=== PATIENT | male | born 1945 | race Caucasian/White ===

== ENCOUNTER 2020-07-06 15:52 | Observation (INO) ==
[2020-07-06 16:16] LABS: Basophils # (auto) 0.03 K/uL (0-0.2); Basophils % (auto) 0.4 %; Eosinophils # (auto) 0.18 K/uL (0-0.5); Eosinophils % (auto) 2.2 %; Hematocrit (blood only) 42.3 % (42-52); Hemoglobin 14.5 g/dL (14.0-18.0); Immature Granulocytes # (auto) 0.03 K/uL (0.00-0.02); Immature Granulocytes % (auto) 0.4 %; Lymphocytes # (auto) 2.56 K/uL (1.2-3.4); Lymphocytes % (auto) 31.9 %; Mean Corpuscular Hgb Conc 34.3 g/dL (32-36); Mean Corpuscular Volume 93.4 fL (80-100); Mean Platelet Volume 9.6 fL (7.4-10.4); Monocytes # (auto) 0.81 K/uL (0.11-0.59); Monocytes % (auto) 10.1 %; Neutrophils # (auto) 4.41 K/uL (1.4-6.5); Platelet Count 220 K/uL (130-400); RDW Coefficient of Variation 13.1 % (11.5-14.5); RDW Standard Deviation 44.8 fL (36.4-46.3); Red Blood Count 4.53 M/uL (4.7-6.1); White Blood Count 8.02 K/uL (4.8-10.8)
[2020-07-06 16:32] LABS: Partial Thromboplastin Ratio 0.9; Partial Thromboplastin Time 25.7 Seconds (21.0-31.0); Prothrombin Time 10.4 Seconds (9.0-12.0)
[2020-07-06 16:33] LABS: Alanine Aminotransferase 83 U/L (12-78); Albumin Level 3.9 gm/dl (3.4-5.0); Aspartate Aminotransferase 37 U/L (15-37); BUN Creatinine Ratio 17.1 (10-20); Blood Urea Nitrogen 16 mg/dl (7-18); Calcium 9.6 mg/dl (8.5-10.1); Carbon Dioxide 29 mmol/L (21-32); Chloride 104 mmol/L (98-107); Creatinine Clr Calc Pharmacy 74.6 ml/min; Est GFR (African American) 97.2; Est GFR (Non-African American) 83.9; Glucose 166 mg/dl (70-99); Magnesium 2.2 mg/dl (1.8-2.4); Potassium 4.2 mmol/L (3.5-5.1); Sodium 138 mmol/L (136-145)
[2020-07-06 16:38] LABS: Alkaline Phosphatase 100 U/L (45-117); Bilirubin,Total 0.5 mg/dl (0.2-1); Globulin 3.9 gm/dl (2.5-4.0); Total Protein 7.8 gm/dl (6.4-8.2); Troponin I < 0.015 ng/ml (0-0.045)
--- NOTE | 2020-07-06 16:41 | Emergency Department Note ---
Impression & Plan Transient cerebral ischemia, Acute confusion, Blood glucose elevated ED Provider Note NAME: JC NEGRETE AGE: 74 SEX: M : 1945 ARRIVES VIA: Walk-In INFORMANT: Patient ED PROVIDER(S): Moe Ngo DO CHIEF COMPLAINT: confusion HPI: Patient is a 74-year-old male who recently had a stroke within the past month that presents to the ER with increased confusion. Patient admits that he does not feel right but is unsure why. notes that he was missing turns while driving and having trouble getting his words out. He denies any headache, change in vision, chest pain, shortness of breath, nausea, vomiting, diarrhea. No dysuria urgency or frequency. No other exacerbating or remitting factors. She notes that this is similar to his previous stroke. ROS: See above HPI for pertinent positives & negatives. A total of 10 systems reviewed and were otherwise negative. PAST MEDICAL HISTORY:See Below PAST SURGICAL HISTORY:See Below FAMILY HISTORY:See Below SOCIAL HISTORY:See Below HOME MEDICATIONS:See Below ALLERGIES:See Below VITALS:See Below PHYSICAL EXAMINATION: GENERAL: Sitting up in bed, alert, well appearing, well nourished, no distress, non-toxic EYE EXAM: normal conjunctiva. PERRL and EOM's intact. OROPHARYNX: no exudate, no erythema, lips, buccal mucosa, and tongue normal and mucous membranes are moist NECK: supple, no nuchal rigidity, no adenopathy, non-tender LUNGS: Clear to auscultation. Normal chest wall mechanics HEART: no murmurs, S1 normal and S2 normal ABDOMEN: abdomen soft, non-tender, normo-active bowel sounds, no masses, no rebound or guarding. BACK: Back is symmetrical on inspection and there is no deformity, no midline tenderness, no CVA tenderness. SKIN: no rashes and no bruising UPPER EXTREMITIES: upper extremities are grossly normal. LOWER EXTREMITIES: No pitting edema. NEURO EXAM: Confused to today's events, cranial nerves II-XII intact, normal speech, no weakness of arms, no weakness of legs. No drift. Finger to nose intact. Gross sensation intact. [id number] intact. Rapid alternating move ments of upper extremities intact MEDICAL DECISION MAKING: Patient is a 74-year-old male who presents the ER for confusion and trouble talking per . Recently had a stroke back in April and this was similar but not nearly as bad. He denies any focal deficits. He was hypertensive. Symptoms have been present for the past 2 days. IV was established blood work was obtained and shows no significant leukocytosis or anemia. INR was unremarkable. BMP was remarkable for an elevated glucose. LFTs bilirubin and troponin was negative. TSH unremarkable. UA was clean. CT of the head as well as angios of the head and neck shows severe stenosis but no acute occlusion. Chest x-ray was unremarkable. Patient was discussed with the hospitalist for further evaluation as he was still confused on bedside exam. Discussed with Dr. Reddy for further evaluation and admission. Patient does not take any other antiplatelets other than aspirin. Triage Nursing notes reviewed. Prior medical records reviewed Vital Signs: reviewed and remarkable for no significant abnormalities Differential diagnosis: Differential Diagnosis includes but is not limited to ischemic Stroke, hemorrhagic stroke, bells palsy, mass, neoplasm, migraine headache, seizure, subarachnoid hemorrhage, TIA, and transient global amnesia. ER treatment provided: See below Diagnostics interpreted by me: ECG: Sinus rhythm with PACs Left axis No PVCs Normal QTC Cardiac Monitoring: An order was placed for continuous cardiac monitoring. The monitor shows a rate of 71 with sinus rhythm. Laboratory studies: As stated above and show below. Imaging studies: CT Angio of the head and neck as well as CT of the head as discussed above Portable AP upright 1 view of the chest shows no focal infiltrate Consultation(s): Cussed with Dr. Sincere Reddy for admission ED COURSE: Procedures: none Critical Care: None Past Med/Surg History Social History Smoking Status: Never smoker Feels Safe at Home: Yes Allergies Allergies Allergy/AdvReac Type Severity Reaction Status Date / Time No Known Allergies Allergy Unverified 07/06/20 16:09 Home Meds Home Medications Medication Instructions Recorded Confirmed amlodipine 5 mg PO DAILY 07/06/20 07/06/20 aspirin [Aspir-81] 81 mg PO DAILY 07/06/20 07/06/20 atorvastatin 80 mg PO DAILY 07/06/20 07/06/20 clopidogrel [Plavix] 75 mg PO DAILY 07/06/20 07/06/20 insulin aspart U-100 [Novolog 0 unit SUBCUT TIDM 07/06/20 07/06/20 PenFill U-100 Insulin] insulin degludec [Tresiba 22 unit SUBCUT HS 07/06/20 07/06/20 FlexTouch U-100] metformin 500 mg PO BID 07/06/20 07/06/20 Results & Data (ED) Vital Signs Vital Signs - 24 hr 07/06/20 15:54 07/06/20 16:04 07/06/20 16:10 Temperature 36.6 C Temperature Source Oral Pulse Rate 70 103 H 68 Pulse Rate from SpO2 Sensor 69 68 Respiratory Rate 16 14 16 Respiratory Effort / Characteristics Non-Labored Respiratory Depth Normal Blood Pressure 160/85 H 165/77 H 163/95 H Blood Pressure Mean 110 83 108 Pulse Oximetry 94 97 98 Oxygen Delivery Method Room Air Sepsis Recent Fever Within 48 Hours No Sepsis New/Unexplained Change in Mental Status No Sepsis Action Taken by Nursing No Action Required 07/06/20 16:20 07/06/20 16:33 07/06/20 17:00 Temperature Temperature Source Pulse Rate 68 64 Pulse Rate from SpO2 Sensor 68 62 71 Respiratory Rate 14 17 Respiratory Effort / Characteristics Respiratory Depth Blood Pressure 141/83 H Blood Pressure Mean 99 Pulse Oximetry 95 96 98 Oxygen Delivery Method Sepsis Recent Fever Within 48 Hours Sepsis New/Unexplained Change in Mental Status Sepsis Action Taken by Nursing 07/06/20 17:30 07/06/20 17:31 07/06/20 18:00 Temperature Temperature Source Pulse Rate 68 69 63 Pulse Rate from SpO2 Sensor 68 68 63 Respiratory Rate 21 17 15 Respiratory Effort / Characteristics Respiratory Depth Blood Pressure 150/90 H Blood Pressure Mean 108 Pulse Oximetry 96 95 94 Oxygen Delivery Method Room Air Sepsis Recent Fever Within 48 Hours Sepsis New/Unexplained Change in Mental Status Sepsis Action Taken by Nursing 07/06/20 18:29 07/06/20 18:31 Temperature Temperature Source Pulse Rate 69 60 Pulse Rate from SpO2 Sensor 70 Respiratory Rate 15 15 Respiratory Effort / Characteristics Respiratory Depth Blood Pressure 150/89 H Blood Pressure Mean 110 Pulse Oximetry 97 Oxygen Delivery Method Sepsis Recent Fever Within 48 Hours Sepsis New/Unexplained Change in Mental Status Sepsis Action Taken by Nursing Laboratory Data Result diagrams: 07/06/20 16:05 07/06/20 16:05 Lab Results 07/06/20 07/06/20 07/06/20 Range/Units 16:05 16:05 16:05 WBC 8.02 (4.8-10.8) K/uL RBC 4.53 L (4.7-6.1) M/uL Hgb 14.5 (14.0-18.0) g/dL POC Hgb (14.0-18.0) g/dl Hct 42.3 (42-52) % POC Hct (42-52) % MCV 93.4 (80-100) fL MCH 32.0 (25-34) pg MCHC 34.3 (32-36) g/dL RDW Std Deviation 44.8 (36.4-46.3) fL RDW Coeff of Nikita 13.1 (11.5-14.5) % Plt Count 220 (130-400) K/uL MPV 9.6 (7.4-10.4) fL Immature Gran % (Auto) 0.4 % Neut % (Auto) 55.0 % Lymph % (Auto) 31.9 % [place] % (Auto) 10.1 % Eos % (Auto) 2.2 % Baso % (Auto) 0.4 % Neut # (Auto) 4.41 (1.4-6.5) K/uL Lymph # (Auto) 2.56 (1.2-3.4) K/uL [place] # (Auto) 0.81 H (0.11-0.59) K/uL Eos # (Auto) 0.18 (0-0.5) K/uL Baso # (Auto) 0.03 (0-0.2) K/uL Immature Gran # (Auto) 0.03 H (0.00-0.02) K/uL PT 10.4 (9.0-12.0) Seconds INR 1.0 (0.9-1.1) APTT 25.7 (21.0-31.0) Seconds PTT Ratio 0.9 POC Sodium (135-144) mmol/L Sodium 138 (136-145) mmol/L POC Potassium (3.3-5.0) mmol/L Potassium 4.2 (3.5-5.1) mmol/L POC Chloride (101-112) mmol/L Chloride 104 (98-107) mmol/L Carbon Dioxide 29 (21-32) mmol/L POC Total CO2 (24-31) mmol/L Anion Gap 5.0 (3-11) POC Anion Gap (16-25) mmol/L POC BUN (7-18) mg/dl BUN 16 (7-18) mg/dl Creatinine 0.91 (0.6-1.4) mg/dl POC Creatinine (0.6-1.3) mg/dl Est Cr Clr Drug Dosing 74.6 ml/min Est GFR ( Amer) 97.2 Est GFR (Non-Af Amer) 83.9 BUN/Creatinine Ratio 17.1 (10-20) Glucose 166 H (70-99) mg/dl POC Glucose (70-99) mg/dl POC Glucose (other) (70-99) mg/dl Calcium 9.6 (8.5-10.1) mg/dl POC Ioniz Calcium Dedrick (1.12-1.32) mmol/l Magnesium 2.2 (1.8-2.4) mg/dl Total Bilirubin 0.5 (0.2-1) mg/dl AST 37 (15-37) U/L ALT 83 H (12-78) U/L Alkaline Phosphatase 100 (45-117) U/L Troponin I < 0.015 (0-0.045) ng/ml Total Protein 7.8 (6.4-8.2) gm/dl Albumin 3.9 (3.4-5.0) gm/dl Globulin 3.9 (2.5-4.0) gm/dl Albumin/Globulin Ratio 1.0 (0.9-2) TSH (0.300-4.500) uIu/ml Urine Color Urine Appearance (Clear) Urine pH (4.5-7.5) Ur Specific [place] (1.000-1.030) Urine Protein (Negative) Urine Glucose (UA) (Negative) Urine Ketones (Negative) Urine Blood (Negative) Urine Nitrite (Negative) Urine Bilirubin (Negative) Urine Urobilinogen (Negative) Ur Leukocyte Esterase (Negative) Urine WBC (Auto) (0-5) /hpf Urine RBC (Auto) (0-4) /hpf U Hyaline Cast (Auto) (0-5) /lpf U Epithel Cells (Auto) (0-5) /lpf Urine Bacteria (Auto) (Negative) 07/06/20 07/06/20 07/06/20 Range/Units 16:05 16:13 16:32 WBC (4.8-10.8) K/uL RBC (4.7-6.1) M/uL Hgb (14.0-18.0) g/dL POC Hgb 15.0 (14.0-18.0) g/dl Hct (42-52) % POC Hct 44 (42-52) % MCV (80-100) fL MCH (25-34) pg MCHC (32-36) g/dL RDW Std Deviation (36.4-46.3) fL RDW Coeff of Nikita (11.5-14.5) % Plt Count (130-400) K/uL MPV (7.4-10.4) fL Immature Gran % (Auto) % Neut % (Auto) % Lymph % (Auto) % [place] % (Auto) % Eos % (Auto) % Baso % (Auto) % Neut # (Auto) (1.4-6.5) K/uL Lymph # (Auto) (1.2-3.4) K/uL [place] # (Auto) (0.11-0.59) K/uL Eos # (Auto) (0-0.5) K/uL Baso # (Auto) (0-0.2) K/uL Immature Gran # (Auto) (0.00-0.02) K/uL PT (9.0-12.0) Seconds INR (0.9-1.1) APTT (21.0-31.0) Seconds PTT Ratio POC Sodium 139 (135-144) mmol/L Sodium (136-145) mmol/L POC Potassium 4.3 (3.3-5.0) mmol/L Potassium (3.5-5.1) mmol/L POC Chloride 100 L (101-112) mmol/L Chloride (98-107) mmol/L Carbon Dioxide (21-32) mmol/L POC Total CO2 27 (24-31) mmol/L Anion Gap (3-11) POC Anion Gap 17.0 (16-25) mmol/L POC BUN 17 (7-18) mg/dl BUN (7-18) mg/dl Creatinine (0.6-1.4) mg/dl POC Creatinine 0.8 (0.6-1.3) mg/dl Est Cr Clr Drug Dosing ml/min Est GFR ( Amer) Est GFR (Non-Af Amer) BUN/Creatinine Ratio (10-20) Glucose (70-99) mg/dl POC Glucose (70-99) mg/dl POC Glucose (other) 165 H (70-99) mg/dl Calcium (8.5-10.1) mg/dl POC Ioniz Calcium Dedrick 1.23 (1.12-1.32) mmol/l Magnesium (1.8-2.4) mg/dl Total Bilirubin (0.2-1) mg/dl AST (15-37) U/L ALT (12-78) U/L Alkaline Phosphatase (45-117) U/L Troponin I (0-0.045) ng/ml Total Protein (6.4-8.2) gm/dl Albumin (3.4-5.0) gm/dl Globulin (2.5-4.0) gm/dl Albumin/Globulin Ratio (0.9-2) TSH 0.820 (0.300-4.500) uIu/ml Urine Color Dark Yellow Urine Appearance Turbid A (Clear) Urine pH 7.5 (4.5-7.5) Ur Specific [place] 1.019 (1.000-1.030) Urine Protein Negative (Negative) Urine Glucose (UA) Trace H (Negative) Urine Ketones Negative (Negative) Urine Blood Negative (Negative) Urine Nitrite Negative (Negative) Urine Bilirubin Negative (Negative) Urine Urobilinogen Negative (Negative) Ur Leukocyte Esterase Negative (Negative) Urine WBC (Auto) 1-5 (0-5) /hpf Urine RBC (Auto) 0-4 (0-4) /hpf U Hyaline Cast (Auto) 1-5 (0-5) /lpf U Epithel Cells (Auto) 5-10 H (0-5) /lpf Urine Bacteria (Auto) Negative (Negative) 07/06/20 Range/Units 19:10 WBC (4.8-10.8) K/uL RBC (4.7-6.1) M/uL Hgb (14.0-18.0) g/dL POC Hgb (14.0-18.0) g/dl Hct (42-52) % POC Hct (42-52) % MCV (80-100) fL MCH (25-34) pg MCHC (32-36) g/dL RDW Std Deviation (36.4-46.3) fL RDW Coeff of Nikita (11.5-14.5) % Plt Count (130-400) K/uL MPV (7.4-10.4) fL Immature Gran % (Auto) % Neut % (Auto) % Lymph % (Auto) % [place] % (Auto) % Eos % (Auto) % Baso % (Auto) % Neut # (Auto) (1.4-6.5) K/uL Lymph # (Auto) (1.2-3.4) K/uL [place] # (Auto) (0.11-0.59) K/uL Eos # (Auto) (0-0.5) K/uL Baso # (Auto) (0-0.2) K/uL Immature Gran # (Auto) (0.00-0.02) K/uL PT (9.0-12.0) Seconds INR (0.9-1.1) APTT (21.0-31.0) Seconds PTT Ratio POC Sodium (135-144) mmol/L Sodium (136-145) mmol/L POC Potassium (3.3-5.0) mmol/L Potassium (3.5-5.1) mmol/L POC Chloride (101-112) mmol/L Chloride (98-107) mmol/L Carbon Dioxide (21-32) mmol/L POC Total CO2 (24-31) mmol/L Anion Gap (3-11) POC Anion Gap (16-25) mmol/L POC BUN (7-18) mg/dl BUN (7-18) mg/dl Creatinine (0.6-1.4) mg/dl POC Creatinine (0.6-1.3) mg/dl Est Cr Clr Drug Dosing ml/min Est GFR ( Amer) Est GFR (Non-Af Amer) BUN/Creatinine Ratio (10-20) Glucose (70-99) mg/dl POC Glucose 102 H (70-99) mg/dl POC Glucose (other) (70-99) mg/dl Calcium (8.5-10.1) mg/dl POC Ioniz Calcium Dedrick (1.12-1.32) mmol/l Magnesium (1.8-2.4) mg/dl Total Bilirubin (0.2-1) mg/dl AST (15-37) U/L ALT (12-78) U/L Alkaline Phosphatase (45-117) U/L Troponin I (0-0.045) ng/ml Total Protein (6.4-8.2) gm/dl Albumin (3.4-5.0) gm/dl Globulin (2.5-4.0) gm/dl Albumin/Globulin Ratio (0.9-2) TSH (0.300-4.500) uIu/ml Urine Color Urine Appearance (Clear) Urine pH (4.5-7.5) Ur Specific [place] (1.000-1.030) Urine Protein (Negative) Urine Glucose (UA) (Negative) Urine Ketones (Negative) Urine Blood (Negative) Urine Nitrite (Negative) Urine Bilirubin (Negative) Urine Urobilinogen (Negative) Ur Leukocyte Esterase (Negative) Urine WBC (Auto) (0-5) /hpf Urine RBC (Auto) (0-4) /hpf U Hyaline Cast (Auto) (0-5) /lpf U Epithel Cells (Auto) (0-5) /lpf Urine Bacteria (Auto) (Negative) Administered Medications Discontinued Medications Ioversol (Ioversol 100ml) 116 ml IV ONCE ONE Stop: 07/06/20 16:49 Last Admin: 07/06/20 16:48 Dose: 116 ml Documented by: [id number] Discharge Plan Visit Data Chief Complaint: TIA Symptoms Stated Complaint: STROKE SYMPTOMS ED Provider: Moe Ngo ED Midlevel Provider: Jaclyn Sewell Discharge Problem: Transient cerebral ischemia, Acute confusion, Blood glucose elevated Forms Stand Alone Forms: My [facility] [employer] Prescriptions Prescriptions: No Action metformin 500 mg Tablet 500 mg PO BID RF: 0 atorvastatin 80 mg Tablet 80 mg PO DAILY RF: 0 clopidogrel [Plavix] 75 mg Tablet 75 mg PO DAILY RF: 0 amlodipine 5 mg Tablet 5 mg PO DAILY RF: 0 aspirin [Aspir-81] 81 mg Tablet,Delayed Release (Dr/Ec) 81 mg PO DAILY RF: 0 insulin aspart U-100 [Novolog PenFill U-100 Insulin] 100 unit/mL Cartridge 0 unit SUBCUT TIDM RF: 0 Tresiba FlexTouch U-100 100 unit/mL (3 mL) Insulin Pen 22 unit SUBCUT HS RF: 0 Referrals Referrals: Gera Hanley DO [Primary Care Provider] - Resident Activity Tracking Resident Involvement: Resident Care Provided (Patient seen in conjunction with Dr. Ngo, please see his medical decision making above.) Care Provided: Adult ED Discharge Problem: Transient cerebral ischemia Qualifiers: Transient cerebral ischemia type: unspecified Qualified Code(s): G45.9 - Transient cerebral ischemic attack, unspecified
[2020-07-06 16:46] LABS: Appearance Urine Turbid (Clear); Bacteria Urine Automated Negative (Negative); Bilirubin Urine Negative (Negative); Blood Urine Negative (Negative); Color Urine Dark Yellow; Glucose Urine UA Trace (Negative); Ketones Urine Negative (Negative); Leukocyte Esterase Urine Negative (Negative); Nitrite Urine Negative (Negative); Protein Urine Negative (Negative); RBC Urine Automated 0-4 /hpf (0-4); Specific Gravity Urine 1.019 (1.000-1.030); Urobilinogen Urine Negative (Negative); pH Urine 7.5 (4.5-7.5)
[2020-07-06] MEDS ORDERED: IOVERSOL 100ml IV ONE (16:48)
--- NOTE | 2020-07-06 17:10 | CT Scan Report ---
HEAD CT NONCONTRAST CT DOSE: HISTORY: Altered mental status. Stroke evaluation TECHNIQUE: Multiaxial CT images of the head were performed without the use of intravenous contrast. A utomated exposure control was utilized for this study. A dose lowering technique was utilized adheri ng to the principles of ALARA. Comparison: None. Findings: The paranasal sinuses and mastoid air cells are clear. The calvarium and skull base are int act. The ventricles and sulci are within normal limits. There is no mass, hematoma, midline shift, or acute infarct. Impression: No acute intracranial abnormality. ACT 112: Negative or not required by law. Electronically signed by: Vidal Sears M.D. 07/06/2020 5:08 PM
--- NOTE | 2020-07-06 17:17 | CT Scan Report ---
CT angio neck with con, CT angio head w con CLINICAL HISTORY: 74 years-old Male with Stroke evaluation. Acute strokelike symptoms COMPARISON STUDY: Head CT of same day TECHNIQUE: Following the IV administration of 116 mL of Optiray 320, CT angiogram of the head and nec k was performed from the aortic arch to the skull apex. Images are reviewed in the axial, sagittal, a nd coronal planes. 3-D MIPS images are created and assessed. IV contrast was administered without com plication. All measurements were calculated based on NASCET criteria. A dose lowering technique was utilized adhering to the principles of ALARA. CT DOSE: 1092.71 mGy.cm FINDINGS: The imaged opacified pulmonary arterial tree is unremarkable. Three-vessel morphology of the thoracic aortic arch. There is patency of the imaged subclavian arteries and innominate artery. The bilateral common carotid arteries are widely patent. Mild to moderate mixed plaque of the carotid bulbs and pr oximal internal carotid arteries without significant stenosis. There is mild tortuosity involving the distal cervical segment left ICA. Mild luminal narrowing of less than 50% involves the petrous porti on left ICA on image 327 of series 4. Calcified plaque of the clinoid segments without significant st enosis. There is mild to moderate multifocal luminal narrowing of the middle cerebral arteries. Hypop lastic right A1 segment, likely developmental. Anterior cerebral arteries are otherwise unremarkable and patent. Dominant right vertebral artery. Mild luminal narrowing of less than 50% at the origin of the right v ertebral artery. There is flattening with 40% luminal narrowing involving the V2 segment right verteb ral artery at the level of C5 secondary to spondylitic spurring and facet arthrosis. 6 mm segment of high-grade stenosis involves the V4 segment right vertebral artery on image 305 series 4. Development al with diminutive left vertebral artery is patent. Short segment area of at least moderate luminal n arrowing involves the left V4 segment. There is moderate multifocal luminal narrowing of the basilar artery. origin of the left posterior cerebral artery. Focal short segment area of high-grade st enosis involves the right P1 segment on image 369 series 4. There is at least moderate multifocal lum inal narrowing of the bilateral posterior cerebral arteries. The cerebral venous sinuses are patent. There is a suggested small abdominal venous anomaly of the left triple hemisphere on image 198 series 5. Lung apices are clear. No pneumothorax. Unremarkable thyroid. Unremarkable soft tissues. IMPRESSION: 1. Focal short segment area of high-grade stenosis involves the P1 segment of the right posterior cer ebral artery. 2. There is at least moderate multifocal luminal narrowing of the posterior cerebral arteries bilater ally. 3. Short segment high-grade stenosis involves the V4 segment right vertebral artery. 4. Mild luminal narrowing of less than 50% involves the petrous portion left ICA. 5. No aneurysm, dissection or proximal branch occlusion identified. ACT 112: Negative or not required by law. The above report was generated using voice recognition software. It may contain grammatical, syntax o r spelling errors. Electronically signed by: Jeremy Borja M.D. 07/06/2020 5:16 PM
--- NOTE | 2020-07-06 17:46 | XRay Report ---
XR chest 1V portable HISTORY: confusion COMPARISON: None. FINDINGS: A 4 mm nodule within the left upper lobe favors a calcified granuloma. Otherwise, lungs are clear. No pleural effusions. No pneumothorax. The heart is normal in size. IMPRESSION: No acute process. ACT 112: Negative or not required by law. Electronically signed by: Vidal Sears M.D. 07/06/2020 5:44 PM
[2020-07-06 18:39] LABS: iSTAT Creatinine 0.8 mg/dl (0.6-1.3); iSTAT Ionized Calcium 1.23 mmol/l (1.12-1.32); iSTAT Potassium 4.3 mmol/L (3.3-5.0)
[2020-07-06] MEDS ORDERED: DEXTROSE 50% 50 ML SYRINGE IV PRN (21:38)
[2020-07-06] MEDS ORDERED: GLUCAGON FOR INJ 1 MG VIAL SQ PRN (21:38)
[2020-07-06] MEDS ORDERED: ACETAMINOPHEN 325 MG TAB PO PRN (21:38)
[2020-07-06] MEDS ORDERED: CARBOHYDRATES FOR HYPOGLYCEMIA PO PRN (21:38)
[2020-07-06] MEDS ORDERED: GLUCOSE 40% GEL 15 GM TUBE PO PRN (21:38)
[2020-07-06] MEDS ORDERED: PROMETHAZINE HCL 12.5 MG in SODIUM CHLORIDE 0.9% 50 ML IV PRN (21:38)
[2020-07-06] MEDS ORDERED: SODIUM CHLORIDE 0.9% 1000ML 1,000 ML IV ONE (21:38)
[2020-07-06] MEDS ORDERED: GLUCOSE 10 TABS/TUBE PO PRN (21:38)
[2020-07-06] MEDS ORDERED: PNEUMOCOCCAL POLYSACCHARIDES 25 MCG/0.5 ML VIAL/SYR IM ONE (21:49)
[2020-07-06] MEDS ORDERED: PNEUMOCOCCAL ADMINISTRATION CHARGE ONE (21:49)
--- NOTE | 2020-07-06 21:49 | History & Physical Report ---
Date of Service July 06, 2020 Assessment & Plan (1) Memory impairment: Gradual progression of cognitive deficits post CVA confinement from 2 months ago. hypertension, slightly related hyperlipidemia, on statin Rx DM 2 insulin requiring, unknown baseline past tobacco abuse OBS Medical telemetry [facility] Neurology consult RE post CVA memory impairment/stroke education for patient and . Obtain records of recent confinement at [facility] and outpatient [facility] Neurology visit PT OT eval Basal insulin, ISS BG goal [id number], carb count coverage, check hemoglobin A1c DVT prophylaxis. Lovenox subcu Full code Patient's requesting updates for providers. Ms. Ana Maria Oconnor, contact numbers [phone] 03/29 [phone]. Text document was generated using [employer] voice recognition software. It may contain grammatical or spelling errors. Kindly contact undersigned for clarification of any documentation item in question. Admission and Anticipated Discharge Date Admission Date: July 06, 2020 History of Present Illness Chief Complaint: Memory problems as per Primary Care Provider: New PCP : Gera Hanley DO (patient has not met provider.) Former PCP : Satya Perrin DO History obtained from patient, family, and records. Patient is not a reliable historian given memory impairment. Medical history significant for CVA, hypertension, hyperlipidemia, DM 2 insulin requiring, past tobacco abuse. Patient is a resident of [place], [place] who recently switched to [facility] primary care physician in [facility] [address]. Patient confined at [facility] in 2017 for transient short-term memory problems. As per , patient initially admitted with stroke diagnosis but was told on discharge that symptoms were not from stroke. Patient however newly diagnosed to have hypertension, hype rlipidemia, and DM2 during confinement for which medications were prescribed. Patient/ chose not to comply with because they wanted to try "natural" methods first like herbal medications and weight loss. Patient admitted at [facility] 2 months ago for short-term memory problems again. Patient diagnosed to have a thalamic stroke as per . They were also told by neurologist that imaging from 2017 confinement supported stroke findings. Patient discharged on new antiplatelet, HTN, cholesterol, and insulin medications and has been compliant since. Since discharge from the hospital, patient noted slow progression of short- term memory issues. Patient's was wondering if may have benefited from some therapy for cognitive deficits but she never got to ask question from inpatient and outpatient providers even on follow-up visits thinking that 'they should have recommended that if it was necessary.' Patient brought to the ER for evaluation by this afternoon. No arm or leg weakness. No slurred speech, facial weakness complaints. Patient denies headache, chest pain, S OB, abdominal pain symptoms. Patient compliant with home medications. Medical History as above Surgical History : None Family History : Heart disease Personal/Social history : Past tobacco abuse, daily alcohol intake denies abuse as per , retired [employer] employee Allergies Allergy/AdvReac Type Severity Reaction Status Date / Time No Known Allergies Allergy Unverified 07/06/20 16:09 Home Medications Home Medications Medication Instructions Recorded Confirmed Type amlodipine 5 mg PO DAILY 07/06/20 07/06/20 History aspirin [Aspir-81] 81 mg PO DAILY 07/06/20 07/06/20 History atorvastatin 80 mg PO DAILY 07/06/20 07/06/20 History clopidogrel [Plavix] 75 mg PO DAILY 07/06/20 07/06/20 History insulin aspart U-100 [Novolog 0 unit SUBCUT TIDM 07/06/20 07/06/20 History PenFill U-100 Insulin] insulin degludec [Tresiba 22 unit SUBCUT HS 07/06/20 07/06/20 History FlexTouch U-100] metformin 500 mg PO BID 07/06/20 07/06/20 History Past Med/Surg History Social History Smoking Status: Former smoker Do You Dip or Chew Tobacco: No; Hx Alcohol Use: Yes Alcohol type: beer Hx Substance Use: No Preferred Language: Turkmen Communication Ability: Effective Leather Shaver Required: No Beliefs That Will Affect Care: None Current Living Situation: Spouse Feels Safe at Home: No Review of Systems Review of Systems: Could not be reliably obtained Physical Exam Physical Exam: GENERAL: Comfortable, pleasant, no respiratory distress SKIN: Normal color, warm HEENT: [place] palpebral conjunctivae, no ptosis, dry buccal mucosa NECK : Supple, no tenderness CHEST : CTA, no tenderness HEART : RRR, systolic murmur ABDOMEN: Some distention, nontender EXTREMITIES : No LE swelling/tenderness, no other conspicuous deformities noted NEUROLOGIC : Coherent, oriented to place, no facial asymmetry, no other gross focality Results & Data Results & Data ([facility]) Vital Signs (Past 12 Hours) Vital Signs Temp Pulse Pulse Resp BP BP Pulse Ox 07/06/20 21:15 36.8 C 69 18 158/83 H 97 07/06/20 18:31 60 15 07/06/20 18:29 69 15 150/89 H 97 07/06/20 18:00 63 15 94 07/06/20 17:31 69 17 150/90 H 95 07/06/20 17:30 68 21 96 07/06/20 17:00 98 07/06/20 16:33 64 17 96 07/06/20 16:20 68 14 141/83 H 95 07/06/20 16:10 68 16 163/95 H 98 07/06/20 16:04 103 H 14 165/77 H 97 07/06/20 15:54 36.6 C 70 16 160/85 H 94 Laboratory Results Laboratory Results WBC 8.02 K/uL (4.8-10.8) 07/06/20 16:05 RBC 4.53 M/uL (4.7-6.1) L 07/06/20 16:05 Hgb 14.5 g/dL (14.0-18.0) 07/06/20 16:05 POC Hgb 15.0 g/dl (14.0-18.0) 07/06/20 16:13 Hct 42.3 % (42-52) 07/06/20 16:05 POC Hct 44 % (42-52) 07/06/20 16:13 MCV 93.4 fL (80-100) 07/06/20 16:05 MCH 32.0 pg (25-34) 07/06/20 16:05 MCHC 34.3 g/dL (32-36) 07/06/20 16:05 RDW Std Deviation 44.8 fL (36.4-46.3) 07/06/20 16:05 RDW Coeff of Nikita 13.1 % (11.5-14.5) 07/06/20 16:05 Plt Count 220 K/uL (130-400) 07/06/20 16:05 MPV 9.6 fL (7.4-10.4) 07/06/20 16:05 Immature Gran % (Auto) 0.4 % 07/06/20 16:05 Neut % (Auto) 55.0 % 07/06/20 16:05 Lymph % (Auto) 31.9 % 07/06/20 16:05 Cannon % (Auto) 10.1 % 07/06/20 16:05 Eos % (Auto) 2.2 % 07/06/20 16:05 Baso % (Auto) 0.4 % 07/06/20 16:05 Neut # (Auto) 4.41 K/uL (1.4-6.5) 07/06/20 16:05 Lymph # (Auto) 2.56 K/uL (1.2-3.4) 07/06/20 16:05 Cannon # (Auto) 0.81 K/uL (0.11-0.59) H 07/06/20 16:05 Eos # (Auto) 0.18 K/uL (0-0.5) 07/06/20 16:05 Baso # (Auto) 0.03 K/uL (0-0.2) 07/06/20 16:05 Immature Gran # (Auto) 0.03 K/uL (0.00-0.02) H 07/06/20 16:05 PT 10.4 Seconds (9.0-12.0) 07/06/20 16:05 INR 1.0 (0.9-1.1) 07/06/20 16:05 APTT 25.7 Seconds (21.0-31.0) 07/06/20 16:05 PTT Ratio 0.9 07/06/20 16:05 POC Sodium 139 mmol/L (135-144) 07/06/20 16:13 Sodium 138 mmol/L (136-145) 07/06/20 16:05 POC Potassium 4.3 mmol/L (3.3-5.0) 07/06/20 16:13 Potassium 4.2 mmol/L (3.5-5.1) 07/06/20 16:05 POC Chloride 100 mmol/L (101-112) L 07/06/20 16:13 Chloride 104 mmol/L (98-107) 07/06/20 16:05 Carbon Dioxide 29 mmol/L (21-32) 07/06/20 16:05 POC Total CO2 27 mmol/L (24-31) 07/06/20 16:13 Anion Gap 5.0 (3-11) 07/06/20 16:05 POC Anion Gap 17.0 mmol/L (16-25) 07/06/20 16:13 POC BUN 17 mg/dl (7-18) 07/06/20 16:13 BUN 16 mg/dl (7-18) 07/06/20 16:05 Creatinine 0.91 mg/dl (0.6-1.4) 07/06/20 16:05 POC Creatinine 0.8 mg/dl (0.6-1.3) 07/06/20 16:13 Est Cr Clr Drug Dosing 74.6 ml/min 07/06/20 16:05 Est GFR ( Amer) 97.2 07/06/20 16:05 Est GFR (Non-Af Amer) 83.9 07/06/20 16:05 BUN/Creatinine Ratio 17.1 (10-20) 07/06/20 16:05 Glucose 166 mg/dl (70-99) H 07/06/20 16:05 POC Glucose 102 mg/dl (70-99) H 07/06/20 19:10 POC Glucose (other) 165 mg/dl (70-99) H 07/06/20 16:13 Calcium 9.6 mg/dl (8.5-10.1) 07/06/20 16:05 POC Ioniz Calcium Dedrick 1.23 mmol/l (1.12-1.32) 07/06/20 16:13 Magnesium 2.2 mg/dl (1.8-2.4) 07/06/20 16:05 Total Bilirubin 0.5 mg/dl (0.2-1) 07/06/20 16:05 AST 37 U/L (15-37) 07/06/20 16:05 ALT 83 U/L (12-78) H 07/06/20 16:05 Alkaline Phosphatase 100 U/L (45-117) 07/06/20 16:05 Troponin I < 0.015 ng/ml (0-0.045) 07/06/20 16:05 Total Protein 7.8 gm/dl (6.4-8.2) 07/06/20 16:05 Albumin 3.9 gm/dl (3.4-5.0) 07/06/20 16:05 Globulin 3.9 gm/dl (2.5-4.0) 07/06/20 16:05 Albumin/Globulin Ratio 1.0 (0.9-2) 07/06/20 16:05 TSH 0.820 uIu/ml (0.300-4.500) 07/06/20 16:05 Urine Color Dark Yellow 07/06/20 16:32 Urine Appearance Turbid (Clear) A 07/06/20 16:32 Urine pH 7.5 (4.5-7.5) 07/06/20 16:32 Ur Specific [place] 1.019 (1.000-1.030) 07/06/20 16:32 Urine Protein Negative (Negative) 07/06/20 16:32 Urine Glucose (UA) Trace (Negative) H 07/06/20 16:32 Urine Ketones Negative (Negative) 07/06/20 16:32 Urine Blood Negative (Negative) 07/06/20 16:32 Urine Nitrite Negative (Negative) 07/06/20 16:32 Urine Bilirubin Negative (Negative) 07/06/20 16:32 Urine Urobilinogen Negative (Negative) 07/06/20 16:32 Ur Leukocyte Esterase Negative (Negative) 07/06/20 16:32 Urine WBC (Auto) 1-5 /hpf (0-5) 07/06/20 16:32 Urine RBC (Auto) 0-4 /hpf (0-4) 07/06/20 16:32 U Hyaline Cast (Auto) 1-5 /lpf (0-5) 07/06/20 16:32 U Epithel Cells (Auto) 5-10 /lpf (0-5) H 07/06/20 16:32 Urine Bacteria (Auto) Negative (Negative) 07/06/20 16:[address] head: No acute intracranial abnormality. CTA head/neck: 1. Focal short segment area of high-grade stenosis involves the P1 segment of the right posterior cerebral artery. 2. There is at least moderate multifocal luminal narrowing of the posterior cerebral arteries bilaterally. 3. Short segment high-grade stenosis involves the V4 segment right vertebral artery. 4. Mild luminal narrowing of less than 50% involves the petrous portion left ICA. 5. No aneurysm, dissection or proximal branch occlusion identified. Brain MRI initial read: No stroke. No intracranial hemorrhage, mass-effect, or edema. Chest x-ray : A 4 mm nodule within the left upper lobe favors a calcified granuloma. Otherwise, lungs are clear. No pleural effusions. No pneumothorax. The heart is normal in size. EKG as per my interpretation : Rate 70, NSR, LAD, LVH, no ischemia
[2020-07-06] MEDS ORDERED: INSULIN GLARGINE SOLOSTAR 100 UNITS/ML 3 ML PEN SC SCH (22:00)
[2020-07-06] MEDS: INSULIN GLARGINE SOLOSTAR 100 UNITS/ML 3 ML PEN SC SCH (23:31)
[2020-07-06] MEDS: INSULIN ASPART 100 UNITS/ML 3 ML PEN SC SCH (23:32)
[2020-07-07] MEDS ORDERED: AMLODIPINE BESYLATE 5 MG TAB PO SCH ×2 (01:10→09:00)
[2020-07-07 03:21] LABS: Lyme Ab IgG w/WB Rflx Negative (Negative); Lyme Ab IgM w/WB Rflx Negative (Negative)
[2020-07-07 05:56] LABS: Estimated Average Glucose 220 mg/dl; Hemoglobin A1C 9.3 % (4.5-5.6)
[2020-07-07 05:59] LABS: Basophils # (auto) 0.02 K/uL (0-0.2); Basophils % (auto) 0.3 %; Eosinophils # (auto) 0.11 K/uL (0-0.5); Eosinophils % (auto) 1.8 %; Hematocrit (blood only) 40.7 % (42-52); Immature Granulocytes # (auto) 0.02 K/uL (0.00-0.02); Immature Granulocytes % (auto) 0.3 %; Lymphocytes # (auto) 1.88 K/uL (1.2-3.4); Mean Corpuscular Hemoglobin 32.3 pg (25-34); Mean Corpuscular Hgb Conc 34.4 g/dL (32-36); Mean Corpuscular Volume 93.8 fL (80-100); Mean Platelet Volume 9.4 fL (7.4-10.4); Monocytes # (auto) 0.78 K/uL (0.11-0.59); Monocytes % (auto) 12.5 %; Neutrophils # (auto) 3.45 K/uL (1.4-6.5); Neutrophils % (auto) 55.1 %; Platelet Count 201 K/uL (130-400); RDW Coefficient of Variation 12.9 % (11.5-14.5); RDW Standard Deviation 44.7 fL (36.4-46.3); Red Blood Count 4.34 M/uL (4.7-6.1); White Blood Count 6.26 K/uL (4.8-10.8)
[2020-07-07 06:26] LABS: Albumin Level 3.5 gm/dl (3.4-5.0); BUN Creatinine Ratio 15.5 (10-20); Calcium 8.8 mg/dl (8.5-10.1); Creatinine Clr Calc Pharmacy 86.7 ml/min; Est GFR (African American) 105.1; Est GFR (Non-African American) 90.7; Potassium 3.9 mmol/L (3.5-5.1)
[2020-07-07 06:28] LABS: Albumin Globulin Ratio 1.1 (0.9-2); Bilirubin,Total 0.6 mg/dl (0.2-1); Globulin 3.3 gm/dl (2.5-4.0); Total Protein 6.8 gm/dl (6.4-8.2)
--- NOTE | 2020-07-07 07:12 | XRay Report ---
BONY ORBITS 3 VIEWS CLINICAL HISTORY: MRI clearance. FINDINGS: 3 views of the bony orbits are obtained. No prior studies are available for comparison at t he time of dictation. There is no radiodense/metallic foreign body seen in the region of the bony orb its. The bony orbits are intact as imaged. The visualized paranasal sinuses and the mastoid air cells appear clear. The imaged calvarium appears intact. IMPRESSION: There is no radiodense/metallic foreign body seen in the region of the bony orbits. ACT 112: Negative or not required by law. Electronically signed by: Krishan Gonzalez M.D. 07/07/2020 7:11 AM
--- NOTE | 2020-07-07 07:25 | Magnetic Resonance Report ---
MRI OF THE BRAIN WITHOUT IV CONTRAST CLINICAL HISTORY: Memory loss. COMPARISON STUDY: CT of the brain dated 07/06/2020. TECHNIQUE: MRI of the brain was performed utilizing various T1 and T2-weighted sequences in the axial , sagittal, and coronal planes. IV contrast was not administered for this examination. The examinatio n is modestly degraded by motion artifact. FINDINGS: Brain parenchyma: There is age-related involutional change noting mild subcortical and periventricula r microangiopathic disease. There is no hemorrhage or mass effect. There is no restricted diffusion t o suggest acute ischemia. Cuadra-white matter differentiation is preserved. No extra-axial fluid collec tion is seen. The cerebellar tonsils are normal in configuration. Ventricles, sulci, and cisterns: Prominent secondary to involutional change. Pituitary and sella: Partially empty sella is incidentally noted. Intracranial vasculature: Normal flow voids are maintained at the skull base. Orbits: The bony orbits are grossly intact. Orbital contents are normal in appearance. Sinuses and mastoids: Clear. Calvarium: Unremarkable. Cervical cord: Partially visualized cervical spinal cord is normal in morphology and signal intensity . IMPRESSION: No acute intracranial abnormality. ACT 112: Negative or not required by law. Electronically signed by: Krishan Gonzalez M.D. 07/07/2020 7:23 AM
[2020-07-07] MEDS: INSULIN ASPART 100 UNITS/ML 3 ML PEN SC SCH ×3 (08:11→17:06)
[2020-07-07] MEDS: INSULIN GLARGINE SOLOSTAR 100 UNITS/ML 3 ML PEN SC SCH (08:11)
[2020-07-07] MEDS ORDERED: ATORVASTATIN 40 MG TAB PO SCH (09:00)
[2020-07-07] MEDS ORDERED: ENOXAPARIN INJ 40 MG/0.4 ML SYR SQ SCH (09:00)
[2020-07-07] MEDS ORDERED: CLOPIDOGREL BISULFATE 75 MG TAB PO SCH (09:00)
[2020-07-07] MEDS ORDERED: ASPIRIN 81 MG ECTAB PO SCH (09:00)
--- NOTE | 2020-07-07 13:03 | Electrocardiogram Report ---
Test Reason : Blood Pressure : / mmHG Vent. Rate : 069 BPM Atrial Rate : 069 BPM P-R Int : 190 ms QRS Dur : 118 ms QT Int : 416 ms P-R-T Axes : 058 -34 046 degrees QTc Int : 445 ms Sinus rhythm with Premature atrial complexes Left axis deviation Left ventricular hypertrophy with QRS widening Cannot rule out Septal infarct , age undetermined Abnormal ECG No previous ECGs available Confirmed by Eugenio Cerda ([id number]) on 07/07/2020 1:03:12 PM Referred By: REFERRED SELF Confirmed By:Eugenio Cerda
--- NOTE | 2020-07-07 13:34 | Consultation Report ---
DATE OF CONSULTATION: 07/07/2020 NEUROLOGY CONSULTATION CHIEF COMPLAINT: Forgetfulness/memory loss. HISTORY OF PRESENT ILLNESS: A 74-year-old male who recently had a thalamic stroke within the past month, presented to the Emergency Department yesterday for increased confusion. He presented with his . The patient states he has not been feeling right, but unsure why. The has noticed that he was missing turns while driving and having trouble getting his words out. He reports no headache, change in vision, chest pain, shortness of breath, nausea, vomiting or diarrhea. No dysuria or frequency. Supposedly, he had similar symptoms at the time of his stroke. The patient was confined to [facility] in 2017 for transient short-term memory problems of note. He is a resident of [place], [place] and recently switched to [facility] for his healthcare. He was admitted to the [facility] 2 months ago for short-term memory problems once again. He was diagnosed to have a thalamic stroke as per . They were told by the neurologist that imaging from 2017 supported stroke findings. The patient was discharged on a new antiplatelet agent as well as a diagnosis of hypertension and insulin-dependent diabetes. Since he was discharged from the hospital, noted slow progression of short-term memory issues. He was brought to the Emergency Department yesterday for further evaluation. There was no arm or leg weakness, no slurred speech or facial weakness. No headache or chest pain. The patient was admitted to the hospitalist service and neurology consultation was placed for evaluation of memory issues. ALLERGIES: No known allergies. HOME MEDICATIONS: Amlodipine 5 mg daily, aspirin 81 mg daily, atorvastatin 80 mg daily, Plavix 75 mg daily, insulin and metformin 500 mg twice daily. PAST MEDICAL HISTORY: Prior history of cerebrovascular accident, hypertension, hyperlipidemia, insulin-dependent type 2 diabetes, past tobacco abuse. PAST SURGICAL HISTORY: Reviewed. No surgical procedures. FAMILY HISTORY: Positive for heart disease. SOCIAL HISTORY: He is a former tobacco user. He drinks alcohol daily. He is retired from [employer]. He lives with his . REVIEW OF SYSTEMS: Ten-point review of systems was performed and negative except as noted above in the HPI. PHYSICAL EXAMINATION: VITAL SIGNS: Blood pressure 153/90, pulse is 67, respiratory rate is 16, temperature is 37.1 degrees Celsius, oxygen saturation is 94% on room air. CONSTITUTIONAL: The patient appears his stated age, in no distress. HEENT: Head and face is normocephalic and atraumatic. Normal lids and normal conjunctivae. NECK: Supple. LUNGS: Normal respiratory effort. HEART: Pulses are normal. ABDOMEN: Nondistended. SKIN: No skin rash. PSYCHIATRIC: Normal mood, normal affect. NEUROLOGIC: He is awake, alert and oriented to person, place. Disoriented to age. Attention is normal. Knowledge is Ok. Comprehension is intact. He is able to repeat. Speech is clear. No visual defect on confrontation. Pupils are symmetric and equal. Extraocular muscles are intact. No nystagmus. Facial sensation intact. No facial asymmetry. Intact hearing. Palate is symmetric. Shoulder shrug intact. Tongue is midline. Gait examination deferred. No ataxia with [id number] testing. Sensation is intact to light touch. Muscle tone is normal. Muscle exam 5/5 throughout. Reflexes, negative Jocelyn sign, toes are downgoing and there is no ankle clonus. DIAGNOSTIC TESTING AND LABORATORY VALUES: WBC 6.26, hemoglobin 14.0, platelet count 201. INR is 1.0. Sodium is 139, potassium 3.9, chloride 107, carbon dioxide 28, BUN is 12, creatinine 0.77, calcium 8.8. AST and ALT are normal. TSH is 0.820. Ammonia is 14.5. Urinalysis was turbid, trace glucose, 5-10 epithelial cells. IMAGING: MRI of the brain showed no acute intracranial abnormality. Age-related involutional change noting mild subcortical and periventricular microangiopathic disease. No hemorrhage or mass effect. No restricted diffusion to suggest acute ischemia. Head and neck CTA focal short segment area of high-grade stenosis involving the P1 segment of the right posterior cerebral artery. There is moderate multifocal luminal narrowing of the posterior cerebral arteries bilaterally. High-grade stenosis involving the V4 segment of the right vertebral artery. Mild luminal narrowing less than 50% involving the petrous portion of the left ICA. There is no aneurysm, dissection, or proximal branch occlusion identified. ASSESSMENT AND PLAN: A 74-year-old male admitted with progressive memory loss and confusion. Per patient has had 3 similar episodes of increased confusion in the past 3 years. Currently disoriented to age and season. Recent MRI brain was reviewed and I am happy to report that there is no evidence of acute ischemic stroke. Recommend to continue dual antiplatelet therapy as well as high-intensity statin. Differential diagnosis certainly includes neurodegenerative condition such as Alzheimer disease versus a vascular dementia. Vascular dementia can present in a stepwise decline. Would recommend obtaining reversible causes of memory loss including a vitamin B12 level, folic acid level. We will also obtain a hemoglobin A1c if not already performed. Given the history of chronic alcohol intake, would obtain a thiamine level as well. The patient will benefit from formal neuropsychological testing as an outpatient. May need to consider a routine EEG as well as an outpatient. Blood pressure goal, systolic blood pressure less than 140, diastolic blood pressure less than 90. Please contact me with any additional questions or concerns. The patient will need to follow up with neurology as an outpatient in 8 weeks. BREA
[2020-07-07 15:48] LABS: Folate (Folic Acid) 15.44 ng/ml (>5.38)
--- NOTE | 2020-07-07 17:01 | Discharge Summary ---
Date of Service July 07, 2020 Admission HPI Per Admitting Provider History obtained from patient, family, and records. Patient is not a reliable historian given memory impairment. Medical history significant for CVA, hypertension, hyperlipidemia, DM 2 insulin requiring, past tobacco abuse. Patient is a resident of [facility] who recently switched to [facility] primary care physician in [facility]. Patient confined at [facility] in 2017 for transient short-term memory problems. As per , patient initially admitted with stroke diagnosis but was told on discharge that symptoms were not from stroke. Patient however newly diagnosed to have hypertension, hyperlipidemia, and DM2 during confinement for which medications were prescribed. Patient/ chose not to comply with because they wanted to try "natural" methods first like herbal medications and weight loss. Patient admitted at [facility] 2 months ago for short-term memory problems again. Patient diagnosed to have a thalamic stroke as per . They were also told by neurologist that imaging from 2017 confinement supported stroke findings. Patient discharged on new antiplatelet, HTN, cholesterol, and insulin medications and has been compliant since. Since discharge from the hospital, patient noted slow progression of short- term memory issues. Patient's was wondering if may have benefited from some therapy for cognitive deficits but she never got to ask question from inpatient and outpatient providers even on follow-up visits thinking that 'they should have recommended that if it was necessary.' Patient brought to the ER for evaluation by this afternoon. No arm or leg weakness. No slurred speech, facial weakness complaints. Patient denies headache, chest pain, S OB, abdominal pain symptoms. Patient compliant with home medications. Medical History as above Surgical History : None Family History : Heart disease Personal/Social history : Past tobacco abuse, daily alcohol intake denies abuse as per , retired [employer] employee Admission Exam Per Admitting Provider GENERAL: Comfortable, pleasant, no respiratory distress SKIN: Normal color, warm HEENT: [place] palpebral conjunctivae, no ptosis, dry buccal mucosa NECK : Supple, no tenderness CHEST : CTA, no tenderness HEART : RRR, systolic murmur ABDOMEN: Some distention, nontender EXTREMITIES : No LE swelling/tenderness, no other conspicuous deformities noted NEUROLOGIC : Coherent, oriented to place, no facial asymmetry, no other gross f ocality Principal Diagnosis Progressive memory loss and confusion, history of CVA Discharge Exam GENERAL: Elderly male, sitting up in bed, in no acute distress HEENT: Normocephalic, EOMI, PEERL, no ptosis NECK : Supple, no tenderness CHEST : CTAB, no wheezing, rhonchi or crackles HEART : RRR, systolic murmur ABDOMEN: Positive bowel sounds, soft, mild distention, nontender to palpation EXTREMITIES : No LE swelling/tenderness, moves extremities spontaneously SKIN: Normal color, warm, dry NEUROLOGIC : Alert and oriented however not able to answer all questions, especially regarding what brought him to the hospital, and refers to his , no facial asymmetry, speech fluent, moves all 4 extremities spontaneously Discharge Data Allergies Allergy/AdvReac Type Severity Reaction Status Date / Time No Known Allergies Allergy Unverified 07/06/20 16:09 Consultations 07/06/20 18:58 ED Decision to Admit Stat 07/06/20 21:38 Consult Case Management - Discharge Planning Routine Consult Neurology Routine 07/06/20 21:49 Consult Health Information Management Routine Ordered Studies 07/06/20 16:03 CT angio head w con Stat CT angio neck with con Stat IMPRESSION: 1. Focal short segment area of high-grade stenosis involves the P1 segment of the right posterior cerebral artery. 2. There is at least moderate multifocal luminal narrowing of the posterior cerebral arteries bilaterally. 3. Short segment high-grade stenosis involves the V4 segment right vertebral artery. 4. Mild luminal narrowing of less than 50% involves the petrous portion left ICA. 5. No aneurysm, dissection or proximal branch occlusion identified. CT head/brain wo con Stat Findings: The paranasal sinuses and mastoid air cells are clear. The calvarium and skull base are intact. The ventricles and sulci are within normal limits. There is no mass, hematoma, midline shift, or acute infarct. Impression: No acute intracranial abnormality. 07/06/20 20:15 MR brain wo con Urgent FINDINGS: Brain parenchyma: There is age-related involutional change noting mild subcortical and periventricular microangiopathic disease. There is no hemorrhage or mass effect. There is no restricted diffusion to suggest acute ischemia. [place] -white matter differentiation is preserved. No extra-axial fluid collection is seen. The cerebellar tonsils are normal in configuration. Ventricles, sulci, and cisterns: Prominent secondary to involutional change. Pituitary and sella: Partially empty sella is incidentally noted. Intracranial vasculature: Normal flow voids are maintained at the skull base. Orbits: The bony orbits are grossly intact. Orbital contents are normal in appearance. Sinuses and mastoids: Clear. Calvarium: Unremarkable. Cervical cord: Partially visualized cervical spinal cord is normal in morphology and signal intensity. IMPRESSION: No acute intracranial abnormality. Diabetes Follow up Diabetes Follow-up Needed for HgbA1c >9% Hospital Course (1) Memory impairment: Gradual progression of cognitive deficits post CVA confinement from 2 months ago. Patient was admitted under observation status, to further evaluate memory impairment and confusion after CVA. Neurology was consulted. Patient and his were counseled on current imaging results. CTA head and neck were obtained as well as MRI of the brain. Patient currently did not have a stroke. However his symptoms may be secondary to underlying progressive dementia, Alzheimer's versus vascular, vitamin deficiencies, alcohol use etc. Admitting physician ordered RPR, and hospitalist further ordered vitamin B12, B1 and folic acid levels as recommended by neurology to evaluate further causes of possible memory impairment. These tests are currently pending. It is also recommended to follow-up with neurology in 2 months as outpatient. Patient may benefit from neuropsychological testing as an outpatient and possibly EEG. Medical records from [facility] were requested. Patient has diabetes mellitus type 2, currently uncontrolled, hemoglobin A1c over 9%. Discussed with the patient that it is strongly recommended to have diabetes under better control, in order to possibly improve his memory impair ment as well. Patient's reports that they are currently actively working with primary care doctor and titrating his insulin regimen. Encouraged the patient and his to continue to do so. Patient also has history of hypertension, hyperlipidemia, and history of tobacco use. He is currently on aspirin and Plavix and atorvastatin 80 mg daily, which we recommend to continue. Recommend blood pressure control, less than goal <140/90. Further follow-up with PCP for above problems. Total Time Total Time Spent Total Time Spent (In Minutes): 40 Total Time Includes: Examination of the Patient, Discharge Planning, Medication Reconciliation and Communication With Other Providers Discharge Plan Discharge Items Patient Disposition: Home - Self-Care Reason For Visit: FORGETFULNESS Discharge Diagnosis: Progressive memory loss and confusion, history of CVA Activity: Per Instructions section Non-emergency contact: Primary Care Provider and Neurologist Call non-emergency contact if: you have any medication questions and your symptoms worsen Follow-up/Referrals: Gera Hanley DO [Primary Care Provider] - 07/08/20 3:40 pm (Date & Time 07/08/2020 3:40 PM Provider Gera Hanley [facility] ) Diet: Carb Consistent or DM2 and Heart Healthy Addtl Attending Provider Instructions: Please follow-up with your primary care doctor, Dr. Hanley, tomorrow, July 08. Several tests were ordered, and results are still pending. This is to evaluate your progressive memory loss. It is also recommended that you follow-up with neurology in 2 months. Your hemoglobin A1c was elevated above 9%, please continue to work with your primary care doctor to get your diabetes under better control. Pending Studies at Discharge: Yes Studies:: RPR, vitamin B12, B1 and folate levels Stand-Alone Forms: [facility], Smoking Cessation Medications and DC Order Prescriptions: Continued metformin 500 mg Tablet 500 mg PO BID RF: 0 atorvastatin 80 mg Tablet 80 mg PO DAILY RF: 0 clopidogrel [Plavix] 75 mg Tablet 75 mg PO DAILY RF: 0 amlodipine 5 mg Tablet 5 mg PO DAILY RF: 0 aspirin [Aspir-81] 81 mg Tablet,Delayed Release (Dr/Ec) 81 mg PO DAILY RF: 0 insulin aspart U-100 [Novolog PenFill U-100 Insulin] 100 unit/mL Cartridge 0 unit SUBCUT TIDM RF: 0 Tresiba FlexTouch U-100 100 unit/mL (3 mL) Insulin Pen 22 unit SUBCUT HS RF: 0 Discharge Orders: Discharge Order (Routine); Ordered 07/07/20 Ordered By: Chuck Huynh Admission Data Admit Date/Time: 07/06/20 20:30 Attending Provider: Chuck Huynh Admit Provider: Roderick Solares Primary Care Provider: Gera Hanley Other Providers: Roderick Solares ; Nanda Wetzel ; Samuel Colby ; Nanda Carpenter ; Jake Maya ; Samuel Parekh
[2020-07-07] MEDS ORDERED: INSULIN GLARGINE SOLOSTAR 100 UNITS/ML 3 ML PEN SC SCH (21:00)
== END 2020-07-07 18:34 | disposition home or self-care (01) ==
LOC: ED 15:52 → 2N 15:52 → SUATTDRO 20:30 → 2N 20:52

== ENCOUNTER 2022-07-25 19:05 | Inpatient (IN) ==
[2022-07-25] MEDS ORDERED: SODIUM CHLORIDE 0.9% 500 ML IV SCH (19:30)
[2022-07-25 19:31] LABS: Basophils # (auto) 0.05 K/uL (0-0.2); Basophils % (auto) 0.6 %; Eosinophils # (auto) 0.24 K/uL (0-0.50); Eosinophils % (auto) 2.7 %; Hematocrit (blood only) 45.4 % (40.1-51.0); Immature Granulocytes # (auto) 0.02 K/uL (0.00-0.02); Immature Granulocytes % (auto) 0.2 %; Lymphocytes # (auto) 2.73 K/uL (1.2-3.4); Lymphocytes % (auto) 31.2 %; Mean Corpuscular Hemoglobin 32.3 pg (25.0-34.0); Mean Corpuscular Hgb Conc 35.2 g/dL (32.0-36.0); Mean Corpuscular Volume 91.7 fL (80.0-100.0); Monocytes # (auto) 0.77 K/uL (0.24-0.82); Monocytes % (auto) 8.8 %; Neutrophils # (auto) 4.95 K/uL (1.4-6.5); Neutrophils % (auto) 56.5 %; Platelet Count 239 K/uL (130-400); RDW Coefficient of Variation 12.6 % (11.5-14.5); RDW Standard Deviation 42.4 fL (36.4-46.3); Red Blood Count 4.95 M/uL (4.63-6.08); White Blood Count 8.76 K/ul (4.8-10.8)
[2022-07-25 19:36] LABS: iSTAT Creatinine 0.9 mg/dl (0.6-1.3); iSTAT Ionized Calcium 1.19 mmol/l (1.12-1.32); iSTAT Potassium 4.2 mmol/L (3.3-5.0)
--- NOTE | 2022-07-25 19:52 | Emergency Department Note ---
History of Present Illness General Chief complaint: Stroke/CVA Symptoms Stated complaint: POSSIBLE MINI STROKE,WEAK, OFF BALANCE, SPEECH Time Seen by Provider: 07/25/22 19:23 History of Present Illness Maximum Pain Intensity: 6 76-year-old male presents to the ED with a chief complaint of generalized weakness. The provides the history. The patient, per the , has been going downhill for 2 months. Over the past couple of weeks it is gotten worse and over the past couple of days it is even worsened. The patient has been to [facility] at least twice recently for similar symptoms. In April he was felt to have a TIA. He was off so there within the past week for similar symptoms of left arm weakness and also at that time nothing specific was found. The patient had an episode tonight where his left arm seemed to be a little weak and the decided to bring him here. The patient does not have any specific complaints at this time. According to the , he did fall last evening in the hallway and he fell again this morning in the bathroom due to his weakness. She states also that he has been sleeping more than usual. He also occasionally feels lightheaded. He has some chronic short-term memory loss. No additional complaints at this time. He denies any headaches, fevers, chest pains or shortness of breath. I did review a neurology note in our system from 2019. It appears as though the patient does have a history of left internal capsule stroke in 2016. He does have some chronic memory issues. He does have history of a diminished left vertebral artery flow. Mild left internal carotid stenosis at the petrous level. Home Medications Medication Instructions Recorded Confirmed Type insulin aspart U-100 100 unit/mL 0 sliding scale dose subcut TIDM 07/06/20 07/25/22 History subcutaneous cartridge (Novolog PenFill U-100 Insulin aspart) insulin degludec 100 unit/mL (3 23 unit subcut HS 07/06/20 07/25/22 History mL) subcutaneous pen (Tresiba FlexTouch U-100 insulin) Other Vits & Minerals Unknown 1 dose PO DAILY 07/25/22 07/25/22 History cholecalciferol (vitamin D3) 25 0 mcg PO DAILY 07/25/22 07/25/22 History mcg (1,000 unit) capsule (Vitamin D3) chromium picolinate 200 mcg tablet 0 mcg PO DAILY 07/25/22 07/25/22 History citalopram 10 mg tablet 5 mg PO DAILY 07/25/22 07/25/22 History coenzyme Q10 100 mg capsule 0 mg PO DAILY 07/25/22 07/25/22 History (CoQ-10) folic acid 800 mcg tablet 0 mg PO DAILY 07/25/22 07/25/22 History magnesium 250 mg tablet 0 mg PO DAILY 07/25/22 07/25/22 History milk thistle 150 mg capsule 0 mg PO DAILY 07/25/22 07/25/22 History potassium gluconate 595 mg (99 mg) 0 mg PO DAILY 07/25/22 07/25/22 History tablet vitamin E 268 mg (400 unit) capsule 0 mg PO DAILY 07/25/22 07/25/22 History zinc gluconate 50 mg tablet 0 mg PO DAILY 07/25/22 07/25/22 History Allergies Allergy/AdvReac Type Severity Reaction Status Date / Time No Known Allergies Allergy Verified 07/25/22 19:37 Past Med/Surg History Social History Smoking Status: Former smoker Hx Alcohol Use: Yes Alcohol type: beer Hx Substance Use: No Preferred Language: Latvian Communication Ability: Effective Veterinarian Helper Required: No Beliefs That Will Affect Care: None Current Living Situation: Spouse Feels Safe at Home: Yes Assistive Devices: None Review of Systems A total of 10 systems reviewed and were otherwise negative Physical Exam Vital Signs Vital Signs - 24 hr 07/25/22 19:08 07/25/22 19:23 07/25/22 19:35 Temperature 36.2 C L Temperature Source Temporal Artery Scan Pulse Rate 84 Pulse Rate [Finger] Respiratory Rate 18 Respiratory Effort / Characteristics Non-Labored Respiratory Depth Normal Respiratory Pattern Blood Pressure 138/91 Blood Pressure [Right Arm] Blood Pressure Mean 106 Blood Pressure Mean [Right Arm] Blood Pressure Position [Right Arm] Pulse Oximetry 92 96 97 Oxygen Delivery Method Room Air Room Air Sepsis Recent Fever Within 48 Hours No Sepsis New/Unexplained Change in Mental Status No Sepsis Action Taken by Nursing No Action Required 07/25/22 19:57 07/25/22 20:29 07/25/22 22:00 Temperature Temperature Source Pulse Rate Pulse Rate [Finger] 64 61 66 Respiratory Rate 16 20 20 Respiratory Effort / Characteristics Non-Labored Spontaneous Non-Labored Spontaneous Respiratory Depth Normal Normal Respiratory Pattern Regular Regular Blood Pressure Blood Pressure [Right Arm] 148/96 H 165/91 H 178/93 H Blood Pressure Mean Blood Pressure Mean [Right Arm] 113 115 121 Blood Pressure Position [Right Arm] Sitting Sitting Pulse Oximetry 95 97 95 Oxygen Delivery Method Room Air Room Air Room Air Sepsis Recent Fever Within 48 Hours Sepsis New/Unexplained Change in Mental Status Sepsis Action Taken by Nursing CONSTITUTIONAL/VITAL SIGNS: Reviewed / noted above. GENERAL: Non-toxic in appearance. INTEGUMENTARY: Warm, dry, and Normal. HEAD: Normocephalic. EYES: without scleral icterus or trauma. ENT/OROPHARYNX: clear and moist. RESPIRATORY: Clear to auscultation bilaterally. No increased work of breathing. CARDIOVASCULAR: Regular rate and rhythm. GI/ABDOMEN: Soft and nontender. No organomegaly or pulsatile mass. EXTREMITIES: Warm and well perfused. NEUROLOGICAL: Intact without focal deficits. Cranial nerves II through XII are intact. Normal cerebellar testing. No pronator drift. Normal strength in all 4 extremities. No sensory deficits. PSYCHIATRIC: normal affect. MUSCULOSKELETAL: Normally developed with good muscle tone. TRIAGE NURSING DOCUMENTATION REVIEWED. Course Administered Medications Discontinued Medications Sodium Chloride (Nss) 500 mls @ 999 mls/hr IV .Q31M PAO Stop: 07/25/22 20:00 Last Infusion: 07/25/22: Dose: 0 mls/hr Documented By: Admin: 07/25/22 19:45 Dose: 999 mls/hr Documented By: KENNY Medical Decision Making Differential Diagnosis Differential includes acute coronary syndrome, myocardial infarction, CVA, TIA, anemia, infection, pneumonia, UTI, pyelonephritis, poor nutrition, dehydration, electrolyte disturbance,hypoglycemia. Medical Records Attestation: I reviewed the patient's medical records. Home Medications Current Medication List: was personally reviewed by me Laboratory Data Attestation: I reviewed the patient's lab results. Result diagrams: 07/25/22 19:19 07/25/22 19:19 Lab Results 07/25/22 07/25/22 07/25/22 Range/Units 19:17 19:19 19:19 WBC 8.76 (4.8-10.8) K/ul RBC 4.95 (4.63-6.08) M/uL Hgb 16.0 (14.0-18.0) g/dl POC Hgb (14.0-18.0) g/dl Hct 45.4 (40.1-51.0) % POC Hct (42-52) % MCV 91.7 (80.0-100.0) fL MCH 32.3 (25.0-34.0) pg MCHC 35.2 (32.0-36.0) g/dL RDW Std Deviation 42.4 (36.4-46.3) fL RDW Coeff of Nikita 12.6 (11.5-14.5) % Plt Count 239 (130-400) K/uL MPV 9.0 L (9.4-12.4) fL Immature Gran % (Auto) 0.2 % Neut % (Auto) 56.5 % Lymph % (Auto) 31.2 % Crane % (Auto) 8.8 % Eos % (Auto) 2.7 % Baso % (Auto) 0.6 % Neut # (Auto) 4.95 (1.4-6.5) K/uL Lymph # (Auto) 2.73 (1.2-3.4) K/uL Crane # (Auto) 0.77 (0.24-0.82) K/uL Eos # (Auto) 0.24 (0-0.50) K/uL Baso # (Auto) 0.05 (0-0.2) K/uL Immature Gran # (Auto) 0.02 (0.00-0.02) K/uL POC Sodium (135-144) mmol/L Sodium 136 (136-145) mmol/L POC Potassium (3.3-5.0) mmol/L Potassium 4.2 (3.5-5.1) mmol/L POC Chloride (101-112) mmol/L Chloride 102 (98-107) mmol/L Carbon Dioxide 24 (21-32) mmol/L POC Total CO2 (24-31) mmol/L Anion Gap 10 (3-11) POC Anion Gap (16-25) mmol/L POC BUN (7-18) mg/dl BUN 15 (6-23) mg/dl Creatinine 0.92 (0.6-1.4) mg/dl POC Creatinine (0.6-1.3) mg/dl Est Cr Clr Drug Dosing 72.7 ml/min Est GFR ( Amer) 94.6 ml/min Est GFR (Non-Af Amer) 81.6 ml/min BUN/Creatinine Ratio 16.3 (10-20) Glucose 174 H (70-99(Fasting)) mg/dl POC Glucose 156 H (70-99) mg/dl POC Glucose (other) (70-99) mg/dl Lactate (0.4-2.0) mmol/L Calcium 9.3 (8.5-10.1) mg/dl POC Ioniz Calcium Dedrick (1.12-1.32) mmol/l Magnesium 2.0 (1.7-2.4) mg/dl Total Bilirubin 0.5 (0.2-1.0) mg/dl AST 14 (13-39) U/L ALT 16 (7-52) U/L Alkaline Phosphatase 51 (34-104) U/L Total Creatine Kinase 25 L (30-223) U/L Troponin I High Sens 5.5 (0-20) pg/ml Total Protein 6.7 (6.0-8.3) gm/dl Albumin 4.3 (3.4-5.0) gm/dl Globulin 2.4 L (2.5-4.0) gm/dl Albumin/Globulin Ratio 1.8 (0.9-2) TSH (0.300-4.500) uIu/ml 07/25/22 07/25/22 07/25/22 Range/Units 19:19 19:24 19:33 WBC (4.8-10.8) K/ul RBC (4.63-6.08) M/uL Hgb (14.0-18.0) g/dl POC Hgb 16.0 (14.0-18.0) g/dl Hct (40.1-51.0) % POC Hct 47 (42-52) % MCV (80.0-100.0) fL MCH (25.0-34.0) pg MCHC (32.0-36.0) g/dL RDW Std Deviation (36.4-46.3) fL RDW Coeff of Nikita (11.5-14.5) % Plt Count (130-400) K/uL MPV (9.4-12.4) fL Immature Gran % (Auto) % Neut % (Auto) % Lymph % (Auto) % Crane % (Auto) % Eos % (Auto) % Baso % (Auto) % Neut # (Auto) (1.4-6.5) K/uL Lymph # (Auto) (1.2-3.4) K/uL Crane # (Auto) (0.24-0.82) K/uL Eos # (Auto) (0-0.50) K/uL Baso # (Auto) (0-0.2) K/uL Immature Gran # (Auto) (0.00-0.02) K/uL POC Sodium 137 (135-144) mmol/L Sodium (136-145) mmol/L POC Potassium 4.2 (3.3-5.0) mmol/L Potassium (3.5-5.1) mmol/L POC Chloride 102 (101-112) mmol/L Chloride (98-107) mmol/L Carbon Dioxide (21-32) mmol/L POC Total CO2 24 (24-31) mmol/L Anion Gap (3-11) POC Anion Gap 16.0 (16-25) mmol/L POC BUN 15 (7-18) mg/dl BUN (6-23) mg/dl Creatinine (0.6-1.4) mg/dl POC Creatinine 0.9 (0.6-1.3) mg/dl Est Cr Clr Drug Dosing ml/min Est GFR ( Amer) ml/min Est GFR (Non-Af Amer) ml/min BUN/Creatinine Ratio (10-20) Glucose (70-99(Fasting)) mg/dl POC Glucose (70-99) mg/dl POC Glucose (other) 169 H (70-99) mg/dl Lactate 1.0 (0.4-2.0) mmol/L Calcium (8.5-10.1) mg/dl POC Ioniz Calcium Dedrick 1.19 (1.12-1.32) mmol/l Magnesium (1.7-2.4) mg/dl Total Bilirubin (0.2-1.0) mg/dl AST (13-39) U/L ALT (7-52) U/L Alkaline Phosphatase (34-104) U/L Total Creatine Kinase (30-223) U/L Troponin I High Sens (0-20) pg/ml Total Protein (6.0-8.3) gm/dl Albumin (3.4-5.0) gm/dl Globulin (2.5-4.0) gm/dl Albumin/Globulin Ratio (0.9-2) TSH 1.015 (0.300-4.500) uIu/ml Imaging Data My Impression: Chest x-ray: Per my interpretation there is no acute disease. No pneumothorax or pneumonia. Radiologist's Impression: Head CT 07/25/22 19:23 CT OF THE HEAD WITHOUT CONTRAST CLINICAL HISTORY: weakness COMPARISON STUDY: MRI of the brain July 06, 2020. Head CT July 06, 2020. TECHNIQUE: Helical axial images of the head were obtained without IV contrast. Automated exposure control was utilized for the study. A dose lowering technique was utilized adhering to the principles of ALARA. FINDINGS: No acute intracranial hemorrhage, midline shift or mass effect is present. White matter hypodensities favor small vessel disease. The majority of these were present on head CT of July 06, 2020. A 9 mm white matter hypodensity within the left frontal lobe on axial image 23 of 32 is new since that exam but probably chronic. The ventricular system is unremarkable. The basal cisterns are patent. No extra-axial collections are present. There are no findings to suggest acute dural sinus thrombosis or acute territorial infarct. No significant calvarial abnormalities are present. Visualized portions of the sinuses and mastoid air cells are clear. IMPRESSION: 1. No acute intracranial findings. 2. 9 mm white matter hypodensity within left frontal lobe which is new since head CT of July 06, 2020 but probably chronic. ACT 112: Negative or not required by law. Electronically signed by: Chevy Tobias M.D. 07/25/2022 8:21 PM Head CTA 07/25/22 19:47 CTA ANGIOGRAPHY OF THE HEAD CLINICAL HISTORY: left arm weakness resolved COMPARISON STUDY: CTA of the head July 06, 2020. TECHNIQUE: Helical axial images of the head were obtained following uneventful intravenous administration of 106 cc of Optiray. Sagittal and coronal reconstructions were viewed as well as maximal intensity projections on an independent 3-D workstation. Automated exposure control was utilized for the study. A dose lowering technique was utilized adhering to the principles of ALARA. CT DOSE: 1156.41 mGy.cm FINDINGS: There is moderate plaque within bilateral cavernous carotids without stenosis. There is severe stenosis of the petrous portion of the left internal carotid artery with 80-90% stenosis which has progressed since CTA of July 06, 2020. The bilateral M1, M2, A1 and A2 segments are patent. There is no intracranial aneurysm. Interval development of occlusion versus trace flow within the intracranial portion of the left vertebral artery is noted. Severe stenosis of the intracranial portion of the right vertebral artery is unchanged. 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 Moderate to severe small multifocal stenoses within the bilateral posterior cerebral arteries are noted. IMPRESSION: 1. Interval development of occlusion versus trace flow within the intracranial portion of the left vertebral artery. 2. Severe multifocal stenoses within the intracranial vessels. Severe stenosis of the petrous portion of the left internal carotid artery has progressed. 3. Severe multifocal stenoses within the posterior circulation, as described above. 4. No abrupt vessel occlusion within the anterior circulation. ACT 112: Negative or not required by law. Electronically signed by: Chevy Tobias M.D. 07/25/2022 8:36 PM Neck CTA 07/25/22 19:47 CT ANGIOGRAPHY OF THE NECK WITH CONTRAST CLINICAL HISTORY: left arm weakness resolved COMPARISON STUDY: CTA of the neck July 06, 2020. Technique: CT angiography of the carotid and vertebral arteries was obtained using Optiray and 3D reconstruction on an independent workstation. NASCET criteria was utilized. Automated exposure control was utilized for the study. A dose lowering technique was utilized adhering to the principles of ALARA. Findings: Visualized portions of the lung apices are unremarkable. There is no acute cervical spine fracture. The right vertebral artery is dominant and patent within the neck. Severe stenosis of the cervical portion of the right vertebral artery is noted. This is similar to CTA of July 06, 2020. The CTA of the head will be reported separately. The left vertebral artery is diminutive. Caliber of the left vertebral artery has slightly decreased since prior exam. There has been interval development of occlusion versus trace flow within the cervical portion of the left vertebral artery. There is mild plaque within the proximal right internal carotid artery without stenosis. There is moderate plaq ue within the proximal left internal carotid artery without stenosis. There is severe stenosis of the petrous portion of the left internal carotid artery shown on axial image 337 of 383. This is progressed since prior exam. 80-90% stenosis is present. IMPRESSION: 1. Progression of severe stenosis of the petrous portion of the left internal carotid artery with 80-90% stenosis. 2. Interval development of occlusion versus trace flow within the intracranial portion of the left vertebral artery. 3. Multifocal stenoses of the intracranial vessels which are better depicted on the CTA of the head. Please see that report for further description. 4. Plaque within the proximal bilateral internal carotid arteries without associated stenosis. ACT 112: Negative or not required by law. Electronically signed by: Chevy Tobias M.D. 07/25/2022 8:33 PM ECG Data Attestation: I personally reviewed and interpreted this ECG as follows: Additional Comments: Twelve-lead EKG: Per my interpretation shows a sinus rhythm at a rate of 70 with a PAC. No ST elevation. No PVCs. Normal QTC. MDM Narrative 76-year-old male presents with some generalized weakness which seems to be a steady decline over the last couple of months, according to the . He has been seen at [facility] at least twice for strokelike symptoms and nothing has been found. The patient today had an episode where his left arm seem to be a little weak when they left the house entire room. His exam today was normal. He has no focal deficits on my exam. Vital signs are normal. Despite the patient having had mini strokes, the patient is not taking any preventative med ications such as aspirin or Plavix. CBC and chemistry panel was unremarkable. Glucose is 169. EKG shows a sinus rhythm. CT scan of the head and angiograms of the head and neck were performed. There appears to be some worsening of some of the vascular disease that was previously seen as detailed above. Chest x-ray did not show acute process. Because the patient symptoms, he he will be seen by the hospitalist for further evaluation and care. Impression & Plan TIA (transient ischemic attack) Discharge Plan Visit Data Chief Complaint: Stroke/CVA Symptoms Stated Complaint: POSSIBLE MINI STROKE,WEAK, OFF BALANCE, SPEECH ED Provider: Herrera Isaac Discharge Problem: TIA (transient ischemic attack) Patient Disposition: Being Evaluated by Hospitalist Forms Stand Alone Forms: My [facility] [employer] Prescriptions Prescriptions: No Action insulin aspart U-100 [Novolog PenFill U-100 Insulin] 100 unit/mL Cartridge 0 sliding scale dose SUBCUT TIDM Rx Instructions: per carb count Tresiba FlexTouch U-100 100 unit/mL (3 mL) Insulin Pen 23 unit SUBCUT HS citalopram 10 mg tablet 5 mg PO DAILY milk thistle 150 mg Capsule 0 mg PO DAILY Rx Instructions: UNSURE OF STRENGTH chromium picolinate 200 mcg Tablet 0 mcg PO DAILY Rx Instructions: UNSURE OF STRENGTH zinc gluconate 50 mg Tablet 0 mg PO DAILY Rx Instructions: UNSURE OF STRENGTH magnesium 250 mg Tablet 0 mg PO DAILY Rx Instructions: UNSURE OF STRENGTH vitamin E 268 mg (400 unit) Capsule 0 mg PO DAILY Rx Instructions: UNSURE OF STRENGTH folic acid 800 mcg Tablet 0 mg PO DAILY Rx Instructions: UNSURE OF STRENGTH cholecalciferol (vitamin D3) [Vitamin D3] 25 mcg (1,000 unit) Capsule 0 mcg PO DAILY Rx Instructions: UNSURE OF STRENGTH coenzyme Q10 [CoQ-10] 100 mg Capsule 0 mg PO DAILY Rx Instructions: UNSURE OF STRENGTH potassium gluconate 595 mg (99 mg) Tablet 0 mg PO DAILY Rx Instructions: UNSURE OF STRENGTH Other Vits & Minerals Unknown 1 dose PO DAILY Rx Instructions: PER PT'S "CAN'T REMEMBER ALL OF THE VITAMINS & MINERALS THAT I GIVE HIM", Referrals Referrals: Gera Hanley DO [Primary Care Provider] -
[2022-07-25 20:19] LABS: Troponin I High Sensitivity 5.5 pg/ml (0-20)
--- NOTE | 2022-07-25 20:24 | CT Scan Report ---
CT OF THE HEAD WITHOUT CONTRAST CLINICAL HISTORY: weakness COMPARISON STUDY: MRI of the brain July 06, 2020. Head CT July 06, 2020. TECHNIQUE: Helical axial images of the head were obtained without IV contrast. Automated exposure con trol was utilized for the study. A dose lowering technique was utilized adhering to the principles o f ALARA. FINDINGS: No acute intracranial hemorrhage, midline shift or mass effect is present. White matter hyp odensities favor small vessel disease. The majority of these were present on head CT of July 06, 2020. A 9 mm white matter hypodensity within the left frontal lobe on axial image 23 of 32 is new si nce that exam but probably chronic. The ventricular system is unremarkable. The basal cisterns are pa tent. No extra-axial collections are present. There are no findings to suggest acute dural sinus thro mbosis or acute territorial infarct. No significant calvarial abnormalities are present. Visualized p ortions of the sinuses and mastoid air cells are clear. IMPRESSION: 1. No acute intracranial findings. 2. 9 mm white matter hypodensity within left frontal lobe which is new since head CT of July 06, 2020 but probably chronic. ACT 112: Negative or not required by law. Electronically signed by: Chevy Tobias M.D. 07/25/2022 8:21 PM
[2022-07-25 20:31] LABS: Albumin Globulin Ratio 1.8 (0.9-2); Albumin Level 4.3 gm/dl (3.4-5.0); BUN Creatinine Ratio 16.3 (10-20); Bilirubin,Total 0.5 mg/dl (0.2-1.0); Calcium 9.3 mg/dl (8.5-10.1); Creatinine Clr Calc Pharmacy 72.7 ml/min; Est GFR (African American) 94.6 ml/min; Est GFR (Non-African American) 81.6 ml/min; Globulin 2.4 gm/dl (2.5-4.0); Potassium 4.2 mmol/L (3.5-5.1); Total Protein 6.7 gm/dl (6.0-8.3)
--- NOTE | 2022-07-25 20:35 | CT Scan Report ---
CT ANGIOGRAPHY OF THE NECK WITH CONTRAST CLINICAL HISTORY: left arm weakness resolved COMPARISON STUDY: CTA of the neck July 06, 2020. Technique: CT angiography of the carotid and vertebral arteries was obtained using Optiray and 3D rec onstruction on an independent workstation. NASCET criteria was utilized. Automated exposure control was utilized for the study. A dose lowering technique was utilized adhering to the principles of ALA RA. Findings: Visualized portions of the lung apices are unremarkable. There is no acute cervical spine f racture. The right vertebral artery is dominant and patent within the neck. Severe stenosis of the ce rvical portion of the right vertebral artery is noted. This is similar to CTA of July 06, 2020. The CTA of the head will be reported separately. The left vertebral artery is diminutive. Caliber of the left vertebral artery has slightly decreased since prior exam. There has been interval developmen t of occlusion versus trace flow within the cervical portion of the left vertebral artery. There is m ild plaque within the proximal right internal carotid artery without stenosis. There is moderate plaq ue within the proximal left internal carotid artery without stenosis. There is severe stenosis of the petrous portion of the left internal carotid artery shown on axial image 337 of 383. This is progres sed since prior exam. 80-90% stenosis is present. IMPRESSION: 1. Progression of severe stenosis of the petrous portion of the left internal carotid artery with 80- 90% stenosis. 2. Interval development of occlusion versus trace flow within the intracranial portion of the left ve rtebral artery. 3. Multifocal stenoses of the intracranial vessels which are better depicted on the CTA of the head. Please see that report for further description. 4. Plaque within the proximal bilateral internal carotid arteries without associated stenosis. ACT 112: Negative or not required by law. Electronically signed by: Chevy Tobias M.D. 07/25/2022 8:33 PM
--- NOTE | 2022-07-25 20:39 | CT Scan Report ---
CTA ANGIOGRAPHY OF THE HEAD CLINICAL HISTORY: left arm weakness resolved COMPARISON STUDY: CTA of the head July 06, 2020. TECHNIQUE: Helical axial images of the head were obtained following uneventful intravenous administr ation of 106 cc of Optiray. Sagittal and coronal reconstructions were viewed as well as maximal inten sity projections on an independent 3-D workstation. Automated exposure control was utilized for the study. A dose lowering technique was utilized adhering to the principles of ALARA. CT DOSE: 1156.41 mGy.cm FINDINGS: There is moderate plaque within bilateral cavernous carotids without stenosis. There is sev ere stenosis of the petrous portion of the left internal carotid artery with 80-90% stenosis which nagy s progressed since CTA of July 06, 2020. The bilateral M1, M2, A1 and A2 segments are patent. Th ere is no intracranial aneurysm. Interval development of occlusion versus trace flow within the intra cranial portion of the left vertebral artery is noted. Severe stenosis of the intracranial portion of the right vertebral artery is unchanged. 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 Moderate to severe small multifocal stenoses within the bilateral posterior cereb ral arteries are noted. IMPRESSION: 1. Interval development of occlusion versus trace flow within the intracranial portion of the left ve rtebral artery. 2. Severe multifocal stenoses within the intracranial vessels. Severe stenosis of the petrous portion of the left internal carotid artery has progressed. 3. Severe multifocal stenoses within the posterior circulation, as described above. 4. No abrupt vessel occlusion within the anterior circulation. ACT 112: Negative or not required by law. Electronically signed by: Chevy Tobias M.D. 07/25/2022 8:36 PM
[2022-07-25] MEDS ORDERED: ASPIRIN CHEW 324 MG PO STA (22:45)
[2022-07-26 00:14] LABS: Appearance Urine Clear (Clear); Bilirubin Urine Negative (Negative); Blood Urine Negative (Negative); Color Urine Yellow; Glucose Urine UA Negative (Negative); Ketones Urine Trace (Negative); Leukocyte Esterase Urine Negative (Negative); Nitrite Urine Negative (Negative); Protein Urine Negative (Negative); Specific Gravity Urine > 1.045 (1.000-1.030); Urobilinogen Urine Negative (Negative)
[2022-07-26] MEDS ORDERED: hydrALAZINE HCL 20 MG/ML VIAL IV PRN (00:52)
[2022-07-26] MEDS ORDERED: ACETAMINOPHEN 325 MG TAB PO PRN (00:52)
[2022-07-26] MEDS ORDERED: NITROGLYCERIN SL 0.4 MG/TAB TAB SL PRN (00:52)
[2022-07-26] MEDS ORDERED: POLYETHYLENE (MIRALAX) 17 GM PACK PO PRN (00:52)
[2022-07-26] MEDS ORDERED: SODIUM CHLORIDE 0.9% 1000ML 1,000 ML IV SCH (00:52)
[2022-07-26] MEDS ORDERED: PHARMACIST DISCHARGE MED REC CONSULT PRN (00:52)
[2022-07-26] MEDS ORDERED: GADOBUTROL 65ML VIAL IV ONE (02:12)
--- NOTE | 2022-07-26 02:20 | History and Physical Report ---
DATE OF ADMISSION: 07/25/2022. CHIEF COMPLAINT: Stroke-like symptoms. HISTORY OF PRESENT ILLNESS: This is a 76-year-old male with past medical history significant for CVA, TIAs, hypertension, hyperlipidemia, diabetes, insulin requiring, past tobacco abuse, who presents from [place], [place], because of stroke-like symptoms and also frequent falls. As per the , the patient is getting progressively weaker. He fell yesterday in the hallway and today in the bathroom. He did not hit his head, no loss of consciousness. After the evening nap around 6:00 p.m. when he woke up, he had numbness in his right arm and hand and he could not hold a spoon. When she drove him to the hospital, by the time she came from [place] to the hospital, the symptoms resolved. Initially, stroke alert was called. His CT head showed no acute findings. CTA of the head and neck had some occlusion, that seemed to be chronic. The patient was in the [facility] a couple of times for similar kind of numbness in the hand and he also had history of stroke in 2017. says generally whenever his symptoms started, she wanted to come to the hospital quickly because of history of stroke. The patient is no longer on aspirin or cholesterol medication. As per the , the patient is on holistic medicines and on supplements and he is taking insulin for diabetes and she is checking his blood pressure and it is running okay, so they are not taking any blood pressure medications. His blood pressure was somewhat high in the ER and attributes it to the events today. The patient is alert and awake. He is having some short-term memory issues. Denies any headache. No double visions, no earache, no runny nose, no sore throat, no cough, no difficulty swallowing. Appetite is okay. No chest pain, no shortness of breath, no nausea, no abdominal pain. Normal bowel and bladder movements. ALLERGIES: No known drug allergies. PAST MEDICAL HISTORY: As mentioned above. PAST SURGICAL HISTORY: None, as per records. Could not access the [employer] EMR today. FAMILY HISTORY: Significant for heart disease. SOCIAL HISTORY: Past tobacco abuse, no alcohol use. MEDICATIONS: Seems to be on vitamin D, citalopram 5 mg p.o. daily, insulin sliding scale, Tresiba FlexTouch 23 units subcutaneous at bedtime. REVIEW OF SYSTEMS: As per HPI. Rest of the review of systems is negative. PHYSICAL EXAMINATION: GENERAL: The patient is of moderate build, not in acute distress. VITAL SIGNS: Temperature 36.2, pulse 66, respiratory rate 20, blood pressure 178/93, oxygen 95% on room air. HEENT: Pupils equal, round, and reactive to light. Extraocular muscles intact. Oral mucosa moist. No facial droop. NECK: No JVD, no neck masses. CARDIOVASCULAR: S1 and S2 heard. Regular rate and rhythm. No murmur, no gallop. RESPIRATORY SYSTEM: Normal AP diameter. No accessory muscle use. No wheezing, no crackles. ABDOMEN: Soft, bowel sounds present, nontender, no distention. CENTRAL NERVOUS SYSTEM: Alert and oriented. No facial droop. Speech is clear. Power 5/5 in all extremities. Coordination of movements normal. No pronator drift. Sensation is intact. Position sense intact. EXTREMITIES: No edema, no erythema. LABORATORY DATA: WBC 8.7, hemoglobin 16, hematocrit 45.4, platelets 239. Sodium 136, potassium 4.2, chloride 102, CO2 of 24, BUN 15, creatinine 0.9, Serum glucose 174. Lactate 1, calcium 9.3, magnesium 2, total bilirubin 0.5, AST 14, ALT 16, alkaline phosphatase 51, total creatine kinase is 25. TSH is 1.015. Urinalysis negative. SARS-CoV-2 rapid test negative. IMAGING DATA: CTA of the neck, . Progression of severe stenosis of the petrous portion of the left internal carotid artery with 80-90% stenosis. 2. Interval development of occlusion versus trace flow within the intracranial portion of the left vertebral artery. 3. Multifocal stenoses of the intracranial vessels which are better depicted on the CTA of the head. Please see that report for further description. 4. Plaque within the proximal bilateral internal carotid arteries without associated stenosis. CTA of the head, 1. Interval development of occlusion versus trace flow within the intracranial portion of the left vertebral artery. 2. Severe multifocal stenoses within the intracranial vessels. Severe stenosis of the petrous portion of the left internal carotid artery has progressed. 3. Severe multifocal stenoses within the posterior circulation, as described above. 4. No abrupt vessel occlusion within the anterior circulation. CT head without contrast 1. No acute intracranial findings. 2. 9 mm white matter hypodensity within left frontal lobe which is new since head CT of July 06, 2020 but probably chronic. Chest x-ray, no acute findings. EKG: Sinus rhythm with PACs at a rate of 70, left axis deviation, no acute ST changes seen. ASSESSMENT AND PLAN: This 76-year-old male presents with stroke-like symptoms. 1. Stroke-like symptoms: Possible transient ischemic attack. History of cerebrovascular accident in the past, not taking aspirin, statin, and on holistic medications. Not on hypertensive medications. Will allow permissive hypertension, placed on IV hydralazine p.r.n. Started on aspirin and statin. Follow the lipid profile, HbA1c levels. Follow MRI scan. Speech evaluation, PT, OT evaluation and neuro consult in a.m. for further recommendations. Also consider vascular consult for his findings of the CTA. 2. Diabetes: Continue his home medications. Placed on sliding scale. Follow HbA1c levels. 3. Hypertension: Will monitor the blood pressure. Currently, placed on IV hydralazine p.r.n. 4. Deep venous thrombosis prophylaxis: Sequential compression devices for now. DISPOSITION: Closely monitor in the tele floor. Level 1 full code. Expect to discharge home and follow with family doctor. Job ID: [id number] [email or web address]
[2022-07-26 06:10] LABS: Basophils # (auto) 0.04 K/uL (0-0.2); Basophils % (auto) 0.5 %; Eosinophils # (auto) 0.14 K/uL (0-0.50); Eosinophils % (auto) 1.7 %; Hematocrit (blood only) 41.6 % (40.1-51.0); Hemoglobin 14.8 g/dl (14.0-18.0); Immature Granulocytes # (auto) 0.02 K/uL (0.00-0.02); Immature Granulocytes % (auto) 0.2 %; Lymphocytes # (auto) 2.23 K/uL (1.2-3.4); Lymphocytes % (auto) 27.8 %; Mean Corpuscular Hemoglobin 32.1 pg (25.0-34.0); Mean Corpuscular Hgb Conc 35.6 g/dL (32.0-36.0); Mean Corpuscular Volume 90.2 fL (80.0-100.0); Mean Platelet Volume 9.2 fL (9.4-12.4); Monocytes # (auto) 0.84 K/uL (0.24-0.82); Monocytes % (auto) 10.5 %; Neutrophils # (auto) 4.76 K/uL (1.4-6.5); Neutrophils % (auto) 59.3 %; Platelet Count 218 K/uL (130-400); RDW Coefficient of Variation 12.6 % (11.5-14.5); RDW Standard Deviation 41.5 fL (36.4-46.3); Red Blood Count 4.61 M/uL (4.63-6.08); White Blood Count 8.03 K/ul (4.8-10.8)
[2022-07-26 06:41] LABS: BUN Creatinine Ratio 15.2 (10-20); Chol HDL Ratio 6.4 (0-5); Creatinine Clr Calc Pharmacy 84.7 ml/min; Est GFR (African American) 102.5 ml/min; Est GFR (Non-African American) 88.5 ml/min; Potassium 3.8 mmol/L (3.5-5.1)
[2022-07-26 07:29] LABS: Estimated Average Glucose 171 mg/dl; Hemoglobin A1C 7.6 % (4.5-5.6)
[2022-07-26] MEDS: INSULIN ASPART PER UNIT SC SCH ×4 (08:32→19:48)
[2022-07-26] MEDS: FOLIC ACID 400 MCG TAB PO SCH (08:32)
[2022-07-26] MEDS: ASPIRIN 81 MG ECTAB PO SCH (08:32)
[2022-07-26] MEDS: CITALOPRAM 20 MG TAB PO SCH (08:32)
--- NOTE | 2022-07-26 08:37 | Magnetic Resonance Report ---
MR brain wo/w con HISTORY: 76 years-old Male stroke like symptoms, acute strokelike symptoms. COMPARISON: Head CT 07/25/2022, brain MRI 07/06/2020, CTA head 07/06/2020. TECHNIQUE: Multiplanar and multisequence MRI of the brain was obtained both with and without the use of 8.5 cc Gadavist. FINDINGS: There are at least 12 foci of restricted diffusion involving the watershed distribution of the centru m semiovale within the left frontal and parietal lobes measuring up to 8-9 mm with slightly decreased signal on ADC map. A few punctate foci are also present within the left occipital lobe. There is a s melody focus within the superior right frontal lobe, image 21 series 5. These foci demonstrate mildly increased T2/FLAIR signal. Midline structures are unremarkable. Partially empty sella. Degenerative c hanges of the imaged cervical spine. No acute intracranial hemorrhage, midline shift, abnormal extraaxial collection, hydrocephalus or int racranial mass. Study is mildly motion degraded. No pathologic blooming artifact on the T2-star serie s. Involutional changes with moderate to extensive T2/FLAIR hyperintense foci throughout the white ma tter. Unchanged left frontal lobe focus of enhancement on image 19 series 10 suggestive of a developm ental venous anomaly. There is otherwise no abnormal enhancement identified. Cerebral venous sinuses and major arterial flow voids appear patent. The skull, orbits and soft tissu es are unremarkable. Mastoid air cells and paranasal sinuses are clear. IMPRESSION: 1. Several subcentimeter acute to subacute appearing infarcts are present within the centrum semioval e watershed distribution of the left frontal and parietal lobes. A few additional tiny foci are also present within the left occipital lobe with a single focus within the superior aspect of the right fr ontal lobe. 2. Unchanged vascular focus of enhancement within the superior left frontal lobe which may represent a developmental venous anomaly. 3. Involutional changes with chronic microvascular ischemic disease. ACT 112: Negative or not required by law. The above report was generated using voice recognition software. It may contain grammatical, syntax o r spelling errors. Dictated: 07/26/2022 7:21 AM Transcribed: 07/26/2022 7:49 AM Lanny [id number] [email or web address] Electronically signed by: Luis Borja M.D. 07/26/2022 8:36 AM
--- NOTE | 2022-07-26 08:42 | Electrocardiogram Report ---
Test Reason : Blood Pressure : / mmHG Vent. Rate : 070 BPM Atrial Rate : 070 BPM P-R Int : 176 ms QRS Dur : 104 ms QT Int : 396 ms P-R-T Axes : 038 -44 093 degrees QTc Int : 427 ms Sinus rhythm with Premature atrial complexes Left axis deviation Moderate voltage criteria for LVH, may be normal variant Abnormal ECG When compared with ECG of 06-JUL-2020 16:12, Minimal criteria for Septal infarct are no longer Present Confirmed by Antonio King ([id number]) on 07/26/2022 8:41:50 AM Referred By: REFERRED SELF Confirmed By:Bandar King
[2022-07-26] MEDS ORDERED: ATORVASTATIN 40 MG TAB PO SCH (09:00)
--- NOTE | 2022-07-26 09:12 | XRay Report ---
XR chest 1V portable HISTORY: 76 years-old Male weakness acute weakness COMPARISON: Chest radiograph 07/06/2020 TECHNIQUE: AP view of the chest FINDINGS: Cardiac silhouette is enlarged. No pneumothorax, pleural effusion, airspace consolidation or overt pu lmonary edema. Degenerative changes of the shoulders and spine. IMPRESSION: No acute process. ACT 112: Negative or not required by law. The above report was generated using voice recognition software. It may contain grammatical, syntax o r spelling errors. Electronically signed by: Luis Borja M.D. 07/26/2022 9:11 AM
[2022-07-26] MEDS ORDERED: CLOPIDOGREL BISULFATE 75 MG TAB PO ONE (12:45)
--- NOTE | 2022-07-26 14:27 | Neurology Consultation ---
Date of Consultation July 26, 2022 Assessment & Plan (1) Stroke: (2) Carotid stenosis, symptomatic, with infarction: (3) Vertebral artery occlusion: (4) Vascular dementia: Plan 76-year-old male with a history of recurrent stroke, probable vascular dementia, presenting with subacute decline, worsening confusion, weakness, difficulty with balance, has a mild right hemiparesis, disorientation, and memory impairment, found to have multifocal ischemic stroke within the left cerebral hemisphere consistent with a watershed distribution infarct, but also with a single ischemic focus within the superior aspect of the right frontal lobe. Patient has a severe stenosis of the petrous left internal carotid artery, approximately 80 to 90% identified on CT angiography. He also has a complete, or near complete, occlusion of the left vertebral artery. Stroke risk factors for this patient include poorly controlled dyslipidemia, does not appear to be on a statin, insulin-dependent diabetes mellitus, and hypertension. He does not appear to be on an antihypertensive either. He is a former tobacco user. I agree with starting daily low-dose aspirin and clopidogrel in this patient at this time. I also agree with starting atorvastatin. Consider 80 mg/day. Would recommend permissive hypertension for the time being. Systolic blood pressure goal 140 to 160 mmHg. I believe the severe petrous left internal carotid artery stenosis is symptomatic. He may be an appropriate candidate for endovascular treatment. Case discussed with attending hospitalist, Dr. Shea. May be appropriate for transfer to a tertiary center, he will discuss with neurovascular specialist at [facility] or [facility] to potentially arrange transfer. Otherwise, would need semiurgent outpatient follow-up for this issue. Endovascular treatment is not typically recommended for vertebral artery stenosis, and certainly not for complete occlusions. Medical management consisting of statins and antiplatelet medication considered mainstay. Would also consider obtaining either 14 or 30-day mobile cardiac outpatient telemetry. I would not prescribe any specific medication for patient's dementia at this time. He does appear to have a vascular dementia, although difficult to fully assess in the context of his current acute dominant hemispheric stroke. History of Present Illness Reason for Consultation: stroke Requesting Physician: Dr. Neal Attending Physician: Liv Shea MD History of Present Illness The patient is a 76-year-old male with a history of recurrent stroke and associated progressive decline in memory/cognitive functioning. He has followed with [facility] neurology. He presented to the emergency department yesterday for strokelike symptoms, notable decline in functioning over the previous 2 months, additional episodes of weakness. The patient is a somewhat unreliable historian, he is confused, and has difficulty relating specific details pertaining to his history of present illness. His was present at bedside who corroborated the above information. He does not specifically complain of weakness affecting either the left or right side at this point in time. He denies headache or vision disturbance. Past medical history is notable for stroke, TIA, hypertension, hyperlipidemia, insulin-dependent diabetes mellitus, previous tobacco use. He has been moderately to significantly hypertensive in the context of this hospitalization, blood pressure 140/96 at the time of presentation, up to 208/99 overnight, improved today, 160/95. His blood glucose was 169 at the time of presentation. A CT of the head was negative for hemorrhage. There was a 9 mm hypodensity within the left frontal lobe, new compared with the previous head CT done in June 2020, but likely chronic. A CTA of the head revealed interval development of occlusion versus trace flow within the intracranial portion of the left vertebral artery. Severe multifocal stenoses within the intracranial vessels. Severe stenosis of the petrous portion of the left internal carotid artery, progressive compared with previous angiogram. Severe multifocal stenoses within the posterior circulation. No abrupt vessel occlusion within the anterior circulation. A CTA of the neck revealed progression of severe stenosis of the petrous portion of the left internal carotid artery with 80 to 90% stenosis. Interval development of o cclusion versus trace flow within the intracranial portion of the left vertebral artery. Multifocal stenoses of the intracranial vessels which are better depicted on CTA of the head. Plaque within the proximal bilateral internal carotid arteries without significant stenosis. MRI of the brain revealed several subcentimeter acute to subacute appearing infarcts present within the centrum semiovale watershed distribution of the left frontal and parietal lobes. A few additional tiny foci also present within the left occipital lobe with a single focus within the superior aspect of the right frontal lobe. Unchanged vascular focus of enhancement within the superior left frontal lobe which may represent a developmental venous anomaly. Involutional changes with chronic microvascular ischemic disease. I independently reviewed these images as well as the radiology reports and was able to identify the above findings as described by the interpreting radiologist. Allergies Allergy/AdvReac Type Severity Reaction Status Date / Time No Known Allergies Allergy Verified 07/25/22 19:37 Home Medications Medication Instructions Recorded Confirmed Type insulin aspart U-100 100 unit/mL 0 sliding scale dose subcut TIDM 07/06/20 07/25/22 History subcutaneous cartridge (Novolog PenFill U-100 Insulin aspart) insulin degludec 100 unit/mL (3 23 unit subcut HS 07/06/20 07/25/22 History mL) subcutaneous pen (Tresiba FlexTouch U-100 insulin) Other Vits & Minerals Unknown 1 dose PO DAILY 07/25/22 07/25/22 History cholecalciferol (vitamin D3) 25 0 mcg PO DAILY 07/25/22 07/25/22 History mcg (1,000 unit) capsule (Vitamin D3) chromium picolinate 200 mcg tablet 0 mcg PO DAILY 07/25/22 07/25/22 History citalopram 10 mg tablet 5 mg PO DAILY 07/25/22 07/25/22 History coenzyme Q10 100 mg capsule 0 mg PO DAILY 07/25/22 07/25/22 History (CoQ-10) folic acid 800 mcg tablet 0 mg PO DAILY 07/25/22 07/25/22 History magnesium 250 mg tablet 0 mg PO DAILY 07/25/22 07/25/22 History milk thistle 150 mg capsule 0 mg PO DAILY 07/25/22 07/25/22 History potassium gluconate 595 mg (99 mg) 0 mg PO DAILY 07/25/22 07/25/22 History tablet vitamin E 268 mg (400 unit) capsule 0 mg PO DAILY 07/25/22 07/25/22 History zinc gluconate 50 mg tablet 0 mg PO DAILY 07/25/22 07/25/22 History Patient History Social History Smoking Status: Former smoker Hx Alcohol Use: Yes Alcohol type: beer Hx Substance Use: No Preferred Language: Mongolian Communication Ability: Effective Wool Fleece Sorter Required: No Beliefs That Will Affect Care: None Current Living Situation: Spouse Feels Safe at Home: Yes Safety Concerns: Feels Safe At This Time Assistive Devices: None Review of Systems Constitutional: no fever and no chills Eyes: no blind spots and no diplopia Ear, Nose, Mouth, Throat: no hearing loss Respiratory: no cough and no dyspnea Cardiovascular: no chest pain and no palpitations Gastrointestinal: no nausea and no vomiting Genitourinary: no dysuria Musculoskeletal: no back pain, no neck pain and no myalgia Integumentary: no rash and no lesions Neurologic: as per Subjective / HPI; no headache(s) Psychiatric: no depression and no anxiety Hematologic / Lymphatic: no easy bleeding and no easy bruising Exam (Neuro) Constitutional: well developed and well nourished; no acute distress Eyes: normal visual giraldo by confrontation, PERRL, normal accommodation and EOM intact bilaterally; no fundoscopic abnormality, no nystagmus and no papilledema Cardiovascular: Vessels: + carotid bruit (left) and normal carotid upstroke Neurologic: Oriented to:: Person; negative Place or Time Memory: Short Term Intact and Remote Intact Attention: Span Intact; negative Concentration Intact Language: Repeating Phrases; negative Naming Objects (mild difficulty) Speech Fluency: negative Dysarthria Speech Aphasia: Aphasia (mild) Fund of Knowledge: Past History and Vocabulary; negative Current Events Cranial Nerves: Normal II (Visual giraldo full to confrontation, visual acuity normal), III, IV, (Pupils equal round reactive to light and accommodation, eye movements normal), V (Facial sensation intact), VII (There is no facial droop or weakness), VIII (Hearing intact), IX, X (Palate elevates to midline), XI (Shoulder shrug intact) and XII (Tongue protrudes to midline) Motor Strength: Normal Lower Extremities and Hemiparesis (mild, right); negative Normal Upper Extremities or Pronator Drift Motor Tone: Normal Lower Extremities and Normal Upper Extremities Muscle Bulk/Involuntary Movements: No Involuntary Movements; negative Muscle Atrophy Sensation: Light Touch Intact, Pain/Temperature Intact, Vibration Intact and Proprioception Intact Coordination: Normal and Finger-Nose Abnormal Laterality: Right; negative Heel- Harmon Abnormal Deep Tendon Reflexes: Rt Triceps: 2+, Lt Triceps: 2+, Rt Biceps: 2+, Lt Biceps: 2+, Rt Brachioradialis: 2+, Lt Brachioradialis: 2+, Rt Patellar: 2+, Lt Patellar: 3+, Rt Ankle: 2+ and Lt Ankle: 2+ Special Tests: negative Babinski Present Details: Gait cannot be tested in the context of patient's current neurological status. Patient initially claimed that he lives in [place]. Although according to his spouse, he has been living in the [place] area for the past 9 years. Exhibited 0 out of 3 correct with delayed recall testing. He was unable to spe ll world backwards. He had mild difficulty with object naming. Speech was otherwise fluent. He exhibited mild left right confusion. He had difficulty following multistep commands as well. Results & Data ([facility]) Vital Signs (Past 12 Hours) Vital Signs Temp Pulse Pulse Resp BP Pulse Ox O2 Del Method 07/26/22 12:41 36.4 C L 75 18 160/95 H 93 07/26/22 08:33 36.6 C 80 18 158/91 H 94 Room Air 07/26/22 05:16 77 07/26/22 04:47 69 169/91 H 07/26/22 03:29 192/109 H 07/26/22 03:27 36.6 C 75 20 208/99 H 94 Room Air Laboratory Results WBC 8.03, hemoglobin 14.8, hematocrit 41.6, MCV 90.2, platelet count 218, sodium 137, potassium 3.8, BUN 12, creatinine 0.79, glucose 153, hemoglobin A1c 7.6, calcium 9.0, AST 14, ALT 16, triglycerides 171, cholesterol 261, LDL 186, VLDL 34, HDL 41, TSH 1.015, SARS-CoV-[address] of the head including CT angiography of the head and neck and brain MRI are as described in the history of present illness. I independently reviewed the images well as the radiology reports. An echocardiogram reveals normal left ventricular chamber size, mild concentric LVH, normal LV systolic function, EF 60 to 65%, no segmental left ventricular wall motion abnormalities, grade 1 diastolic dysfunction, interatrial septum intact without evidence of ASD. No shunt with injection of contrast. Left atrial size normal. Electrocardiogram revealed a sinus rhythm with premature atrial complexes, left axis deviation, 70 bpm. Coding Level of Care Code 96139 Initial Inpt Care Lvl 3 Diagnoses Stroke I63.9 Carotid stenosis, symptomatic, with infarction I63.239 Vertebral artery occlusion I65.09 Vascular dementia F01.50
--- NOTE | 2022-07-26 16:13 | Hospitalist Progress Note ---
Date of Service July 26, 2022 Assessment & Plan (1) Vertebral artery occlusion: (2) Stroke: Plan: Present on admission with stroke like symptoms ( right side weakness) and fall CT head showed no acute finding CTA head/neck showed progression of severe stenosis of the petrous portion of the left internal carotid artery with 80-90% stenosis. Interval development of occlusion versus trace flow within the intracranial portion of the left vertebral artery. Plaque within the proximal bilateral internal carotid arteries without associated stenosis. MRI head showed several subcentimeter acute to subacute appearing infarcts are present within the centrum semiovale watershed distribution of the left frontal and parietal lobes. A few additional tiny foci are also present within the left occipital lobe with a single focus within the superior aspect of the right frontal lobe. ECHO showed no segmental left ventricular wall motion abnormality. The interatrial septum is intact with no evidence for an atrial septal defect Neuro on board recommended plavix, aspirin and statin case discussed with the neurology triage in [place] Dr. Wilhelm that recommended no urgent intervention needed for the severe stenosis of the petrous portion of the left internal carotid artery but would like me to discuss the case with neurovascular to confirm if patient need to get the procedure done now or in 2 weeks. Case discussed with neurovascular surgery Dr. Osorio that recommended outpatient follow up in [place] in 2 to 4 weeks. No additional imaging needed as per dr. Osorio PT/OT eval Continue monitor closely Dyslipidemia Cholesterol 261, LDL 186, HDL 41 and triglycerides 171 Will start on Atorvastatin 80mg daily HTN Will allow permissive hypertension SBP btw 140 to 160 Continue hydralazine prn for SBP above 180 Continue monitor BP Diabetes Most recent Hba1c 7.5 Continue Insulin and sliding scale Continue monitor BP DVT px on SCD, will add heparin subq CODE STATUS Full code Admission and Anticipated Discharge Date Admission Date: July 25, 2022 Subjective Pt was seen and examined for follow up of acute CVA Lying in bed with no acute distress with at bedside Pt said that he feels ok denies any new complaint Review of Systems Review of Systems: All systems reviewed & are unremarkable except as noted in Subjective Physical Exam Physical Exam: General- No acute distress Head- atraumatic Eyes- PERRL, EOMI, ENT- oropharynx clear Neck- supple, no JVD Lungs- clear to auscultation Heart- regular rhythm; no murmur Abdomen- normal bowel sounds, soft, nontender Extremities- no calf tenderness Neuro- alert, oriented, PERRL, EOMI; no facial palsy; no dysarthria, finger to nose intact, No pronator drift. Sensation is intact. Skin- warm & dry Results & Data Results & Data ([facility]) Vital Signs (Past 12 Hours) Vital Signs Temp Pulse Pulse Resp BP Pulse Ox O2 Del Method 07/26/22 12:41 36.4 C L 75 18 160/95 H 93 07/26/22 08:33 36.6 C 80 18 158/91 H 94 Room Air 07/26/22 05:16 77 07/26/22 04:47 69 169/91 H
[2022-07-26] MEDS ORDERED: LANTUS PER UNIT CHARGE SQ SCH (21:00)
[2022-07-26] MEDS ORDERED: OLANZapine 10 MG/2.1 ML SDV IM PRN (21:07)
[2022-07-27 05:56] LABS: Basophils # (auto) 0.03 K/uL (0-0.2); Basophils % (auto) 0.5 %; Eosinophils # (auto) 0.25 K/uL (0-0.50); Eosinophils % (auto) 3.8 %; Hematocrit (blood only) 38.9 % (40.1-51.0); Hemoglobin 13.6 g/dl (14.0-18.0); Immature Granulocytes # (auto) 0.02 K/uL (0.00-0.02); Immature Granulocytes % (auto) 0.3 %; Lymphocytes % (auto) 33.7 %; Mean Corpuscular Hemoglobin 32.2 pg (25.0-34.0); Mean Platelet Volume 8.9 fL (9.4-12.4); Monocytes # (auto) 0.81 K/uL (0.24-0.82); Monocytes % (auto) 12.4 %; Neutrophils # (auto) 3.21 K/uL (1.4-6.5); Neutrophils % (auto) 49.3 %; Platelet Count 210 K/uL (130-400); RDW Coefficient of Variation 12.7 % (11.5-14.5); RDW Standard Deviation 42.7 fL (36.4-46.3); Red Blood Count 4.23 M/uL (4.63-6.08); White Blood Count 6.52 K/ul (4.8-10.8)
[2022-07-27 06:24] LABS: BUN Creatinine Ratio 11.3 (10-20); Calcium 8.9 mg/dl (8.5-10.1); Creatinine Clr Calc Pharmacy 83.6 ml/min; Potassium 3.9 mmol/L (3.5-5.1)
[2022-07-27] MEDS: INSULIN ASPART PER UNIT SC SCH ×2 (08:38→12:43)
[2022-07-27] MEDS: FOLIC ACID 400 MCG TAB PO SCH (08:44)
[2022-07-27] MEDS: CITALOPRAM 20 MG TAB PO SCH (08:44)
[2022-07-27] MEDS: ASPIRIN 81 MG ECTAB PO SCH (08:44)
[2022-07-27] MEDS ORDERED: ATORVASTATIN 40 MG TAB PO SCH (09:00)
[2022-07-27] MEDS ORDERED: CLOPIDOGREL BISULFATE 75 MG TAB PO SCH (09:00)
--- NOTE | 2022-07-27 12:19 | Neurology Progress Note ---
Date of Service July 27, 2022 Assessment & Plan (1) Stroke: (2) Carotid stenosis, symptomatic, with infarction: (3) Vertebral artery occlusion: (4) Vascular dementia: Plan Patient seems clinically stable compared with yesterday. Continues to exhibit mild confusion likely related to underlying vascular dementia. Exhibits mild difficulty with speech fluency and a very mild right hemiparesis. As per my initial consultation report multifocal ischemic stroke within the left cerebral hemisphere likely consistent with watershed distribution infarct in the setting of an 80 to 90% stenosis of the left petrous internal carotid artery. He also has complete occlusion of the left vertebral artery. There is a single ischemic focus within the superior aspect of the right frontal lobe as well. He may have a combination of both embolic and watershed infarction. Continue with dual antiplatelet therapy, aspirin 81 mg/day, clopidogrel 75 mg/day. Continue with atorvastatin 80 mg/day. Would not aggressively treat patient's hypertension. Would rather his systolic blood pressure remain closer to 140 mmHg. Notably, his blood pressure appears normal this morning, he is not on an antihypertensive at this time. He should have some follow-up with his PCP after this hospitalization for monitoring of his blood pressure. Patient's case was discussed with neurovascular surgery at [facility] who had recommended outpatient follow-up in 2 to 4 weeks. This patient follows with the local [facility] neurology group. He may continue to follow with local [facility] neurology after discharge. Admission and Anticipated Discharge Date Admission Date: July 25, 2022 Subjective Follow-up for stroke Patient has been neurologically stable, no recurrent strokelike episodes. Remains moderately confused, slightly disoriented. Denies headache, vision disturbance, or obvious focal weakness. Does not have any specific complaints. Review of Systems Constitutional: no fever and no chills Eyes: no blind spots and no diplopia Neurologic: no localized weakness and no headache(s) Results & Data ([facility]) Vital Signs (Past 12 Hours) Vital Signs Temp Pulse Pulse Resp BP BP Pulse Ox 07/27/22 08:00 70 07/27/22 11:14 36.7 C 71 19 136/76 91 07/27/22 07:43 36.5 C 66 19 128/74 94 07/27/22 03:21 36.4 C L 68 16 134/74 95 O2 Del Method 07/27/22 08:00 07/27/22 11:14 Room Air 07/27/22 07:43 Room Air 07/27/22 03:21 Room Air Laboratory Results WBC 6.52, hemoglobin 13.6, hematocrit 38.9, MCV 92.0, platelet count 210, sodium 137, potassium 3.9, BUN 9, creatinine 0.80, glucose 196, calcium 8.9, triglycerides 171, cholesterol 261, LDL 186, VLDL 34, HDL 41 Diagnostic Findings Results of imaging including CT angiography of the head and neck and brain MRI are as described previously. See consultation from yesterday for further details. Exam (Neuro) Neurologic: Oriented to:: Person and Place; negative Time Memory: Remote Intact; negative Short Term Intact Attention: Span Intact; negative Concentration Intact Speech Fluency: Other (Speech is mildly slowed, mild difficulty with object naming, comprehension intact.) Fund of Knowledge: Vocabulary; negative Current Events Cranial Nerves: Normal II, III, IV, , V, VII, VIII, IX, X, XI and XII Motor Strength: Normal Lower Extremities and Normal Upper Extremities Muscle Bulk/Involuntary Movements: No Involuntary Movements Coordination: Finger-Nose Abnormal Laterality: Right Details: Fixed with arm roll on the right noted. Facility normal. No signs of hemineglect. Does not extinguish to double simultaneous stimulation. Coding Level of Care Code 61959 Subseq Hosp Care Lvl 3 Diagnoses Stroke I63.9 Carotid stenosis, symptomatic, with infarction I63.239 Vertebral artery occlusion I65.09 Vascular dementia F01.50
[2022-07-27] MEDS ORDERED: STROKE PATIENT DISCHARGE STA (16:04)
--- NOTE | 2022-07-27 16:09 | Discharge Summary ---
Date of Service July 27, 2022 Discharge Exam General- No acute distress Head- atraumatic Eyes- PERRL, EOMI, ENT- oropharynx clear Neck- supple, no JVD Lungs- clear to auscultation Heart- regular rhythm; no murmur Abdomen- normal bowel sounds, soft, nontender Extremities- no calf tenderness Neuro- alert, oriented, PERRL, EOMI; no facial palsy; no dysarthria, finger to nose intact, No pronator drift. Sensation is intact. Skin- warm & dry Discharge Data Allergies Allergy/AdvReac Type Severity Reaction Status Date / Time No Known Allergies Allergy Verified 07/25/22 19:37 Consultations 07/25/22 22:42 ED Decision to Admit Stat 07/26/22 08:00 Consult Neurology Routine Ordered Studies 07/25/22 19:23 CT head/brain wo con Stat 07/25/22 19:47 CT angio head w con Stat CT angio neck with con Stat 07/26/22 00:52 MR brain wo/w con Routine Hospital Course (1) Vertebral artery occlusion: (2) Stroke: Present on admission with stroke like symptoms ( right side weakness) and fall CT head showed no acute finding CTA head/neck showed progression of severe stenosis of the petrous portion of the left internal carotid artery with 80-90% stenosis. Interval development of occlusion versus trace flow within the intracranial portion of the left vertebral artery. Plaque within the proximal bilateral internal carotid arteries without associated stenosis. MRI head showed several subcentimeter acute to subacute appearing infarcts are present within the centrum semiovale watershed distribution of the left frontal and parietal lobes. A few additional tiny foci are also present within the left occipital lobe with a single focus within the superior aspect of the right frontal lobe. ECHO showed no segmental left ventricular wall motion abnormality. The interatrial septum is intact with no evidence for an atrial septal defect Neuro on board recommended plavix, aspirin and statin case discussed with the neurology triage in [place] Dr. Wilhelm that recommended no urgent intervention needed for the severe stenosis of the petrous portion of the left internal carotid artery but would like me to discuss the case with neurovascular to confirm if patient need to get the procedure done now or in 2 weeks. Case discussed with neurovascular surgery Dr. Osorio that recommended outpatient follow up in [place] in 2 to 4 weeks. No additional imaging needed as per dr. Devon PT/OT eval - Will go home with home health Your provider or Neurology will arrange for Zio Patch outpatient Continue monitor closely Dyslipidemia Cholesterol 261, LDL 186, HDL 41 and triglycerides 171 Will start on Atorvastatin 80mg daily HTN Will allow permissive hypertension SBP btw 140 to 160 Continue hydralazine prn for SBP above 180 Continue monitor BP Diabetes Most recent Hba1c 7.5 Continue Insulin and sliding scale Continue monitor BP DVT px on SCD, will add heparin subq CODE STATUS Full code Discharge Plan Discharge Items Patient Disposition: Home - Home Health Services Reason For Visit: STROKE LIKE SYMPTOMS Discharge Diagnosis: Vertebral artery occlusion: Stroke: Dyslipidemia HTN Diabetes Activity: Resume your previous activity Weightbearing: Full weightbearing Non-emergency contact: Primary Care Provider and Neurologist Call non-emergency contact if: you have any medication questions Follow-up/Referrals: Jake Maya DO [Physician] - (Date & Time 09/05/2022 4:00 PM Provider Jake Maya DO Department Neurology [facility] ) Gera Hanley DO [Primary Care Provider] - (Date & Time 08/01/2022 11:00 AM Provider ANNEMARIE Cordero Department [facility] ) Diet: Carb Consistent or DM2 Addtl Attending Provider Instructions: Follow up with primary care provider 08/01/2022 @ 11:00 AM ( Dr. Gera Hanley colleague) ANNEMARIE Cordero Department [facility] Follow up with neurology 09/05/2022 @4:00 PM Jake Maya DO Department Neurology [facility] Follow up with Neurovascular in [place] for the severe stenosis of the petrous portion of the left internal carotid artery ( your provider will arrange for the referral) Continue physical and occupational therapy with home health services You will need to arrange for a Zio Patch to monitor your heart rhythm ( your provider or neurology will order it) Fall precaution Avoid any other NSAIDs such as (motrin, aleve, naproxen, ibuprofen, advil,..) due to the risk of bleeding while on Plavix and aspirin Continue monitor your blood pressure and bring your blood pressure log at your next appointment with your provider New medications: Plavix 75mg daily Aspirin 81 mg daily Atorvastatin 80mg daily Pending Studies at Discharge: No Stand-Alone Forms: [facility], Smoking Cessation Medications and DC Order Prescriptions: New clopidogrel 75 mg Tablet 75 mg PO QAM Qty: 30 0RF atorvastatin 40 mg Tablet 80 mg PO QAM 30 Days Qty: 60 0RF aspirin 81 mg Tablet,Delayed Release (Dr/Ec) 81 mg PO QAM 30 Days Qty: 30 0RF Continued insulin aspart U-100 [Novolog PenFill U-100 Insulin] 100 unit/mL Cartridge 0 sliding scale dose SUBCUT TIDM Rx Instructions: per carb count Tresiba FlexTouch U-100 100 unit/mL (3 mL) Insulin Pen 23 unit SUBCUT HS citalopram 10 mg tablet 5 mg PO DAILY milk thistle 150 mg Capsule 0 mg PO DAILY Rx Instructions: UNSURE OF STRENGTH chromium picolinate 200 mcg Tablet 0 mcg PO DAILY Rx Instructions: UNSURE OF STRENGTH zinc gluconate 50 mg Tablet 0 mg PO DAILY Rx Instructions: UNSURE OF STRENGTH magnesium 250 mg Tablet 0 mg PO DAILY Rx Instructions: UNSURE OF STRENGTH vitamin E 268 mg (400 unit) Capsule 0 mg PO DAILY Rx Instructions: UNSURE OF STRENGTH folic acid 800 mcg Tablet 0 mg PO DAILY Rx Instructions: UNSURE OF STRENGTH cholecalciferol (vitamin D3) [Vitamin D3] 25 mcg (1,000 unit) Capsule 0 mcg PO DAILY Rx Instructions: UNSURE OF STRENGTH coenzyme Q10 [CoQ-10] 100 mg Capsule 0 mg PO DAILY Rx Instructions: UNSURE OF STRENGTH potassium gluconate 595 mg (99 mg) Tablet 0 mg PO DAILY Rx Instructions: UNSURE OF STRENGTH Other Vits & Minerals Unknown 1 dose PO DAILY Rx Instructions: PER PT'S "CAN'T REMEMBER ALL OF THE VITAMINS & MINERALS THAT I GIVE HIM", Discharge Orders: Discharge Order (Routine); Ordered 07/27/22 Ordered By: Liv Rivero/Other Patient Handouts: Managing Type 2 Diabetes Admission Data Admit Date/Time: 07/25/22 23:46 Attending Provider: Liv Shea Admit Provider: German Neal Primary Care Provider: Gera Hanley Other Providers: German Neal ; Benito Campoverde ; Arya Grier ; Elza Emerson ; Nanda Wetzel ; Samuel Colby ; Nanda Carpenter ; Mikel Carl ; Eun Miller ; Jake Maya ; Beatriz Oliveira ; Yamile Deal ; Terry Hernandez ; [facility]
--- NOTE | 2022-07-27 17:00 | Pharmacy Report ---
Pharmacist Stroke Counseling - Date of Service July 27, 2022 - Scope: Pharmacy has been consulted to provide medication discharge counseling for this patient admitted with [ischemic stroke] [hemorrhagic stroke] [transient ischemic attack] as per the Pharmacist Discharge Counseling for Stroke Patients Lisandra col. - Medications on Discharge: Home Medications Medication Instructions Recorded Confirmed insulin aspart U-100 100 unit/mL 0 sliding scale dose subcut TIDM 07/06/20 07/25/22 subcutaneous cartridge (Novolog PenFill U-100 Insulin aspart) insulin degludec 100 unit/mL (3 23 unit subcut HS 07/06/20 07/25/22 mL) subcutaneous pen (Tresiba FlexTouch U-100 insulin) Other Vits & Minerals Unknown 1 dose PO DAILY 07/25/22 07/25/22 cholecalciferol (vitamin D3) 25 0 mcg PO DAILY 07/25/22 07/25/22 mcg (1,000 unit) capsule (Vitamin D3) chromium picolinate 200 mcg tablet 0 mcg PO DAILY 07/25/22 07/25/22 citalopram 10 mg tablet 5 mg PO DAILY 07/25/22 07/25/22 coenzyme Q10 100 mg capsule 0 mg PO DAILY 07/25/22 07/25/22 (CoQ-10) folic acid 800 mcg tablet 0 mg PO DAILY 07/25/22 07/25/22 magnesium 250 mg tablet 0 mg PO DAILY 07/25/22 07/25/22 milk thistle 150 mg capsule 0 mg PO DAILY 07/25/22 07/25/22 potassium gluconate 595 mg (99 mg) 0 mg PO DAILY 07/25/22 07/25/22 tablet vitamin E 268 mg (400 unit) capsule 0 mg PO DAILY 07/25/22 07/25/22 zinc gluconate 50 mg tablet 0 mg PO DAILY 07/25/22 07/25/22 New Rx's Medication Instructions Recorded aspirin 81 mg tablet,delayed 81 mg PO QAM 30 days #30 tabs 07/27/22 release atorvastatin 40 mg tablet 80 mg PO QAM 30 days #60 tabs 07/27/22 clopidogrel 75 mg tablet 75 mg PO QAM #30 tabs 07/27/22 - Action: The above medications, specifically ones for stroke treatment/prophylaxis (aspirin, clopidogrel, and atorvastatin), have been reviewed in detail with the patient and/or patient sales representative leather goods(s) prior to discharge. This includes indication, common adverse reactions, drug interactions, and medication administration. Medication counseling has been employed using the teach-back method to ensure understanding. - Outcome: The patient and/or patient sales representative leather goods(s) have demonstrated understanding of the medications. Additional comments: N/A. Thank you for allowing pharmacy to be involved in the care of this patient. Please call [phone] with any additional questions
== END 2022-07-27 16:55 | disposition home health service (06) | DRG 65 ==
LOC: ED 19:05 → SUATTDRO 23:46 → 4W 23:46
DX: Z87.891 Personal history of nicotine dependence; G81.91 Hemiplegia, unspecified affecting right dominant side; I63.239 Cerebral infarction due to unspecified occlusion or stenosis of unspecified carotid artery; F01.50 Vascular dementia, unspecified severity, without behavioral disturbance, psychotic disturbance, mood disturbance, and anxiety; R29.6 Repeated falls; Z79.4 Long term (current) use of insulin; E78.5 Hyperlipidemia, unspecified; I65.09 Occlusion and stenosis of unspecified vertebral artery; I10 Essential (primary) hypertension; E11.9 Type 2 diabetes mellitus without complications

== ENCOUNTER 2022-09-01 05:02 | Inpatient (IN) ==
[2022-09-01 05:35] LABS: Basophils # (auto) 0.05 K/uL (0-0.2); Basophils % (auto) 0.7 %; Eosinophils # (auto) 0.13 K/uL (0-0.50); Eosinophils % (auto) 1.8 %; Hematocrit (blood only) 42.4 % (40.1-51.0); Hemoglobin 14.9 g/dl (14.0-18.0); Immature Granulocytes # (auto) 0.03 K/uL (0.00-0.02); Immature Granulocytes % (auto) 0.4 %; Lymphocytes # (auto) 1.79 K/uL (1.2-3.4); Lymphocytes % (auto) 24.2 %; Mean Corpuscular Hemoglobin 32.2 pg (25.0-34.0); Mean Corpuscular Hgb Conc 35.1 g/dL (32.0-36.0); Mean Corpuscular Volume 91.6 fL (80.0-100.0); Mean Platelet Volume 9.3 fL (9.4-12.4); Monocytes # (auto) 0.66 K/uL (0.24-0.82); Monocytes % (auto) 8.9 %; Neutrophils # (auto) 4.74 K/uL (1.4-6.5); Platelet Count 206 K/uL (130-400); RDW Coefficient of Variation 12.5 % (11.5-14.5); RDW Standard Deviation 41.4 fL (36.4-46.3); Red Blood Count 4.63 M/uL (4.63-6.08)
--- NOTE | 2022-09-01 05:43 | Emergency Department Note ---
History of Present Illness General Chief complaint: Stroke/CVA Symptoms Stated complaint: TIA, SYMPTOMS RESOLVED Time Seen by Provider: 09/01/22 05:23 History of Present Illness This 76-year-old with a history of vascular dementia and TIAs presents to the ER complaining of confusion episode and right-sided weakness that is improving Location: Generalized Quality: Confused Severity: Moderate Duration: Tonight Timing: Tonight Context: was concerned and called EMS Modifying factors: better with nothing; worse with nothing Patient himself is not exactly clear what is going on. Per EMS the called as patient had right-sided weakness and was confused. He was here last month with similar presentation. He does have some dementia. Patient denies chest pain, dyspnea, fevers, vision problems, numbness, tingling, localized weakness. He knows where he is at but not the month or year. He follows commands. states he had some right-sided weakness that has resolved and he has been fa lling more frequently. Home Medications Medication Instructions Recorded Confirmed Type insulin aspart U-100 100 unit/mL 0 sliding scale dose subcut TIDM 07/06/20 07/25/22 History subcutaneous cartridge (Novolog PenFill U-100 Insulin aspart) insulin degludec 100 unit/mL (3 23 unit subcut HS 07/06/20 07/25/22 History mL) subcutaneous pen (Tresiba FlexTouch U-100 insulin) Other Vits & Minerals Unknown 1 dose PO DAILY 07/25/22 07/25/22 History cholecalciferol (vitamin D3) 25 0 mcg PO DAILY 07/25/22 07/25/22 History mcg (1,000 unit) capsule (Vitamin D3) chromium picolinate 200 mcg tablet 0 mcg PO DAILY 07/25/22 07/25/22 History citalopram 10 mg tablet 5 mg PO DAILY 07/25/22 07/25/22 History coenzyme Q10 100 mg capsule 0 mg PO DAILY 07/25/22 07/25/22 History (CoQ-10) folic acid 800 mcg tablet 0 mg PO DAILY 07/25/22 07/25/22 History magnesium 250 mg tablet 0 mg PO DAILY 07/25/22 07/25/22 History milk thistle 150 mg capsule 0 mg PO DAILY 07/25/22 07/25/22 History potassium gluconate 595 mg (99 mg) 0 mg PO DAILY 07/25/22 07/25/22 History tablet vitamin E 268 mg (400 unit) capsule 0 mg PO DAILY 07/25/22 07/25/22 History zinc gluconate 50 mg tablet 0 mg PO DAILY 07/25/22 07/25/22 History clopidogrel 75 mg tablet 75 mg PO QAM #30 tabs 07/27/22 Rx atorvastatin 80 mg tablet 80 mg PO DAILY #30 tabs 07/28/22 Rx Allergies Allergy/AdvReac Type Severity Reaction Status Date / Time No Known Allergies Allergy Verified 07/25/22 19:37 Past Med/Surg History Medical History (Updated 09/01/22 @ 05:43 by Angela Harvey PA-C) Carotid stenosis, symptomatic, with infarction Stroke TIA (transient ischemic attack) Vascular dementia Vertebral artery occlusion Surgical History (Updated 09/01/22 @ 05:38 by Angela Harvey PA-C) No pertinent past surgical history Social History Smoking Status: Former smoker Tobacco Type: Cigarettes Hx Alcohol Use: Yes Alcohol type: beer Hx Substance Use: No Preferred Language: Senegalese Communication Ability: Impaired Bull 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: No Beliefs That Will Affect Care: None Current Living Situation: Spouse Feels Safe at Home: Yes Assistive Devices: None Review of Systems A total of 10 systems reviewed and were otherwise negative Physical Exam Vital Signs Vital Signs - 24 hr 09/01/22 05:08 09/01/22 05:08 09/01/22 05:57 Temperature 36.5 C Temperature Source Oral Pulse Rate 77 Respiratory Rate 18 Blood Pressure 175/101 H Blood Pressure Mean 125 Blood Pressure Position Lying Pulse Oximetry 98 Oxygen Delivery Method Room Air Room Air Room Air Oxygen Flow Rate 96 Sepsis Recent Fever Within 48 Hours No Sepsis New/Unexplained Change in Mental Status N/A Sepsis Action Taken by Nursing No Action Required VITALS: Vitals are noted on the nurse's note and reviewed by myself. Vital signs stable. GENERAL: Elderly male following commands, in no acute distress, nondiaphoretic, well-developed well-nourished. SKIN: The skin was without rashes, erythema, edema, or bruising. There is no tenting of the skin. Capillary reflex less than 2 seconds. HEAD: Normocephalic atraumatic. EARS: External auditory canals clear, EYES: Pupils equal round and reactive to light and accommodation. Conjunctivae without injection, sclerae without icterus. Extraocular movements intact. NOSE: Patent, turbinates without inflammation or discharge MOUTH: Mucous membranes moist. Pharynx without erythema or exudate. Uvula midline. Airway patent. Tongue does not deviate. NECK: Supple without nuchal rigidity. No lymphadenopathy. No thyromegaly. Cervical spine is nontender. No JVD. HEART: Regular rate and rhythm LUNGS: Clear to auscultation bilaterally without wheezes, rales or rhonchi. No retractions or accessory muscle use. ABDOMEN: Positive bowel sounds x 4. Normal tympanic percussion. Soft, nontender, without masses or organomegaly. Miller sign negative. No guarding or rebound tenderness. No CVA tenderness MUSCULOSKELETAL: No muscle atrophy, erythema, or edema noted. NEURO: Patient was alert and oriented to person but not to place and time. Nor mal sensation to light and sharp touch. No focal neurological deficits. Cranial nerves II through XII grossly intact. No pronator drift. Cerebellar exam intact Course Administered Medications Discontinued Medications Ioversol (Optiray 320 500ml) 125 ml IV ONCE ONE Stop: 09/01/22 06:04 Last Admin: 09/01/22 06:04 Dose: 103 ml Documented By: KAYLENE Medical Decision Making Medical Records Attestation: I reviewed the patient's medical records. Home Medications Current Medication List: was personally reviewed by me Laboratory Data Attestation: I reviewed the patient's lab results. Result diagrams: 09/01/22 05:18 09/01/22 05:18 Lab Results 09/01/22 09/01/22 09/01/22 Range/Units 05:18 05:18 05:18 WBC 7.40 (4.8-10.8) K/ul RBC 4.63 (4.63-6.08) M/uL Hgb 14.9 (14.0-18.0) g/dl Hct 42.4 (40.1-51.0) % MCV 91.6 (80.0-100.0) fL MCH 32.2 (25.0-34.0) pg MCHC 35.1 (32.0-36.0) g/dL RDW Std Deviation 41.4 (36.4-46.3) fL RDW Coeff of Nikita 12.5 (11.5-14.5) % Plt Count 206 (130-400) K/uL MPV 9.3 L (9.4-12.4) fL Immature Gran % (Auto) 0.4 % Neut % (Auto) 64.0 % Lymph % (Auto) 24.2 % [place] % (Auto) 8.9 % Eos % (Auto) 1.8 % Baso % (Auto) 0.7 % Neut # (Auto) 4.74 (1.4-6.5) K/uL Lymph # (Auto) 1.79 (1.2-3.4) K/uL [place] # (Auto) 0.66 (0.24-0.82) K/uL Eos # (Auto) 0.13 (0-0.50) K/uL Baso # (Auto) 0.05 (0-0.2) K/uL Immature Gran # (Auto) 0.03 H (0.00-0.02) K/uL PT 10.6 (9.0-12.0) Seconds INR 1.0 (0.9-1.1) APTT 25.1 (21.0-31.0) Seconds PTT Ratio 0.9 Sodium 137 (136-145) mmol/L Potassium 3.6 (3.5-5.1) mmol/L Chloride 105 (98-107) mmol/L Carbon Dioxide 25 (21-32) mmol/L Anion Gap 7 (3-11) BUN 15 (6-23) mg/dl Creatinine 0.73 (0.6-1.4) mg/dl Est Cr Clr Drug Dosing 86.1 ml/min Est GFR ( Amer) 105.9 ml/min Est GFR (Non-Af Amer) 91.4 ml/min BUN/Creatinine Ratio 20.5 H (10-20) Glucose 142 H (70-99(Fasting)) mg/dl Calcium 9.0 (8.5-10.1) mg/dl Magnesium 2.0 (1.7-2.4) mg/dl Total Bilirubin 0.6 (0.2-1.0) mg/dl AST 12 L (13-39) U/L ALT 13 (7-52) U/L Alkaline Phosphatase 36 (34-104) U/L Troponin I High Sens 8.9 (0-20) pg/ml Total Protein 6.9 (6.0-8.3) gm/dl Albumin 4.1 (3.4-5.0) gm/dl Globulin 2.8 (2.5-4.0) gm/dl Albumin/Globulin Ratio 1.5 (0.9-2) Imaging Data Attestation: I personally reviewed and interpreted this imaging study as follows: MDM Narrative Prior records/ancillary studies reviewed and summarized above. Nursing notes reviewed. Additional history obtained from nursing. The patient's history was concerning for stroke symptoms. Differential diagnosis: Etiologies such as metabolic, infection, hypo/hyperglycemia, electrolyte abnormalities, cardiac sources, intracerebral event, toxicologic, neurologic, as well as others were entertained. Physical examination: As above. ER treatment provided: IV Lock An order was placed for continuous cardiac monitoring. The monitor shows a rate of 60-100 with a sinus rhythm. Patient was emergently sent down for stroke work-up On reassessment the patient felt better. Diagnostics interpretation by me: ECG: Ordered for weakness EKG: Normal sinus, left axis, no acute ST-T wave changes. Impression normal sinus rhythm interpreted by myself I think arrhythmia is unlikely. EKG shows normal sinus rhythm with no interval abnormalities such as QT prolongation or WPW. There are no findings to suggest Brugada syndrome. Cardiac monitoring in the emergency department reveals no tachycardic or bradycardic dysrhythmia. Hypertrophic cardiomyopathy was considered but there are no clear historical elements pointing toward this. EKG is not suggestive. The QRS voltage is not extremely large The labs revealed no worrisome leukocytosis, Mild hyperglycemia without DKA neg troponin Imaging studies: CT HEAD: No evidence of acute intracranial pathology. Mild nonspecific white matter changes. Remote punctate foci of ischemic injury in the left frontal and par ietal lobe. 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 Comparison made to prior brain MRI from July 26, [address] from July 25, 2022. Radiologist: Delisa Kovacs MD Study ready at 06:07 and initial results transmitted at 06:13 Preliminary Findings Only See Final Report For Complete Findings CTA NECK: Findings concerning for heavy calcification of the distal left vertebral artery with occlusion of the terminal segment with recannulization prior to performing the anastomosis of the basilar artery. The left vertebral and anterior circulation are widely patent. These findings are unchanged from the prior CT angiogram of the head and neck from July 25, 2022. Radiologist: Delisa Kovacs MD Study ready at 06:07 and initial results transmitted at 06:17 Preliminary Findings Only See Final Report For Complete Findings CTA HEAD: No evidence of acute cerebrovascular pathology. There is occlusion of the terminal left vertebral artery with recanalization prior to the anastomosis of with the basilar artery. The right vertebral artery and anterior circulation are widely patent. These findings are unchanged from prior CT angiogram of the head from July 25, 2022. Radiologist: Delisa Kovacs MD Study ready at 06:07 and initial results transmitted at 06:22 Chest x-ray with no acute consolidation, pneumothorax or free air per my interpretation Consultation: A consultation was placed with the hospitalist. The case was discussed and diagnostics were reviewed. The patient was evaluated in the ER for further treatment. TIA Score: Age > 60:(1) 1 BP >140 >90 (1): 1 Clinical features (unilateral weakness) (2): 2 CF speech disturbance (1): 1 Duration of symptoms 10-60min (1): 1 Duration >60min (2): 0 Diabetes (1): 0 Score @ 2days @ 7days @ 90days 0-3 low 1% 1.2% 3.1% 4-5 mod 4.1% 5.9% 9.8% 6-7 high 8.1% 11.7% 17.8% Total: 6 Exam and history seem consistent with TIA symptoms. Patient was here last month with similar presentation. Imaging is unchanged per radiology. Patient apparently had right-sided weakness that improved by the time he got to the ER. Medicine was consulted. He will be evaluated for possible admission. By the evaluation outlined above emergent etiologies such as infection, electrolyte abnormalities, cardiac sources, intracerebral event, toxologic, abnormalities blood glucose, metabolic, as well as others were deemed relatively unlikely. The pt informed about the findings as listed above. All questions were answered and pleased with the treatment. The chart was completed utilizing [employer] voice recognition software. Grammatical errors, random word insertions, pronoun errors, and incomplete sentences are an occassional consequence of this system due to software limitations, ambient noise, and hardware issues. Any formal questions or concerns about the content, text, or information contained within the body of this dictation should be directly addressed to the physician assistant director of public works for clarification. Impression & Plan Transient cerebral ischemia, Acute confusion Discharge Plan Visit Data Chief Complaint: Stroke/CVA Symptoms Stated Complaint: TIA, SYMPTOMS RESOLVED ED Provider: Toni Lacy ED Midlevel Provider: Angela Harvey Discharge Problem: Transient cerebral ischemia, Acute confusion Patient Disposition: Admitted As Inpatient Condition: Fair Forms Stand Alone Forms: My [facility] Prescriptions Prescriptions: No Action insulin aspart U-100 [Novolog PenFill U-100 Insulin] 100 unit/mL Cartridge 0 sliding scale dose SUBCUT TIDM Rx Instructions: per carb count Tresiba FlexTouch U-100 100 unit/mL (3 mL) Insulin Pen 23 unit SUBCUT HS citalopram 10 mg tablet 5 mg PO DAILY milk thistle 150 mg Capsule 0 mg PO DAILY Rx Instructions: UNSURE OF STRENGTH chromium picolinate 200 mcg Tablet 0 mcg PO DAILY Rx Instructions: UNSURE OF STRENGTH zinc gluconate 50 mg Tablet 0 mg PO DAILY Rx Instructions: UNSURE OF STRENGTH magnesium 250 mg Tablet 0 mg PO DAILY Rx Instructions: UNSURE OF STRENGTH vitamin E 268 mg (400 unit) Capsule 0 mg PO DAILY Rx Instructions: UNSURE OF STRENGTH folic acid 800 mcg Tablet 0 mg PO DAILY Rx Instructions: UNSURE OF STRENGTH cholecalciferol (vitamin D3) [Vitamin D3] 25 mcg (1,000 unit) Capsule 0 mcg PO DAILY Rx Instructions: UNSURE OF STRENGTH coenzyme Q10 [CoQ-10] 100 mg Capsule 0 mg PO DAILY Rx Instructions: UNSURE OF STRENGTH potassium gluconate 595 mg (99 mg) Tablet 0 mg PO DAILY Rx Instructions: UNSURE OF STRENGTH Other Vits & Minerals Unknown 1 dose PO DAILY Rx Instructions: PER PT'S "CAN'T REMEMBER ALL OF THE VITAMINS & MINERALS THAT I GIVE HIM", clopidogrel 75 mg Tablet 75 mg PO QAM Qty: 30 0RF atorvastatin 80 mg tablet 80 mg PO DAILY Qty: 30 0RF Referrals Referrals: Gera Hanley DO [Primary Care Provider] - : Transient cerebral ischemia Qualifiers: Transient cerebral ischemia type: unspecified Qualified Code(s): G45.9 - Transient cerebral ischemic attack, unspecified
[2022-09-01 05:56] LABS: Partial Thromboplastin Ratio 0.9; Partial Thromboplastin Time 25.1 Seconds (21.0-31.0); Prothrombin Time 10.6 Seconds (9.0-12.0)
[2022-09-01 06:02] LABS: Albumin Globulin Ratio 1.5 (0.9-2); Albumin Level 4.1 gm/dl (3.4-5.0); BUN Creatinine Ratio 20.5 (10-20); Bilirubin,Total 0.6 mg/dl (0.2-1.0); Creatinine Clr Calc Pharmacy 86.1 ml/min; Est GFR (African American) 105.9 ml/min; Est GFR (Non-African American) 91.4 ml/min; Globulin 2.8 gm/dl (2.5-4.0); Potassium 3.6 mmol/L (3.5-5.1); Total Protein 6.9 gm/dl (6.0-8.3)
[2022-09-01] MEDS ORDERED: OPTIRAY 320 500ml IV ONE (06:03)
[2022-09-01 06:04] LABS: Troponin I High Sensitivity 8.9 pg/ml (0-20)
--- NOTE | 2022-09-01 06:31 | CT Scan Report ---
CT ANGIOGRAPHY OF THE NECK WITH CONTRAST CLINICAL HISTORY: Stroke Like Symptoms COMPARISON STUDY: CTA of the neck July 06, 2020 and July 25, 2022. Technique: CT angiography of the carotid and vertebral arteries was obtained using Optiray and 3D rec onstruction on an independent workstation. NASCET criteria was utilized. Automated exposure control was utilized for the study. A dose lowering technique was utilized adhering to the principles of ALA RA. CT DOSE: 1265.05 mGy.cm Findings: Visualized lung apices are unremarkable. There is no cervical lymphadenopathy. There is no acute cervical spine fracture. There is mild plaque within the proximal bilateral internal carotid ar teries without stenosis. Severe stenosis of the petrous portion of the left cavernous carotid is unch anged since CT of July 25, 2022. The right vertebral artery is dominant. The left vertebral artery is diminutive. This is unchanged. The stenosis of the distal right vertebral artery and occlusion of the distal left vertebral artery is better depicted on the CT of the head which will be reported sepa rately. There is no dissection within the neck. IMPRESSION: 1. Mild plaque within the proximal bilateral cervical internal carotid arteries without stenosis. 2. No dissection within the neck. 3. No change in severe stenosis of the petrous portion of the left internal carotid artery. ACT 112: Negative or not required by law. Electronically signed by: Chevy Tobias M.D. 09/01/2022 6:29 AM
--- NOTE | 2022-09-01 06:34 | CT Scan Report ---
CT SCAN OF THE BRAIN WITHOUT IV CONTRAST CLINICAL HISTORY: Strokelike symptoms. COMPARISON STUDY: CT of the brain dated 07/25/2022. TECHNIQUE: Unenhanced axial CT scan of the brain is performed from the vertex to the skull base. A do se lowering technique was utilized adhering to the principles of ALARA. FINDINGS: Brain parenchyma: There is age-related involutional change noting mild to moderate subcortical and pe riventricular microangiopathic disease. There is no hemorrhage, mass effect, or evidence of acute ter ritorial ischemia by CT criteria. Small chronic lacunar infarct is noted in the right thalamus. Cuadra- white matter differentiation is preserved. No extra-axial fluid collection is seen. Ventricles, sulci, cisterns: Prominent secondary to involutional change. Intracranial vasculature: There is atherosclerotic calcification of the cavernous carotid and vertebr al arteries. Calvarium: Unremarkable. Sinuses and mastoids: The visualized paranasal sinuses are clear. The mastoid air cells are well pneu matized. Orbits: The bony orbits are grossly intact. IMPRESSION: There is no hemorrhage, mass effect, or evidence of acute territorial ischemia by CT sandro dejesus. ACT 112: Negative or not required by law. Electronically signed by: Krishan Gonzalez M.D. 09/01/2022 6:32 AM
--- NOTE | 2022-09-01 06:35 | CT Scan Report ---
CTA ANGIOGRAPHY OF THE HEAD CLINICAL HISTORY: Stroke Like Symptoms COMPARISON STUDY: CTA of the head July 25, 2022. TECHNIQUE: Helical axial images of the head were obtained following uneventful intravenous administr ation of 103 cc of Optiray. Sagittal and coronal reconstructions were viewed as well as maximal inten sity projections on an independent 3-D workstation. Automated exposure control was utilized for the study. A dose lowering technique was utilized adhering to the principles of ALARA. FINDINGS: Please note that the head CT will be reported separately. Severe stenosis of the petrous po rtion of the left internal carotid artery is unchanged. There is no intracranial aneurysm. No abrupt vessel occlusion within the anterior circulation is noted. There is moderate plaque within the bilate ral cavernous carotids without stenosis. Mild multifocal stenoses within the left MCA are unchanged. Severe stenosis of the intracranial portion the right vertebral artery is unchanged. Occlusion of the intracranial portion of the left vertebral artery is similar to prior exam. Severe central stenoses within the basilar artery are unchanged as well. There is persistence of the left posterior cer ebral artery. Severe stenoses within the left posterior cerebral artery noted. There are moderate racquel noses within the right posterior cerebral artery. IMPRESSION: 1. No significant change since CTA of July 25, 2022. Occlusion of the intracranial portion of the l eft vertebral artery and severe stenoses of the intracranial portion of the right vertebral artery an d basilar artery, as above. 2. Severe multifocal stenoses within the intracranial vessels. Severe stenosis of the petrous portion of the left internal carotid artery is unchanged. 3. No abrupt vessel occlusion within the anterior circulation. ACT 112: Negative or not required by law. Electronically signed by: Chevy Tobias M.D. 09/01/2022 6:34 AM
--- NOTE | 2022-09-01 06:38 | XRay Report ---
XR chest 1V portable CLINICAL HISTORY: Altered mental status. COMPARISON STUDY: Chest radiograph July 25, 2022. FINDINGS: Lung volumes are normal. Lungs are clear. There is no pneumothorax or pleural effusion. Car diac size is normal. Mediastinal contours are normal. There is no evidence for pulmonary edema. IMPRESSION: No acute cardiopulmonary findings. ACT 112: Negative or not required by law. Electronically signed by: Chevy Tobias M.D. 09/01/2022 6:37 AM
--- NOTE | 2022-09-01 10:42 | History and Physical Report ---
DATE OF ADMISSION: 09/01/2022 CHIEF COMPLAINT: Stroke-like symptoms. HISTORY OF PRESENT ILLNESS: A 76-year-old male with past medical history significant for type 2 diabetes, hypertension, mild dementia, depression, and history of CVA, who presents with stroke-like symptoms. The patient was here recently last month with the same right hand weakness. At that time, MRIs showed acute or subacute infarct in the centrum semiovale watershed distribution of the left frontal and parietal lobes and a few tiny foci also present in the left occipital lobe with a single focus in the superior aspect of the right frontal lobe and also CTA head and neck showed progression of severe stenosis of the petrous portion of the left internal carotid artery with 80% to 90% stenosis. Seen by neurology in the hospital and was started on aspirin, Plavix, and statin .The case was discussed with neurovascular surgery at [facility], Dr. Osorio, who recommended outpatient followup in 2 to 4 weeks and also plan for Zio patch outpatient and the patient was discharged. The patient also followed with PCP and also there was a plan for followup with neurovascular surgeon, Dr. Osorio, on Sunday09/04/2022 and plan for any procedure and also plan for Zio patch. The patient lives with his . The patient is mostly bedbound as per , carrying on the chair for bathroom, and lately, he has some mild left-sided weakness from a previous stroke, but last 3 to 4 days, the weakness in the right hand is getting on and off worse from the baseline and he also has some slurred speech in the last 3 to 4 days on and off, and last night, he also complained of the numbness in the left side of body, right hand, and right leg and brought him into the hospital. Currently, he is back to his baseline speaking fine, alert and oriented to name and place, could tell his date of , but could not tell the current date. The patient has some short-term memory issues chronically as per the . Imaging studies, CTA of the head no significant change from the 07/25/2022 CT scan. CTA neck showed no change in severe stenosis of the petrous portion of the left internal carotid artery. The patient denies any headache, no blurred visions, somewhat hard of hearing, no runny nose, no sore throat, no cough, no chest pain, no abdominal pain, no nausea, no vomiting, normal bowel and bladder movements. Currently, hemodynamically stable. checks his sugars at home and she also checks his blood pressure. He is not on any blood pressure medications as per . Home health nurse checked his blood pressure and it is running okay. ALLERGIES: No known drug allergies. PAST MEDICAL HISTORY: As mentioned above. PAST SURGICAL HISTORY: Colonoscopy and hand surgery. MEDICATIONS: Plavix 75 mg p.o. daily, atorvastatin 80 mg p.o. daily, lisinopril 5 mg p.o. daily, insulin sliding scale, Tresiba 23 units subcutaneous at bedtime, and vitamin D 125 mcg p.o. daily. FAMILY HISTORY: Significant for Heart disease.. SOCIAL HISTORY: . Former smoker. Alcohol occasionally. No drug use. REVIEW OF SYSTEMS: As per HPI. Rest of the review of systems is negative. PHYSICAL EXAMINATION: GENERAL: The patient is moderate built, not in acute distress. VITAL SIGNS: Temperature 36.5, pulse 62, respiratory rate 15, blood pressure 159/87, and oxygen 92% on room air. HEENT: Pupils equal, round, and reactive to light. Oral mucosa moist. NECK: No JVD. No neck masses. CARDIOVASCULAR: S1 and S2 heard. Regular rate and rhythm. No murmur. No gallop. RESPIRATORY SYSTEM: Normal AP diameter. No accessory muscle use. No wheezing. No crackles. ABDOMEN: Soft, bowel sounds present, nontender, and no distention. CENTRAL NERVOUS SYSTEM: Alert and oriented to name and place. Remote memory seems intact. Insight is okay. Obeys simple commands. No facial droop his. Can clench his teeth. Power is 5/5 in all extremities. Hand training and development manager slightly diminished on the right side. No pronator drift. Sensation seems to be intact. EXTREMITIES: No edema. No erythema. LABORATORY DATA: WBC 7.4, hemoglobin 14.9, hematocrit 42.4, and platelets 206. PT 10.6, INR 1, and APTT 25.1. Sodium 137, potassium 3.6, chloride 105, bicarbonate 25, BUN 15, creatinine 0.7, serum glucose 122, calcium 9, and magnesium 2. Total bilirubin 0.6, AST 12, ALT 13, and alkaline phosphatase 36. Troponin I high sensitivity 8.9. SARS-CoV-2 rapid test negative. IMAGING DATA: Chest x-ray: No acute cardiopulmonary findings. CTA neck: Mild plaque within the proximal bilateral cervical internal carotid arteries without stenosis, no dissection within the neck, no change in severe stenosis of the petrous portion of the left internal carotid artery. 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 CT of the head without contrast: No acute findings. EKG: Normal sinus rhythm at a rate of 74, left axis deviation, no acute ST changes seen. ASSESSMENT AND PLAN: This is a 76-year-old male, who presents with stroke-like symptoms: 1. History of cerebrovascular accident a few years back and also recently. Recently started on aspirin, Plavix, and statin, but as per , he could not tolerate aspirin as he was having stomach discomfort, so he is only taking Plavix and statin. is okay to restart aspirin. Initial workup with CTA of the head and neck showed no new changes. CT of the head without contrast was okay. We will do a full stroke with MRI scan and speech evaluation. We will keep him NPO until he is seen by speech, neuro evaluation, PT/OT, closely monitor in the tele floor, follow lipid profile and HbA1c levels. 2. History of mild depression: Continue citalopram. 3. History of diabetes: Continue home long-acting insulin, placed on insulin sliding scale. We will monitor the blood sugars. 4. History of hypertension: Currently not taking any medications. We will allow for permissive hypertension and monitor the blood pressure. 5. History of mild dementia. Monitor for any delirium. 6. Deep venous thrombosis prophylaxis: Sequential compression devices for now. DISPOSITION: Closely monitor in the tele floor. Level 1 full code as per my discussion with the . PT/OT prior to discharge. Social service to help with discharge planning. Job ID: [id number] [facility]
[2022-09-01] MEDS ORDERED: NITROGLYCERIN SL 0.4 MG/TAB TAB SL PRN (11:16)
[2022-09-01] MEDS ORDERED: PHARMACIST DISCHARGE MED REC CONSULT PRN (11:16)
[2022-09-01] MEDS ORDERED: ACETAMINOPHEN 325 MG TAB PO PRN (11:16)
[2022-09-01] MEDS ORDERED: POLYETHYLENE (MIRALAX) 17 GM PACK PO PRN (11:16)
[2022-09-01] MEDS ORDERED: SODIUM CHLORIDE 0.9% 1000ML 1,000 ML IV SCH (11:16)
[2022-09-01] MEDS ORDERED: GADOBUTROL 65ML VIAL IV ONE (12:20)
--- NOTE | 2022-09-01 12:49 | Magnetic Resonance Report ---
Brain MRI WITH AND WITHOUT CONTRAST HISTORY: Right-sided weakness. Stroke symptoms TECHNIQUE: Multiplanar multisequence MRI of the brain was performed both before and after the intrave nous administration of contrast. COMPARISON STUDY: Head CT 09/01/2022. Brain MRI 07/26/2022. FINDINGS: There again noted scattered subcentimeter foci of restricted diffusion seen within the wate rshed distribution of the left frontal and parietal lobes. This demonstrates a similar pattern compar ed to the prior study but has slightly progressed. There is also a punctate focus of restricted diffu mora consistent with an acute infarct within the right frontal lobe which is new from the prior study . There is no mass, hematoma, or midline shift. Mild atrophy and microvascular ischemic changes are a gain noted. Occluded distal left vertebral artery, unchanged. The remaining major vascular flow voids at the skull base are well-maintained. The paranasal sinuses and mastoid air cells are clear. The or bits are unremarkable. Stable small developmental venous anomaly within the left high convexity. Othe rwise, no abnormal enhancement within the brain. IMPRESSION: There again noted scattered subcentimeter foci of restricted diffusion seen within the watershed dist ribution of the left frontal and parietal lobes consistent with acute infarcts. This demonstrates a s imilar pattern compared to the prior study but has slightly progressed. There is also a punctate focu s of restricted diffusion consistent with an acute infarct within the right frontal lobe which is new from the prior study. ACT 112: Negative or not required by law. Electronically signed by: Vidal Sears M.D. 09/01/2022 12:48 PM
--- NOTE | 2022-09-01 13:02 | Hospitalist Progress Note ---
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 - telemetry monitoring (2) H/O: CVA (cerebrovascular accident): Plan: - multiple foci seen on MRI and redemonstrated on repeat MRI brain 09/01/2022 - also in the setting of severe carotid and vertebral artery stenosis - was for NSG follow up 09/04/2022 - here with new symptoms as above - continue aspirin, statin, plavix as above - neurology consulted - PT/OT (3) Carotid stenosis, symptomatic, with infarction: Plan: - noted again on CTA head and neck - neurology consulted - aspirin, statin, plavix - NSG follow up 09/04/2022 (4) Memory impairment: Plan: - noted - at baseline (5) HTN (hypertension): Plan: - not on meds at this time - permissive hypertension for now - consider BP meds this admission if BP still elevated (6) DM2 (diabetes mellitus, type 2): Plan: - hgb A1c 7.6% 07/2022 - lantus 23 units qhs - ISS while inpatient - will need metformin on discharge Plan DVT ppx: heparin SC Code Status: Full Code Dispo: PCU Terry Hernandez MD [facility] Medicine Admission and Anticipated Discharge Date Admission Date: September 01, 2022 Subjective Patient with DM2, HTN, mild dementia, h/o CVA, carotid artery disease with recent admission for CVA who presented with right had numbness and weakness that was similar to prior. MRI at the time showed acute vs subacute infarct in centrum semiovale watershed of left frontal and parietal lobes with few tiny foci in left occipital and single focus in superior aspect of right frontal lobe and CTA head and neck with progression of severe stenosis of petrous portion of left internal carotid arter with 80-90% stenosis. Started on Aspirin, Plavix, statin at the time and had NSG consultation with plan to follow up outpatient. Presented with right hand weakness and numbness, now resolved. CTA head and neck this admission with similar stenosis pattern without progression. MRI brain showed new acute infarct in with punctate focus in right frontal lobe that was new from prior study. Continued on aspirin, statin, Plavix. Neurology consulted. Patient reports improvement in numbness and weakness in right hand, denies any new deficits. Family at bedside and reports increased word finding difficulty. They have also noticed a stepwise decline over last several months to year. Patient denies chest pain, shortness of breath, n/v/d, abdominal pain, dysuria. Review of Systems Review of Systems: All systems reviewed & are unremarkable except as noted in Subjective Physical Exam Physical Exam: GENERAL: The patient is moderate built, not in acute distress. HEENT: Pupils equal, round, and reactive to light. Oral mucosa moist. NECK: No JVD. No neck masses. CARDIOVASCULAR: S1 and S2 heard. Regular rate and rhythm. No murmur. No gallop. RESPIRATORY SYSTEM: Normal AP diameter. No accessory muscle use. No wheezing. No crackles. ABDOMEN: Soft, bowel sounds present, nontender, and no distention. CENTRAL NERVOUS SYSTEM: Alert and oriented to name and place. Remote memory seems intact. Insight is okay. Obeys simple commands. No facial droop. Can clench his teeth. Power is 5/5 in all extremities. Hand office lead equal on right and lef. No pronator drift. Sensation seems to be intact. some word finding difficulty this morning EXTREMITIES: No edema. No erythema. Results & Data Results & Data ([facility]) Vital Signs (Past 12 Hours) Vital Signs Temp Pulse Pulse Resp BP BP BP 09/01/22 11:16 36.2 C L 67 20 178/91 H 09/01/22 11:16 64 09/01/22 10:10 71 21 09/01/22 10:00 70 16 09/01/22 09:50 66 16 09/01/22 09:40 65 15 09/01/22 09:30 63 16 09/01/22 09:20 86 22 09/01/22 09:10 69 19 09/01/22 09:00 62 13 09/01/22 08:50 61 13 09/01/22 08:40 62 14 09/01/22 10:16 158/93 H 09/01/22 08:30 61 14 09/01/22 08:20 57 L 14 09/01/22 08:10 61 15 09/01/22 08:00 69 16 09/01/22 07:50 66 16 09/01/22 07:40 59 L 18 09/01/22 07:30 60 16 09/01/22 07:30 189/98 H 09/01/22 07:23 72 09/01/22 07:10 64 15 09/01/22 07:00 64 17 09/01/22 07:00 174/99 H 09/01/22 06:50 65 18 09/01/22 06:42 159/87 H 09/01/22 06:42 65 17 09/01/22 06:40 62 14 09/01/22 06:30 62 15 159/87 H 09/01/22 05:10 72 18 09/01/22 05:07 73 17 09/01/22 05:57 09/01/22 05:08 09/01/22 05:08 36.5 C 77 18 175/101 H Pulse Ox O2 Del Method O2 Flow Rate 09/01/22 11:16 95 Room Air 09/01/22 11:16 09/01/22 10:10 09/01/22 10:00 09/01/22 09:50 09/01/22 09:40 09/01/22 09:30 09/01/22 09:20 09/01/22 09:10 09/01/22 09:00 09/01/22 08:50 09/01/22 08:40 09/01/22 10:16 09/01/22 08:30 96 09/01/22 08:20 09/01/22 08:10 09/01/22 08:00 09/01/22 07:50 09/01/22 07:40 09/01/22 07:30 09/01/22 07:30 09/01/22 07:23 09/01/22 07:10 94 09/01/22 07:00 93 09/01/22 07:00 09/01/22 06:50 95 09/01/22 06:42 09/01/22 06:42 94 09/01/22 06:40 09/01/22 06:30 92 Room Air 09/01/22 05:10 93 Room Air 09/01/22 05:07 92 Room Air 09/01/22 05:57 Room Air 96 09/01/22 05:08 Room Air 09/01/22 05:08 98 Room Air Diagnostic Findings Laboratory Results WBC 7.40 K/ul (4.8-10.8) 09/01/22 05:18 RBC 4.63 M/uL (4.63-6.08) 09/01/22 05:18 Hgb 14.9 g/dl (14.0-18.0) 09/01/22 05:18 Hct 42.4 % (40.1-51.0) 09/01/22 05:18 MCV 91.6 fL (80.0-100.0) 09/01/22 05:18 MCH 32.2 pg (25.0-34.0) 09/01/22 05:18 MCHC 35.1 g/dL (32.0-36.0) 09/01/22 05:18 RDW Std Deviation 41.4 fL (36.4-46.3) 09/01/22 05:18 RDW Coeff of Nikita 12.5 % (11.5-14.5) 09/01/22 05:18 Plt Count 206 K/uL (130-400) 09/01/22 05:18 MPV 9.3 fL (9.4-12.4) L 09/01/22 05:18 Immature Gran % (Auto) 0.4 % 09/01/22 05:18 Neut % (Auto) 64.0 % 09/01/22 05:18 Lymph % (Auto) 24.2 % 09/01/22 05:18 [place] % (Auto) 8.9 % 09/01/22 05:18 Eos % (Auto) 1.8 % 09/01/22 05:18 Baso % (Auto) 0.7 % 09/01/22 05:18 Neut # (Auto) 4.74 K/uL (1.4-6.5) 09/01/22 05:18 Lymph # (Auto) 1.79 K/uL (1.2-3.4) 09/01/22 05:18 [place] # (Auto) 0.66 K/uL (0.24-0.82) 09/01/22 05:18 Eos # (Auto) 0.13 K/uL (0-0.50) 09/01/22 05:18 Baso # (Auto) 0.05 K/uL (0-0.2) 09/01/22 05:18 Immature Gran # (Auto) 0.03 K/uL (0.00-0.02) H 09/01/22 05:18 PT 10.6 Seconds (9.0-12.0) 09/01/22 05:18 INR 1.0 (0.9-1.1) 09/01/22 05:18 APTT 25.1 Seconds (21.0-31.0) 09/01/22 05:18 PTT Ratio 0.9 09/01/22 05:18 Sodium 137 mmol/L (136-145) 09/01/22 05:18 Potassium 3.6 mmol/L (3.5-5.1) 09/01/22 05:18 Chloride 105 mmol/L (98-107) 09/01/22 05:18 Carbon Dioxide 25 mmol/L (21-32) 09/01/22 05:18 Anion Gap 7 (3-11) 09/01/22 05:18 BUN 15 mg/dl (6-23) 09/01/22 05:18 Creatinine 0.73 mg/dl (0.6-1.4) 09/01/22 05:18 Est Cr Clr Drug Dosing 86.1 ml/min 09/01/22 05:18 Est GFR ( Amer) 105.9 ml/min 09/01/22 05:18 Est GFR (Non-Af Amer) 91.4 ml/min 09/01/22 05:18 BUN/Creatinine Ratio 20.5 (10-20) H 09/01/22 05:18 Glucose 142 mg/dl (70-99(Fasting)) H 09/01/22 05:18 POC Glucose 141 mg/dl (70-99) H 09/01/22 12:47 Calcium 9.0 mg/dl (8.5-10.1) 09/01/22 05:18 Magnesium 2.0 mg/dl (1.7-2.4) 09/01/22 05:18 Total Bilirubin 0.6 mg/dl (0.2-1.0) 09/01/22 05:18 AST 12 U/L (13-39) L 09/01/22 05:18 ALT 13 U/L (7-52) 09/01/22 05:18 Alkaline Phosphatase 36 U/L (34-104) 09/01/22 05:18 Troponin I High Sens 8.9 pg/ml (0-20) 09/01/22 05:18 Total Protein 6.9 gm/dl (6.0-8.3) 09/01/22 05:18 Albumin 4.1 gm/dl (3.4-5.0) 09/01/22 05:18 Globulin 2.8 gm/dl (2.5-4.0) 09/01/22 05:18 Albumin/Globulin Ratio 1.5 (0.9-2) 09/01/22 05:18 SARS-CoV-2, RNA, NAAT NEGATIVE (NEGATIVE) 09/01/22 06:[address] 09/01/22 05:16 CT SCAN OF THE BRAIN WITHOUT IV CONTRAST CLINICAL HISTORY: Strokelike symptoms. COMPARISON STUDY: CT of the brain dated 07/25/2022. TECHNIQUE: Unenhanced axial CT scan of the brain is performed from the vertex to the skull base. A dose lowering technique was utilized adhering to the principles of ALARA. FINDINGS: Brain parenchyma: There is age-related involutional change noting mild to moderate subcortical and periventricular microangiopathic disease. There is no hemorrhage, mass effect, or evidence of acute territorial ischemia by CT criteria. Small chronic lacunar infarct is noted in the right thalamus. [place]- white matter differentiation is preserved. No extra-axial fluid collection is seen. Ventricles, sulci, cisterns: Prominent secondary to involutional change. Intracranial vasculature: There is atherosclerotic calcification of the cavernous carotid and vertebral arteries. Calvarium: Unremarkable. Sinuses and mastoids: The visualized paranasal sinuses are clear. The mastoid air cells are well pneumatized. Orbits: The bony orbits are grossly intact. IMPRESSION: There is no hemorrhage, mass effect, or evidence of acute territorial ischemia by CT criteria. ACT 112: Negative or not required by law. Electronically signed by: Krishan Gonzalez M.D. 09/01/2022 6:32 AM Head CTA 09/01/22 05:16 CTA ANGIOGRAPHY OF THE HEAD CLINICAL HISTORY: Stroke Like Symptoms COMPARISON STUDY: CTA of the head July 25, 2022. TECHNIQUE: Helical axial images of the head were obtained following uneventful intravenous administration of 103 cc of Optiray. Sagittal and coronal reconstructions were viewed as well as maximal intensity projections on an independent 3-D workstation. Automated exposure control was utilized for the study. A dose lowering technique was utilized adhering to the principles of ALARA. FINDINGS: Please note that the head CT will be reported separately. Severe stenosis of the petrous portion of the left internal carotid artery is unchanged. There is no intracranial aneurysm. No abrupt vessel occlusion within the anterior circulation is noted. There is moderate plaque within the bilateral cavernous carotids without stenosis. Mild multifocal stenoses within the left MCA are unchanged. Severe stenosis of the intracranial portion the right vertebral artery is unchanged. Occlusion of the intracranial portion of the left vertebral artery is similar to prior exam. Severe central stenoses within the basilar artery are unchanged as well. There is persistence of the left posterior cerebral artery. Severe stenoses within the left posterior cerebral artery noted. There are moderate stenoses within the right posterior cerebral artery. IMPRESSION: 1. No significant change since CTA of July 25, 2022. 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 2. Severe multifocal stenoses within the intracranial vessels. Severe stenosis of the petrous portion of the left internal carotid artery is unchanged. 3. No abrupt vessel occlusion within the anterior circulation. ACT 112: Negative or not required by law. Electronically signed by: Chevy Tobias M.D. 09/01/2022 6:34 AM Neck CTA 09/01/22 05:16 CT ANGIOGRAPHY OF THE NECK WITH CONTRAST CLINICAL HISTORY: Stroke Like Symptoms COMPARISON STUDY: CTA of the neck July 06, 2020 and July 25, 2022. Technique: CT angiography of the carotid and vertebral arteries was obtained using Optiray and 3D reconstruction on an independent workstation. NASCET criteria was utilized. Automated exposure control was utilized for the study. A dose lowering technique was utilized adhering to the principles of ALARA. CT DOSE: 1265.05 mGy.cm Findings: Visualized lung apices are unremarkable. There is no cervical lymphadenopathy. There is no acute cervical spine fracture. There is mild plaque within the proximal bilateral internal carotid arteries without stenosis. Severe stenosis of the petrous portion of the left cavernous carotid is unchanged since CT of July 25, 2022. The right vertebral artery is dominant. The left vertebral artery is diminutive. This is unchanged. The stenosis of the distal right vertebral artery and occlusion of the distal left vertebral artery is better depicted on the CT of the head which will be reported separately. There i s no dissection within the neck. IMPRESSION: 1. Mild plaque within the proximal bilateral cervical internal carotid arteries without stenosis. 2. No dissection within the neck. 3. No change in severe stenosis of the petrous portion of the left internal carotid artery. ACT 112: Negative or not required by law. Electronically signed by: Chevy Tobias M.D. 09/01/2022 6:29 AM Chest X-Ray 09/01/22 06:00 XR chest 1V portable CLINICAL HISTORY: Altered mental status. COMPARISON STUDY: Chest radiograph July 25, 2022. FINDINGS: Lung volumes are normal. Lungs are clear. There is no pneumothorax or pleural effusion. Cardiac size is normal. Mediastinal contours are normal. There is no evidence for pulmonary edema. IMPRESSION: No acute cardiopulmonary findings. ACT 112: Negative or not required by law. Electronically signed by: Chevy Tobias M.D. 09/01/2022 6:37 AM Brain MRI 09/01/22 11:16 Brain MRI WITH AND WITHOUT CONTRAST HISTORY: Right-sided weakness. Stroke symptoms TECHNIQUE: Multiplanar multisequence MRI of the brain was performed both before and after the intravenous administration of contrast. COMPARISON STUDY: Head CT 09/01/2022. Brain MRI 07/26/2022. FINDINGS: There again noted scattered subcentimeter foci of restricted diffusion seen within the watershed distribution of the left frontal and parietal lobes. This demonstrates a similar pattern compared to the prior study but has slightly progressed. There is also a punctate focus of restricted diffusion consistent with an acute infarct within the right frontal lobe which is new from the prior study. There is no mass, hematoma, or midline shift. Mild atrophy and microvascular ischemic changes are again noted. Occluded distal left vertebral artery, unchanged. The remaining major vascular flow voids at the skull base are well-maintained. The paranasal sinuses and mastoid air cells are clear. The orbi ts are unremarkable. Stable small developmental venous anomaly within the left high convexity. Otherwise, no abnormal enhancement within the brain. IMPRESSION: There again noted scattered subcentimeter foci of restricted diffusion seen within the watershed distribution of the left frontal and parietal lobes consistent with acute infarcts. This demonstrates a similar pattern compared to the prior study but has slightly progressed. There is also a punctate focus of restricted diffusion consistent with an acute infarct within the right frontal lobe which is new from the prior study. ACT 112: Negative or not required by law. Electronically signed by: Vidal Sears M.D. 09/01/2022 12:48 PM Medications Administered Current Inpatient Medications Acetaminophen (Acetaminophen 325 Mg Tab) 650 mg PO Q4H PRN PRN Reason: Pain or Fever Stop: 10/01/22 11:15 Aspirin (Aspirin 81 Mg Ectab) 81 mg PO DAILY PAO Stop: 10/01/22 11:15 Atorvastatin Calcium (Atorvastatin 40 Mg Tab) 80 mg PO DAILY PAO Stop: 10/01/22 11:15 Citalopram Hydrobromide (Citalopram 20 Mg Tab) 5 mg PO DAILY PAO Stop: 10/02/22 08:59 Clopidogrel Bisulfate (Clopidogrel Bisulfate 75 Mg Tab) 75 mg PO QAM PAO Stop: 10/01/22 11:15 Sodium Chloride (Nss 1000ml) 1,000 mls @ 80 mls/hr IV .[id number] PAO Stop: 09/01/22 23:45 Last Admin: 09/01/22 12:40 Dose: 80 mls/hr Insulin Aspart (Insulin Aspart Per Unit) 0 units SC ACHS PAO Stop: 10/01/22 11:15 Insulin Glargine (Lantus Per Unit Charge) 23 units SQ HS PAO Stop: 10/01/22 20:59 Miscellaneous Information (Pharmacist Discharge Med Rec Consult) 1 each N/A UD PRN PRN Reason: Consult Stop: 10/01/22 11:15 Nitroglycerin (Nitroglycerin Sl 0.4 Mg/Tab Tab) 0.4 mg SL UD PRN PRN Reason: Chest Pain Stop: 10/01/22 11:15 Polyethylene Glycol (Polyethylene (Miralax) 17 Gm Pack) 17 gm PO DAILY PRN PRN Reason: Constipation Stop: 10/01/22 11:15
[2022-09-01] MEDS: CLOPIDOGREL BISULFATE 75 MG TAB PO SCH (13:19)
[2022-09-01] MEDS: ATORVASTATIN 40 MG TAB PO SCH (13:19)
[2022-09-01] MEDS: ASPIRIN 81 MG ECTAB PO SCH (13:19)
[2022-09-01] MEDS: INSULIN ASPART PER UNIT SC SCH ×3 (14:25→21:10)
[2022-09-01] MEDS: HEPARIN SOD 5,000 UNIT/0.5 ML VIAL SQ SCH ×2 (14:34→21:21)
--- NOTE | 2022-09-01 15:27 | Electrocardiogram Report ---
Test Reason : Blood Pressure : / mmHG Vent. Rate : 074 BPM Atrial Rate : 074 BPM P-R Int : 176 ms QRS Dur : 100 ms QT Int : 408 ms P-R-T Axes : 032 -45 091 degrees QTc Int : 452 ms Normal sinus rhythm Left axis deviation Voltage criteria for left ventricular hypertrophy Abnormal ECG When compared with ECG of 25-JUL-2022 19:39, Premature atrial complexes are no longer Present Confirmed by Eugenio Cerda ([id number]) on 09/01/2022 3:27:00 PM Referred By: REFERRED SELF Confirmed By:Eugenio Cerda
[2022-09-01 16:18] LABS: Chol HDL Ratio 5.9 (0-5)
[2022-09-01 16:32] LABS: Estimated Average Glucose 166 mg/dl; Hemoglobin A1C 7.4 % (4.5-5.6)
--- NOTE | 2022-09-01 16:43 | Neurology Consultation ---
Date of Consultation September 01, 2022 Assessment & Plan (1) Acute CVA (cerebrovascular accident): (2) Carotid stenosis, symptomatic, with infarction: (3) Vertebral artery occlusion: (4) Memory impairment: (5) DM2 (diabetes mellitus, type 2): (6) HTN (hypertension): the patient has multiple small acute infarcts mostly on the left in a watershed distribution between the frontal and parietal lobes. He also has 1 small stroke on the right frontal white matter. There are a mix of old a new left occipital infarcts. Clinically he is doing well and has no focal neurologic signs referable to stroke and does not have meningeal signs or encephalopathy. however, the patient has a severe stenosis of the distal left internal carotid artery, occlusion of the distal left vertebral artery, and severe stenosis of the distal right vertebral artery and basilar artery. In addition, there are multifocal stenoses in intracranial vessels diffusely. This patient is not getting collateral flow and is symptomatic with even standing up (decreased perfusion pressure). Any hypotension would put him at risk for stroke. Unfortunately, significant hypertension could create infarct as well (or even hemorrhage). 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 He has multiple risk factors for stroke including diabetes and hypertension as well as former cigarette smoker and dyslipidemia. Recommendations: 1. Continue 75 mg clopidogrel daily. I am not certain that adding aspirin will do anything positive in this case. 2. The escobedo to his strokes is maintaining cerebral perfusion pressure to the best agree, with permissive hypertension ) without letting the blood pressure get too high. I would think a mean arterial pressure of 110 (max 115) would be ideal (not lower than 100). 3. He needs to see a neurovascular surgeon to see if anything can be done around his distal Left carotid or vertebral/basilar arteries. if so, this might help increased perfusion pressure and given less chance for watershed infarct and events. 4. continue atorvastatin at the current dose. 5. control glucose is best as possible. 6. I am not certain I have any additional neurologic testing or treatment recommendations to make at this time however I think it would be important for him to see the neurovascular surgeon at [place] on Sunday , if stable. alternatively, he could be transferred to [place] to see what could be done from a neuro vascular standpoint. Overall, I spent a total of 100 min with this case, including review of records, review of MRI films, direct evaluation the patient bedside, and discussion of the case with the patient and his at bedside, and Dr. Hernandez, including differential diagnosis and treatment options. History of Present Illness Reason for Consultation: patient is a 76-year-old, who I was asked to see at the request of Dr. Hernandez, for neurologic consultation regarding stroke. Requesting Physician: Dr. Hernandez Attending Physician: Terry Hernandez MD History of Present Illness Patient is accompanied at bedside by his who at much of the history. The patient has a history of diabetes and hypertension with occasional hypotension. He quit cigarette smoking many years ago and has dyslipidemia being on a high dose of atorvastatin. Patient has been falling intermittently even is recently as 2 days ago. He just loses his balance or collapses. He has lightheaded and woozy when he stands. He has short-term memory deficits of a significant nature for the last 2 years. His long-term memory is fairly stable. The patient started getting stroke-like symptoms in April of this year and was having multiple episodes over the months. He was admitted in early July and saw Dr. Campoverde. He was having right upper extremity numbness and MRI of the brain showed multiple small strokes in the left hemisphere probably in a watershed pattern. CT angiography showed a 80-90% left internal carotid artery stenosis. There were other anomalies as well. He was sent home on 75 mg clop idogrel +80 1 mg aspirin daily. The aspirin upsets his stomach and he stopped it shortly thereafter, staying on clopidogrel alone. He was having issues with blood pressure and was advised by Dr. Campoverde not to "over correct". Patient was about the same Until early this morning when the patient's found him confused with right-sided weakness. He arrived to the emergency room at 5:08 a.m. on September 01 with a temperature of 36.5, pulse 77 regular, respiratory rate 18, and blood pressure 175/101. O2 saturation was 90%. His neurologic examination was basically nonfocal with no deficits at that time. CBC and Chem profile were unremarkable. Glucose was 142. CT scan of the head was unremarkable. CT angiography of the neck showed plaque in the proximal internal carotid arteries bilaterally with no dissection. There was an 80-90% stenosis (same as 1 month previous) of the petrous portion of the left internal carotid artery. The left vertebral artery intracranial portion was occluded with severe stenosis of the intracranial portion of the right vertebral and basilar artery. There are multifocal stenoses of the intracranial vessels diffusely. MRI of the brain revealed some acute small strokes in a watershed distribution between the left frontal and parietal lobes. This was somewhat to the pattern a month ago but much more in their number. There was also a an acute stroke in the right frontal lobe new from the previous study. Most recent echocardiogram in July of this year showed no significant abnormalities. There are no foci of emboli. Currently the patient has no pain or headache. He feels that his limbs are a little bit weak in general but he has no numbness or lack of feeling. He has no vision problems or dizziness. When he sits up he gets some lightheadedness. He has no neck pain. He is scheduled to see Dr. Wren, a neurovascular surgeon at [place] on September 04. Allergies Allergy/AdvReac Type Severity Reaction Status Date / Time No Known Allergies Allergy Verified 07/25/22 19:37 Home Medications Medication Instructions Recorded Confirmed Type insulin aspart U-100 100 unit/mL 0 sliding scale dose subcut TIDM 07/06/20 07/25/22 History subcutaneous cartridge (Novolog PenFill U-100 Insulin aspart) insulin degludec 100 unit/mL (3 23 unit subcut HS 07/06/20 07/25/22 History mL) subcutaneous pen (Tresiba FlexTouch U-100 insulin) Other Vits & Minerals Unknown 1 dose PO DAILY 07/25/22 07/25/22 History cholecalciferol (vitamin D3) 25 0 mcg PO DAILY 07/25/22 07/25/22 History mcg (1,000 unit) capsule (Vitamin D3) chromium picolinate 200 mcg tablet 0 mcg PO DAILY 07/25/22 07/25/22 History citalopram 10 mg tablet 5 mg PO DAILY 07/25/22 07/25/22 History coenzyme Q10 100 mg capsule 0 mg PO DAILY 07/25/22 07/25/22 History (CoQ-10) folic acid 800 mcg tablet 0 mg PO DAILY 07/25/22 07/25/22 History magnesium 250 mg tablet 0 mg PO DAILY 07/25/22 07/25/22 History milk thistle 150 mg capsule 0 mg PO DAILY 07/25/22 07/25/22 History potassium gluconate 595 mg (99 mg) 0 mg PO DAILY 07/25/22 07/25/22 History tablet vitamin E 268 mg (400 unit) capsule 0 mg PO DAILY 07/25/22 07/25/22 History zinc gluconate 50 mg tablet 0 mg PO DAILY 07/25/22 07/25/22 History clopidogrel 75 mg tablet 75 mg PO QAM #30 tabs 07/27/22 Rx atorvastatin 80 mg tablet 80 mg PO DAILY #30 tabs 07/28/22 Rx Patient History Medical History Carotid stenosis, symptomatic, with infarction Stroke TIA (transient ischemic attack) Vascular dementia Vertebral artery occlusion Surgical History No pertinent past surgical history Family History Father , He in his 70s of an [place] Primary Parkinson's disease Myocardial infarction Mother , age 101 No problems noted. 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 Beliefs That Will Affect Care: None Current Living Situation: Spouse Feels Safe at Home: Yes Safety Concerns: Feels Safe At This Time Assistive Devices: Other Review of Systems Constitutional: + weakness; no fever and no fatigue Eyes: no diplopia, no eye pain and no worsening vision Ear, Nose, Mouth, Throat: no ear pain, no tinnitus, no hearing loss, no dizziness, no snoring, no hoarseness and no dysphagia Respiratory: no cough and no dyspnea Cardiovascular: no chest pain, no palpitations and no lightheadedness Gastrointestinal: no abdominal pain, no nausea and no vomiting Musculoskeletal: no back pain, no neck pain, no radicular pain, no joint pain and no myalgia Integumentary: no rash and no lesions Neurologic: + gait abnormality and + memory loss; no localized weakness, no generalized weakness, no tingling, no numbness, no tremor(s), no abnormal movements, no headache(s), no abnormal speech and no confusion Psychiatric: no depression, no irritability, no anxiety, no difficulty concentrating, no confusion and no hallucinations Endocrine: no fatigue and no flushing Hematologic / Lymphatic: no easy bleeding and no easy bruising Allergy / Immunological: no urticaria and no problem reported Exam (Neuro) Physical Exam: The patient is right-handed. The patient is awake, alert, and attentive. Speech is normal without any aphasia or dysarthria. mood and affect are normal appropriate. He has somewhat poor short-term memory. He has impaired long-term memory also. He is pleasant and cooperative otherwise. Pupils are 4 mm bilaterally and reactive to light. Extraocular eye muscles are intact without nystagmus. Visual acuity and visual giraldo seem normal grossly to confrontation. There are no deficits to sensation in the face in all 3 distributions of the fifth cranial nerve bilaterally. Corneal reflexes are positive bilaterally. Facial strength and symmetry was normal bilaterally. Hearing seems normal bilaterally. Palate moves well without asymmetry. There is normal sternocleidomastoid and trapezius (shoulder shrug) strength bilaterally. Tongue is midline with good strength bilaterally. Neck has a full range of motion without discomfort. There are no cervical bruits bilaterally. There are no cranial or ocular bruits. Heart is without murmur. There is a regular rhythm and rate. Cervical, thoracic, and lumbar spine are nontender to palpation. Gait Was not tested but stance sitting up in bed was somewhat poor, and he needed the assistance of 1. With outstretched arms there is no drift. There are no resting, postural, or action tremors. There is no ataxia with finger to nose testing. There is good facility in the hands. No other abnormal involuntary movements are noted. Motor strength is 5/5 diffusely in the arms bilaterally including deltoids, biceps, triceps, brachioradialis, wrist flexors and extensors, employee services manager, and intrinsic hand muscles. Motor strength is 5/5 diffusely in the legs bilaterally including hip flexors, quadriceps, hamstrings, gastrocnemius, tibialis anterior, tibialis posterior, and Peroneii muscles. Toe extensors are normal and there is good bulk in the extensor digitorum brevis muscles bilaterally. The limbs have good tone without rigidity or spasticity. There is no atrophy noted in the muscles. Muscle bulk is normal, there is no tenderness to palpation, no myotonia to percussion, and no fasciculations seen. Sensory examination is intact to touch and pin throughout all 4 limbs diffusely. Reflexes are 2/4 in the biceps, triceps, brachioradialis, quadriceps, and Achilles tendons bilaterally. There is no clonus bilaterally. Toes are upgoing with plantar stimulation bilaterally. Peripheral pulses are present and of normal quality distally in all 4 limbs. There is no peripheral edema noted in the limbs. Results & Data ([facility]) Vital Signs (Past 12 Hours) Vital Signs Temp Pulse Pulse Resp BP BP BP 09/01/22 11:16 36.2 C L 67 20 178/91 H 09/01/22 11:16 64 09/01/22 10:10 71 21 09/01/22 10:00 70 16 09/01/22 09:50 66 16 09/01/22 09:40 65 15 09/01/22 09:30 63 16 09/01/22 09:20 86 22 09/01/22 09:10 69 19 09/01/22 09:00 62 13 09/01/22 08:50 61 13 09/01/22 08:40 62 14 09/01/22 10:16 158/93 H 09/01/22 08:30 61 14 09/01/22 08:20 57 L 14 09/01/22 08:10 61 15 09/01/22 08:00 69 16 09/01/22 07:50 66 16 09/01/22 07:40 59 L 18 09/01/22 07:30 60 16 09/01/22 07:30 189/98 H 09/01/22 07:23 72 09/01/22 07:10 64 15 09/01/22 07:00 64 17 09/01/22 07:00 174/99 H 09/01/22 06:50 65 18 09/01/22 06:42 159/87 H 09/01/22 06:42 65 17 09/01/22 06:40 62 14 09/01/22 06:30 62 15 159/87 H 09/01/22 05:10 72 18 09/01/22 05:07 73 17 09/01/22 05:57 09/01/22 05:08 09/01/22 05:08 36.5 C 77 18 175/101 H Pulse Ox O2 Del Method O2 Flow Rate 09/01/22 11:16 95 Room Air 09/01/22 11:16 09/01/22 10:10 09/01/22 10:00 09/01/22 09:50 09/01/22 09:40 09/01/22 09:30 09/01/22 09:20 09/01/22 09:10 09/01/22 09:00 09/01/22 08:50 09/01/22 08:40 09/01/22 10:16 09/01/22 08:30 96 09/01/22 08:20 09/01/22 08:10 09/01/22 08:00 09/01/22 07:50 09/01/22 07:40 09/01/22 07:30 09/01/22 07:30 09/01/22 07:23 09/01/22 07:10 94 09/01/22 07:00 93 09/01/22 07:00 09/01/22 06:50 95 09/01/22 06:42 09/01/22 06:42 94 09/01/22 06:40 09/01/22 06:30 92 Room Air 09/01/22 05:10 93 Room Air 09/01/22 05:07 92 Room Air 09/01/22 05:57 Room Air 96 09/01/22 05:08 Room Air 09/01/22 05:08 98 Room Air PG Care Time/CCT Total # of Minutes Spent Total Time Spent with Patient: Total time spent is greater than 50% in coordination of care (as documented) at patient's floor/unit and/or counseling patient: Coding Level of Care Code 16634 Initial Inpt Care Lvl 3 Diagnoses Acute CVA (cerebrovascular accident) I63.9 Carotid stenosis, symptomatic, with infarction I63.239 Vertebral artery occlusion I65.09 Memory impairment R41.3 DM2 (diabetes mellitus, type 2) E11.9 HTN (hypertension) I10 Time Spent (min) 100
[2022-09-01] MEDS: LANTUS PER UNIT CHARGE SQ SCH (21:15)
[2022-09-01] MEDS ORDERED: OLANZapine 10 MG/2.1 ML SDV IM STA (22:57)
[2022-09-02] MEDS: HEPARIN SOD 5,000 UNIT/0.5 ML VIAL SQ SCH ×3 (06:04→21:01)
[2022-09-02 07:29] LABS: BUN Creatinine Ratio 17.1 (10-20); Creatinine Clr Calc Pharmacy 82.9 ml/min; Est GFR (African American) 104.2 ml/min; Est GFR (Non-African American) 89.9 ml/min; Magnesium 2.1 mg/dl (1.7-2.4); Phosphorus 3.9 mg/dl (2.5-4.9); Potassium 3.5 mmol/L (3.5-5.1)
[2022-09-02] MEDS ORDERED: POTASSIUM CHLORIDE CRTAB 20 MEQ TABCR PO STA (07:39)
[2022-09-02] MEDS: ASPIRIN 81 MG ECTAB PO SCH (08:36)
[2022-09-02] MEDS: ATORVASTATIN 40 MG TAB PO SCH (08:36)
[2022-09-02] MEDS: CLOPIDOGREL BISULFATE 75 MG TAB PO SCH (08:36)
[2022-09-02] MEDS: CITALOPRAM 20 MG TAB PO SCH (08:36)
[2022-09-02] MEDS: INSULIN ASPART PER UNIT SC SCH ×4 (08:37→20:34)
[2022-09-02] MEDS ORDERED: SODIUM CHLORIDE 0.9% 1000ML 1,000 ML IV ONE (12:46)
--- NOTE | 2022-09-02 13:35 | Hospitalist Progress Note ---
Date of Service September 02, 2022 Assessment & Plan (1) Acute CVA (cerebrovascular accident): Plan: - new complaint of right hand weakness - CTA head and neck stable from prior exam - MRI brain with new punctate focus representing acute infarct in frontal lobe - severe stenosis extensively throughout intracranial vasculature - will need to follow up with OP NSG appointment - symptoms mostly resolved - continue on aspirin, plavix, high dose statin - neurology consulted - recs appreciated - continue antiplatelet and statin - needs NSG eval - has appointment at [facility] 09/04/2022 - PT/OT - rehab or home with HH - [employer] eval - regular diet - telemetry monitoring (2) H/O: CVA (cerebrovascular accident): Plan: - multiple foci seen on MRI and redemonstrated on repeat MRI brain 09/01/2022 with new focus in right frontal lobe indicating acute infarct in that area - also in the setting of severe carotid and vertebral artery stenosis - was for NSG follow up 09/04/2022 - will keep appointment - here with new symptoms as above - continue aspirin, statin, plavix as above - neurology consulted - see above - PT/OT - see above (3) Carotid stenosis, symptomatic, with infarction: Plan: - noted again on CTA head and neck - neurology consulted - aspirin, statin, plavix - NSG follow up 09/04/2022 (4) Memory impairment: Plan: - noted - at baseline (5) HTN (hypertension): Plan: - not on meds at this time - continue without BP meds - permissive hypertension for now - will need permissive hypertension as patient has severe stenosis and minimal collaterals - further BP lowering could worsen neurologic symptoms and trigger watershed stroke as in prior instances (6) DM2 (diabetes mellitus, type 2): Plan: - hgb A1c 7.6% 07/2022 - lantus 23 units qhs - ISS while inpatient - will need metformin on discharge Plan DVT ppx: heparin SC Code Status: Full Code Dispo: PCU Terry Hernandez MD Hospital Medicine Admission and Anticipated Discharge Date Admission Date: September 01, 2022 Subjective Patient with DM2, HTN, mild dementia, h/o CVA, carotid artery disease with recent admission for CVA who presented with right had numbness and weakness that was similar to prior. MRI at the time showed acute vs subacute infarct in centrum semiovale watershed of left frontal and parietal lobes with few tiny foci in left occipital and single focus in superior aspect of right frontal lobe and CTA head and neck with progression of severe stenosis of petrous portion of left internal carotid artery with 80-90% stenosis. Started on Aspirin, Plavix, statin at the time and had NSG consultation with plan to follow up outpatient. Presented with right hand weakness and numbness, now resolved. CTA head and neck this admission with similar stenosis pattern without progression. MRI brain showed new acute infarct in with punctate focus in right frontal lobe that was new from prior study. Continued on aspirin, statin, Plavix. Neurology consulted, no further intervention. Patient reports improvement in numbness and weakness in right hand, denies any new deficits. Patient with word finding difficulty. They have also noticed a stepwise decline over last several months to year. Patient denies chest pain, shortness of breath, n/v/d, abdominal pain, dysuria. Review of Systems Review of Systems: All systems reviewed & are unremarkable except as noted in Subjective Physical Exam Physical Exam: GENERAL: The patient is moderate built, not in acute distress. HEENT: Pupils equal, round, and reactive to light. Oral mucosa moist. NECK: No JVD. No neck masses. CARDIOVASCULAR: S1 and S2 heard. Regular rate and rhythm. No murmur. No gallop. RESPIRATORY SYSTEM: Normal AP diameter. No accessory muscle use. No wheezing. No crackles. ABDOMEN: Soft, bowel sounds present, nontender, and no distention. CENTRAL NERVOUS SYSTEM: Alert and oriented to name and place. Remote memory seems intact. Insight is okay. Obeys simple commands. No facial droop. Can clench his teeth. Power is 5/5 in all extremities. Hand core piler equal on right and lef. No pronator drift. Sensation seems to be intact. some word finding difficulty EXTREMITIES: No edema. No erythema. Results & Data Results & Data ([facility]) Vital Signs (Past 12 Hours) Vital Signs Temp Pulse Pulse Resp BP Pulse Ox Pulse Ox 09/02/22 11:16 97 09/02/22 07:37 36.5 C 56 L 18 135/83 94 09/02/22 07:00 55 L 09/02/22 02:52 36.8 C 69 16 140/89 96 O2 Del Method O2 Del Method 09/02/22 11:16 Room Air 09/02/22 07:37 Room Air 11/12/22 07:00 09/02/22 02:52 Room Air Diagnostic Findings Laboratory Results WBC 7.40 K/ul (4.8-10.8) 09/01/22 05:18 RBC 4.63 M/uL (4.63-6.08) 09/01/22 05:18 Hgb 14.9 g/dl (14.0-18.0) 09/01/22 05:18 Hct 42.4 % (40.1-51.0) 09/01/22 05:18 MCV 91.6 fL (80.0-100.0) 09/01/22 05:18 MCH 32.2 pg (25.0-34.0) 09/01/22 05:18 MCHC 35.1 g/dL (32.0-36.0) 09/01/22 05:18 RDW Std Deviation 41.4 fL (36.4-46.3) 09/01/22 05:18 RDW Coeff of Nikita 12.5 % (11.5-14.5) 09/01/22 05:18 Plt Count 206 K/uL (130-400) 09/01/22 05:18 MPV 9.3 fL (9.4-12.4) L 09/01/22 05:18 Immature Gran % (Auto) 0.4 % 09/01/22 05:18 Neut % (Auto) 64.0 % 09/01/22 05:18 Lymph % (Auto) 24.2 % 09/01/22 05:18 [place] % (Auto) 8.9 % 09/01/22 05:18 Eos % (Auto) 1.8 % 09/01/22 05:18 Baso % (Auto) 0.7 % 09/01/22 05:18 Neut # (Auto) 4.74 K/uL (1.4-6.5) 09/01/22 05:18 Lymph # (Auto) 1.79 K/uL (1.2-3.4) 09/01/22 05:18 [place] # (Auto) 0.66 K/uL (0.24-0.82) 09/01/22 05:18 Eos # (Auto) 0.13 K/uL (0-0.50) 09/01/22 05:18 Baso # (Auto) 0.05 K/uL (0-0.2) 09/01/22 05:18 Immature Gran # (Auto) 0.03 K/uL (0.00-0.02) H 09/01/22 05:18 PT 10.6 Seconds (9.0-12.0) 09/01/22 05:18 INR 1.0 (0.9-1.1) 09/01/22 05:18 APTT 25.1 Seconds (21.0-31.0) 09/01/22 05:18 PTT Ratio 0.9 09/01/22 05:18 Sodium 139 mmol/L (136-145) 09/02/22 06:43 Potassium 3.5 mmol/L (3.5-5.1) 09/02/22 06:43 Chloride 106 mmol/L (98-107) 09/02/22 06:43 Carbon Dioxide 28 mmol/L (21-32) 09/02/22 06:43 Anion Gap 5 (3-11) 09/02/22 06:43 BUN 13 mg/dl (6-23) 09/02/22 06:43 Creatinine 0.76 mg/dl (0.6-1.4) 09/02/22 06:43 Est Cr Clr Drug Dosing 82.9 ml/min 09/02/22 06:43 Est GFR ( Amer) 104.2 ml/min 09/02/22 06:43 Est GFR (Non-Af Amer) 89.9 ml/min 09/02/22 06:43 BUN/Creatinine Ratio 17.1 (10-20) 09/02/22 06:43 Glucose 93 mg/dl (70-99(Fasting)) 09/02/22 06:43 POC Glucose 179 mg/dl (70-99) H 09/02/22 11:38 Estimat Average Glucose 166 mg/dl 09/01/22 15:28 Hemoglobin A1c 7.4 % (4.5-5.6) H 09/01/22 15:28 Calcium 9.0 mg/dl (8.5-10.1) 09/02/22 06:43 Phosphorus 3.9 mg/dl (2.5-4.9) 09/02/22 06:43 Magnesium 2.1 mg/dl (1.7-2.4) 09/02/22 06:43 Total Bilirubin 0.6 mg/dl (0.2-1.0) 09/01/22 05:18 AST 12 U/L (13-39) L 09/01/22 05:18 ALT 13 U/L (7-52) 09/01/22 05:18 Alkaline Phosphatase 36 U/L (34-104) 09/01/22 05:18 Troponin I High Sens 8.9 pg/ml (0-20) 09/01/22 05:18 Total Protein 6.9 gm/dl (6.0-8.3) 09/01/22 05:18 Albumin 4.1 gm/dl (3.4-5.0) 09/01/22 05:18 Globulin 2.8 gm/dl (2.5-4.0) 09/01/22 05:18 Albumin/Globulin Ratio 1.5 (0.9-2) 09/01/22 05:18 Triglycerides 187 mg/dl (0-150) H 09/01/22 15:28 Cholesterol 243 mg/dl (0-200) H 09/01/22 15:28 LDL Cholesterol, Calc 165 mg/dl 09/01/22 15:28 VLDL Cholesterol, Calc 37 mg/dl (0-30) H 09/01/22 15:28 HDL Cholesterol 41 mg/dl 09/01/22 15:28 Cholesterol/HDL Ratio 5.9 (0-5) H 09/01/22 15:28 SARS-CoV-2, RNA, NAAT NEGATIVE (NEGATIVE) 09/01/22 06:[address] 09/01/22 05:16 CT SCAN OF THE BRAIN WITHOUT IV CONTRAST CLINICAL HISTORY: Strokelike symptoms. COMPARISON STUDY: CT of the brain dated 07/25/2022. TECHNIQUE: Unenhanced axial CT scan of the brain is performed from the vertex to the skull base. A dose lowering technique was utilized adhering to the principles of ALARA. FINDINGS: Brain parenchyma: There is age-related involutional change noting mild to moderate subcortical and periventricular microangiopathic disease. There is no hemorrhage, mass effect, or evidence of acute territorial ischemia by CT criteria. Small chronic lacunar infarct is noted in the right thalamus. Cuadra- white matter differentiation is preserved. No extra-axial fluid collection is seen. Ventricles, sulci, cisterns: Prominent secondary to involutional change. Intracranial vasculature: There is atherosclerotic calcification of the cavernous carotid and vertebral arteries. Calvarium: Unremarkable. Sinuses and mastoids: The visualized paranasal sinuses are clear. The mastoid air cells are well pneumatized. Orbits: The bony orbits are grossly intact. IMPRESSION: There is no hemorrhage, mass effect, or evidence of acute territorial ischemia by CT criteria. ACT 112: Negative or not required by law. Electronically signed by: Krishan Gonzalez M.D. 09/01/2022 6:32 AM Head CTA 09/01/22 05:16 CTA ANGIOGRAPHY OF THE HEAD CLINICAL HISTORY: Stroke Like Symptoms COMPARISON STUDY: CTA of the head July 25, 2022. TECHNIQUE: Helical axial images of the head were obtained following uneventful intravenous administration of 103 cc of Optiray. Sagittal and coronal reconstructions were viewed as well as maximal intensity projections on an independent 3-D workstation. Automated exposure control was utilized for the study. A dose lowering technique was utilized adhering to the principles of ALARA. FINDINGS: Please note that the head CT will be reported separately. Severe stenosis of the petrous portion of the left internal carotid artery is unchanged. There is no intracranial aneurysm. No abrupt vessel occlusion within the anterior circulation is noted. There is moderate plaque within the bilateral cavernous carotids without stenosis. Mild multifocal stenoses within the left MCA are unchanged. Severe stenosis of the intracranial portion the right vertebral artery is unchanged. Occlusion of the intracranial portion of the left vertebral artery is similar to prior exam. Severe central stenoses within the basilar artery are unchanged as well. There is persistence of the left posterior cerebral artery. Severe stenoses within the left posterior cerebral artery noted. There are moderate stenoses within the right posterior cerebral artery. IMPRESSION: 1. No significant change since CTA of July 25, 2022. 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 2. Severe multifocal stenoses within the intracranial vessels. Severe stenosis of the petrous portion of the left internal carotid artery is unchanged. 3. No abrupt vessel occlusion within the anterior circulation. ACT 112: Negative or not required by law. Electronically signed by: Chevy Tobias M.D. 09/01/2022 6:34 AM Neck CTA 09/01/22 05:16 CT ANGIOGRAPHY OF THE NECK WITH CONTRAST CLINICAL HISTORY: Stroke Like Symptoms COMPARISON STUDY: CTA of the neck July 06, 2020 and July 25, 2022. Technique: CT angiography of the carotid and vertebral arteries was obtained using Optiray and 3D reconstruction on an independent workstation. NASCET criteria was utilized. Automated exposure control was utilized for the study. A dose lowering technique was utilized adhering to the principles of ALARA. CT DOSE: 1265.05 mGy.cm Findings: Visualized lung apices are unremarkable. There is no cervical lymphadenopathy. There is no acute cervical spine fracture. There is mild plaque within the proximal bilateral internal carotid arteries without stenosis. Severe stenosis of the petrous portion of the left cavernous carotid is unchanged since CT of July 25, 2022. The right vertebral artery is dominant. The left vertebral artery is diminutive. This is unchanged. The stenosis of the distal right vertebral artery and occlusion of the distal left vertebral artery is better depicted on the CT of the head which will be reported separately. There is no dissection within the neck. IMPRESSION: 1. Mild plaque within the proximal bilateral cervical internal carotid arteries without stenosis. 2. No dissection within the neck. 3. No change in severe stenosis of the petrous portion of the left internal carotid artery. ACT 112: Negative or not required by law. Electronically signed by: Chevy Tobias M.D. 09/01/2022 6:29 AM Chest X-Ray 09/01/22 06:00 XR chest 1V portable CLINICAL HISTORY: Altered mental status. COMPARISON STUDY: Chest radiograph July 25, 2022. FINDINGS: Lung volumes are normal. Lungs are clear. There is no pneumothorax or pleural effusion. Cardiac size is normal. Mediastinal contours are normal. There is no evidence for pulmonary edema. IMPRESSION: No acute cardiopulmonary findings. ACT 112: Negative or not required by law. Electronically signed by: Chevy Tobias M.D. 09/01/2022 6:37 AM Brain MRI 09/01/22 11:16 Brain MRI WITH AND WITHOUT CONTRAST HISTORY: Right-sided weakness. Stroke symptoms TECHNIQUE: Multiplanar multisequence MRI of the brain was performed both before and after the intravenous administration of contrast. COMPARISON STUDY: Head CT 09/01/2022. Brain MRI 07/26/2022. FINDINGS: There again noted scattered subcentimeter foci of restricted diffusion seen within the watershed distribution of the left frontal and parietal lobes. This demonstrates a similar pattern compared to the prior study but has slightly progressed. There is also a punctate focus of restricted diffusion consistent with an acute infarct within the right frontal lobe which is new from the prior study. There is no mass, hematoma, or midline shift. Mild atrophy and microvascular ischemic changes are again noted. Occluded distal left vertebral artery, unchanged. The remaining major vascular flow voids at the skull base are well-maintained. The paranasal sinuses and mastoid air cells are clear. The orbits are unremarkable. Stable small developmental venous anomaly within the le ft high convexity. Otherwise, no abnormal enhancement within the brain. IMPRESSION: There again noted scattered subcentimeter foci of restricted diffusion seen within the watershed distribution of the left frontal and parietal lobes consistent with acute infarcts. This demonstrates a similar pattern compared to the prior study but has slightly progressed. There is also a punctate focus of restricted diffusion consistent with an acute infarct within the right frontal lobe which is new from the prior study. ACT 112: Negative or not required by law. Electronically signed by: Vidal Sears M.D. 09/01/2022 12:48 PM Medications Administered Current Inpatient Medications Acetaminophen (Acetaminophen 325 Mg Tab) 650 mg PO Q4H PRN PRN Reason: Pain or Fever Stop: 10/01/22 11:15 Last Admin: 09/02/22 00:24 Dose: 650 mg Aspirin (Aspirin 81 Mg Ectab) 81 mg PO DAILY [facility] Stop: 10/01/22 11:15 Last Admin: 09/02/22 08:36 Dose: 81 mg Atorvastatin Calcium (Atorvastatin 40 Mg Tab) 80 mg PO DAILY [facility] Stop: 10/01/22 11:15 Last Admin: 09/02/22 08:36 Dose: 80 mg Citalopram Hydrobromide (Citalopram 20 Mg Tab) 5 mg PO DAILY [facility] Stop: 10/02/22 08:59 Last Admin: 09/02/22 08:36 Dose: 5 mg Clopidogrel Bisulfate (Clopidogrel Bisulfate 75 Mg Tab) 75 mg PO QAM [facility] Stop: 10/01/22 11:15 Last Admin: 09/02/22 08:36 Dose: 75 mg Heparin Sodium (Porcine) (Heparin Sod 5,000 Unit/0.5 Ml Vial) 5,000 units SQ Q8 [facility]O Stop: 10/01/22 13:59 Last Admin: 09/02/22 06:04 Dose: 5,000 units Sodium Chloride (Nss 1000ml) 1,000 mls @ 200 mls/hr IV .Q5H ONE Stop: 09/02/22 17:45 Insulin Aspart (Insulin Aspart Per Unit) 0 units SC ACHS [facility] Stop: 10/01/22 11:15 Last Admin: 09/02/22 11:53 Dose: 4 units Insulin Glargine (Lantus Per Unit Charge) 23 units SQ HS [facility] Stop: 10/01/22 20:59 Last Admin: 09/01/22 21:15 Dose: 23 units Miscellaneous Information (Pharmacist Discharge Med Rec Consult) 1 each N/A UD PRN PRN Reason: Consult Stop: 10/01/22 11:15 Nitroglycerin (Nitroglycerin Sl 0.4 Mg/Tab Tab) 0.4 mg SL UD PRN PRN Reason: Chest Pain Stop: 10/01/22 11:15 Polyethylene Glycol (Polyethylene (Miralax) 17 Gm Pack) 17 gm PO DAILY PRN PRN Reason: Constipation Stop: 10/01/22 11:15
[2022-09-02] MEDS ORDERED: MIDODRINE HCL 2.5 MG TAB PO PRN (17:46)
[2022-09-02] MEDS: LANTUS PER UNIT CHARGE SQ SCH (20:35)
[2022-09-03] MEDS: HEPARIN SOD 5,000 UNIT/0.5 ML VIAL SQ SCH ×3 (05:24→21:28)
[2022-09-03] MEDS: INSULIN ASPART PER UNIT SC SCH ×4 (07:55→21:27)
[2022-09-03] MEDS: OLANZapine ZYDIS 5 MG ORALLY DIS. TAB PO PRN ×2 (08:20→23:19)
[2022-09-03] MEDS: ASPIRIN 81 MG ECTAB PO SCH (08:20)
[2022-09-03] MEDS: CLOPIDOGREL BISULFATE 75 MG TAB PO SCH (08:20)
[2022-09-03] MEDS: ATORVASTATIN 40 MG TAB PO SCH (08:20)
[2022-09-03] MEDS: CITALOPRAM 20 MG TAB PO SCH (08:20)
--- NOTE | 2022-09-03 13:06 | Hospitalist Progress Note ---
Date of Service September 03, 2022 Assessment & Plan (1) Acute CVA (cerebrovascular accident): Plan: - new complaint of right hand weakness - CTA head and neck stable from prior exam - MRI brain with new punctate focus representing acute infarct in frontal lobe - severe stenosis extensively throughout intracranial vasculature - will need to follow up with OP NSG appointment - symptoms mostly resolved - continue on aspirin, plavix, high dose statin - neurology consulted - recs appreciated - continue antiplatelet and statin - needs NSG eval - has appointment at [facility] 09/04/2022 - PT/OT - rehab or home with - will discharge 09/04/2022 and patient will go with his to NSG appointment at [facility] at that time - [employer] eval - regular diet - telemetry monitoring (2) H/O: CVA (cerebrovascular accident): Plan: - multiple foci seen on MRI and redemonstrated on repeat MRI brain 09/01/2022 with new focus in right frontal lobe indicating acute infarct in that area - also in the setting of severe carotid and vertebral artery stenosis - was for NSG follow up 09/04/2022 - will keep appointment - here with new symptoms as above - continue aspirin, statin, plavix as above - neurology consulted - see above - PT/OT - see above (3) Carotid stenosis, symptomatic, with infarction: Plan: - noted again on CTA head and neck - neurology consulted - aspirin, statin, plavix - NSG follow up 09/04/2022 - started on midodrine PRN to keep MAP>100 if possible (4) Memory impairment: Plan: - noted - at baseline (5) HTN (hypertension): Plan: - not on meds at this time - continue without BP meds - permissive hypertension for now - will need permissive hypertension as patient has severe stenosis and minimal collaterals - further BP lowering could worsen neurologic symptoms and trigger watershed stroke as in prior instances (6) DM2 (diabetes mellitus, type 2): Plan: - hgb A1c 7.6% 07/2022 - lantus 23 units qhs - ISS while inpatient - will need metformin on discharge Plan DVT ppx: heparin SC Code Status: Full Code Dispo: PCU Terry Hernandez MD [facility] Medicine Admission and Anticipated Discharge Date Admission Date: September 01, 2022 Subjective Patient with DM2, HTN, mild dementia, h/o CVA, carotid artery disease with recent admission for CVA who presented with right had numbness and weakness that was similar to prior. MRI at the time showed acute vs subacute infarct in centrum semiovale watershed of left frontal and parietal lobes with few tiny foci in left occipital and single focus in superior aspect of right frontal lobe and CTA head and neck with progression of severe stenosis of petrous portion of left internal carotid artery with 80-90% stenosis. Started on Aspirin, Plavix, statin at the time and had NSG consultation with plan to follow up outpatient. Presented with right hand weakness and numbness, now resolved. CTA head and neck this admission with similar stenosis pattern without progression. MRI brain showed new acute infarct in with punctate focus in right frontal lobe that was new from prior study. Continued on aspirin, statin, Plavix. Neurology consulted, no further intervention. Patient denies any complaints today. Patient with word finding difficulty but able to answer simple questions appropriately. Patient denies chest pain, shortness of breath, n/v/d, abdominal pain, dysuria. Review of Systems Review of Systems: All systems reviewed & are unremarkable except as noted in Subjective Physical Exam Physical Exam: GENERAL: The patient is moderate built, not in acute distress. HEENT: Pupils equal, round, and reactive to light. Oral mucosa moist. NECK: No JVD. No neck masses. CARDIOVASCULAR: S1 and S2 heard. Regular rate and rhythm. No murmur. No gallop. RESPIRATORY SYSTEM: Normal AP diameter. No accessory muscle use. No wheezing. No crackles. ABDOMEN: Soft, bowel sounds present, nontender, and no distention. CENTRAL NERVOUS SYSTEM: Alert and oriented to name and place. Remote memory seems intact. Insight is okay. Obeys simple commands. No facial droop. Can clench his teeth. Power is 5/5 in all extremities. Hand see wheeler equal on right and lef. No pronator drift. Sensation seems to be intact. some word finding difficulty EXTREMITIES: No edema. No erythema. Results & Data Results & Data ([facility]) Vital Signs (Past 12 Hours) Vital Signs Temp Pulse Pulse Resp BP Pulse Ox Pulse Ox 09/03/22 11:34 36.4 C L 57 L 18 137/85 96 09/03/22 11:00 97 09/03/22 07:33 36.5 C 50 L 18 135/75 94 09/03/22 07:00 55 L 09/03/22 02:05 53 L 16 137/74 95 O2 Del Method O2 Del Method 09/03/22 11:34 Room Air 09/03/22 11:00 Room Air 09/03/22 07:33 Room Air 09/03/22 07:00 09/03/22 02:05 Room Air Diagnostic Findings Laboratory Results WBC 7.40 K/ul (4.8-10.8) 09/01/22 05:18 RBC 4.63 M/uL (4.63-6.08) 09/01/22 05:18 Hgb 14.9 g/dl (14.0-18.0) 09/01/22 05:18 Hct 42.4 % (40.1-51.0) 09/01/22 05:18 MCV 91.6 fL (80.0-100.0) 09/01/22 05:18 MCH 32.2 pg (25.0-34.0) 09/01/22 05:18 MCHC 35.1 g/dL (32.0-36.0) 09/01/22 05:18 RDW Std Deviation 41.4 fL (36.4-46.3) 09/01/22 05:18 RDW Coeff of Nikita 12.5 % (11.5-14.5) 09/01/22 05:18 Plt Count 206 K/uL (130-400) 09/01/22 05:18 MPV 9.3 fL (9.4-12.4) L 09/01/22 05:18 Immature Gran % (Auto) 0.4 % 09/01/22 05:18 Neut % (Auto) 64.0 % 09/01/22 05:18 Lymph % (Auto) 24.2 % 09/01/22 05:18 [place] % (Auto) 8.9 % 09/01/22 05:18 Eos % (Auto) 1.8 % 09/01/22 05:18 Baso % (Auto) 0.7 % 09/01/22 05:18 Neut # (Auto) 4.74 K/uL (1.4-6.5) 09/01/22 05:18 Lymph # (Auto) 1.79 K/uL (1.2-3.4) 09/01/22 05:18 [place] # (Auto) 0.66 K/uL (0.24-0.82) 09/01/22 05:18 Eos # (Auto) 0.13 K/uL (0-0.50) 09/01/22 05:18 Baso # (Auto) 0.05 K/uL (0-0.2) 09/01/22 05:18 Immature Gran # (Auto) 0.03 K/uL (0.00-0.02) H 09/01/22 05:18 PT 10.6 Seconds (9.0-12.0) 09/01/22 05:18 INR 1.0 (0.9-1.1) 09/01/22 05:18 APTT 25.1 Seconds (21.0-31.0) 09/01/22 05:18 PTT Ratio 0.9 09/01/22 05:18 Sodium 139 mmol/L (136-145) 09/02/22 06:43 Potassium 3.5 mmol/L (3.5-5.1) 09/02/22 06:43 Chloride 106 mmol/L (98-107) 09/02/22 06:43 Carbon Dioxide 28 mmol/L (21-32) 09/02/22 06:43 Anion Gap 5 (3-11) 09/02/22 06:43 BUN 13 mg/dl (6-23) 09/02/22 06:43 Creatinine 0.76 mg/dl (0.6-1.4) 09/02/22 06:43 Est Cr Clr Drug Dosing 82.9 ml/min 09/02/22 06:43 Est GFR ( Amer) 104.2 ml/min 09/02/22 06:43 Est GFR (Non-Af Amer) 89.9 ml/min 09/02/22 06:43 BUN/Creatinine Ratio 17.1 (10-20) 09/02/22 06:43 Glucose 93 mg/dl (70-99(Fasting)) 09/02/22 06:43 POC Glucose 121 mg/dl (70-99) H 09/03/22 11:17 Estimat Average Glucose 166 mg/dl 09/01/22 15:28 Hemoglobin A1c 7.4 % (4.5-5.6) H 09/01/22 15:28 Calcium 9.0 mg/dl (8.5-10.1) 09/02/22 06:43 Phosphorus 3.9 mg/dl (2.5-4.9) 09/02/22 06:43 Magnesium 2.1 mg/dl (1.7-2.4) 09/02/22 06:43 Total Bilirubin 0.6 mg/dl (0.2-1.0) 09/01/22 05:18 AST 12 U/L (13-39) L 09/01/22 05:18 ALT 13 U/L (7-52) 09/01/22 05:18 Alkaline Phosphatase 36 U/L (34-104) 09/01/22 05:18 Troponin I High Sens 8.9 pg/ml (0-20) 09/01/22 05:18 Total Protein 6.9 gm/dl (6.0-8.3) 09/01/22 05:18 Albumin 4.1 gm/dl (3.4-5.0) 09/01/22 05:18 Globulin 2.8 gm/dl (2.5-4.0) 09/01/22 05:18 Albumin/Globulin Ratio 1.5 (0.9-2) 09/01/22 05:18 Triglycerides 187 mg/dl (0-150) H 09/01/22 15:28 Cholesterol 243 mg/dl (0-200) H 09/01/22 15:28 LDL Cholesterol, Calc 165 mg/dl 09/01/22 15:28 VLDL Cholesterol, Calc 37 mg/dl (0-30) H 09/01/22 15:28 HDL Cholesterol 41 mg/dl 09/01/22 15:28 Cholesterol/HDL Ratio 5.9 (0-5) H 09/01/22 15:28 SARS-CoV-2, RNA, NAAT NEGATIVE (NEGATIVE) 09/01/22 06:[address] 09/01/22 05:16 CT SCAN OF THE BRAIN WITHOUT IV CONTRAST CLINICAL HISTORY: Strokelike symptoms. COMPARISON STUDY: CT of the brain dated 07/25/2022. TECHNIQUE: Unenhanced axial CT scan of the brain is performed from the vertex to the skull base. A dose lowering technique was utilized adhering to the principles of ALARA. FINDINGS: Brain parenchyma: There is age-related involutional change noting mild to moderate subcortical and periventricular microangiopathic disease. There is no hemorrhage, mass effect, or evidence of acute territorial ischemia by CT criteria. Small chronic lacunar infarct is noted in the right thalamus. [place]- white matter differentiation is preserved. No extra-axial fluid collection is seen. Ventricles, sulci, cisterns: Prominent secondary to involutional change. Intracranial vasculature: There is atherosclerotic calcification of the cavernous carotid and vertebral arteries. Calvarium: Unremarkable. Sinuses and mastoids: The visualized paranasal sinuses are clear. The mastoid air cells are well pneumatized. Orbits: The bony orbits are grossly intact. IMPRESSION: There is no hemorrhage, mass effect, or evidence of acute territorial ischemia by CT criteria. ACT 112: Negative or not required by law. Electronically signed by: Krishan Gonzalez M.D. 09/01/2022 6:32 AM Head CTA 09/01/22 05:16 CTA ANGIOGRAPHY OF THE HEAD CLINICAL HISTORY: Stroke Like Symptoms COMPARISON STUDY: CTA of the head July 25, 2022. TECHNIQUE: Helical axial images of the head were obtained following uneventful intravenous administration of 103 cc of Optiray. Sagittal and coronal reconstructions were viewed as well as maximal intensity projections on an independent 3-D workstation. Automated exposure control was utilized for the study. A dose lowering technique was utilized adhering to the principles of ALARA. FINDINGS: Please note that the head CT will be reported separately. Severe stenosis of the petrous portion of the left internal carotid artery is unc hanged. There is no intracranial aneurysm. No abrupt vessel occlusion within the anterior circulation is noted. There is moderate plaque within the bilateral cavernous carotids without stenosis. Mild multifocal stenoses within the left MCA are unchanged. Severe stenosis of the intracranial portion the right vertebral artery is unchanged. Occlusion of the intracranial portion of the left vertebral artery is similar to prior exam. Severe central stenoses within the basilar artery are unchanged as well. There is persistence of the left posterior cerebral artery. Severe stenoses within the left posterior cerebral artery noted. There are moderate stenoses within the right posterior cerebral artery. IMPRESSION: 1. No significant change since CTA of July 25, 2022. 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 2. Severe multifocal stenoses within the intracranial vessels. Severe stenosis of the petrous portion of the left internal carotid artery is unchanged. 3. No abrupt vessel occlusion within the anterior circulation. ACT 112: Negative or not required by law. Electronically signed by: Chevy Tobias M.D. 09/01/2022 6:34 AM Neck CTA 09/01/22 05:16 CT ANGIOGRAPHY OF THE NECK WITH CONTRAST CLINICAL HISTORY: Stroke Like Symptoms COMPARISON STUDY: CTA of the neck July 06, 2020 and July 25, 2022. Technique: CT angiography of the carotid and vertebral arteries was obtained using Optiray and 3D reconstruction on an independent workstation. NASCET criteria was utilized. Automated exposure control was utilized for the study. A dose lowering technique was utilized adhering to the principles of ALARA. CT DOSE: 1265.05 mGy.cm Findings: Visualized lung apices are unremarkable. There is no cervical lymphadenopathy. There is no acute cervical spine fracture. There is mild plaque within the proximal bilateral internal carotid arteries without stenosis. Severe stenosis of the petrous portion of the left cavernous carotid is unchanged since CT of July 25, 2022. The right vertebral artery is dominant. The left vertebral artery is diminutive. This is unchanged. The stenosis of the distal right vertebral artery and occlusion of the distal left vertebral artery is better depicted on the CT of the head which will be reported separately. There is no dissection within the neck. IMPRESSION: 1. Mild plaque within the proximal bilateral cervical internal carotid arteries without stenosis. 2. No dissection within the neck. 3. No change in severe stenosis of the petrous portion of the left internal carotid artery. ACT 112: Negative or not required by law. Electronically signed by: Chevy Tobias M.D. 09/01/2022 6:29 AM Chest X-Ray 09/01/22 06:00 XR chest 1V portable CLINICAL HISTORY: Altered mental status. COMPARISON STUDY: Chest radiograph July 25, 2022. FINDINGS: Lung volumes are normal. Lungs are clear. There is no pneumothorax or pleural effusion. Cardiac size is normal. Mediastinal contours are normal. There is no evidence for pulmonary edema. IMPRESSION: No acute cardiopulmonary findings. ACT 112: Negative or not required by law. Electronically signed by: Chevy Tobias M.D. 09/01/2022 6:37 AM Brain MRI 09/01/22 11:16 Brain MRI WITH AND WITHOUT CONTRAST HISTORY: Right-sided weakness. Stroke symptoms TECHNIQUE: Multiplanar multisequence MRI of the brain was performed both before and after the intravenous administration of contrast. COMPARISON STUDY: Head CT 09/01/2022. Brain MRI 07/26/2022. FINDINGS: There again noted scattered subcentimeter foci of restricted diffusion seen within the watershed distribution of the left frontal and parietal lobes. This demonstrates a similar pattern compared to the prior study but has slightly progressed. There is also a punctate focus of restricted diffusion consistent with an acute infarct within the right frontal lobe which is new from the prior study. There is no mass, hematoma, or midline shift. Mild atrophy and microvascular ischemic changes are again noted. Occluded distal left vertebral artery, unchanged. The remaining major vascular flow voids at the skull base are well-maintained. The paranasal sinuses and mastoid air cells are clear. The orbits are unremarkable. Stable small developmental venous anomaly within the left high convexity. Otherwise, no abnormal enhancement within the brain. IMPRESSION: There again noted scattered subcentimeter foci of restricted diffusion seen within the watershed distribution of the left frontal and parietal lobes consistent with acute infarcts. This demonstrates a similar pattern compared to the prior study but has slightly progressed. There is also a punctate focus of restricted diffusion consistent with an acute infarct within the right frontal lobe which is new from the prior study. ACT 112: Negative or not required by law. Electronically signed by: Vidal Sears M.D. 09/01/2022 12:48 PM Medications Administered Current Inpatient Medications Acetaminophen (Acetaminophen 325 Mg Tab) 650 mg PO Q4H PRN PRN Reason: Pain or Fever Stop: 10/01/22 11:15 Last Admin: 09/02/22 00:24 Dose: 650 mg Aspirin (Aspirin 81 Mg Ectab) 81 mg PO DAILY [facility] Stop: 10/01/22 11:15 Last Admin: 09/03/22 08:20 Dose: 81 mg Atorvastatin Calcium (Atorvastatin 40 Mg Tab) 80 mg PO DAILY [facility] Stop: 10/01/22 11:15 Last Admin: 09/03/22 08:20 Dose: 80 mg Citalopram Hydrobromide (Citalopram 20 Mg Tab) 5 mg PO DAILY [facility] Stop: 10/02/22 08:59 Last Admin: 09/03/22 08:20 Dose: 5 mg Clopidogrel Bisulfate (Clopidogrel Bisulfate 75 Mg Tab) 75 mg PO QAM [facility] Stop: 10/01/22 11:15 Last Admin: 09/03/22 08:20 Dose: 75 mg Heparin Sodium (Porcine) (Heparin Sod 5,000 Unit/0.5 Ml Vial) 5,000 units SQ Q8 [facility] Stop: 10/01/22 13:59 Last Admin: 09/03/22 05:24 Dose: 5,000 units Insulin Aspart (Insulin Aspart Per Unit) 0 units SC ACHS [facility] Stop: 10/01/22 11:15 Last Admin: 09/03/22 12:19 Dose: Not Given Insulin Glargine (Lantus Per Unit Charge) 23 units SQ HS [facility] Stop: 10/01/22 20:59 Last Admin: 09/02/22 20:35 Dose: 23 units Midodrine (Midodrine Hcl 2.5 Mg Tab) 2.5 mg PO TID@0800,1200,1700 PRN PRN Reason: to keep SBP >130 Stop: 10/03/22 07:59 Miscellaneous Information (Pharmacist Discharge Med Rec Consult) 1 each N/A UD PRN PRN Reason: Consult Stop: 10/01/22 11:15 Nitroglycerin (Nitroglycerin Sl 0.4 Mg/Tab Tab) 0.4 mg SL UD PRN PRN Reason: Chest Pain Stop: 10/01/22 11:15 Olanzapine (Olanzapine Zydis 5 Mg Orally Dis. Tab) 2.5 mg PO HS PRN PRN Reason: Agitation Stop: 10/03/22 20:59 Last Admin: 09/03/22 08:20 Dose: 2.5 mg Polyethylene Glycol (Polyethylene (Miralax) 17 Gm Pack) 17 gm PO DAILY PRN PRN Reason: Constipation Stop: 10/01/22 11:15
[2022-09-03] MEDS: LANTUS PER UNIT CHARGE SQ SCH (21:27)
[2022-09-03] MEDS ORDERED: LABETALOL HCL IV 5 MG/ML 20ML IV STA (23:02)
[2022-09-03] MEDS ORDERED: OLANZapine 10 MG/2.1 ML SDV IM STA (23:47)
[2022-09-04] MEDS: HEPARIN SOD 5,000 UNIT/0.5 ML VIAL SQ SCH (06:25)
[2022-09-04] MEDS ORDERED: STROKE PATIENT DISCHARGE STA (07:27)
[2022-09-04] MEDS: INSULIN ASPART PER UNIT SC SCH (07:29)
[2022-09-04] MEDS: CITALOPRAM 20 MG TAB PO SCH (08:34)
[2022-09-04] MEDS: ASPIRIN 81 MG ECTAB PO SCH (08:34)
[2022-09-04] MEDS: CLOPIDOGREL BISULFATE 75 MG TAB PO SCH (08:34)
[2022-09-04] MEDS: ATORVASTATIN 40 MG TAB PO SCH (08:34)
--- NOTE | 2022-09-04 09:17 | Neurology Progress Note ---
Date of Service September 04, 2022 Assessment & Plan (1) Acute CVA (cerebrovascular accident): (2) Carotid stenosis, symptomatic, with infarction: (3) Vertebral artery occlusion: (4) Memory impairment: (5) DM2 (diabetes mellitus, type 2): (6) HTN (hypertension): Plan This patient has multiple very small acute infarcts, mostly on the left, in a watershed distribution between the frontal and parietal lobes. He also has 1 small stroke on the right frontal white matter. There are a mix of old and new left occipital infarcts. Clinically he is doing well/stable and has no focal neurologic signs referable to stroke. He does not have meningeal signs or encephalopathy. However, the patient has a severe stenosis of the distal left internal carotid artery, occlusion of the distal left vertebral artery, and severe stenosis of the distal right vertebral artery and basilar artery. In addition, there are multifocal stenoses in intracranial vessels diffusely. This patient is not getting collateral flow and is symptomatic with even standing up (decreased perfusion pressure). Any hypotension would put him at risk for stroke. Unfortunately, significant hypertension could create infarct as well (or even hemorrhage). 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 He has multiple risk factors for stroke including diabetes and hypertension as well as former cigarette smoker and dyslipidemia. Recommendations: 1. Continue 75 mg clopidogrel daily. I am not certain that adding aspirin will do anything positive in this case. Clopidogrel should help keep him from getting small vessel ischemic disease and closing arterial stenoses. 2. The escobedo to stroke prevention in this patient is maintaining cerebral perfusion pressure and allowing permissive hypertension. I would think a mean arterial pressure of 110 (max 115) would be ideal (not lower than 100). 3. Avoid significant hypertension however as this could lead to stroke and hemorrhage. 3. He needs to see a neurovascular surgeon to see if anything can be done for his distal Left carotid or vertebral/basilar arteries. if so, this might help increase perfusion pressure and give less chance for watershed infarct and events. He has an appointment with 1 at [facility] today 4. Continue atorvastatin at the current dose. 5. Control glucose is best as possible. 6. otherwise, I have no further neurologic testing or treatment recommendations to make. Please contact me if I can be of further assistance on this case. Overall, I spent a total of 25 min with this case, including review of records, direct evaluation the patient bedside, and discussion of the case with the patient and RN at bedside, and Dr. Hernandez, including differential diagnosis and treatment options. Admission and Anticipated Discharge Date Admission Date: September 01, 2022 Subjective Patient is doing well and is not having any pain or headache, dizziness, weakness or numbness. Apparently he was a little agitated last evening received Zyprexa (? Argument with his ). He is sleepy this morning but easily arousable. Blood pressure is 220/75 and pulse is in the 50s. He is afebrile. Results & Data ([facility]) Vital Signs (Past 12 Hours) Vital Signs Temp Pulse Pulse Pulse Resp BP BP 09/04/22 07:22 36.3 C L 55 L 16 220/75 H 09/04/22 07:00 62 09/04/22 01:41 68 18 163/83 H 09/03/22 23:00 77 09/03/22 23:45 77 20 210/106 H 09/03/22 22:49 200/118 H 09/03/22 22:45 36.7 C 75 18 182/106 H 206/93 H Pulse Ox O2 Del Method 09/04/22 07:22 100 09/04/22 07:00 09/04/22 01:41 09/03/22 23:00 09/03/22 23:45 09/03/22 22:49 09/03/22 22:45 94 Room Air Exam (Neuro) Physical Exam: He is sleepy but arouses easily with voice. He has no aphasia or dysarthria. Mood seems reasonable and affect is appropriate. Extraocular muscles are intact without nystagmus. There is no facial droop. Coordination is normal in the arms and strength is symmetrical in all 4 limbs. There are no abnormal involuntary movements noted. PG Care Time/CCT Total # of Minutes Spent Total Time Spent with Patient: Total time spent is greater than 50% in coordination of care (as documented) at patient's floor/unit and/or counseling patient: Coding Level of Care Code 51372 Subseq Hosp Care Lvl 2 Diagnoses Acute CVA (cerebrovascular accident) I63.9 Carotid stenosis, symptomatic, with infarction I63.239 Vertebral artery occlusion I65.09 Memory impairment R41.3 DM2 (diabetes mellitus, type 2) E11.9 HTN (hypertension) I10 Time Spent (min) 25
--- NOTE | 2022-09-04 14:54 | Discharge Summary ---
Date of Service September 04, 2022 Admission HPI Per Admitting Provider A 76-year-old male with past medical history significant for type 2 diabetes, hypertension, mild dementia, depression, and history of CVA, who presents with stroke-like symptoms. The patient was here recently last month with the same right hand weakness. At that time, MRIs showed acute or subacute infarct in the centrum semiovale watershed distribution of the left frontal and parietal lobes and a few tiny foci also present in the left occipital lobe with a single focus in the superior aspect of the right frontal lobe and also CTA head and neck showed progression of severe stenosis of the petrous portion of the left internal carotid artery with 80% to 90% stenosis. Seen by neurology in the hospital and was started on aspirin, Plavix, and statin .The case was discussed with neurovascular surgery at [place], Dr. Osorio, who recommended outpatient followup in 2 to 4 weeks and also plan for Zio patch outpatient and the patient was discharged. The patient also followed with PCP and also there was a plan for followup with neurovascular surgeon, Dr. Osorio, on Sunday09/04/2022 and plan for any procedure and also plan for Zio patch. The patient lives with his . The patient is mostly bedbound as per , carrying on the chair for bathroom, and lately, he has some mild left-sided weakness from a previous stroke, but last 3 to 4 days, the weakness in the right hand is getting on and off worse from the baseline and he also has some slurred speech in the last 3 to 4 days on and off, and last night, he also complained of the numbness in the left side of body, right hand, and right leg and brought him into the hospital. Currently, he is back to his baseline speaking fine, alert and oriented to name and place, could tell his date of , but could not tell the current date. The patient has some short-term memory issues chronically as per the . Imaging studies, CTA of the head no significant change from the 07/25/2022 CT scan. CTA neck showed no change in severe stenosis of the petrous portion of the left internal carotid artery. The patient denies any headache, no blurred visions, somewhat hard of hearing, no runny nose, no sore throat, no cough, no chest pain, no abdominal pain, no nausea, no vomiting, normal bowel and bladder movements. Currently, hemodynamically stable. checks his sugars at home and she also checks his blood pressure. He is not on any blood pressure medications as per . Home health nurse checked his blood pressure and it is running okay. Admission Exam Per Admitting Provider GENERAL: The patient is moderate built, not in acute distress. VITAL SIGNS: Temperature 36.5, pulse 62, respiratory rate 15, blood pressure 159/87, and oxygen 92% on room air. HEENT: Pupils equal, round, and reactive to light. Oral mucosa moist. NECK: No JVD. No neck masses. CARDIOVASCULAR: S1 and S2 heard. Regular rate and rhythm. No murmur. No gallop. RESPIRATORY SYSTEM: Normal AP diameter. No accessory muscle use. No wheezing. No crackles. ABDOMEN: Soft, bowel sounds present, nontender, and no distention. CENTRAL NERVOUS SYSTEM: Alert and oriented to name and place. Remote memory seems intact. Insight is okay. Obeys simple commands. No facial droop his. Can clench his teeth. Power is 5/5 in all extremities. Hand glass selector slightly diminished on the right side. No pronator drift. Sensation seems to be intact. EXTREMITIES: No edema. No erythema. Principal Diagnosis acute CVA Discharge Exam GENERAL: The patient is moderate built, not in acute distress. HEENT: Pupils equal, round, and reactive to light. Oral mucosa moist. NECK: No JVD. No neck masses. CARDIOVASCULAR: S1 and S2 heard. Regular rate and rhythm. No murmur. No gallop. RESPIRATORY SYSTEM: Normal AP diameter. No accessory muscle use. No wheezing. No crackles. ABDOMEN: Soft, bowel sounds present, nontender, and no distention. CENTRAL NERVOUS SYSTEM: Alert and oriented to name and place. Remote memory seems intact. Insight is okay. Obeys simple commands. No facial droop. Can clench his teeth. Power is 5/5 in all extremities. Hand glass selector equal on right and lef. No pronator drift. Sensation seems to be intact. some word finding difficulty EXTREMITIES: No edema. No erythema. Discharge Data Allergies Allergy/AdvReac Type Severity Reaction Status Date / Time No Known Allergies Allergy Verified 07/25/22 19:37 Consultations 09/01/22 06:08 ED Decision to Admit Stat 09/01/22 11:16 Consult Neurology Routine Ordered Studies 09/01/22 05:16 CT angio head w con Stat CT angio neck with con Stat CT head/brain wo con Stat 09/01/22 11:16 MR brain wo/w con Urgent Hospital Course (1) Acute CVA (cerebrovascular accident): - new complaint of right hand weakness - CTA head and neck stable from prior exam - MRI brain with new punctate focus representing acute infarct in frontal lobe - severe stenosis extensively throughout intracranial vasculature - will need to follow up with OP NSG appointment - symptoms mostly resolved - continue on aspirin, plavix, high dose statin - neurology consulted - recs appreciated - continue antiplatelet and statin - needs NSG eval - has appointment at [facility] 09/04/2022 - PT/OT - rehab or home with HH - discharge 09/04/2022 and patient will go with his to NSG appointment at [facility] [place] at that time - [employer]IAN eval - regular diet - telemetry monitoring (2) H/O: CVA (cerebrovascular accident): - multiple foci seen on MRI and redemonstrated on repeat MRI brain 09/01/2022 with new focus in right frontal lobe indicating acute infarct in that area - also in the setting of severe carotid and vertebral artery stenosis - was for NSG follow up 09/04/2022 - will keep appointment - here with new symptoms as above - continue aspirin, statin, plavix as above - neurology consulted - see above - PT/OT - see above (3) Carotid stenosis, symptomatic, with infarction: - noted again on CTA head and neck - neurology consulted - aspirin, statin, plavix - NSG follow up 09/04/2022 - started on midodrine PRN to keep MAP>100 if possible (4) Memory impairment: - noted - at baseline (5) HTN (hypertension): - not on meds at this time - continue without BP meds - permissive hypertension for now - will need permissive hypertension as patient has severe stenosis and minimal collaterals - further BP lowering could worsen neurologic symptoms and trigger watershed stroke as in prior instances (6) DM2 (diabetes mellitus, type 2): - hgb A1c 7.6% 07/2022 - lantus 23 units qhs - ISS while inpatient - will need metformin on discharge Plan DVT ppx: heparin SC Code Status: Full Code Dispo: PCU Terry Hernandez MD [facility] Medicine Total Time Total Time Spent Total Time Spent (In Minutes): 25 Total Time Includes: Examination of the Patient, Discharge Planning and Medication Reconciliation Discharge Plan Discharge Items Patient Disposition: Home - Self-Care Reason For Visit: CVA SYMPTOMS Discharge Diagnosis: acute CVA Condition on Discharge: Fair Activity: As commented below Activity Comment: with assistance Non-emergency contact: Primary Care Provider, Specialist and Neurologist Call non-emergency contact if: you have any medication questions and your symptoms worsen Follow-up/Referrals: Gera Hanley DO [Primary Care Provider] - (Date & Time 09/07/2022 3:00 PM Provider ANNEMARIE Gonzales Department [facility] ) Diet: Carb Consistent or DM2 and Heart Healthy Addtl Attending Provider Instructions: You were admitted for recurrence of stroke symptoms, found to have a new area of stroke in right frontal lobe. Repeat imaging of your brain showed same narrowing of blood vessels extensively throughout you brain that will require a neurosurgical evaluation. You were continued on statin for cholesterol, and Plavix. You have an appointment 09/04/2022 with neurosurgery at [facility] which you should attend to get an opinion on options for interventions on your vascular disease causing recurrence of your stroke symptoms putting you at risk for further events. You will be prescribed a medication called midodrine that you should take as needed to keep Blood pressure above 130/90 but not higher than 180/110. Pending Studies at Discharge: No Stand-Alone Forms: My [facility], Smoking Cessation, Medications to Prevent Stroke Medications and DC Order Prescriptions: New midodrine 2.5 mg Tablet 2.5 mg PO TID@0800,1200,1700 PRN (Reason: low blood pressure) Qty: 30 0RF Rx Instructions: should take to keep your BP> 130/80 but not more than 180/110 metformin 1,000 mg tablet extended release 24 hr 1,000 mg PO BID Qty: 60 0RF aspirin 81 mg Tablet,Delayed Release (Dr/Ec) 81 mg PO DAILY Qty: 30 0RF Continued insulin aspart U-100 [Novolog PenFill U-100 Insulin] 100 unit/mL Cartridge 0 sliding scale dose SUBCUT TIDM Rx Instructions: per carb count insulin degludec [Tresiba FlexTouch U-100] 100 unit/mL (3 mL) Insulin Pen 23 unit SUBCUT HS citalopram 10 mg tablet 5 mg PO DAILY milk thistle 150 mg Capsule 0 mg PO DAILY Rx Instructions: UNSURE OF STRENGTH chromium picolinate 200 mcg Tablet 0 mcg PO DAILY Rx Instructions: UNSURE OF STRENGTH zinc gluconate 50 mg Tablet 0 mg PO DAILY Rx Instructions: UNSURE OF STRENGTH magnesium 250 mg Tablet 0 mg PO DAILY Rx Instructions: UNSURE OF STRENGTH vitamin E 268 mg (400 unit) Capsule 0 mg PO DAILY Rx Instructions: UNSURE OF STRENGTH folic acid 800 mcg Tablet 0 mg PO DAILY Rx Instructions: UNSURE OF STRENGTH cholecalciferol (vitamin D3) [Vitamin D3] 25 mcg (1,000 unit) Capsule 0 mcg PO DAILY Rx Instructions: UNSURE OF STRENGTH coenzyme Q10 [CoQ-10] 100 mg Capsule 0 mg PO DAILY Rx Instructions: UNSURE OF STRENGTH potassium gluconate 595 mg (99 mg) Tablet 0 mg PO DAILY Rx Instructions: UNSURE OF STRENGTH Other Vits & Minerals Unknown 1 dose PO DAILY Rx Instructions: PER PT'S "CAN'T REMEMBER ALL OF THE VITAMINS & MINERALS THAT I GIVE HIM", clopidogrel 75 mg Tablet 75 mg PO QAM Qty: 30 0RF atorvastatin 80 mg tablet 80 mg PO DAILY Qty: 30 0RF Discharge Orders: Discharge Order (Routine); Ordered 09/04/22 Ordered By: Terry Rivero/Other Patient Handouts: Managing Type 2 Diabetes Admission Data Admit Date/Time: 09/01/22 07:10 Attending Provider: Terry Hernandez Admit Provider: German Neal Primary Care Provider: Gera Hanley Other Providers: German Neal ; Benito Campoverde ; Arya Grier ; Elza Emerson ; Nanda Wetzel John E ; Nanda Carpenter ; Mikel Carl ; Eun Miller ; Jake Maya ; Beatriz Oliveira ; Yamile Deal ; Samuel Avila ; Pending Sale To [facility] Other Interventions: Discharge Summary Assessment (RN) Last Done: 09/04/22 09:20
== END 2022-09-04 12:35 | disposition home health service (06) | DRG 64 ==
LOC: ED 05:02 → 2S 07:10

== ENCOUNTER 2025-01-09 12:23 | Inpatient (IN) ==
--- NOTE | 2025-01-09 13:15 | XRay Report ---
XR chest 1V portable CLINICAL HISTORY: weakness, falls COMPARISON STUDY: 11/04/2024 FINDINGS: There is mild aortic ectasia. Heart size and pulmonary vasculature are normal. No effusion, consolidation, or pneumothorax. IMPRESSION: No acute findings. ACT 112: Negative or not required by law. Electronically signed by: Toni Renee M.D. 01/09/2025 1:14 PM
--- NOTE | 2025-01-09 13:15 | CT Scan Report ---
CT OF THE HEAD WITHOUT CONTRAST CLINICAL HISTORY: Fall. COMPARISON STUDY: MRI of the brain September 01, 2022. Head CT January 09, 2025 at 4:[address] DOSE: 625.8 mGy.cm TECHNIQUE: Helical axial images of the head were obtained without IV contrast. Automated exposure con trol was utilized for the study. A dose lowering technique was utilized adhering to the principles o f ALARA. FINDINGS: No acute intracranial hemorrhage, midline shift or mass effect is present. The ventricular system is stable. White matter hypodensity suggests small vessel disease. Foci of encephalomalacia wi thin the left frontal lobe are unchanged. The basal cisterns are patent. No extra-axial collections a re present. There are no findings to suggest acute dural sinus thrombosis or acute territorial infarc t. There are no calvarial fractures. Left scalp lacerations with skin kasia are noted. IMPRESSION: 1. No acute intracranial findings. 2. No calvarial fractures. ACT 112: Negative or not required by law. Electronically signed by: Chevy Tobias M.D. 01/09/2025 1:14 PM
[2025-01-09 13:26] LABS: Basophils # (auto) 0.04 K/uL (0.00-0.20); Basophils % (auto) 0.4 %; Eosinophils # (auto) 0.03 K/uL (0.00-0.50); Eosinophils % (auto) 0.3 %; Hematocrit (blood only) 43.1 % (42.0-52.0); Hemoglobin 15.1 g/dl (14.0-18.0); Immature Granulocytes # (auto) 0.04 K/uL (0.01-0.20); Immature Granulocytes % (auto) 0.4 %; Lymphocytes # (auto) 1.56 K/uL (1.20-3.40); Lymphocytes % (auto) 15.6 %; Mean Corpuscular Hemoglobin 31.5 pg (25.0-34.0); Mean Corpuscular Volume 89.8 fL (80.0-100.0); Mean Platelet Volume 9.4 fL (9.4-12.4); Monocytes # (auto) 0.86 K/uL (0.11-0.59); Monocytes % (auto) 8.6 %; Neutrophils # (auto) 7.44 K/uL (1.40-6.50); Neutrophils % (auto) 74.7 %; Platelet Count 206 K/uL (130-400); RDW Coefficient of Variation 12.8 % (11.5-14.5); RDW Standard Deviation 42.7 fL (36.4-46.3); White Blood Count 9.97 K/ul (4.8-10.8)
[2025-01-09 13:43] LABS: Albumin Globulin Ratio 1.5 (0.9-2); BUN Creatinine Ratio 14.5 (10-20); Bilirubin,Total 0.9 mg/dl (0.2-1.0); Calcium 8.7 mg/dl (8.6-10.3); Creatinine Clr Calc Pharmacy 86.7 ml/min; Globulin 2.7 gm/dl (2.5-4.0); Magnesium 2.1 mg/dl (1.7-2.4); Potassium 4.2 mmol/L (3.5-5.1); Total Protein 6.7 gm/dl (6.0-8.3)
[2025-01-09 13:47] LABS: Troponin I High Sensitivity 12.4 pg/ml (0-20)
[2025-01-09 13:50] LABS: Prothrombin Time 10.6 Seconds (9.0-12.0)
--- NOTE | 2025-01-09 14:40 | History & Physical Report ---
Date of Service January 09, 2025 Assessment & Plan (1) Frequent falls: (2) Scalp laceration: (3) Vascular dementia: (4) HTN (hypertension): (5) DM2 (diabetes mellitus, type 2): Plan Frequent Falls - Admit to med surg - Fall precautions - CM to assist with placement options for the patient as he is unsafe to return home, feels she can not care for him herself due to worsening dementia and safety - PT/OT consults - Continue home meds - CT head reviewed and negative - will need polly removed from scalp in 7 days, placed on 01/08, remove 01/15. - UA in process, follow to confirm no infection DM II - Pt took him off metformin a year ago. Is diet controlling his food and states this has been working. She only uses Tresiba 23 U HS and maybe Novolog once daily but not often. - Check A1C - ISS with accuchecks achs Scalp Laceration x 2 - 4 Polly over the left parietal region and another small cut more posteriorly on the left side with 1 staple - needs removed ~01/15 - Wound care with dry dressing if needed Vascular Dementia, severe, without behavioral disturbance - zyprexa 2.5 mg PO scheduled HS, will also allow 1 dose IM prn tonight if agitation worsens with sundowning. 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 Dispo: From home, likely to remain in the hospital x 2 days, CM to assist with placement and discharge planning. prefers [place] or location close to [place]. I spent a total of 76 minutes with greater than 50% of that time face to face with the patient, personally reviewing all current laboratories, imaging studies, past medication reconciliation, outpatient chart review, and discussion with specialists to collaborate care for the patient excluding time spent in the performance of separately billed services or time spent by another provider/QHP. Please see attending documentation for corrections and/or additions. History of Present Illness Chief Complaint: Falls Primary Care Provider: Gera Hanley DO This is a 79 yo M with PMHx of DM II, HTN, HLD, carotid stenosis of the left, previous ischemic left MCA stroke, major depressive disorder, vascular dementia with behavioral disturbance, who presents to the hospital with complaints of frequent falls. provides the history as the patient is unable to do so due to dementia. She states that yesterday early afternoon the patient sustained a fall in their home resulting in a scalp laceration where she called ambulance and they took him to [facility]. There imaging was performed, no acute findings, and polly were placed on he lacerations of the scalp. [facility] recommended that the patient be admitted at one of their higher care facilities and were suggesting transfer either to [place] or [place], however did not want to do that as the pt has received care here at [facility] and preferred this hospital. Their care team at [facility] stated that that would require a direct admission and said it was not possible last evening. Pt improved to the point where he was able to walk about the ER flores at [facility] and opted to take the patient home. Once back at home, at approximately 0200 he woke up to urinate, walked to the bathroom which is next to their bedroom, and sustained another fall. EMS was called again and she requested transfer here to [facility]. Once here overnight, underwent supportive care, improved, and was stable for discharge home early this morning. At home again around 9:30 AM he nearly had a third fall, and his called EMS again and requested he come back to [facility]. Hospitalist team has been consulted for admission for possible placement. She does not feel the patient is safe to be home due to multiple falls. Allergies Allergy/AdvReac Type Severity Reaction Status Date / Time No Known Allergies Allergy Verified 01/09/25 14:31 Home Medications Medication Instructions Recorded Confirmed Type insulin aspart U-100 100 unit/mL 0 sliding scale dose subcut TIDM 07/06/20 01/09/25 History subcutaneous cartridge (Novolog PenFill U-100 Insulin aspart) insulin degludec 100 unit/mL (3 23 unit subcut HS 07/06/20 01/09/25 History mL) subcutaneous pen (Tresiba FlexTouch U-100 insulin) cholecalciferol (vitamin D3) 25 25 mcg PO DAILY 07/25/22 01/09/25 History mcg (1,000 unit) capsule (Vitamin D3) chromium picolinate 200 mcg tablet 200 mcg PO DAILY 07/25/22 01/09/25 History coenzyme Q10 100 mg capsule 100 mg PO DAILY 07/25/22 01/09/25 History (CoQ-10) folic acid 800 mcg tablet 800 mg PO DAILY 07/25/22 01/09/25 History magnesium 250 mg tablet 250 mg PO DAILY 07/25/22 01/09/25 History milk thistle 150 mg capsule 150 mg PO DAILY 07/25/22 01/09/25 History potassium gluconate 595 mg (99 mg) 99 mg PO DAILY 07/25/22 01/09/25 History tablet vitamin E 268 mg (400 unit) capsule 400 mg PO DAILY 07/25/22 01/09/25 History zinc gluconate 50 mg tablet 50 mg PO DAILY 07/25/22 01/09/25 History atorvastatin 80 mg tablet 80 mg PO DAILY #30 tabs 07/28/22 01/09/25 Rx Past Med/Surg History Problem List (Updated 01/09/25 @ 14:37 by Kathy Briceño PA-C) Scalp laceration Frequent falls Facial laceration (Acute) Closed head injury (Acute) Altered mental status (Acute) DM2 (diabetes mellitus, type 2) Vertebral artery occlusion HTN (hypertension) Carotid stenosis, symptomatic, with infarction Acute CVA (cerebrovascular accident) Memory impairment Transient cerebral ischemia (Acute) Blood glucose elevated (Acute) Medical History Carotid stenosis, symptomatic, with infarction Stroke TIA (transient ischemic attack) Vascular dementia Vertebral artery occlusion Surgical History No pertinent past surgical history Family History Father , He in his 70s of an [place] Primary Parkinson's disease Myocardial infarction Mother , age 101 No problems noted. 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 Beliefs That Will Affect Care: None Current Living Situation: Spouse Feels Safe at Home: Yes Assistive Devices: Other Review of Systems Review of Systems: Unobtainable due to cognitive status Physical Exam Physical Exam: General: awake, alert, no apparent distress, white male Head: Normocephalic, atraumatic ENT: PERRL, EOMI, no pharyngeal exudate, mucous membranes moist Chest: Clear to auscultation, on room air, no adventitious breath sounds Cardiac: Regular rate and rhythm, no murmur, no JVD, normal peripheral pulses, good capillary refill Abdominal: NABS x 4 quadrants, soft, nondistended, nontender to palpation, no rebound or guarding Extremities: Normal inspection, no peripheral edema or erythema, calfs nontender to palpation Psych: Normal mood and affect Neuro: awake, not oriented to time or place, strength intact bilaterally and rated 5/5, no motor deficits, speech is clear, no peripheral sensory deficits Results & Data Results & Data Vital Signs (Past 12 Hours) Vital Signs Temp Pulse Resp BP Pulse Ox O2 Del Method 01/09/25 12:36 96 Room Air 01/09/25 12:36 83 01/09/25 12:29 18 94 01/09/25 12:17 36.6 C 85 18 142/85 H 91 Room Air Laboratory Results 01/09/25 13:00 WBC 9.97 RBC 4.80 Hgb 15.1 Hct 43.1 MCV 89.8 MCH 31.5 MCHC 35.0 RDW Std Deviation 42.7 RDW Coeff of Nikita 12.8 Plt Count 206 MPV 9.4 Immature Gran % (Auto) 0.4 Neut % (Auto) 74.7 Lymph % (Auto) 15.6 [place] % (Auto) 8.6 Eos % (Auto) 0.3 Baso % (Auto) 0.4 Neut # (Auto) 7.44 H Lymph # (Auto) 1.56 [place] # (Auto) 0.86 H Eos # (Auto) 0.03 Baso # (Auto) 0.04 Immature Gran # (Auto) 0.04 PT 10.6 INR 1.0 Sodium 134 L Potassium 4.2 Chloride 103 Carbon Dioxide 26 Anion Gap 5 BUN 11 Creatinine 0.76 Est Cr Clr Drug Dosing 86.7 eGFR 92.57 BUN/Creatinine Ratio 14.5 Glucose 182 H Calcium 8.7 Magnesium 2.1 Total Bilirubin 0.9 AST 15 ALT 13 Alkaline Phosphatase 47 Total Creatine Kinase 80 Troponin I High Sens 12.4 Total Protein 6.7 Albumin 4.0 Globulin 2.7 Albumin/Globulin Ratio 1.5 Lipase 14 Diagnostic Findings Chest X-Ray 01/09/25 12:36 XR chest 1V portable CLINICAL HISTORY: weakness, falls COMPARISON STUDY: 11/04/2024 FINDINGS: There is mild aortic ectasia. Heart size and pulmonary vasculature are normal. No effusion, consolidation, or pneumothorax. IMPRESSION: No acute findings. ACT 112: Negative or not required by law. Electronically signed by: Toni Renee M.D. 01/09/2025 1:[address] 01/09/25 12:49 CT OF THE HEAD WITHOUT CONTRAST CLINICAL HISTORY: Fall. COMPARISON STUDY: MRI of the brain September 01, 2022. Head CT January 09, 2025 at 4:[address] DOSE: 625.8 mGy.cm TECHNIQUE: Helical axial images of the head were obtained without IV contrast. Automated exposure control was utilized for the study. A dose lowering technique was utilized adhering to the principles of ALARA. FINDINGS: No acute intracranial hemorrhage, midline shift or mass effect is present. The ventricular system is stable. White matter hypodensity suggests small vessel disease. Foci of encephalomalacia within the left frontal lobe are unchanged. The basal cisterns are patent. No extra-axial collections are present. There are no findings to suggest acute dural sinus thrombosis or acute territorial infarct. There are no calvarial fractures. Left scalp lacerations with skin polly are noted. IMPRESSION: 1. No acute intracranial findings. 2. No calvarial fractures. ACT 112: Negative or not required by law. Electronically signed by: Chevy Tobias M.D. 01/09/2025 1:14 PM Code Status & VTE Plan Code Status Full code - discussed with pt at bedside. Supervising Physician Co-Signing Physician Notes I have seen and discussed the case with the collaborating advanced practitioner. I agree with the above H&P. I have reviewed and confirmed the patients medical history, the findings on physical examination, and the patients diagnosis and treatment plan with Navarro SANTIAGO and agree with the information documented. Mr. Oconnor is a 79-year-old male with history of by lateral thalamic strokes, hypertension, type 2 diabetes, and left MCA ischemic stroke status post left carotid stent who is admitted for evaluation of weakness and falls. He presented to [facility] ED on 01/08 after a scalp laceration sustained from a fall at home. attempted to take patient home, however, patient was so weak, she could not get him home; prompting their presentation to [facility] ED. states she thinks this is progressive slowly, but noted that the last 3 days has been marked by more aggressive behavior and falling. The states she feels that he needs to trial rehab. Imaging was unrevealing, CT with encephalomalacia consistent with prior strokes. Exam with laceration on right forehead, clean and approximated. agitated tryiing to get out of bed #Severe vascular dementia with behavioral disturbance #Weakness no clear infectious source or thought as to why change in "3days" however history unclear from 's report and likely more progressive in nature Olanzipine po 2.5mg as agreed to by Discussed may require other pharmacologic interventions and goal to prevent IM PT/OT ordered I spent a total of20 minutes coordinating, documenting, and providing care for this patient excluding time spent in the performance of separately billed services. All of the aforementioned completed outside of collaborating with the assigned advanced practitioner for a full treatment plan. I have reviewed the advanced practitioner's documentation, and I agree with, and take responsibility for the plan of care
[2025-01-09 16:29] LABS: Appearance Urine Clear (Clear); Bilirubin Urine Negative (Negative); Blood Urine Negative (Negative); Color Urine Yellow; Glucose Urine UA Negative (Negative); Ketones Urine 1+ (Negative); Leukocyte Esterase Urine Negative (Negative); Nitrite Urine Negative (Negative); Protein Urine Negative (Negative); Specific Gravity Urine 1.012 (1.000-1.030); Urobilinogen Urine Negative (Negative)
[2025-01-09] MEDS ORDERED: OLANZapine 10 MG/2.1 ML SDV IM PRN (17:54)
[2025-01-09] MEDS ORDERED: ONDANSETRON INJ 2 MG/ML 2 ML VIAL IV PRN (17:54)
--- NOTE | 2025-01-09 18:35 | Emergency Department Note ---
Impression & Plan Altered mental status, Closed head injury, Frequent falls ED Provider Note NAME: JC NEGRETE AGE: 79 SEX: Male INFORMANT: Patient and ED PROVIDER(S): Samuel Sheth MD CHIEF COMPLAINT: PLAN: Disposition: Admitted Outpatient prescription management: none Referral: None MEDICAL DECISION MAKING: Patient presented back to the emergency department for reevaluation. He is not doing well at home. CT imaging of the head was negative. Patient's ECG did not reveal any acute findings. His workup did not reveal any metabolic issues on laboratory testing. Given the patient's inability to function at home with his declining mental status further evaluation and management in the hospital was deemed appropriate. Notation was made with the hospitalist service. Patient was evaluated in the ER admitted for further management. 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 Vital Signs: reviewed and remarkable for no significant abnormalities Additional History obtained from: Patient's Chronic Medical/Social Conditions affecting care: Dementia Prior/ Outside/ External records reviewed: Prior ED visit record reviewed. Differential Diagnosis: Infection, hypoglycemia, electrolyte abnormalities, overdose, toxicologic, cardiac sources, intracerebral event, neurologic, trauma, as well as other pathologies. Diagnostics, independently interpreted by me: ECG: Twelve-lead ECG reveals a normal sinus rhythm at 94 bpm. Left anterior fascicular block. LVH. No ST elevation or depression. Cardiac Monitoring: Cardiac monitoring ordered by me: The patient was placed on continuous cardiac monitoring and observed. It revealed a normal sinus rhythm at 73 beats per minute without ectopy or evidence of dysrhythmia. Medical decision rules: none Imaging studies: Head CT: A noncontrast CT scan of the head was performed and was negative for tumor, fracture, intracranial hemorrhage, or other acute pathology. Chest x-ray. Findings: A chest x-ray was performed and revealed no pneumothorax, effusion, infiltrate, pulmonary edema, free air under the diaphragm, or wide mediastinum. Impression: No acute disease. HPI: 79 year old Male arrives for evaluation of frequent falls and a change in mental status. Patient has a history of dementia. He has had multiple falls in the last 24 hours. notes recently he has had more bad days than good days with regard to his memory impairment and behavior. Patient was seen at [facility] and had a laceration to his scalp. This was repaired with surgical kasia. Patient's states that his mental status at the time improved. He has issues with dementia and memory loss. He has good days and bad days. He seemed to be having more issues yesterday before the fall. After his treatment there he seemed to improve. The wanted him to come to the hospital here for evaluation. She ended up taking him home and then getting him to the hospital here. The patient improved and she felt he was back to his baseline. The thought was that they would continue evaluation as an outpatient however the noted that she was unable to care for him at home and had him come back to the emergency department this afternoon. Pt denies headache, fevers, neck pain, chest pain, breathing difficulties, nausea, vomiting, abdominal pain, back pain, urinary symptoms, weakness, or other complaints. PAST MEDICAL HISTORY: Diabetes, see below PAST SURGICAL HISTORY: See Below, SOCIAL HISTORY: See Below, HOME MEDICATIONS: See Below ALLERGIES: See Below VITALS: See Below PHYSICAL EXAMINATION: GENERAL: Awake, alert, well-appearing, in no distress HENT: Normocephalic, atraumatic. Oropharynx unremarkable. EYES: Normal conjunctiva. Sclera non-icteric. NECK: Inspection normal. Non-tender. Supple. No nuchal rigidity. FROM. No masses. RESPIRATORY: Clear to auscultation. No wheezes. No rales. Normal respiratory effort. CARDIAC: Normal rate. Normal rhythm. No murmurs. No rubs. Extremities warm and well perfused. Pulses equal. No JVD. GI: Soft, non-distended. No tenderness to palpation. No rebound or guarding. No masses. MUSCULOSKELETAL: Atraumatic. Chest examination reveals no tenderness. The back is symmetrical on inspection without obvious abnormality. There is no CVA tenderness to palpation. No joint edema. LOWER EXTREMITIES: Calves are equal size bilaterally and non-tender. No edema. No discoloration. NEURO: Demented sensorium. No sensory or motor deficits noted. SKIN: No rash or jaundice noted. PROCEDURES: none CRITICAL CARE: none OBSERVATION NOTE: none Past Med/Surg History Problem List (Updated 01/09/25 @ 18:35 by Samuel Sheth MD) Scalp laceration Frequent falls (Acute) Facial laceration (Acute) Closed head injury (Acute) Altered mental status (Acute) DM2 (diabetes mellitus, type 2) Vertebral artery occlusion HTN (hypertension) Carotid stenosis, symptomatic, with infarction Acute CVA (cerebrovascular accident) Memory impairment Transient cerebral ischemia (Acute) Blood glucose elevated (Acute) Medical History Carotid stenosis, symptomatic, with infarction Stroke TIA (transient ischemic attack) Vascular dementia Vertebral artery occlusion Surgical History No pertinent past surgical history Family History Father , He in his 70s of an [place] Primary Parkinson's disease Myocardial infarction Mother , age 101 No problems noted. 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 Beliefs That Will Affect Care: None Current Living Situation: Spouse Feels Safe at Home: Yes Assistive Devices: Other Allergies Allergies Allergy/AdvReac Type Severity Reaction Status Date / Time No Known Allergies Allergy Verified 01/09/25 14:31 Home Meds Home Medications Medication Instructions Recorded Confirmed insulin aspart U-100 100 unit/mL 0 sliding scale dose subcut TIDM 07/06/20 01/09/25 subcutaneous cartridge (Novolog PenFill U-100 Insulin aspart) insulin degludec 100 unit/mL (3 23 unit subcut HS 07/06/20 01/09/25 mL) subcutaneous pen (Tresiba FlexTouch U-100 insulin) cholecalciferol (vitamin D3) 25 25 mcg PO DAILY 07/25/22 01/09/25 mcg (1,000 unit) capsule (Vitamin D3) chromium picolinate 200 mcg tablet 200 mcg PO DAILY 07/25/22 01/09/25 coenzyme Q10 100 mg capsule 100 mg PO DAILY 07/25/22 01/09/25 (CoQ-10) folic acid 800 mcg tablet 800 mg PO DAILY 07/25/22 01/09/25 magnesium 250 mg tablet 250 mg PO DAILY 07/25/22 01/09/25 milk thistle 150 mg capsule 150 mg PO DAILY 07/25/22 01/09/25 potassium gluconate 595 mg (99 mg) 99 mg PO DAILY 07/25/22 01/09/25 tablet vitamin E 268 mg (400 unit) capsule 400 mg PO DAILY 07/25/22 01/09/25 zinc gluconate 50 mg tablet 50 mg PO DAILY 07/25/22 01/09/25 Previous Rx's Medication Instructions Recorded atorvastatin 80 mg tablet 80 mg PO DAILY #30 tabs 07/28/22 Results & Data (ED) Vital Signs Vital Signs - 24 hr 01/09/25 12:17 01/09/25 12:29 01/09/25 12:36 Temperature 36.6 C Temperature Source Temporal Artery Scan Pulse Rate 85 83 Pulse Rate [Apical] Respiratory Rate 18 18 Respiratory Depth Normal Blood Pressure 142/85 H Blood Pressure [Left Arm] Blood Pressure Mean 104 Blood Pressure Mean [Left Arm] Pulse Oximetry 91 94 Oxygen Delivery Method Room Air Sepsis Recent Fever Within 48 Hours No Sepsis New/Unexplained Change in Mental Status N/A Sepsis Action Taken by Nursing No Action Required 01/09/25 12:36 01/09/25 14:29 Temperature Temperature Source Pulse Rate Pulse Rate [Apical] 70 Respiratory Rate 18 Respiratory Depth Blood Pressure Blood Pressure [Left Arm] 158/94 H Blood Pressure Mean Blood Pressure Mean [Left Arm] 115 Pulse Oximetry 96 93 Oxygen Delivery Method Room Air Room Air Sepsis Recent Fever Within 48 Hours Sepsis New/Unexplained Change in Mental Status Sepsis Action Taken by Nursing Laboratory Data 01/09/25 13:00 01/09/25 13:00 Lab Results 01/09/25 Range/Units 13:00 WBC 9.97 (4.8-10.8) K/ul RBC 4.80 (4.70-6.10) M/uL Hgb 15.1 (14.0-18.0) g/dl Hct 43.1 (42.0-52.0) % MCV 89.8 (80.0-100.0) fL MCH 31.5 (25.0-34.0) pg MCHC 35.0 (32.0-36.0) g/dL RDW Std Deviation 42.7 (36.4-46.3) fL RDW Coeff of Nikita 12.8 (11.5-14.5) % Plt Count 206 (130-400) K/uL MPV 9.4 (9.4-12.4) fL Immature Gran % (Auto) 0.4 % Neut % (Auto) 74.7 % Lymph % (Auto) 15.6 % [place] % (Auto) 8.6 % Eos % (Auto) 0.3 % Baso % (Auto) 0.4 % Neut # (Auto) 7.44 H (1.40-6.50) K/uL Lymph # (Auto) 1.56 (1.20-3.40) K/uL [place] # (Auto) 0.86 H (0.11-0.59) K/uL Eos # (Auto) 0.03 (0.00-0.50) K/uL Baso # (Auto) 0.04 (0.00-0.20) K/uL Immature Gran # (Auto) 0.04 (0.01-0.20) K/uL PT 10.6 (9.0-12.0) Seconds INR 1.0 (0.9-1.1) Sodium 134 L (136-145) mmol/L Potassium 4.2 (3.5-5.1) mmol/L Chloride 103 (98-107) mmol/L Carbon Dioxide 26 (21-32) mmol/L Anion Gap 5 (3-11) BUN 11 (6-23) mg/dl Creatinine 0.76 (0.6-1.4) mg/dl Est Cr Clr Drug Dosing 86.7 ml/min eGFR 92.57 BUN/Creatinine Ratio 14.5 (10-20) Glucose 182 H (70-99(Fasting)) mg/dl Calcium 8.7 (8.6-10.3) mg/dl Magnesium 2.1 (1.7-2.4) mg/dl Total Bilirubin 0.9 (0.2-1.0) mg/dl AST 15 (13-39) U/L ALT 13 (7-52) U/L Alkaline Phosphatase 47 (34-104) U/L Total Creatine Kinase 80 (30-223) U/L Troponin I High Sens 12.4 (0-20) pg/ml Total Protein 6.7 (6.0-8.3) gm/dl Albumin 4.0 (3.4-5.0) gm/dl Globulin 2.7 (2.5-4.0) gm/dl Albumin/Globulin Ratio 1.5 (0.9-2) Lipase 14 (11-82) U/L Imaging Data Radiologist's Impression: Chest X-Ray 01/09/25 12:36 XR chest 1V portable CLINICAL HISTORY: weakness, falls COMPARISON STUDY: 11/04/2024 FINDINGS: There is mild aortic ectasia. Heart size and pulmonary vasculature are normal. No effusion, consolidation, or pneumothorax. IMPRESSION: No acute findings. ACT 112: Negative or not required by law. Electronically signed by: Toni Renee M.D. 01/09/2025 1:[address] 01/09/25 12:49 CT OF THE HEAD WITHOUT CONTRAST CLINICAL HISTORY: Fall. COMPARISON STUDY: MRI of the brain September 01, 2022. Head CT January 09, 2025 at 4:[address] DOSE: 625.8 mGy.cm TECHNIQUE: Helical axial images of the head were obtained without IV contrast. Automated exposure control was utilized for the study. A dose lowering technique was utilized adhering to the principles of ALARA. FINDINGS: No acute intracranial hemorrhage, midline shift or mass effect is present. The ventricular system is stable. White matter hypodensity suggests small vessel disease. Foci of encephalomalacia within the left frontal lobe are unchanged. The basal cisterns are patent. No extra-axial collections are present. There are no findings to suggest acute dural sinus thrombosis or acute territorial infarct. There are no calvarial fractures. Left scalp lacerations with skin kasia are noted. IMPRESSION: 1. No acute intracranial findings. 2. No calvarial fractures. ACT 112: Negative or not required by law. Electronically signed by: Chevy Tobias M.D. 01/09/2025 1:14 PM Discharge Plan Visit Data Chief Complaint: Fall Stated Complaint: FALLS ED Provider: Samuel Sheth Discharge Problem: Altered mental status, Closed head injury, Frequent falls Discharge Instructions Interventions: ED Discharge Assessment Last Done: 01/09/25 17:54
[2025-01-09] MEDS: ATORVASTATIN 40 MG TAB PO SCH (20:23)
[2025-01-09] MEDS: OLANZAPINE 2.5 MG TAB PO SCH (21:45)
--- OUTSIDE RECORDS SUMMARY | 2025-01-10 06:51 | External Medical Summary | Summary of Care ---
Author Name Unknown Organization [facility] Address [address] [place] [address] Phone [phone] Care Team Providers Care Lpn Cma Name Role Phone Unavailable Primary Care Provider Unavailabl e Encounter Details Date Type Department Care Team (Late st Contact Info) Description 01/08/2025 Result Scan Unspecified Department <No scans attached> Allergies No known active allergiesdocumented as of this encounter (statuses as of 01/09/2025) Medications NOVOLOG FLEXPEN 100 UNIT/ML SOPN 11/20 per carb count 0 Active BD PEN NEEDLE LEOBARDO 2ND GEN 32G X 4 MM As directed. 0 Active Cholecalciferol (VITAMIN D) 125 MCG (5000 UT) CAPSIndications:t akes at night Take 5,000 Units by mouth . Active B Complex Tablet Take 1 Tablet by mouth in the morning. Active Dexcom G6 Fire Hydrant Mechanic Device Use as directed 0 Active Dexcom G6 Sensor Use as directed 0 Active Dexcom G6 Transmitter Use as directed 0 Active Vitamin C ER 1000-100 MG Oral Tablet Extended Release Take by mouth 1,000 mg daily . Active Vitamin E 180 MG (400 UNIT) Oral Capsule Take 1 Capsule by mouth in the morning. Active Magnesium 300 MG Oral Capsule Take by mouth 300 mg daily . Active Insulin Degludec 100 UNIT/ML Subcutaneous Solution Pen-injector (Tresiba FlexTouch) 20 Units at bedtime . 5 Each 2 Active Aspirin 325 MG Oral Tablet Delayed Release Take 1 Tablet by mouth in the morning. 30 Tablet 2 Active metFORMIN HCl 500 MG Oral Tablet (Glucophage) Take 1 Tablet by mouth in the morning and 1 Tablet before bedtime. 2 Active Zinc Sulfate 220 (50 Zn) MG Oral Capsule Take 1 Capsule by mouth in the morning. Active Magnesium Oxide 400 MG Oral Tablet 1 Tablet. 2 Active Citalopram Hydrobromide 10 MG Oral Tablet (CeleXA)Indicatio ns:Major depressive disorder, recurrent episode, moderate (HCC) Take 1 Tablet by mouth in the morning. Full tab. 90 Tablet 1 3 Active CoQ-10 100 MG Oral Capsule Take by mouth. 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 In the morning.. 90 Tablet 3 4 Active documented as of this encounter (statuses as of 01/09/2025) Active Problems Problem Noted Date Diagnosed Date Vascular dementia with behavior disturbance 10/23 Internal carotid artery stent present 09/11/2022 Aphasia 09/11/2022 Hyperlipidemia with target LDL less than 70 08/23 Carotid stenosis, left 09/11/2022 Vascular dementia 09/11/2022 History of ischemic left MCA stroke 09/05/2022 Snoring 07/13/2021 HTN, goal below 140/90 01/05/2021 Type 2 diabetes mellitus wit h hemoglobin A1c goal of less than 8.0% 01/05/2021 Mild dementia 01/05/2021 Major depressive disorder, recurrent episode, mo derate 01/05/2021 documented as of this encounter (statuses as of 01/09/2025) Resolved Problems Problem Noted Date Diagnosed Date Resolved Date Left carotid artery occlusion 09/11/2022 11/03/2022 Delirium superimposed on dementia 09/11/2022 09/12/2022 Ischemic stroke 09/05/2022 11/03/2022 documented as of this encounter (statuses as of 01/09/2025) Immunizations Name Administration Dates Next Due Pneumococcal Polysaccharide PPV23 (Pneumovax) Season Influenza, Quad, PF, Adjuvanted, 65+ Yrs, IM (FLUAD) 09/06/2020 documented as of this encounter Social History Tobacco Use Types Packs/Day Years Used Date Smoking Tobacco: Former Smokeless Tobacco: Never Alcohol Use Standard Drinks/Week Comments Yes 7 (1 standard drink = 0.6 oz pur e alcohol) ocassionaly PHQ-2 Answer Date Recorded PHQ Adult Total Score 1 07/13/2021 Hunger Vital Sign Answer Date Recorded Worried About Running Out of Food in the Last Ye ar Never true 07/08/2020 Ran Out of Food in the Last Year Never true 07/08/2020 Utilities Answer Date Recorded Do you have trouble paying y our heating, water, or electric bill? (Adult - for ages 18 years and over) Not on file 04/08/2024 Is your family able to pay t he heat, water, or electric bill? (Household - for ages 0-17 years) Not on file 04/08/2024 Does your family have access to good internet? (Household - for ages 0-17 years) Not on file 04/08/2024 Social Connections Answer Date Recorded How often do you feel lonely or isolated from those around you? (Adult - for ages 18 years and over) Not on file 04/08/2024 Sex and Gender Information Value Date Recorded Sex Assigned at Male 07/08/2020 3:25 PM EDT Legal Sex Male 12:41 PM EDT Gender Identity Male 07/08/2020 3:25 PM EDT Sexual Orientation Straight 07/08/2020 3: 25 PM EDT documented as of this encounter Functional Status * Are you deaf or do you have serious difficulty hearing? Answer Date of Assessment Author No 09/04/2022 5:20 PM Asha Lu RN * Are you blind or do you have serious difficulty seeing, even when wearing glasses? Answer Date of Assessment Author No 09/04/2022 5:20 PM Asha Lu RN * Do you have serious difficulty walking or climbing stairs? (5 years old or older) Answer Date of Assessment Author Yes 09/04/2022 5:20 PM Asha Lu RN * Do you have difficulty dressing or bathing? (5 years old or older) Answer Date of Assessment Author Yes 09/04/2022 5:20 PM EST Delosier, Asha J, RN * Because of a physical, mental, or emotional condition, do you have difficulty doing errands alone such as visiting a doctors office or shopping? (15 years old or older) Answer Date of Assessment Author Yes 09/04/2022 5:20 PM Asha Lu, RN documented as of this encounter Plan of Treatment Scheduled Procedures Name Priority Associated Diagnoses Date/Ti me COLONOSCOPY FLEXIBLE PROXIMAL DIAGNOSTIC Recall History of colon polyps Health Maintenance Due Date Last Done Comments DTap/Tdap Vaccines (1 - Tdap) 1966 Zoster Vaccines (1 of 2) 1997 Pneumococcal Vaccine: 50+ Years (2 of 2 - PCV) 07/15/2015 07/15/2014 Colonoscopy 08/31/2021 08/31/2020, 08/31/2020 Depression Monitoring 07/13/2022 07/13/2021 Diabetic Foot Exam 01/19/2023 01/19/2022, 0 01/05/2021 (Done elsewhere) B-12 10/10/2023 10/10/2022, 0310/2021, 08/06/2020 Diabetic Eye Exam 12/06/2023 12/06/2022, , 12/06/2022, Additional history exists COVID-19 Vaccine ( season) 2024 Influenza Vaccine (FLU shot) (#1) 2024 09/06/2020, 09/06/2020 HbA1c 04/08/2025 10/08/2024, 02/0 10/2022, 11/02/2022, Additional history exists Albumin/Creatinine Ratio 10/08/202510/08/2 024, 11/14/2022, 01/19/2022, Additional history exists GFR 01/08/2026 01/08/2025, 09/21, 02/19/2023, Additional history exists RETIRED - COLONOSCOPY-ANNUAL AGES 18-100 Discontinued 08/31/2020, 08/31/2020 HPV (Gardasil) Vaccine Aged Out No lo nger eligible based on patient's age to complete this topic Hepatitis B Vaccine Aged Out No longe r eligible based on patient's age to complete this topic MENINGOCOCCAL (MENACTRA/MENVEO) Aged Out No longer eligible based on patient's age to complete this topic Meningitis B Vaccine (Bexsero/Trumemba) Aged Out No longer eligible based on patient's age to complete this topic documented as of this encounter Medical Devices Implanted Type Area Drop Hammer Setter Up Device Identifier Shelf Expiration Date Model / Serial / Lot Clip Quick 2.8mm 230cm - [id number] Implanted:Qty: 1 on 08/31/2020 by Tylor Tobias MD at ENDOSCOPY [facility] [id number] 10/21/2022 [id number] / / [id number] Angioseal Vip 8 Fr - [id number] Implanted:Qty: 1 on 09/05/2022 by Jose Osorio MD at OR [facility] [place] [place] [employer] [id number] 04/20/2023 [id number] / / [id number] documented as of this encounter Procedures Procedure Name Priority Date/Time Associated Diagnosis Comments RADIOLOGY SCANNED RESULT 01/08/2025 RADIOLOGY SCANNED RESULT 01/08/2025 RADIOLOGY SCANNED RESULT 01/08/2025 documented in this encounter Results * RADIOLOGY SCANNED RESULT (01/08/2025) 01/08/2025 us No Physician Data Unknown DIAGNOSTIC RADIOLOGY S ERVICES Final Result * RADIOLOGY SCANNED RESULT (01/08/2025) 01/08/2025 us No Physician Data Unknown DIAGNOSTIC RADIOLOGY S ERVICES Final Result * RADIOLOGY SCANNED RESULT (01/08/2025) 01/08/2025 us No Physician Data Unknown DIAGNOSTIC RADIOLOGY S ERVICES Final Result documented in this encounter Advance Directives * Full Code (Latest Code Status on File) Date Activated Date Inactivated Comments 09/04/2022 6:24 PM 09/12/2022 5:30 PM This order reflects the patients wishes and were consensually agreed upon. Question Answer Comments Discussion of Advance Directives occurred with: Patient/Family
--- OUTSIDE RECORDS SUMMARY | 2025-01-10 06:51 | External Medical Summary | Summary of Care ---
Author Name Unknown Organization [facility] Address [address] [place] [address] Phone [phone] Care Team Providers Care Spiral Binder Name Role Phone Unavailable Primary Care Provider Unavailabl e Encounter Details Date Type Department Care Team (Late st Contact Info) Description 01/09/2025 Orders Only Family Practice [facility] [address] [facility] [place] [id number] [address], [address] [facility] [place] [id number] Allergies No known active allergiesdocumented as of [...] mouth in the morning. Active Dexcom G6 Field Support Rep Device Use as directed 0 Active Dexcom [...] 09/04/2022 5:20 PM Asha Lu RN * Because of a physical, mental, or emotional condition, do you have difficulty doing errands alone such as visiting a doctors office or shopping? (15 years old or older) Answer Date of Assessment Author Yes 09/04/2022 5:20 PM Asha Lu RN documented as of this encounter Plan [...] 0 01/05/2021 (Done elsewhere) B-12 10/10/2023 10/10/2022, 03/10/2021, 08/06/2020 Diabetic Eye Exam 12/06/2023 12/06/2022, , [...] this encounter Medical Devices Implanted Type Area Field Ironworker Device Identifier Shelf Expiration Date Model / Serial / Lot Clip Quick 2.8mm 230cm - [id number] Implanted:Qty: 1 on 08/31/2020 by Tylor Tobias MD at ENDOSCOPY [facility] [employer] 10/21/2022 [id number] / / [id number] Angioseal Vip 8 Fr - [id number] Implanted:Qty: 1 on 09/05/2022 by Jose Osorio MD at [place] [facility] [place] [email or web address] [id number] 04/20/2023 [id number] / / [id number] documented as of this encounter Procedures Procedure Name Priority Date/Time Associated Diagnosis Comments XR CHEST 1 VIEW Routine 01/08/2025 documented in this encounter Results * XR CHEST 1 VIEW (01/08/2025) Anatomical Region Laterality Modality Chest Other 01/08/2025 us Agustin Pandey DO RADIOLOGY (RAD GENERAL) Fi nal Result documented in this encounter Advance Directives * Full Code (Latest Code Status on File) Date Activated Date Inactivated Comments 09/04/2022 6:24 PM 09/12/2022 5:30 PM This order reflects the patients wishes and were consensually agreed upon. Question Answer Comments Discussion of Advance Directives occurred with: Patient/Family
[2025-01-10] MEDS: CHOLECALCIFEROL 25 MCG (1000 UNITS) TAB PO SCH (08:50)
[2025-01-10] MEDS: TOCOPHERYL, DL-ALPHA 400 UNITS 180 MG CAP PO SCH (08:50)
[2025-01-10] MEDS: MAGNESIUM OXIDE 400 MG TAB PO SCH (08:50)
[2025-01-10] MEDS: FOLIC ACID 400 MCG TAB PO SCH (08:50)
[2025-01-10] MEDS: bisacodyL 5 MG TABEC PO SCH (08:53)
[2025-01-10] MEDS ORDERED: NON-FORMULARY MEDICATION (Coenzyme Q10 [Coq-10] 100 mg Capsule) PO SCH (09:00)
[2025-01-10] MEDS ORDERED: NON-FORMULARY MEDICATION (Zinc Gluconate 50 mg Tablet) PO SCH (09:00)
[2025-01-10] MEDS ORDERED: NON-FORMULARY MEDICATION (Chromium Picolinate 200 mcg Tablet) PO SCH (09:00)
[2025-01-10] MEDS ORDERED: NON-FORMULARY MEDICATION (Potassium Gluconate 595 mg (99 mg) Tablet) PO SCH (09:00)
--- NOTE | 2025-01-10 16:49 | Hospitalist Progress Note ---
Date of Service January 10, 2025 Assessment & Plan (1) Frequent falls: (2) Scalp laceration: (3) Vascular dementia: (4) HTN (hypertension): (5) DM2 (diabetes mellitus, type 2): Plan Per admitting service notes addendum: Frequent Falls - Admit to med surg - Fall precautions - CM to assist with placement options for the patient as he is unsafe to return home, feels she can not care for him herself due to worsening dementia and safety - PT/OT consults - Continue home meds - CT head reviewed and negative - will need kasia removed from scalp in 7 days, placed on 01/08, remove 01/15. - UA in process, follow to confirm no infection 01/10 No clear source of infection at this point Monitor closely Check orthostatic vital signs Check vitamin B12, folate, Check echo in light of history of aortic stenosis, grade 2-3 of systolic murmur auscultated today from progression of vascular dementia?Underlying chronic left MCA, thalamic stroke? Olanzapine added at bedtime DM II - Pt took him off metformin a year ago. Is diet controlling his food and states this has been working. She only uses Tresiba 23 U HS and maybe Novolog once daily but not often. - Check A1C - ISS with accuchecks achs Scalp Laceration x 2 - 4 [place] over the left parietal region and another small cut more posteriorly on the left side with 1 staple - needs removed ~01/15 - Wound care with dry dressing if needed Vascular Dementia, severe, without behavioral disturbance - zyprexa 2.5 mg PO scheduled HS, will also allow 1 dose IM prn tonight if agitation worsens with sundowning. 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 Dispo: From home, likely to remain in the hospital x 2 days, CM to assist with placement and discharge planning. prefers [place] or location close to [place]. Admission and Anticipated Discharge Date Admission Date: January 09, 2025 Subjective Follow-up for behavioral disturbance and recurrent falls, etc. Seen resting in bed, sitting up, not in distress Mostly confused, but calm and cooperative States he feels fine overall Denies headache, dizziness, nausea, blurring of vision, any pain around his body Review of Systems Review of Systems: all noted and negative except for above Physical Exam Physical Exam: General- oriented x 0-1, not in distress, speaks in sentences with no effort or accessory muscle use Head-scalp laceration left parietal area, sutures in place, no bleeding or discharge Eyes- anicteric Neck- no JVD Lungs- clear breath sounds bilaterally, no rales/wheezes Heart- normal rate, regular rhythm; Positive grade 2-3 L systolic murmur Abdomen- normal bowel sounds, nondistended, soft, nontender Extremities- no pretibial edema, no calf tenderness Neuro- alert, oriented x 3; no gross focal neurologic deficits Skin- warm & dry Results & Data Results & Data Vital Signs (Past 12 Hours) Vital Signs Temp Pulse Resp BP BP Pulse Ox O2 Del Method 01/10/25 15:05 36.8 C 91 H 18 129/77 95 Room Air 01/10/25 08:21 170/95 H 01/10/25 08:19 36.7 C 93 H 18 168/104 H 93 Room Air all noted and reviewed including below
[2025-01-11 07:05] LABS: Basophils # (auto) 0.06 K/uL (0.00-0.20); Basophils % (auto) 0.7 %; Eosinophils # (auto) 0.19 K/uL (0.00-0.50); Eosinophils % (auto) 2.1 %; Hematocrit (blood only) 42.8 % (42.0-52.0); Immature Granulocytes # (auto) 0.04 K/uL (0.01-0.20); Immature Granulocytes % (auto) 0.4 %; Lymphocytes # (auto) 2.62 K/uL (1.20-3.40); Lymphocytes % (auto) 29.3 %; Mean Corpuscular Hemoglobin 31.8 pg (25.0-34.0); Mean Corpuscular Volume 90.9 fL (80.0-100.0); Mean Platelet Volume 9.6 fL (9.4-12.4); Monocytes % (auto) 12.3 %; Neutrophils # (auto) 4.92 K/uL (1.40-6.50); Neutrophils % (auto) 55.2 %; Platelet Count 225 K/uL (130-400); RDW Coefficient of Variation 12.8 % (11.5-14.5); RDW Standard Deviation 42.5 fL (36.4-46.3); Red Blood Count 4.71 M/uL (4.70-6.10); White Blood Count 8.93 K/ul (4.8-10.8)
[2025-01-11 07:20] LABS: BUN Creatinine Ratio 18.8 (10-20); Calcium 8.9 mg/dl (8.6-10.3); Creatinine Clr Calc Pharmacy 82.4 ml/min; Potassium 3.7 mmol/L (3.5-5.1)
[2025-01-11 07:46] LABS: Folate (Folic Acid),Ser orPlas > 22.30 ng/ml (>5.38)
[2025-01-11 07:47] LABS: Vitamin B12 892 pg/ml (180-914)
--- NOTE | 2025-01-11 11:45 | Neurology Consultation ---
Date of Consultation January 11, 2025 Assessment & Plan (1) Vascular dementia: Patient with history of L MCA stroke, LICA stenosis with stent placed, Vascular dementia who presents for increasing falls and freezing episodes. He is observed to have some features of Parkisonism, this may relate to post stroke cause v primary. does report several first degree relatives with PD. He has masked facies, somewhat slowed movement on exam and with ambulatory dysfunction, freezing episodes possible sycnope we spoke how it may be worth further evaluation outpatient. While admitted reasonable to obtain EEG for further evaluation for risk of seizure. -- Routine EEG -- Can check vits B1, B12, D3 and supplement if necessary -- orthostatic vital signs -- Patient should follow-up with outpatient neurology for further evaluation. (2) Frequent falls: Telehealth Consultation Telehealth Information Telehealth Information: I performed this visit using a real-time telehealth connection between my location and the patients location ([facility]). After connecting through interactive tele-video, patient was identified by name and date of and/or wristband check.Patient (or authorized healthcare dealer compliance representative) was informed that this was a telemedicine visit and it was being conducted confidentially over secure lines. My office door was closed and no one else was present in the room with me.Patient (or authorized healthcare dealer compliance representative) provided consent to proceed with the visit, expressed an understanding of privacy and security of the telemedicine visit, and gave permission to have a hospital dealer compliance representative in the room in order to assist with the visit and to conduct portions of the visit, as needed. I informed the patient (or authorized healthcare dealer compliance representative) that I reviewed their record and presented the opportunity for them to ask any questions regarding the visit today. The patient agreed to participate. History of Present Illness Reason for Consultation: frequent falls, seizure-like activity Requesting Physician: Dr. quiroz Attending Physician: Luis Carlos Quiroz MD History of Present Illness Copied per admission H&P: "This is a 79 yo M with PMHx of DM II, HTN, HLD, carotid stenosis of the left, previous ischemic left MCA stroke, major depressive disorder, vascular dementia with behavioral disturbance, who presents to the hospital with complaints of frequent falls. provides the history as the patient is unable to do so due to dementia. She states that yesterday early afternoon the patient sustained a fall in their home resulting in a scalp laceration where she called ambulance and they took him to [facility]. There imaging was performed, no acute findings, and kasia were placed on he lacerations of the scalp. [facility] recommended that the patient be admitted at one of their higher care facilities and were suggesting transfer either to [place] or [place], however did not want to do that as t he pt has received care here at [facility] and preferred this hospital. Their care team at [facility] stated that that would require a direct admission and said it was not possible last evening. Pt improved to the point where he was able to walk about the ER flores at [facility] and opted to take the patient home. Once back at home, at approximately 0200 he woke up to urinate, walked to the bathroom which is next to their bedroom, and sustained another fall. EMS was called again and she requested transfer here to [facility]. Once here overnight, underwent supportive care, improved, and was stable for discharge home early this morning. At home again around 9:30 AM he nearly had a third fall, and his called EMS again and requested he come back to [facility]. Hospitalist team has been consulted for admission for possible placement. She does not feel the patient is safe to be home due to multiple falls." Speaking to at bedside, she states that he had the stroke about 4 years ago, leading up to that he had been hospitalized about 7 different times. He had a stent placed in the LICA. Since that time she has seen somewhat of a decline in his functionality and cognition. He had not fallen though until last . She states that he froze before falling and his body became stiff. No overt seizure activity. States that he does shake sometimes. She will help him with some of ADLs, such as getting dressed. He does not walk with a walker. His short term memory is poor. She states that typically he walks pretty well on his own until he had these multiple falls the last few days. She states that on , he had an episode where he passed out on the toilet, evaluated to be syncope and she was advised to increase hydration. He has not had any syncope since, she does not report he complains of lightheadedness/ pre-syncopal symptoms. Allergies Allergy/AdvReac Type Severity Reaction Status Date / Time No Known Allergies Allergy Verified 01/09/25 14:31 Home Medications Medication Instructions Recorded Confirmed Type insulin aspart U-100 100 unit/mL 0 sliding scale dose subcut TIDM 07/06/20 01/09/25 History subcutaneous cartridge (Novolog PenFill U-100 Insulin aspart) insulin degludec 100 unit/mL (3 23 unit subcut HS 07/06/20 01/09/25 History mL) subcutaneous pen (Tresiba FlexTouch U-100 insulin) cholecalciferol (vitamin D3) 25 25 mcg PO DAILY 07/25/22 01/09/25 History mcg (1,000 unit) capsule (Vitamin D3) chromium picolinate 200 mcg tablet 200 mcg PO DAILY 07/25/22 01/09/25 History coenzyme Q10 100 mg capsule 100 mg PO DAILY 07/25/22 01/09/25 History (CoQ-10) folic acid 800 mcg tablet 800 mg PO DAILY 07/25/22 01/09/25 History magnesium 250 mg tablet 250 mg PO DAILY 07/25/22 01/09/25 History milk thistle 150 mg capsule 150 mg PO DAILY 07/25/22 01/09/25 History potassium gluconate 595 mg (99 mg) 99 mg PO DAILY 07/25/22 01/09/25 History tablet vitamin E 268 mg (400 unit) capsule 400 mg PO DAILY 07/25/22 01/09/25 History zinc gluconate 50 mg tablet 50 mg PO DAILY 07/25/22 01/09/25 History atorvastatin 80 mg tablet 80 mg PO DAILY #30 tabs 07/28/22 01/09/25 Rx Patient History Medical History Carotid stenosis, symptomatic, with infarction Stroke TIA (transient ischemic attack) Vascular dementia Vertebral artery occlusion Surgical History No pertinent past surgical history Family History Father , He in his 70s of an [place] Primary Parkinson's disease Myocardial infarction Mother , age 101 No problems noted. Social History Smoking Status: Unknown if ever smoked Tobacco Type: Cigarettes Cigarettes Per Day: Pt unable to answer; Do You Dip or Chew Tobacco: No; Preferred Language: [place] Communication Ability: Effective Storage Battery Charger Required: No Beliefs That Will Affect Care: None Current Living Situation: Spouse Other Information That Helps Us Care for You: No Feels Safe at Home: Yes Safety Concerns: Feels Safe At This Time Assistive Devices: None Physical Exam Patient sleeping in bed, he states"I'm trying" when asked to wake up. He briefly opens his eyes with midline gaze, equal pupils Somewhat masked facies. Able to lift all four extremities against gravity. Able to follow simple and more complex commands. Only answers a few questions. Results & Data Vital Signs (Past 12 Hours) Vital Signs Temp Pulse Resp BP Pulse Ox O2 Del Method 01/11/25 07:04 36 C L 69 18 155/88 H 96 Room Air Laboratory Results Per Chart Diagnostic Findings CTA H/N: MPRESSION: 1. Mild plaque within the proximal bilateral cervical internal carotid arteries without stenosis. 2. No dissection within the neck. 3. No change in severe stenosis of the petrous portion of the left internal carotid artery. EEG 2020: Normal
--- NOTE | 2025-01-11 13:42 | Hospitalist Progress Note ---
Date of Service January 11, 2025 Assessment & Plan (1) Frequent falls: (2) Scalp laceration: (3) Vascular dementia: (4) HTN (hypertension): (5) DM2 (diabetes mellitus, type 2): Plan Per admitting service notes addendum: Frequent Falls - Admit to med surg - Fall precautions - CM to assist with placement options for the patient as he is unsafe to return home, feels she can not care for him herself due to worsening dementia and safety - PT/OT consults - Continue home meds - CT head reviewed and negative - will need kasia removed from scalp in 7 days, placed on 01/08, remove 01/15. - UA in process, follow to confirm no infection 01/10 No clear source of infection at this point Monitor closely Check orthostatic vital signs Check vitamin B12, folate, Check echo in light of history of aortic stenosis, grade 2-3 of systolic murmur auscultated today from progression of vascular dementia?Underlying chronic left MCA, thalamic stroke? Olanzapine added at bedtime 01/11 r/o Seizure Brain MRI, EEG, Vitamin B1, B12, D3 levels Neuro consult Orthostatic vital signs no other symptom DM II - Pt took him off metformin a year ago. Is diet controlling his food and states this has been working. She only uses Tresiba 23 U HS and maybe Novolog once daily but not often. - Check A1C - ISS with accuchecks achs Scalp Laceration x 2 - 4 Kasia over the left parietal region and another small cut more posteriorly on the left side with 1 staple - needs removed ~01/15 - Wound care with dry dressing if needed Vascular Dementia, severe, without behavioral disturbance - zyprexa 2.5 mg PO scheduled HS, will also allow 1 dose IM prn tonight if agitation worsens with sundowning. 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 Dispo: will need acute [facility] or SNF Admission and Anticipated Discharge Date Admission Date: January 09, 2025 Subjective ff up for falls, etc seen with patient's at bedside detailed history obtained from patient noted " to have tensed up, unresponsive" before falling had a similar episode last October patient noted to be drowsy since this morning per , this is baseline no other issues noted Review of Systems Review of Systems: all noted and negative except for above Physical Exam Physical Exam: General- sleeping , breathing with no effort or accessory muscle use Eyes- anicteric Neck- no JVD Lungs- clear breath sounds bilaterally, no rales/wheezes Heart- normal rate, regular rhythm; no murmurs Abdomen- normal bowel sounds, nondistended, soft, nontender Extremities- no pretibial edema, no calf tenderness Neuro- no new gross focal neurologic deficits Skin- warm & dry Results & Data Results & Data Vital Signs (Past 12 Hours) Vital Signs Temp Pulse Resp BP Pulse Ox O2 Del Method 01/11/25 07:04 36 C L 69 18 155/88 H 96 Room Air all noted and reviewed including below
--- NOTE | 2025-01-11 17:05 | Magnetic Resonance Report ---
MRI of the brain without contrast: Compared to CT dated 01/09/2025. Partially empty sella. Normal craniocervical junction. Large number of focal infarcts noted acute to subacute in timing throughout the right cerebral hemisphere. This usually indicate an embolic phenomenon. No infarcts in the cerebellum or the left hemisphere. Mild atrophy. No intracranial hemorrhage, mass or subdural collections. Impression Large number of focal infarcts of the right central hemisphere. This usually indicates an embolic phenomenon. Electronically signed by Misael Connolly 01-11-2025 5:04 PM
[2025-01-12 07:51] LABS: Estimated Average Glucose 163 mg/dl; Hemoglobin A1C 7.3 % (4.5-5.6)
[2025-01-12] MEDS: ASPIRIN 325 MG ECTAB PO STA (10:33)
[2025-01-12] MEDS: SODIUM CHLORIDE 0.9% 1,000 ML IV SCH (10:40)
[2025-01-12] MEDS: OPTIRAY 320 125ml IV ONE (11:33)
--- NOTE | 2025-01-12 11:53 | CT Scan Report ---
CT angio neck with con CLINICAL HISTORY: acute cva. COMPARISON STUDY: 09/01/2022 TECHNIQUE: Following the IV administration of 112 of Optiray, CT angiogram of the neck was performed from the aortic arch to the skull base. Images are reviewed in the axial, sagittal, and coronal plane s. 3-D MIPS images are created and assessed. IV contrast was administered without complication. All m easurements were calculated based on NASCET criteria. A dose lowering technique was utilized adherin g to the principles of ALARA. FINDINGS: There are airway secretions in the lower trachea. There is progressive mild narrowing of the left subclavian artery due to noncalcified plaque. There a re mild carotid bulb calcifications. Stent distally at the left ICA is patent. No significant narrowi ng or occlusion seen at the common or internal carotid arteries. Right vertebral artery is dominant a nd left vertebral artery is very diminutive and terminates in PICA, stable. There is stable severe fo andriy narrowing distally at the right vertebral artery. Stable multifocal narrowing at the basilar sadia ry. IMPRESSION: 1. Stent distally at the left ICA is patent. 2. Otherwise stable exam with severe focal narrowing distally at the right vertebral artery and multi focal narrowing at the basilar artery. ACT 112: Negative or not required by law. The above report was generated using voice recognition software. It may contain grammatical, syntax o r spelling errors. Electronically signed by: Toni Renee M.D. 01/12/2025 11:51 AM
--- NOTE | 2025-01-12 12:16 | CT Scan Report ---
CT angio head w con CLINICAL HISTORY: 79 years-old Male with acute cva. Acute stroke like symptoms COMPARISON STUDY: CTA neck of same day, Brain MRI 01/11/2025 TECHNIQUE: Following the IV administration of 112 cc of Optiray, CT angiogram of the brain was perfor med from the skull base to the vertex. Images are reviewed in the axial, sagittal, and coronal planes . 3-D MIPS images are created and assessed. IV contrast was administered without complication. All me asurements were obtained according to NASCET criteria. A dose lowering technique was utilized adherin g to the principles of ALARA. CT DOSE: 538.79 mGy.cm FINDINGS: CT BRAIN: The numerous right-sided cerebral infarcts are better seen on the comparison brain MRI. Involutional changes with chronic microvascular ischemic disease redemonstrated. CT ANGIOGRAM OF THE BRAIN: The imaged bilateral internal carotid arteries are patent. There is a patent stent within the petrous /cavernous segment left ICA. The bilateral anterior and middle cerebral arteries are also patent. Dev elopmentally diminutive left vertebral artery demonstrates multifocal high-grade stenosis within the V2 segment, V3 and V4 segments. Additional short segment high-grade stenosis within the mid V4 segmen t of the right vertebral artery. Additional areas of high-grade stenosis within the basilar artery. M ild multifocal stenoses of the left posterior cerebral artery. 7 mm segment of high-grade stenosis in the P1 segment right posterior cerebral artery image 113 with additional areas of high-grade stenosi s in the P2 segment. Cerebral venous sinuses are patent. Contusion with kasia of the left lateral scalp. No acute fracture identified. Mastoid air cells and middle ear cavities are clear. IMPRESSION: 1. Multifocal high-grade stenoses noted throughout the vertebrobasilar arteries and right posterior c erebral artery as above. 2. Acute right-sided cerebral infarcts are better seen on the comparison brain MRI. 3. Patent stent of the petrous/cavernous segment left ICA ACT 112: Negative or not required by law. The above report was generated using voice recognition software. It may contain grammatical, syntax o r spelling errors. Electronically signed by: Luis Borja M.D. 01/12/2025 12:14 PM
[2025-01-12] MEDS ORDERED: PHARMACIST DISCHARGE MED REC CONSULT PRN (13:36)
--- NOTE | 2025-01-12 13:56 | Electrocardiogram Report ---
Test Reason : Blood Pressure : */* mmHG Vent. Rate : 94 BPM Atrial Rate : 94 BPM P-R Int : 200 ms QRS Dur : 112 ms QT Int : 390 ms P-R-T Axes : 50 -59 92 degrees QTcB Int : 487 ms Normal sinus rhythm Left anterior fascicular block Left ventricular hypertrophy with repolarization abnormality with QRS widening Abnormal ECG When compared with ECG of 09-Jan-2025 03:31, Premature ventricular complexes are no longer Present Questionable change in initial forces of Septal leads Confirmed by Eugenio Cerda ([id number]) on 01/12/2025 1:56:18 PM Referred By: REFERRED SELF Confirmed By: Eugenio Cerda
--- NOTE | 2025-01-12 14:04 | Neurology Progress Note ---
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 Given the scattered severe intracranial athero seen in other vessels and the long-segment appearance on CTA, this is less likely to be cardioembolism. Recommend start dapt for 21 days, despite the bleeding concern from his dexcom. He can then stop the plavix and remain on aspirin. The vessel is otherwise too distal for intervention. Agree with therapy and rehab placement. -- Aspirin 81mg daily and plavix 75mg daily for 21 days, then continue aspirin monotherapy -- Lipitor 80mg daily -- Therapy evals -- Recommend optho follow-up for visual field testing in 2-3 months -- Rehab placement -- Please contact us with any further questions Subjective Telehealth Information I performed this visit using a real-time telehealth connection between my location and the patients location ([facility]). After connecting through interactive tele-video, patient was identified by name and date of and/or wristband check.Patient (or authorized healthcare sales representative [employer]) was informed that this was a telemedicine visit and it was being conducted confidentially over secure lines. My office door was closed and no one else was present in the room with me.Patient (or authorized healthcare re presentative) provided consent to proceed with the visit, expressed an understanding of privacy and security of the telemedicine visit, and gave permission to have a hospital sales representative [employer] in the room in order to assist with the visit and to conduct portions of the visit, as needed. I informed the patient (or authorized healthcare sales representative [employer]) that I reviewed their record and presented the opportunity for them to ask any questions regarding the visit today. The patient agreed to participate. Patient is somewhat sleepier today after having received olanzapine. at bedside provided the updated history and is hopeful that the patient will be able to feed himself tonight. She understands he had a stroke due to narrowing of the R RAILWAY SIGNAL OPERATOR and related this experience of narrowing of the L ICA in the past s/p stent. He was not otherwise on an antiplatelet at home because it was causing bleeding from his glucose monitor. Review of Systems +confusion, fatigue Physical Exam Alerts to voice, slow to respond, disoriented to place and month. Antigravity strength throughout, with drift in the L UE. Results & Data Vital Signs (Past 12 Hours) Vital Signs Temp Pulse Resp BP Pulse Ox O2 Del Method 01/12/25 07:00 36.4 C L 69 16 121/70 96 Room Air Diagnostic Findings MRI Brain - scattered R RAILWAY SIGNAL OPERATOR stroke CTA head and neck- intracranial athero including severe stenosis of the R RAILWAY SIGNAL OPERATOR
--- NOTE | 2025-01-12 14:17 | Electrocardiogram Report ---
Test Reason : Blood Pressure : */* mmHG Vent. Rate : 85 BPM Atrial Rate : 85 BPM P-R Int : 184 ms QRS Dur : 112 ms QT Int : 398 ms P-R-T Axes : 37 -57 67 degrees QTcB Int : 473 ms Normal sinus rhythm Left axis deviation Moderate voltage criteria for LVH, may be normal variant Cannot rule out Septal infarct (cited on or before 04-Nov-2024) Abnormal ECG When compared with ECG of 09-Jan-2025 12:48, (unconfirmed) Questionable change in initial forces of Septal leads Confirmed by Eugenio Cerda ([id number]) on 01/12/2025 2:16:35 PM Referred By: REFERRED SELF Confirmed By: Eugenio Cerda
[2025-01-12] MEDS: CLOPIDOGREL BISULFATE 75 MG TAB PO SCH (14:53)
[2025-01-12] MEDS ORDERED: PHA DELIRIUM CONSULT PRN (15:29)
--- NOTE | 2025-01-12 15:49 | Hospitalist Progress Note ---
Date of Service January 12, 2025 Assessment & Plan (1) Frequent falls: (2) Scalp laceration: (3) Vascular dementia: (4) HTN (hypertension): (5) DM2 (diabetes mellitus, type 2): Plan Per admitting service notes addendum: Recurrent falls, Aggressive behavior--> Acute CVA, multiple infarcts right cerebral hemisphere History of left MCA, thalamic stroke History of vascular dementia Has been off aspirin for 2 to 3 years per , due to GI upset Per , Recent falls preceded by patient noted to be tensing up, staring, unresponsive, then falling over Brain MRI: Large number of focal infarcts of the right central hemisphere. This usually indicates an embolic phenomenon. CT angio head and neck: 1. Multifocal high-grade stenoses noted throughout the vertebrobasilar arteries and right posterior cerebral artery as above. 2. Acute right-sided cerebral infarcts are better seen on the comparison brain MRI. 3. Patent stent of the petrous/cavernous segment left ICA 1. Stent distally at the left ICA is patent. 2. Otherwise stable exam with severe focal narrowing distally at the right vertebral artery and multifocal narrowing at the basilar artery. Discussed with neurologist Dr. Guido Brain MRI findings suggest cardioembolic phenomena Affected vessel is too distal for intervention Recommend aspirin 325 mg p.o. now, then 81 mg p.o. daily indefinitely Plavix 70 mg p.o. daily x 3-week then stop Lipitor 80 mg p.o. daily Echocardiogram ordered Transfer to telemetry unit Will need Zio patch monitor to rule out underlying A-fib Ophthalmology evaluation in 2 to 3 months Will likely need acute inpatient rehab Infectious workup negative Check orthostatic vital signs B1 level pending B12, D3, Folate normal Discontinue olanzapine started during admission due to drowsiness DM II - Pt took him off metformin a year ago. Is diet controlling his food and states this has been working. She only uses Tresiba 23 U HS and maybe Novolog once daily but not often. - Check A1C: 7.3 - ISS with accuchecks achs - will need to resume Metformin for good DM control in light of acute CVA Scalp Laceration x 2 - 4 Polly over the left parietal region and another small cut more posteriorly on the left side with 1 staple - needs removed ~01/15 - Wound care with dry dressing if needed Started with scheduled olanzapine at bedtime during admission for aggressive behavior seen at home No aggressive behavior seen while admitted, but patient has been very drowsy DC olanzapine scheduled Will only use as needed Vascular Dementia, severe, without behavioral disturbanc Intracranial atherosclerosis 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 - statin therapy with atorvastatin 80 mg daily - Cont full dose asa daily , also takes Vitamin E 400 mg daily - Ambulatory but with frequent falls as above, PT/OT to eval - Frequent reorientation and sleep hygiene while admitted, not on dementia type medications such as aricept or carbidopa/levodopa - would consider initiation of such during hospital stay DVT ppx: Lovenox daily Lines: PIV x 1 FEN/GI: DM II, easy to chew CODE: Full code - discussed with at bedside Dispo: will need acute rehab or SNF Admission and Anticipated Discharge Date Admission Date: January 09, 2025 Subjective Follow-up for behavioral change, recurrent falls, etc. Seen with patient's at the bedside Patient noted to be very sleepy since this morning Sleeping but easily awakened, tries to converse tries to open his eyes States he feels fine overall Denies headache, dizziness, nausea, focal weakness or numbness No other new symptoms Review of Systems Review of Systems: all noted and negative except for above Physical Exam Physical Exam: General- oriented x 1-2, not in distress, speaks in sentences with no effort or accessory muscle use drowsy Eyes- anicteric Neck- no JVD Lungs- clear breath sounds bilaterally, no rales/wheezes Heart- normal rate, regular rhythm;(+)holosytolic murmur Abdomen- normal bowel sounds, nondistended, soft, Extremities- no pretibial edema, no calf tenderness Neuro- alert, oriented x 1-2; no gross focal neurologic deficits Skin- warm & dry Results & Data Results & Data Vital Signs (Past 12 Hours) Vital Signs Temp Pulse Resp BP Pulse Ox O2 Del Method 01/12/25 15:23 Room Air 01/12/25 14:19 36.5 C 68 16 124/80 94 Room Air 01/12/25 07:00 36.4 C L 69 16 121/70 96 Room Air all noted and reviewed including below
--- NOTE | 2025-01-12 16:49 | Palliative Care Consultation ---
Date of Consultation January 12, 2025 Assessment & Plan (1) Palliative care by specialist: attempt made to contact pt's by phone, no answer general VM with contact info left. No return call rec'd today. Will revisit tomorrow. (2) Encounter for assessment of healthcare decision-making capacity: Met with pt at bedside, no visitors present. He was lethargic but arousable, oriented to person only. Patient exhibits current lack of decisional capacity based on the inability to convey understanding of personal PMHx, current medical condition, treatment options nor the risks / benefits of those options, and lack of ability to make decisions based on such knowledge. Hospital does not have written documentation of patient wishes concerning his chosen proxy for medical decisions. Per PA [id number], in absence of written documentation of patient wishes, pt's proxy for medical decisions would be his Ana Maria Oconnor ([phone]). Pt does currently require a proxy for medical decisions. Plan Palliative care will continue to follow for GOC discussions, and pt / family support. History of Present Illness Reason for Consultation: goals of care Requesting Physician: Luis Carlos Quiroz MD Attending Physician: Luis Carlos Quiroz MD History of Present Illness Mr. Oconnor is a 79 yo M with PMHx of DM II, HTN, HLD, carotid stenosis of the left, previous ischemic left MCA stroke, major depressive disorder, vascular dementia with behavioral disturbance, who presents [facility] 2/2 frequent falls. In early afternoon 01/08 the patient sustained a fall with scalp laceration in their home which was repaired with kasia at [facility] ED, wher imaging was performed with no acute findings. Pt was discharged from ED to patient's home, where at approximately 0200 he woke up to urinate and sustained another fall. EMS was called again and she requested transfer here to [facility]. 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 At home again around 9:30 AM he nearly had a third fall, and his called EMS again and requested he come back to [facility] for evaluation for SNF placement. Palliative care was consulted for GOC discussion. Allergies Allergy/AdvReac Type Severity Reaction Status Date / Time No Known Allergies Allergy Verified 03/21/25 14:31 Home Medications Medication Instructions Recorded Confirmed Type insulin aspart U-100 100 unit/mL 0 sliding scale dose subcut TIDM 07/06/20 01/09/25 History subcutaneous cartridge (Novolog PenFill U-100 Insulin aspart) insulin degludec 100 unit/mL (3 23 unit subcut HS 07/06/20 01/09/25 History mL) subcutaneous pen (Tresiba FlexTouch U-100 insulin) cholecalciferol (vitamin D3) 25 25 mcg PO DAILY 07/25/22 01/09/25 History mcg (1,000 unit) capsule (Vitamin D3) chromium picolinate 200 mcg tablet 200 mcg PO DAILY 07/25/22 01/09/25 History coenzyme Q10 100 mg capsule 100 mg PO DAILY 07/25/22 01/09/25 History (CoQ-10) folic acid 800 mcg tablet 800 mg PO DAILY 07/25/22 01/09/25 History magnesium 250 mg tablet 250 mg PO DAILY 07/25/22 01/09/25 History milk thistle 150 mg capsule 150 mg PO DAILY 07/25/22 01/09/25 History potassium gluconate 595 mg (99 mg) 99 mg PO DAILY 07/25/22 01/09/25 History tablet vitamin E 268 mg (400 unit) capsule 400 mg PO DAILY 07/25/22 01/09/25 History zinc gluconate 50 mg tablet 50 mg PO DAILY 07/25/22 01/09/25 History atorvastatin 80 mg tablet 80 mg PO DAILY #30 tabs 07/28/22 01/09/25 Rx Patient History Medical History Carotid stenosis, symptomatic, with infarction Stroke TIA (transient ischemic attack) Vascular dementia Vertebral artery occlusion Surgical History No pertinent past surgical history Family History Father , He in his 70s of an [place] Primary Parkinson's disease Myocardial infarction Mother , age 101 No problems noted. 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 Marketing Required: No Beliefs That Will Affect Care: None Current Living Situation: Spouse Other Information That Helps Us Care for You: No Feels Safe at Home: Yes Safety Concerns: Feels Safe At This Time Assistive Devices: None Review of Systems Review of Systems: Unobtainable due to cognitive status Physical Exam Constitutional: well developed, well nourished, + ill appearing and + lethargic; no acute distress pt drowsy, arousable but only spoke in single words at a whisper Eyes: PERRL, conjunctivae normal, anicteric sclerae ENMT: external ear and nose normal, oropharynx normal Neck: trachea midline, no thyromegaly Respiratory: normal respiratory effort, lungs clear to auscultation shallow respirations Cardiovascular: RRR, no murmur, no edema Gastrointestinal (Abdomen): normal bowel sounds, soft, nontender, no hepatosplenomegaly Skin: no rashes, warm and dry Neurologic: + confused Results & Data Vital Signs (Past 12 Hours) Vital Signs Temp Pulse Pulse Resp BP Pulse Ox O2 Del Method 01/12/25 15:23 Room Air 01/12/25 15:16 69 01/12/25 14:19 36.5 C 68 16 124/80 94 Room Air 01/12/25 07:00 36.4 C L 69 16 121/70 96 Room Air Laboratory Results Abnormal lab results 01/12/25 Range/Units 07:10 Hemoglobin A1c 7.3 H (4.5-5.6) % Diagnostic Findings Chest X-Ray 01/09/25 12:36 XR chest 1V portable CLINICAL HISTORY: weakness, falls COMPARISON STUDY: 11/04/2024 FINDINGS: There is mild aortic ectasia. Heart size and pulmonary vasculature are normal. No effusion, consolidation, or pneumothorax. IMPRESSION: No acute findings. ACT 112: Negative or not required by law. Electronically signed by: Toni Renee M.D. 01/09/2025 1:[address] 01/09/25 12:49 CT OF THE HEAD WITHOUT CONTRAST CLINICAL HISTORY: Fall. COMPARISON STUDY: MRI of the brain September 01, 2022. Head CT January 09, 2025 at 4:[address] DOSE: 625.8 mGy.cm TECHNIQUE: Helical axial images of the head were obtained without IV contrast. Automated exposure control was utilized for the study. A dose lowering technique was utilized adhering to the principles of ALARA. FINDINGS: No acute intracranial hemorrhage, midline shift or mass effect is present. The ventricular system is stable. White matter hypodensity suggests small vessel disease. Foci of encephalomalacia within the left frontal lobe are unchanged. The basal cisterns are patent. No extra-axial collections are present. There are no findings to suggest acute dural sinus thrombosis or acute territorial infarct. There are no calvarial fractures. Left scalp lacerations with skin kasia are noted. IMPRESSION: 1. No acute intracranial findings. 2. No calvarial fractures. ACT 112: Negative or not required by law. Electronically signed by: Chevy Tobias M.D. 01/09/2025 1:14 PM Brain MRI 01/11/25 11:13 MRI of the brain without contrast: Compared to CT dated 01/09/2025. Partially empty sella. Normal craniocervical junction. Large number of focal infarcts noted acute to subacute in timing throughout the right cerebral hemisphere. This usually indicate an embolic phenomenon. No infarcts in the cerebellum or the left hemisphere. Mild atrophy. No intracranial hemorrhage, mass or subdural collections. Impression Large number of focal infarcts of the right central hemisphere. This usually indicates an embolic phenomenon. Electronically signed by Misael Connolly 01-11-2025 5:04 PM Head CTA 01/12/25 10:07 CT angio head w con CLINICAL HISTORY: 79 years-old Male with acute cva. Acute stroke like symptoms COMPARISON STUDY: CTA neck of same day, Brain MRI 01/11/2025 TECHNIQUE: Following the IV administration of 112 cc of Optiray, CT angiogram of the brain was performed from the skull base to the vertex. Images are reviewed in the axial, sagittal, and coronal planes. 3-D MIPS images are created and assessed. IV contrast was administered without complication. All measurements were obtained according to NASCET criteria. A dose lowering technique was uti lized adhering to the principles of ALARA. CT DOSE: 538.79 mGy.cm FINDINGS: CT BRAIN: The numerous right-sided cerebral infarcts are better seen on the comparison brain MRI. Involutional changes with chronic microvascular ischemic disease redemonstrated. CT ANGIOGRAM OF THE BRAIN: The imaged bilateral internal carotid arteries are patent. There is a patent stent within the petrous/cavernous segment left ICA. The bilateral anterior and middle cerebral arteries are also patent. Developmentally diminutive left vertebral artery demonstrates multifocal high-grade stenosis within the V2 se gment, V3 and V4 segments. Additional short segment high-grade stenosis within the mid V4 segment of the right vertebral artery. Additional areas of high-grade stenosis within the basilar artery. Mild multifocal stenoses of the left posterior cerebral artery. 7 mm segment of high-grade stenosis in the P1 segment right posterior cerebral artery image 113 with additional areas of high-grade stenosis in the P2 segment. Cerebral venous sinuses are patent. Contusion with kasia of the left lateral scalp. No acute fracture identified. Mastoid air cells and middle ear cavities are clear. IMPRESSION: 1. Multifocal high-grade stenoses noted throughout the vertebrobasilar arteries and right posterior cerebral artery as above. 2. Acute right-sided cerebral infarcts are better seen on the comparison brain MRI. 3. Patent stent of the petrous/cavernous segment left ICA ACT 112: Negative or not required by law. The above report was generated using voice recognition software. It may contain grammatical, syntax or spelling errors. Electronically signed by: Luis Borja M.D. 01/12/2025 12:14 PM Neck CTA 01/12/25 10:07 CT angio neck with con CLINICAL HISTORY: acute cva. COMPARISON STUDY: 09/01/2022 TECHNIQUE: Following the IV administration of 112 of Optiray, CT angiogram of the neck was performed from the aortic arch to the skull base. Images are reviewed in the axial, sagittal, and coronal planes. 3-D MIPS images are created and assessed. IV contrast was administered without complication. All measurements were calculated based on NASCET criteria. A dose lowering technique was utilized adhering to the principles of ALARA. FINDINGS: There are airway secretions in the lower trachea. There is progressive mild narrowing of the left subclavian artery due to noncalcified plaque. There are mild carotid bulb calcifications. Stent distally at the left ICA is patent. No significant narrowing or occlusion seen at the common or internal carotid arteries. Right vertebral artery is dominant and left vertebral artery is very diminutive and terminates in PICA, stable. There is stable severe focal narrowing distally at the right vertebral artery. Stable multifocal narrowing at the basilar artery. IMPRESSION: 1. Stent distally at the left ICA is patent. 2. Otherwise stable exam with severe focal narrowing distally at the right vertebral artery and multifocal narrowing at the basilar artery. ACT 112: Negative or not required by law. The above report was generated using voice recognition software. It may contain grammatical, syntax or spelling errors. Electronically signed by: Toni Renee M.D. 01/12/2025 11:51 AM Medications Administered Current Inpatient Medications Acetaminophen (Acetaminophen 325 Mg Tab) 650 mg PO Q4H PRN PRN Reason: Moderate Pain (Scale 4, 5, 6) Stop: 02/08/25 17:53 Aspirin (Aspirin 81 Mg Ectab) 81 mg PO QAM [facility] Stop: 02/12/25 08:59 Atorvastatin Calcium (Atorvastatin 40 Mg Tab) 80 mg PO DAILY [facility] Stop: 02/08/25 17:59 Last Admin: 01/12/25 10:31 Dose: Not Given Bisacodyl (Bisacodyl 5 Mg Tabec) 5 mg PO DAILY [facility] Stop: 02/09/25 08:59 Last Admin: 01/12/25 10:32 Dose: Not Given Clopidogrel Bisulfate (Clopidogrel Bisulfate 75 Mg Tab) 75 mg PO QAM [facility] Stop: 02/11/25 14:14 Last Admin: 01/12/25 14:53 Dose: 75 mg Enoxaparin Sodium (Enoxaparin Inj 40 Mg/0.4 Ml Syr) 40 mg SQ QAM [facility] Stop: 02/12/25 08:59 Folic Acid (Folic Acid 400 Mcg Tab) 800 mcg PO DAILY [facility] Stop: 02/09/25 08:59 Last Admin: 01/12/25 10:33 Dose: Not Given Magnesium Oxide (Magnesium Oxide 400 Mg Tab) 400 mg PO DAILY [facility] Stop: 02/09/25 08:59 Last Admin: 01/12/25 10:33 Dose: Not Given Melatonin (Melatonin 3 Mg Tab) 3 mg PO HS PRN PRN Reason: Sleep Stop: 02/11/25 23:36 Miscellaneous (Pha Delirium Consult) 1 ea N/A PRN PRN PRN Reason: Consult Stop: 02/11/25 15:28 Miscellaneous Information (Pharmacist Discharge Med Rec Consult) 1 each N/A UD PRN PRN Reason: Consult Stop: 02/11/25 13:35 Olanzapine (Olanzapine 10 Mg/2.1 Ml Sdv) 2.5 mg IM HS PRN PRN Reason: Agitation Ondansetron HCl (Ondansetron Inj 2 Mg/Ml 2 Ml Vial) 4 mg IV Q4H PRN PRN Reason: Nausea And Vomiting Stop: 02/08/25 17:53 Vitamin D (Cholecalciferol 25 Mcg (1000 Units) Tab) 25 mcg PO DAILY [facility] Stop: 02/09/25 08:59 Last Admin: 01/12/25 10:32 Dose: Not Given Vitamin E (Tocopheryl, Dl-Alpha 400 Units 180 Mg Cap) 180 mg PO DAILY [facility] Stop: 02/09/25 08:59 Last Admin: 01/12/25 10:32 Dose: Not Given PG Care Time/CCT Total # of Minutes Spent Total Time Spent with Patient: Total time spent is greater than 50% in coordination of care (as documented) at patient's floor/unit and/or counseling patient: [place] [address] IN/OBS CONSULT LVL 3,45M Patient Type New History Problem Focused Exam Problem Focused Medical Decision Making Low Complexity Diagnoses Palliative care by specialist Z51.5 Encounter for assessment of healthcare decision-making capacity Z02.79
[2025-01-13 07:03] LABS: Basophils # (auto) 0.05 K/uL (0.00-0.20); Basophils % (auto) 0.6 %; Eosinophils # (auto) 0.22 K/uL (0.00-0.50); Eosinophils % (auto) 2.5 %; Hemoglobin 14.7 g/dl (14.0-18.0); Immature Granulocytes # (auto) 0.03 K/uL (0.01-0.20); Immature Granulocytes % (auto) 0.3 %; Lymphocytes # (auto) 2.01 K/uL (1.20-3.40); Lymphocytes % (auto) 22.6 %; Mean Corpuscular Hemoglobin 30.9 pg (25.0-34.0); Mean Corpuscular Hgb Conc 34.2 g/dL (32.0-36.0); Mean Corpuscular Volume 90.3 fL (80.0-100.0); Mean Platelet Volume 9.5 fL (9.4-12.4); Monocytes # (auto) 0.89 K/uL (0.11-0.59); Neutrophils # (auto) 5.71 K/uL (1.40-6.50); Platelet Count 231 K/uL (130-400); RDW Coefficient of Variation 12.4 % (11.5-14.5); RDW Standard Deviation 41.1 fL (36.4-46.3); Red Blood Count 4.76 M/uL (4.70-6.10); White Blood Count 8.91 K/ul (4.8-10.8)
[2025-01-13 07:24] LABS: BUN Creatinine Ratio 17.6 (10-20); Calcium 8.8 mg/dl (8.6-10.3); Chol HDL Ratio 6.5 (0-5); Creatinine Clr Calc Pharmacy 72.4 ml/min; Potassium 3.7 mmol/L (3.5-5.1)
[2025-01-13] MEDS: ENOXAPARIN INJ 40 MG/0.4 ML SYR SQ SCH (10:32)
[2025-01-13] MEDS: ASPIRIN 81 MG ECTAB PO SCH (10:32)
--- NOTE | 2025-01-13 11:22 | Pharmacy Report ---
- Date of Service January 13, 2025 - Pharmacy CVA/TIA Medication Review Medications to Prevent Stroke handout has been added to the patients discharge packet. Antiplatelet(s) * aspirin 81mg PO QAM * clopidogrel 75mg PO daily * DAPT x 3weeks then ASA monotherapy per Neurology Cholesterol * High intensity statin: atorvastatin 80 mg daily DVT Prophylaxis * Enoxaparin SQ Therapeutic Anticoagulation * No history of Afib/Aflutter noted Type 2 Diabetes * Patient has T2DM, but per Martina Mckenzie NP, a diabetes medication with proven CVD benefit will be deferred to their outpatient provider due to familiarity with risks/benefits of such therapies. "Medications to prevent stroke" handout has already been added to the patient's discharge packet, which instructs the patient to follow up with their outpatient provider to evaluate which diabetes medication with proven CVD benefit is best for them
--- NOTE | 2025-01-13 14:55 | Hospitalist Progress Note ---
Date of Service January 13, 2025 Assessment & Plan (1) Acute CVA (cerebrovascular accident): (2) Frequent falls: (3) Scalp laceration: (4) Vascular dementia: (5) DM2 (diabetes mellitus, type 2): (6) HTN (hypertension): Plan 79 year old male with PMH significant for DMII, HTN, HLD, left carotid artery stenosis, MDD, vascular dementia with behavioral disturbance, and previous ischemic left MCA stroke who presented to the ED on 01/09 for multiple falls at home. He was found to have an acute CVA due to multiple infarcts in the right cerebral hemisphere Recurrent falls secondary to acute CVA, multiple infarcts right cerebral hemisphere History of left MCA stroke Vascular dementia Infectious workup negative, B12/D3/folate normal, B1 level pending Telemetry revealing NSR with PVCs at rates of 70-80. Echo ordered. Zio patch to rule out underlying Afib. Patient was started on olanzapine this admission for aggressive behavior seen at home but is now PRN due to drowsiness Neurology consulted: Continue Plavix 70mg daily x3 weeks then stop and continue baby aspirin monotherapy Continue baby aspirin and atorvastatin Recommend ophthalmology follow up in 2-3 months PT/OT recommending inpatient rehab/SNF. Case management involved. Scalp laceration 4 kasia over the left parietal region and another small cut more posteriorly on the left side with 1 staple Staple removal ~01/15 Wound care with dry dressing if needed DMII A1C 7.3 Sliding scale insulin Patient was previously on metformin but stopped taking a year ago per HTN BP controlled. Not on BP medication DVT Prophylaxis: subQ lovenox Code Status: FULL CODE Disposition: Medically cleared for discharge. Awaiting SNF placement. Patient seen in collaboration with Dr Andre. Please see addendum. I spent a total of 50 minutes coordinating, documenting and providing care for this patient excluding time spent in the performance of separately billed services or time spent by another provider/QHP. Admission and Anticipated Discharge Date Admission Date: January 09, 2025 Supervising Physician Co-Signing Physician Notes Patient seen and examined at bedside. Patient appears comfortable, states he feels ok overall. On exam, eating in room, conversational, oriented to person only, lacks capacity on first and repeat evaluation. Advanced Care Plannin minutes spent by this provider discussing patient goals and values. Discussed patients condition, including significant stroke burden and declining mentation. Patient has moderate to severe vascular dementia. Patient still eating, drinking, behavioral outbursts present but not persistent, minimal to no recent weight loss. Patient is legally to , has 3 children to prior marriage. No contact information for other children available in this chart or [facility] chart (to best of my ability to look), legally and children from prior marriage are equal in designation in [place], if reasonably available. At this time, only one available to this provider.. Will proceed with placement. Had long conversation with at bedside, patient and have been living together for 10 years. of sound mind and has been taking care of Mr. Oconnor. While patient does not have capacity, patient expresses to this provider that his wish is to have his assist him with decision making if needed. is going to notify patient's children of condition tonight and look for an advanced directive. I have seen and discussed the case with the collaborating advanced practitioner. I agree with the above H&P. I have reviewed and confirmed the patients medical history, the findings on physical examination, and the patients diagnosis and treatment plan with Martina SHARPE and agree with the information documented. I spent a total of 20 minutes coordinating, documenting, and providing care for this patient excluding time spent in the performance of separately billed services. All of the aforementioned completed outside of collaborating with the assigned advanced practitioner for a full treatment plan. I have reviewed the advanced practitioner's documentation, and I agree with, and take responsibility for the plan of care I spent a total of 45 minutes providing advanced care planning to the patient and/or family, including [id number] time discussing the patient's health status, prognosis, and treatment options. This time includes specific activities such as: discussing advance directives, goals of care, prognostication, and end-of-life planning. Subjective Patient seen sitting up in bed eating breakfast Patient knows his name but is otherwise disoriented and confused Unable to have coherent conversation to review systems No concern from nursing Review of Systems Review of Systems: Unobtainable due to cognitive status Physical Exam Physical Exam: VITALS: Reviewed and VSS. GEN: Well-developed, male, NAD. PSYCH: Oriented to person. Speaks clearly but disorganized thoughts. HEENT: Left forehead with laceration and [address]. Sclera white and conjunctiva pink. Nares without rhinorrhea. Nasal and oral mucosa pink. NECK: Supple, with no masses. CV: RRR, +murmur LUNGS: CTAB, no w/r/c. ABD: Soft, NT/ND, NBS, no masses or organomegaly. SKIN: Warm, well perfused. No skin rashes or abnormal lesions. MSK: No deformities, Normal gait. EXT: No clubbing, cyanosis, or edema. NEURO: Unable to lean forward in bed. Max assist. Results & Data Results & Data Vital Signs (Past 12 Hours) Vital Signs Temp Pulse Pulse Pulse Resp BP BP 01/13/25 11:38 36.3 C L 80 18 133/77 01/13/25 07:36 36.8 C 66 18 147/75 H 01/13/25 07:00 83 01/13/25 03:59 36.7 C 79 18 168/91 H Pulse Ox O2 Del Method 01/13/25 11:38 98 Room Air 01/13/25 07:36 98 Room Air 01/13/25 07:00 01/13/25 03:59 93 Room Air Laboratory Results Short CBC 01/13/25 Range/Units 06:14 WBC 8.91 (4.8-10.8) K/ul Hgb 14.7 (14.0-18.0) g/dl Hct 43.0 (42.0-52.0) % Plt Count 231 (130-400) K/uL BMP 01/13/25 06:14 Sodium 137 Potassium 3.7 Chloride 103 Carbon Dioxide 27 BUN 16 Creatinine 0.91 Glucose 166 H Calcium 8.8 I have independently reviewed and interpreted patient's labs including CBC and BMP.. Medications Administered Current Inpatient Medications Acetaminophen (Acetaminophen 325 Mg Tab) 650 mg PO Q4H PRN PRN Reason: Moderate Pain (Scale 4, 5, 6) Stop: 02/08/25 17:53 Aspirin ([facility]spirin 81 Mg [facility]ab) [facility]: 02/12/25 08:59 Last Admin: 01/13/25 10:32 Dose: 81 mg Atorvastatin Calcium (Atorvastatin 40 Mg Tab) 80 mg PO DAILY [facility] Stop: 02/08/25 17:59 Last Admin: 01/13/25 08:46 Dose: 80 mg Bisacodyl (Bisacodyl 5 Mg Tabec) 5 mg PO DAILY [facility] Stop: 02/09/25 08:59 Last Admin: 01/13/25 08:46 Dose: 5 mg Clopidogrel Bisulfate (Clopidogrel Bisulfate 75 Mg Tab) 75 mg PO QAM [facility] Stop: 02/11/25 14:14 Last Admin: 01/13/25 08:46 Dose: 75 mg Enoxaparin Sodium (Enoxaparin Inj 40 Mg/0.4 Ml Syr) 40 mg SQ QAM [facility] Stop: 02/12/25 08:59 Last Admin: 01/13/25 10:32 Dose: 40 mg Folic Acid (Folic Acid 400 Mcg Tab) 800 mcg PO DAILY [facility] Stop: 02/09/25 08:59 Last Admin: 01/13/25 08:46 Dose: 800 mcg Magnesium Oxide (Magnesium Oxide 400 Mg Tab) 400 mg PO DAILY [facility] Stop: 02/09/25 08:59 Last Admin: 01/13/25 08:47 Dose: 400 mg Melatonin (Melatonin 3 Mg Tab) 3 mg PO HS PRN PRN Reason: Sleep Stop: 02/11/25 23:36 Miscellaneous Information (Pharmacist Discharge Med Rec Consult) 1 each N/A UD PRN PRN Reason: Consult Stop: 02/11/25 13:35 Olanzapine (Olanzapine 10 Mg/2.1 Ml Sdv) 2.5 mg IM HS PRN PRN Reason: Agitation Ondansetron HCl (Ondansetron Inj 2 Mg/Ml 2 Ml Vial) 4 mg IV Q4H PRN PRN Reason: Nausea And Vomiting Stop: 02/08/25 17:53 Vitamin D (Cholecalciferol 25 Mcg (1000 Units) Tab) 25 mcg PO DAILY [facility] Stop: 02/09/25 08:59 Last Admin: 01/13/25 08:46 Dose: 25 mcg Vitamin E (Tocopheryl, Dl-Alpha 400 Units 180 Mg Cap) 180 mg PO DAILY [facility] Stop: 02/09/25 08:59 Last Admin: 01/13/25 08:46 Dose: 180 mg
[2025-01-13] MEDS ORDERED: GLUCAGON FOR INJ 1 MG VIAL SQ PRN (15:16)
[2025-01-13] MEDS ORDERED: GLUCOSE 10 TAB/TUBE PO PRN (15:16)
[2025-01-13] MEDS ORDERED: GLUCOSE 40% GEL 15 GM TUBE PO PRN (15:16)
[2025-01-13] MEDS ORDERED: DEXTROSE 50% 50 ML SYRINGE IV PRN (15:16)
[2025-01-13] MEDS ORDERED: CARBOHYDRATES FOR HYPOGLYCEMIA PO PRN (15:16)
[2025-01-13] MEDS: INSULIN ASPART PER UNIT CHARGE SC SCH (18:21)
--- NOTE | 2025-01-13 21:19 | Palliative Family Discussion ---
Date of Service January 13, 2025 Patient Directed Conference Time of Meetin:00 - 13:45 Participants: Anastasia Lugo AGACNP Patient participation: NO Patient Support System: spouse Ana Maria Oconnor Other Healthcare Provider Participation: None Meeting Location: waiting room Advanced Directive available: No If yes, descriptors: will try to locate AD, unclear if pt has one at all. The patient's surrogate medical decision maker participated: spouse Legally authorized health care proxy: spouse and 3 adult children. Other surrogate: n/a A family meeting was held for JC Fitch PENELOPE. This meeting was necessary for determining the appropriate course of treatment. Topics of Discussion Topics of Discussion: 1. GOC 2. decisional capacity 3. AD 3. MDM proxy hierarchy per [place] ACT 169 Met with pt's in waiting area. Introduced Palliative Medicine and explained our role in advanced care planning, symptom management and navigation through the progression of life limiting disease. Patient and/or family were receptive to palliative services for goals of care discussions. Reviewed we are different from hospice, a home health nurse visiting service. Ana Maria shared that she and the pt have known each other for 10y and been for eight years. She shared that the pt had 3 prior marriages resulting in 2 adult daughters and one adult son. She shared that to her knowledge the pt does have a will but does not have an advanced directive. She shared understanding that the pt has suffered "multiple mini-strokes and nothing can be done to fix it". She shared concern that perhaps he has been having ministrokes for many months and she was missing signs. We discussed the pt's medical history and that given his many comorbidities and mostly sedentary life, he was at high risk for embolic events and still is. Ana Maria expressed concern for pt's future quality of life stating that he was always strong willed and independent, call ing him the "emerald of the alpha men". She shared that if he knew this would be the best he would ever be cognitively that he would not want to go on like this, but she is holding hope that he will get stronger and be able to return home with her at some point We discussed the pt's family dynamics and Ana Maria shared that he has three adult children and 6 siblings, but is very private man and does not discuss his private affairs outside the home. She shared that it is the pt's nature to be private about his health and that he rarely speaks with any of his family. She shared that pt's step son is the only one who "behaves like family" and that he calls and speaks at length with the pt on phone frequently. She initially shared 2 of the pt's biological children live nearby but do not visit or call. She then stated that his biological son who lives in [facility] [place] and speaks with the pt weekly by phone to keep in touch. She also stated that pt. moved to [place] from [place] after his 3rd divorce to be closer to his daughter who only lives a few miles from them and does visit but "only stays for 15 minutes".. Many conflicting statements vs corrections were noted through conversation. Helped Ana Maria understand that patient currently lacks decisional capacity and DOES require a proxy for medical decisions. based on the inability to convey understanding of personal PMHx, current medical condition, treatment options nor the risks / benefits of those options, and lack of ability to make decisions based on such knowledge. Hospital does not have written documentation of patient wishes concerning his chosen proxy for medical decisions. Per [place] [id number], in absence of written documentation of patient wishes, pt's proxy for medical decisions would be his Ana Maria Oconnor AND his adult biological daughters Elza Vital ([facility] Leydi Bueno ([place], [place]) and son Samuel Oconnor ([place]) with equal authority. Discussed with Ana Maria the need to at least offer the opportunity for his children to be involved in medical decisions for the pt per [place] Act 169. Ana Maria requested opportunity to call the children and set up a joint meeting, which I encouraged. Ana Maria also shared that she would check the pt's safe to see if perhaps he did complete a living will. I encouraged that she check for it and bring it to the hospital if able. Plan to readdress [facility], with possible family meeting in the upcoming days. Other Content of Meetin. Opportunity given for participants to speak and ask questions. 2. Participants were assured of attention to patient comfort. 3. Reassurance provided. 4. Support was provided for informed, good-raj decisions. 5. Emotions expressed by family were acknowledged and addressed. 6. Follow-up Outpatient: TBD 7. Plan of Care: Continue current level of care, will revisit [facility] with family on 01/14 Time Involved in Meeting: I spent 50 minutes overall addressing this case: 10 in medical data review/discussion with referring provider(s) and/or preparation for the visit 40 in direct interaction with the patient's 40 Advance Care Planning/Goals of Care discussions as detailed above in note (must be >16min) 5 in subsequent review and synthesis of assessment and plan 5 in communicating with other providers regarding the patient's case: CARMELITA MOSCOSO, attending
[2025-01-13] MEDS: MELATONIN 3 MG TAB PO PRN (23:09)
[2025-01-14] MEDS: POTASSIUM CHLORIDE CRTAB 20 MEQ TABCR PO STA (01:25)
[2025-01-14 01:42] LABS: Magnesium 1.9 mg/dl (1.7-2.4)
[2025-01-14] MEDS: MAGNESIUM SULFATE / D5W 1 GM/100 ML BAG IV ONE (02:54)
--- NOTE | 2025-01-14 11:31 | Hospitalist Progress Note ---
Date of Service January 14, 2025 Assessment & Plan (1) Acute CVA (cerebrovascular accident): (2) Frequent falls: (3) Scalp laceration: (4) Vascular dementia: (5) DM2 (diabetes mellitus, type 2): (6) HTN (hypertension): Plan 79 year old male with PMH significant for DMII, HTN, HLD, left carotid artery stenosis, MDD, vascular dementia with behavioral disturbance, and previous ischemic left MCA stroke who presented to the ED on 01/09 for multiple falls at home. He was found to have an acute CVA due to multiple infarcts in the right cerebral hemisphere Recurrent falls secondary to acute CVA, multiple infarcts right cerebral hemisphere History of left MCA stroke Vascular dementia Infectious workup negative, B12/D3/folate normal, B1 level pending Telemetry revealing NSR with PVCs at rates of 60-80. Echo completed and unchanged from previous in July 2022. Zio patch recommended to rule out underlying Afib Patient was started on olanzapine this admission for aggressive behavior seen at home but is now discontinued due to drowsiness Increased drowsiness again today (discovered patient received melatonin last night), resulting in poor PO intake and urine output - ordered [facility] Neurology consulted: Continue Plavix 70mg daily x3 weeks then stop and continue baby aspirin monotherapy Continue baby aspirin and atorvastatin Recommend ophthalmology follow up in 2-3 months for visual field acuity PT/OT recommending inpatient rehab/SNF. Case management involved. Scalp laceration 4 kasia over the left parietal region and another small cut more posteriorly on the left side with 1 staple Staple removal ~01/15 Wound care with dry dressing if needed DMII A1C 7.3 Sliding scale insulin Patient was previously on metformin but stopped taking a year ago per HTN BP controlled. Not on BP medication DVT Prophylaxis: subQ lovenox Code Status: FULL CODE Disposition: Medically cleared for discharge. Awaiting rehab/SNF placement. Patient seen in collaboration with Dr Andre. Please see addendum. I spent a total of 50 minutes coordinating, documenting and providing care for this patient excluding time spent in the performance of separately billed services or time spent by another provider/QHP. Admission and Anticipated Discharge Date Admission Date: January 09, 2025 Supervising Physician Co-Signing Physician Notes Patient seen and examined at bedside. Discussed case at length with . was able to bring in healthcare power of environmental attorney and living will paperwork. As suspected, and consistent with patient wishes at bedside from yesterday, is indeed healthcare power of environmental attorney for patient. discussed findings with patients children from other marriages. [facility] is to find rehab for patient, and has every intention of taking patient home after rehab stay. On exam, patient is tired today, otherwise comfortable. Continue supportive care, working on dispo, appreciate case management assistance. I have seen and discussed the case with the collaborating advanced practitioner. I agree with the above H&P. I have reviewed and confirmed the patients medical history, the findings on physical examination, and the patients diagnosis and treatment plan with Martina SHARPE and agree with the information documented. I spent a total of 20 minutes coordinating, documenting, and providing care for this patient excluding time spent in the performance of separately billed services. All of the aforementioned completed outside of collaborating with the assigned advanced practitioner for a full treatment plan. I have reviewed the advanced practitioner's documentation, and I agree with, and take responsibility for the plan of care Subjective Patient seen sitting up in bed but in and out of sleep Patient knows his name but is otherwise disoriented and confused Unable to have coherent conversation to review systems Review of Systems Review of Systems: Unobtainable due to cognitive status Physical Exam Physical Exam: VITALS: Reviewed and VSS. GEN: Well-developed, male, NAD. PSYCH: Oriented to person. Speaks clearly but disorganized thoughts. HEENT: Left forehead with laceration and [address] Sclera white and conjunctiva pink. Nares without rhinorrhea. Nasal and oral mucosa pink. NECK: Supple, with no masses. CV: RRR, +murmur LUNGS: CTAB, no w/r/c. ABD: Soft, NT/ND, NBS, no masses or organomegaly. SKIN: Warm, well perfused. No skin rashes or abnormal lesions. MSK: No deformities, Normal gait. EXT: No clubbing, cyanosis, or edema. NEURO: Unable to lean forward in bed. Max assist. Results & Data Results & Data Vital Signs (Past 12 Hours) Vital Signs Temp Pulse Pulse Resp BP BP Pulse Ox 01/14/25 09:15 01/14/25 08:08 36.9 C 70 16 134/84 95 01/14/25 07:00 68 01/14/25 03:20 36.8 C 73 18 134/81 96 01/14/25 01:09 36.3 C L 72 16 135/76 95 O2 Del Method 01/14/25 09:15 Room Air 01/14/25 08:08 Room Air 01/14/25 07:00 01/14/25 03:20 Room Air 01/14/25 01:09 Room Air Medications Administered Current Inpatient Medications Acetaminophen (Acetaminophen 325 Mg Tab) 650 mg PO Q4H PRN PRN Reason: Moderate Pain (Scale 4, 5, 6) Stop: 02/08/25 17:53 Aspirin (Aspirin 81 Mg Ectab) 81 mg PO QAM [facility] Stop: 02/12/25 08:59 Last Admin: 01/14/25 09:17 Dose: 81 mg Atorvastatin Calcium (Atorvastatin 40 Mg Tab) 80 mg PO DAILY [facility] Stop: 02/08/25 17:59 Last Admin: 01/14/25 09:17 Dose: 80 mg Bisacodyl (Bisacodyl 5 Mg Tabec) 5 mg PO DAILY [facility] Stop: 02/09/25 08:59 Last Admin: 01/14/25 09:18 Dose: 5 mg Clopidogrel Bisulfate (Clopidogrel Bisulfate 75 Mg Tab) 75 mg PO QAM [facility] Stop: 02/11/25 14:14 Last Admin: 01/14/25 09:18 Dose: 75 mg Dextrose (Dextrose 50% 50 Ml Syringe) 25 - 50 ml IV UD PRN; Protocol PRN Reason: Hypoglycemia Protocol Stop: 02/12/25 15:15 Enoxaparin Sodium (Enoxaparin Inj 40 Mg/0.4 Ml Syr) 40 mg SQ QAM [facility] Stop: 02/12/25 08:59 Last Admin: 01/14/25 09:24 Dose: 40 mg Folic Acid (Folic Acid 400 Mcg Tab) 800 mcg PO DAILY [facility] Stop: 02/09/25 08:59 Last Admin: 01/14/25 09:18 Dose: 800 mcg Glucagon (Glucagon For Inj 1 Mg Vial) 1 mg SQ UD PRN; Protocol PRN Reason: Hypoglycemia Protocol Stop: 02/12/25 15:15 Glucose (Glucose 40% Gel 15 Gm Tube) 15 - 30 gm PO UD PRN; Protocol PRN Reason: Hypoglycemia Protocol Stop: 02/12/25 15:15 Glucose (Glucose 10 Tab/Tube) 4 - 8 tab PO UD PRN; Protocol PRN Reason: Hypoglycemia Protocol Stop: 02/12/25 15:15 Sodium Chloride (Nss) 500 mls @ 75 mls/hr IV .Q6H40M [facility] Stop: 01/14/25 19:24 Insulin Aspart (Insulin Aspart Per Unit Charge) 0 units SC ACHS [facility] Stop: 02/12/25 16:29 Last Admin: 01/14/25 09:18 Dose: 2 units Miscellaneous (Carbohydrates For Hypoglycemia ) 15 - 30 gm PO UD PRN PRN Reason: Hypoglycemia Protocol Stop: 02/12/25 15:15 Miscellaneous Information (Pharmacist Discharge Med Rec Consult) 1 each N/A UD PRN PRN Reason: Consult Stop: 02/11/25 13:35 Ondansetron HCl (Ondansetron Inj 2 Mg/Ml 2 Ml Vial) 4 mg IV Q4H PRN PRN Reason: Nausea And Vomiting Stop: 02/08/25 17:53 Vitamin D (Cholecalciferol 25 Mcg (1000 Units) Tab) 25 mcg PO DAILY [facility] Stop: 02/09/25 08:59 Last Admin: 01/14/25 09:18 Dose: 25 mcg Vitamin E (Tocopheryl, Dl-Alpha 400 Units 180 Mg Cap) 180 mg PO DAILY [facility] Stop: 02/09/25 08:59 Last Admin: 01/14/25 09:18 Dose: 180 mg
[2025-01-14] MEDS: SODIUM CHLORIDE 0.9% 500 ML IV SCH (13:13)
--- NOTE | 2025-01-14 15:21 | Palliative Family Discussion ---
Date of Service January 14, 2025 Patient Directed Conference Time of Meetin:00 - 12:30 Participants: Anastasia Lugo AGACNP Patient participation: yes Patient Support System: spouse Other Healthcare Provider Participation: None Meeting Location: bedside Advanced Directive available: Yes If yes, descriptors: AD paperwork on file which was properly executed by patient 2002 designates patient's spouse Eun Negrete as primary HCPOA with no secondary HCPOA for all medical decisions in the event he lacks decisional capacity. The patient's surrogate medical decision maker participated: spouse Legally authorized health care proxy: Eun Negrete Other surrogate: none A family meeting was held for JC NEGRETE. This meeting was necessary for determining the appropriate course of treatment. Topics of Discussion Topics of Discussion: 1. goals of care 2. AD/LW 3. code status Other Content of Meetin. Opportunity given for participants to speak and ask questions. 2. Participants were assured of attention to patient comfort. 3. Reassurance provided. 4. Support was provided for informed, good-raj decisions. 5. Emotions expressed by family were acknowledged and addressed. 6. Follow-up Outpatient: n/a 7. Plan of Care: DNR/DNI, continue all other life prolonging therapies Met with pt's spouse Eun Negrete "Ana Maria" at bedside. She was able to locate pt's Living Will and brought original document to hospital. I made a copy and placed in chart. It was properly executed and notarized on [ ] indicating Ana Maria as HCPOA with no back up MDM proxy. Ana Maria shared relief that the pt had thought to complete this document when he was able and that he listed her as his HCPOA. She shared that she did reach out to both his daughters through email last night, informing them of his current medical condition and encouraging visitation. She shared that she has not gotten a response from either but would continue to try. Discussed that given the wishes expressed in his living will, we are not bound to contact his children for decisions. She shared that she would like them to have the information to make their choice of visiting or not. We discussed that wishes expressed in this document are not completely consistent with current orders in regards to code status. Ana Maria shared that the pt has been verbally clear with her that he would not want to be kept alive on machines and if he were not expected to recover to his previous level of functional independence he would not want resuscitation. Discussed code status and helped Ana Maria understand that CPR is only done after a person has and involves uncomfortable and invasive procedures that, if successful. have high risk of multiple complications including but not limited to rib fractures, pneumo/hemothorax, hypoperfusion end organ damage, ventilator dependence, anoxic brain injury, and intermodal customer service/permanent cognitive and functional deficits. CPR survival: Only about 10% of patients who have [id number] sudden cardiac arrest survive to hospital discharge, with many survivors having neurologic impairment. This rate is even lower among patients with serious coexisting conditions, ie chance of survival to hospital discharge for in- hospital CPR in older people is low to moderate (15%) and decreases with age, comorbidities, performance status and frailty: for pts > 70 yo, more than half of the patients who initially survived resuscitation in the hospital before hospital discharge. The pooled survival to discharge after in-hospital CPR was 18% for patients between 70 and 79 years old, 15% for patients between 80 and 89 years old and 11% for patients of 90 years and older. (Jaylen FREGOSO, Ab LJ, Chas F, et al. Trends in short- and long-term survival among [id number] cardiac arrest patients alive at hospital arrival. Circulation 2014;130:1883- 1890. AND Michael C, Lissa T, Kristin R, et al. Performance of clinical risk scores to predict mortality and neurological outcome in cardiac arrest patients. Resuscitation 2019;136:21-29.) Ana Maria requested that orders be changed to DNR/DNI to better reflect pt's spoken and written (in living will) wishes. Ana Maria shared that she was pleasantly surprised to see pt more alert today and she is hopeful that he will "continue to get better, I think he will improve enough to feed himself". Ana Maria shared that she has been discussing placement with CM and is hopeful that he will benefit from PT/OT at SNF enough to return home. We will sign off on this patient as goals of care are clearly established for DNR/DNI with continuation of all other life prolonging therapies Thank you for including Palliative Care in the management of this patient. Please call with any questions or concerns regarding this con sultation. Time Involved in Meeting: I spent 50 minutes overall addressing this case: 10 in medical data review/discussion with referring provider(s) and/or preparation for the visit 30 in direct interaction with the patient and /HCPOA 30 Advance Care Planning/Goals of Care discussions as detailed above in note (must be >16min) 5 in subsequent review and synthesis of assessment and plan 5 in communicating with other providers regarding the patient's case: DANIS, CM, attdg
--- NOTE | 2025-01-15 14:54 | Hospitalist Progress Note ---
Date of Service January 15, 2025 Assessment & Plan (1) Acute CVA (cerebrovascular accident): (2) Frequent falls: (3) Scalp laceration: (4) Vascular dementia: (5) DM2 (diabetes mellitus, type 2): (6) HTN (hypertension): Plan 79 year old male with PMH significant for DMII, HTN, HLD, left carotid artery stenosis, MDD, vascular dementia with behavioral disturbance, and previous ischemic left MCA stroke who presented to the ED on 01/09 for multiple falls at home. He was found to have an acute CVA due to multiple infarcts in the right cerebral hemisphere Recurrent falls secondary to acute CVA, multiple infarcts right cerebral hemisphere History of left MCA stroke Vascular dementia Infectious workup negative, B12/D3/folate normal, B1 level pending Telemetry revealing NSR with PVCs at rates of 60-80. Echo completed and unchanged from previous in July 2022. Zio patch recommended to rule out underlying Afib Patient was started on olanzapine this admission for aggressive behavior seen at home but is now discontinued due to drowsiness Improved drowsiness today Neurology consulted: Continue Plavix 70mg daily x3 weeks then stop and continue baby aspirin monotherapy Continue baby aspirin and atorvastatin Recommend ophthalmology follow up in 2-3 months for visual field acuity PT/OT recommending inpatient rehab/SNF. Case management involved. Scalp laceration 4 kasia over the left parietal region and another small cut more posteriorly on the left side with 1 staple Staple removal today Wound care with dry dressing if needed DMII A1C 7.3 Sliding scale insulin Patient was previously on metformin but stopped taking a year ago per HTN BP controlled. Not on BP medication DVT Prophylaxis: subQ lovenox Code Status: DNR/DNI Disposition: Medically cleared for discharge. Awaiting rehab/SNF placement. Patient seen in collaboration with Dr Andre. Please see addendum. I spent a total of 40 minutes coordinating, documenting and providing care for this patient excluding time spent in the performance of separately billed services or time spent by another provider/QHP. Admission and Anticipated Discharge Date Admission Date: January 09, 2025 Supervising Physician Co-Signing Physician Notes Patient seen and examined at bedside. Discussed case with as well, awaiting rehab placement. On exam, arousable, at baseline mentation. Awaiting rehab placement. I have seen and discussed the case with the collaborating advanced practitioner. I agree with the above H&P. I have reviewed and confirmed the patients medical history, the findings on physical examination, and the patients diagnosis and treatment plan with Martina SHARPE and agree with the information documented. I spent a total of 20 minutes coordinating, documenting, and providing care for this patient excluding time spent in the performance of separately billed services. All of the aforementioned completed outside of collaborating with the assigned advanced practitioner for a full treatment plan. I have reviewed the advanced practitioner's documentation, and I agree with, and take responsibility for the plan of care Subjective Patient seen sitting up in bed but in and out of sleep Patient knows his name but is otherwise disoriented and confused Unable to have coherent conversation to review systems Unable to feed himself breakfast but eating if fed to him Review of Systems Review of Systems: Unobtainable due to cognitive status Physical Exam Physical Exam: VITALS: Reviewed and VSS. GEN: Well-developed, male, NAD. PSYCH: Oriented to person. Speaks clearly but disorganized thoughts. HEENT: Left forehead with laceration and [address] Sclera white and conjunctiva pink. Nares without rhinorrhea. Nasal and oral mucosa pink. NECK: Supple, with no masses. CV: RRR, +murmur LUNGS: CTAB, no w/r/c. ABD: Soft, NT/ND, NBS, no masses or organomegaly. SKIN: Warm, well perfused. No skin rashes or abnormal lesions. MSK: No deformities, Normal gait. EXT: No clubbing, cyanosis, or edema. NEURO: Unable to lean forward in bed. Max assist. Results & Data Results & Data Vital Signs (Past 12 Hours) Vital Signs Temp Pulse Pulse Resp BP Pulse Ox O2 Del Method 01/15/25 13:57 69 01/15/25 11:16 36.6 C 68 16 122/79 96 Room Air 01/15/25 07:15 36.5 C 63 16 150/68 H 96 Room Air 01/15/25 05:55 60 01/15/25 03:16 36.4 C L 65 16 134/84 93 Room Air Medications Administered Current Inpatient Medications Acetaminophen (Acetaminophen 325 Mg Tab) 650 mg PO Q4H PRN PRN Reason: Moderate Pain (Scale 4, 5, 6) Stop: 02/08/25 17:53 Aspirin (Aspirin 81 Mg Ectab) 81 mg PO QAM [facility] Stop: 02/12/25 08:59 Last Admin: 01/15/25 09:16 Dose: 81 mg Atorvastatin Calcium (Atorvastatin 40 Mg Tab) 80 mg PO DAILY [facility] Stop: 02/08/25 17:59 Last Admin: 01/15/25 09:17 Dose: 80 mg Bisacodyl (Bisacodyl 5 Mg Tabec) 5 mg PO DAILY [facility] Stop: 02/09/25 08:59 Last Admin: 01/15/25 09:19 Dose: 5 mg Clopidogrel Bisulfate (Clopidogrel Bisulfate 75 Mg Tab) 75 mg PO QAM [facility] Stop: 02/11/25 14:14 Last Admin: 01/15/25 09:17 Dose: 75 mg Dextrose (Dextrose 50% 50 Ml Syringe) 25 - 50 ml IV UD PRN; Protocol PRN Reason: Hypoglycemia Protocol Stop: 02/12/25 15:15 Enoxaparin Sodium (Enoxaparin Inj 40 Mg/0.4 Ml Syr) 40 mg SQ [facility] Stop: 02/12/25 08:59 Last Admin: 01/15/25 09:17 Dose: 40 mg Folic Acid (Folic Acid 400 Mcg Tab) 800 mcg PO DAILY [facility] Stop: 02/09/25 08:59 Last Admin: 01/15/25 09:17 Dose: 800 mcg Glucagon (Glucagon For Inj 1 Mg Vial) 1 mg SQ UD PRN; Protocol PRN Reason: Hypoglycemia Protocol Stop: 02/12/25 15:15 Glucose (Glucose 40% Gel 15 Gm Tube) 15 - 30 gm PO UD PRN; Protocol PRN Reason: Hypoglycemia Protocol Stop: 02/12/25 15:15 Glucose (Glucose 10 Tab/Tube) 4 - 8 tab PO UD PRN; Protocol PRN Reason: Hypoglycemia Protocol Stop: 02/12/25 15:15 Insulin Aspart (Insulin Aspart Per Unit Charge) 0 units SC ACHS [facility] Stop: 02/12/25 16:29 Last Admin: 01/15/25 13:00 Dose: 4 units Miscellaneous (Carbohydrates For Hypoglycemia ) 15 - 30 gm PO UD PRN PRN Reason: Hypoglycemia Protocol Stop: 02/12/25 15:15 Miscellaneous Information (Pharmacist Discharge Med Rec Consult) 1 each N/A UD PRN PRN Reason: Consult Stop: 02/11/25 13:35 Ondansetron HCl (Ondansetron Inj 2 Mg/Ml 2 Ml Vial) 4 mg IV Q4H PRN PRN Reason: Nausea And Vomiting Stop: 02/08/25 17:53 Vitamin D (Cholecalciferol 25 Mcg (1000 Units) Tab) 25 mcg PO DAILY [facility] Stop: 02/09/25 08:59 Last Admin: 01/15/25 09:17 Dose: 25 mcg Vitamin E (Tocopheryl, Dl-Alpha 400 Units 180 Mg Cap) 180 mg PO DAILY [facility] Stop: 02/09/25 08:59 Last Admin: 01/15/25 09:17 Dose: 180 mg
[2025-01-16] MEDS ORDERED: PHA DELIRIUM CONSULT PRN (09:56)
[2025-01-16] MEDS ORDERED: MICONAZOLE NITRATE POWDER 85 GM EXT PRN (10:09)
--- NOTE | 2025-01-16 13:41 | Hospitalist Progress Note ---
Date of Service January 16, 2025 Assessment & Plan (1) Acute CVA (cerebrovascular accident): (2) Frequent falls: (3) Scalp laceration: (4) Vascular dementia: (5) DM2 (diabetes mellitus, type 2): (6) HTN (hypertension): Plan 79 year old male with PMH significant for DMII, HTN, HLD, left carotid artery stenosis, MDD, vascular dementia with behavioral disturbance, and previous ischemic left MCA stroke who presented to the ED on 01/09 for multiple falls at home. He was found to have an acute CVA due to multiple infarcts in the right cerebral hemisphere Recurrent falls secondary to acute CVA, multiple infarcts right cerebral hemisphere History of left MCA stroke Vascular dementia Infectious workup negative, B12/D3/folate normal, B1 level pending Telemetry revealing NSR with PVCs at rates of 60-80. Echo completed and unchanged from previous in July 2022. Zio patch recommended to rule out underlying Afib Patient was started on olanzapine this admission for aggressive behavior seen at home but is now discontinued due to drowsiness Improved drowsiness today Neurology consulted: Continue Plavix 70mg daily x3 weeks then stop and continue baby aspirin monotherapy Continue baby aspirin and atorvastatin Recommend ophthalmology follow up in 2-3 months for visual field acuity PT/OT recommending inpatient rehab/SNF. Case management involved. Scalp laceration [place] removed yesterday Wound care with dry dressing if needed DMII A1C 7.3 Sliding scale insulin Patient was previously on metformin but stopped taking a year ago per HTN BP controlled. Not on BP medication DVT Prophylaxis: subQ lovenox Code Status: DNR/DNI Disposition: Medically cleared for discharge. Awaiting rehab/SNF placement. Patient seen in collaboration with Dr Andre. Please see addendum. I spent a total of 40 minutes coordinating, documenting and providing care for this patient excluding time spent in the performance of separately billed services or time spent by another provider/QHP. Admission and Anticipated Discharge Date Admission Date: January 09, 2025 Supervising Physician Co-Signing Physician Notes Patient seen and examined at bedside. Patient comfortable at bedside at this time. Eating breakfast. Continue pursuing rehab placement. I have seen and discussed the case with the collaborating advanced practitioner. I agree with the above H&P. I have reviewed and confirmed the patients medical history, the findings on physical examination, and the patients diagnosis and treatment plan with Martina SHARPE and agree with the information documented. I spent a total of 20 minutes coordinating, documenting, and providing care for this patient excluding time spent in the performance of separately billed services. All of the aforementioned completed outside of collaborating with the assigned advanced practitioner for a full treatment plan. I have reviewed the advanced practitioner's documentation, and I agree with, and take responsibility for the plan of care Subjective Patient seen sitting up in bed more awake today Patient knows his name but is otherwise disoriented and confused Unable to have coherent conversation to review systems Was feeding himself breakfast today Review of Systems Review of Systems: Unobtainable due to cognitive status Physical Exam Physical Exam: VITALS: Reviewed and VSS. GEN: Well-developed, male, NAD. PSYCH: Oriented to person. Speaks clearly but disorganized thoughts. HEENT: Left forehead with laceration. Sclera white and conjunctiva pink. Nares without rhinorrhea. Nasal and oral mucosa pink. NECK: Supple, with no masses. CV: RRR, +murmur LUNGS: CTAB, no w/r/c. ABD: Soft, NT/ND, NBS, no masses or organomegaly. SKIN: Warm, well perfused. No skin rashes or abnormal lesions. MSK: No deformities, Normal gait. EXT: No clubbing, cyanosis, or edema. NEURO: Unable to lean forward in bed. Max assist. Results & Data Results & Data Vital Signs (Past 12 Hours) Vital Signs Temp Pulse Pulse Resp BP BP Pulse Ox 01/16/25 12:21 36.7 C 80 20 113/79 95 01/16/25 08:00 01/16/25 07:54 36.6 C 75 18 119/79 95 01/16/25 07:00 104 H 01/16/25 06:44 36.8 C 81 16 154/98 H 93 O2 Del Method 01/16/25 12:21 Room Air 01/16/25 08:00 Room Air 01/16/25 07:54 Room Air 01/16/25 07:00 01/16/25 06:44 Room Air Medications Administered Current Inpatient Medications Acetaminophen (Acetaminophen 325 Mg Tab) 650 mg PO Q4H PRN PRN Reason: Moderate Pain (Scale 4, 5, 6) Stop: 02/08/25 17:53 Aspirin (Aspirin 81 Mg Ectab) [facility] [place] Stop: 02/12/25 08:59 Last Admin: 01/16/25 08:59 Dose: 81 mg Atorvastatin Calcium (Atorvastatin 40 Mg Tab) 80 mg PO DAILY [facility] Stop: 02/08/25 17:59 Last Admin: 01/16/25 09:00 Dose: 80 mg Clopidogrel Bisulfate (Clopidogrel Bisulfate 75 Mg Tab) 75 mg PO QAM [facility] Stop: 02/11/25 14:14 Last Admin: 01/16/25 08:59 Dose: 75 mg Dextrose (Dextrose 50% 50 Ml Syringe) 25 - 50 ml IV UD PRN; Protocol PRN Reason: Hypoglycemia Protocol Stop: 02/12/25 15:15 Enoxaparin Sodium (Enoxaparin Inj 40 Mg/0.4 Ml Syr) 40 [facility] [place] Stop: 02/12/25 08:59 Last Admin: 01/16/25 09:00 Dose: 40 mg Folic Acid (Folic Acid 400 Mcg Tab) 800 mcg PO DAILY [facility] Stop: 02/09/25 08:59 Last Admin: 01/16/25 08:59 Dose: 800 mcg Glucagon (Glucagon For Inj 1 Mg Vial) 1 mg SQ UD PRN; Protocol PRN Reason: Hypoglycemia Protocol Stop: 02/12/25 15:15 Glucose (Glucose 40% Gel 15 Gm Tube) 15 - 30 gm PO UD PRN; Protocol PRN Reason: Hypoglycemia Protocol Stop: 02/12/25 15:15 Glucose (Glucose 10 Tab/Tube) 4 - 8 tab PO UD PRN; Protocol PRN Reason: Hypoglycemia Protocol Stop: 02/12/25 15:15 Insulin Aspart (Insulin Aspart Per Unit Charge) 0 units SC ACHS [facility] Stop: 02/12/25 16:29 Last Admin: 01/16/25 13:19 Dose: 5 units Miconazole Nitrate (Miconazole Nitrate Powder 85 Gm) 1 appln EXT PRN PRN PRN Reason: Affected Skin Folds Stop: 02/15/25 10:08 Miscellaneous (Carbohydrates For Hypoglycemia ) 15 - 30 gm PO UD PRN PRN Reason: Hypoglycemia Protocol Stop: 02/12/25 15:15 Miscellaneous (Pha Delirium Consult) 1 ea N/A PRN PRN PRN Reason: Consult Stop: 02/15/25 09:55 Miscellaneous Information (Pharmacist Discharge Med Rec Consult) 1 each N/A UD PRN PRN Reason: Consult Stop: 02/11/25 13:35 Ondansetron HCl (Ondansetron Inj 2 Mg/Ml 2 Ml Vial) 4 mg IV Q4H PRN PRN Reason: Nausea And Vomiting Stop: 02/08/25 17:53 Vitamin D (Cholecalciferol 25 Mcg (1000 Units) Tab) 25 mcg PO DAILY [facility] Stop: 02/09/25 08:59 Last Admin: 01/16/25 08:59 Dose: 25 mcg Vitamin E (Tocopheryl, Dl-Alpha 400 Units 180 Mg Cap) 180 mg PO DAILY [facility] Stop: 02/09/25 08:59 Last Admin: 01/16/25 08:59 Dose: 180 mg
[2025-01-17] MEDS: MAGNESIUM OXIDE 400 MG TAB PO SCH (09:27)
--- NOTE | 2025-01-17 13:00 | Hospitalist Progress Note ---
Date of Service January 17, 2025 Assessment & Plan (1) Acute CVA (cerebrovascular accident): (2) Frequent falls: (3) Scalp laceration: (4) Vascular dementia: (5) DM2 (diabetes mellitus, type 2): (6) HTN (hypertension): Plan 79 year old male with PMH significant for DMII, HTN, HLD, left carotid artery stenosis, MDD, vascular dementia with behavioral disturbance, and previous ischemic left MCA stroke who presented to the ED on 01/09 for multiple falls at home. He was found to have an acute CVA due to multiple infarcts in the right cerebral hemisphere Recurrent falls secondary to acute CVA, multiple infarcts right cerebral hemisphere History of left MCA stroke Vascular dementia Infectious workup negative, B12/D3/folate normal, B1 level pending Telemetry revealing NSR with PVCs at rates of 60-80. Echo completed and unchanged from previous in July 2022. Zio patch recommended to rule out underlying Afib Patient was started on olanzapine this admission for aggressive behavior seen at home but is now discontinued due to drowsiness In chair comfortable today Neurology consulted: Continue Plavix 70mg daily x3 weeks then stop and continue baby aspirin monotherapy Continue baby aspirin and atorvastatin Recommend ophthalmology follow up in 2-3 months for visual field acuity PT/OT recommending inpatient rehab/SNF. Case management involved. Scalp laceration Wound care with dry dressing if needed DMII A1C 7.3 Sliding scale insulin Patient was previously on metformin but stopped taking a year ago per HTN BP controlled. Not on BP medication DVT Prophylaxis: subQ lovenox Code Status: DNR/DNI Disposition: Medically cleared for discharge. Awaiting rehab/SNF placement. I spent a total of 40 minutes in direct patient care, including [id number] time with the patient and/or family, reviewing medical records, ordering and reviewing diagnostic tests, and coordinating care with other healthcare providers. This time includes: history taking, physical examination, medical decision making, counseling, ECG interpretation, imaging interpretation, lab interpretation, orders, and education, excluding time spent in the performance of separately billed services. Admission and Anticipated Discharge Date Admission Date: January 09, 2025 Subjective Patient seen and examined at bedside. Patient sitting up in chair, comfortable, denies concerns at this time. Review of Systems Review of Systems: CONSTITUTIONAL: Patient denies fevers, chills, sweats and weight changes. EYES: Patient denies any visual symptoms. EARS, NOSE, AND THROAT: No difficulties with hearing. No symptoms of rhinitis or sore throat. CARDIOVASCULAR: Patient denies chest pains, palpitations, orthopnea and paro xysmal nocturnal dyspnea. RESPIRATORY: No dyspnea on exertion, no wheezing or cough. GI: No nausea, vomiting, diarrhea, constipation, abdominal pain, hematochezia or melena. : No urinary hesitancy or dribbling. No nocturia or urinary frequency. No abnormal urethral discharge. MUSCULOSKELETAL: No myalgias or arthralgias. NEUROLOGIC: No chronic headaches, no seizures. Patient denies numbness, tingling or weakness. PSYCHIATRIC: Patient denies problems with mood disturbance. No problems with anxiety. ENDOCRINE: No excessive urination or excessive thirst. DERMATOLOGIC: Patient denies any rashes or skin changes. Physical Exam Physical Exam: Gen: A&O 1 NAD HEENT: NCAT, EOMI, not icteric. External ears normal. No rhinorrhea. Moist mucous membranes. Neck: Supple, full range of motion, no observable masses, No meningeal sign. Lungs: No Respiratory distress. CV: RRR, no edema. Abdomen: Soft, nondistended, No rebound tenderness. MSK: No joint swelling, no redness. Skin: No rashes, petechiae, lesions. Normal color per patient. Neuro: Normal Gait, Grossly intact. Psych: Appropriate for situation. Results & Data Results & Data Vital Signs (Past 12 Hours) Vital Signs Temp Pulse Pulse Pulse Resp BP BP 01/17/25 11:32 36.5 C 83 20 127/85 01/17/25 07:44 36.7 C 74 20 140/86 01/17/25 07:00 66 01/17/25 02:43 36.7 C 71 16 155/86 H Pulse Ox O2 Del Method 01/17/25 11:32 95 Room Air 01/17/25 07:44 93 Room Air 01/17/25 07:00 01/17/25 02:43 96 Room Air Medications Administered Aspirin (Aspirin 81 Mg Ectab) 81 mg PO [facility] Stop: 02/12/25 08:59 Last Admin: 01/17/25 09:28 Dose: 81 mg Documented By: Admin: 01/16/25 08:59 Dose: 81 mg Documented By: Admin: 01/15/25 09:16 Dose: 81 mg Documented By: Admin: 01/14/25 09:17 Dose: 81 mg Documented By: Admin: 01/13/25 10:32 Dose: 81 mg Documented By: ALBERTINA Atorvastatin Calcium (Atorvastatin 40 Mg Tab) 80 mg PO DAILY [facility] Stop: 02/08/25 17:59 Last Admin: 01/17/25 09:28 Dose: 80 mg Documented By: Admin: 01/16/25 09:00 Dose: 80 mg Documented By: Admin: 01/15/25 09:17 Dose: 80 mg Documented By: Admin: 01/14/25 09:17 Dose: 80 mg Documented By: Admin: 01/13/25 08:46 Dose: 80 mg Documented By: Admin: 01/12/25 10:31 Dose: Not Given Documented By: Admin: 01/11/25 08:59 Dose: 80 mg Documented By: Admin: 01/10/25 08:49 Dose: 80 mg Documented By: Admin: 01/09/25 20:23 Dose: 80 mg Documented By: QGV Clopidogrel Bisulfate (Clopidogrel Bisulfate 75 Mg Tab) [facility] [place]: 02/11/25 14:14 Last Admin: 01/17/25 09:28 Dose: 75 mg Documented By: Admin: 01/16/25 08:59 Dose: 75 mg Documented By: Admin: 01/15/25 09:17 Dose: 75 mg Documented By: Admin: 01/14/25 09:18 Dose: 75 mg Documented By: Admin: 01/13/25 08:46 Dose: 75 mg Documented By: Admin: 01/12/25 14:53 Dose: 75 mg Documented By: INGE Enoxaparin Sodium (Enoxaparin Inj 40 Mg/0.4 Ml Syr) [facility] [place]: 02/12/25 08:59 Last Admin: 01/17/25 09:27 Dose: 40 mg Documented By: Admin: 01/16/25 09:00 Dose: 40 mg Documented By: Admin: 01/15/25 09:17 Dose: 40 mg Documented By: Admin: 01/14/25 09:24 Dose: 40 mg Documented By: Admin: 01/13/25 10:32 Dose: 40 mg Documented By: ALBERTINA Folic Acid (Folic Acid 400 Mcg Tab) 800 mcg PO DAILY [facility] Stop: 02/09/25 08:59 Last Admin: 01/17/25 09:28 Dose: 800 mcg Documented By: Admin: 01/16/25 08:59 Dose: 800 mcg Documented By: Admin: 01/15/25 09:17 Dose: 800 mcg Documented By: Admin: 01/14/25 09:18 Dose: 800 mcg Documented By: Admin: 01/13/25 08:46 Dose: 800 mcg Documented By: Admin: 01/12/25 10:33 Dose: Not Given Documented By: Admin: 01/11/25 08:59 Dose: 800 mcg Documented By: Admin: 01/10/25 08:50 Dose: 800 mcg Documented By: PRAMOD Insulin Aspart (Insulin Aspart Per Unit Charge) 0 units SC ACHS [facility] Stop: 02/12/25 16:29 Last Admin: 01/17/25 09:35 Dose: 2 units Documented By: MAMI Co-signed By: RAE Admin: 01/16/25 20:23 Dose: Not Given Documented By: Admin: 01/16/25 18:04 Dose: 2 units Documented By: KIRILL Co-signed By: RAE Admin: 01/16/25 13:19 Dose: 5 units Documented By: KIRILL Co-signed By: LETICIA Admin: 01/16/25 09:04 Dose: 3 units Documented By: KIRILL Co-signed By: LOU Admin: 01/15/25 20:21 Dose: Not Given Documented By: Admin: 01/15/25 18:01 Dose: 3 units Documented By: MARY Co-signed By: ALONSO Admin: 01/15/25 13:00 Dose: 4 units Documented By: MARY Co-signed By: ISRRAEL Admin: 01/15/25 09:51 Dose: 2 units Documented By: MARY Co-signed By: ALONSO Admin: 01/14/25 21:54 Dose: Not Given Documented By: Admin: 01/14/25 18:02 Dose: 3 units Documented By: ALVARO Co-signed By: ALONSO Admin: 01/14/25 12:59 Dose: Not Given Documented By: Admin: 01/14/25 09:18 Dose: 2 units Documented By: ALVARO Co-signed By: ELC Admin: 01/13/25 20:20 Dose: 1 units Documented By: PAMELA Co-signed By: CARTER Admin: 01/13/25 18:21 Dose: 3 units Documented By: ALBERTINA Co-signed By: FROY Magnesium Oxide (Magnesium Oxide 400 Mg Tab) 400 mg PO QAM [facility] Stop: 02/16/25 08:59 Last Admin: 01/17/25 09:27 Dose: 400 mg Documented By: MAMI Vitamin D (Cholecalciferol 25 Mcg (1000 Units) Tab) 25 mcg PO DAILY [facility] Stop: 02/09/25 08:59 Last Admin: 01/17/25 09:28 Dose: 25 mcg Documented By: Admin: 01/16/25 08:59 Dose: 25 mcg Documented By: Admin: 01/15/25 09:17 Dose: 25 mcg Documented By: Admin: 01/14/25 09:18 Dose: 25 mcg Documented By: Admin: 01/13/25 08:46 Dose: 25 mcg Documented By: Admin: 01/12/25 10:32 Dose: Not Given Documented By: Admin: 01/11/25 08:58 Dose: 25 mcg Documented By: Admin: 01/10/25 08:50 Dose: 25 mcg Documented By: PRAMOD Vitamin E (Tocopheryl, Dl-Alpha 400 Units 180 Mg Cap) 180 mg PO DAILY [facility] Stop: 02/09/25 08:59 Last Admin: 01/17/25 09:28 Dose: 180 mg Documented By: Admin: 01/16/25 08:59 Dose: 180 mg Documented By: Admin: 01/15/25 09:17 Dose: 180 mg Documented By: Admin: 01/14/25 09:18 Dose: 180 mg Documented By: Admin: 01/13/25 08:46 Dose: 180 mg Documented By: Admin: 01/12/25 10:32 Dose: Not Given Documented By: Admin: 01/11/25 08:59 Dose: 180 mg Documented By: Admin: 01/10/25 08:50 Dose: 180 mg Documented By: PRAMOD
--- NOTE | 2025-01-18 17:11 | Hospitalist Progress Note ---
Date of Service January 18, 2025 Assessment & Plan (1) Acute CVA (cerebrovascular accident): (2) Frequent falls: (3) Scalp laceration: (4) Vascular dementia: (5) DM2 (diabetes mellitus, type 2): (6) HTN (hypertension): Plan 79 year old male with PMH significant for DMII, HTN, HLD, left carotid artery stenosis, MDD, vascular dementia with behavioral disturbance, and previous ischemic left MCA stroke who presented to the ED on 01/09 for multiple falls at home. He was found to have an acute CVA due to multiple infarcts in the right cerebral hemisphere Recurrent falls secondary to acute CVA, multiple infarcts right cerebral hemisphere History of left MCA stroke Vascular dementia Infectious workup negative, B12/D3/folate normal, B1 level pending Telemetry revealing NSR with PVCs at rates of 60-80. Echo completed and unchanged from previous in July 2022. Zio patch recommended to rule out underlying Afib Patient was started on olanzapine this admission for aggressive behavior seen at home but is now discontinued due to drowsiness In chair comfortable today Ok for no IV at this time Neurology consulted: Continue Plavix 70mg daily x3 weeks then stop and continue baby aspirin monotherapy Continue baby aspirin and atorvastatin Recommend ophthalmology follow up in 2-3 months for visual field acuity PT/OT recommending inpatient rehab/SNF. Case management involved. Scalp laceration Wound care with dry dressing if needed DMII A1C 7.3 Sliding scale insulin Patient was previously on metformin but stopped taking a year ago per HTN BP controlled. Not on BP medication DVT Prophylaxis: subQ lovenox Code Status: DNR/DNI Disposition: Medically cleared for discharge. Awaiting rehab/SNF placement. I spent a total of 40 minutes in direct patient care, including [id number] time with the patient and/or family, reviewing medical records, ordering and reviewing diagnostic tests, and coordinating care with other healthcare providers. This time includes: history taking, physical examination, medical decision making, counseling, ECG interpretation, imaging interpretation, lab interpretation, orders, and education, excluding time spent in the performance of separately billed services. Admission and Anticipated Discharge Date Admission Date: January 09, 2025 Subjective Patient seen and examined at bedside. Patient resting comfortably in the chair. Review of Systems Review of Systems: CONSTITUTIONAL: Patient denies fevers, chills, sweats and weight changes. EYES: Patient denies any visual symptoms. EARS, NOSE, AND THROAT: No difficulties with hearing. No symptoms of rhinitis or sore throat. CARDIOVASCULAR: Patient denies chest pains, palpitations, orthopnea and paroxy smal nocturnal dyspnea. RESPIRATORY: No dyspnea on exertion, no wheezing or cough. GI: No nausea, vomiting, diarrhea, constipation, abdominal pain, hematochezia or melena. : No urinary hesitancy or dribbling. No nocturia or urinary frequency. No abnormal urethral discharge. MUSCULOSKELETAL: No myalgias or arthralgias. NEUROLOGIC: No chronic headaches, no seizures. Patient denies numbness, tingling or weakness. PSYCHIATRIC: Patient denies problems with mood disturbance. No problems with anxiety. ENDOCRINE: No excessive urination or excessive thirst. DERMATOLOGIC: Patient denies any rashes or skin changes. Physical Exam Physical Exam: Gen: A&O 1 NAD HEENT: NCAT, EOMI, not icteric. External ears normal. No rhinorrhea. Moist mucous membranes. Neck: Supple, full range of motion, no observable masses, No meningeal sign. Lungs: No Respiratory distress. CV: RRR, no edema. Abdomen: Soft, nondistended, No rebound tenderness. MSK: No joint swelling, no redness. Skin: No rashes, petechiae, lesions. Normal color per patient. Neuro: Normal Gait, Grossly intact. Psych: Appropriate for situation. Results & Data Results & Data Vital Signs (Past 12 Hours) Vital Signs Temp Pulse Pulse Pulse Resp BP BP 01/18/25 16:09 36.5 C 76 16 110/70 01/18/25 14:44 80 01/18/25 11:27 36.2 C L 92 H 16 103/72 01/18/25 08:05 01/18/25 07:55 36.5 C 75 20 126/66 01/18/25 07:26 69 Pulse Ox O2 Del Method 01/18/25 16:09 76 L Room Air 01/18/25 14:44 01/18/25 11:27 95 Room Air 01/18/25 08:05 Room Air 01/18/25 07:55 92 Room Air 01/18/25 07:26
[2025-01-18 19:51] VITALS: RESP 18
--- NOTE | 2025-01-19 13:41 | Hospitalist Progress Note ---
Date of Service January 19, 2025 Assessment & Plan (1) Acute CVA (cerebrovascular accident): (2) Frequent falls: (3) Scalp laceration: (4) Vascular dementia: (5) DM2 (diabetes mellitus, type 2): (6) HTN (hypertension): Plan 79 year old male with PMH significant for DMII, HTN, HLD, left carotid artery stenosis, MDD, vascular dementia with behavioral disturbance, and previous ischemic left MCA stroke who presented to the ED on 01/09 for multiple falls at home. He was found to have an acute CVA due to multiple infarcts in the right cerebral hemisphere Recurrent falls secondary to acute CVA, multiple infarcts right cerebral hemisphere History of left MCA stroke Vascular dementia Infectious workup negative, B1/B12/D3/folate normal Telemetry revealing NSR with PVCs at rates of 60-80. Echo completed and unchanged from previous in July 2022. Zio patch recommended to rule out underlying Afib Patient was started on olanzapine this admission for aggressive behavior seen at home but is now discontinued due to drowsiness Neurology consulted: Continue Plavix 70mg daily x3 weeks then stop and continue baby aspirin monotherapy Continue baby aspirin and atorvastatin Recommend ophthalmology follow up in 2-3 months for visual field acuity PT/OT recommending inpatient rehab/SNF. Case management involved. Scalp laceration Polly removed 01/15 Wound care with dry dressing if needed DMII A1C 7.3 Sliding scale insulin Patient was previously on metformin but stopped taking a year ago per HTN BP controlled. Not on BP medication DVT Prophylaxis: subQ lovenox Code Status: DNR/DNI Disposition: Medically cleared for discharge. Awaiting rehab/SNF placement. Patient seen in collaboration with Dr Andre. Please see addendum. I spent a total of 40 minutes coordinating, documenting and providing care for this patient excluding time spent in the performance of separately billed services or time spent by another provider/QHP. Admission and Anticipated Discharge Date Admission Date: January 09, 2025 Supervising Physician Co-Signing Physician Notes Patient seen and examined at bedside. Patient comfortable this morning. Awaiting pre-authorization from insurance at this time. Medically stable for discharge. Subjective Patient seen sitting up in bed States he is doing well Denies chest pain, SOB, abdominal pain, N/V/D Nurse reports he fed himself breakfast this morning Review of Systems Review of Systems: All systems reviewed & are unremarkable except as noted in HPI & below Physical Exam Physical Exam: VITALS: Reviewed and VSS. GEN: Well-developed, male, NAD. PSYCH: Oriented to person and place. Speaks clearly but disorganized thoughts. HEENT: Head NC/AT. Sclera white and conjunctiva pink. Nares without rhinorrhea. Nasal and oral mucosa pink. NECK: Supple, with no masses. CV: RRR, +murmur LUNGS: CTAB, no w/r/c. ABD: Soft, NT/ND, NBS, no masses or organomegaly. SKIN: Warm, well perfused. No skin rashes or abnormal lesions. MSK: No deformities, Normal gait. EXT: No clubbing, cyanosis, or edema. NEURO: No focal deficits. Results & Data Results & Data Vital Signs (Past 12 Hours) Vital Signs Temp Pulse Pulse Resp BP Pulse Ox O2 Del Method 01/19/25 11:37 36.8 C 84 18 122/79 96 Room Air 01/19/25 07:42 36.6 C 73 18 124/79 93 Room Air 01/19/25 07:00 80 01/19/25 02:59 37.0 C 78 18 143/86 H 95 Room Air Medications Administered Current Inpatient Medications Acetaminophen (Acetaminophen 325 Mg Tab) 650 mg PO Q4H PRN PRN Reason: Moderate Pain (Scale 4, 5, 6) Stop: 02/08/25 17:53 Aspirin (Aspirin 81 Mg Ectab) [facility] [place] Stop: 02/12/25 08:59 Last Admin: 01/19/25 09:06 Dose: 81 mg Atorvastatin Calcium (Atorvastatin 40 Mg Tab) 80 mg PO DAILY [facility] Stop: 02/08/25 17:59 Last Admin: 01/19/25 09:06 Dose: 80 mg Clopidogrel Bisulfate (Clopidogrel Bisulfate 75 Mg Tab) [facility] [place] Stop: 02/11/25 14:14 Last Admin: 01/19/25 09:07 Dose: 75 mg Dextrose (Dextrose 50% 50 Ml Syringe) 25 - 50 ml IV UD PRN; Protocol PRN Reason: Hypoglycemia Protocol Stop: 02/12/25 15:15 Enoxaparin Sodium (Enoxaparin Inj 40 Mg/0.4 Ml Syr) 40 mg SQ [facility] Stop: 02/12/25 08:59 Last Admin: 01/19/25 09:06 Dose: 40 mg Folic Acid (Folic Acid 400 Mcg Tab) 800 mcg PO DAILY [facility] Stop: 02/09/25 08:59 Last Admin: 01/19/25 09:07 Dose: 800 mcg Glucagon (Glucagon For Inj 1 Mg Vial) 1 mg SQ UD PRN; Protocol PRN Reason: Hypoglycemia Protocol Stop: 02/12/25 15:15 Glucose (Glucose 40% Gel 15 Gm Tube) 15 - 30 gm PO UD PRN; Protocol PRN Reason: Hypoglycemia Protocol Stop: 02/12/25 15:15 Glucose (Glucose 10 Tab/Tube) 4 - 8 tab PO UD PRN; Protocol PRN Reason: Hypoglycemia Protocol Stop: 02/12/25 15:15 Insulin Aspart (Insulin Aspart Per Unit Charge) 0 units SC ACHS [facility] Stop: 02/12/25 16:29 Last Admin: 01/19/25 13:40 Dose: 3 units Magnesium Oxide (Magnesium Oxide 400 Mg Tab) 400 mg PO QAM [facility] Stop: 02/16/25 08:59 Last Admin: 01/19/25 09:06 Dose: 400 mg Miconazole Nitrate (Miconazole Nitrate Powder 85 Gm) 1 appln EXT PRN PRN PRN Reason: Affected Skin Folds Stop: 02/15/25 10:08 Miscellaneous (Carbohydrates For Hypoglycemia ) 15 - 30 gm PO UD PRN PRN Reason: Hypoglycemia Protocol Stop: 02/12/25 15:15 Miscellaneous Information (Pharmacist Discharge Med Rec Consult) 1 each N/A UD PRN PRN Reason: Consult Stop: 02/11/25 13:35 Ondansetron HCl (Ondansetron Inj 2 Mg/Ml 2 Ml Vial) 4 mg IV Q4H PRN PRN Reason: Nausea And Vomiting Stop: 02/08/25 17:53 Vitamin D (Cholecalciferol 25 Mcg (1000 Units) Tab) 25 mcg PO DAILY [facility] Stop: 02/09/25 08:59 Last Admin: 01/19/25 09:06 Dose: 25 mcg Vitamin E (Tocopheryl, Dl-Alpha 400 Units 180 Mg Cap) 180 mg PO DAILY [facility] Stop: 02/09/25 08:59 Last Admin: 01/19/25 09:06 Dose: 180 mg
[2025-01-19] MEDS: ACETAMINOPHEN 325 MG TAB PO PRN (20:36)
[2025-01-19] MEDS ORDERED: PHA DELIRIUM CONSULT PRN ×2 (23:41→23:51)
--- NOTE | 2025-01-20 10:23 | Hospitalist Progress Note ---
Date of Service January 20, 2025 Assessment & Plan (1) Acute CVA (cerebrovascular accident): (2) Frequent falls: (3) Scalp laceration: (4) Vascular dementia: (5) DM2 (diabetes mellitus, type 2): (6) HTN (hypertension): Plan 79 year old male with PMH significant for DMII, HTN, HLD, left carotid artery stenosis, MDD, vascular dementia with behavioral disturbance, and previous ischemic left MCA stroke who presented to the ED on 01/09 for multiple falls at home. He was found to have an acute CVA due to multiple infarcts in the right cerebral hemisphere Recurrent falls secondary to acute CVA, multiple infarcts right cerebral hemisphere History of left MCA stroke Vascular dementia Infectious workup negative, B1/B12/D3/folate normal Telemetry revealing NSR with PVCs at rates of 60-80. Echo completed and unchanged from previous in July 2022. Neurology consulted: Continue Plavix 70mg daily x3 weeks then stop and continue baby aspirin monotherapy Continue baby aspirin and atorvastatin Recommend ophthalmology follow up in 2-3 months for visual field acuity PT/OT recommending inpatient rehab/SNF. Case management involved. Scalp laceration Polly removed 01/15 Wound care with dry dressing if needed DMII A1C 7.3 Sliding scale insulin Patient was previously on metformin but stopped taking a year ago per HTN BP controlled. Not on BP medication DVT Prophylaxis: subQ lovenox Code Status: DNR/DNI Disposition: Medically cleared for discharge. Awaiting rehab/SNF placement. Patient seen in collaboration with Dr Andre. Please see addendum. I spent a total of 40 minutes coordinating, documenting and providing care for this patient excluding time spent in the performance of separately billed services or time spent by another provider/QHP. Admission and Anticipated Discharge Date Admission Date: January 09, 2025 Subjective Patient seen sitting up in bed Drowsy this morning and not answering questions Not feeding self breakfast this morning but will eat if fed Review of Systems Review of Systems: Unobtainable due to mental health condition Physical Exam Physical Exam: VITALS: Reviewed and VSS. GEN: Well-developed, male, NAD. PSYCH: Oriented to person. Speaks clearly but disorganized thoughts. HEENT: Head NC/AT. Sclera white and conjunctiva pink. Nares without rhinorrhea. Nasal and oral mucosa pink. NECK: Supple, with no masses. CV: RRR, +murmur LUNGS: CTAB, no w/r/c. ABD: Soft, NT/ND, NBS, no masses or organomegaly. SKIN: Warm, well perfused. No skin rashes or abnormal lesions. MSK: No deformities, Normal gait. EXT: No clubbing, cyanosis, or edema. NEURO: No focal deficits. Results & Data Results & Data Vital Signs (Past 12 Hours) Vital Signs Temp Pulse Pulse Resp BP BP Pulse Ox 01/20/25 07:21 36.5 C 65 18 161/83 H 95 01/20/25 07:16 60 01/20/25 03:06 36.2 C L 63 18 111/58 L 96 01/19/25 23:33 O2 Del Method 01/20/25 07:21 Room Air 01/20/25 07:16 01/20/25 03:06 Room Air 01/19/25 23:33 Room Air Medications Administered Current Inpatient Medications Acetaminophen (Acetaminophen 325 Mg Tab) 650 mg PO Q4H PRN PRN Reason: Moderate Pain (Scale 4, 5, 6) Stop: 02/08/25 17:53 Last Admin: 01/19/25 20:36 Dose: 650 mg Aspirin (Aspirin 81 Mg Ectab) 81 mg PO QAM [facility] Stop: 02/12/25 08:59 Last Admin: 01/20/25 08:48 Dose: 81 mg Atorvastatin Calcium (Atorvastatin 40 Mg Tab) 80 mg PO DAILY [facility] Stop: 02/08/25 17:59 Last Admin: 01/20/25 08:48 Dose: 80 mg Clopidogrel Bisulfate (Clopidogrel Bisulfate 75 Mg Tab) [facility] [place] Stop: 02/11/25 14:14 Last Admin: 01/20/25 08:48 Dose: 75 mg Dextrose (Dextrose 50% 50 Ml Syringe) 25 - 50 ml IV UD PRN; Protocol PRN Reason: Hypoglycemia Protocol Stop: 02/12/25 15:15 Enoxaparin Sodium (Enoxaparin Inj 40 Mg/0.4 Ml Syr) 40 mg SQ QAM [facility] Stop: 02/12/25 08:59 Last Admin: 01/20/25 08:48 Dose: 40 mg Folic Acid (Folic Acid 400 Mcg Tab) 800 mcg PO DAILY [facility] Stop: 02/09/25 08:59 Last Admin: 01/20/25 08:48 Dose: 800 mcg Glucagon (Glucagon For Inj 1 Mg Vial) 1 mg SQ UD PRN; Protocol PRN Reason: Hypoglycemia Protocol Stop: 02/12/25 15:15 Glucose (Glucose 40% Gel 15 Gm Tube) 15 - 30 gm PO UD PRN; Protocol PRN Reason: Hypoglycemia Protocol Stop: 02/12/25 15:15 Glucose (Glucose 10 Tab/Tube) 4 - 8 tab PO UD PRN; Protocol PRN Reason: Hypoglycemia Protocol Stop: 02/12/25 15:15 Insulin Aspart (Insulin Aspart Per Unit Charge) 0 units SC ACHS [facility] Stop: 02/12/25 16:29 Last Admin: 01/20/25 08:49 Dose: Not Given Magnesium Oxide (Magnesium Oxide 400 Mg Tab) 400 mg PO QAM [facility] Stop: 02/16/25 08:59 Last Admin: 01/20/25 08:48 Dose: 400 mg Miconazole Nitrate (Miconazole Nitrate Powder 85 Gm) 1 appln EXT PRN PRN PRN Reason: Affected Skin Folds Stop: 02/15/25 10:08 Miscellaneous (Carbohydrates For Hypoglycemia ) 15 - 30 gm PO UD PRN PRN Reason: Hypoglycemia Protocol Stop: 02/12/25 15:15 Miscellaneous Information (Pharmacist Discharge Med Rec Consult) 1 each N/A UD PRN PRN Reason: Consult Stop: 02/11/25 13:35 Ondansetron HCl (Ondansetron Inj 2 Mg/Ml 2 Ml Vial) 4 mg IV Q4H PRN PRN Reason: Nausea And Vomiting Stop: 02/08/25 17:53 Vitamin D (Cholecalciferol 25 Mcg (1000 Units) Tab) 25 mcg PO DAILY [facility] Stop: 02/09/25 08:59 Last Admin: 01/20/25 08:48 Dose: 25 mcg Vitamin E (Tocopheryl, Dl-Alpha 400 Units 180 Mg Cap) 180 mg PO DAILY [facility] Stop: 02/09/25 08:59 Last Admin: 01/20/25 08:48 Dose: 180 mg
[2025-01-20 10:59] VITALS: BP 131/86; TEMP 98.6; O2SAT 94
[2025-01-20] MEDS ORDERED: STROKE PATIENT DISCHARGE STA (13:05)
--- NOTE | 2025-01-20 13:12 | Discharge Summary ---
Discharge Summary Date of Service January 20, 2025 Principal Dx & Hospital Course #1 = Principal Diagnosis (1) Acute CVA (cerebrovascular accident): (2) Frequent falls: (3) Scalp laceration: (4) Vascular dementia: (5) DM2 (diabetes mellitus, type 2): (6) HTN (hypertension): Plan 79 year old male with PMH significant for DMII, HTN, HLD, left carotid artery stenosis, MDD, vascular dementia with behavioral disturbance, and previous ischemic left MCA stroke who presented to the ED on 01/09 for multiple falls at home. He was found to have an acute CVA due to multiple infarcts in the right cerebral hemisphere Recurrent falls secondary to acute CVA, multiple infarcts right cerebral hemisphere History of left MCA stroke Vascular dementia Infectious workup negative, B1/B12/D3/folate normal Telemetry revealed NSR with PVCs at rates of 60-80. No atrial fibrillation. Echo completed and unchanged from previous in July 2022. Neurology consulted: Continue Plavix 75mg daily x3 weeks then stop (last day 02/01/25) and continue baby aspirin monotherapy Continue baby aspirin and atorvastatin per home dosing Recommend ophthalmology follow up in 2-3 months for visual field acuity PT/OT recommended inpatient rehab/SNF. Scalp laceration Dubois removed 01/15 Wound care with dry dressing if needed DMII A1C 7.3 Patient was previously on metformin but stopped taking a year ago per Continue insulin per home dosing HTN BP controlled. Not on BP medication at home. Patient seen in collaboration with Dr Andre. Please see addendum. Notes For Next Care Provider 79 year old male who was admitted due to an acute CVA. Neurology recommended medication therapy as detailed above and ophthalmology follow up. Patient worked with PT and OT while in the hospital and both recommended rehab/SNF at time of discharge. Medication Changes From Visit Plavix 75mg daily x3 weeks then stop (last day 02/01/25) and then continue baby aspirin monotherapy Continue all other home medications as previously prescribed. Admission HPI Per Admitting Provider This is a 79 yo M with PMHx of DM II, HTN, HLD, carotid stenosis of the left, previous ischemic left MCA stroke, major depressive disorder, vascular dementia with behavioral disturbance, who presents to the hospital with complaints of frequent falls. provides the history as the patient is unable to do so due to dementia. She states that yesterday early afternoon the patient sustained a fall in their home resulting in a scalp laceration where she called ambulance and they took him to [facility]. There imaging was performed, no acute findings, and kasia were placed on he lacerations of the scalp. [facility] recommended that the patient be admitted at one of their higher care facilities and were suggesting transfer either to [place] or [place], however did not want to do that as the pt has received care here at [facility] and preferred this hospital. Their care team at [facility] stated that that would require a direct admission and said it was not possible last evening. Pt improved to the point where he was able to walk about the ER flores at [facility] and opted to take the patient home. Once back at home, at approximately 0200 he woke up to urinate, walked to the bathroom which is next to their bedroom, and sustained another fall. EMS was called again and she requested transfer here to [facility]. Once here overnight, underwent supportive care, improved, and was stable for discharge home early this morning. At home again around 9:30 AM he nearly had a third fall, and his called EMS again and requested he come back to [facility]. Hospitalist team has been consulted for admission for possible placement. She does not feel the patient is safe to be home due to multiple falls. Admission Exam Per Admitting Provider General: awake, alert, no apparent distress, white male Head: Normocephalic, atraumatic ENT: PERRL, EOMI, no pharyngeal exudate, mucous membranes moist Chest: Clear to auscultation, on room air, no adventitious breath sounds Cardiac: Regular rate and rhythm, no murmur, no JVD, normal peripheral pulses, good capillary refill Abdominal: NABS x 4 quadrants, soft, nondistended, nontender to palpation, no rebound or guarding Extremities: Normal inspection, no peripheral edema or erythema, calfs nontender to palpation Psych: Normal mood and affect Neuro: awake, not oriented to time or place, strength intact bilaterally and rated 5/5, no motor deficits, speech is clear, no peripheral sensory deficits Discharge Exam VITALS: Reviewed and VSS. GEN: Well-developed, male, NAD. PSYCH: Oriented to person. Speaks clearly but disorganized thoughts. HEENT: Head NC/AT. Sclera white and conjunctiva pink. Nares without rhinorrhea. Nasal and oral mucosa pink. NECK: Supple, with no masses. CV: RRR, no m/r/g. LUNGS: CTAB, no w/r/c. ABD: Soft, NT/ND, NBS, no masses or organomegaly. SKIN: Warm, well perfused. No skin rashes or abnormal lesions. MSK: No deformities. EXT: No clubbing, cyanosis, or edema. NEURO: No focal deficits. Updated Medication List Medication Instructions Recorded Confirmed Type insulin aspart U-100 100 unit/mL 0 sliding scale dose subcut TIDM 07/06/20 01/09/25 History subcutaneous cartridge (Novolog PenFill U-100 Insulin aspart) insulin degludec 100 unit/mL (3 23 unit subcut HS 07/06/20 01/09/25 History mL) subcutaneous pen (Tresiba FlexTouch U-100 insulin) cholecalciferol (vitamin D3) 25 25 mcg PO DAILY 07/25/22 01/09/25 History mcg (1,000 unit) capsule (Vitamin D3) chromium picolinate 200 mcg tablet 200 mcg PO DAILY 07/25/22 01/09/25 History coenzyme Q10 100 mg capsule 100 mg PO DAILY 07/25/22 01/09/25 History (CoQ-10) folic acid 800 mcg tablet 800 mg PO DAILY 07/25/22 01/09/25 History magnesium 250 mg tablet 250 mg PO DAILY 07/25/22 01/09/25 History milk thistle 150 mg capsule 150 mg PO DAILY 07/25/22 01/09/25 History potassium gluconate 595 mg (99 mg) 99 mg PO DAILY 07/25/22 01/09/25 History tablet vitamin E 268 mg (400 unit) capsule 400 mg PO DAILY 07/25/22 01/09/25 History zinc gluconate 50 mg tablet 50 mg PO DAILY 07/25/22 01/09/25 History atorvastatin 80 mg tablet 80 mg PO DAILY #30 tabs 07/28/22 01/09/25 Rx aspirin 81 mg tablet,delayed 81 mg PO DAILY #30 tabs 01/20/25 Rx release (Ecotrin Low Strength) clopidogrel 75 mg tablet 75 mg PO DAILY #12 tabs 01/20/25 Rx Hospital Stay Data Consultations 01/09/25 14:51 ED Decision to Admit Stat 01/09/25 15:45 Consult Palliative Care Routine 01/11/25 11:13 Consult Neurology Routine Diagnostic Imagining Performed Chest X-Ray 01/09/25 12:36 XR chest 1V portable CLINICAL HISTORY: weakness, falls COMPARISON STUDY: 11/04/2024 FINDINGS: There is mild aortic ectasia. Heart size and pulmonary vasculature are normal. No effusion, consolidation, or pneumothorax. IMPRESSION: No acute findings. ACT 112: Negative or not required by law. Electronically signed by: Toni Renee M.D. 01/09/2025 1:[address] 01/09/25 12:49 CT OF THE HEAD WITHOUT CONTRAST CLINICAL HISTORY: Fall. COMPARISON STUDY: MRI of the brain September 01, 2022. Head CT January 09, 2025 at 4:[address] DOSE: 625.8 mGy.cm TECHNIQUE: Helical axial images of the head were obtained without IV contrast. Automated exposure control was utilized for the study. A dose lowering technique was utilized adhering to the principles of ALARA. FINDINGS: No acute intracranial hemorrhage, midline shift or mass effect is present. The ventricular system is stable. White matter hypodensity suggests small vessel disease. Foci of encephalomalacia within the left frontal lobe are unchanged. The basal cisterns are patent. No extra-axial collections are present. There are no findings to suggest acute dural sinus thrombosis or acute territorial infarct. There are no calvarial fractures. Left scalp lacerations with skin kasia are noted. IMPRESSION: 1. No acute intracranial findings. 2. No calvarial fractures. ACT 112: Negative or not required by law. Electronically signed by: Chevy Tobias M.D. 01/09/2025 1:14 PM Brain MRI 01/11/25 11:13 MRI of the brain without contrast: Compared to CT dated 01/09/2025. Partially empty sella. Normal craniocervical junction. Large number of focal infarcts noted acute to subacute in timing throughout the right cerebral hemisphere. This usually indicate an embolic phenomenon. No infarcts in the cerebellum or the left hemisphere. Mild atrophy. No intracranial hemorrhage, mass or subdural collections. Impression Large number of focal infarcts of the right central hemisphere. This usually indicates an embolic phenomenon. Electronically signed by Misael Connolly 01-11-2025 5:04 PM Head CTA 01/12/25 10:07 CT angio head w con CLINICAL HISTORY: 79 years-old Male with acute cva. Acute stroke like symptoms COMPARISON STUDY: CTA neck of same day, Brain MRI 01/11/2025 TECHNIQUE: Following the IV administration of 112 cc of Optiray, CT angiogram of the brain was performed from the skull base to the vertex. Images are reviewed in the axial, sagittal, and coronal planes. 3-D MIPS images are created and assessed. IV contrast was administered without complication. All measurements were obtained according to NASCET criteria. A dose lowering technique was utilized adhering to the principles of ALARA. CT DOSE: 538.79 mGy.cm FINDINGS: CT BRAIN: The numerous right-sided cerebral infarcts are better seen on the comparison brain MRI. Involutional changes with chronic microvascular ischemic disease redemonstrated. CT ANGIOGRAM OF THE BRAIN: The imaged bilateral internal carotid arteries are patent. There is a patent stent within the petrous/cavernous segment left ICA. The bilateral anterior and middle cerebral arteries are also patent. Developmentally diminutive left vertebral artery demonstrates multifocal high-grade stenosis within the V2 segment, V3 and V4 segments. Additional short segment high-grade stenosis within the mid V4 segment of the right vertebral artery. Additional areas of high-grade stenosis within the basilar artery. Mild multifocal stenoses of the left posterior cerebral artery. 7 mm segment of high-grade stenosis in the P1 segment right posterior cerebral artery image 113 with additional areas of high-grade stenosis in the P2 segment. Cerebral venous sinuses are patent. Contusion with kasia of the left lateral scalp. No acute fracture identified. Mastoid air cells and middle ear cavities are clear. IMPRESSION: 1. Multifocal high-grade stenoses noted throughout the vertebrobasilar arteries and right posterior cerebral artery as above. 2. Acute right-sided cerebral infarcts are better seen on the comparison brain MRI. 3. Patent stent of the petrous/cavernous segment left ICA ACT 112: Negative or not required by law. The above report was generated using voice recognition software. It may contain grammatical, syntax or spelling errors. Electronically signed by: Luis Borja M.D. 01/12/2025 12:14 PM Neck CTA 01/12/25 10:07 CT angio neck with con CLINICAL HISTORY: acute cva. COMPARISON STUDY: 09/01/2022 TECHNIQUE: Following the IV administration of 112 of Optiray, CT angiogram of the neck was performed from the aortic arch to the skull base. Images are reviewed in the axial, sagittal, and coronal planes. 3-D MIPS images are created and assessed. IV contrast was administered without complication. All measurements were calculated based on NASCET criteria. A dose lowering technique was utilized adhering to the principles of ALARA. FINDINGS: There are airway secretions in the lower trachea. There is progressive mild narrowing of the left subclavian artery due to noncalcified plaque. There are mild carotid bulb calcifications. Stent distally at the left ICA is patent. No significant narrowing or occlusion seen at the common or internal carotid arteries. Right vertebral artery is dominant and left vertebral artery is very diminutive and terminates in PICA, stable. There is stable severe focal narrowing distally at the right vertebral artery. Stable multifocal narrowing at the basilar artery. IMPRESSION: 1. Stent distally at the left ICA is patent. 2. Otherwise stable exam with severe focal narrowing distally at the right vertebral artery and multifocal narrowing at the basilar artery. ACT 112: Negative or not required by law. The above report was generated using voice recognition software. It may contain grammatical, syntax or spelling errors. Electronically signed by: Toni Renee M.D. 01/12/2025 11:51 AM Pending Results Patient Have Any Pending Studies at Discharge: No Discharge Instructions Given to Patient (Per Discharging Provider) You were admitted to the hospital after having multiple falls at home. You underwent testing which revealed that you had a stroke. We consulted the neurology doctors who recommended medication therapy and inpatient rehab at time of discharge. They are also recommending that you see ophthalmology in 2-3 months for vision testing. You had additional testing while in the hospital to evaluate if your stroke was caused by atrial fibrillation. You had an echocardiogram that was unchanged from your previous echo in 2021. You also were on telemetry in the hospital which did not show atrial fibrillation. MEDICATION CHANGES: Neurology is recommending that you take Plavix 75mg by mouth every day for 21 days only (last day 02/01/25) plus baby Aspirin 81mg by mouth every day indefinitely Please continue to take your atorvastatin 80mg by mouth every day as these are all important medications for stroke prevention We made no changes to your other home medications so please continue taking them as prescribed SUMMARY OF TEST RESULTS: See above PENDING TEST RESULTS: None RECOMMENDATIONS FOR FOLLOW-UP: Please follow up with your PCP after being in the hospital Please schedule an appointment with Ophthalmology in 2-3 months per Neurology recommendations for vision testing OTHER INSTRUCTIONS: Seek medical attention if you have: * temperature above 101 * chest pain or trouble breathing * abdominal pain, nausea, vomiting * diarrhea, dark stools or bloody stools * any unanswered questions or concerns Call 911 if symptoms are severe. It has been a pleasure taking care of you. Please take care of yourself. If you have any questions regarding your recent hospitalization please contact [facility] and request Luis Nhiist @ [phone]. Total Time Total Time Spent Total Time Spent (In Minutes): I spent a total of 35 minutes coordinating, documenting and providing care for this patient excluding time spent in the performance of separately billed services or time spent by another provider/QHP. Supervising Physician Co-Signing Physician Notes Patient seen and examined at bedside. Patient has advanced dementia and will benefit from rehabilitation stay. I have seen and discussed the case with the collaborating advanced practitioner. I agree with the above H&P. I have reviewed and confirmed the patients medical history, the findings on physical examination, and the patients diagnosis and treatment plan with Martina SHARPE and agree with the information documented. I spent a total of 20 minutes coordinating, documenting, and providing care for this patient excluding time spent in the performance of separately billed services. All of the aforementioned completed outside of collaborating with the assigned advanced practitioner for a full treatment plan. I have reviewed the advanced practitioner's documentation, and I agree with, and take responsibility for the plan of care
[2025-01-20 15:07] VITALS: PULSE 101
== END 2025-01-20 15:25 | DRG 65 ==
LOC: ED 12:23 → SUATTDRO 14:49 → EDINP 14:49 → 3N 20:19 → 2N 01-12 15:05

== ENCOUNTER 2025-01-25 11:46 | Inpatient (IN) ==
--- OUTSIDE RECORDS SUMMARY | 2025-01-25 11:52 | External Medical Summary | Summary of Care ---
Author Name Unknown Organization [facility] Address [address] [place] [address] Phone [phone] Care Team Providers Care Brazer Electronic Name Role Phone Unavailable Primary Care Provider Unavailabl e Encounter Details Date Type Department Care Team (Late st Contact Info) Description 01/09/2025 Orders Only Family Practice [facility] [address] [facility] [place] [id number] [address], [address] [facility] [place] [id number] Allergies No known active allergiesdocumented as of [...] mouth in the morning. Active Dexcom G6 [employer] Device Use as directed 0 Active Dexcom [...] of Assessment Author No 09/04/2022 5:20 PM Asah Lu RN * Are you blind or [...] doing errands alone such as visiting a doctor’s office or shopping? (15 years old or [...] this encounter Medical Devices Implanted Type Area Magazine Supervisor Device Identifier Shelf Expiration Date Model / Serial / Lot Clip Quick 2.8mm 230cm - [id number] Implanted:Qty: 1 on 08/31/2020 by Tylor Tobias MD at [facility] [employer] 10/21/2022 [id number] / K Angioseal Vip 8 Fr - [id number] Implanted:Qty: 1 on 09/05/2022 by Jose Osorio MD at OR [facility] [employer] [id number] 04/20/2023 [id number] / / [id number] documented as of this encounter Procedures Procedure Name Priority Date/Time Associated Diagnosis Comments CHEMISTRY-OUTSIDE Routine 01/08/2025 TSH Routine 01/08/2025 documented in this encounter Results * (ABNORMAL) CHEMISTRY-OUTSIDE (01/08/2025) Not all results display below - see scan for full detail OUTSIDE LAB (SEE SCANNED REPORT) Comment:SCAN INCLUDES - E.R. LABS: FREE T4, TSH, CBCD, UA, AMMONIA LEVEL, PT, INR, PTT, CMP, TROPONIN CREATININE 1.08 0.70 - 1.30 MG/DL OUTSIDE LAB (SEE SCANNED REPORT) EGFR 71 >=60 ML/MIN/1.73M 2 OUTSIDE LAB (SEE SCANNED REPORT) POTASSIUM 4.4 3.5 - 5.1 MMOL/L OUTSIDE LAB (SEE SCANNED REPORT) GLUCOSE 148(A) 70 - 110 MG/DL OUTSIDE LAB (SEE SCANNED REPORT) HOURS FASTING OUTSID E LAB (SEE SCANNED REPORT) TRIGLYCERIDES-OU TSIDE LAB OUTSIDE LAB (SEE SCANNED REPORT) CHOLESTEROL-OUTS AMBROCIO LAB OUTSIDE LAB (SEE SCANNED REPORT) HDL-OUTSIDE LAB OUTS AMBROCIO LAB (SEE SCANNED REPORT) CHOL/HDL RATIO-OUTSIDE LAB OUTSIDE LAB (SEE SCANNED REPORT) LDL (CALCULATED)-OUT SIDE LAB OUTSIDE LAB (SEE SCANNED REPORT) LDL (DIRECT MEASURE)-OUTSIDE LAB OUTSIDE LAB (SEE SCANNED REPORT) HEMOGLOBIN, M5E-[id number] LAB OUTSIDE LAB (SEE SCANNED REPORT) PHOSPHORUS-OUTSI DE LAB OUTSIDE LAB (SEE SCANNED REPORT) PTH-OUTSIDE LAB OUTS AMBROCIO LAB (SEE SCANNED REPORT) MICROALBUMIN RATIO-OUTSIDE LAB OUTSIDE LAB (SEE SCANNED REPORT) PROTEIN, UA-OUTSIDE LAB NEGATIVE NEGATIVE MG/DL OUTSIDE LAB (SEE SCANNED REPORT) HGB 15.8 13.5 - 18.0 GM/DL OUTSIDE LAB (SEE SCANNED REPORT) 01/08/2025 Agustin Xeebel DO LABORATORY Final Resu lt Performing Organization Address [facility] Phone Number OUTSIDE LAB (SEE SCANNED REPORT) * TSH (01/08/2025) TSH - OUTSIDE LAB 1.205 0.360 - 3.740 MCIU/ML OUTSIDE LAB (SEE SCANNED REPORT) Blood Venous blood specimen / Unknown 01/08/2025 [place] [employer] DO LAB BLOOD ORDERABLES Final Result Performing Organization Address [facility] Co de Phone Number OUTSIDE LAB (SEE SCANNED REPORT) documented in this encounter Advance Directives * Full Code (Latest Code Status on File) Date Activated Date Inactivated Comments 09/04/2022 6:24 PM 09/12/2022 5:30 PM This order reflects the patients wishes and were consensually agreed upon. Question Answer Comments Discussion of Advance Directives occurred with: Patient/Family
[2025-01-25 12:17] LABS: Hematocrit (blood only) 42.3 % (42.0-52.0); Hemoglobin 14.6 g/dl (14.0-18.0); Mean Corpuscular Hemoglobin 31.5 pg (25.0-34.0); Mean Corpuscular Hgb Conc 34.5 g/dL (32.0-36.0); Mean Corpuscular Volume 91.4 fL (80.0-100.0); Mean Platelet Volume 9.6 fL (9.4-12.4); Platelet Count 310 K/uL (130-400); RDW Coefficient of Variation 13.2 % (11.5-14.5); RDW Standard Deviation 44.1 fL (36.4-46.3); Red Blood Count 4.63 M/uL (4.70-6.10); White Blood Count 8.28 K/ul (4.8-10.8)
--- NOTE | 2025-01-25 12:19 | XRay Report ---
XR chest 1V portable HISTORY: 79 years-old Male Chest pain, nonspecific acute chest pain COMPARISON: 01/09/2025 TECHNIQUE: AP view of the chest FINDINGS: Cardiac silhouette is enlarged. Mild right hemidiaphragmatic elevation and linear subsegmental bibasi lar atelectasis. No pneumothorax or overt pulmonary edema. Bones appear grossly intact. IMPRESSION: Cardiomegaly with mild bibasilar atelectasis. ACT 112: Negative or not required by law. The above report was generated using voice recognition software. It may contain grammatical, syntax o r spelling errors. Electronically signed by: Luis Borja M.D. 01/25/2025 12:16 PM
[2025-01-25 12:42] LABS: Albumin Level 3.7 gm/dl (3.4-5.0); BUN Creatinine Ratio 34.2 (10-20); Basophils # (auto) 0.01 K/uL (0.00-0.20); Basophils % (auto) 0.1 %; Bilirubin,Total 1.1 mg/dl (0.2-1.0); Calcium 9.7 mg/dl (8.6-10.3); Creatinine Clr Calc Pharmacy 86.7 ml/min; Globulin 3.8 gm/dl (2.5-4.0); Immature Granulocytes # (auto) 0.01 K/uL (0.01-0.20); Immature Granulocytes % (auto) 0.1 %; Lymphocytes # (auto) 1.33 K/uL (1.20-3.40); Lymphocytes % (auto) 16.1 %; Magnesium 2.1 mg/dl (1.7-2.4); Monocytes # (auto) 1.21 K/uL (0.11-0.59); Monocytes % (auto) 14.6 %; Neutrophils # (auto) 5.72 K/uL (1.40-6.50); Neutrophils % (auto) 69.1 %; Phosphorus 2.8 mg/dl (2.5-4.9); Potassium 3.5 mmol/L (3.5-5.1); Prothrombin Time 10.8 Seconds (9.0-12.0); Total Protein 7.5 gm/dl (6.0-8.3); Toxic Vacuolation 1+
[2025-01-25 12:49] LABS: Troponin I High Sensitivity 37.3 pg/ml (0-20)
--- NOTE | 2025-01-25 12:52 | Emergency Department Note ---
Impression & Plan Aspiration pneumonia, Vascular dementia, Altered mental status ED Provider Note NAME: JC NEGRETE AGE: 79 SEX: M : 1945 ARRIVES VIA: Ambulance INFORMANT: Patient ED PROVIDER(S): Martín Victor MD CHIEF COMPLAINT: Weakness, pneumonia. PLAN: Disposition: Admit MEDICAL DECISION MAKING: The patient is a 79-year-old gentleman with past medical history of vascular dementia, type 2 diabetes who presents to the emergency department via EMS from his [facility] facility for evaluation of generalized decline/weakness and mental status in the setting of being discharged from this facility this past Sunday after admission for a fall and diagnosis of multiple strokes consistent with the patient's history of vascular dementia. Patient's reports she was concerned because he continued to get worse at the rehab facility. Per EMS report there was suspicion for pneumonia and plan to initiate treatment today was considered. However the patient's was concerned and requested transfer to the hospital. On my evaluation the patient is no acute distress, afebrile with O2 saturation 89% on room air improving to low 90s on nasal cannula. Heart rate is in the 90s and vital signs otherwise stable. He appears clinically dry. He has diminished breath sounds of the bases and lungs are otherwise clear with normal respiratory effort. Neurologic exam is limited secondary to severe vascular dementia. EKG without overt acute ischemia. CXR negative for acute cardiopulmonary process per my personal preliminary review/interpretation. WBC within normal limits without neutrophilia or left shift. H/H and platelets within normal limits. Chemistry without metabolic acidosis. BUNs/creatinine is 34 consistent with patient's clinically dry appearance. Lactic acid 1.5, within normal limits. LFTs unremarkable. High-sensitivity troponin is 37 with repeat stable at 38, nonspecific. Lipase is normal. Procalcitonin is mildly elevated at 1.0 consistent with aspiration pneumonia suspected. TSH within normal limits. UA demonstrates RBCs without bacteria WBCs or nitrites. CTA of the chest was performed was negative for PE. Note is made of occlusion of the right bronchus intermedius and distal left lower lobe segmental bronchus resulting in postobstructive atelectasis. Additional suspicion of low density material in the medial right lower lobe concerning for aspiration pneumonia. CT of the abdomen pelvis also suggestive of duodenitis. Patient was treated empirically with IV ceftriaxone following blood cultures. However given concern for aspiration antibiotic coverage broadened with Zosyn. MRSA swab was pending. Patient's did express concern about the patient's decline and was pleased about plan for admission. Case was discussed with Luis Jaramillo hospitalist, who will evaluate the patient for admission. Further management per admitting team. Triage Nursing notes reviewed and agree them. Prior/external medical records reviewed Vital Signs: reviewed Differential diagnosis: Infection, dehydration, metabolic abnormality, hypo/hyperglycemia, electrolyte disturbance, anemia, hypoxia, cardiac sources, intracerebral event, toxicologic, neurologic, as well as other pathologies. ER treatment provided: See below. Diagnostics interpreted by me: ECG: Normal sinus rhythm, 92 bpm, left anterior fascicular block, LVH, nonspecific ST abnormality, no overt ST elevation or depression, QTc 460, QRS 110. Cardiac Monitoring: An order for continuous cardiac monitoring was placed and demonstrated NSR 92 bpm, no ectopy. Laboratory studies: See below Imaging studies: See below Consultation(s): Luis Jaramillo hospitalyovani. HPI: The patient is a 79-year-old gentleman with past medical history of vascular dementia, type 2 diabetes who presents to the emergency department via EMS from his [facility] facility for evaluation of generalized decline/weakness and mental status in the setting of being discharged from this facility this past Sunday after admission for a fall and diagnosis of multiple strokes consistent with the patient's history of vascular dementia. Patient's reports she was concerned because he continued to get worse at the rehab facility. Per EMS report there was suspicion for pneumonia and plan to initiate treatment today was considered. However the patient's was concerned and requested transfer to the hospital. ROS: See above HPI for pertinent positives & negatives. A total of 10 systems reviewed and were otherwise negative. VITALS:See Below PHYSICAL EXAMINATION: GENERAL: Awake, alert, acute on chronically ill-appearing, in no distress HENT: Normocephalic, atraumatic. Oropharynx with dry mucous membranes. EYES: Normal conjunctiva. Sclera non-icteric. EOMI. No nystamgus. PEARRL. NECK: Supple. No nuchal rigidity. FROM. No JVD. RESPIRATORY: Diminished at the bases and otherwise clear to auscultation with normal respiratory effort. CARDIAC: Regular rate, normal rhythm. Extremities warm and well perfused. Pulses equal. ABDOMEN: Soft, non-distended. No tenderness to palpation. No rebound or guarding. No masses. MUSCULOSKELETAL: Chest examination reveals no tenderness. The back is symmetrical on inspection without obvious abnormality. There is no CVA tenderness to palpation. No joint edema. LOWER EXTREMITIES: Calves are equal size bilaterally and non-tender. No edema. No discoloration. NEURO: Limited secondary to severe dementia. SKIN: No rash or jaundice noted. 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 Scalp laceration Frequent falls (Acute) Closed head injury (Acute) DM2 (diabetes mellitus, type 2) Vertebral artery occlusion HTN (hypertension) Carotid stenosis, symptomatic, with infarction Acute CVA (cerebrovascular accident) Memory impairment Transient cerebral ischemia (Acute) Blood glucose elevated (Acute) Medical History H/O: CVA (cerebrovascular accident) Vascular dementia Stroke TIA (transient ischemic attack) Acute confusion Surgical History No pertinent past surgical history Family History Father , He in his 70s of an CA Primary Parkinson's disease Myocardial infarction Mother , age 101 No problems noted. Social History Smoking Status: Unknown if ever smoked Tobacco Type: Cigarettes Cigarettes Per Day: Pt unable to answer; Do You Dip or Chew Tobacco: No; Preferred Language: Tajik Communication Ability: Effective Vet Assistant Required: No Beliefs That Will Affect Care: None Current Living Situation: Spouse Feels Safe at Home: Declines to Answer Assistive Devices: None Allergies Allergies Allergy/AdvReac Type Severity Reaction Status Date / Time No Known Allergies Allergy Verified 01/09/25 14:31 Home Meds Home Medications Medication Instructions Recorded Confirmed insulin aspart U-100 100 unit/mL 0 - 12 sliding scale dose subcut 07/06/20 01/25/25 subcutaneous cartridge (Novolog TIDM PenFill U-100 Insulin aspart) insulin degludec 100 unit/mL (3 23 unit subcut HS 07/06/20 01/25/25 mL) subcutaneous pen (Tresiba FlexTouch U-100 insulin) cholecalciferol (vitamin D3) 25 25 mcg PO DAILY 07/25/22 01/25/25 mcg (1,000 unit) capsule (Vitamin D3) coenzyme Q10 100 mg capsule 100 mg PO DAILY 07/25/22 01/25/25 (CoQ-10) folic acid 800 mcg tablet 800 mg PO DAILY 07/25/22 01/25/25 magnesium 250 mg tablet 250 mg PO DAILY 07/25/22 01/25/25 potassium gluconate 595 mg (99 mg) 99 mg PO DAILY 07/25/22 01/25/25 tablet zinc gluconate 50 mg tablet 50 mg PO DAILY 07/25/22 01/25/25 acetaminophen 325 mg tablet 650 mg PO Q6H PRN Mild Pain (Scale 01/25/25 01/25/25 Score 1-3) acetaminophen 325 mg tablet 650 mg PO Q4H PRN Fever 01/25/25 01/25/25 (Tylenol) acetaminophen 650 mg rectal 650 mg DC Q4H PRN Fever 01/25/25 01/25/25 suppository bisacodyl 10 mg rectal suppository 10 mg DC DAILY PRN Constipation 01/25/25 01/25/25 (Dulcolax (bisacodyl)) magnesium hydroxide 400 mg/5 mL 2,400 mg PO DAILY PRN Constipation 01/25/25 01/25/25 oral suspension (Milk of Magnesia) sodium phosphates 19 gram-7 118 ml DC DAILY PRN Constipation 01/25/25 01/25/25 gram/118 mL enema (Fleet Enema) Previous Rx's Medication Instructions Recorded atorvastatin 80 mg tablet 80 mg PO DAILY #30 tabs 07/28/22 aspirin 81 mg tablet,delayed 81 mg PO DAILY #30 tabs 01/20/25 release (Ecotrin Low Strength) clopidogrel 75 mg tablet 75 mg PO DAILY #12 tabs 01/20/25 Results & Data (ED) Vital Signs Vital Signs - 24 hr 01/25/25 11:50 01/25/25 11:51 01/25/25 11:51 Temperature 37.0 C Temperature Source Oral Pulse Rate 92 H Pulse Rate [Apical] Pulse Rate from SpO2 Sensor Pulse Rhythm [Apical] Pulse Strength [Apical] Respiratory Rate 22 Respiratory Effort / Characteristics Non-Labored Spontaneous Respiratory Depth Normal Respiratory Pattern Blood Pressure 137/94 137/94 137/94 Blood Pressure [Right Arm] Blood Pressure Mean 108 106 106 Blood Pressure Mean [Right Arm] Blood Pressure Position Lying Blood Pressure Position [Right Arm] Pulse Oximetry 89 L Oxygen Delivery Method Room Air Oxygen Flow Rate Sepsis Recent Fever Within 48 Hours No Sepsis New/Unexplained Change in Mental Status N/A Sepsis Action Taken by Nursing No Action Required 01/25/25 11:51 01/25/25 12:00 01/25/25 12:00 Temperature Temperature Source Pulse Rate Pulse Rate [Apical] Pulse Rate from SpO2 Sensor Pulse Rhythm [Apical] Pulse Strength [Apical] Respiratory Rate Respiratory Effort / Characteristics Respiratory Depth Respiratory Pattern Blood Pressure 137/94 144/95 H 144/95 H Blood Pressure [Right Arm] Blood Pressure Mean 106 110 110 Blood Pressure Mean [Right Arm] Blood Pressure Position Blood Pressure Position [Right Arm] Pulse Oximetry Oxygen Delivery Method Oxygen Flow Rate Sepsis Recent Fever Within 48 Hours Sepsis New/Unexplained Change in Mental Status Sepsis Action Taken by Nursing 01/25/25 12:00 01/25/25 12:00 01/25/25 12:00 Temperature Temperature Source Pulse Rate Pulse Rate [Apical] Pulse Rate from SpO2 Sensor Pulse Rhythm [Apical] Pulse Strength [Apical] Respiratory Rate Respiratory Effort / Characteristics Respiratory Depth Respiratory Pattern Blood Pressure 144/95 H 144/95 H 144/95 H Blood Pressure [Right Arm] Blood Pressure Mean 110 110 110 Blood Pressure Mean [Right Arm] Blood Pressure Position Blood Pressure Position [Right Arm] Pulse Oximetry Oxygen Delivery Method Oxygen Flow Rate Sepsis Recent Fever Within 48 Hours Sepsis New/Unexplained Change in Mental Status Sepsis Action Taken by Nursing 01/25/25 12:00 01/25/25 12:00 01/25/25 12:06 Temperature Temperature Source Pulse Rate 90 Pulse Rate [Apical] Pulse Rate from SpO2 Sensor 89 Pulse Rhythm [Apical] Pulse Strength [Apical] Respiratory Rate Respiratory Effort / Characteristics Respiratory Depth Respiratory Pattern Blood Pressure 144/95 H 144/95 H Blood Pressure [Right Arm] Blood Pressure Mean 110 110 Blood Pressure Mean [Right Arm] Blood Pressure Position Blood Pressure Position [Right Arm] Pulse Oximetry 92 Oxygen Delivery Method Oxygen Flow Rate Sepsis Recent Fever Within 48 Hours Sepsis New/Unexplained Change in Mental Status Sepsis Action Taken by Nursing 01/25/25 12:21 01/25/25 12:21 01/25/25 12:21 Temperature Temperature Source Pulse Rate 86 95 H 93 H Pulse Rate [Apical] Pulse Rate from SpO2 Sensor 92 H Pulse Rhythm [Apical] Pulse Strength [Apical] Respiratory Rate 22 24 Respiratory Effort / Characteristics Respiratory Depth Respiratory Pattern Blood Pressure Blood Pressure [Right Arm] Blood Pressure Mean Blood Pressure Mean [Right Arm] Blood Pressure Position Blood Pressure Position [Right Arm] Pulse Oximetry 92 92 Oxygen Delivery Method Nasal Cannula Oxygen Flow Rate 3 Sepsis Recent Fever Within 48 Hours Sepsis New/Unexplained Change in Mental Status Sepsis Action Taken by Nursing 01/25/25 14:00 01/25/25 15:04 01/25/25 16:00 Temperature Temperature Source Pulse Rate Pulse Rate [Apical] 80 81 78 Pulse Rate from SpO2 Sensor Pulse Rhythm [Apical] Regular Pulse Strength [Apical] Normal Respiratory Rate 21 22 18 Respiratory Effort / Characteristics Non-Labored Spontaneous Non-Labored Spontaneous Non-Labored Respiratory Depth Normal Normal Normal Respiratory Pattern Regular Blood Pressure Blood Pressure [Right Arm] 158/90 H 135/80 147/87 H Blood Pressure Mean Blood Pressure Mean [Right Arm] 112 98 107 Blood Pressure Position Blood Pressure Position [Right Arm] Lying Pulse Oximetry 95 92 93 Oxygen Delivery Method Nasal Cannula Nasal Cannula Nasal Cannula Oxygen Flow Rate 3 2 3 Sepsis Recent Fever Within 48 Hours Sepsis New/Unexplained Change in Mental Status Sepsis Action Taken by Nursing 01/25/25 17:34 01/25/25 18:00 Temperature Temperature Source Pulse Rate 80 Pulse Rate [Apical] 89 Pulse Rate from SpO2 Sensor Pulse Rhythm [Apical] Regular Pulse Strength [Apical] Normal Respiratory Rate 16 Respiratory Effort / Characteristics Non-Labored Respiratory Depth Normal Respiratory Pattern Regular Blood Pressure Blood Pressure [Right Arm] 139/84 Blood Pressure Mean Blood Pressure Mean [Right Arm] 102 Blood Pressure Position Blood Pressure Position [Right Arm] Pulse Oximetry 98 Oxygen Delivery Method Nasal Cannula Oxygen Flow Rate 3 Sepsis Recent Fever Within 48 Hours Sepsis New/Unexplained Change in Mental Status Sepsis Action Taken by Nursing Laboratory Data Attestation: I reviewed the patient's lab results. 01/25/25 11:55 01/25/25 11:55 Lab Results 01/25/25 01/25/25 01/25/25 Range/Units 11:55 12:03 13:15 WBC 8.28 (4.8-10.8) K/ul RBC 4.63 L (4.70-6.10) M/uL Hgb 14.6 (14.0-18.0) g/dl Hct 42.3 (42.0-52.0) % MCV 91.4 (80.0-100.0) fL MCH 31.5 (25.0-34.0) pg MCHC 34.5 (32.0-36.0) g/dL RDW Std Deviation 44.1 (36.4-46.3) fL RDW Coeff of Nikita 13.2 (11.5-14.5) % Plt Count 310 (130-400) K/uL MPV 9.6 (9.4-12.4) fL Immature Gran % (Auto) 0.1 % Neut % (Auto) 69.1 % Lymph % (Auto) 16.1 % [place] % (Auto) 14.6 % Eos % (Auto) 0.0 % Baso % (Auto) 0.1 % Neut # (Auto) 5.72 (1.40-6.50) K/uL Lymph # (Auto) 1.33 (1.20-3.40) K/uL [place] # (Auto) 1.21 H (0.11-0.59) K/uL Eos # (Auto) 0.00 (0.00-0.50) K/uL Baso # (Auto) 0.01 (0.00-0.20) K/uL Immature Gran # (Auto) 0.01 (0.01-0.20) K/uL Toxic Vacuolation 1+ PT 10.8 (9.0-12.0) Seconds INR 1.0 (0.9-1.1) Sodium 142 (136-145) mmol/L Potassium 3.5 (3.5-5.1) mmol/L Chloride 106 (98-107) mmol/L Carbon Dioxide 28 (21-32) mmol/L Anion Gap 8 (3-11) BUN 26 H (6-23) mg/dl Creatinine 0.76 (0.6-1.4) mg/dl Est Cr Clr Drug Dosing 86.7 ml/min eGFR 92.57 BUN/Creatinine Ratio 34.2 H (10-20) Glucose 198 H (70-99(Fasting)) mg/dl Lactate (0.4-2.0) mmol/L Calcium 9.7 (8.6-10.3) mg/dl Phosphorus 2.8 (2.5-4.9) mg/dl Magnesium 2.1 (1.7-2.4) mg/dl Total Bilirubin 1.1 H (0.2-1.0) mg/dl AST 36 (13-39) U/L ALT 31 (7-52) U/L Alkaline Phosphatase 66 (34-104) U/L Troponin I High Sens 37.3 H (0-20) pg/ml Total Protein 7.5 (6.0-8.3) gm/dl Albumin 3.7 (3.4-5.0) gm/dl Globulin 3.8 (2.5-4.0) gm/dl Albumin/Globulin Ratio 1.0 (0.9-2) Lipase 11 (11-82) U/L Procalcitonin 1.00 H (0-0.5) ng/ml TSH 1.200 (0.300-4.500) uIu/ml Urine Color Dark Yellow Urine Appearance Clear (Clear) Urine pH 5.5 (4.5-7.5) Ur Specific [place] 1.037 H (1.000-1.030) Urine Protein 3+ H (Negative) Urine Glucose (UA) 1+ H (Negative) Urine Ketones Trace H (Negative) Urine Blood 2+ H (Negative) Urine Nitrite Negative (Negative) Urine Bilirubin 1+ H (Negative) Urine Urobilinogen Negative (Negative) Ur Leukocyte Esterase Trace H (Negative) Urine WBC (Auto) 0-5 (0-5) /hpf Urine RBC (Auto) >20 H (0-2) /hpf U Hyaline Cast (Auto) 0-2 (0-2) /lpf U Epithel Cells (Auto) 0-2 (0-2) /hpf Urine Bacteria (Auto) None Seen (None Seen) Nasal Screen MRSA (PCR) (Negative) Adenovirus (PCR) Not Detected (NotDetected) B. pertussis DNA (PCR) Not Detected (NotDetected) B.parapertussis DNA PCR Not Detected (NotDetected) C. pneumoniae DNA (PCR) Not Detected (NotDetected) Coronavirus OC43 (PCR) Not Detected (NotDetected) Coronavirus HKU1 (PCR) Not Detected (NotDetected) Coronavirus 229E (PCR) Not Detected (NotDetected) SARS-CoV-2 (PCR) Not Detected (NotDetected) Coronavirus NL63 (PCR) Not Detected (NotDetected) Human Metapneumovir PCR Not Detected (NotDetected) Influenza Type A (PCR) Not Detected (NotDetected) Influenza Type B (PCR) Not Detected (NotDetected) M. pneumoniae (PCR) Not Detected (NotDetected) Parainfluenza 1 (PCR) Not Detected (NotDetected) Parainfluenza 2 (PCR) Not Detected (NotDetected) Parainfluenza 3 (PCR) Not Detected (NotDetected) Parainfluenza 4 (PCR) Not Detected (NotDetected) RSV (PCR) Not Detected (NotDetected) Entero/Rhino (PCR) Not Detected (NotDetected) 01/25/25 01/25/25 01/25/25 Range/Units 13:53 14:46 17:00 WBC (4.8-10.8) K/ul RBC (4.70-6.10) M/uL Hgb (14.0-18.0) g/dl Hct (42.0-52.0) % MCV (80.0-100.0) fL MCH (25.0-34.0) pg MCHC (32.0-36.0) g/dL RDW Std Deviation (36.4-46.3) fL RDW Coeff of Nikita (11.5-14.5) % Plt Count (130-400) K/uL MPV (9.4-12.4) fL Immature Gran % (Auto) % Neut % (Auto) % Lymph % (Auto) % [place] % (Auto) % Eos % (Auto) % Baso % (Auto) % Neut # (Auto) (1.40-6.50) K/uL Lymph # (Auto) (1.20-3.40) K/uL [place] # (Auto) (0.11-0.59) K/uL Eos # (Auto) (0.00-0.50) K/uL Baso # (Auto) (0.00-0.20) K/uL Immature Gran # (Auto) (0.01-0.20) K/uL Toxic Vacuolation PT (9.0-12.0) Seconds INR (0.9-1.1) Sodium (136-145) mmol/L Potassium (3.5-5.1) mmol/L Chloride (98-107) mmol/L Carbon Dioxide (21-32) mmol/L Anion Gap (3-11) BUN (6-23) mg/dl Creatinine (0.6-1.4) mg/dl Est Cr Clr Drug Dosing ml/min eGFR BUN/Creatinine Ratio (10-20) Glucose (70-99(Fasting)) mg/dl Lactate 1.5 (0.4-2.0) mmol/L Calcium (8.6-10.3) mg/dl Phosphorus (2.5-4.9) mg/dl Magnesium (1.7-2.4) mg/dl Total Bilirubin (0.2-1.0) mg/dl AST (13-39) U/L ALT (7-52) U/L Alkaline Phosphatase (34-104) U/L Troponin I High Sens 38.4 H 42.2 H (0-20) pg/ml Total Protein (6.0-8.3) gm/dl Albumin (3.4-5.0) gm/dl Globulin (2.5-4.0) gm/dl Albumin/Globulin Ratio (0.9-2) Lipase (11-82) U/L Procalcitonin (0-0.5) ng/ml TSH (0.300-4.500) uIu/ml Urine Color Urine Appearance (Clear) Urine pH (4.5-7.5) Ur Specific [place] (1.000-1.030) Urine Protein (Negative) Urine Glucose (UA) (Negative) Urine Ketones (Negative) Urine Blood (Negative) Urine Nitrite (Negative) Urine Bilirubin (Negative) Urine Urobilinogen (Negative) Ur Leukocyte Esterase (Negative) Urine WBC (Auto) (0-5) /hpf Urine RBC (Auto) (0-2) /hpf U Hyaline Cast (Auto) (0-2) /lpf U Epithel Cells (Auto) (0-2) /hpf Urine Bacteria (Auto) (None Seen) Nasal Screen MRSA (PCR) Negative (Negative) Adenovirus (PCR) (NotDetected) B. pertussis DNA (PCR) (NotDetected) B.parapertussis DNA PCR (NotDetected) C. pneumoniae DNA (PCR) (NotDetected) Coronavirus OC43 (PCR) (NotDetected) Coronavirus HKU1 (PCR) (NotDetected) Coronavirus 229E (PCR) (NotDetected) SARS-CoV-2 (PCR) (NotDetected) Coronavirus NL63 (PCR) (NotDetected) Human Metapneumovir PCR (NotDetected) Influenza Type A (PCR) (NotDetected) Influenza Type B (PCR) (NotDetected) M. pneumoniae (PCR) (NotDetected) Parainfluenza 1 (PCR) (NotDetected) Parainfluenza 2 (PCR) (NotDetected) Parainfluenza 3 (PCR) (NotDetected) Parainfluenza 4 (PCR) (NotDetected) RSV (PCR) (NotDetected) Entero/Rhino (PCR) (NotDetected) Administered Medications Dextrose/Sodium Chloride (D5w And 1/2nss) 1,000 mls @ 80 mls/hr IV .[id number] PAO Stop: 01/26/25 15:59 Last Admin: 01/25/25 16:39 Dose: 80 mls/hr Documented By: CLIF Insulin Aspart (Insulin Aspart Per Unit Charge) 0 units SC Q6H PAO Stop: 02/24/25 18:29 Last Admin: 01/25/25 21:04 Dose: 2 units Documented By: FREDA Co-signed By: ARNALDO Insulin Glargine (Lantus Per Unit Charge) 15 units SQ HS PAO Stop: 02/24/25 20:59 Last Admin: 01/25/25 21:05 Dose: 15 units Documented By: FREDA Co-signed By: ARNALDO Discontinued Medications Sodium Chloride (Nss) 1,000 mls @ 999 mls/hr IV .[id number] ONE Stop: 01/25/25 14:01 Last Infusion: 01/25/25 14:40 Dose: Infused Documented By: Admin: 01/25/25 13:17 Dose: 999 mls/hr Documented By: YAHAIRA Ceftriaxone Sodium (Rocephin) 2,000 mg in 50 mls @ 100 mls/hr IV NOW STA Stop: 01/25/25 13:30 Last Infusion: 01/25/25 14:40 Dose: Infused Documented By: Admin: 01/25/25 14:03 Dose: 100 mls/hr Documented By: YAHAIRA Piperacillin Sod/Tazobactam Sod (Zosyn) 4.5 gm in 100 mls @ 200 mls/hr IV NOW ONE; Protocol Stop: 01/25/25 14:54 Last Infusion: 01/25/25 15:52 Dose: Infused Documented By: Admin: 01/25/25 14:44 Dose: 200 mls/hr Documented By: YAHAIRA Vancomycin HCl 1,750 mg/ (Sodium Chloride) 535 mls @ 200 mls/hr IV NOW STA Stop: 01/25/25 18:36 Last Admin: 01/25/25 16:38 Dose: 200 mls/hr Documented By: CLIF Ioversol (Optiray 320 125ml) 118 ml IV ONCE ONE Stop: 01/25/25 13:32 Last Admin: 01/25/25 13:32 Dose: 118 ml Documented By: CHANO Imaging Data Radiologist's Impression: Chest X-Ray 01/25/25 11:57 XR chest 1V portable HISTORY: 79 years-old Male Chest pain, nonspecific acute chest pain COMPARISON: 01/09/2025 TECHNIQUE: AP view of the chest FINDINGS: Cardiac silhouette is enlarged. Mild right hemidiaphragmatic elevation and linear subsegmental bibasilar atelectasis. No pneumothorax or overt pulmonary edema. Bones appear grossly intact. IMPRESSION: Cardiomegaly with mild bibasilar atelectasis. ACT 112: Negative or not required by law. The above report was generated using voice recognition software. It may contain grammatical, syntax or spelling errors. Electronically signed by: Luis Borja M.D. 01/25/2025 12:16 PM Abdomen/Pelvis CT 01/25/25 12:58 EXAMINATION: CT of the abdomen and pelvis performed after the administration of IV contrast TECHNIQUE: Helical CT images from the lung bases through the symphysis pubis were obtained with contrast. Coronal and sagittal reformatted images were generated at a workstation for further assessment. Dose reduction techniques were achieved by using automatic exposure control and/or adjustment of mA and/or kV according to patient size and/or use of iterative reconstruction technique. COMPARISON: None HISTORY: Weakness FINDINGS: Lower chest: No consolidation. No pleural effusion or pneumothorax. Liver: No suspicious liver lesions. Portal veins appear patent. Gallbladder: No gallstones. Spleen: Normal size. Pancreas: No suspicious pancreatic lesions. The pancreatic duct is not dilated. Adrenal glands: No adrenal nodules. Kidneys: No hydronephrosis or obstructing renal stones. Bladder / Pelvic organs: The prostate gland is enlarged. The urinary bladder is incompletely distended. Bowel: No bowel obstruction. There is an area of wall thickening and mucosal hyperenhancement involving the first and second portions of the duodenum. Edema of the wall and mild free fluid is seen to surround the region. The appendix is nonvisualized. A short segment of intussusception is seen within the small bowel jejunum in the left upper quadrant, series 9 image 140. No evidence for obstruction. Lymph nodes: No retroperitoneal, mesenteric, or pelvic lymphadenopathy. Peritoneum / Retroperitoneum: No ascites. No free air. Vessels: No infrarenal aortic aneurysm. Heavy calcified and noncalcified aortoiliac atherosclerosis. Bones and soft tissues: No suspicious lesion in the bones. IMPRESSION: Mild wall thickening, mucosal hyperenhancement, and surrounding free fluid about the duodenum, which may be seen with duodenitis. A short segment of intussusception, possibly transient, seen within the jejunum in the left upper quadrant. No associated obstruction. CT head without contrast History: Trauma Comparison: None Technique: Using multidetector thin collimation helical acquisition technique, axial, coronal and sagittal CT images from the skull base to the vertex were obtained without intravenous contrast. Dose reduction techniques were achieved by using automatic exposure control and/or adjustment of mA and/or kV according to patient size and/or use of iterative reconstruction technique. Findings: No intracranial hemorrhage, mass-effect, or midline shift. The ventricles are proportionate to the cerebral sulci. The pérez to white matter differentiation of the cerebral hemispheres is preserved. The basal cisterns are patent. The visualized paranasal sinuses are clear. Mastoid air cells are clear. Impression: No acute intracranial pathology. Electronically signed by Antonio Hanley 01-25-2025 2:45 PM Chest CTA 01/25/25 12:58 CT pulmonary angiogram with IV contrast History: Fever COMPARISON: None TECHNIQUE: CT angiography of the chest was performed without IV contrast followed by IV contrast, including 3D post processing CTA image reconstruction. Dose reduction techniques were achieved by using automatic exposure control and/or adjustment of mA and/or kV according to patient size and/or use of iterative reconstruction technique. FINDINGS: Diagnostic quality: Adequate There is no evidence for pulmonary embolism. The heart is not enlarged. There are heavy coronary calcifications. There is no pericardial effusion. There are no abnormally enlarged hilar or mediastinal lymph nodes. There is occlusion of the right bronchus intermedius, as well as the distal left lower lobe segmental bronchus. An area of ill-defined low-density material is seen within the medial right lower lobe, series 5 image 31, measuring 3.5 cm in diameter. Moderate right and mild left confluent lower lobe atelectasis. There is no pleural effusion. Inward bowing of the posterior membrane of the trachea with narrowing of the AP diameter, which may be seen with excessive dynamic airway collapse and tracheobronchomalacia, which could be further evaluated with pulmonology, if indicated. Limited visualized upper abdomen. No destructive osseous changes are seen. IMPRESSION: No evidence for pulmonary embolism. Occlusion of the right bronchus intermedius and distal left lower lobe segmental bronchus, resulting in postobstructive atelectasis. Additionally, there is an area of ill-defined low density material in the medial right lower lobe, concerning for aspiration pneumonia. Electronically signed by Antonio Hanley 01-25-2025 2:[address] 01/25/25 13:01 CT head without contrast History: Weakness. Dementia Comparison: None Technique: Using multidetector thin collimation helical acquisition technique, axial, coronal and sagittal CT images from the skull base to the vertex were obtained without intravenous contrast. Dose reduction techniques were achieved by using automatic exposure control and/or adjustment of mA and/or kV according to patient size and/or use of iterative reconstruction technique. Findings: No intracranial hemorrhage, mass-effect, or midline shift. The ventricles are proportionate to the cerebral sulci. Small, chronic infarct in the high left frontal lobe, otherwise of the pérez to white matter differentiation of the cerebral hemispheres is preserved. The basal cisterns are patent. There is moderate cerebral atrophy. Moderate, patchy low-attenuation changes in the white matter, most suggestive of sequelae of chronic small vessel ischemic disease. The visualized paranasal sinuses are clear. Mastoid air cells are clear. Impression: No acute intracranial pathology. Electronically signed by Antonio Hanley 01-25-2025 2:45 PM Discharge Plan Visit Data Chief Complaint: Illness Stated Complaint: PNEUMONIA, BASELINE CONFUSED ED Provider: Martín Victor Discharge Problem: Aspiration pneumonia, Vascular dementia, Altered mental status Patient Disposition: Admitted As Inpatient Discharge Instructions Interventions: ED Discharge Assessment Last Done: 01/25/25 20:38 Discharge Problem: Aspiration pneumonia Qualifiers: Aspiration pneumonia type: unspecified Laterality: bilateral Lung location: l ower lobe of lung Qualified Code(s): J69.0 - Pneumonitis due to inhalation of food and vomit Vascular dementia Qualifiers: Dementia severity: unspecified severity Dementia behavioral or psychological symptom: unspecified whether behavioral, psychotic, or mood disturbance or anxiety Qualified Code(s): F01.50 - Vascular dementia, unspecified severity, without behavioral disturbance, psychotic disturbance, mood disturbance, and anxiety Altered mental status Qualifiers: Altered mental status type: unspecified Qualified Code(s): R41.82 - Altered mental status, unspecified
[2025-01-25 12:58] LABS: Thyroid Stimulating Hormone 1.2 uIu/ml (0.300-4.500)
[2025-01-25] MEDS: SODIUM CHLORIDE 0.9% 1,000 ML IV ONE (13:17)
[2025-01-25 13:19] LABS: Adenovirus PCR Not Detected (NotDetected); Bordetella parapertussis PCR Not Detected (NotDetected); Bordetella pertussis PCR Not Detected (NotDetected); Chlamydia pneumoniae PCR Not Detected (NotDetected); Coronavirus 229E PCR Not Detected (NotDetected); Coronavirus CoV-2 (COVID19)PCR Not Detected (NotDetected); Coronavirus HKU1 PCR Not Detected (NotDetected); Coronavirus NL63 PCR Not Detected (NotDetected); Coronavirus OC43PCR Not Detected (NotDetected); Human Metapneumovirus PCR Not Detected (NotDetected); Influenza A PCR Not Detected (NotDetected); Influenza B PCR Not Detected (NotDetected); Mycoplasma pneumoniae PCR Not Detected (NotDetected); Parainfluenza Virus 1 PCR Not Detected (NotDetected); Parainfluenza Virus 2 PCR Not Detected (NotDetected); Parainfluenza Virus 3 PCR Not Detected (NotDetected); Parainfluenza Virus 4 PCR Not Detected (NotDetected); Respiratory Syncytial VirusPCR Not Detected (NotDetected); Rhinovirus/Enterovirus PCR Not Detected (NotDetected)
[2025-01-25] MEDS: OPTIRAY 320 125ml IV ONE (13:32)
--- NOTE | 2025-01-25 13:37 | Electrocardiogram Report ---
Test Reason : Blood Pressure : */* mmHG Vent. Rate : 92 BPM Atrial Rate : 92 BPM P-R Int : 158 ms QRS Dur : 110 ms QT Int : 372 ms P-R-T Axes : 37 -53 64 degrees QTcB Int : 460 ms Normal sinus rhythm Left anterior fascicular block Left ventricular hypertrophy Nonspecific ST abnormality Abnormal ECG When compared with ECG of 11-Jan-2025 19:21, No significant change was found Confirmed by Jatinder Fleton ([id number]) on 01/25/2025 1:37:16 PM Referred By: Confirmed By: Jatinder Felton
[2025-01-25 13:46] LABS: Appearance Urine Clear (Clear); Bacteria Urine Automated None Seen (None Seen); Bilirubin Urine 1+ (Negative); Blood Urine 2+ (Negative); Cast Urine Automated 0-2 /lpf (0-2); Color Urine Dark Yellow; Epithelial Cell Urine Auto 0-2 /hpf (0-2); Glucose Urine UA 1+ (Negative); Ketones Urine Trace (Negative); Leukocyte Esterase Urine Trace (Negative); Nitrite Urine Negative (Negative); Protein Urine 3+ (Negative); RBC Urine Automated >20 /hpf (0-2); Specific Gravity Urine 1.037 (1.000-1.030); Urobilinogen Urine Negative (Negative); WBC Urine Automated 0-5 /hpf (0-5); pH Urine 5.5 (4.5-7.5)
[2025-01-25] MEDS: cefTRIAXone SODIUM 2,000 MG/50 ML BAG IV STA (14:03)
[2025-01-25] MEDS: PIPERACILLIN/TAZOBACTAM 4.5 GM/100 ML BAG IV ONE (14:44)
--- NOTE | 2025-01-25 14:46 | CT Scan Report ---
CT pulmonary angiogram with IV contrast History: Fever COMPARISON: None TECHNIQUE: CT angiography of the chest was performed without IV contrast followed by IV contrast, including 3D post processing CTA image reconstruction. Dose reduction techniques were achieved by using automatic exposure control and/or adjustment of mA and/or kV according to patient size and/or use of iterative reconstruction technique. FINDINGS: Diagnostic quality: Adequate There is no evidence for pulmonary embolism. The heart is not enlarged. There are heavy coronary calcifications. There is no pericardial effusion. There are no abnormally enlarged hilar or mediastinal lymph nodes. There is occlusion of the right bronchus intermedius, as well as the distal left lower lobe segmental bronchus. An area of ill-defined low-density material is seen within the medial right lower lobe, series 5 image 31, measuring 3.5 cm in diameter. Moderate right and mild left confluent lower lobe atelectasis. There is no pleural effusion. Inward bowing of the posterior membrane of the trachea with narrowing of the AP diameter, which may be seen with excessive dynamic airway collapse and tracheobronchomalacia, which could be further evaluated with pulmonology, if indicated. Limited visualized upper abdomen. No destructive osseous changes are seen. IMPRESSION: No evidence for pulmonary embolism. Occlusion of the right bronchus intermedius and distal left lower lobe segmental bronchus, resulting in postobstructive atelectasis. Additionally, there is an area of ill-defined low density material in the medial right lower lobe, concerning for aspiration pneumonia. Electronically signed by Antonio Hanley 01-25-2025 2:45 PM
--- NOTE | 2025-01-25 14:47 | CT Scan Report ---
CT head without contrast History: Weakness. Dementia Comparison: None Technique: Using multidetector thin collimation helical acquisition technique, axial, coronal and sagittal CT images from the skull base to the vertex were obtained without intravenous contrast. Dose reduction techniques were achieved by using automatic exposure control and/or adjustment of mA and/or kV according to patient size and/or use of iterative reconstruction technique. Findings: No intracranial hemorrhage, mass-effect, or midline shift. The ventricles are proportionate to the cerebral sulci. Small, chronic infarct in the high left frontal lobe, otherwise of the pérez to white matter differentiation of the cerebral hemispheres is preserved. The basal cisterns are patent. There is moderate cerebral atrophy. Moderate, patchy low-attenuation changes in the white matter, most suggestive of sequelae of chronic small vessel ischemic disease. The visualized paranasal sinuses are clear. Mastoid air cells are clear. Impression: No acute intracranial pathology. Electronically signed by Antonio Hanley 01-25-2025 2:45 PM
--- NOTE | 2025-01-25 14:47 | CT Scan Report ---
EXAMINATION: CT of the abdomen and pelvis performed after the administration of IV contrast TECHNIQUE: Helical CT images from the lung bases through the symphysis pubis were obtained with contrast. Coronal and sagittal reformatted images were generated at a workstation for further assessment. Dose reduction techniques were achieved by using automatic exposure control and/or adjustment of mA and/or kV according to patient size and/or use of iterative reconstruction technique. COMPARISON: None HISTORY: Weakness FINDINGS: Lower chest: No consolidation. No pleural effusion or pneumothorax. Liver: No suspicious liver lesions. Portal veins appear patent. Gallbladder: No gallstones. Spleen: Normal size. Pancreas: No suspicious pancreatic lesions. The pancreatic duct is not dilated. Adrenal glands: No adrenal nodules. Kidneys: No hydronephrosis or obstructing renal stones. Bladder / Pelvic organs: The prostate gland is enlarged. The urinary bladder is incompletely distended. Bowel: No bowel obstruction. There is an area of wall thickening and mucosal hyperenhancement involving the first and second portions of the duodenum. Edema of the wall and mild free fluid is seen to surround the region. The appendix is nonvisualized. A short segment of intussusception is seen within the small bowel jejunum in the left upper quadrant, series 9 image 140. No evidence for obstruction. Lymph nodes: No retroperitoneal, mesenteric, or pelvic lymphadenopathy. Peritoneum / Retroperitoneum: No ascites. No free air. Vessels: No infrarenal aortic aneurysm. Heavy calcified and noncalcified aortoiliac atherosclerosis. Bones and soft tissues: No suspicious lesion in the bones. IMPRESSION: Mild wall thickening, mucosal hyperenhancement, and surrounding free fluid about the duodenum, which may be seen with duodenitis. A short segment of intussusception, possibly transient, seen within the jejunum in the left upper quadrant. No associated obstruction. CT head without contrast History: Trauma Comparison: None Technique: Using multidetector thin collimation helical acquisition technique, axial, coronal and sagittal CT images from the skull base to the vertex were obtained without intravenous contrast. Dose reduction techniques were achieved by using automatic exposure control and/or adjustment of mA and/or kV according to patient size and/or use of iterative reconstruction technique. Findings: No intracranial hemorrhage, mass-effect, or midline shift. The ventricles are proportionate to the cerebral sulci. The pérez to white matter differentiation of the cerebral hemispheres is preserved. The basal cisterns are patent. The visualized paranasal sinuses are clear. Mastoid air cells are clear. Impression: No acute intracranial pathology. Electronically signed by Antonio Hanley 01-25-2025 2:45 PM
--- NOTE | 2025-01-25 15:34 | History & Physical Report ---
Date of Service January 25, 2025 Assessment & Plan (1) Aspiration pneumonia: (2) Altered mental status: Plan #AMS likely 2/2 aspiration pneumonia c/b post-obstructive atelectasis vs. duodenitis vs. UTI #NSTEMI likely type 2 2/2 to the above -vanc, cefepime -aspiration precautions -fluids -f/u blood cultures -not making sputum, no indication for culture, consider if worsening -pulm consult -formal swallow eval by speech before diet -trend trops to peak -STAT EKG for any chest pain #Recent history CVA, w/history of previous CVA -PT/OT -family does not want to go back to the same rehab, SW consult to evaluate options on this front #IDDM -home dose insulin -monitor for ISS/basal bolus need #Htn, HLD #MDD, vascular dementia #L carotid artery stenosis -home meds IVF, NPO until ST evaluation Antiplatelets as previously ordered GI ppx History of Present Illness Primary Care Provider: Gera Hanley, DO 79M pmh recent CVA, IDDM, L carotid artery stenosis, MDD, vascular dementia w/behavioral disturbances, additional previous CVA, htn, HLD who presents to the ED altered. Patient's history is given by who is at the bedside and provides history. Patient is AAOx0, responds to stimuli however. states that patient was d/c about 5d ago from here after a CVA and since he has been d/c to SNF/rehab he has been worsening day by day. States that he has been increasingly weak, confused since leaving the hospital and in the last few days has developed a nonproductive cough as well as worsening dysphagia. No known fever, chills, abdominal pain, urinary symptoms including discharge, frequency. Of note patient was d/c from here due to multiple infarcts on the R hemisphere and states that his mentation is at baseline limited, especially his memory, but this is worse than baseline. Allergies Allergy/AdvReac Type Severity Reaction Status Date / Time No Known Allergies Allergy Verified 01/09/25 14:31 Home Medications Medication Instructions Recorded Confirmed Type insulin aspart U-100 100 unit/mL 0 sliding scale dose subcut TIDM 07/06/20 01/09/25 History subcutaneous cartridge (Novolog PenFill U-100 Insulin aspart) insulin degludec 100 unit/mL (3 23 unit subcut HS 07/06/20 01/09/25 History mL) subcutaneous pen (Tresiba FlexTouch U-100 insulin) cholecalciferol (vitamin D3) 25 25 mcg PO DAILY 07/25/22 01/09/25 History mcg (1,000 unit) capsule (Vitamin D3) chromium picolinate 200 mcg tablet 200 mcg PO DAILY 07/25/22 01/09/25 History coenzyme Q10 100 mg capsule 100 mg PO DAILY 07/25/22 01/09/25 History (CoQ-10) folic acid 800 mcg tablet 800 mg PO DAILY 07/25/22 01/09/25 History magnesium 250 mg tablet 250 mg PO DAILY 07/25/22 01/09/25 History milk thistle 150 mg capsule 150 mg PO DAILY 07/25/22 01/09/25 History potassium gluconate 595 mg (99 mg) 99 mg PO DAILY 07/25/22 01/09/25 History tablet vitamin E 268 mg (400 unit) capsule 400 mg PO DAILY 07/25/22 01/09/25 History zinc gluconate 50 mg tablet 50 mg PO DAILY 07/25/22 01/09/25 History atorvastatin 80 mg tablet 80 mg PO DAILY #30 tabs 07/28/22 01/09/25 Rx aspirin 81 mg tablet,delayed 81 mg PO DAILY #30 tabs 01/20/25 Rx release (Ecotrin Low Strength) clopidogrel 75 mg tablet 75 mg PO DAILY #12 tabs 01/20/25 Rx Past Med/Surg History Problem List (Updated 01/25/25 @ 15:37 by Steve Munroe MD) Aspiration pneumonia Altered mental status Encounter for assessment of healthcare decision-making capacity Palliative care by specialist Acute right [employer] LEAD stroke Scalp laceration Frequent falls (Acute) Closed head injury (Acute) DM2 (diabetes mellitus, type 2) Vertebral artery occlusion HTN (hypertension) Carotid stenosis, symptomatic, with infarction Acute CVA (cerebrovascular accident) Memory impairment Transient cerebral ischemia (Acute) Blood glucose elevated (Acute) Medical History (Updated 01/25/25 @ 15:37 by Steve Munroe MD) H/O: CVA (cerebrovascular accident) Vascular dementia Stroke TIA (transient ischemic attack) Acute confusion Surgical History No pertinent past surgical history Family History Father , He in his 70s of an MS Primary Parkinson's disease Myocardial infarction Mother , age 101 No problems noted. 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 Beliefs That Will Affect Care: None Current Living Situation: Spouse Feels Safe at Home: Declines to Answer Assistive Devices: None Review of Systems Constitutional: no fever and no chills Respiratory: + cough; no chest congestion, no change in sputum and no dyspnea Gastrointestinal: no abdominal pain, no early satiety and no vomiting Genitourinary: no dysuria, no difficulty urinating, no urinary hesitancy or no urinary incontinence Physical Exam Constitutional: WD/WN, vitals as above Respiratory: Some crackles in the R middle and lower lobes Gastrointestinal (Abdomen): normal bowel sounds, soft, nontender, no hepatosplenomegaly Psychiatric: Orientation: + not oriented x 3 Results & Data Results & Data Vital Signs (Past 12 Hours) Vital Signs Temp Pulse Pulse Resp BP BP Pulse Ox 01/25/25 15:04 81 22 135/80 92 01/25/25 14:00 80 21 158/90 H 95 01/25/25 12:21 93 H 24 92 01/25/25 12:21 95 H 01/25/25 12:21 86 22 92 01/25/25 12:06 90 92 01/25/25 12:00 144/95 H 01/25/25 12:00 144/95 H 01/25/25 12:00 144/95 H 01/25/25 12:00 144/95 H 01/25/25 12:00 144/95 H 01/25/25 12:00 144/95 H 01/25/25 12:00 144/95 H 01/25/25 11:51 137/94 01/25/25 11:51 137/94 01/25/25 11:51 137/94 01/25/25 11:50 37.0 C 92 H 22 137/94 89 L O2 Del Method O2 Flow Rate 01/25/25 15:04 Nasal Cannula 2 01/25/25 14:00 Nasal Cannula 3 01/25/25 12:21 01/25/25 12:21 01/25/25 12:21 Nasal Cannula 3 01/25/25 12:06 01/25/25 12:00 01/25/25 12:00 01/25/25 12:00 01/25/25 12:00 01/25/25 12:00 01/25/25 12:00 01/25/25 12:00 01/25/25 11:51 01/25/25 11:51 01/25/25 11:51 01/25/25 11:50 Room Air Laboratory Results Abnormal lab results 01/25/25 01/25/25 01/25/25 Range/Units 11:55 13:15 13:53 RBC 4.63 L (4.70-6.10) M/uL [place] # (Auto) 1.21 H (0.11-0.59) K/uL BUN 26 H (6-23) mg/dl BUN/Creatinine Ratio 34.2 H (10-20) Glucose 198 H (70-99(Fasting)) mg/dl Total Bilirubin 1.1 H (0.2-1.0) mg/dl Troponin I High Sens 37.3 H 38.4 H (0-20) pg/ml Procalcitonin 1.00 H (0-0.5) ng/ml Ur Specific [place] 1.037 H (1.000-1.030) Urine Protein 3+ H (Negative) Urine Glucose (UA) 1+ H (Negative) Urine Ketones Trace H (Negative) Urine Blood 2+ H (Negative) Urine Bilirubin 1+ H (Negative) Ur Leukocyte Esterase Trace H (Negative) Urine RBC (Auto) >20 H (0-2) /hpf Diagnostic Findings Chest X-Ray 01/25/25 11:57 XR chest 1V portable HISTORY: 79 years-old Male Chest pain, nonspecific acute chest pain COMPARISON: 01/09/2025 TECHNIQUE: AP view of the chest FINDINGS: Cardiac silhouette is enlarged. Mild right hemidiaphragmatic elevation and linear subsegmental bibasilar atelectasis. No pneumothorax or overt pulmonary edema. Bones appear grossly intact. IMPRESSION: Cardiomegaly with mild bibasilar atelectasis. ACT 112: Negative or not required by law. The above report was generated using voice recognition software. It may contain grammatical, syntax or spelling errors. Electronically signed by: Luis Borja M.D. 01/25/2025 12:16 PM Abdomen/Pelvis CT 01/25/25 12:58 EXAMINATION: CT of the abdomen and pelvis performed after the administration of IV contrast TECHNIQUE: Helical CT images from the lung bases through the symphysis pubis were obtained with contrast. Coronal and sagittal reformatted images were generated at a workstation for further assessment. Dose reduction techniques were achieved by using automatic exposure control and/or adjustment of mA and/or kV according to patient size and/or use of iterative reconstruction technique. COMPARISON: None HISTORY: Weakness FINDINGS: Lower chest: No consolidation. No pleural effusion or pneumothorax. Liver: No suspicious liver lesions. Portal veins appear patent. Gallbladder: No gallstones. Spleen: Normal size. Pancreas: No suspicious pancreatic lesions. The pancreatic duct is not dilated. Adrenal glands: No adrenal nodules. Kidneys: No hydronephrosis or obstructing renal stones. Bladder / Pelvic organs: The prostate gland is enlarged. The urinary bladder is incompletely distended. Bowel: No bowel obstruction. There is an area of wall thickening and mucosal hyperenhancement involving the first and second portions of the duodenum. Edema of the wall and mild free fluid is seen to surround the region. The appendix is nonvisualized. A short segment of intussusception is seen within the small bowel jejunum in the left upper quadrant, series 9 image 140. No evidence for obstruction. Lymph nodes: No retroperitoneal, mesenteric, or pelvic lymphadenopathy. Peritoneum / Retroperitoneum: No ascites. No free air. Vessels: No infrarenal aortic aneurysm. Heavy calcified and noncalcified aortoiliac atherosclerosis. Bones and soft tissues: No suspicious lesion in the bones. IMPRESSION: Mild wall thickening, mucosal hyperenhancement, and surrounding free fluid about the duodenum, which may be seen with duodenitis. A short segment of intussusception, possibly transient, seen within the jejunum in the left upper quadrant. No associated obstruction. CT head without contrast History: Trauma Comparison: None Technique: Using multidetector thin collimation helical acquisition technique, axial, coronal and sagittal CT images from the skull base to the vertex were obtained without intravenous contrast. Dose reduction techniques were achieved by using automatic exposure control and/or adjustment of mA and/or kV according to patient size and/or use of iterative reconstruction technique. Findings: No intracranial hemorrhage, mass-effect, or midline shift. The ventricles are proportionate to the cerebral sulci. The pérez to white matter differentiation of the cerebral hemispheres is preserved. The basal cisterns are patent. The visualized paranasal sinuses are clear. Mastoid air cells are clear. Impression: No acute intracranial pathology. Electronically signed by Antonio Hanley 01-25-2025 2:45 PM Chest CTA 01/25/25 12:58 CT pulmonary angiogram with IV contrast History: Fever COMPARISON: None TECHNIQUE: CT angiography of the chest was performed without IV contrast followed by IV contrast, including 3D post processing CTA image reconstruction. Dose reduction techniques were achieved by using automatic exposure control and/or adjustment of mA and/or kV according to patient size and/or use of iterative reconstruction technique. FINDINGS: Diagnostic quality: Adequate There is no evidence for pulmonary embolism. The heart is not enlarged. There are heavy coronary calcifications. There is no pericardial effusion. There are no abnormally enlarged hilar or mediastinal lymph nodes. There is occlusion of the right bronchus intermedius, as well as the distal left lower lobe segmental bronchus. An area of ill-defined low-density material is seen within the medial right lower lobe, series 5 image 31, measuring 3.5 cm in diameter. Moderate right and mild left confluent lower lobe atelectasis. There is no pleural effusion. Inward bowing of the posterior membrane of the trachea with narrowing of the AP diameter, which may be seen with excessive dynamic airway collapse and tracheobronchomalacia, which could be further evaluated with pulmonology, if indicated. Limited visualized upper abdomen. No destructive osseous changes are seen. IMPRESSION: No evidence for pulmonary embolism. Occlusion of the right bronchus intermedius and distal left lower lobe segmental bronchus, resulting in postobstructive atelectasis. Additionally, there is an area of ill-defined low density material in the medial right lower lobe, concerning for aspiration pneumonia. Electronically signed by Antonio Hanley 01-25-2025 2:[address] 01/25/25 13:01 CT head without contrast History: Weakness. Dementia Comparison: None Technique: Using multidetector thin collimation helical acquisition technique, axial, coronal and sagittal CT images from the skull base to the vertex were obtained without intravenous contrast. Dose reduction techniques were achieved by using automatic exposure control and/or adjustment of mA and/or kV according to patient size and/or use of iterative reconstruction technique. Findings: No intracranial hemorrhage, mass-effect, or midline shift. The ventricles are proportionate to the cerebral sulci. Small, chronic infarct in the high left frontal lobe, otherwise of the pérez to white matter differentiation of the cerebral hemispheres is preserved. The basal cisterns are patent. There is moderate cerebral atrophy. Moderate, patchy low-attenuation changes in the white matter, most suggestive of sequelae of chronic small vessel ischemic disease. The visualized paranasal sinuses are clear. Mastoid air cells are clear. Impression: No acute intracranial pathology. Electronically signed by Antonio Hanley 01-25-2025 2:45 PM
[2025-01-25] MEDS ORDERED: ACETAMINOPHEN 325 MG TAB PO PRN (15:44)
[2025-01-25] MEDS ORDERED: ONDANSETRON INJ 2 MG/ML 2 ML VIAL IV PRN (15:44)
[2025-01-25] MEDS ORDERED: VANCOMYCIN CONSULT ACTIVE PRN (15:51)
[2025-01-25] MEDS ORDERED: GLUCOSE 10 TAB/TUBE PO PRN (15:54)
[2025-01-25] MEDS ORDERED: DEXTROSE 50% 50 ML SYRINGE IV PRN (15:54)
[2025-01-25] MEDS ORDERED: GLUCAGON FOR INJ 1 MG VIAL SQ PRN (15:54)
[2025-01-25] MEDS ORDERED: GLUCOSE 40% GEL 15 GM TUBE PO PRN (15:54)
[2025-01-25] MEDS ORDERED: PHARMACY GLYCEMIC MGMT CONSULT PRN (15:54)
[2025-01-25] MEDS ORDERED: CARBOHYDRATES FOR HYPOGLYCEMIA PO PRN (15:54)
[2025-01-25] MEDS ORDERED: CEFEPIME 2000MG 2,000 MG/20 ML SYR IV STA (15:56)
[2025-01-25] MEDS: VANCOMYCIN HCL 1,750 MG in SODIUM CHLORIDE 0.9% 500 ML IV STA (16:38)
[2025-01-25] MEDS: D5W AND 1/2NSS 1,000 ML IV SCH (16:39)
[2025-01-25] MEDS ORDERED: LANTUS PER UNIT CHARGE SQ SCH (21:00)
[2025-01-25] MEDS: INSULIN ASPART PER UNIT CHARGE SC SCH (21:04)
[2025-01-25] MEDS: LANTUS PER UNIT CHARGE SQ SCH (21:05)
[2025-01-25] MEDS: CEFEPIME 2000MG 2,000 MG/20 ML SYR IV SCH (22:31)
[2025-01-25] MEDS: VANCOMYCIN HCL 1,000 MG/270 ML BAG IV SCH (22:31)
[2025-01-25] MEDS: LACTATED RINGER'S 1,000 ML IV ONE (23:30)
[2025-01-26] MEDS: POTASSIUM CHLORIDE / WTR 10 MEQ/100 ML PLCT IV SCH (05:15)
[2025-01-26] MEDS: METOPROLOL TARTRATE 1 MG/ML VIAL IV STA (05:23)
[2025-01-26 07:38] LABS: Hematocrit (blood only) 40.8 % (42.0-52.0); Hemoglobin 13.5 g/dl (14.0-18.0); Mean Corpuscular Hgb Conc 33.1 g/dL (32.0-36.0); Mean Corpuscular Volume 93.8 fL (80.0-100.0); Mean Platelet Volume 9.4 fL (9.4-12.4); Platelet Count 273 K/uL (130-400); RDW Coefficient of Variation 13.1 % (11.5-14.5); RDW Standard Deviation 45.1 fL (36.4-46.3); Red Blood Count 4.35 M/uL (4.70-6.10); White Blood Count 11.65 K/ul (4.8-10.8)
[2025-01-26 08:08] LABS: Albumin Level 3.4 gm/dl (3.4-5.0); BUN Creatinine Ratio 29.1 (10-20); Bilirubin,Total 0.8 mg/dl (0.2-1.0); Creatinine Clr Calc Pharmacy 83.4 ml/min; Globulin 3.4 gm/dl (2.5-4.0); Potassium 3.3 mmol/L (3.5-5.1); Total Protein 6.8 gm/dl (6.0-8.3)
[2025-01-26 08:12] LABS: Basophils # (auto) 0.04 K/uL (0.00-0.20); Basophils % (auto) 0.3 %; Eosinophils # (auto) 0.02 K/uL (0.00-0.50); Eosinophils % (auto) 0.2 %; Immature Granulocytes # (auto) 0.07 K/uL (0.01-0.20); Immature Granulocytes % (auto) 0.6 %; Lymphocytes # (auto) 1.36 K/uL (1.20-3.40); Lymphocytes % (auto) 11.7 %; Monocytes # (auto) 1.23 K/uL (0.11-0.59); Monocytes % (auto) 10.6 %; Neutrophils # (auto) 8.93 K/uL (1.40-6.50); Neutrophils % (auto) 76.6 %
[2025-01-26 08:30] LABS: Estimated Average Glucose 177 mg/dl; Hemoglobin A1C 7.8 % (4.5-5.6)
[2025-01-26] MEDS ORDERED: NON-FORMULARY MEDICATION (Chromium Picolinate 200 mcg Tablet) PO SCH (09:00)
[2025-01-26] MEDS ORDERED: MILK THISTLE 150 MG PO SCH (09:00)
[2025-01-26] MEDS ORDERED: NON-FORMULARY MEDICATION (Potassium Gluconate 595 mg (99 mg) Tablet) PO SCH (09:00)
[2025-01-26] MEDS ORDERED: PANTOprazole 40 MG/10 ML SYR IV SCH (09:00)
[2025-01-26] MEDS ORDERED: NON-FORMULARY MEDICATION (Coenzyme Q10 [Coq-10] 100 mg Capsule) PO SCH (09:00)
[2025-01-26] MEDS: PANTOprazole 40 MG/10 ML SYR IV SCH (09:01)
--- NOTE | 2025-01-26 09:27 | Pulmonary Consultation ---
Date of Consultation January 26, 2025 Assessment & Plan (1) Aspiration pneumonia: (2) Abnormal CT scan of lung: Plan Impression: 79-year-old male with history of vascular dementia and new multifocal strokes admitted with progressive confusion lethargy and CT scan showing some mucoid impaction of the lower lobes possibly consistent with aspiration. Recommendation: 1. Unfortunately this appears to be progression of the patient's underlying neurological disorders. No role for bronchoscopy currently as that would be a short-term solution with mucoid impaction likely to recur in the absence of ineffectual cough. Could try flutter valve, incentive spirometry, and potentially hypertonic saline although again if the patient's cough is too weak to clear phlegm, none of these interventions are going to be ultimately successful. Long-term management may involve tracheostomy although that appears to be well outside the expressed wishes for this patient and family moving forward. 2. Seems reasonable to complete course of antibiotics. Given his recent hospitalization, therapy with cefepime and vancomycin appears reasonable. Will check MRSA swab and if negative, vancomycin can be discontinued History of Present Illness Attending Physician: Luis Carlos Quiroz MD History of Present Illness Asked by hospitalist to assist in evaluation management of this patient with an abnormal CT scan. History is obtained from discussion with the patient although somewhat limited due to his confusion. History is also obtained from review the electronic medical record. The patient is a 79-year-old male who was recently dismissed from the hospital after suffering a stroke. He also has vascular dementia. He was in a halfway after his stroke and developed progressive confusion with weakness. He is also had a nonproductive cough and dysphagia. He was brought to the emergency room. In the emergency room he was evaluated with a CT scan which showed some mucoid plugging in the distal lower lobe bronchi with some associated atelectasis/infiltrate. He was initiated on vancomycin and cefepime. Speech evaluation was requested. On my assessment the patient appears to be sleeping but is able to answer questions. He denies any chest pain, shortness of breath, or respiratory difficulty. His cough is extraordinarily weak and inefficient. Allergies Allergy/AdvReac Type Severity Reaction Status Date / Time No Known Allergies Allergy Verified 01/09/25 14:31 Home Medications Medication Instructions Recorded Confirmed Type insulin aspart U-100 100 unit/mL 0 - 12 sliding scale dose subcut 07/06/20 01/25/25 History subcutaneous cartridge (Novolog TIDM PenFill U-100 Insulin aspart) insulin degludec 100 unit/mL (3 23 unit subcut HS 07/06/20 01/25/25 History mL) subcutaneous pen (Tresiba FlexTouch U-100 insulin) cholecalciferol (vitamin D3) 25 25 mcg PO DAILY 07/25/22 01/25/25 History mcg (1,000 unit) capsule (Vitamin D3) coenzyme Q10 100 mg capsule 100 mg PO DAILY 07/25/22 01/25/25 History (CoQ-10) folic acid 800 mcg tablet 800 mg PO DAILY 07/25/22 01/25/25 History magnesium 250 mg tablet 250 mg PO DAILY 07/25/22 01/25/25 History potassium gluconate 595 mg (99 mg) 99 mg PO DAILY 07/25/22 01/25/25 History tablet zinc gluconate 50 mg tablet 50 mg PO DAILY 07/25/22 01/25/25 History atorvastatin 80 mg tablet 80 mg PO DAILY #30 tabs 07/28/22 01/25/25 Rx aspirin 81 mg tablet,delayed 81 mg PO DAILY #30 tabs 01/20/25 01/25/25 Rx release (Ecotrin Low Strength) clopidogrel 75 mg tablet 75 mg PO DAILY #12 tabs 01/20/25 01/25/25 Rx acetaminophen 325 mg tablet 650 mg PO Q6H PRN Mild Pain (Scale 01/25/25 01/25/25 History Score 1-3) acetaminophen 325 mg tablet 650 mg PO Q4H PRN Fever 01/25/25 01/25/25 History (Tylenol) acetaminophen 650 mg rectal 650 mg TX Q4H PRN Fever 01/25/25 01/25/25 History suppository bisacodyl 10 mg rectal suppository 10 mg TX DAILY PRN Constipation 01/25/25 01/25/25 History (Dulcolax (bisacodyl)) magnesium hydroxide 400 mg/5 mL 2,400 mg PO DAILY PRN Constipation 01/25/25 01/25/25 History oral suspension (Milk of Magnesia) sodium phosphates 19 gram-7 118 ml TX DAILY PRN Constipation 01/25/25 01/25/25 History gram/118 mL enema (Fleet Enema) Patient History Medical History H/O: CVA (cerebrovascular accident) Vascular dementia Stroke TIA (transient ischemic attack) Acute confusion Surgical History No pertinent past surgical history Family History Father , He in his 70s of an [place] Primary Parkinson's disease Myocardial infarction Mother , age 101 No problems noted. Social History Smoking Status: Unknown if ever smoked Tobacco Type: Cigarettes Cigarettes Per Day: Pt unable to answer; Do You Dip or Chew Tobacco: No; Tobacco Cessation Education Requested by Patient: No Hx Alcohol Use: No Hx Substance Use: No Preferred Language: Romanian Communication Ability: Effective Embroidery Designer Required: No Beliefs That Will Affect Care: None Current Living Situation: Rehab Other Information That Helps Us Care for You: No Feels Safe at Home: Declines to Answer Assistive Devices: None Review of Systems Review of Systems: Please refer to admission H&P. No additions or deletions Physical Exam Constitutional: well developed, well nourished, + ill appearing and + lethargic; no acute distress pt drowsy, arousable ENMT: external ear and nose normal, oropharynx normal Neck: trachea midline, no thyromegaly Respiratory: normal respiratory effort, lungs clear to auscultation shallow respirations. Ineffectual cough Cardiovascular: RRR, no murmur, no edema Gastrointestinal (Abdomen): normal bowel sounds, soft, nontender, no hepatosplenomegaly Skin: no rashes, warm and dry Neurologic: + confused Results & Data Results & Data Vital Signs (Past 12 Hours) Vital Signs Temp Pulse Pulse Resp BP BP Pulse Ox 01/26/25 07:43 36.9 C 80 18 157/88 H 93 01/26/25 05:38 83 168/79 H 01/26/25 03:33 36.4 C L 85 20 163/94 H 93 01/25/25 23:02 36.7 C 83 20 178/94 H 93 O2 Del Method O2 Flow Rate 01/26/25 07:43 Nasal Cannula 2 01/26/25 05:38 01/26/25 03:33 Nasal Cannula 01/25/25 23:02 Nasal Cannula Critical Care Results & Data Vital Signs (Past 12 Hours) Vital Signs Temp Pulse Pulse Resp BP BP Pulse Ox 01/26/25 07:43 36.9 C 80 18 157/88 H 93 01/26/25 05:38 83 168/79 H 01/26/25 03:33 36.4 C L 85 20 163/94 H 93 01/25/25 23:02 36.7 C 83 20 178/94 H 93 O2 Del Method O2 Flow Rate 01/26/25 07:43 Nasal Cannula 2 01/26/25 05:38 01/26/25 03:33 Nasal Cannula 01/25/25 23:02 Nasal Cannula Lab & Micro Results (Past 24 Hours) RBC 4.35 M/uL (4.70-6.10) L 01/26/25 WBC 11.65 K/ul (4.8-10.8) H 01/26/25 Hgb 13.5 g/dl (14.0-18.0) L 01/26/25 Hct 40.8 % (42.0-52.0) L 01/26/25 MCV 93.8 fL (80.0-100.0) 01/26/25 MCH 31.0 pg (25.0-34.0) 01/26/25 MCHC 33.1 g/dL (32.0-36.0) 01/26/25 RDW Standard Deviation 45.1 fL (36.4-46.3) 01/26/25 RDW Coefficient of Variation 13.1 % (11.5-14.5) 01/26/25 Plt Count 273 K/uL (130-400) 01/26/25 MPV 9.4 fL (9.4-12.4) 01/26/25 Neutrophils (%) (Auto) 76.6 % 01/26/25 Lymphocytes (%) (Auto) 11.7 % 01/26/25 Monocytes # (Auto) 1.23 K/uL (0.11-0.59) H 01/26/25 Eosinophils # (Auto) 0.02 K/uL (0.00-0.50) 01/26/25 Immature Granulocyte % (Auto) 0.6 % 01/26/25 Neutrophils # (Auto) 8.93 K/uL (1.40-6.50) H 01/26/25 Lymphocytes # (Auto) 1.36 K/uL (1.20-3.40) 01/26/25 Monocytes # (Auto) 1.23 K/uL (0.11-0.59) H 01/26/25 Eosinophils # (Auto) 0.02 K/uL (0.00-0.50) 01/26/25 Basophils # (Auto) 0.04 K/uL (0.00-0.20) 01/26/25 Immature Granulocyte # (Auto) 0.07 K/uL (0.01-0.20) 5 Toxic Vacuolation 1+ 01/25/25 Na 145 mmol/L (136-145) 01/26/25 K 3.3 mmol/L (3.5-5.1) L 01/26/25 Cl 111 mmol/L (98-107) H 01/26/25 CO2 28 mmol/L (21-32) 01/26/25 Anion Gap 6 (3-11) 01/26/25 BUN 23 mg/dl (6-23) 01/26/25 Creatinine 0.79 mg/dl (0.6-1.4) 01/26/25 BUN/Creatinine Ratio 29.1 (10-20) H 01/26/25 Glu 106 mg/dl (70-99(Fasting)) H 01/26/25 Ca 9.0 mg/dl (8.6-10.3) 01/26/25 Phosphorus Level 2.8 mg/dl (2.5-4.9) 01/25/25 Total Bilirubin 0.8 mg/dl (0.2-1.0) 01/26/25 AST 73 U/L (13-39) H 01/26/25 ALT 50 U/L (7-52) 01/26/25 Alkaline Phosphatase 76 U/L (34-104) 01/26/25 TP 6.8 gm/dl (6.0-8.3) 01/26/25 Albumin 3.4 gm/dl (3.4-5.0) 01/26/25 Globulin 3.4 gm/dl (2.5-4.0) 01/26/25 Albumin/Globulin Ratio 1.0 (0.9-2) 01/26/25 Mg 2.1 mg/dl (1.7-2.4) 01/25/25 11:55 Calcium Level 9.0 mg/dl (8.6-10.3) 01/26/25 06:57 Prothromb Time International Ratio 1.0 (0.9-1.1) 01/25/25 11:5 5 Diagnostic Findings (Past 24 Hours) Chest X-Ray 01/25/25 11:57 XR chest 1V portable HISTORY: 79 years-old Male Chest pain, nonspecific acute chest pain COMPARISON: 01/09/2025 TECHNIQUE: AP view of the chest FINDINGS: Cardiac silhouette is enlarged. Mild right hemidiaphragmatic elevation and linear subsegmental bibasilar atelectasis. No pneumothorax or overt pulmonary edema. Bones appear grossly intact. IMPRESSION: Cardiomegaly with mild bibasilar atelectasis. ACT 112: Negative or not required by law. The above report was generated using voice recognition software. It may contain grammatical, syntax or spelling errors. Electronically signed by: Luis Borja M.D. 01/25/2025 12:16 PM Abdomen/Pelvis CT 01/25/25 12:58 EXAMINATION: CT of the abdomen and pelvis performed after the administration of IV contrast TECHNIQUE: Helical CT images from the lung bases through the symphysis pubis were obtained with contrast. Coronal and sagittal reformatted images were generated at a workstation for further assessment. Dose reduction techniques were achieved by using automatic exposure control and/or adjustment of mA and/or kV according to patient size and/or use of iterative reconstruction technique. COMPARISON: None HISTORY: Weakness FINDINGS: Lower chest: No consolidation. No pleural effusion or pneumothorax. Liver: No suspicious liver lesions. Portal veins appear patent. Gallbladder: No gallstones. Spleen: Normal size. Pancreas: No suspicious pancreatic lesions. The pancreatic duct is not dilated. Adrenal glands: No adrenal nodules. Kidneys: No hydronephrosis or obstructing renal stones. Bladder / Pelvic organs: The prostate gland is enlarged. The urinary bladder is incompletely distended. Bowel: No bowel obstruction. There is an area of wall thickening and mucosal hyperenhancement involving the first and second portions of the duodenum. Edema of the wall and mild free fluid is seen to surround the region. The appendix is nonvisualized. A short segment of intussusception is seen within the small bowel jejunum in the left upper quadrant, series 9 image 140. No evidence for obstruction. Lymph nodes: No retroperitoneal, mesenteric, or pelvic lymphadenopathy. Peritoneum / Retroperitoneum: No ascites. No free air. Vessels: No infrarenal aortic aneurysm. Heavy calcified and noncalcified aortoiliac atherosclerosis. Bones and soft tissues: No suspicious lesion in the bones. IMPRESSION: Mild wall thickening, mucosal hyperenhancement, and surrounding free fluid about the duodenum, which may be seen with duodenitis. A short segment of intussusception, possibly transient, seen within the jejunum in the left upper quadrant. No associated obstruction. CT head without contrast History: Trauma Comparison: None Technique: Using multidetector thin collimation helical acquisition technique, axial, coronal and sagittal CT images from the skull base to the vertex were obtained without intravenous contrast. Dose reduction techniques were achieved by using automatic exposure control and/or adjustment of mA and/or kV according to patient size and/or use of iterative reconstruction technique. Findings: No intracranial hemorrhage, mass-effect, or midline shift. The ventricles are proportionate to the cerebral sulci. The pérez to white matter differentiation of the cerebral hemispheres is preserved. The basal cisterns are patent. The visualized paranasal sinuses are clear. Mastoid air cells are clear. Impression: No acute intracranial pathology. Electronically signed by Antonio Hanley 01-25-2025 2:45 PM Chest CTA 01/25/25 12:58 CT pulmonary angiogram with IV contrast History: Fever COMPARISON: None TECHNIQUE: CT angiography of the chest was performed without IV contrast followed by IV contrast, including 3D post processing CTA image reconstruction. Dose reduction techniques were achieved by using automatic exposure control and/or adjustment of mA and/or kV according to patient size and/or use of iterative reconstruction technique. FINDINGS: Diagnostic quality: Adequate There is no evidence for pulmonary embolism. The heart is not enlarged. There are heavy coronary calcifications. There is no pericardial effusion. There are no abnormally enlarged hilar or mediastinal lymph nodes. There is occlusion of the right bronchus intermedius, as well as the distal left lower lobe segmental bronchus. An area of ill-defined low-density material is seen within the medial right lower lobe, series 5 image 31, measuring 3.5 cm in diameter. Moderate right and mild left confluent lower lobe atelectasis. There is no pleural effusion. Inward bowing of the posterior membrane of the trachea with narrowing of the AP diameter, which may be seen with excessive dynamic airway collapse and tracheobronchomalacia, which could be further evaluated with pulmonology, if indicated. Limited visualized upper abdomen. No destructive osseous changes are seen. IMPRESSION: No evidence for pulmonary embolism. Occlusion of the right bronchus intermedius and distal left lower lobe segmental bronchus, resulting in postobstructive atelectasis. Additionally, there is an area of ill-defined low density material in the medial right lower lobe, concerning for aspiration pneumonia. Electronically signed by Antonio Hanley 01-25-2025 2:[address] 01/25/25 13:01 CT head without contrast History: Weakness. Dementia Comparison: None Technique: Using multidetector thin collimation helical acquisition technique, axial, coronal and sagittal CT images from the skull base to the vertex were obtained without intravenous contrast. Dose reduction techniques were achieved by using automatic exposure control and/or adjustment of mA and/or kV according to patient size and/or use of iterative reconstruction technique. Findings: No intracranial hemorrhage, mass-effect, or midline shift. The ventricles are proportionate to the cerebral sulci. Small, chronic infarct in the high left frontal lobe, otherwise of the pérez to white matter differentiation of the cerebral hemispheres is preserved. The basal cisterns are patent. There is moderate cerebral atrophy. Moderate, patchy low-attenuation changes in the white matter, most suggestive of sequelae of chronic small vessel ischemic disease. The visualized paranasal sinuses are clear. Mastoid air cells are clear. Impression: No acute intracranial pathology. Electronically signed by Antonio Hanley 01-25-2025 2:45 PM I & O Totals 24 Hours 01/25/25 01/26/25 01/27/25 06:59 06:59 06:59 Intake Total 2564.333 / 2564.333 275.000 / 275.000 Balance 2564.333 / 2564.333 275.000 / 275.000 Cumulative 01/25/25 11:38 thru 01/26/25 09:13 Intake Total 2839.333 Balance 2839.333 RT Ventilator Mngmt (Last Documented) Ventilator Ordered Settings Respiratory Rate 18 01/26/25 07:43 Ventilator - PT Measurements Respiratory Rate 18 PG Care Time/CCT Total # of Minutes Spent Total Time Spent with Patient: Total time spent is greater than 50% in coordination of care (as documented) at patient's floor/unit and/or counseling patient: Coding Level of Care Code 72519 INT INP/OBS CARE MIN Diagnoses Aspiration pneumonia J69.[address] scan of lung R91.8
[2025-01-26] MEDS: FOLIC ACID 400 MCG TAB PO SCH (10:07)
[2025-01-26] MEDS: ADVANCED PROBIOTIC 625 MG CAPSULE PO SCH (10:07)
[2025-01-26] MEDS: TOCOPHERYL, DL-ALPHA 100 UNITS 45 MG CAP PO SCH (10:08)
[2025-01-26] MEDS: ASPIRIN 81 MG ECTAB PO SCH (10:08)
[2025-01-26] MEDS: MAGNESIUM OXIDE 400 MG TAB PO SCH (10:08)
[2025-01-26] MEDS: CLOPIDOGREL BISULFATE 75 MG TAB PO SCH (10:08)
[2025-01-26] MEDS: CHOLECALCIFEROL 25 MCG (1000 UNITS) TAB PO SCH (10:09)
[2025-01-26] MEDS: ZINC SULFATE 220 MG CAPSULE PO SCH (10:09)
[2025-01-26] MEDS: ATORVASTATIN 40 MG TAB PO SCH (10:09)
[2025-01-26] MEDS ORDERED: Nursing to Pharmacy Communication SCH ×2 (10:30→18:30)
[2025-01-26] MEDS: INSULIN ASPART PER UNIT CHARGE SC SCH (12:05)
--- NOTE | 2025-01-26 13:46 | Pharmacy Report ---
Pharmacy Glycemic Short Note 2 - Date of Service January 26, 2025 - Glycemic Short BSG Results (Last 24 hours): 01/25/25 01/26/25 01/26/25 19:57 00:06 05:48 Glucose POC Glucose 197 H 171 H 117 H 01/26/25 01/26/25 06:57 11:29 Glucose 106 H POC Glucose 151 H OUTPATIENT ANTIDIABETIC REGIMEN: * Tresiba 23 units SC HS * Novolog AC (0-12 units) per sliding scale HbA1c: 7.3% (01/12/25) ASSESSMENT: * MS is a 79 year old male admitted with altered mental status likely secondary to aspiration pneumonia, duodenitis, or UTI (patient does have history of vascular dementia). Patient recently discharged to SNF from [facility] on 01/20/25 following CVA * Originally NPO, but now ordered T2DM diet * Blood sugars reasonable thus far and will maintain current insulin regimen w/ basal scale this evening * Vancomycin discontinued due to negative MRSA nasal swab * Patient has history of recurrent falls, will utilize higher goal range to minimize risk of hypoglycemia PLAN FOR INPATIENT GLYCEMIC CONTROL: * Hold outpatient oral diabetes medications * Basal insulin * Lantus 5-10-15 units SC HS (see EHR for details) * Bolus insulin * NovoLog per scale ACHS or Q6hrs while NPO * Goal Range: Low 120 mg/dL - High 160 mg/dL * Correction Factor: 30 mg/dL/unit * Nutritional / Prandial insulin per carb ratio of 1 unit per 10 grams CHO consumed
--- NOTE | 2025-01-26 17:16 | Hospitalist Progress Note ---
Date of Service January 26, 2025 Assessment & Plan (1) Aspiration pneumonia: (2) Altered mental status: Plan #AMS likely 2/2 aspiration pneumonia c/b post-obstructive atelectasis vs. duodenitis vs. UTI #NSTEMI likely type 2 2/2 to the above -vanc, cefepime -aspiration precautions -fluids -f/u blood cultures -not making sputum, no indication for culture, consider if worsening -pulm consult -formal swallow eval by speech before diet -trend trops to peak -STAT EKG for any chest pain 01/26 Remains on 2 L of O2 Afebrile Blood cultures: Pending Sputum culture: Pending Nasal MRSA swab: Negative BioFire: Negative continue IVcefepime continue incentive spirometry, flutter valve Pulm consulted, does not recommend bronchoscopy at this point speech therapist consulted Advance to soft diet Plan for video swallow on Sunday #Recent history CVA, w/history of previous CVA -PT/OT -family does not want to go back to the same rehab, SW consult to evaluate options on this front #IDDM -home dose insulin -monitor for ISS/basal bolus need #Htn, HLD #MDD, vascular dementia #L carotid artery stenosis -home meds DVT prophylaxis Lovenox Disposition Pending Admission and Anticipated Discharge Date Admission Date: January 25, 2025 Subjective follow-up for pneumonia, etc. Seen sitting up in bed, comfortable, on 2 L of O2 Patient's eyes were closed but mostly answering questions States he feels okay overall No shortness of breath, no cough No chest pain denies abdominal pain, nausea vomiting No other new symptoms Review of Systems Review of Systems: all noted and negative except for above Physical Exam Physical Exam: General- oriented x 1, not in distress, speaks in sentences with no effort or accessory muscle use Eyes- anicteric Neck- no JVD Lungs- mild crackles right base, clear on the left Heart- normal rate, regular rhythm; no murmurs Abdomen- normal bowel sounds, nondistended, soft, no tenderness Extremities- no pretibial edema, no calf tenderness Neuro- alert, oriented x1; no gross focal neurologic deficits Skin- warm & dry Results & Data Results & Data Vital Signs (Past 12 Hours) Vital Signs Temp Pulse Pulse Resp BP BP Pulse Ox 01/26/25 15:51 37.2 C 77 18 152/81 H 93 01/26/25 14:00 86 01/26/25 10:48 36.9 C 80 18 143/88 H 94 01/26/25 10:00 74 01/26/25 10:00 01/26/25 07:43 36.9 C 80 18 157/88 H 93 01/26/25 05:38 83 168/79 H O2 Del Method O2 Flow Rate 01/26/25 15:51 Nasal Cannula 2 01/26/25 14:00 01/26/25 10:48 Nasal Cannula 2 01/26/25 10:00 01/26/25 10:00 Nasal Cannula 2 01/26/25 07:43 Nasal Cannula 2 01/26/25 05:38 all noted and reviewed including below (2) Altered mental status Altered mental status type: unspecified Qualified Code(s): R41.82 - Altered mental status, unspecified
[2025-01-26] MEDS: ENOXAPARIN INJ 40 MG/0.4 ML SYR SQ SCH (17:47)
[2025-01-26] MEDS: LACTATED RINGER'S 1,000 ML IV ONE (18:45)
[2025-01-26] MEDS: LANTUS PER UNIT CHARGE SC SCH (22:23)
--- NOTE | 2025-01-26 22:59 | Communication Note ---
Date of Service: January 26, 2025 Made aware by RN of uncontrolled blood pressure. SBP 1 50-1 80s the last 24 hours. Patient asymptomatic as per RN. AP Hypertensive urgency Initiate lisinopril Lopressor 2.5 mg IV every 6 hours [id number] if patient unable to swallow pills safely. Will relay to AM provider.
[2025-01-26] MEDS: lisinopril 2.5 MG TAB PO SCH (23:55)
[2025-01-27] MEDS: METOPROLOL TARTRATE 1 MG/ML VIAL IV STA ×2 (01:02→03:41)
--- NOTE | 2025-01-27 08:54 | Pulmonology Progress Note ---
Date of Service January 27, 2025 Assessment & Plan (1) Aspiration pneumonia: (2) Abnormal CT scan of lung: Plan Impression: 79-year-old male with history of vascular dementia and new multifocal strokes admitted with progressive confusion lethargy and CT scan showing some mucoid impaction of the lower lobes possibly consistent with aspiration. Recommendation: 1. Unfortunately this appears to be progression of the patient's underlying neurological disorders. Ultimately resolution of his mucoid impaction will require more effective cough. Continue pulmonary toilet regimen. No indication for invasive procedures currently. Out of bed to chair as tolerated would be appropriate. 2. Seems reasonable to complete course of antibiotics. Given his recent hospitalization, therapy with cefepime is reasonable. 3 days should be adequate empiric therapy. MRSA swabs negative. Discontinue vancomycin. Patient's on room air and in no respiratory distress and denies any respiratory complaints currently. Not much else to offer from an inpatient pulmonary standpoint. Pulmonary will sign off. Feel free to contact us with questions or concerns Admission and Anticipated Discharge Date Admission Date: January 25, 2025 Subjective Patient seen and examined. EMR reviewed. Discussed with his bedside nurse According to the nurse his mental status is improving. He was able to eat his breakfast this morning. He has been more interactive. He is attempting to perform pulmonary toilet but his cough remains weak and ineffectual. He is on room air. The patient himself offers no pulmonary complaints and states he feels "peachy". Review of Systems 2 Review of Systems: All systems reviewed & are unremarkable except as noted in Subjective Physical Exam 2 Constitutional: well developed, well nourished, + ill appearing and + lethargic; no acute distress ENMT: external ear and nose normal, oropharynx normal Neck: trachea midline, no thyromegaly Respiratory: normal respiratory effort, lungs clear to auscultation Cardiovascular: RRR, no murmur, no edema Gastrointestinal (Abdomen): normal bowel sounds, soft, nontender, no hepatosplenomegaly Skin: no rashes, warm and dry Neurologic: + confused Results & Data Results & Data Vital Signs (Past 12 Hours) Vital Signs Temp Pulse Pulse Resp BP BP Pulse Ox 01/27/25 08:08 36.7 C 86 18 119/70 94 01/27/25 03:56 69 147/79 H 01/27/25 03:00 36.5 C 75 20 186/111 H 93 01/27/25 01:17 76 157/79 H 01/26/25 22:57 36.3 C L 62 18 184/102 H 94 01/26/25 21:00 70 01/26/25 21:00 O2 Del Method 01/27/25 08:08 Room Air 01/27/25 03:56 01/27/25 03:00 Nasal Cannula 01/27/25 01:17 01/26/25 22:57 Nasal Cannula 01/26/25 21:00 01/26/25 21:00 Room Air Laboratory Results 01/26/25 06:57 01/26/25 06:57 Diagnostic Findings No new imaging PG Care Time/CCT Total # of Minutes Spent Total Time Spent with Patient: Total time spent is greater than 50% in coordination of care (as documented) at patient's floor/unit and/or counseling patient: Coding Level of Care Code 11028 SUB INP/OBS CARE 2/35MIN Diagnoses Aspiration pneumonia J69.[address] scan of lung R91.8
[2025-01-27] MEDS: SODIUM CHLOR 7% 4 ML NEB NEB SCH (10:30)
--- NOTE | 2025-01-27 10:59 | XRay Report ---
XR elbow LT min 3V routine CLINICAL HISTORY: fall,r/o fracture COMPARISON: None FINDINGS: Alignment of the left elbow is anatomic. There is no evidence for a joint effusion. No acu te fractures are identified. Minimal olecranon spurring is present. Irregularity of the medial and la teral condyles is chronic. A 7 mm well-corticated calcific density along the medial condyle is chroni c. IMPRESSION: No acute fractures within the left elbow. No evidence for a joint effusion. ACT 112: Negative or not required by law. Electronically signed by: Chevy Tobias M.D. 01/27/2025 10:58 AM
--- NOTE | 2025-01-27 11:00 | XRay Report ---
XR foot LT min 3V routine, XR ankle LT min 3V routine CLINICAL HISTORY: fall, r/o fracture COMPARISON: None FINDINGS: No acute fracture or dislocation seen at the left ankle. There are mild degenerative gifford es. No acute fracture or dislocation seen at the left foot. There are mild degenerative changes without e rosions. There is a small plantar calcaneal spur. IMPRESSION: No fracture seen. ACT 112: Negative or not required by law. Electronically signed by: Toni Renee M.D. 01/27/2025 10:59 AM
[2025-01-27] MEDS ORDERED: METOPROLOL TARTRATE 1 MG/ML VIAL IV SCH (12:00)
--- NOTE | 2025-01-27 16:37 | Hospitalist Progress Note ---
Date of Service January 27, 2025 Assessment & Plan (1) Aspiration pneumonia: (2) Altered mental status: Plan #Pneumonia, possible healthcare associated possible Metabolic encephalopathy admitted to the hospital last month for recurrent falls, acute CVA CT chest: No evidence for pulmonary embolism. Occlusion of the right bronchus intermedius and distal left lower lobe segmental bronchus, resulting in postobstructive atelectasis. Additionally, there is an area of ill-defined low density material in the medial right lower lobe, concerning for aspiration pneumonia. 01/27 weaned off O2 supplement, currently on room air Afebrile Blood cultures: Pending Sputum culture: Pending collection Nasal MRSA swab: Negative BioFire: Negative continue IV cefepime continue incentive spirometry, flutter valve, hypertonic saline nebs twice daily Pulm consulted, does not recommend bronchoscopy at this point speech therapist consulted Advanced to soft diet status post FEES study at bedside today No signs of aspiration #Mild troponin elevation, likely secondary to demand ischemia from hypoxia Troponin 37.3, 38.4, 42.2, 14.9 --No cardiac symptoms #Duodenitis -- seen on CT abdomen pelvis -- Denies abdominal pain No charis melena noted Continue Protonix for now #Recent history CVA, w/history of previous CVA -- continue aspirin, atorvastatin, Plavix -PT/OT -family does not want to go back to the same rehab, SW consult to evaluate options on this front #IDDM -home dose insulin -monitor for ISS/basal bolus need #HtN, HLD -- blood pressure elevated, lisinopril added Monitor closely #MDD, vascular dementia #L carotid artery stenosis - continuehome meds DVT prophylaxis Lovenox Disposition Patient's family prefers that patient be transition to home with home health services upon discharge plan of care discussed with patient and daughter in detail and at length all questions answered they are understanding, agreeable, comfortable with the plan of care Admission and Anticipated Discharge Date Admission Date: January 25, 2025 Subjective follow-up for pneumonia with acute hypoxia, etc. seen resting in bed, comfortable, sleeping but easily awakened Patient's Ana Maria and daughter Elza at the bedside visiting Patient states he feels okay overall Answering simple questions denies cough, shortness of breath Denies any pain in his body No other new symptoms Review of Systems Review of Systems: all noted and negative except for above Physical Exam Physical Exam: General- oriented x 1-2, not in distress, speaks in sentences with no effort or accessory muscle use Eyes- anicteric Neck- no JVD Lungs- mild crackles right base, clear on the left Heart- normal rate, regular rhythm; no murmurs Abdomen- normal bowel sounds, nondistended, soft, no tenderness Extremities- no pretibial edema, no calf tenderness left elbow: Resolving hematoma Left ankle: resolving hematoma Neuro- Somewhat drowsy,, oriented 1-2; no gross focal neurologic deficits Skin- warm & dry Results & Data Results & Data Vital Signs (Past 12 Hours) Vital Signs Temp Pulse Pulse Resp BP Pulse Ox O2 Del Method 01/27/25 15:54 36.8 C 85 18 128/75 91 Room Air 01/27/25 15:00 86 01/27/25 11:11 37.1 C 84 18 133/72 92 Room Air 01/27/25 11:00 69 01/27/25 11:00 Room Air 01/27/25 10:30 88 18 94 Room Air 01/27/25 08:08 36.7 C 86 18 119/70 94 Room Air all noted and reviewed including below (2) Altered mental status Altered mental status type: unspecified Qualified Code(s): R41.82 - Altered mental status, unspecified
[2025-01-27 21:00] LABS: BUN Creatinine Ratio 29.7 (10-20); Calcium 8.6 mg/dl (8.6-10.3); Potassium 2.8 mmol/L (3.5-5.1)
[2025-01-27 21:05] LABS: Basophils # (auto) 0.03 K/uL (0.00-0.20); Basophils % (auto) 0.2 %; Eosinophils # (auto) 0.18 K/uL (0.00-0.50); Eosinophils % (auto) 1.3 %; Hematocrit (blood only) 37.1 % (42.0-52.0); Hemoglobin 12.7 g/dl (14.0-18.0); Immature Granulocytes # (auto) 0.22 K/uL (0.01-0.20); Immature Granulocytes % (auto) 1.6 %; Lymphocytes # (auto) 1.54 K/uL (1.20-3.40); Mean Corpuscular Hemoglobin 30.9 pg (25.0-34.0); Mean Corpuscular Hgb Conc 34.2 g/dL (32.0-36.0); Mean Corpuscular Volume 90.3 fL (80.0-100.0); Mean Platelet Volume 9.4 fL (9.4-12.4); Monocytes # (auto) 1.15 K/uL (0.11-0.59); Monocytes % (auto) 8.2 %; Neutrophils # (auto) 10.88 K/uL (1.40-6.50); Neutrophils % (auto) 77.7 %; Platelet Count 275 K/uL (130-400); RDW Coefficient of Variation 12.7 % (11.5-14.5); RDW Standard Deviation 41.8 fL (36.4-46.3); Red Blood Count 4.11 M/uL (4.70-6.10)
[2025-01-28] MEDS: lisinopril 2.5 MG TAB PO STA (01:15)
[2025-01-28 07:36] LABS: Basophils # (auto) 0.03 K/uL (0.00-0.20); Basophils % (auto) 0.2 %; Eosinophils # (auto) 0.32 K/uL (0.00-0.50); Eosinophils % (auto) 2.4 %; Immature Granulocytes # (auto) 0.27 K/uL (0.01-0.20); Lymphocytes # (auto) 1.77 K/uL (1.20-3.40); Lymphocytes % (auto) 13.2 %; Mean Corpuscular Hemoglobin 31.1 pg (25.0-34.0); Mean Corpuscular Hgb Conc 34.2 g/dL (32.0-36.0); Mean Corpuscular Volume 90.9 fL (80.0-100.0); Mean Platelet Volume 9.6 fL (9.4-12.4); Monocytes # (auto) 1.21 K/uL (0.11-0.59); Monocytes % (auto) 9.1 %; Neutrophils # (auto) 9.77 K/uL (1.40-6.50); Neutrophils % (auto) 73.1 %; Platelet Count 295 K/uL (130-400); RDW Coefficient of Variation 12.6 % (11.5-14.5); RDW Standard Deviation 41.8 fL (36.4-46.3); Red Blood Count 4.18 M/uL (4.70-6.10); White Blood Count 13.37 K/ul (4.8-10.8)
[2025-01-28 08:01] LABS: BUN Creatinine Ratio 25.4 (10-20); Calcium 8.6 mg/dl (8.6-10.3); Creatinine Clr Calc Pharmacy 98.3 ml/min; Potassium 2.9 mmol/L (3.5-5.1)
[2025-01-28] MEDS: POTASSIUM CHLORIDE CRTAB 20 MEQ TABCR PO STA (09:01)
[2025-01-28] MEDS: POTASSIUM CHLORIDE / WTR 10 MEQ/100 ML PLCT IV SCH ×2 (09:01→17:06)
[2025-01-28] MEDS: POTASSIUM CHLORIDE 20 MEQ/15 ML UDC PO STA (09:22)
[2025-01-28 09:25] LABS: Phosphorus 3.1 mg/dl (2.5-4.9)
--- NOTE | 2025-01-28 09:52 | Hospitalist Progress Note ---
Date of Service January 28, 2025 Assessment & Plan (1) Aspiration pneumonia: (2) Altered mental status: Plan #Pneumonia, possible healthcare associated possible Metabolic encephalopathy admitted to the hospital last month for recurrent falls, acute CVA CT chest: No evidence for pulmonary embolism. Occlusion of the right bronchus intermedius and distal left lower lobe segmental bronchus, resulting in postobstructive atelectasis. Additionally, there is an area of ill-defined low density material in the medial right lower lobe, concerning for aspiration pneumonia. 01/27 weaned off O2 supplement, currently on room air Afebrile Blood cultures: Pending Sputum culture: Pending collection Nasal MRSA swab: Negative BioFire: Negative continue IV cefepime continue incentive spirometry, flutter valve, hypertonic saline nebs twice daily Pulm consulted, does not recommend bronchoscopy at this point speech therapist consulted Advanced to soft diet status post FEES study at bedside, No signs of aspiration Mild troponin elevation, likely secondary to demand ischemia from hypoxia Troponin 37.3, 38.4, 42.2, 14.9 --No cardiac symptoms Duodenitis -- seen on CT abdomen pelvis -- Denies abdominal pain No charis melena noted Continue Protonix for now Recent history CVA, w/history of previous CVA -- continue aspirin, atorvastatin, Plavix -PT/OT -family does not want to go back to the same rehab, SW consult to evaluate options on this front Episodes of nonsustained V. tach noted on telemetry Asymptomatic Check electrolytes -> found Hypokalemia Echocardiogram last month showing preserved EF, mild aortic stenosis Monitor K 2.9, replace and monitor Hypernatremia Na 146 this AM poss. 2/2 to poor oral intake? will recjeck sodium this Pm will provide gentle ivf #IDDM -home dose insulin -monitor for ISS/basal bolus need #HtN, HLD -- blood pressure elevated, lisinopril added Monitor closely #MDD, vascular dementia #L carotid artery stenosis - continue home meds DVT prophylaxis Lovenox Disposition Patient's family prefers that patient be transition to home with home health services upon discharge Pt needs to be transferred between bed and chair or wheelchair to commode and without use of lift, pt would be confined to bed. The patient has a medical condition which requires positioning of the body in ways not feasible in an ordinary bed to alleviate pain and skin breakdown. Also to prevent aspiration given recent CVA, needs HOB elevated > 30 degrees most of the time. Admission and Anticipated Discharge Date Admission Date: January 25, 2025 Subjective Pt seen in follow-up for pneumonia with acute hypoxia, etc. Recently hospitalized for falls, found to have CVA currently lying in bed in NAD, opens eyes to voice and tactile stimuli, only answers some Per RN pt was able to take AM meds, worked with flutter valve before and when family around Yesterday pt's Ana Maria and daughter Elza at the bedside visiting per previous provider denies cough, shortness of breath Denies any pain in his body K 2.9, NSVT this AM and also yesterday. K replaced now UA repeat ordered Review of Systems Review of Systems: All systems reviewed & are unremarkable except as noted in Subjective Physical Exam Physical Exam: General- oriented x 1-2, not in distress, drowsy Eyes- anicteric Neck- no JVD Lungs- mild crackles right base, clear on the left Heart- normal rate, regular rhythm; no murmurs Abdomen- normal bowel sounds, nondistended, soft, no tenderness Extremities- no pretibial edema left elbow: Resolving hematoma Left ankle: resolving hematoma Neuro- Somewhat drowsy, opens eyes to voice and tactile stimuli, oriented 1-2; moves extremities Skin- warm & dry Results & Data Results & Data Vital Signs (Past 12 Hours) Vital Signs Temp Pulse Resp BP Pulse Ox O2 Del Method 01/28/25 07:47 36.4 C L 79 18 143/84 H 92 Room Air 01/28/25 07:21 74 15 93 Room Air 01/28/25 02:44 36.8 C 75 18 167/87 H 93 Room Air 01/27/25 23:16 36.7 C 88 18 183/89 H 94 Room Air Laboratory Results 01/28/25 01/28/25 01/27/25 Range/Units 07:46 06:41 20:27 WBC 13.37 H 14.00 H (4.8-10.8) K/ul RBC 4.18 L 4.11 L (4.70-6.10) M/uL Hgb 13.0 L 12.7 L (14.0-18.0) g/dl Hct 38.0 L 37.1 L (42.0-52.0) % MCV 90.9 90.3 (80.0-100.0) fL MCH 31.1 30.9 (25.0-34.0) pg MCHC 34.2 34.2 (32.0-36.0) g/dL RDW Std Deviation 41.8 41.8 (36.4-46.3) fL RDW Coeff of Nikita 12.6 12.7 (11.5-14.5) % Plt Count 295 275 (130-400) K/uL MPV 9.6 9.4 (9.4-12.4) fL Immature Gran % (Auto) 2.0 1.6 % Neut % (Auto) 73.1 77.7 % Lymph % (Auto) 13.2 11.0 % Starr % (Auto) 9.1 8.2 % Eos % (Auto) 2.4 1.3 % Baso % (Auto) 0.2 0.2 % Neut # (Auto) 9.77 H 10.88 H (1.40-6.50) K/uL Lymph # (Auto) 1.77 1.54 (1.20-3.40) K/uL Starr # (Auto) 1.21 H 1.15 H (0.11-0.59) K/uL Eos # (Auto) 0.32 0.18 (0.00-0.50) K/uL Baso # (Auto) 0.03 0.03 (0.00-0.20) K/uL Immature Gran # (Auto) 0.27 H 0.22 H (0.01-0.20) K/uL Sodium 146 H 142 (136-145) mmol/L Potassium 2.9 L 2.8 L (3.5-5.1) mmol/L Chloride 109 H 110 H (98-107) mmol/L Carbon Dioxide 30 26 (21-32) mmol/L Anion Gap 7 6 (3-11) BUN 17 22 (6-23) mg/dl Creatinine 0.67 0.74 (0.6-1.4) mg/dl Est Cr Clr Drug Dosing 98.3 89.0 ml/min eGFR 96.16 93.32 BUN/Creatinine Ratio 25.4 H 29.7 H (10-20) Glucose 147 H 203 H (70-99(Fasting)) mg/dl POC Glucose 143 H (70-99) mg/dl Calcium 8.6 8.6 (8.6-10.3) mg/dl Phosphorus 3.1 (2.5-4.9) mg/dl Magnesium 2.0 2.0 (1.7-2.4) mg/dl 01/27/25 01/27/25 01/27/25 Range/Units 19:47 16:10 11:35 WBC (4.8-10.8) K/ul RBC (4.70-6.10) M/uL Hgb (14.0-18.0) g/dl Hct (42.0-52.0) % MCV (80.0-100.0) fL MCH (25.0-34.0) pg MCHC (32.0-36.0) g/dL RDW Std Deviation (36.4-46.3) fL RDW Coeff of Nikita (11.5-14.5) % Plt Count (130-400) K/uL MPV (9.4-12.4) fL Immature Gran % (Auto) % Neut % (Auto) % Lymph % (Auto) % Starr % (Auto) % Eos % (Auto) % Baso % (Auto) % Neut # (Auto) (1.40-6.50) K/uL Lymph # (Auto) (1.20-3.40) K/uL Starr # (Auto) (0.11-0.59) K/uL Eos # (Auto) (0.00-0.50) K/uL Baso # (Auto) (0.00-0.20) K/uL Immature Gran # (Auto) (0.01-0.20) K/uL Sodium (136-145) mmol/L Potassium (3.5-5.1) mmol/L Chloride (98-107) mmol/L Carbon Dioxide (21-32) mmol/L Anion Gap (3-11) BUN (6-23) mg/dl Creatinine (0.6-1.4) mg/dl Est Cr Clr Drug Dosing ml/min eGFR BUN/Creatinine Ratio (10-20) Glucose (70-99(Fasting)) mg/dl POC Glucose 201 H 169 H 180 H (70-99) mg/dl Calcium (8.6-10.3) mg/dl Phosphorus (2.5-4.9) mg/dl Magnesium (1.7-2.4) mg/dl Medications Administered Current Inpatient Medications Acetaminophen (Acetaminophen 325 Mg Tab) 650 mg PO Q4H PRN PRN Reason: Pain or Fever Stop: 02/24/25 15:43 Aspirin (Aspirin 81 Mg Ectab) 81 mg PO DAILY PAO Stop: 02/25/25 08:59 Last Admin: 01/28/25 09:03 Dose: 81 mg Atorvastatin Calcium (Atorvastatin 40 Mg Tab) 80 mg PO DAILY PAO Stop: 02/25/25 08:59 Last Admin: 01/28/25 09:03 Dose: 80 mg Clopidogrel Bisulfate (Clopidogrel Bisulfate 75 Mg Tab) 75 mg PO DAILY PAO Stop: 02/25/25 08:59 Last Admin: 01/28/25 09:02 Dose: 75 mg Dextrose (Dextrose 50% 50 Ml Syringe) 25 - 50 ml IV UD PRN; Protocol PRN Reason: Hypoglycemia Protocol Stop: 02/24/25 15:53 Enoxaparin Sodium (Enoxaparin Inj 40 Mg/0.4 Ml Syr) 40 mg SQ Q24H PAO Stop: 02/25/25 17:29 Last Admin: 01/27/25 17:10 Dose: 40 mg Folic Acid (Folic Acid 400 Mcg Tab) 800 mcg PO DAILY PAO Stop: 02/25/25 08:59 Last Admin: 01/28/25 09:02 Dose: 800 mcg Glucagon (Glucagon For Inj 1 Mg Vial) 1 mg SQ UD PRN; Protocol PRN Reason: Hypoglycemia Protocol Stop: 02/24/25 15:53 Glucose (Glucose 40% Gel 15 Gm Tube) 15 - 30 gm PO UD PRN; Protocol PRN Reason: Hypoglycemia Protocol Stop: 02/24/25 15:53 Glucose (Glucose 10 Tab/Tube) 4 - 8 tab PO UD PRN; Protocol PRN Reason: Hypoglycemia Protocol Stop: 02/24/25 15:53 Pantoprazole Sodium (Protonix) 40 mg in 10 mls @ 5 mls/min IV Q12H PAO Stop: 02/25/25 08:59 Last Admin: 01/28/25 09:01 Dose: 5 mls/min Cefepime HCl (Maxipime 2000mg) 2,000 mg in 20 mls @ 5 mls/min IV Q8H PAO; Protocol Stop: 02/02/25 08:29 Potassium Chloride (K Ty / Wtr) 10 meq in 100 mls @ 100 mls/hr IV Q1H [facility] Stop: 01/28/25 10:29 Last Admin: 01/28/25 09:01 Dose: 100 mls/hr Insulin Aspart (Insulin Aspart Per Unit Charge) 0 units SC ACHS [facility] Stop: 02/25/25 11:29 Last Admin: 01/28/25 08:42 Dose: Not Given Insulin Glargine (Lantus Per Unit Charge) 0 units SC HS [facility]; Protocol Stop: 02/25/25 20:59 Last Admin: 01/27/25 20:52 Dose: 15 units Lactobacillus Acidophilus (Advanced Probiotic 625 Mg Capsule) 1,250 mg PO DAILY [facility] Stop: 02/25/25 08:59 Last Admin: 01/28/25 09:02 Dose: 1,250 mg Lisinopril (Lisinopril 5 Mg Tab) 5 mg PO [facility] Stop: 02/27/25 20:59 Magnesium Oxide (Magnesium Oxide 400 Mg Tab) 200 mg PO DAILY [facility] Stop: 02/25/25 08:59 Last Admin: 01/28/25 09:02 Dose: 200 mg Miscellaneous (Carbohydrates For Hypoglycemia ) 15 - 30 gm PO UD PRN PRN Reason: Hypoglycemia Protocol Stop: 02/24/25 15:53 Miscellaneous Information (Pharmacy Glycemic Mgmt Consult) 1 each N/A UD PRN PRN Reason: Consult Stop: 02/24/25 15:53 Ondansetron HCl (Ondansetron Inj 2 Mg/Ml 2 Ml Vial) 4 mg IV Q6H PRN PRN Reason: Nausea Stop: 02/24/25 15:43 Sodium Chloride (Sodium Chlor 7% 4 Ml Neb) 4 ml NEB BIDR [facility] Stop: 02/26/25 10:19 Last Admin: 01/28/25 07:20 Dose: 4 ml Vitamin D (Cholecalciferol 25 Mcg (1000 Units) Tab) 25 mcg PO DAILY [facility] Stop: 02/25/25 08:59 Last Admin: 01/28/25 09:03 Dose: 25 mcg Vitamin E (Tocopheryl, Dl-Alpha 100 Units 45 Mg Cap) 180 mg PO DAILY [facility] Stop: 02/25/25 08:59 Last Admin: 01/28/25 09:02 Dose: 180 mg Zinc Sulfate (Zinc Sulfate 220 Mg Capsule) 220 mg PO DAILY [facility] Stop: 02/25/25 08:59 Last Admin: 01/28/25 09:02 Dose: 220 mg (2) Altered mental status Altered mental status type: unspecified Qualified Code(s): R41.82 - Altered mental status, unspecified
[2025-01-28] MEDS: CEFEPIME 2000MG 2,000 MG/20 ML SYR IV SCH (10:24)
[2025-01-28] MEDS: D5W AND 1/2NSS + 20MEQ KCL 20 MEQ/1,000 ML BAG IV SCH (11:22)
--- NOTE | 2025-01-28 13:47 | Pharmacy Report ---
Pharmacy Glycemic Short Note 2 - Date of Service January 28, 2025 - Glycemic Short BSG Results (Last 24 hours): 01/27/25 01/27/25 01/27/25 16:10 19:47 20:27 Glucose 203 H POC Glucose 169 H 201 H 01/28/25 01/28/25 01/28/25 06:41 07:46 10:57 Glucose 147 H POC Glucose 143 H 185 H OUTPATIENT ANTIDIABETIC REGIMEN: * Tresiba 23 units SC HS * Novolog AC (0-12 units) per sliding scale HbA1c: 7.3% (01/12/25) ASSESSMENT: 01/28/25: * Blood sugars intermittently elevated yesterday * Will tighten Novolog and allow for increased basal insulin this evening * D5-1/2 NSS + 20 KCl @60 ml/hr initiated today 01/26/25: * MS is a 79 year old male admitted with altered mental status likely secondary to aspiration pneumonia, duodenitis, or UTI (patient does have history of vascular dementia). Patient recently discharged to SNF from [facility] on 01/20/25 following CVA * Originally NPO, but now ordered T2DM diet * Blood sugars reasonable thus far and will maintain current insulin regimen w/ basal scale this evening * Vancomycin discontinued due to negative MRSA nasal swab * Patient has history of recurrent falls, will utilize higher goal range to minimize risk of hypoglycemia PLAN FOR INPATIENT GLYCEMIC CONTROL: * Basal insulin * Lantus 15-20 units SC HS (see EHR for details) * Bolus insulin * NovoLog per scale ACHS or Q6hrs while NPO * Goal Range: Low 120 mg/dL - High 150 mg/dL * Correction Factor: 25 mg/dL/unit * Nutritional / Prandial insulin per carb ratio of 1 unit per 8 grams CHO consumed
[2025-01-28 15:07] LABS: BUN Creatinine Ratio 25.7 (10-20); Calcium 8.4 mg/dl (8.6-10.3); Potassium 3.4 mmol/L (3.5-5.1)
--- NOTE | 2025-01-28 17:28 | XRay Report ---
Clinical history: Pain 2 views of the abdomen were obtained Findings: There are mildly prominent air-filled loops of small and large bowel, which may be due to ileus. No renal or ureteral calculi are seen. No foreign body is evident. There is lumbar scoliosis and degenerative disc disease Impression: Possible mild ileus Electronically signed by Wojciech Connor 01-28-2025 5:28 PM
--- NOTE | 2025-01-28 17:41 | XRay Report ---
Clinical History: Chest pain Technique: A frontal view of the chest was obtained Comparison is made to the prior examination dated 01/25/2025 Findings: There are no confluent pulmonary infiltrates. The heart size is within normal limits. No pleural effusion or pneumothorax is seen. There is an apparent small left upper lobe nodule, likely a benign granuloma No fracture is noted. There is thoracic degenerative disc disease Impression: 1. No definite acute process 2. No definite change in a suspected small left upper lobe nodule, likely a benign granuloma Electronically signed by Wojciech Connor 01-28-2025 5:40 PM
[2025-01-28] MEDS ORDERED: SIMETHICONE 40 MG/0.6 ML 30ML PO PRN (17:44)
[2025-01-28] MEDS: lisinopril 5 MG TAB PO SCH (22:13)
[2025-01-29 07:17] LABS: Hematocrit (blood only) 36.4 % (42.0-52.0); Hemoglobin 12.6 g/dl (14.0-18.0); Mean Corpuscular Hemoglobin 31.7 pg (25.0-34.0); Mean Corpuscular Hgb Conc 34.6 g/dL (32.0-36.0); Mean Corpuscular Volume 91.5 fL (80.0-100.0); Platelet Count 290 K/uL (130-400); RDW Coefficient of Variation 12.6 % (11.5-14.5); RDW Standard Deviation 42.1 fL (36.4-46.3); Red Blood Count 3.98 M/uL (4.70-6.10); White Blood Count 14.28 K/ul (4.8-10.8)
[2025-01-29 08:03] LABS: BUN Creatinine Ratio 23.1 (10-20); Calcium 8.6 mg/dl (8.6-10.3); Creatinine Clr Calc Pharmacy 101.4 ml/min; Magnesium 2.1 mg/dl (1.7-2.4); Phosphorus 3.1 mg/dl (2.5-4.9); Potassium 3.5 mmol/L (3.5-5.1)
[2025-01-29] MEDS: POTASSIUM CHLORIDE CRTAB 20 MEQ TABCR PO STA (09:44)
[2025-01-29 10:26] LABS: Appearance Urine Cloudy (Clear); Bacteria Urine Automated None Seen (None Seen); Bilirubin Urine Negative (Negative); Blood Urine Negative (Negative); Cast Urine Automated >20 /lpf (0-2); Color Urine Dark Yellow; Glucose Urine UA Negative (Negative); Ketones Urine 1+ (Negative); Leukocyte Esterase Urine Negative (Negative); Nitrite Urine Negative (Negative); Protein Urine 2+ (Negative); Specific Gravity Urine 1.039 (1.000-1.030); Urobilinogen Urine Negative (Negative); WBC Urine Automated 0-5 /hpf (0-5)
--- NOTE | 2025-01-29 16:24 | Hospitalist Progress Note ---
Date of Service January 29, 2025 Assessment & Plan (1) Aspiration pneumonia: (2) Altered mental status: Plan Per previous provider w/addendum #Pneumonia, possible healthcare associated possible Metabolic encephalopathy admitted to the hospital last month for recurrent falls, acute CVA CT chest: No evidence for pulmonary embolism. Occlusion of the right bronchus intermedius and distal left lower lobe segmental bronchus, resulting in postobstructive atelectasis. Additionally, there is an area of ill-defined low density material in the medial right lower lobe, concerning for aspiration pneumonia. 01/27 weaned off O2 supplement, currently on room air Afebrile Blood cultures: negative Sputum culture: Pending collection Nasal MRSA swab: Negative BioFire: Negative continue IV cefepime continue incentive spirometry, flutter valve, hypertonic saline nebs twice daily Pulm consulted, does not recommend bronchoscopy at this point speech therapist consulted Advanced to soft diet status post FEES study at bedside, No signs of aspiration Mild troponin elevation, likely secondary to demand ischemia from hypoxia Troponin 37.3, 38.4, 42.2, 14.9 --No cardiac symptoms Duodenitis -- seen on CT abdomen pelvis -- Denies abdominal pain No charis melena noted Continue Protonix for now Recent history CVA, w/history of previous CVA -- continue aspirin, atorvastatin, Plavix -PT/OT -family does not want to go back to the same rehab, SW consult to evaluate options on this front Episodes of nonsustained V. tach noted on telemetry Asymptomatic Check electrolytes -> found Hypokalemia Echocardiogram last month showing preserved EF, mild aortic stenosis Monitor K 2.9, replace and monitor Hypernatremia Na 146 4/9 AM, recheck 142-144 after ivf cont. to monitor #IDDM -home dose insulin -monitor for ISS/basal bolus need #HtN, HLD -- blood pressure elevated, lisinopril added Monitor closely #MDD, vascular dementia #L carotid artery stenosis - continue home meds DVT prophylaxis Lovenox Disposition Patient's family prefers that patient be transition to home with home health services upon discharge Pt needs to be transferred between bed and chair or wheelchair to commode and without use of lift, pt would be confined to bed. The patient has a medical condition which requires positioning of the body in ways not feasible in an ordinary bed to alleviate pain and skin breakdown. Also to prevent aspiration given recent CVA, needs HOB elevated > 30 degrees most of the time. Admission and Anticipated Discharge Date Admission Date: January 25, 2025 Subjective Pt seen in follow-up for pneumonia with acute hypoxia, etc. Recently hospitalized for falls, found to have CVA currently lying in bed in NAD, barely opens eyes to voice/tactile stimuli, only answers some Per RN pt was able to take AM meds family at the bedside denies cough, shortness of breath reported some abd. discomfort that then resolved discussed w/RN at the bedside Review of Systems Review of Systems: All systems reviewed & are unremarkable except as noted in Subjective Physical Exam Physical Exam: General- WD/WN M in NAD, drowsy Neck- no JVD Lungs- mild crackles right base, clear on the left Heart- normal rate, regular rhythm; no murmurs Abdomen- normal bowel sounds, nondistended, soft, no tenderness Extremities- no pretibial edema left elbow: Resolving hematoma Left ankle: resolving hematoma Neuro- drowsy, opens eyes to voice and tactile stimuli, moves extremities Skin- warm & dry Results & Data Results & Data Vital Signs (Past 12 Hours) Vital Signs Temp Pulse Pulse Resp BP Pulse Ox O2 Del Method 01/29/25 16:06 36.5 C 76 18 147/88 H 93 Room Air 01/29/25 15:02 74 01/29/25 11:59 36.3 C L 78 20 142/79 H 93 Room Air 01/29/25 08:54 81 01/29/25 08:05 36.6 C 76 18 150/92 H 99 Nebulizer 01/29/25 07:31 77 18 93 Room Air Laboratory Results 01/29/25 01/29/25 01/29/25 Range/Units Unknown 11:32 07:21 WBC (4.8-10.8) K/ul RBC (4.70-6.10) M/uL Hgb (14.0-18.0) g/dl Hct (42.0-52.0) % MCV (80.0-100.0) fL MCH (25.0-34.0) pg MCHC (32.0-36.0) g/dL RDW Std Deviation (36.4-46.3) fL RDW Coeff of Nikita (11.5-14.5) % Plt Count (130-400) K/uL MPV (9.4-12.4) fL Sodium (136-145) mmol/L Potassium (3.5-5.1) mmol/L Chloride (98-107) mmol/L Carbon Dioxide (21-32) mmol/L Anion Gap (3-11) BUN (6-23) mg/dl Creatinine (0.6-1.4) mg/dl Est Cr Clr Drug Dosing ml/min eGFR BUN/Creatinine Ratio (10-20) Glucose (70-99(Fasting)) mg/dl POC Glucose 144 H 137 H (70-99) mg/dl Calcium (8.6-10.3) mg/dl Phosphorus (2.5-4.9) mg/dl Magnesium (1.7-2.4) mg/dl Urine Color Dark Yellow Urine Appearance Cloudy A (Clear) Urine pH 5.0 (4.5-7.5) Ur Specific [place] 1.039 H (1.000-1.030) Urine Protein 2+ H (Negative) Urine Glucose (UA) Negative (Negative) Urine Ketones 1+ H (Negative) Urine Blood Negative (Negative) Urine Nitrite Negative (Negative) Urine Bilirubin Negative (Negative) Urine Urobilinogen Negative (Negative) Ur Leukocyte Esterase Negative (Negative) Urine WBC (Auto) 0-5 (0-5) /hpf Urine RBC (Auto) 11-20 H (0-2) /hpf U Hyaline Cast (Auto) >20 H (0-2) /lpf U Epithel Cells (Auto) 6-10 H (0-2) /hpf Urine Bacteria (Auto) None Seen (None Seen) 01/29/25 01/28/25 01/28/25 Range/Units 07:02 20:24 16:40 WBC 14.28 H (4.8-10.8) K/ul RBC 3.98 L (4.70-6.10) M/uL Hgb 12.6 L (14.0-18.0) g/dl Hct 36.4 L (42.0-52.0) % MCV 91.5 (80.0-100.0) fL MCH 31.7 (25.0-34.0) pg MCHC 34.6 (32.0-36.0) g/dL RDW Std Deviation 42.1 (36.4-46.3) fL RDW Coeff of Nikita 12.6 (11.5-14.5) % Plt Count 290 (130-400) K/uL MPV 9.0 L (9.4-12.4) fL Sodium 144 (136-145) mmol/L Potassium 3.5 (3.5-5.1) mmol/L Chloride 110 H (98-107) mmol/L Carbon Dioxide 29 (21-32) mmol/L Anion Gap 5 (3-11) BUN 15 (6-23) mg/dl Creatinine 0.65 (0.6-1.4) mg/dl Est Cr Clr Drug Dosing 101.4 ml/min eGFR 97.05 BUN/Creatinine Ratio 23.1 H (10-20) Glucose 135 H (70-99(Fasting)) mg/dl POC Glucose 195 H 193 H (70-99) mg/dl Calcium 8.6 (8.6-10.3) mg/dl Phosphorus 3.1 (2.5-4.9) mg/dl Magnesium 2.1 (1.7-2.4) mg/dl Urine Color Urine Appearance (Clear) Urine pH (4.5-7.5) Ur Specific [place] (1.000-1.030) Urine Protein (Negative) Urine Glucose (UA) (Negative) Urine Ketones (Negative) Urine Blood (Negative) Urine Nitrite (Negative) Urine Bilirubin (Negative) Urine Urobilinogen (Negative) Ur Leukocyte Esterase (Negative) Urine WBC (Auto) (0-5) /hpf Urine RBC (Auto) (0-2) /hpf U Hyaline Cast (Auto) (0-2) /lpf U Epithel Cells (Auto) (0-2) /hpf Urine Bacteria (Auto) (None Seen) Medications Administered Current Inpatient Medications Acetaminophen (Acetaminophen 325 Mg Tab) 650 mg PO Q4H PRN PRN Reason: Pain or Fever Stop: 02/24/25 15:43 Aspirin (Aspirin 81 Mg Ectab) 81 mg PO DAILY [facility] Stop: 02/25/25 08:59 Last Admin: 01/29/25 07:41 Dose: 81 mg Atorvastatin Calcium (Atorvastatin 40 Mg Tab) 80 mg PO DAILY [facility] Stop: 02/25/25 08:59 Last Admin: 01/29/25 07:41 Dose: 80 mg Clopidogrel Bisulfate (Clopidogrel Bisulfate 75 Mg Tab) 75 mg PO DAILY [facility] Stop: 02/25/25 08:59 Last Admin: 01/29/25 07:40 Dose: 75 mg Dextrose (Dextrose 50% 50 Ml Syringe) 25 - 50 ml IV UD PRN; Protocol PRN Reason: Hypoglycemia Protocol Stop: 02/24/25 15:53 Enoxaparin Sodium (Enoxaparin Inj 40 Mg/0.4 Ml Syr) 40 mg SQ Q24H [facility] Stop: 02/25/25 17:29 Last Admin: 01/28/25 17:06 Dose: 40 mg Folic Acid (Folic Acid 400 Mcg Tab) 800 mcg PO DAILY [facility] Stop: 02/25/25 08:59 Last Admin: 01/29/25 07:41 Dose: 800 mcg Glucagon (Glucagon For Inj 1 Mg Vial) 1 mg SQ UD PRN; Protocol PRN Reason: Hypoglycemia Protocol Stop: 02/24/25 15:53 Glucose (Glucose 40% Gel 15 Gm Tube) 15 - 30 gm PO UD PRN; Protocol PRN Reason: Hypoglycemia Protocol Stop: 02/24/25 15:53 Glucose (Glucose 10 Tab/Tube) 4 - 8 tab PO UD PRN; Protocol PRN Reason: Hypoglycemia Protocol Stop: 02/24/25 15:53 Pantoprazole Sodium (Protonix) 40 mg in 10 mls @ 5 mls/min IV Q12H [facility] Stop: 02/25/25 08:59 Last Admin: 01/29/25 07:39 Dose: 5 mls/min Cefepime HCl (Maxipime 2000mg) 2,000 mg in 20 mls @ 5 mls/min IV Q8H [facility]; Protocol Stop: 02/02/25 08:29 Last Admin: 01/29/25 08:11 Dose: 5 mls/min Insulin Aspart (Insulin Aspart Per Unit Charge) 0 units SC [facility] Stop: 02/25/25 11:29 Last Admin: 01/29/25 12:15 Dose: Not Given Insulin Glargine (Lantus Per Unit Charge) 0 units SC [facility]; Protocol Stop: 02/25/25 20:59 Last Admin: 01/28/25 22:12 Dose: 20 units Lactobacillus Acidophilus (Advanced Probiotic 625 Mg Capsule) 1,250 mg PO DAILY [facility] Stop: 02/25/25 08:59 Last Admin: 01/29/25 07:39 Dose: 1,250 mg Lisinopril (Lisinopril 5 Mg Tab) 5 mg PO HS [facility] Stop: 02/27/25 20:59 Last Admin: 01/28/25 22:13 Dose: 5 mg Magnesium Oxide (Magnesium Oxide 400 Mg Tab) 200 mg PO DAILY [facility] Stop: 02/25/25 08:59 Last Admin: 01/29/25 07:40 Dose: 200 mg Miscellaneous (Carbohydrates For Hypoglycemia ) 15 - 30 gm PO UD PRN PRN Reason: Hypoglycemia Protocol Stop: 02/24/25 15:53 Miscellaneous Information (Pharmacy Glycemic Mgmt Consult) 1 each N/A UD PRN PRN Reason: Consult Stop: 02/24/25 15:53 Ondansetron HCl (Ondansetron Inj 2 Mg/Ml 2 Ml Vial) 4 mg IV Q6H PRN PRN Reason: Nausea Stop: 02/24/25 15:43 Simethicone (Simethicone 40 Mg/0.6 Ml 30ml) 80 mg PO Q6H PRN PRN Reason: Flatulence Stop: 02/27/25 17:43 Sodium Chloride (Sodium Chlor 7% 4 Ml Neb) 4 ml NEB BIDR [facility] Stop: 02/26/25 10:19 Last Admin: 01/29/25 07:31 Dose: 4 ml Vitamin D (Cholecalciferol 25 Mcg (1000 Units) Tab) 25 mcg PO DAILY [facility] Stop: 02/25/25 08:59 Last Admin: 01/29/25 07:41 Dose: 25 mcg Vitamin E (Tocopheryl, Dl-Alpha 100 Units 45 Mg Cap) 180 mg PO DAILY [facility] Stop: 02/25/25 08:59 Last Admin: 01/29/25 07:39 Dose: 180 mg Zinc Sulfate (Zinc Sulfate 220 Mg Capsule) 220 mg PO DAILY [facility] Stop: 02/25/25 08:59 Last Admin: 01/29/25 07:40 Dose: 220 mg (2) Altered mental status Altered mental status type: unspecified Qualified Code(s): R41.82 - Altered mental status, unspecified
--- NOTE | 2025-01-29 21:40 | Electrocardiogram Report ---
Test Reason : Blood Pressure : */* mmHG Vent. Rate : 84 BPM Atrial Rate : 84 BPM P-R Int : 148 ms QRS Dur : 110 ms QT Int : 400 ms P-R-T Axes : 42 -55 68 degrees QTcB Int : 472 ms Sinus rhythm with Premature atrial complexes Left anterior fascicular block Moderate voltage criteria for LVH, may be normal variant ( R in aVL , Asad product ) Abnormal ECG When compared with ECG of 25-Jan-2025 11:52, Premature atrial complexes are now Present Confirmed by Jatinder Felton ([id number]) on 01/29/2025 9:40:01 PM Referred By: REFERRED SELF Confirmed By: Jatinder Felton
[2025-01-30] MEDS ORDERED: Nursing to Pharmacy Communication SCH (04:15)
[2025-01-30 07:49] LABS: Hematocrit (blood only) 37.1 % (42.0-52.0); Hemoglobin 12.2 g/dl (14.0-18.0); Mean Corpuscular Hemoglobin 30.4 pg (25.0-34.0); Mean Corpuscular Hgb Conc 32.9 g/dL (32.0-36.0); Mean Corpuscular Volume 92.5 fL (80.0-100.0); Mean Platelet Volume 9.3 fL (9.4-12.4); Platelet Count 304 K/uL (130-400); RDW Coefficient of Variation 12.8 % (11.5-14.5); RDW Standard Deviation 43.8 fL (36.4-46.3); Red Blood Count 4.01 M/uL (4.70-6.10); White Blood Count 14.13 K/ul (4.8-10.8)
[2025-01-30 08:09] LABS: BUN Creatinine Ratio 21.9 (10-20); Calcium 8.5 mg/dl (8.6-10.3); Creatinine Clr Calc Pharmacy 90.3 ml/min; Magnesium 2.3 mg/dl (1.7-2.4); Phosphorus 3.1 mg/dl (2.5-4.9); Potassium 3.9 mmol/L (3.5-5.1)
[2025-01-30] MEDS: lisinopril 5 MG TAB PO ONE (08:55)
--- NOTE | 2025-01-30 09:17 | Pharmacy Report ---
Pharmacy Glycemic Short Note 2 - Date of Service January 30, 2025 - Glycemic Short BSG Results (Last 24 hours): 01/29/25 01/29/25 01/29/25 11:32 16:28 20:17 Glucose POC Glucose 144 H 157 H 159 H 01/30/25 01/30/25 07:19 07:29 Glucose 140 H POC Glucose 132 H OUTPATIENT ANTIDIABETIC REGIMEN: * Tresiba 23 units SC HS * Novolog AC (0-12 units) per sliding scale HbA1c: * 7.3% (01/12/25) ASSESSMENT: 01/30: * Brandon received 18 units of insulin yesterday, 15 of which were basal. BSGs were: 750-321-749-159 mg/dL. * Fasting BSG this AM was 132 mg/dL. Patient did not eat much yesterday and did not eat breakfast this AM. Will continue to monitor PO intake, but for now, no changes to basal regimen. * No need for any change to Novolog as postprandials have mostly been c ontrolled. Remains on clear liquid diet. 01/28: * Blood sugars intermittently elevated yesterday * Will tighten Novolog and allow for increased basal insulin this evening * D5-1/2 NSS + 20 KCl @60 ml/hr initiated today 01/26: * MS is a 79 year old male admitted with altered mental status likely secondary to aspiration pneumonia, duodenitis, or UTI (patient does have history of vascular dementia). Patient recently discharged to SNF from [facility] on 01/20/25 following CVA * Originally NPO, but now ordered T2DM diet * Blood sugars reasonable thus far and will maintain current insulin regimen w/ basal scale this evening * Vancomycin discontinued due to negative MRSA nasal swab * Patient has history of recurrent falls, will utilize higher goal range to minimize risk of hypoglycemia PLAN FOR INPATIENT GLYCEMIC CONTROL: * Basal insulin * Lantus 15-20 units SC HS (see EHR for details) * Bolus insulin * NovoLog per scale ACHS or Q6hrs while NPO * Goal Range: Low 120 mg/dL - High 150 mg/dL * Correction Factor: 25 mg/dL/unit * Nutritional / Prandial insulin per carb ratio of 1 unit per 8 grams CHO consumed
[2025-01-30] MEDS: bisacodyL 10 MG SUPP PR ONE (16:41)
--- NOTE | 2025-01-30 18:41 | Hospitalist Progress Note ---
Date of Service January 30, 2025 Assessment & Plan (1) Aspiration pneumonia: (2) Altered mental status: Plan Per previous provider w/addendum #Pneumonia, possible healthcare associated possible Metabolic encephalopathy admitted to the hospital last month for recurrent falls, acute CVA CT chest: No evidence for pulmonary embolism. Occlusion of the right bronchus intermedius and distal left lower lobe segmental bronchus, resulting in postobstructive atelectasis. Additionally, there is an area of ill-defined low density material in the medial right lower lobe, concerning for aspiration pneumonia. 01/27 weaned off O2 supplement, currently on room air Afebrile Blood cultures: negative Sputum culture: Pending collection Nasal MRSA swab: Negative BioFire: Negative continue IV cefepime continue incentive spirometry, flutter valve, hypertonic saline nebs twice daily Pulm consulted, does not recommend bronchoscopy at this point speech therapist consulted Advanced to soft diet status post FEES study at bedside, No signs of aspiration Mild troponin elevation, likely secondary to demand ischemia from hypoxia Troponin 37.3, 38.4, 42.2, 14.9 --No cardiac symptoms Duodenitis -- seen on CT abdomen pelvis -- Denies abdominal pain No charis melena noted Continue Protonix for now Recent history CVA, w/history of previous CVA -- continue aspirin, atorvastatin, Plavix -PT/OT -family does not want to go back to the same rehab, SW consult to evaluate options on this front Episodes of nonsustained V. tach noted on telemetry Asymptomatic Check electrolytes -> found Hypokalemia Echocardiogram last month showing preserved EF, mild aortic stenosis Monitor K 2.9, replace and monitor Hypernatremia Na 146 4/9 AM, recheck 142-144 after ivf Na147 4/11 AM, will give IVF, and cont. to monitor cont. to monitor #IDDM -home dose insulin -monitor for ISS/basal bolus need #HtN, HLD -- blood pressure elevated, lisinopril added Monitor closely #MDD, vascular dementia #L carotid artery stenosis - continue home meds DVT prophylaxis Lovenox Disposition Patient's family prefers that patient be transition to home with home health services upon discharge Pt needs to be transferred between bed and chair or wheelchair to commode and without use of lift, pt would be confined to bed. The patient has a medical condition which requires positioning of the body in ways not feasible in an ordinary bed to alleviate pain and skin breakdown. Also to prevent aspiration given recent CVA, needs HOB elevated > 30 degrees most of the time. Admission and Anticipated Discharge Date Admission Date: January 25, 2025 Subjective Pt seen in follow-up for pneumonia with acute hypoxia, etc. Recently hospitalized for falls, found to have CVA currently lying in bed in NAD, barely opens eyes to voice/tactile stimuli, only answers some Per RN pt was able to take AM meds Pt's at the bedside and discussed with at length. Will continue to monitor Brandon over the weekend as he is not making much progress at this time and family is hopeful for discharge home denies cough, shortness of breath reported some abd. discomfort previous day that then resolved discussed w/RN at the bedside Review of Systems Review of Systems: All systems reviewed & are unremarkable except as noted in Subjective Physical Exam Physical Exam: General- WD/WN M in NAD, drowsy Neck- no JVD Lungs- mild crackles right base, clear on the left Heart- normal rate, regular rhythm; no murmurs Abdomen- normal bowel sounds, nondistended, soft, no tenderness Extremities- no pretibial edema left elbow: Resolving hematoma Left ankle: resolving hematoma Neuro- drowsy, opens eyes to voice and tactile stimuli, moves extremities Skin- warm & dry Results & Data Results & Data Vital Signs (Past 12 Hours) Vital Signs Temp Pulse Pulse Resp BP BP Pulse Ox 01/30/25 15:24 73 01/30/25 15:15 36.3 C L 65 18 159/79 H 93 01/30/25 11:30 63 01/30/25 11:30 01/30/25 11:09 36.3 C L 67 18 161/81 H 94 01/30/25 07:47 36.3 C L 61 18 180/83 H 176/93 H 94 01/30/25 07:30 69 16 95 O2 Del Method 01/30/25 15:24 01/30/25 15:15 Room Air 01/30/25 11:30 01/30/25 11:30 Room Air 01/30/25 11:09 Room Air 01/30/25 07:47 Room Air 01/30/25 07:30 Room Air Laboratory Results 01/30/25 01/30/25 01/30/25 Range/Units 16:33 11:38 07:29 WBC (4.8-10.8) K/ul RBC (4.70-6.10) M/uL Hgb (14.0-18.0) g/dl Hct (42.0-52.0) % MCV (80.0-100.0) fL MCH (25.0-34.0) pg MCHC (32.0-36.0) g/dL RDW Std Deviation (36.4-46.3) fL RDW Coeff of Nikita (11.5-14.5) % Plt Count (130-400) K/uL MPV (9.4-12.4) fL Sodium (136-145) mmol/L Potassium (3.5-5.1) mmol/L Chloride (98-107) mmol/L Carbon Dioxide (21-32) mmol/L Anion Gap (3-11) BUN (6-23) mg/dl Creatinine (0.6-1.4) mg/dl Est Cr Clr Drug Dosing ml/min eGFR BUN/Creatinine Ratio (10-20) Glucose (70-99(Fasting)) mg/dl POC Glucose 149 H 165 H 132 H (70-99) mg/dl Calcium (8.6-10.3) mg/dl Phosphorus (2.5-4.9) mg/dl Magnesium (1.7-2.4) mg/dl 01/30/25 01/29/25 Range/Units 07:19 20:17 WBC 14.13 H (4.8-10.8) K/ul RBC 4.01 L (4.70-6.10) M/uL Hgb 12.2 L (14.0-18.0) g/dl Hct 37.1 L (42.0-52.0) % MCV 92.5 (80.0-100.0) fL MCH 30.4 (25.0-34.0) pg MCHC 32.9 (32.0-36.0) g/dL RDW Std Deviation 43.8 (36.4-46.3) fL RDW Coeff of Nikita 12.8 (11.5-14.5) % Plt Count 304 (130-400) K/uL MPV 9.3 L (9.4-12.4) fL Sodium 147 H (136-145) mmol/L Potassium 3.9 (3.5-5.1) mmol/L Chloride 112 H (98-107) mmol/L Carbon Dioxide 31 (21-32) mmol/L Anion Gap 4 (3-11) BUN 16 (6-23) mg/dl Creatinine 0.73 (0.6-1.4) mg/dl Est Cr Clr Drug Dosing 90.3 ml/min eGFR 93.71 BUN/Creatinine Ratio 21.9 H (10-20) Glucose 140 H (70-99(Fasting)) mg/dl POC Glucose 159 H (70-99) mg/dl Calcium 8.5 L (8.6-10.3) mg/dl Phosphorus 3.1 (2.5-4.9) mg/dl Magnesium 2.3 (1.7-2.4) mg/dl Medications Administered Current Inpatient Medications Acetaminophen (Acetaminophen 325 Mg Tab) 650 mg PO Q4H PRN PRN Reason: Pain or Fever Stop: 02/24/25 15:43 Amoxicillin/Clavulanate Potassium (Amoxicillin/Clavulanate 875 Mg Tab) 1 tab PO BIDM [facility]; Protocol Stop: 02/05/25 07:59 Aspirin (Aspirin 81 Mg Ectab) 81 mg PO DAILY [facility] Stop: 02/25/25 08:59 Last Admin: 01/30/25 08:09 Dose: 81 mg Atorvastatin Calcium (Atorvastatin 40 Mg Tab) 80 mg PO DAILY [facility] Stop: 02/25/25 08:59 Last Admin: 01/30/25 08:10 Dose: 80 mg Clopidogrel Bisulfate (Clopidogrel Bisulfate 75 Mg Tab) 75 mg PO DAILY [facility] Stop: 02/25/25 08:59 Last Admin: 01/30/25 08:10 Dose: 75 mg Dextrose (Dextrose 50% 50 Ml Syringe) 25 - 50 ml IV UD PRN; Protocol PRN Reason: Hypoglycemia Protocol Stop: 02/24/25 15:53 Enoxaparin Sodium (Enoxaparin Inj 40 Mg/0.4 Ml Syr) 40 mg SQ Q24H [facility] Stop: 02/25/25 17:29 Last Admin: 01/30/25 16:41 Dose: 40 mg Folic Acid (Folic Acid 400 Mcg Tab) 800 mcg PO DAILY [facility] Stop: 02/25/25 08:59 Last Admin: 01/30/25 08:10 Dose: 800 mcg Glucagon (Glucagon For Inj 1 Mg Vial) 1 mg SQ UD PRN; Protocol PRN Reason: Hypoglycemia Protocol Stop: 02/24/25 15:53 Glucose (Glucose 40% Gel 15 Gm Tube) 15 - 30 gm PO UD PRN; Protocol PRN Reason: Hypoglycemia Protocol Stop: 02/24/25 15:53 Glucose (Glucose 10 Tab/Tube) 4 - 8 tab PO UD PRN; Protocol PRN Reason: Hypoglycemia Protocol Stop: 02/24/25 15:53 Pantoprazole Sodium (Protonix) 40 mg in 10 mls @ 5 mls/min IV Q12H [facility] Stop: 02/25/25 08:59 Last Admin: 01/30/25 08:09 Dose: 5 mls/min Cefepime HCl (Maxipime 2000mg) 2,000 mg in 20 mls @ 5 mls/min IV Q8H [facility]; Protocol Stop: 02/02/25 08:29 Last Admin: 01/30/25 12:40 Dose: 5 mls/min Potassium Chloride/Dextrose/Sod Cl (D5w And 1/2nss + 20meq Kcl) 20 meq in 1,000 mls @ 60 mls/hr IV .[id number] [facility] Stop: 01/31/25 18:44 Insulin Aspart (Insulin Aspart Per Unit Charge) 0 units SC [facility] Stop: 02/25/25 11:29 Last Admin: 01/30/25 17:31 Dose: 4 units Insulin Glargine (Lantus Per Unit Charge) 0 units SC HS [facility]; Protocol Stop: 02/25/25 20:59 Last Admin: 01/29/25 22:01 Dose: 15 units Lactobacillus Acidophilus (Advanced Probiotic 625 Mg Capsule) 1,250 mg PO DAILY [facility] Stop: 02/25/25 08:59 Last Admin: 01/30/25 08:10 Dose: 1,250 mg Lisinopril (Lisinopril 5 Mg Tab) 5 mg PO HS [facility] Stop: 02/27/25 20:59 Last Admin: 01/29/25 22:04 Dose: Not Given Magnesium Oxide (Magnesium Oxide 400 Mg Tab) 200 mg PO DAILY [facility] Stop: 02/25/25 08:59 Last Admin: 01/30/25 08:10 Dose: 200 mg Miscellaneous (Carbohydrates For Hypoglycemia ) 15 - 30 gm PO UD PRN PRN Reason: Hypoglycemia Protocol Stop: 02/24/25 15:53 Miscellaneous Information (Pharmacy Glycemic Mgmt Consult) 1 each N/A UD PRN PRN Reason: Consult Stop: 02/24/25 15:53 Ondansetron HCl (Ondansetron Inj 2 Mg/Ml 2 Ml Vial) 4 mg IV Q6H PRN PRN Reason: Nausea Stop: 02/24/25 15:43 Simethicone (Simethicone 40 Mg/0.6 Ml 30ml) 80 mg PO Q6H PRN PRN Reason: Flatulence Stop: 02/27/25 17:43 Sodium Chloride (Sodium Chlor 7% 4 Ml Neb) 4 ml NEB BIDR [facility] Stop: 02/26/25 10:19 Last Admin: 01/30/25 07:29 Dose: 4 ml Vitamin D (Cholecalciferol 25 Mcg (1000 Units) Tab) 25 mcg PO DAILY [facility] Stop: 02/25/25 08:59 Last Admin: 01/30/25 08:10 Dose: 25 mcg Vitamin E (Tocopheryl, Dl-Alpha 100 Units 45 Mg Cap) 180 mg PO DAILY [facility] Stop: 02/25/25 08:59 Last Admin: 01/30/25 08:09 Dose: 180 mg Zinc Sulfate (Zinc Sulfate 220 Mg Capsule) 220 mg PO DAILY [facility] Stop: 02/25/25 08:59 Last Admin: 01/30/25 08:09 Dose: 220 mg (2) Altered mental status Altered mental status type: unspecified Qualified Code(s): R41.82 - Altered mental status, unspecified
[2025-01-30] MEDS: D5W AND 1/2NSS + 20MEQ KCL 20 MEQ/1,000 ML BAG IV SCH (20:54)
[2025-01-31 08:26] LABS: Hematocrit (blood only) 39.2 % (42.0-52.0); Hemoglobin 13.1 g/dl (14.0-18.0); Mean Corpuscular Hemoglobin 30.3 pg (25.0-34.0); Mean Corpuscular Hgb Conc 33.4 g/dL (32.0-36.0); Mean Corpuscular Volume 90.5 fL (80.0-100.0); Mean Platelet Volume 9.5 fL (9.4-12.4); Platelet Count 340 K/uL (130-400); RDW Coefficient of Variation 12.4 % (11.5-14.5); RDW Standard Deviation 41.1 fL (36.4-46.3); Red Blood Count 4.33 M/uL (4.70-6.10); White Blood Count 12.76 K/ul (4.8-10.8)
[2025-01-31] MEDS: AMOXICILLIN/CLAVULANATE 875 MG TAB PO SCH (08:38)
[2025-01-31 08:43] LABS: BUN Creatinine Ratio 18.9 (10-20); Calcium 8.4 mg/dl (8.6-10.3); Creatinine Clr Calc Pharmacy 124.3 ml/min; Magnesium 2.2 mg/dl (1.7-2.4); Phosphorus 2.6 mg/dl (2.5-4.9); Potassium 3.5 mmol/L (3.5-5.1)
--- NOTE | 2025-01-31 14:14 | Hospitalist Progress Note ---
Date of Service January 31, 2025 Assessment & Plan (1) Aspiration pneumonia: (2) Altered mental status: Plan Per previous provider w/addendum #Pneumonia, possible healthcare associated possible Metabolic encephalopathy admitted to the hospital last month for recurrent falls, acute CVA CT chest: No evidence for pulmonary embolism. Occlusion of the right bronchus intermedius and distal left lower lobe segmental bronchus, resulting in postobstructive atelectasis. Additionally, there is an area of ill-defined low density material in the medial right lower lobe, concerning for aspiration pneumonia. 01/27 weaned off O2 supplement, currently on room air Afebrile Blood cultures: negative Sputum culture: Pending collection Nasal MRSA swab: Negative BioFire: Negative continue IV cefepime continue incentive spirometry, flutter valve, hypertonic saline nebs twice daily Pulm consulted, does not recommend bronchoscopy at this point speech therapist consulted Advanced to soft diet status post FEES study at bedside, No signs of aspiration Mild troponin elevation, likely secondary to demand ischemia from hypoxia Troponin 37.3, 38.4, 42.2, 14.9 --No cardiac symptoms Duodenitis -- seen on CT abdomen pelvis -- Denies abdominal pain No charis melena noted Continue Protonix for now Recent history CVA, w/history of previous CVA -- continue aspirin, atorvastatin, Plavix -PT/OT -family does not want to go back to the same rehab, SW consult to evaluate options on this front Episodes of nonsustained V. tach noted on telemetry Asymptomatic Check electrolytes -> found Hypokalemia Echocardiogram last month showing preserved EF, mild aortic stenosis Monitor K 2.9, replace and monitor Hypernatremia Na 146 4/9 AM, recheck 142-144 after ivf Na 147 4/11 AM, will give IVF, and cont. to monitor cont. to monitor #IDDM -home dose insulin -monitor for ISS/basal bolus need #HtN, HLD -- blood pressure elevated, lisinopril added Monitor closely #MDD, vascular dementia #L carotid artery stenosis - continue home meds DVT prophylaxis Lovenox Disposition Patient's family prefers that patient be transition to home with home health services upon discharge --> discussed w/ pt's on 01/31 - taking pt home may not be a good option, and re-thinking SNF again , will need to discuss with CM Pt needs to be transferred between bed and chair or wheelchair to [facility] and without use of lift, pt would be confined to bed. The patient has a medical condition which requires positioning of the body in ways not feasible in an ordinary bed to alleviate pain and skin breakdown. Also to prevent aspiration given recent CVA, needs HOB elevated > 30 degrees most of the time. Admission and Anticipated Discharge Date Admission Date: January 25, 2025 Subjective Pt seen in follow-up for pneumonia with acute hypoxia, etc. Recently hospitalized for falls, found to have CVA currently lying in bed in NAD, more responsive today.opens his eyes answers simple questions. Family present at the bedside denies cough, shortness of breath, chest pain or abd. pain Review of Systems Review of Systems: All systems reviewed & are unremarkable except as noted in Subjective Physical Exam Physical Exam: General- WD/WN M in NAD, drowsy Neck- no JVD Lungs- decreased breath sounds Heart- normal rate, regular rhythm; no murmurs Abdomen- normal bowel sounds, nondistended, soft, no tenderness Extremities- no pretibial edema left elbow: Resolving hematoma Left ankle: resolving hematoma Neuro- drowsy, but opens eyes to voice, answers appropriately, moves extremities Skin- warm & dry Results & Data Results & Data Vital Signs (Past 12 Hours) Vital Signs Temp Pulse Resp BP Pulse Ox O2 Del Method 01/31/25 07:45 Room Air 01/31/25 07:28 36.5 C 64 18 177/95 H 99 Room Air 01/31/25 07:11 68 18 99 Room Air 01/31/25 03:06 36.7 C 77 18 126/88 96 Room Air Laboratory Results 01/31/25 01/31/25 01/31/25 Range/Units 11:06 07:46 07:29 WBC 12.76 H (4.8-10.8) K/ul RBC 4.33 L (4.70-6.10) M/uL Hgb 13.1 L (14.0-18.0) g/dl Hct 39.2 L (42.0-52.0) % MCV 90.5 (80.0-100.0) fL MCH 30.3 (25.0-34.0) pg MCHC 33.4 (32.0-36.0) g/dL RDW Std Deviation 41.1 (36.4-46.3) fL RDW Coeff of Nikita 12.4 (11.5-14.5) % Plt Count 340 (130-400) K/uL MPV 9.5 (9.4-12.4) fL Sodium 145 (136-145) mmol/L Potassium 3.5 (3.5-5.1) mmol/L Chloride 110 H (98-107) mmol/L Carbon Dioxide 31 (21-32) mmol/L Anion Gap 4 (3-11) BUN 10 (6-23) mg/dl Creatinine 0.53 L (0.6-1.4) mg/dl Est Cr Clr Drug Dosing 124.3 ml/min eGFR 103.22 BUN/Creatinine Ratio 18.9 (10-20) Glucose 155 H (70-99(Fasting)) mg/dl POC Glucose 230 H 144 H (70-99) mg/dl Calcium 8.4 L (8.6-10.3) mg/dl Phosphorus 2.6 (2.5-4.9) mg/dl Magnesium 2.2 (1.7-2.4) mg/dl 01/30/25 01/30/25 Range/Units 20:21 16:33 WBC (4.8-10.8) K/ul RBC (4.70-6.10) M/uL Hgb (14.0-18.0) g/dl Hct (42.0-52.0) % MCV (80.0-100.0) fL MCH (25.0-34.0) pg MCHC (32.0-36.0) g/dL RDW Std Deviation (36.4-46.3) fL RDW Coeff of Nikita (11.5-14.5) % Plt Count (130-400) K/uL MPV (9.4-12.4) fL Sodium (136-145) mmol/L Potassium (3.5-5.1) mmol/L Chloride (98-107) mmol/L Carbon Dioxide (21-32) mmol/L Anion Gap (3-11) BUN (6-23) mg/dl Creatinine (0.6-1.4) mg/dl Est Cr Clr Drug Dosing ml/min eGFR BUN/Creatinine Ratio (10-20) Glucose (70-99(Fasting)) mg/dl POC Glucose 187 H 149 H (70-99) mg/dl Calcium (8.6-10.3) mg/dl Phosphorus (2.5-4.9) mg/dl Magnesium (1.7-2.4) mg/dl Medications Administered Current Inpatient Medications Acetaminophen (Acetaminophen 325 Mg Tab) 650 mg PO Q4H PRN PRN Reason: Pain or Fever Stop: 02/24/25 15:43 Amoxicillin/Clavulanate Potassium (Amoxicillin/Clavulanate 875 Mg Tab) 1 tab [facility]M [facility]; Protocol Stop: 02/05/25 07:59 Last Admin: 01/31/25 08:38 Dose: 1 tab Aspirin (Aspirin 81 Mg Ectab) 81 mg PO DAILY [facility] Stop: 02/25/25 08:59 Last Admin: 01/31/25 08:38 Dose: 81 mg Atorvastatin Calcium (Atorvastatin 40 Mg Tab) 80 mg PO DAILY [facility] Stop: 02/25/25 08:59 Last Admin: 01/31/25 08:39 Dose: 80 mg Clopidogrel Bisulfate (Clopidogrel Bisulfate 75 Mg Tab) 75 mg PO DAILY [facility] Stop: 02/25/25 08:59 Last Admin: 01/31/25 08:39 Dose: 75 mg Dextrose (Dextrose 50% 50 Ml Syringe) 25 - 50 ml IV UD PRN; Protocol PRN Reason: Hypoglycemia Protocol Stop: 02/24/25 15:53 Enoxaparin Sodium (Enoxaparin Inj 40 Mg/0.4 Ml Syr) 40 mg SQ Q24H [facility] Stop: 02/25/25 17:29 Last Admin: 01/30/25 16:41 Dose: 40 mg Folic Acid (Folic Acid 400 Mcg Tab) 800 mcg PO DAILY [facility] Stop: 02/25/25 08:59 Last Admin: 01/31/25 08:43 Dose: 800 mcg Glucagon (Glucagon For Inj 1 Mg Vial) 1 mg SQ UD PRN; Protocol PRN Reason: Hypoglycemia Protocol Stop: 02/24/25 15:53 Glucose (Glucose 40% Gel 15 Gm Tube) 15 - 30 gm PO UD PRN; Protocol PRN Reason: Hypoglycemia Protocol Stop: 02/24/25 15:53 Glucose (Glucose 10 Tab/Tube) 4 - 8 tab PO UD PRN; Protocol PRN Reason: Hypoglycemia Protocol Stop: 02/24/25 15:53 Pantoprazole Sodium (Protonix) 40 mg in 10 mls @ 5 mls/min IV Q12H [facility] Stop: 02/25/25 08:59 Last Admin: 01/31/25 08:33 Dose: 5 mls/min Potassium Chloride/Dextrose/Sod Cl (D5w And 1/2nss + 20meq Kcl) 20 meq in 1,000 mls @ 60 mls/hr IV .[id number] [facility] Stop: 01/31/25 18:44 Last Admin: 01/31/25 12:53 Dose: 60 mls/hr Insulin Aspart (Insulin Aspart Per Unit Charge) 0 units SC ACHS [facility] Stop: 02/25/25 11:29 Last Admin: 01/31/25 11:53 Dose: 6 units Insulin Glargine (Lantus Per Unit Charge) 0 units SC [facility]; Protocol Stop: 02/25/25 20:59 Last Admin: 01/30/25 20:53 Dose: 15 units Lactobacillus Acidophilus (Advanced Probiotic 625 Mg Capsule) 1,250 mg PO DAILY [facility] Stop: 02/25/25 08:59 Last Admin: 01/31/25 08:44 Dose: 1,250 mg Lisinopril (Lisinopril 5 Mg Tab) 5 mg PO [facility] Stop: 02/27/25 20:59 Last Admin: 01/30/25 22:53 Dose: Not Given Magnesium Oxide (Magnesium Oxide 400 Mg Tab) 200 mg PO DAILY [facility] Stop: 02/25/25 08:59 Last Admin: 01/31/25 08:44 Dose: 200 mg Miscellaneous (Carbohydrates For Hypoglycemia ) 15 - 30 gm PO UD PRN PRN Reason: Hypoglycemia Protocol Stop: 02/24/25 15:53 Miscellaneous Information (Pharmacy Glycemic Mgmt Consult) 1 each N/A UD PRN PRN Reason: Consult Stop: 02/24/25 15:53 Ondansetron HCl (Ondansetron Inj 2 Mg/Ml 2 Ml Vial) 4 mg IV Q6H PRN PRN Reason: Nausea Stop: 02/24/25 15:43 Simethicone (Simethicone 40 Mg/0.6 Ml 30ml) 80 mg PO Q6H PRN PRN Reason: Flatulence Stop: 02/27/25 17:43 Sodium Chloride (Sodium Chlor 7% 4 Ml Neb) 4 ml NEB BIDR [facility] Stop: 02/26/25 10:19 Last Admin: 01/31/25 07:10 Dose: 4 ml Vitamin D (Cholecalciferol 25 Mcg (1000 Units) Tab) 25 mcg PO DAILY [facility] Stop: 02/25/25 08:59 Last Admin: 01/31/25 08:43 Dose: 25 mcg Vitamin E (Tocopheryl, Dl-Alpha 100 Units 45 Mg Cap) 180 mg PO DAILY [facility] Stop: 02/25/25 08:59 Last Admin: 01/31/25 08:42 Dose: 180 mg Zinc Sulfate (Zinc Sulfate 220 Mg Capsule) 220 mg PO DAILY [facility] Stop: 02/25/25 08:59 Last Admin: 01/31/25 08:44 Dose: 220 mg (2) Altered mental status Altered mental status type: unspecified Qualified Code(s): R41.82 - Altered mental status, unspecified
[2025-01-31] MEDS: POTASSIUM CHLORIDE CRTAB 20 MEQ TABCR PO ONE (15:58)
[2025-01-31] MEDS: THIAMINE HCL 100 MG TAB PO SCH (16:05)
[2025-01-31] MEDS: guaiFENesin 600 MG TABCR PO SCH (16:05)
[2025-01-31] MEDS: PANTOprazole 40 MG TAB PO SCH (21:51)
[2025-02-01 07:12] LABS: Hematocrit (blood only) 36.2 % (42.0-52.0); Hemoglobin 12.3 g/dl (14.0-18.0); Mean Corpuscular Hemoglobin 31.1 pg (25.0-34.0); Mean Corpuscular Volume 91.4 fL (80.0-100.0); Mean Platelet Volume 9.5 fL (9.4-12.4); Platelet Count 327 K/uL (130-400); RDW Standard Deviation 40.5 fL (36.4-46.3); Red Blood Count 3.96 M/uL (4.70-6.10)
[2025-02-01 07:30] LABS: BUN Creatinine Ratio 11.4 (10-20); Calcium 8.1 mg/dl (8.6-10.3); Creatinine Clr Calc Pharmacy 94.1 ml/min; Phosphorus 2.6 mg/dl (2.5-4.9); Potassium 3.7 mmol/L (3.5-5.1)
--- NOTE | 2025-02-01 08:01 | Hospitalist Progress Note ---
Date of Service February 01, 2025 Assessment & Plan (1) Aspiration pneumonia: (2) Altered mental status: Plan Per previous provider w/addendum #Pneumonia, possible healthcare associated possible Metabolic encephalopathy admitted to the hospital last month for recurrent falls, acute CVA CT chest: No evidence for pulmonary embolism. Occlusion of the right bronchus intermedius and distal left lower lobe segmental bronchus, resulting in postobstructive atelectasis. Additionally, there is an area of ill-defined low density material in the medial right lower lobe, concerning for aspiration pneumonia. 01/27 weaned off O2 supplement, currently on room air Afebrile Blood cultures: negative Sputum culture: Pending collection Nasal MRSA swab: Negative BioFire: Negative continue IV cefepime continue incentive spirometry, flutter valve, hypertonic saline nebs twice daily Pulm consulted, does not recommend bronchoscopy at this point speech therapist consulted Advanced to soft diet status post FEES study at bedside, No signs of aspiration Mild troponin elevation, likely secondary to demand ischemia from hypoxia Troponin 37.3, 38.4, 42.2, 14.9 --No cardiac symptoms Duodenitis -- seen on CT abdomen pelvis -- Denies abdominal pain No charis melena noted Continue Protonix for now Recent history CVA, w/history of previous CVA -- continue aspirin, atorvastatin, Plavix -PT/OT -family does not want to go back to the same rehab, SW consult to evaluate options on this front Episodes of nonsustained V. tach noted on telemetry Asymptomatic Check electrolytes -> found Hypokalemia Echocardiogram last month showing preserved EF, mild aortic stenosis Monitor K 2.9, replace and monitor Hypernatremia Na 146 4/9 AM, recheck 142-144 after ivf Na 147 4/11 AM, will give IVF, and cont. to monitor cont. to monitor #IDDM -home dose insulin -monitor for ISS/basal bolus need #HtN, HLD -- blood pressure elevated, lisinopril added Monitor closely #MDD, vascular dementia #L carotid artery stenosis - continue home meds DVT prophylaxis Lovenox Disposition Patient's family prefers that patient be transition to home with home health services upon discharge --> discussed w/ pt's on 01/31 - taking pt home may not be a good option, and re-thinking SNF again , will need to discuss with CM, CM notified Pt needs to be transferred between bed and chair or wheelchair to commode and without use of lift, pt would be confined to bed. The patient has a medical condition which requires positioning of the body in ways not feasible in an ordinary bed to alleviate pain and skin breakdown. Also to prevent aspiration given recent CVA, needs HOB elevated > 30 degrees most of the time. Admission and Anticipated Discharge Date Admission Date: January 25, 2025 Subjective Pt seen in follow-up for pneumonia with acute hypoxia, etc. Recently hospitalized for falls, found to have CVA currently lying in bed in NAD, more responsive today and yesterday.opens his eyes answers simple questions. Family present at the bedside denies cough, shortness of breath, chest pain or abd. pain Discussed w/ - may not be able to take care of him at home - will notify CM to help with DC plan Review of Systems Review of Systems: All systems reviewed & are unremarkable except as noted in Subjective Physical Exam Physical Exam: General- WD/WN M in NAD Neck- no JVD Lungs- decreased breath sounds Heart- normal rate, regular rhythm; no murmurs Abdomen- normal bowel sounds, nondistended, soft, no tenderness Extremities- no pretibial edema left elbow: Resolving hematoma Left ankle: resolving hematoma Neuro- keeps his eyes closed most of the time but opens eyes to voice, answers appropriately, moves extremities Skin- warm & dry Results & Data Results & Data Vital Signs (Past 12 Hours) Vital Signs Temp Pulse Pulse Resp BP Pulse Ox O2 Del Method 02/01/25 07:28 36.5 C 70 18 154/81 H 95 Room Air 02/01/25 07:19 72 16 97 Room Air 02/01/25 03:27 36.3 C L 70 18 160/50 H 98 Room Air 02/01/25 00:49 75 01/31/25 23:02 36.6 C 88 16 143/68 H 94 Room Air Laboratory Results 02/01/25 02/01/25 01/31/25 Range/Units 07:24 06:33 20:13 WBC 14.00 H (4.8-10.8) K/ul RBC 3.96 L (4.70-6.10) M/uL Hgb 12.3 L (14.0-18.0) g/dl Hct 36.2 L (42.0-52.0) % MCV 91.4 (80.0-100.0) fL MCH 31.1 (25.0-34.0) pg MCHC 34.0 (32.0-36.0) g/dL RDW Std Deviation 40.5 (36.4-46.3) fL RDW Coeff of Nikita 12.0 (11.5-14.5) % Plt Count 327 (130-400) K/uL MPV 9.5 (9.4-12.4) fL Sodium 141 (136-145) mmol/L Potassium 3.7 (3.5-5.1) mmol/L Chloride 106 (98-107) mmol/L Carbon Dioxide 31 (21-32) mmol/L Anion Gap 4 (3-11) BUN 8 (6-23) mg/dl Creatinine 0.70 (0.6-1.4) mg/dl Est Cr Clr Drug Dosing 94.1 ml/min eGFR 94.90 BUN/Creatinine Ratio 11.4 (10-20) Glucose 151 H (70-99(Fasting)) mg/dl POC Glucose 155 H 226 H (70-99) mg/dl Calcium 8.1 L (8.6-10.3) mg/dl Phosphorus 2.6 (2.5-4.9) mg/dl Magnesium 2.0 (1.7-2.4) mg/dl 01/31/25 01/31/25 01/31/25 Range/Units 16:30 11:06 07:46 WBC 12.76 H (4.8-10.8) K/ul RBC 4.33 L (4.70-6.10) M/uL Hgb 13.1 L (14.0-18.0) g/dl Hct 39.2 L (42.0-52.0) % MCV 90.5 (80.0-100.0) fL MCH 30.3 (25.0-34.0) pg MCHC 33.4 (32.0-36.0) g/dL RDW Std Deviation 41.1 (36.4-46.3) fL RDW Coeff of Nikita 12.4 (11.5-14.5) % Plt Count 340 (130-400) K/uL MPV 9.5 (9.4-12.4) fL Sodium 145 (136-145) mmol/L Potassium 3.5 (3.5-5.1) mmol/L Chloride 110 H (98-107) mmol/L Carbon Dioxide 31 (21-32) mmol/L Anion Gap 4 (3-11) BUN 10 (6-23) mg/dl Creatinine 0.53 L (0.6-1.4) mg/dl Est Cr Clr Drug Dosing 124.3 ml/min eGFR 103.22 BUN/Creatinine Ratio 18.9 (10-20) Glucose 155 H (70-99(Fasting)) mg/dl POC Glucose 192 H 230 H (70-99) mg/dl Calcium 8.4 L (8.6-10.3) mg/dl Phosphorus 2.6 (2.5-4.9) mg/dl Magnesium 2.2 (1.7-2.4) mg/dl Medications Administered Current Inpatient Medications Acetaminophen (Acetaminophen 325 Mg Tab) 650 mg PO Q4H PRN PRN Reason: Pain or Fever Stop: 02/24/25 15:43 Amoxicillin/Clavulanate Potassium (Amoxicillin/Clavulanate 875 Mg Tab) 1 tab PO BIDM [facility]; Protocol Stop: 02/05/25 07:59 Last Admin: 01/31/25 17:24 Dose: 1 tab Aspirin (Aspirin 81 Mg Ectab) 81 mg PO DAILY [facility] Stop: 02/25/25 08:59 Last Admin: 01/31/25 08:38 Dose: 81 mg Atorvastatin Calcium (Atorvastatin 40 Mg Tab) 80 mg PO DAILY [facility] Stop: 02/25/25 08:59 Last Admin: 01/31/25 08:39 Dose: 80 mg Clopidogrel Bisulfate (Clopidogrel Bisulfate 75 Mg Tab) 75 mg PO DAILY [facility] Stop: 02/25/25 08:59 Last Admin: 01/31/25 08:39 Dose: 75 mg Dextrose (Dextrose 50% 50 Ml Syringe) 25 - 50 ml IV UD PRN; Protocol PRN Reason: Hypoglycemia Protocol Stop: 02/24/25 15:53 Enoxaparin Sodium (Enoxaparin Inj 40 Mg/0.4 Ml Syr) 40 mg SQ Q24H [facility] Stop: 02/25/25 17:29 Last Admin: 01/31/25 17:24 Dose: 40 mg Folic Acid (Folic Acid 400 Mcg Tab) 800 mcg PO DAILY [facility] Stop: 02/25/25 08:59 Last Admin: 01/31/25 08:43 Dose: 800 mcg Glucagon (Glucagon For Inj 1 Mg Vial) 1 mg SQ UD PRN; Protocol PRN Reason: Hypoglycemia Protocol Stop: 02/24/25 15:53 Glucose (Glucose 40% Gel 15 Gm Tube) 15 - 30 gm PO UD PRN; Protocol PRN Reason: Hypoglycemia Protocol Stop: 02/24/25 15:53 Glucose (Glucose 10 Tab/Tube) 4 - 8 tab PO UD PRN; Protocol PRN Reason: Hypoglycemia Protocol Stop: 02/24/25 15:53 Guaifenesin (Guaifenesin 600 Mg Tabcr) 600 mg PO Q12 [facility] Stop: 03/02/25 14:29 Last Admin: 01/31/25 21:51 Dose: 600 mg Insulin Aspart (Insulin Aspart Per Unit Charge) 0 units SC ACHS [facility] Stop: 02/25/25 11:29 Last Admin: 01/31/25 21:52 Dose: 7 units Insulin Glargine (Lantus Per Unit Charge) 23 units SC HS [facility] Stop: 03/03/25 20:59 Lactobacillus Acidophilus (Advanced Probiotic 625 Mg Capsule) 1,250 mg PO DAILY [facility] Stop: 02/25/25 08:59 Last Admin: 01/31/25 08:44 Dose: 1,250 mg Lisinopril (Lisinopril 5 Mg Tab) 5 mg PO HS [facility] Stop: 02/27/25 20:59 Last Admin: 01/31/25 21:51 Dose: 5 mg Magnesium Oxide (Magnesium Oxide 400 Mg Tab) 200 mg PO DAILY [facility] Stop: 02/25/25 08:59 Last Admin: 01/31/25 08:44 Dose: 200 mg Miscellaneous (Carbohydrates For Hypoglycemia ) 15 - 30 gm PO UD PRN PRN Reason: Hypoglycemia Protocol Stop: 02/24/25 15:53 Miscellaneous Information (Pharmacy Glycemic Mgmt Consult) 1 each N/A UD PRN PRN Reason: Consult Stop: 02/24/25 15:53 Ondansetron HCl (Ondansetron Inj 2 Mg/Ml 2 Ml Vial) 4 mg IV Q6H PRN PRN Reason: Nausea Stop: 02/24/25 15:43 Pantoprazole Sodium (Pantoprazole 40 Mg Tab) 40 mg PO BID [facility] Stop: 03/02/25 20:59 Last Admin: 01/31/25 21:51 Dose: 40 mg Simethicone (Simethicone 40 Mg/0.6 Ml 30ml) 80 mg PO Q6H PRN PRN Reason: Flatulence Stop: 02/27/25 17:43 Sodium Chloride (Sodium Chlor 7% 4 Ml Neb) 4 ml NEB BIDR [facility] Stop: 02/26/25 10:19 Last Admin: 02/01/25 07:18 Dose: 4 ml Thiamine HCl (Thiamine Hcl 100 Mg Tab) 100 mg PO QAM [facility] Stop: 03/02/25 14:44 Last Admin: 01/31/25 16:05 Dose: 100 mg Vitamin D (Cholecalciferol 25 Mcg (1000 Units) Tab) 25 mcg PO DAILY [facility] Stop: 02/25/25 08:59 Last Admin: 01/31/25 08:43 Dose: 25 mcg Zinc Sulfate (Zinc Sulfate 220 Mg Capsule) 220 mg PO DAILY [facility] Stop: 02/25/25 08:59 Last Admin: 01/31/25 08:44 Dose: 220 mg (2) Altered mental status Altered mental status type: unspecified Qualified Code(s): R41.82 - Altered mental status, unspecified
[2025-02-01] MEDS: POTASSIUM CHLORIDE CRTAB 20 MEQ TABCR PO STA (08:34)
[2025-02-01] MEDS: LANTUS PER UNIT CHARGE SC SCH (21:27)
[2025-02-02 06:42] LABS: Hematocrit (blood only) 35.8 % (42.0-52.0); Hemoglobin 12.5 g/dl (14.0-18.0); Mean Corpuscular Hemoglobin 31.5 pg (25.0-34.0); Mean Corpuscular Hgb Conc 34.9 g/dL (32.0-36.0); Mean Corpuscular Volume 90.2 fL (80.0-100.0); Mean Platelet Volume 9.4 fL (9.4-12.4); Platelet Count 342 K/uL (130-400); RDW Coefficient of Variation 12.2 % (11.5-14.5); RDW Standard Deviation 40.7 fL (36.4-46.3); Red Blood Count 3.97 M/uL (4.70-6.10); White Blood Count 12.78 K/ul (4.8-10.8)
[2025-02-02 07:03] LABS: BUN Creatinine Ratio 13.4 (10-20); Calcium 8.3 mg/dl (8.6-10.3); Creatinine Clr Calc Pharmacy 98.3 ml/min; Magnesium 2.1 mg/dl (1.7-2.4); Potassium 3.8 mmol/L (3.5-5.1)
--- NOTE | 2025-02-02 09:53 | Pharmacy Report ---
Pharmacy Glycemic Short Note 2 - Date of Service February 02, 2025 - Glycemic Short BSG Results (Last 24 hours): 02/01/25 02/01/25 02/01/25 10:52 16:15 20:02 Glucose POC Glucose 123 H 144 H 181 H 02/02/25 02/02/25 05:57 07:36 Glucose 106 H POC Glucose 102 H OUTPATIENT ANTIDIABETIC REGIMEN: * Tresiba 23 units SC HS * Novolog AC (0-12 units) per sliding scale HbA1c: * 7.3% (01/12/25) ASSESSMENT: 02/02/25: * Blood sugars reasonably controlled yesterday, ranging 123-181 mg/dL * Received 41 units of insulin (23 units of basal and 18 units of prandial/correctional bolus) * Diet advanced to T2DM 01/30: * Brandon received 18 units of insulin yesterday, 15 of which were basal. BSGs were: [phone] mg/dL. * Fasting BSG this AM was 132 mg/dL. Patient did not eat much yesterday and did not eat breakfast this AM. Will continue to monitor PO intake, but for now, no changes to basal regimen. * No need for any change to Novolog as postprandials have mostly been cont rolled. Remains on clear liquid diet. 01/28: * Blood sugars intermittently elevated yesterday * Will tighten Novolog and allow for increased basal insulin this evening * D5-1/2 NSS + 20 KCl @60 ml/hr initiated today 01/26: * MS is a 79 year old male admitted with altered mental status likely secondary to aspiration pneumonia, duodenitis, or UTI (patient does have history of vascular dementia). Patient recently discharged to SNF from [facility] on 01/20/25 following CVA * Originally NPO, but now ordered T2DM diet * Blood sugars reasonable thus far and will maintain current insulin regimen w/ basal scale this evening * Vancomycin discontinued due to negative MRSA nasal swab * Patient has history of recurrent falls, will utilize higher goal range to minimize risk of hypoglycemia PLAN FOR INPATIENT GLYCEMIC CONTROL: * Basal insulin - decrease * Lantus 20 units SC HS * Bolus insulin * NovoLog per scale ACHS or Q6hrs while NPO * Goal Range: Low 120 mg/dL - High 150 mg/dL * Correction Factor: 20 mg/dL/unit * Nutritional / Prandial insulin per carb ratio of 1 unit per 6 grams CHO consumed
--- NOTE | 2025-02-02 17:00 | Hospitalist Progress Note ---
Date of Service February 02, 2025 Assessment & Plan (1) Aspiration pneumonia: (2) Altered mental status: Plan Pneumonia, possible healthcare associated possible Metabolic encephalopathy admitted to the hospital last month for recurrent falls, acute CVA CT chest: No evidence for pulmonary embolism. Occlusion of the right bronchus intermedius and distal left lower lobe segmental bronchus, resulting in postobstructive atelectasis. Additionally, there is an area of ill-defined low density material in the medial right lower lobe, concerning for aspiration pneumonia. 01/27 weaned off O2 supplement, currently on room air Afebrile Blood cultures: negative Sputum culture: Pending collection Nasal MRSA swab: Negative BioFire: Negative continue IV cefepime continue incentive spirometry, flutter valve, hypertonic saline nebs twice daily Pulm consulted, does not recommend bronchoscopy at this point speech therapist consulted Advanced to soft diet status post FEES study at bedside, No signs of aspiration Mild troponin elevation, likely secondary to demand ischemia from hypoxia Troponin 37.3, 38.4, 42.2, 14.9 --No cardiac symptoms Duodenitis -- seen on CT abdomen pelvis -- Denies abdominal pain No charis melena noted Continue Protonix for now Recent history CVA, w/history of previous CVA -- continue aspirin, atorvastatin, Plavix -PT/OT -family does not want to go back to the same rehab, SW consult to evaluate options on this front Episodes of nonsustained V. tach noted on telemetry Asymptomatic Check electrolytes -> found Hypokalemia Echocardiogram last month showing preserved EF, mild aortic stenosis Monitor K 2.9, replace and monitor Hypernatremia Na 146 4/9 AM, recheck 142-144 after ivf Na 147 4/11 AM, will give IVF, and cont. to monitor Na 145 01/31 Na 141 02/01 Na 139 02/02 cont. to monitor #IDDM -home dose insulin -monitor for ISS/basal bolus need #HtN, HLD -- blood pressure elevated, lisinopril added Monitor closely #MDD, vascular dementia #L carotid artery stenosis - continue home meds DVT prophylaxis Lovenox Disposition Patient's family prefers that patient be transition to home with home health services upon discharge --> discussed w/ pt's on 01/31 - taking pt home may not be a good option, and re-thinking SNF again , will need to discuss with CM, CM notified Pt needs to be transferred between bed and chair or wheelchair to commode and without use of lift, pt would be confined to bed. The patient has a medical condition which requires positioning of the body in ways not feasible in an ordinary bed to alleviate pain and skin breakdown. Also to prevent aspiration given recent CVA, needs HOB elevated > 30 degrees most of the time. Admission and Anticipated Discharge Date Admission Date: January 25, 2025 Subjective Pt seen in follow-up for pneumonia with acute hypoxia, etc. Recently hospitalized for falls, found to have CVA currently lying in bed in NAD, been little more responsive for past few days. opens his eyes answers simple questions. Family present at the bedside denies cough, shortness of breath, chest pain or abd. pain Discussed w/ - may not be able to take care of him at home - CM notified to help with DC plan Review of Systems Review of Systems: All systems reviewed & are unremarkable except as noted in Subjective Physical Exam Physical Exam: General- WD/WN M in NAD Neck- no JVD Lungs- decreased breath sounds Heart- normal rate, regular rhythm; no murmurs Abdomen- normal bowel sounds, nondistended, soft, no tenderness Extremities- no pretibial edema left elbow: Resolving hematoma Left ankle: resolving hematoma Neuro- keeps his eyes closed most of the time but opens eyes to voice, answers appropriately, moves extremities Skin- warm & dry Results & Data Results & Data Vital Signs (Past 12 Hours) Vital Signs Temp Pulse Pulse Resp BP Pulse Ox O2 Del Method 02/02/25 15:51 36.5 C 69 18 137/79 92 Room Air 02/02/25 14:14 68 02/02/25 11:24 36.8 C 73 18 134/81 95 Room Air 02/02/25 08:08 64 16 95 Room Air 02/02/25 07:49 36.7 C 70 18 148/79 H 95 Room Air 02/02/25 07:00 68 Laboratory Results 02/02/25 02/02/25 02/02/25 Range/Units 16:13 11:21 07:36 WBC (4.8-10.8) K/ul RBC (4.70-6.10) M/uL Hgb (14.0-18.0) g/dl Hct (42.0-52.0) % MCV (80.0-100.0) fL MCH (25.0-34.0) pg MCHC (32.0-36.0) g/dL RDW Std Deviation (36.4-46.3) fL RDW Coeff of Nikita (11.5-14.5) % Plt Count (130-400) K/uL MPV (9.4-12.4) fL Sodium (136-145) mmol/L Potassium (3.5-5.1) mmol/L Chloride (98-107) mmol/L Carbon Dioxide (21-32) mmol/L Anion Gap (3-11) BUN (6-23) mg/dl Creatinine (0.6-1.4) mg/dl Est Cr Clr Drug Dosing ml/min eGFR BUN/Creatinine Ratio (10-20) Glucose (70-99(Fasting)) mg/dl POC Glucose 152 H 134 H 102 H (70-99) mg/dl Calcium (8.6-10.3) mg/dl Phosphorus (2.5-4.9) mg/dl Magnesium (1.7-2.4) mg/dl 02/02/25 02/01/25 Range/Units 05:57 20:02 WBC 12.78 H (4.8-10.8) K/ul RBC 3.97 L (4.70-6.10) M/uL Hgb 12.5 L (14.0-18.0) g/dl Hct 35.8 L (42.0-52.0) % MCV 90.2 (80.0-100.0) fL MCH 31.5 (25.0-34.0) pg MCHC 34.9 (32.0-36.0) g/dL RDW Std Deviation 40.7 (36.4-46.3) fL RDW Coeff of Nikita 12.2 (11.5-14.5) % Plt Count 342 (130-400) K/uL MPV 9.4 (9.4-12.4) fL Sodium 139 (136-145) mmol/L Potassium 3.8 (3.5-5.1) mmol/L Chloride 105 (98-107) mmol/L Carbon Dioxide 30 (21-32) mmol/L Anion Gap 4 (3-11) BUN 9 (6-23) mg/dl Creatinine 0.67 (0.6-1.4) mg/dl Est Cr Clr Drug Dosing 98.3 ml/min eGFR 96.16 BUN/Creatinine Ratio 13.4 (10-20) Glucose 106 H (70-99(Fasting)) mg/dl POC Glucose 181 H (70-99) mg/dl Calcium 8.3 L (8.6-10.3) mg/dl Phosphorus 3.0 (2.5-4.9) mg/dl Magnesium 2.1 (1.7-2.4) mg/dl Medications Administered Current Inpatient Medications Acetaminophen (Acetaminophen 325 Mg Tab) 650 mg PO Q4H PRN PRN Reason: Pain or Fever Stop: 02/24/25 15:43 Amoxicillin/Clavulanate Potassium (Amoxicillin/Clavulanate 875 Mg Tab) 1 tab PO BIDM [facility]; Protocol Stop: 02/05/25 07:59 Last Admin: 02/02/25 09:37 Dose: 1 tab Aspirin (Aspirin 81 Mg Ectab) 81 mg PO DAILY [facility] Stop: 02/25/25 08:59 Last Admin: 02/02/25 09:41 Dose: 81 mg Atorvastatin Calcium (Atorvastatin 40 Mg Tab) 80 mg PO DAILY [facility] Stop: 02/25/25 08:59 Last Admin: 02/02/25 09:41 Dose: 80 mg Clopidogrel Bisulfate (Clopidogrel Bisulfate 75 Mg Tab) 75 mg PO DAILY [facility] Stop: 02/25/25 08:59 Last Admin: 02/02/25 09:39 Dose: 75 mg Dextrose (Dextrose 50% 50 Ml Syringe) 25 - 50 ml IV UD PRN; Protocol PRN Reason: Hypoglycemia Protocol Stop: 02/24/25 15:53 Enoxaparin Sodium (Enoxaparin Inj 40 Mg/0.4 Ml Syr) 40 mg SQ Q24H [facility] Stop: 02/25/25 17:29 Last Admin: 02/01/25 17:27 Dose: 40 mg Folic Acid (Folic Acid 400 Mcg Tab) 800 mcg PO DAILY [facility] Stop: 02/25/25 08:59 Last Admin: 02/02/25 09:43 Dose: 800 mcg Glucagon (Glucagon For Inj 1 Mg Vial) 1 mg SQ UD PRN; Protocol PRN Reason: Hypoglycemia Protocol Stop: 02/24/25 15:53 Glucose (Glucose 40% Gel 15 Gm Tube) 15 - 30 gm PO UD PRN; Protocol PRN Reason: Hypoglycemia Protocol Stop: 02/24/25 15:53 Glucose (Glucose 10 Tab/Tube) 4 - 8 tab PO UD PRN; Protocol PRN Reason: Hypoglycemia Protocol Stop: 02/24/25 15:53 Guaifenesin (Guaifenesin 600 Mg Tabcr) 600 mg PO Q12 [facility] Stop: 03/02/25 14:29 Last Admin: 02/02/25 09:43 Dose: 600 mg Insulin Aspart (Insulin Aspart Per Unit Charge) 0 units SC ACHS [facility] Stop: 02/25/25 11:29 Last Admin: 02/02/25 12:55 Dose: 2 units Insulin Glargine (Lantus Per Unit Charge) 20 units SC HS [facility] Stop: 03/03/25 20:59 Lactobacillus Acidophilus (Advanced Probiotic 625 Mg Capsule) 1,250 mg PO DAILY [facility] Stop: 02/25/25 08:59 Last Admin: 02/02/25 09:41 Dose: 1,250 mg Lisinopril (Lisinopril 5 Mg Tab) 5 mg PO HS [facility] Stop: 02/27/25 20:59 Last Admin: 02/01/25 21:30 Dose: 5 mg Magnesium Oxide (Magnesium Oxide 400 Mg Tab) 200 mg PO DAILY [facility] Stop: 02/25/25 08:59 Last Admin: 02/02/25 09:42 Dose: 200 mg Miscellaneous (Carbohydrates For Hypoglycemia ) 15 - 30 gm PO UD PRN PRN Reason: Hypoglycemia Protocol Stop: 02/24/25 15:53 Miscellaneous Information (Pharmacy Glycemic Mgmt Consult) 1 each N/A UD PRN PRN Reason: Consult Stop: 02/24/25 15:53 Ondansetron HCl (Ondansetron Inj 2 Mg/Ml 2 Ml Vial) 4 mg IV Q6H PRN PRN Reason: Nausea Stop: 02/24/25 15:43 Pantoprazole Sodium (Pantoprazole 40 Mg Tab) 40 mg PO BID [facility] Stop: 03/02/25 20:59 Last Admin: 02/02/25 09:42 Dose: 40 mg Simethicone (Simethicone 40 Mg/0.6 Ml 30ml) 80 mg PO Q6H PRN PRN Reason: Flatulence Stop: 02/27/25 17:43 Sodium Chloride (Sodium Chlor 7% 4 Ml Neb) 4 ml NEB BIDR [facility] Stop: 02/26/25 10:19 Last Admin: 02/02/25 07:10 Dose: 4 ml Thiamine HCl (Thiamine Hcl 100 Mg Tab) 100 mg PO QAM [facility] Stop: 03/02/25 14:44 Last Admin: 02/02/25 09:42 Dose: 100 mg Vitamin D (Cholecalciferol 25 Mcg (1000 Units) Tab) 25 mcg PO DAILY [facility] Stop: 02/25/25 08:59 Last Admin: 02/02/25 09:42 Dose: 25 mcg Zinc Sulfate (Zinc Sulfate 220 Mg Capsule) 220 mg PO DAILY [facility] Stop: 02/25/25 08:59 Last Admin: 02/02/25 09:42 Dose: 220 mg (2) Altered mental status Altered mental status type: unspecified Qualified Code(s): R41.82 - Altered mental status, unspecified
[2025-02-02] MEDS: LANTUS PER UNIT CHARGE SC SCH (20:15)
[2025-02-03 08:27] LABS: Hematocrit (blood only) 36.3 % (42.0-52.0); Hemoglobin 12.5 g/dl (14.0-18.0); Mean Corpuscular Hemoglobin 30.9 pg (25.0-34.0); Mean Corpuscular Hgb Conc 34.4 g/dL (32.0-36.0); Mean Corpuscular Volume 89.9 fL (80.0-100.0); Mean Platelet Volume 9.4 fL (9.4-12.4); Platelet Count 376 K/uL (130-400); RDW Coefficient of Variation 12.4 % (11.5-14.5); RDW Standard Deviation 40.7 fL (36.4-46.3); Red Blood Count 4.04 M/uL (4.70-6.10)
[2025-02-03 09:12] LABS: BUN Creatinine Ratio 18.3 (10-20); Calcium 8.4 mg/dl (8.6-10.3); Creatinine Clr Calc Pharmacy 92.8 ml/min; Magnesium 2.2 mg/dl (1.7-2.4); Phosphorus 3.3 mg/dl (2.5-4.9); Potassium 3.9 mmol/L (3.5-5.1)
--- NOTE | 2025-02-03 15:21 | Hospitalist Progress Note ---
Date of Service February 03, 2025 Assessment & Plan (1) Aspiration pneumonia: (2) Altered mental status: Plan Pneumonia, possible healthcare associated possible Metabolic encephalopathy admitted to the hospital last month for recurrent falls, acute CVA CT chest: No evidence for pulmonary embolism. Occlusion of the right bronchus intermedius and distal left lower lobe segmental bronchus, resulting in postobstructive atelectasis. Additionally, there is an area of ill-defined low density material in the medial right lower lobe, concerning for aspiration pneumonia. 01/27 weaned off O2 supplement, currently on room air Afebrile Blood cultures: negative Sputum culture: Pending collection Nasal MRSA swab: Negative BioFire: Negative continued IV cefepime -> switched to Augmentin continue incentive spirometry, flutter valve, hypertonic saline nebs twice daily Pulm consulted, does not recommend bronchoscopy at this point speech therapist consulted Advanced to soft diet status post FEES study at bedside, No signs of aspiration Mild troponin elevation, likely secondary to demand ischemia from hypoxia Troponin 37.3, 38.4, 42.2, 14.9 --No cardiac symptoms Duodenitis -- seen on CT abdomen pelvis -- Denies abdominal pain No charis melena noted Continue Protonix for now Recent history CVA, w/history of previous CVA -- continue aspirin, atorvastatin, Plavix -PT/OT -family does not want to go back to the same rehab, CM involved in DC plan Episodes of nonsustained V. tach noted on telemetry Asymptomatic Check electrolytes -> found Hypokalemia Echocardiogram last month showing preserved EF, mild aortic stenosis Monitor K 2.9, replace and monitor Hypernatremia Na 146 4/9 AM, recheck 142-144 after ivf Na 147 4/11 AM, will give IVF, and cont. to monitor Na 145 12 Na 141 02/01 Na 139 02/02 Na 138 02/03 cont. to monitor #IDDM -home dose insulin -monitor for ISS/basal bolus need #HtN, HLD -- blood pressure elevated, lisinopril added Monitor closely #MDD, vascular dementia #L carotid artery stenosis - continue home meds DVT prophylaxis Lovenox Disposition Patient's family prefers that patient be transition to home with home health services upon discharge --> discussed w/ pt's on 01/31 - taking pt home may not be a good option, and re-thinking SNF again , will need to discuss with CM, CM notified - CM involved in DC planning, likely DC tmrw (02/03) Admission and Anticipated Discharge Date Admission Date: January 25, 2025 Subjective Pt seen in follow-up for pneumonia with acute hypoxia, etc. Recently hospitalized for falls, found to have CVA currently lying in bed in NAD, been little more responsive for past few days. opens his eyes answers simple questions denies cough, shortness of breath, chest pain or abd. pain CM involved in DC plan Review of Systems Review of Systems: All systems reviewed & are unremarkable except as noted in Subjective Physical Exam Physical Exam: General- WD/WN M in NAD Neck- no JVD Lungs- decreased breath sounds Heart- normal rate, regular rhythm; no murmurs Abdomen- normal bowel sounds, nondistended, soft, no tenderness Extremities- no pretibial edema left elbow: Resolving hematoma Left ankle: resolving hematoma Neuro- keeps his eyes closed most of the time but opens eyes to voice, answers appropriately, moves extremities Skin- warm & dry Results & Data Results & Data Vital Signs (Past 12 Hours) Vital Signs Temp Pulse Pulse Resp BP BP Pulse Ox 02/03/25 12:02 107 H 02/03/25 10:46 36.2 C L 74 17 138/83 95 02/03/25 07:18 36.7 C 70 17 147/88 H 100 02/03/25 07:07 77 16 96 O2 Del Method 02/03/25 12:02 02/03/25 10:46 Room Air 02/03/25 07:18 Room Air 02/03/25 07:07 Room Air Laboratory Results 02/03/25 02/03/25 02/03/25 Range/Units 11:18 07:17 07:07 WBC 11.60 H (4.8-10.8) K/ul RBC 4.04 L (4.70-6.10) M/uL Hgb 12.5 L (14.0-18.0) g/dl Hct 36.3 L (42.0-52.0) % MCV 89.9 (80.0-100.0) fL MCH 30.9 (25.0-34.0) pg MCHC 34.4 (32.0-36.0) g/dL RDW Std Deviation 40.7 (36.4-46.3) fL RDW Coeff of Nikita 12.4 (11.5-14.5) % Plt Count 376 (130-400) K/uL MPV 9.4 (9.4-12.4) fL Sodium 138 (136-145) mmol/L Potassium 3.9 (3.5-5.1) mmol/L Chloride 103 (98-107) mmol/L Carbon Dioxide 30 (21-32) mmol/L Anion Gap 5 (3-11) BUN 13 (6-23) mg/dl Creatinine 0.71 (0.6-1.4) mg/dl Est Cr Clr Drug Dosing 92.8 ml/min eGFR 94.50 BUN/Creatinine Ratio 18.3 (10-20) Glucose 126 H (70-99(Fasting)) mg/dl POC Glucose 136 H 127 H (70-99) mg/dl Calcium 8.4 L (8.6-10.3) mg/dl Phosphorus 3.3 (2.5-4.9) mg/dl Magnesium 2.2 (1.7-2.4) mg/dl 02/02/25 02/02/25 Range/Units 19:46 16:13 WBC (4.8-10.8) K/ul RBC (4.70-6.10) M/uL Hgb (14.0-18.0) g/dl Hct (42.0-52.0) % MCV (80.0-100.0) fL MCH (25.0-34.0) pg MCHC (32.0-36.0) g/dL RDW Std Deviation (36.4-46.3) fL RDW Coeff of Nikita (11.5-14.5) % Plt Count (130-400) K/uL MPV (9.4-12.4) fL Sodium (136-145) mmol/L Potassium (3.5-5.1) mmol/L Chloride (98-107) mmol/L Carbon Dioxide (21-32) mmol/L Anion Gap (3-11) BUN (6-23) mg/dl Creatinine (0.6-1.4) mg/dl Est Cr Clr Drug Dosing ml/min eGFR BUN/Creatinine Ratio (10-20) Glucose (70-99(Fasting)) mg/dl POC Glucose 143 H 152 H (70-99) mg/dl Calcium (8.6-10.3) mg/dl Phosphorus (2.5-4.9) mg/dl Magnesium (1.7-2.4) mg/dl Medications Administered Current Inpatient Medications Acetaminophen (Acetaminophen 325 Mg Tab) 650 mg PO Q4H PRN PRN Reason: Pain or Fever Stop: 02/24/25 15:43 Amoxicillin/Clavulanate Potassium (Amoxicillin/Clavulanate 875 Mg Tab) 1 tab PO BIDM [facility]; Protocol Stop: 02/05/25 07:59 Last Admin: 02/03/25 09:34 Dose: 1 tab Aspirin (Aspirin 81 Mg Ectab) 81 mg PO DAILY [facility] Stop: 02/25/25 08:59 Last Admin: 02/03/25 09:35 Dose: 81 mg Atorvastatin Calcium (Atorvastatin 40 Mg Tab) 80 mg PO DAILY [facility] Stop: 02/25/25 08:59 Last Admin: 02/03/25 09:36 Dose: 80 mg Clopidogrel Bisulfate (Clopidogrel Bisulfate 75 Mg Tab) 75 mg PO DAILY [facility] Stop: 02/25/25 08:59 Last Admin: 02/03/25 09:34 Dose: 75 mg Dextrose (Dextrose 50% 50 Ml Syringe) 25 - 50 ml IV UD PRN; Protocol PRN Reason: Hypoglycemia Protocol Stop: 02/24/25 15:53 Enoxaparin Sodium (Enoxaparin Inj 40 Mg/0.4 Ml Syr) 40 mg SQ Q24H [facility] Stop: 02/25/25 17:29 Last Admin: 02/02/25 17:32 Dose: 40 mg Folic Acid (Folic Acid 400 Mcg Tab) 800 mcg PO DAILY [facility] Stop: 02/25/25 08:59 Last Admin: 02/03/25 09:34 Dose: 800 mcg Glucagon (Glucagon For Inj 1 Mg Vial) 1 mg SQ UD PRN; Protocol PRN Reason: Hypoglycemia Protocol Stop: 02/24/25 15:53 Glucose (Glucose 40% Gel 15 Gm Tube) 15 - 30 gm PO UD PRN; Protocol PRN Reason: Hypoglycemia Protocol Stop: 02/24/25 15:53 Glucose (Glucose 10 Tab/Tube) 4 - 8 tab PO UD PRN; Protocol PRN Reason: Hypoglycemia Protocol Stop: 02/24/25 15:53 Guaifenesin (Guaifenesin 600 Mg Tabcr) 600 mg PO Q12 [facility] Stop: 03/02/25 14:29 Last Admin: 02/03/25 09:34 Dose: 600 mg Insulin Aspart (Insulin Aspart Per Unit Charge) 0 units SC ACHS [facility] Stop: 02/25/25 11:29 Last Admin: 02/03/25 12:56 Dose: 2 units Insulin Glargine (Lantus Per Unit Charge) 20 units SC HS [facility] Stop: 03/03/25 20:59 Last Admin: 02/02/25 20:15 Dose: 20 units Lactobacillus Acidophilus (Advanced Probiotic 625 Mg Capsule) 1,250 mg PO DAILY [facility] Stop: 02/25/25 08:59 Last Admin: 02/03/25 09:34 Dose: 1,250 mg Lisinopril (Lisinopril 5 Mg Tab) 5 mg PO HS [facility] Stop: 02/27/25 20:59 Last Admin: 02/02/25 20:16 Dose: 5 mg Magnesium Oxide (Magnesium Oxide 400 Mg Tab) 200 mg PO DAILY [facility] Stop: 02/25/25 08:59 Last Admin: 02/03/25 09:35 Dose: 200 mg Miscellaneous (Carbohydrates For Hypoglycemia ) 15 - 30 gm PO UD PRN PRN Reason: Hypoglycemia Protocol Stop: 02/24/25 15:53 Miscellaneous Information (Pharmacy Glycemic Mgmt Consult) 1 each N/A UD PRN PRN Reason: Consult Stop: 02/24/25 15:53 Ondansetron HCl (Ondansetron Inj 2 Mg/Ml 2 Ml Vial) 4 mg IV Q6H PRN PRN Reason: Nausea Stop: 02/24/25 15:43 Pantoprazole Sodium (Pantoprazole 40 Mg Tab) 40 mg PO BID [facility] Stop: 03/02/25 20:59 Last Admin: 02/03/25 09:35 Dose: 40 mg Simethicone (Simethicone 40 Mg/0.6 Ml 30ml) 80 mg PO Q6H PRN PRN Reason: Flatulence Stop: 02/27/25 17:43 Sodium Chloride (Sodium Chlor 7% 4 Ml Neb) 4 ml NEB BIDR [facility] Stop: 02/26/25 10:19 Last Admin: 02/03/25 07:06 Dose: 4 ml Thiamine HCl (Thiamine Hcl 100 Mg Tab) 100 mg PO QAM [facility] Stop: 03/02/25 14:44 Last Admin: 04/15/25 09:35 Dose: 100 mg Vitamin D (Cholecalciferol 25 Mcg (1000 Units) Tab) 25 mcg PO DAILY [facility] Stop: 02/25/25 08:59 Last Admin: 02/03/25 10:02 Dose: 25 mcg Zinc Sulfate (Zinc Sulfate 220 Mg Capsule) 220 mg PO DAILY [facility] Stop: 02/25/25 08:59 Last Admin: 02/03/25 09:34 Dose: 220 mg (2) Altered mental status Altered mental status type: unspecified Qualified Code(s): R41.82 - Altered mental status, unspecified
[2025-02-04 10:54] VITALS: RESP 17; TEMP 97.5; O2SAT 92
--- NOTE | 2025-02-04 13:05 | Discharge Summary ---
Discharge Summary Date of Service February 04, 2025 Principal Dx & Hospital Course #1 = Principal Diagnosis (1) Aspiration pneumonia: (2) Altered mental status: Plan Pt is a 79yoM with PMHx significant for recent CVA, IDDM, L carotid artery stenosis, MDD, vascular dementia w/behavioral disturbances, HTN, HLD who presented to the ED with concern for altered mental status. Pneumonia, possible healthcare associated Encephalopathy admitted to the hospital last month for recurrent falls, acute CVA CT chest noted the following: "No evidence for pulmonary embolism. Occlusion of the right bronchus intermedius and distal left lower lobe segmental bronchus, resulting in postobstructive atelectasis. Additionally, there is an area of ill-defined low density material in the medial right lower lobe, concerning for aspiration pneumonia." Blood cultures: negative Sputum culture was not able to be obtained Nasal MRSA swab: Negative BioFire: Negative Completed antibiotic treatment with Cefepime and Augmentin incentive spirometry, flutter valve, hypertonic saline nebs twice daily Pulmonology was consulted -noted that the mucoid impaction on chest CT and aspiration changes will require effective cough, appeared to be related to progression of his underlying neurological disorder. Recommended pulmonary toilet. -No invasive procedures -recommended antibiotic course -pt was on RA and in no resp distress speech therapist consulted, Advanced to soft diet status post study at bedside, No signs of aspiration On the day of discharge pt was improved and back to baseline. requesting SNF services. Mild troponin elevation likely secondary to demand ischemia Troponin elevated but flat No cardiac symptoms Duodenitis seen on CT abdomen pelvis Denies abdominal pain No charis melena noted Treated with protonix, discharged with pantoprazole as well Recent history CVA, w/history of previous CVA continue aspirin, atorvastatin, Plavix PT/OT- discharged to SNF Episodes of nonsustained V. tach noted on telemetry Asymptomatic replete electrolytes as needed Echocardiogram last month showing preserved EF, mild aortic stenosis Resolved on discharge Hypernatremia Resolved on discharge IDDM resume home meds HtN, HLD blood pressure elevated, lisinopril added PCP followup for continued monitoring MDD, vascular dementia L carotid artery stenosis continue home meds Possible Ileus Noted on KUB from 01/28 Has since had multiple bowel movements with last noted on 02/01 Repeat KUB on day of discharge Notes For Next Care Provider Medication Changes From Visit Pantoprazole 40mg daily lisinopril 5mg qhs Admission HPI Per Admitting Provider 79M pmh recent CVA, IDDM, L carotid artery stenosis, MDD, vascular dementia w/behavioral disturbances, additional previous CVA, htn, HLD who presents to the ED altered. Patient's history is given by who is at the bedside and provides history. Patient is AAOx0, responds to stimuli however. states that patient was d/c about 5d ago from here after a CVA and since he has been d/c to SNF/rehab he has been worsening day by day. States that he has been increasingly weak, confused since leaving the hospital and in the last few days has developed a nonproductive cough as well as worsening dysphagia. No known fever, chills, abdominal pain, urinary symptoms including discharge, frequency. Of note patient was d/c from here due to multiple infarcts on the R hemisphere and states that his mentation is at baseline limited, especially his memory, but this is worse than baseline. Admission Exam Per Admitting Provider Constitutional: WD/WN, vitals as above Respiratory: Some crackles in the R middle and lower lobes Gastrointestinal (Abdomen): normal bowel sounds, soft, nontender, no hepatosplenomegaly Psychiatric: Orientation: + not oriented x 3 Discharge Exam General: Alert, orientedx1. No acute distress Psych: uncooperative mood and affect Neuro:difficulty with movements in the bed HEENT: NC/AT Chest: Nontender to palpation. CV: RRR, +mumur Resp: Breath sounds clear bilaterally, no increased effort of breathing Abdomen: Soft, nontender Extremities: No edema in lower extremities bilaterally. Updated Medication List Medication Instructions Recorded Confirmed Type insulin aspart U-100 100 unit/mL 0 - 12 sliding scale dose subcut 07/06/20 01/25/25 History subcutaneous cartridge (Novolog TIDM PenFill U-100 Insulin aspart) insulin degludec 100 unit/mL (3 23 unit subcut HS 07/06/20 01/25/25 History mL) subcutaneous pen (Tresiba FlexTouch U-100 insulin) cholecalciferol (vitamin D3) 25 25 mcg PO DAILY 07/25/22 01/25/25 History mcg (1,000 unit) capsule (Vitamin D3) coenzyme Q10 100 mg capsule 100 mg PO DAILY 07/25/22 01/25/25 History (CoQ-10) folic acid 800 mcg tablet 800 mg PO DAILY 07/25/22 01/25/25 History magnesium 250 mg tablet 250 mg PO DAILY 07/25/22 01/25/25 History potassium gluconate 595 mg (99 mg) 99 mg PO DAILY 07/25/22 01/25/25 History tablet zinc gluconate 50 mg tablet 50 mg PO DAILY 07/25/22 01/25/25 History atorvastatin 80 mg tablet 80 mg PO DAILY #30 tabs 07/28/22 01/25/25 Rx aspirin 81 mg tablet,delayed 81 mg PO DAILY #30 tabs 01/20/25 01/25/25 Rx release (Ecotrin Low Strength) clopidogrel 75 mg tablet 75 mg PO DAILY #12 tabs 01/20/25 01/25/25 Rx acetaminophen 325 mg tablet 650 mg PO Q6H PRN Mild Pain (Scale 01/25/25 01/25/25 History Score 1-3) acetaminophen 325 mg tablet 650 mg PO Q4H PRN Fever 01/25/25 01/25/25 History (Tylenol) acetaminophen 650 mg rectal 650 mg UT Q4H PRN Fever 01/25/25 01/25/25 History suppository bisacodyl 10 mg rectal suppository 10 mg UT DAILY PRN Constipation 01/25/25 01/25/25 History (Dulcolax (bisacodyl)) magnesium hydroxide 400 mg/5 mL 2,400 mg PO DAILY PRN Constipation 01/25/25 01/25/25 History oral suspension (Milk of Magnesia) sodium phosphates 19 gram-7 118 ml UT DAILY PRN Constipation 01/25/25 01/25/25 History gram/118 mL enema (Fleet Enema) lisinopril 5 mg tablet 5 mg PO DAILY #30 tabs 02/04/25 Rx pantoprazole 40 mg tablet,delayed 40 mg PO DAILY #30 tabs 02/04/25 Rx release Hospital Stay Data Consultations 01/25/25 14:26 ED Decision to Admit Stat 01/25/25 15:10 ED Decision to Admit Stat 01/25/25 15:48 Consult Pulmonology Routine Diagnostic Imagining Performed 01/25/25 12:58 CT abd pelvis IV con only Stat CT angio chest PE protocol Stat 01/25/25 13:01 CT head/brain wo con Stat Chest X-Ray 01/25/25 11:57 XR chest 1V portable HISTORY: 79 years-old Male Chest pain, nonspecific acute chest pain COMPARISON: 01/09/2025 TECHNIQUE: AP view of the chest FINDINGS: Cardiac silhouette is enlarged. Mild right hemidiaphragmatic elevation and linear subsegmental bibasilar atelectasis. No pneumothorax or overt pulmonary edema. Bones appear grossly intact. IMPRESSION: Cardiomegaly with mild bibasilar atelectasis. ACT 112: Negative or not required by law. The above report was generated using voice recognition software. It may contain grammatical, syntax or spelling errors. Electronically signed by: Luis Borja M.D. 01/25/2025 12:16 PM Abdomen/Pelvis CT 01/25/25 12:58 EXAMINATION: CT of the abdomen and pelvis performed after the administration of IV contrast TECHNIQUE: Helical CT images from the lung bases through the symphysis pubis were obtained with contrast. Coronal and sagittal reformatted images were generated at a workstation for further assessment. Dose reduction techniques were achieved by using automatic exposure control and/or adjustment of mA and/or kV according to patient size and/or use of iterative reconstruction technique. COMPARISON: None HISTORY: Weakness FINDINGS: Lower chest: No consolidation. No pleural effusion or pneumothorax. Liver: No suspicious liver lesions. Portal veins appear patent. Gallbladder: No gallstones. Spleen: Normal size. Pancreas: No suspicious pancreatic lesions. The pancreatic duct is not dilated. Adrenal glands: No adrenal nodules. Kidneys: No hydronephrosis or obstructing renal stones. Bladder / Pelvic organs: The prostate gland is enlarged. The urinary bladder is incompletely distended. Bowel: No bowel obstruction. There is an area of wall thickening and mucosal hyperenhancement involving the first and second portions of the duodenum. Edema of the wall and mild free fluid is seen to surround the region. The appendix is nonvisualized. A short segment of intussusception is seen within the small bowel jejunum in the left upper quadrant, series 9 image 140. No evidence for obstruction. Lymph nodes: No retroperitoneal, mesenteric, or pelvic lymphadenopathy. Peritoneum / Retroperitoneum: No ascites. No free air. Vessels: No infrarenal aortic aneurysm. Heavy calcified and noncalcified aortoiliac atherosclerosis. Bones and soft tissues: No suspicious lesion in the bones. IMPRESSION: Mild wall thickening, mucosal hyperenhancement, and surrounding free fluid about the duodenum, which may be seen with duodenitis. A short segment of intussusception, possibly transient, seen within the jejunum in the left upper quadrant. No associated obstruction. CT head without contrast History: Trauma Comparison: None Technique: Using multidetector thin collimation helical acquisition technique, axial, coronal and sagittal CT images from the skull base to the vertex were obtained without intravenous contrast. Dose reduction techniques were achieved by using automatic exposure control and/or adjustment of mA and/or kV according to patient size and/or use of iterative reconstruction technique. Findings: No intracranial hemorrhage, mass-effect, or midline shift. The ventricles are proportionate to the cerebral sulci. The pérez to white matter differentiation of the cerebral hemispheres is preserved. The basal cisterns are patent. The visualized paranasal sinuses are clear. Mastoid air cells are clear. Impression: No acute intracranial pathology. Electronically signed by Antonio Hanley 01-25-2025 2:45 PM Chest CTA 01/25/25 12:58 CT pulmonary angiogram with IV contrast History: Fever COMPARISON: None TECHNIQUE: CT angiography of the chest was performed without IV contrast followed by IV contrast, including 3D post processing CTA image reconstruction. Dose reduction techniques were achieved by using automatic exposure control and/or adjustment of mA and/or kV according to patient size and/or use of iterative reconstruction technique. FINDINGS: Diagnostic quality: Adequate There is no evidence for pulmonary embolism. The heart is not enlarged. There are heavy coronary calcifications. There is no pericardial effusion. There are no abnormally enlarged hilar or mediastinal lymph nodes. There is occlusion of the right bronchus intermedius, as well as the distal left lower lobe segmental bronchus. An area of ill-defined low-density material is seen within the medial right lower lobe, series 5 image 31, measuring 3.5 cm in diameter. Moderate right and mild left confluent lower lobe atelectasis. There is no pleural effusion. Inward bowing of the posterior membrane of the trachea with narrowing of the AP diameter, which may be seen with excessive dynamic airway collapse and tracheobronchomalacia, which could be further evaluated with pulmonology, if indicated. Limited visualized upper abdomen. No destructive osseous changes are seen. IMPRESSION: No evidence for pulmonary embolism. Occlusion of the right bronchus intermedius and distal left lower lobe segmental bronchus, resulting in postobstructive atelectasis. Additionally, there is an area of ill-defined low density material in the medial right lower lobe, concerning for aspiration pneumonia. Electronically signed by Antonio Hanley 01-25-2025 2:[address] 01/25/25 13:01 CT head without contrast History: Weakness. Dementia Comparison: None Technique: Using multidetector thin collimation helical acquisition technique, axial, coronal and sagittal CT images from the skull base to the vertex were obtained without intravenous contrast. Dose reduction techniques were achieved by using automatic exposure control and/or adjustment of mA and/or kV according to patient size and/or use of iterative reconstruction technique. Findings: No intracranial hemorrhage, mass-effect, or midline shift. The ventricles are proportionate to the cerebral sulci. Small, chronic infarct in the high left frontal lobe, otherwise of the pérez to white matter differentiation of the cerebral hemispheres is preserved. The basal cisterns are patent. There is moderate cerebral atrophy. Moderate, patchy low-attenuation changes in the white matter, most suggestive of sequelae of chronic small vessel ischemic disease. The visualized paranasal sinuses are clear. Mastoid air cells are clear. Impression: No acute intracranial pathology. Electronically signed by Antonio Hanley 01-25-2025 2:45 PM Ankle X-Ray 01/27/25 10:04 XR foot LT min 3V routine, XR ankle LT min 3V routine CLINICAL HISTORY: fall, r/o fracture COMPARISON: None FINDINGS: No acute fracture or dislocation seen at the left ankle. There are mild degenerative changes. No acute fracture or dislocation seen at the left foot. There are mild degenerative changes without erosions. There is a small plantar calcaneal spur. IMPRESSION: No fracture seen. ACT 112: Negative or not required by law. Electronically signed by: Toni Renee M.D. 01/27/2025 10:59 AM Elbow X-Ray 01/27/25 10:04 XR elbow LT min 3V routine CLINICAL HISTORY: fall,r/o fracture COMPARISON: None FINDINGS: Alignment of the left elbow is anatomic. There is no evidence for a joint effusion. No acute fractures are identified. Minimal olecranon spurring is present. Irregularity of the medial and lateral condyles is chronic. A 7 mm well-corticated calcific density along the medial condyle is chronic. IMPRESSION: No acute fractures within the left elbow. No evidence for a joint effusion. ACT 112: Negative or not required by law. Electronically signed by: Chevy Tobias M.D. 01/27/2025 10:58 AM Foot X-Ray 01/27/25 10:04 XR foot LT min 3V routine, XR ankle LT min 3V routine CLINICAL HISTORY: fall, r/o fracture COMPARISON: None FINDINGS: No acute fracture or dislocation seen at the left ankle. There are mild degenerative changes. No acute fracture or dislocation seen at the left foot. There are mild degenerative changes without erosions. There is a small plantar calcaneal spur. IMPRESSION: No fracture seen. ACT 112: Negative or not required by law. Electronically signed by: Toni Renee M.D. 01/27/2025 10:59 AM Chest X-Ray 01/28/25 16:25 Clinical History: Chest pain Technique: A frontal view of the chest was obtained Comparison is made to the prior examination dated 01/25/2025 Findings: There are no confluent pulmonary infiltrates. The heart size is within normal limits. No pleural effusion or pneumothorax is seen. There is an apparent small left upper lobe nodule, likely a benign granuloma No fracture is noted. There is thoracic degenerative disc disease Impression: 1. No definite acute process 2. No definite change in a suspected small left upper lobe nodule, likely a benign granuloma Electronically signed by Wojciech Connor 01-28-2025 5:40 PM KUB X-Ray 01/28/25 16:41 Clinical history: Pain 2 views of the abdomen were obtained Findings: There are mildly prominent air-filled loops of small and large bowel, which may be due to ileus. No renal or ureteral calculi are seen. No foreign body is evident. There is lumbar scoliosis and degenerative disc disease Impression: Possible mild ileus Electronically signed by Wojciech Connor 01-28-2025 5:28 PM Discharge Instructions Given to Patient (Per Discharging Provider) Brandon, You are being discharged to a care home facility. You completed antibiotic treatment. Please continue taking the pantoprazole daily as prescribed. Please keep close follow up with your primary care provider after discharge. Please do not hesitate to come back to the emergency room if your symptoms worsen or return. It was a pleasure taking care of you while you were here. Total Time Total Time Spent Total Time Spent (In Minutes): 60
[2025-02-04 13:22] VITALS: BP 167/90; PULSE 89
--- NOTE | 2025-02-04 14:20 | XRay Report ---
KUB HISTORY: f/u ileus COMPARISON STUDY: 01/28/2025 FINDINGS: Single view of the abdomen demonstrates a nonspecific bowel gas pattern. Is no evidence of obstruction. There is no soft tissue mass or calcification. The properitoneal fat lines are maintaine d. There is a round artifact superimposed over the right midabdomen laterally. IMPRESSION: Nonspecific abdominal findings. No radiographic evidence of ileus or obstruction. ACT 112: Negative or not required by law. The above report was generated using voice recognition software. It may contain grammatical, syntax o r spelling errors. Electronically signed by: Coni Young M.D. 02/04/2025 2:18 PM
[2025-02-04] MEDS ORDERED: LANTUS PER UNIT CHARGE SC SCH (21:00)
== END 2025-02-04 16:02 | DRG 177 ==
LOC: ED 11:46 → 2S 15:44 → SUATTDRO 18:07 → 2S 20:38

== ENCOUNTER 2025-07-14 14:21 | Inpatient (IN) ==
[2025-07-14 15:10] LABS: Hematocrit (blood only) 44.6 % (42.0-52.0); Hemoglobin 15.5 g/dl (14.0-18.0); Immature Granulocytes # (auto) 0.02 K/uL (0.01-0.20); Immature Granulocytes % (auto) 0.3 %; Mean Corpuscular Hemoglobin 30.9 pg (25.0-34.0); Mean Corpuscular Volume 89.0 fL (80.0-100.0); Platelet Count 250 K/uL (130-400); RDW Standard Deviation 43.4 fL (36.4-46.3); Red Blood Count 5.01 M/uL (4.70-6.10); White Blood Count 7.58 K/ul (4.8-10.8)
--- NOTE | 2025-07-14 15:27 | Emergency Department Note ---
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 Patient is accompanied by EMS who provide additional history. EMS reports aphasia and residual L sided deficits. Patient is aphasic but able to nod yes and no as well as give a thumbs up. Further history and ROS deferred given to the patient's difficulty with communication. The patient's arrived at the bedside. She reports that they are from the [facility]. She states that he had a stroke this spring in December. Patient had significant deficits and required rehabilitation stay at [facility]. She states he was discharged on April 20 and has been doing well. She reports over the last few days he has been aphasic and has had trouble performing physical therapy. Seems like he has a blank stare. Patient is not active like he normally is. He remains to have a good appetite. She states he is otherwise been in his normal state of health but this was a significant decline from prior. She is very concerned about possible TIA or recurrent stroke. ADDITIONAL HISTORY OBTAINED: Per HPI Chronic Medical/Social Conditions Affecting Care: Per HPI PAST MEDICAL HISTORY: See Below PAST SURGICAL HISTORY: See Below FAMILY HISTORY: See Below SOCIAL HISTORY: See Below HOME MEDICATIONS: See Below ALLERGIES: See Below VITALS: See Below PHYSICAL EXAMINATION: GENERAL: Sitting up in bed, alert, well appearing, well nourished, no distress, non-toxic EYE EXAM: normal conjunctiva. PERRL and EOM's grossly intact. OROPHARYNX: no exudate, no erythema, lips, buccal mucosa, and tongue normal and mucous membranes are moist NECK: supple, no nuchal rigidity, no adenopathy, non-tender LUNGS: Clear to auscultation. Normal chest wall mechanics HEART: no murmurs, regular rate, regular rhythm ABDOMEN: abdomen soft, non-tender, no masses, no rebound or guarding. BACK: Back is symmetrical on inspection and there is no deformity, no midline tenderness, no CVA tenderness. SKIN: no rashes and no bruising UPPER EXTREMITIES: upper extremities are grossly normal. LOWER EXTREMITIES: No pitting edema. NEURO EXAM: GCS 11 with aphasia, generalized weakness with L sided deficits more severe. MEDICAL DECISION MAKING: Differential diagnoses includes but not limited to ICH, CVA, TIA, functional decline, UTI, electrolyte derangements, dehydration, ACS, dysrhythmia, neurocognitive dysfunction In summary, this is a 79 year old male who presented with AMS. Differential as above. Nursing notes and pertinent past medical records reviewed. Vital signs reviewed and the patient is hypertensive but otherwise afebrile and HDS. History and presentation revealed extensive neurocognitive history secondary to vascular dementia and prior R TOP STOP ATTACHER stroke. Physical examination revealed as above. As a result of my initial evaluation, given worsening and his 's concerns, we will plan for CTA Head/Neck as well as labs/UA. Diagnostics interpreted by me include EKG and cardiac monitoring as listed below: -Cardiac Monitoring: An order was placed for continuous cardiac monitoring. The monitor shows a rate of 60-80s with regular rhythm. -ECG: Normal sinus rhythm with sinus arrhythmia at a ventricular rate of [address] segment changes to suggest STEMI. Left axis deviation noted. Patient completed laboratory studies and imaging. Results independently interpreted by me are no leukocytosis or anemia. No significant electrolyte derangements or dehydration. LFTs are normal. The patient was managed with close observation. CTH independently interpreted by me revealed no significant ICH. Given significant vascular stenoses throughout the CTA imaging of the head and neck, patient was discussed with [facility] neurology. They did recommend obtaining MRI. If new strokes, the patient will benefit from switching from Plavix to Brilinta. Patient will need UA to complete his workup as well. Ultimately, the decision was made to admit the patient for AMS and aphasia in the setting of significant vascular disease and prior stroke. I discussed the case with the hospitalist service via telephone/Tiger[employer] and they are agreeable to admit the patient to their services. Based on the above, including the patient's age, coexisting illnesses, labs, imaging, and exam findings the decision to treat as an inpatient. I discussed the patient with the hospitalist team who recommended admission to their services. They received the medications, treatments, interventions indicated above and their condition remained guarded. I discussed my findings with the patient and their family and they understand and agree with the treatment plan. All patient / family questions were answered to their satisfaction. Consults/Care Managements Discussions: Per MDM ER treatment provided: See above Procedures:none Critical Care: None The chart was completed utilizing [employer] Speech voice recognition software. Grammatical errors, random word insertions, pronoun errors, and incomplete sentences are an occasional consequence of this system due to software limitations, ambient noise, and hardware issues. Any formal questions or concerns about the content, text, or information contained within the body of this dictation should be directly addressed to the physician for clarification. Past Med/Surg History Problem List (Updated 07/14/25 @ 22:06 by Clayton Rios DO) Vascular disease (Acute) Weakness (Acute) Aphasia (Acute) Acute encephalopathy (Acute) Abnormal CT scan of lung Vascular dementia (Acute) Aspiration pneumonia (Acute) Aspiration pneumonia Altered mental status (Acute) Scalp laceration Frequent falls (Acute) DM2 (diabetes mellitus, type 2) Vertebral artery occlusion HTN (hypertension) Carotid stenosis, symptomatic, with infarction Acute CVA (cerebrovascular accident) Memory impairment Transient cerebral ischemia (Acute) Blood glucose elevated (Acute) Medical History H/O: CVA (cerebrovascular accident) Vascular dementia Stroke TIA (transient ischemic attack) Acute confusion Surgical History No pertinent past surgical history Family History Father , He in his 70s of an [place] Primary Parkinson's disease Myocardial infarction Mother , age 101 No problems noted. Social History Smoking Status: Unknown if ever smoked Tobacco Type: Cigarettes Cigarettes Per Day: Pt unable to answer; Do You Dip or Chew Tobacco: No; Hx Alcohol Use: No Hx Substance Use: No Preferred Language: Sami Communication Ability: Effective Science Liaison Required: No Beliefs That Will Affect Care: Mosque Current Living Situation: Rehab Feels Safe at Home: Yes Assistive Devices: Other Allergies Allergies Allergy/AdvReac Type Severity Reaction Status Date / Time No Known Allergies Allergy Verified 01/09/25 14:31 Home Meds Home Medications Medication Instructions Recorded Confirmed insulin degludec 100 unit/mL (3 0 unit subcut UD 07/06/20 07/14/25 mL) subcutaneous pen (Tresiba FlexTouch U-100 insulin) cholecalciferol (vitamin D3) 25 25 mcg PO QAM 07/25/22 07/14/25 mcg (1,000 unit) capsule (Vitamin D3) aspirin 81 mg tablet,delayed 81 mg PO QAM 07/14/25 07/14/25 release (Ecotrin Low Strength) Results & Data (ED) Vital Signs Vital Signs - 24 hr 07/14/25 14:42 07/14/25 15:56 07/14/25 16:00 Temperature 36.8 C Temperature Source Oral Pulse Rate 66 66 Pulse Rate [Apical] 83 Respiratory Rate 18 19 Respiratory Effort / Characteristics Non-Labored Spontaneous Respiratory Depth Normal Respiratory Pattern Regular Blood Pressure 160/88 H Blood Pressure [Right Arm] 153/105 H Blood Pressure Mean 112 Blood Pressure Mean [Right Arm] 121 Blood Pressure Position [Right Arm] Lying Pulse Oximetry 96 95 Oxygen Delivery Method Room Air Room Air Sepsis Recent Fever Within 48 Hours No Sepsis New/Unexplained Change in Mental Status No Sepsis Action Taken by Nursing No Action Required 07/14/25 16:30 07/14/25 16:35 07/14/25 18:00 Temperature Temperature Source Pulse Rate 77 Pulse Rate [Apical] 63 Respiratory Rate 16 19 Respiratory Effort / Characteristics Non-Labored Spontaneous Respiratory Depth Normal Respiratory Pattern Blood Pressure 153/105 H Blood Pressure [Right Arm] 186/92 H Blood Pressure Mean 121 Blood Pressure Mean [Right Arm] 123 Blood Pressure Position [Right Arm] Lying Pulse Oximetry 95 95 Oxygen Delivery Method Room Air Room Air Sepsis Recent Fever Within 48 Hours Sepsis New/Unexplained Change in Mental Status Sepsis Action Taken by Nursing 07/14/25 18:03 07/14/25 19:18 Temperature Temperature Source Pulse Rate 66 64 Pulse Rate [Apical] Respiratory Rate 17 13 Respiratory Effort / Characteristics Respiratory Depth Respiratory Pattern Blood Pressure 182/92 H 163/105 H Blood Pressure [Right Arm] Blood Pressure Mean 122 124 Blood Pressure Mean [Right Arm] Blood Pressure Position [Right Arm] Pulse Oximetry Oxygen Delivery Method Sepsis Recent Fever Within 48 Hours Sepsis New/Unexplained Change in Mental Status Sepsis Action Taken by Nursing Laboratory Data 07/14/25 14:40 07/14/25 16:42 Lab Results 07/14/25 07/14/25 07/14/25 Range/Units 14:40 16:42 16:46 WBC 7.58 (4.8-10.8) K/ul RBC 5.01 (4.70-6.10) M/uL Hgb 15.5 (14.0-18.0) g/dl POC Hgb 15.3 (14.0-18.0) g/dl Hct 44.6 (42.0-52.0) % POC Hct 45 (42-52) % MCV 89.0 (80.0-100.0) fL MCH 30.9 (25.0-34.0) pg MCHC 34.8 (32.0-36.0) g/dL RDW Std Deviation 43.4 (36.4-46.3) fL RDW Coeff of Nikita 13.2 (11.5-14.5) % Plt Count 250 (130-400) K/uL MPV 9.8 (9.4-12.4) fL Immature Gran % (Auto) 0.3 % Neut % (Auto) 62.6 % Lymph % (Auto) 29.0 % [place] % (Auto) 6.9 % Eos % (Auto) 0.7 % Baso % (Auto) 0.5 % Neut # (Auto) 4.75 (1.40-6.50) K/uL Lymph # (Auto) 2.20 (1.20-3.40) K/uL [place] # (Auto) 0.52 (0.11-0.59) K/uL Eos # (Auto) 0.05 (0.00-0.50) K/uL Baso # (Auto) 0.04 (0.00-0.20) K/uL Immature Gran # (Auto) 0.02 (0.01-0.20) K/uL PT Cancelled 10.4 INR Cancelled 1.0 APTT Cancelled 27 PTT Ratio Cancelled 1.0 POC Sodium 137 (135-144) mmol/L Sodium 138 (136-145) mmol/L POC Potassium 4.2 (3.3-5.0) mmol/L Potassium 4.2 (3.5-5.1) mmol/L POC Chloride 102 (101-112) mmol/L Chloride 102 (98-107) mmol/L Carbon Dioxide 30 (21-32) mmol/L POC Total CO2 26 (24-31) mmol/L Anion Gap 6 (3-11) POC Anion Gap 14.0 L (16-25) mmol/L POC BUN 21 H (7-18) mg/dl BUN 20 (6-23) mg/dl Creatinine 0.81 (0.6-1.4) mg/dl POC Creatinine 1.1 (0.6-1.3) mg/dl Est Cr Clr Drug Dosing Not Reportable eGFR 90.81 BUN/Creatinine Ratio 24.7 H (10-20) Glucose 107 H (70-99(Fasting)) mg/dl POC Glucose (other) 108 H (70-99) mg/dl Calcium 9.4 (8.6-10.3) mg/dl POC Ioniz Calcium Dedrick 1.12 (1.12-1.32) mmol/l Magnesium 2.1 (1.7-2.4) mg/dl Total Bilirubin 0.5 (0.2-1.0) mg/dl AST 16 (13-39) U/L ALT 16 (7-52) U/L Alkaline Phosphatase 45 (34-104) U/L Troponin I High Sens 9.6 (0-20) pg/ml Total Protein 7.0 (6.0-8.3) gm/dl Albumin 4.2 (3.4-5.0) gm/dl Globulin 2.8 (2.5-4.0) gm/dl Albumin/Globulin Ratio 1.5 (0.9-2) Urine Color Urine Appearance (Clear) Urine pH (4.5-7.5) Ur Specific [place] (1.000-1.030) Urine Protein (Negative) Urine Glucose (UA) (Negative) Urine Ketones (Negative) Urine Blood (Negative) Urine Nitrite (Negative) Urine Bilirubin (Negative) Urine Urobilinogen (Negative) Ur Leukocyte Esterase (Negative) Urine WBC (Auto) (0-5) /hpf Urine RBC (Auto) (0-2) /hpf U Hyaline Cast (Auto) (0-2) /lpf U Epithel Cells (Auto) (0-2) /hpf Urine Bacteria (Auto) (None Seen) Urine Comment 07/14/25 Range/Units 19:16 WBC (4.8-10.8) K/ul RBC (4.70-6.10) M/uL Hgb (14.0-18.0) g/dl POC Hgb (14.0-18.0) g/dl Hct (42.0-52.0) % POC Hct (42-52) % MCV (80.0-100.0) fL MCH (25.0-34.0) pg MCHC (32.0-36.0) g/dL RDW Std Deviation (36.4-46.3) fL RDW Coeff of Nikita (11.5-14.5) % Plt Count (130-400) K/uL MPV (9.4-12.4) fL Immature Gran % (Auto) % Neut % (Auto) % Lymph % (Auto) % [place] % (Auto) % Eos % (Auto) % Baso % (Auto) % Neut # (Auto) (1.40-6.50) K/uL Lymph # (Auto) (1.20-3.40) K/uL [place] # (Auto) (0.11-0.59) K/uL Eos # (Auto) (0.00-0.50) K/uL Baso # (Auto) (0.00-0.20) K/uL Immature Gran # (Auto) (0.01-0.20) K/uL PT INR APTT PTT Ratio POC Sodium (135-144) mmol/L Sodium (136-145) mmol/L POC Potassium (3.3-5.0) mmol/L Potassium (3.5-5.1) mmol/L POC Chloride (101-112) mmol/L Chloride (98-107) mmol/L Carbon Dioxide (21-32) mmol/L POC Total CO2 (24-31) mmol/L Anion Gap (3-11) POC Anion Gap (16-25) mmol/L POC BUN (7-18) mg/dl BUN (6-23) mg/dl Creatinine (0.6-1.4) mg/dl POC Creatinine (0.6-1.3) mg/dl Est Cr Clr Drug Dosing eGFR BUN/Creatinine Ratio (10-20) Glucose (70-99(Fasting)) mg/dl POC Glucose (other) (70-99) mg/dl Calcium (8.6-10.3) mg/dl POC Ioniz Calcium Dedrick (1.12-1.32) mmol/l Magnesium (1.7-2.4) mg/dl Total Bilirubin (0.2-1.0) mg/dl AST (13-39) U/L ALT (7-52) U/L Alkaline Phosphatase (34-104) U/L Troponin I High Sens (0-20) pg/ml Total Protein (6.0-8.3) gm/dl Albumin (3.4-5.0) gm/dl Globulin (2.5-4.0) gm/dl Albumin/Globulin Ratio (0.9-2) Urine Color Yellow Urine Appearance Turbid A (Clear) Urine pH 7.0 (4.5-7.5) Ur Specific [place] > 1.045 H (1.000-1.030) Urine Protein Negative (Negative) Urine Glucose (UA) Negative (Negative) Urine Ketones Negative (Negative) Urine Blood 1+ H (Negative) Urine Nitrite Negative (Negative) Urine Bilirubin Negative (Negative) Urine Urobilinogen Negative (Negative) Ur Leukocyte Esterase 3+ H (Negative) Urine WBC (Auto) >50 H (0-5) /hpf Urine RBC (Auto) 0-2 (0-2) /hpf U Hyaline Cast (Auto) 0-2 (0-2) /lpf U Epithel Cells (Auto) 0-2 (0-2) /hpf Urine Bacteria (Auto) 4+ H (None Seen) Urine Comment Administered Medications Discontinued Medications Ioversol (Optiray 320 125ml) 119 ml IV ONCE ONE Stop: 07/14/25 17:51 Last Admin: 07/14/25 17:51 Dose: 119 ml Documented By: SOLEDAD Imaging Data Radiologist's Impression: Head CT 07/14/25 14:50 Technique: Axial computed tomography images were obtained of the brain without intravenous contrast. Findings: There is unchanged cerebral atrophy, within expected limits for the patient's age. Areas of decreased attenuation are seen within the periventricular white matter, likely representing chronic small vessel ischemic disease. There is an old infarct of the right caudate nucleus. There are suspected small old infarcts of the left frontal and left parietal lobes. There is an old infarct of the anterior right thalamus There is no definite sign of acute infarction. No intracranial hemorrhage is evident. No definite mass lesion is seen on this noncontrast examination. There is no midline shift or other form of herniation. No hydrocephalus is seen. No fracture is identified. The orbits and the visualized paranasal sinuses appear unremarkable. The mastoid air cells appear clear. Impression: 1. Cerebral atrophy, old infarcts, and chronic small vessel ischemic disease 2. Otherwise unremarkable noncontrast CT of the brain Electronically signed by Wojciech Connor 07-14-2025 6:14 PM Head CTA 07/14/25 14:50 Technique: Axial computed tomography images were obtained of the brain after the administration of intravenous contrast according to the CT angiogram protocol Findings: There is calcified plaque within the cavernous and supraclinoid segments of the internal carotid arteries bilaterally, without significant stenosis There is mild plaque within the M1 and M2 segment of the middle cerebral arteries bilaterally, without significant stenosis. The A1 segment of the right anterior cerebral artery is diminutive, likely on a congenital basis. There are severe stenoses of the P1 and P2 segments of the right posterior cerebral artery.. There is a focal severe stenosis of the P2 segment of the left posterior cerebral artery. Posterior communicating arteries are present bilaterally. There is a moderate severity stenosis of the right posterior communicating artery There are severe stenoses of the proximal and distal aspects of the basilar artery Impression: 1. Severe stenoses of the TOP STOP ATTACHER bilaterally 2. Severe stenoses of the basilar artery 3. Stenosis of the right PCOM ACT 112: Positive. There are findings on this exam that require communication between the performing entity and the patient following Patient Test Result Information Act ([place] ACT 112) guidelines. Electronically signed by Wojciech Connor 07-14-2025 6:19 PM Neck CTA 07/14/25 14:50 Technique: Axial computed tomography images were obtained of the neck after the administration of intravenous contrast according to the CT angiogram protocol Findings: There is mild plaque in the common carotid arteries bilaterally, without significant stenosis. There is partially calcified plaque within the carotid bulbs bilaterally, without significant stenosis. The remainder of the internal carotid arteries appear patent bilaterally. No stenosis of the external carotid arteries is seen The right vertebral artery is dominant. There is a moderate severity stenosis of the origin of the right vertebral artery. There is occlusion of the distal left vertebral artery. The visualized thoracic aorta appears unremarkable. There is an approximately 60% stenosis of the proximal left subclavian artery There is multilevel degenerative disc disease and osteoarthritis of the cervical spine. Impression: 1. 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 Moderate severity stenosis of the origin of the right vertebral artery 3. Moderate severity stenosis of the proximal left subclavian artery 4. Bilateral carotid atherosclerosis, without significant stenosis ACT 112: Positive. There are findings on this exam that require communication between the performing entity and the patient following Patient Test Result Information Act ([place] ACT 112) guidelines. Electronically signed by Wojciech Connor 07-14-2025 6:23 PM Discharge Plan Visit Data Chief Complaint: Altered Mental Status Stated Complaint: CONFUSION ED Provider: Clayton Rios Discharge Problem: Acute encephalopathy, Aphasia, Weakness, Vascular disease Patient Disposition: Admitted As Inpatient Condition: Fair Discharge Instructions Interventions: ED Discharge Assessment Last Done: 07/14/25 21:35
--- NOTE | 2025-07-14 15:42 | Electrocardiogram Report ---
Test Reason : Blood Pressure : */* mmHG Vent. Rate : 67 BPM Atrial Rate : 67 BPM P-R Int : 168 ms QRS Dur : 104 ms QT Int : 412 ms P-R-T Axes : 28 -47 56 degrees QTcB Int : 435 ms Normal sinus rhythm with sinus arrhythmia Left axis deviation Minimal voltage criteria for LVH, may be normal variant ( R in aVL ) Septal infarct (cited on or before 28-Jan-2025) Abnormal ECG When compared with ECG of 28-Jan-2025 16:22, Premature atrial complexes are no longer Present Questionable change in initial forces of Septal leads Confirmed by Eugenio Cerda ([id number]) on 07/14/2025 3:42:28 PM Referred By: Confirmed By: Eugenio Cerda
[2025-07-14 17:11] LABS: Alanine Aminotransferase 16 U/L (7-52); Albumin Globulin Ratio 1.5 (0.9-2); Albumin Level 4.2 gm/dl (3.4-5.0); Alkaline Phosphatase 45 U/L (34-104); Anion Gap 6 (3-11); Bilirubin,Total 0.5 mg/dl (0.2-1.0); Blood Urea Nitrogen 20 mg/dl (6-23); Calcium 9.4 mg/dl (8.6-10.3); Carbon Dioxide 30 mmol/L (21-32); Chloride 102 mmol/L (98-107); Globulin 2.8 gm/dl (2.5-4.0); Glucose 107 mg/dl (70-99(Fasting)); Magnesium 2.1 mg/dl (1.7-2.4); Potassium 4.2 mmol/L (3.5-5.1); Sodium 138 mmol/L (136-145); Total Protein 7.0 gm/dl (6.0-8.3)
[2025-07-14 17:20] LABS: INR 1.0 (0.9-1.1); Partial Thromboplastin Time 27 Seconds (21-31); Prothrombin Time 10.4 Seconds (9.0-12.0)
[2025-07-14] MEDS: OPTIRAY 320 125ml IV ONE (17:51)
--- NOTE | 2025-07-14 18:14 | CT Scan Report ---
Technique: Axial computed tomography images were obtained of the brain without intravenous contrast. Findings: There is unchanged cerebral atrophy, within expected limits for the patient's age. Areas of decreased attenuation are seen within the periventricular white matter, likely representing chronic small vessel ischemic disease. There is an old infarct of the right caudate nucleus. There are suspected small old infarcts of the left frontal and left parietal lobes. There is an old infarct of the anterior right thalamus There is no definite sign of acute infarction. No intracranial hemorrhage is evident. No definite mass lesion is seen on this noncontrast examination. There is no midline shift or other form of herniation. No hydrocephalus is seen. No fracture is identified. The orbits and the visualized paranasal sinuses appear unremarkable. The mastoid air cells appear clear. Impression: 1. Cerebral atrophy, old infarcts, and chronic small vessel ischemic disease 2. Otherwise unremarkable noncontrast CT of the brain Electronically signed by Wojciech Connor 07-14-2025 6:14 PM
--- NOTE | 2025-07-14 18:20 | CT Scan Report ---
Technique: Axial computed tomography images were obtained of the brain after the administration of intravenous contrast according to the CT angiogram protocol Findings: There is calcified plaque within the cavernous and supraclinoid segments of the internal carotid arteries bilaterally, without significant stenosis There is mild plaque within the M1 and M2 segment of the middle cerebral arteries bilaterally, without significant stenosis. The A1 segment of the right anterior cerebral artery is diminutive, likely on a congenital basis. There are severe stenoses of the P1 and P2 segments of the right posterior cerebral artery.. There is a focal severe stenosis of the P2 segment of the left posterior cerebral artery. Posterior communicating arteries are present bilaterally. There is a moderate severity stenosis of the right posterior communicating artery There are severe stenoses of the proximal and distal aspects of the basilar artery Impression: 1. Severe stenoses of the EXPERIMENTAL PHYSICIST bilaterally 2. Severe stenoses of the basilar artery 3. Stenosis of the right PCOM ACT 112: Positive. There are findings on this exam that require communication between the performing entity and the patient following Patient Test Result Information Act ([place] ACT 112) guidelines. Electronically signed by Wojciech Connor 07-14-2025 6:19 PM
--- NOTE | 2025-07-14 18:24 | CT Scan Report ---
Technique: Axial computed tomography images were obtained of the neck after the administration of intravenous contrast according to the CT angiogram protocol Findings: There is mild plaque in the common carotid arteries bilaterally, without significant stenosis. There is partially calcified plaque within the carotid bulbs bilaterally, without significant stenosis. The remainder of the internal carotid arteries appear patent bilaterally. No stenosis of the external carotid arteries is seen The right vertebral artery is dominant. There is a moderate severity stenosis of the origin of the right vertebral artery. There is occlusion of the distal left vertebral artery. The visualized thoracic aorta appears unremarkable. There is an approximately 60% stenosis of the proximal left subclavian artery There is multilevel degenerative disc disease and osteoarthritis of the cervical spine. Impression: 1. 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 Moderate severity stenosis of the origin of the right vertebral artery 3. Moderate severity stenosis of the proximal left subclavian artery 4. Bilateral carotid atherosclerosis, without significant stenosis ACT 112: Positive. There are findings on this exam that require communication between the performing entity and the patient following Patient Test Result Information Act ([place] ACT 112) guidelines. Electronically signed by Wojciech Connor 07-14-2025 6:23 PM
[2025-07-14 19:53] LABS: Appearance Urine Turbid (Clear); Bacteria Urine Automated 4+ (None Seen); Cast Urine Automated 0-2 /lpf (0-2); Epithelial Cell Urine Auto 0-2 /hpf (0-2); Glucose Urine UA Negative (Negative); RBC Urine Automated 0-2 /hpf (0-2); WBC Urine Automated >50 /hpf (0-5)
--- NOTE | 2025-07-14 19:56 | History & Physical Report ---
Date of Service July 14, 2025 Assessment & Plan (1) Acute encephalopathy: Plan: Assessment and plan below following discussion of case with ED provider and reviewing patient history/pertinent normal/abnormal diagnostic test results. 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 Harvey of [facility] [place] who recommends MRI of the brain.) Basal bolus insulin ISS BG goal 110-140, carb count coverage DVT prophylaxis. Lovenox subcu DNR Patient's requesting updates for providers. Ms. Ana Maria Oconnor, contact number [phone]. Text document was generated using [employer] voice recognition software. It may contain grammatical or spelling errors. Kindly contact undersigned for clarification of any documentation item in question. ADDENDUM : (07/15, 6AM) Dr. Harvey of Neurology given update regarding patient in AM. Clarified with specialist that patient currently on aspirin monotherapy. Dr. Harvey recommends DAPT (addition of Plavix to aspirin) for life given PVD extent on review of CTAs. History of Present Illness Chief Complaint: I do not know as per patient Slow to respond, staring into space as per Primary Care Provider: Gera Hanley, DO History obtained from patient, family, and records. Limited history from patient secondary to dementia. Medical history significant for mild , hypertension, hyperlipidemia, left MCA ischemic stroke status post left ICA stent, carotid artery disease, vascular dementia, DM 2 insulin requiring, anxiety/mood disorder, past tobacco abuse. Last confinement January 2025 for aspiration pneumonia and altered mental status. Patient discharged to [facility] prior to returning home last March 2025. Patient has not been right in the last couple of nights. Patient staring into space and not as responsive. Slow to answer and to move around as per . No witnessed seizures. Patient without other complaints. Compliant with home medications. Usual left-sided weakness as per from old stroke. EMS called to patient's home. Medical History as above Surgical History : Vascular procedures Family History : Heart disease Personal/Social history : Past tobacco abuse, daily alcohol intake denies abuse as per , retired [employer] employee Allergies Allergy/AdvReac Type Severity Reaction Status Date / Time No Known Allergies Allergy Verified 01/09/25 14:31 Home Medications Medication Instructions Recorded Confirmed Type insulin degludec 100 unit/mL (3 0 unit subcut UD 07/06/20 07/14/25 History mL) subcutaneous pen (Tresiba FlexTouch U-100 insulin) cholecalciferol (vitamin D3) 25 25 mcg PO QAM 07/25/22 07/14/25 History mcg (1,000 unit) capsule (Vitamin D3) aspirin 81 mg tablet,delayed 81 mg PO QAM 07/14/25 07/14/25 History release (Ecotrin Low Strength) Past Med/Surg History Problem List (Updated 07/14/25 @ 22:06 by Clayton Rios DO) Vascular disease (Acute) Weakness (Acute) Aphasia (Acute) Acute encephalopathy (Acute) Abnormal CT scan of lung Vascular dementia (Acute) Aspiration pneumonia (Acute) Aspiration pneumonia Altered mental status (Acute) Scalp laceration Frequent falls (Acute) DM2 (diabetes mellitus, type 2) Vertebral artery occlusion HTN (hypertension) Carotid stenosis, symptomatic, with infarction Acute CVA (cerebrovascular accident) Memory impairment Transient cerebral ischemia (Acute) Blood glucose elevated (Acute) Medical History H/O: CVA (cerebrovascular accident) Vascular dementia Stroke TIA (transient ischemic attack) Acute confusion Surgical History No pertinent past surgical history Family History Father , He in his 70s of an [place] Primary Parkinson's disease Myocardial infarction Mother , age 101 No problems noted. Social History Smoking Status: Unknown if ever smoked Tobacco Type: Cigarettes Cigarettes Per Day: Pt unable to answer; Second Hand Exposure: No; Do You Dip or Chew Tobacco: No; Tobacco Cessation Education Requested by Patient: No Hx Alcohol Use: No Hx Substance Use: No Preferred Language: Austrian Communication Ability: Effective Net Developer Consultant Required: No Beliefs That Will Affect Care: None Current Living Situation: Spouse Other Information That Helps Us Care for You: No Feels Safe at Home: Yes Safety Concerns: Feels Safe At This Time Assistive Devices: Walker Review of Systems Review of Systems: Could not be reliably obtained Physical Exam Physical Exam: GENERAL: Demented, flat affect, no respiratory distress SKIN: Normal color, warm HEENT: [place] palpebral conjunctivae, no ptosis, dry buccal mucosa NECK : Supple, no tenderness CHEST : CTA, no tenderness HEART : RRR, systolic murmur ABDOMEN: Some distention, nontender EXTREMITIES : No LE swelling/tenderness, no other conspicuous deformities noted NEUROLOGIC : Demented, no facial asymmetry, gait and stance not assessed Results & Data Results & Data Vital Signs (Past 12 Hours) Vital Signs Temp Pulse Pulse Resp BP BP Pulse Ox 07/14/25 18:00 63 19 186/92 H 95 07/14/25 16:35 95 07/14/25 16:00 83 19 153/105 H 95 07/14/25 15:56 66 07/14/25 14:42 36.8 C 66 18 160/88 H 96 O2 Del Method 07/14/25 18:00 Room Air 07/14/25 16:35 Room Air 07/14/25 16:00 Room Air 07/14/25 15:56 07/14/25 14:42 Room Air Laboratory Results Laboratory Results WBC 7.58 K/ul (4.8-10.8) 07/14/25 14:40 RBC 5.01 M/uL (4.70-6.10) 07/14/25 14:40 Hgb 15.5 g/dl (14.0-18.0) 07/14/25 14:40 POC Hgb 15.3 g/dl (14.0-18.0) 07/14/25 16:46 Hct 44.6 % (42.0-52.0) 07/14/25 14:40 POC Hct 45 % (42-52) 07/14/25 16:46 MCV 89.0 fL (80.0-100.0) 07/14/25 14:40 MCH 30.9 pg (25.0-34.0) 07/14/25 14:40 MCHC 34.8 g/dL (32.0-36.0) 07/14/25 14:40 RDW Std Deviation 43.4 fL (36.4-46.3) 07/14/25 14:40 RDW Coeff of Nikita 13.2 % (11.5-14.5) 07/14/25 14:40 Plt Count 250 K/uL (130-400) 07/14/25 14:40 MPV 9.8 fL (9.4-12.4) 07/14/25 14:40 Immature Gran % (Auto) 0.3 % 07/14/25 14:40 Neut % (Auto) 62.6 % 07/14/25 14:40 Lymph % (Auto) 29.0 % 07/14/25 14:40 Norton % (Auto) 6.9 % 07/14/25 14:40 Eos % (Auto) 0.7 % 07/14/25 14:40 Baso % (Auto) 0.5 % 07/14/25 14:40 Neut # (Auto) 4.75 K/uL (1.40-6.50) 07/14/25 14:40 Lymph # (Auto) 2.20 K/uL (1.20-3.40) 07/14/25 14:40 Norton # (Auto) 0.52 K/uL (0.11-0.59) 07/14/25 14:40 Eos # (Auto) 0.05 K/uL (0.00-0.50) 07/14/25 14:40 Baso # (Auto) 0.04 K/uL (0.00-0.20) 07/14/25 14:40 Immature Gran # (Auto) 0.02 K/uL (0.01-0.20) 07/14/25 14:40 PT 10.4 Seconds (9.0-12.0) 07/14/25 16:42 INR 1.0 (0.9-1.1) 07/14/25 16:42 APTT 27 Seconds (21-31) 07/14/25 16:42 PTT Ratio 1.0 07/14/25 16:42 POC Sodium 137 mmol/L (135-144) 07/14/25 16:46 Sodium 138 mmol/L (136-145) 07/14/25 16:42 POC Potassium 4.2 mmol/L (3.3-5.0) 07/14/25 16:46 Potassium 4.2 mmol/L (3.5-5.1) 07/14/25 16:42 POC Chloride 102 mmol/L (101-112) 07/14/25 16:46 Chloride 102 mmol/L (98-107) 07/14/25 16:42 Carbon Dioxide 30 mmol/L (21-32) 07/14/25 16:42 POC Total CO2 26 mmol/L (24-31) 07/14/25 16:46 Anion Gap 6 (3-11) 07/14/25 16:42 POC Anion Gap 14.0 mmol/L (16-25) L 07/14/25 16:46 POC BUN 21 mg/dl (7-18) H 07/14/25 16:46 BUN 20 mg/dl (6-23) 07/14/25 16:42 Creatinine 0.81 mg/dl (0.6-1.4) 07/14/25 16:42 POC Creatinine 1.1 mg/dl (0.6-1.3) 07/14/25 16:46 Est Cr Clr Drug Dosing Not Reportable 07/14/25 16:42 eGFR 90.81 07/14/25 16:42 BUN/Creatinine Ratio 24.7 (10-20) H 07/14/25 16:42 Glucose 107 mg/dl (70-99(Fasting)) H 07/14/25 16:42 POC Glucose (other) 108 mg/dl (70-99) H 07/14/25 16:46 Calcium 9.4 mg/dl (8.6-10.3) 07/14/25 16:42 POC Ioniz Calcium [place] 1.12 mmol/l (1.12-1.32) 07/14/25 16:46 Magnesium 2.1 mg/dl (1.7-2.4) 07/14/25 16:42 Total Bilirubin 0.5 mg/dl (0.2-1.0) 07/14/25 16:42 AST 16 U/L (13-39) 07/14/25 16:42 ALT 16 U/L (7-52) 07/14/25 16:42 Alkaline Phosphatase 45 U/L (34-104) 07/14/25 16:42 Troponin I High Sens 9.6 pg/ml (0-20) 07/14/25 16:42 Total Protein 7.0 gm/dl (6.0-8.3) 07/14/25 16:42 Albumin 4.2 gm/dl (3.4-5.0) 07/14/25 16:42 Globulin 2.8 gm/dl (2.5-4.0) 07/14/25 16:42 Albumin/Globulin Ratio 1.5 (0.9-2) 07/14/25 16:42 Urine Color Yellow 07/14/25 19:16 Urine Appearance Turbid (Clear) A 07/14/25 19:16 Urine pH 7.0 (4.5-7.5) 07/14/25 19:16 Ur Specific [place] > 1.045 (1.000-1.030) H 07/14/25 19:16 Urine Protein Negative (Negative) 07/14/25 19:16 Urine Glucose (UA) Negative (Negative) 07/14/25 19:16 Urine Ketones Negative (Negative) 07/14/25 19:16 Urine Blood 1+ (Negative) H 07/14/25 19:16 Urine Nitrite Negative (Negative) 07/14/25 19:16 Urine Bilirubin Negative (Negative) 07/14/25 19:16 Urine Urobilinogen Negative (Negative) 07/14/25 19:16 Ur Leukocyte Esterase 3+ (Negative) H 07/14/25 19:16 Urine WBC (Auto) >50 /hpf (0-5) H 07/14/25 19:16 Urine RBC (Auto) 0-2 /hpf (0-2) 07/14/25 19:16 U Hyaline Cast (Auto) 0-2 /lpf (0-2) 07/14/25 19:16 U Epithel Cells (Auto) 0-2 /hpf (0-2) 07/14/25 19:16 Urine Bacteria (Auto) 4+ (None Seen) H 07/14/25 19:16 Urine Comment 07/14/25 19:[address] 07/14/25 14:50 Technique: Axial computed tomography images were obtained of the brain without intravenous contrast. Findings: There is unchanged cerebral atrophy, within expected limits for the patient's age. Areas of decreased attenuation are seen within the periventricular white matter, likely representing chronic small vessel ischemic disease. There is an old infarct of the right caudate nucleus. There are suspected small old infarcts of the left frontal and left parietal lobes. There is an old infarct of the anterior right thalamus There is no definite sign of acute infarction. No intracranial hemorrhage is evident. No definite mass lesion is seen on this noncontrast examination. There is no midline shift or other form of herniation. No hydrocephalus is seen. No fracture is identified. The orbits and the visualized paranasal sinuses appear unremarkable. The mastoid air cells appear clear. Impression: 1. Cerebral atrophy, old infarcts, and chronic small vessel ischemic disease 2. Otherwise unremarkable noncontrast CT of the brain Electronically signed by Wojciech Connor 07-14-2025 6:14 PM Head CTA 07/14/25 14:50 Technique: Axial computed tomography images were obtained of the brain after the administration of intravenous contrast according to the CT angiogram protocol Findings: There is calcified plaque within the cavernous and supraclinoid segments of the internal carotid arteries bilaterally, without significant stenosis There is mild plaque within the M1 and M2 segment of the middle cerebral arteries bilaterally, without significant stenosis. The A1 segment of the right anterior cerebral artery is diminutive, likely on a congenital basis. There are severe stenoses of the P1 and P2 segments of the right posterior cerebral artery.. There is a focal severe stenosis of the P2 segment of the left posterior cerebral artery. Posterior communicating arteries are present bilaterally. There is a moderate severity stenosis of the right posterior communicating artery There are severe stenoses of the proximal and distal aspects of the basilar artery Impression: 1. Severe stenoses of the TEAM LEAD bilaterally 2. Severe stenoses of the basilar artery 3. Stenosis of the right PCOM ACT 112: Positive. There are findings on this exam that require communication between the performing entity and the patient following Patient Test Result Information Act ([place] ACT 112) guidelines. Electronically signed by Wojciech Connor 07-14-2025 6:19 PM Neck CTA 07/14/25 14:50 Technique: Axial computed tomography images were obtained of the neck after the administration of intravenous contrast according to the CT angiogram protocol Findings: There is mild plaque in the common carotid arteries bilaterally, without significant stenosis. There is partially calcified plaque within the carotid bulbs bilaterally, without significant stenosis. The remainder of the internal carotid arteries appear patent bilaterally. No stenosis of the external carotid arteries is seen The right vertebral artery is dominant. There is a moderate severity stenosis of the origin of the right vertebral artery. There is occlusion of the distal left vertebral artery. The visualized thoracic aorta appears unremarkable. There is an approximately 60% stenosis of the proximal left subclavian artery There is multilevel degenerative disc disease and osteoarthritis of the cervical spine. Impression: 1. 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 Moderate severity stenosis of the origin of the right vertebral artery 3. Moderate severity stenosis of the proximal left subclavian artery 4. Bilateral carotid atherosclerosis, without significant stenosis ACT 112: Positive. There are findings on this exam that require communication between the performing entity and the patient following Patient Test Result Information Act ([place] ACT 112) guidelines. Electronically signed by Wojciech Connor 07-14-2025 6:23 PM Diagnostic Findings EKG as per my interpretation :Rate 65, NSR, LAD, LAFB, LVH, septal infarct, no ischemia
[2025-07-14] MEDS ORDERED: PHARMACIST DISCHARGE MED REC CONSULT PRN (21:06)
[2025-07-14] MEDS ORDERED: ACETAMINOPHEN 325 MG TAB PO PRN (21:38)
[2025-07-14] MEDS ORDERED: PROMETHAZINE 6.25 MG/50.25 ML BAG IV PRN (21:38)
[2025-07-14] MEDS ORDERED: CARBOHYDRATES FOR HYPOGLYCEMIA PO PRN (22:12)
[2025-07-14] MEDS ORDERED: DEXTROSE 50% 50 ML SYRINGE IV PRN (22:12)
[2025-07-14] MEDS ORDERED: GLUCOSE 10 TAB/TUBE PO PRN (22:12)
[2025-07-14] MEDS ORDERED: GLUCAGON FOR INJ 1 MG VIAL SQ PRN (22:12)
[2025-07-14] MEDS ORDERED: GLUCOSE 40% GEL 15 GM TUBE PO PRN (22:12)
[2025-07-14] MEDS: SODIUM CHLORIDE 0.9% 1,000 ML IV ONE (22:37)
[2025-07-14] MEDS: INSULIN ASPART PER UNIT CHARGE SC SCH (22:43)
[2025-07-14] MEDS: Patient's HEIGHT &/or WEIGHT Needed STA ×2 (23:24)
[2025-07-14] MEDS: AZTREONAM 2,000 MG in DEXTROSE 5% MINI-B 100 ML IV SCH (23:55)
--- NOTE | 2025-07-15 00:32 | Magnetic Resonance Report ---
Exam(s): MRI HEAD Without Contrast EXAM: MR Head Without Intravenous Contrast CLINICAL HISTORY: Reason for exam: stroke protocol. TECHNIQUE: Magnetic resonance images of the head/brain without intravenous contrast in multiple planes. COMPARISON: Prior head CT from July 14, 2025. FINDINGS: Brain: Remote ischemic injuries of the cerebellum. Remote ischemic injury of the right capsule. Remote ischemic injury of the left frontal and parietal lobes with encephalomalacia and gliosis. Advanced nonspecific white matter changes. No mass. No hemorrhage. No acute infarct. The flow voids at the base the brain are intact. Ventricles: Unremarkable. No ventriculomegaly. Bones/joints: Unremarkable. No acute fracture. Sinuses: Chronic right sphenoid sinusitis. No acute sinusitis. Mastoid air cells: Unremarkable as visualized. No mastoid effusion. Orbits: Unremarkable as visualized. IMPRESSION: No evidence of acute intracranial pathology. Electronically signed by: Delisa Kovacs MD 07/15/25 00:30 AM
[2025-07-15 06:53] LABS: Hematocrit (blood only) 45.1 % (42.0-52.0); Hemoglobin 15.9 g/dl (14.0-18.0); Immature Granulocytes # (auto) 0.03 K/uL (0.01-0.20); Immature Granulocytes % (auto) 0.3 %; Mean Corpuscular Hemoglobin 30.9 pg (25.0-34.0); Mean Corpuscular Volume 87.7 fL (80.0-100.0); Platelet Count 231 K/uL (130-400); RDW Standard Deviation 42.2 fL (36.4-46.3); Red Blood Count 5.14 M/uL (4.70-6.10); White Blood Count 9.23 K/ul (4.8-10.8)
[2025-07-15 07:22] LABS: Anion Gap 9.0 (3-11); Blood Urea Nitrogen 16.0 mg/dl (6-23); Calcium 9.4 mg/dl (8.6-10.3); Carbon Dioxide 25.0 mmol/L (21-32); Chloride 102.0 mmol/L (98-107); Cholesterol 291.0 mg/dl (0-200); Creatinine Clr Calc Pharmacy 80.7 ml/min; Glucose 130.0 mg/dl (70-99(Fasting)); HDL Cholesterol 53.0 mg/dl; Potassium 4.0 mmol/L (3.5-5.1); Sodium 136.0 mmol/L (136-145); Triglycerides 115.0 mg/dl (0-150)
[2025-07-15 07:55] LABS: Hemoglobin A1C 7.0 % (4.5-5.6)
--- NOTE | 2025-07-15 07:58 | Hospitalist Progress Note ---
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 Harvey of [facility] who recommends MRI of the brain.) Admitting provider communicated w/ neurology - Dr. Harvey of Neurology given update regarding patient in AM. Clarified with specialist that patient currently on aspirin monotherapy. Dr. Harvey recommends DAPT (addition of Plavix to aspirin) for life given PVD extent on review of CTAs. MR brain - FINDINGS: Brain: Remote ischemic injuries of the cerebellum. Remote ischemic injury of the right capsule. Remote ischemic injury of the left frontal and parietal lobes with encephalomalacia and gliosis. Advanced nonspecific white matter changes. No mass. No hemorrhage. No acute infarct. The flow voids at the base the brain are intact. Ventricles: Unremarkable. No ventriculomegaly. Bones/joints: Unremarkable. No acute fracture. Sinuses: Chronic right sphenoid sinusitis. No acute sinusitis. Mastoid air cells: Unremarkable as visualized. No mastoid effusion. Orbits: Unremarkable as visualized. IMPRESSION: No evidence of acute intracranial pathology. Neurology consult - (1) Acute encephalopathy: etiology secondary to acute urinary tract infection. UA with greater than 50 WBC, 4+ bacteria, and 3+ leukocyte esterase. -treatment of UTI per primary team (2) H/O: CVA (cerebrovascular accident): The patient has a history of multiple chronic stroke, right periventricular, right thalamic, right occipital (01/11/2025), left occipital, left frontal, left MCA, and right frontal ( 07/2022). 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 Patient was only taking aspirin prior to arrival. -recommend aspirin 81 mg daily -recommend clopidogrel 75 mg daily -recommend atorvastatin 80 mg daily - recommend Holter monitor to rule out atrial fibrillation -if no atrial fibrillation is found on Holter monitor, patient will need a loop recorder placement - recommend outpatient Neurology evaluation for vascular dementia. At present, I suspect the patient's encephalopathy is due to acute urinary tract infection on top of but diminished baseline Hypertension, elevated secondary to illness mild hyperlipidemia on statin Rx hx carotid artery disease DM2 insulin requiring, reasonable control as of recent hemoglobin A1c of 7.27 January 2025 , Basal bolus insulin ISS BG goal 110-140, carb count coverage past tobacco abuse DVT prophylaxis. Lovenox subcu DNR Patient's - Ms. Ana Maria Oconnor, contact number [phone]. Admission and Anticipated Discharge Date Admission Date: July 14, 2025 Subjective Pt seen in follow up of encephalopathy, stroke -like symptoms, diagnosed w/ UTI on admission Currently lying in bed in NAD He denies any fever, chills, chest pain, shortness of breath, denies any abd. pain His response is clear but slow, he has good eye contact. Occasionally makes "kissing lips" sign Follows command, moves all the extremities when asked. Discussed w/ RN in detail. Contacted by neurology - and recommendations given , no cva, encephalopathy likely secondary to UTI Review of Systems Review of Systems: All systems reviewed & are unremarkable except as noted in Subjective Physical Exam Physical Exam: GENERAL: WD/WN M in NAD SKIN: Normal color, warm HEENT: [place] palpebral conjunctivae, no ptosis, dry buccal mucosa NECK : Supple, no tenderness CHEST : CTA, no tenderness HEART : RRR, systolic murmur ABDOMEN: Soft, nontender EXTREMITIES : No LE swelling/tenderness, no other conspicuous deformities noted NEUROLOGIC : awake, answers some questions appropriately, answers are slow and short, no facial asymmetry, follows simple commands, moves all 4 extremities when asked Results & Data Results & Data Vital Signs (Past 12 Hours) Vital Signs Temp Pulse Pulse Resp BP BP Pulse Ox 07/15/25 07:09 85 07/15/25 02:48 36.7 C 83 18 160/92 H 93 07/14/25 22:15 07/14/25 22:12 07/14/25 22:00 36.5 C 71 18 164/89 H 96 07/14/25 21:58 65 07/14/25 20:51 68 15 97 07/14/25 20:12 65 12 171/115 H Pulse Ox O2 Del Method O2 Del Method 07/15/25 07:09 07/15/25 02:48 Room Air 07/14/25 22:15 Room Air 07/14/25 22:12 95 Room Air 07/14/25 22:00 Room Air 07/14/25 21:58 07/14/25 20:51 Room Air 07/14/25 20:12 Laboratory Results 07/15/25 07/14/25 07/14/25 Range/Units 06:25 22:42 19:16 WBC 9.23 (4.8-10.8) K/ul RBC 5.14 (4.70-6.10) M/uL Hgb 15.9 (14.0-18.0) g/dl POC Hgb (14.0-18.0) g/dl Hct 45.1 (42.0-52.0) % POC Hct (42-52) % MCV 87.7 (80.0-100.0) fL MCH 30.9 (25.0-34.0) pg MCHC 35.3 (32.0-36.0) g/dL RDW Std Deviation 42.2 (36.4-46.3) fL RDW Coeff of Nikita 13.1 (11.5-14.5) % Plt Count 231 (130-400) K/uL MPV 9.1 L (9.4-12.4) fL Immature Gran % (Auto) 0.3 % Neut % (Auto) 57.6 % Lymph % (Auto) 31.1 % [place] % (Auto) 9.1 % Eos % (Auto) 1.4 % Baso % (Auto) 0.5 % Neut # (Auto) 5.31 (1.40-6.50) K/uL Lymph # (Auto) 2.87 (1.20-3.40) K/uL [place] # (Auto) 0.84 H (0.11-0.59) K/uL Eos # (Auto) 0.13 (0.00-0.50) K/uL Baso # (Auto) 0.05 (0.00-0.20) K/uL Immature Gran # (Auto) 0.03 (0.01-0.20) K/uL PT INR APTT PTT Ratio POC Sodium (135-144) mmol/L Sodium 136 (136-145) mmol/L POC Potassium (3.3-5.0) mmol/L Potassium 4.0 (3.5-5.1) mmol/L POC Chloride (101-112) mmol/L Chloride 102 (98-107) mmol/L Carbon Dioxide 25 (21-32) mmol/L POC Total CO2 (24-31) mmol/L Anion Gap 9 (3-11) POC Anion Gap (16-25) mmol/L POC BUN (7-18) mg/dl BUN 16 (6-23) mg/dl Creatinine 0.76 (0.6-1.4) mg/dl POC Creatinine (0.6-1.3) mg/dl Est Cr Clr Drug Dosing 80.7 eGFR 92.57 BUN/Creatinine Ratio 21.1 H (10-20) Glucose 130 H (70-99(Fasting)) mg/dl POC Glucose 97 (70-99) mg/dl POC Glucose (other) (70-99) mg/dl Estimat Average Glucose 154 mg/dl Hemoglobin A1c 7.0 H (4.5-5.6) % Calcium 9.4 (8.6-10.3) mg/dl POC Ioniz Calcium Dedrick (1.12-1.32) mmol/l Magnesium (1.7-2.4) mg/dl Total Bilirubin (0.2-1.0) mg/dl AST (13-39) U/L ALT (7-52) U/L Alkaline Phosphatase (34-104) U/L Troponin I High Sens (0-20) pg/ml Total Protein (6.0-8.3) gm/dl Albumin (3.4-5.0) gm/dl Globulin (2.5-4.0) gm/dl Albumin/Globulin Ratio (0.9-2) Triglycerides 115 (0-150) mg/dl Cholesterol 291 H (0-200) mg/dl LDL Cholesterol, Calc 215 mg/dl VLDL Cholesterol, Calc 23 (0-30) mg/dl HDL Cholesterol 53 mg/dl Cholesterol/HDL Ratio 5.5 H (0-5) Urine Color Yellow Urine Appearance Turbid A (Clear) Urine pH 7.0 (4.5-7.5) Ur Specific [place] > 1.045 H (1.000-1.030) Urine Protein Negative (Negative) Urine Glucose (UA) Negative (Negative) Urine Ketones Negative (Negative) Urine Blood 1+ H (Negative) Urine Nitrite Negative (Negative) Urine Bilirubin Negative (Negative) Urine Urobilinogen Negative (Negative) Ur Leukocyte Esterase 3+ H (Negative) Urine WBC (Auto) >50 H (0-5) /hpf Urine RBC (Auto) 0-2 (0-2) /hpf U Hyaline Cast (Auto) 0-2 (0-2) /lpf U Epithel Cells (Auto) 0-2 (0-2) /hpf Urine Bacteria (Auto) 4+ H (None Seen) Urine Comment 07/14/25 07/14/25 07/14/25 Range/Units 16:46 16:42 14:40 WBC 7.58 (4.8-10.8) K/ul RBC 5.01 (4.70-6.10) M/uL Hgb 15.5 (14.0-18.0) g/dl POC Hgb 15.3 (14.0-18.0) g/dl Hct 44.6 (42.0-52.0) % POC Hct 45 (42-52) % MCV 89.0 (80.0-100.0) fL MCH 30.9 (25.0-34.0) pg MCHC 34.8 (32.0-36.0) g/dL RDW Std Deviation 43.4 (36.4-46.3) fL RDW Coeff of Nikita 13.2 (11.5-14.5) % Plt Count 250 (130-400) K/uL MPV 9.8 (9.4-12.4) fL Immature Gran % (Auto) 0.3 % Neut % (Auto) 62.6 % Lymph % (Auto) 29.0 % [place] % (Auto) 6.9 % Eos % (Auto) 0.7 % Baso % (Auto) 0.5 % Neut # (Auto) 4.75 (1.40-6.50) K/uL Lymph # (Auto) 2.20 (1.20-3.40) K/uL [place] # (Auto) 0.52 (0.11-0.59) K/uL Eos # (Auto) 0.05 (0.00-0.50) K/uL Baso # (Auto) 0.04 (0.00-0.20) K/uL Immature Gran # (Auto) 0.02 (0.01-0.20) K/uL PT 10.4 Cancelled INR 1.0 Cancelled APTT 27 Cancelled PTT Ratio 1.0 Cancelled POC Sodium 137 (135-144) mmol/L Sodium 138 (136-145) mmol/L POC Potassium 4.2 (3.3-5.0) mmol/L Potassium 4.2 (3.5-5.1) mmol/L POC Chloride 102 (101-112) mmol/L Chloride 102 (98-107) mmol/L Carbon Dioxide 30 (21-32) mmol/L POC Total CO2 26 (24-31) mmol/L Anion Gap 6 (3-11) POC Anion Gap 14.0 L (16-25) mmol/L POC BUN 21 H (7-18) mg/dl BUN 20 (6-23) mg/dl Creatinine 0.81 (0.6-1.4) mg/dl POC Creatinine 1.1 (0.6-1.3) mg/dl Est Cr Clr Drug Dosing Not Reportable eGFR 90.81 BUN/Creatinine Ratio 24.7 H (10-20) Glucose 107 H (70-99(Fasting)) mg/dl POC Glucose (70-99) mg/dl POC Glucose (other) 108 H (70-99) mg/dl Estimat Average Glucose mg/dl Hemoglobin A1c (4.5-5.6) % Calcium 9.4 (8.6-10.3) mg/dl POC Ioniz Calcium Dedrick 1.12 (1.12-1.32) mmol/l Magnesium 2.1 (1.7-2.4) mg/dl Total Bilirubin 0.5 (0.2-1.0) mg/dl AST 16 (13-39) U/L ALT 16 (7-52) U/L Alkaline Phosphatase 45 (34-104) U/L Troponin I High Sens 9.6 (0-20) pg/ml Total Protein 7.0 (6.0-8.3) gm/dl Albumin 4.2 (3.4-5.0) gm/dl Globulin 2.8 (2.5-4.0) gm/dl Albumin/Globulin Ratio 1.5 (0.9-2) Triglycerides (0-150) mg/dl Cholesterol (0-200) mg/dl LDL Cholesterol, Calc mg/dl VLDL Cholesterol, Calc (0-30) mg/dl HDL Cholesterol mg/dl Cholesterol/HDL Ratio (0-5) Urine Color Urine Appearance (Clear) Urine pH (4.5-7.5) Ur Specific [place] (1.000-1.030) Urine Protein (Negative) Urine Glucose (UA) (Negative) Urine Ketones (Negative) Urine Blood (Negative) Urine Nitrite (Negative) Urine Bilirubin (Negative) Urine Urobilinogen (Negative) Ur Leukocyte Esterase (Negative) Urine WBC (Auto) (0-5) /hpf Urine RBC (Auto) (0-2) /hpf U Hyaline Cast (Auto) (0-2) /lpf U Epithel Cells (Auto) (0-2) /hpf Urine Bacteria (Auto) (None Seen) Urine Comment Medications Administered Current Inpatient Medications Acetaminophen (Acetaminophen 325 Mg Tab) 650 mg PO QID PRN PRN Reason: pain/fever Stop: 08/13/25 21:37 Aspirin (Aspirin 81 Mg Ectab) [facility] [place]: 08/14/25 08:59 Clopidogrel Bisulfate (Clopidogrel Bisulfate 75 Mg Tab) [facility] [place]: 08/14/25 06:29 Dextrose (Dextrose 50% 50 Ml Syringe) 25 - 50 ml IV UD PRN; Protocol PRN Reason: Hypoglycemia Protocol Stop: 08/13/25 22:11 Enoxaparin Sodium (Enoxaparin Inj 40 Mg/0.4 Ml Syr) 40 mg SQ QAM [facility] Stop: 08/14/25 08:59 Glucagon (Glucagon For Inj 1 Mg Vial) 1 mg SQ UD PRN; Protocol PRN Reason: Hypoglycemia Protocol Stop: 08/13/25 22:11 Glucose (Glucose 40% Gel 15 Gm Tube) 15 - 30 gm PO UD PRN; Protocol PRN Reason: Hypoglycemia Protocol Stop: 08/13/25 22:11 Glucose (Glucose 10 Tab/Tube) 4 - 8 tab PO UD PRN; Protocol PRN Reason: Hypoglycemia Protocol Stop: 08/13/25 22:11 Sodium Chloride (Nss) 1,000 mls @ 50 mls/hr IV .Q20H ONE Stop: 07/15/25 15:58 Last Admin: 07/14/25 22:37 Dose: 50 mls/hr Promethazine HCl (Phenergan) 6.25 mg in 50.25 mls @ 201 mls/hr IV Q6H PRN PRN Reason: Nausea And Vomiting Stop: 08/13/25 21:37 Aztreonam 2,000 mg/ Dextrose 100 mls @ 100 mls/hr IV Q8H PAO Stop: 07/24/25 22:59 Last Infusion: 07/15/25 00:55 Dose: Infused Insulin Aspart (Insulin Aspart Per Unit Charge) 0 units SC Q6 PAO Stop: 08/13/25 22:11 Last Admin: 07/14/25 22:43 Dose: Not Given Miscellaneous (Carbohydrates For Hypoglycemia ) 15 - 30 gm PO UD PRN PRN Reason: Hypoglycemia Protocol Stop: 08/13/25 22:11 Miscellaneous Information (Pharmacist Discharge Med Rec Consult) 1 each N/A UD PRN PRN Reason: Consult Stop: 08/13/25 21:05
[2025-07-15] MEDS: LANTUS PER UNIT CHARGE SQ SCH (09:54)
[2025-07-15] MEDS: ENOXAPARIN INJ 40 MG/0.4 ML SYR SQ SCH (09:55)
--- NOTE | 2025-07-15 10:55 | Neurology Consultation ---
Date of Consultation July 15, 2025 Assessment & Plan (1) Acute encephalopathy: etiology secondary to acute urinary tract infection. UA with greater than 50 WBC, 4+ bacteria, and 3+ leukocyte esterase. -treatment of UTI per primary team (2) H/O: CVA (cerebrovascular accident): The patient has a history of multiple chronic stroke, right periventricular, right thalamic, right occipital (01/11/2025), left occipital, left frontal, left MCA, and right frontal ( 07/2022). 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 Patient was only taking aspirin prior to arrival. -recommend aspirin 81 mg daily -recommend clopidogrel 75 mg daily -recommend atorvastatin 80 mg daily - recommend Holter monitor to rule out atrial fibrillation -if no atrial fibrillation is found on Holter monitor, patient will need a loop recorder placement - recommend outpatient Neurology evaluation for vascular dementia. At present, I suspect the patient's encephalopathy is due to acute urinary tract infection on top of but diminished baseline -I attempted to update the patient's regarding my recommendations but the number went straight to voicemail I relayed my recommendations to Dr. Chuck Huynh via tiger text. Thank you for this consult. Please call with questions. Telehealth Consultation Telehealth Information Telehealth Information: I performed this visit using a real-time telehealth connection between my location and the patients location ([facility]). After connecting through interactive tele-video, patient was identified by name and date of and/or wristband check.Patient (or authorized healthcare territory service representative) was informed that this was a telemedicine visit and it was being conducted confidentially over secure lines. My office door was closed and no o ne else was present in the room with me.Patient (or authorized healthcare territory service representative) provided consent to proceed with the visit, expressed an understanding of privacy and security of the telemedicine visit, and gave permission to have a hospital territory service representative in the room in order to assist with the visit and to conduct portions of the visit, as needed. I informed the patient (or authorized healthcare territory service representative) that I reviewed their record and presented the opportunity for them to ask any questions regarding the visit today. The patient agreed to participate. History of Present Illness Reason for Consultation: encephalopathy Attending Physician: Chuck Huynh MD History of Present Illness Brandon Oconnor is a 79-year-old male with a past medical history of right periventricular, right thalamic, and right occipital infarct ( 01/11/2025), left occipital, left frontal, left MCA, and right frontal infarct ( 07/2022), left vertebral artery occlusion, right vertebral artery stenoses, left subclavian artery stenoses, bilateral carotid atherosclerosis, diabetes mellitus type 2 who presents to [facility] on 07/14/2025 with acute onset encephalopathy. He was found to have a urinary tract infection. MRI brain was negative for acute stroke. CT angiogram head and neck revealed left vertebral artery occlusion, right vertebral artery and left subclavian artery stenoses as well as bilateral carotid atherosclerosis. Per report, the patient was only on aspirin 81 mg at home. I saw the patient at bedside on tele video, he was unable to hear me and could not provide history this was obtained from chart review. I attempted to call his at the number listed in the chart to obtain collateral history but there was a busy signal and no opportunity to leave a voicemail. Allergies Allergy/AdvReac Type Severity Reaction Status Date / Time No Known Allergies Allergy Verified 01/09/25 14:31 Home Medications Medication Instructions Recorded Confirmed Type insulin degludec 100 unit/mL (3 0 unit subcut UD 07/06/20 07/14/25 History mL) subcutaneous pen (Tresiba FlexTouch U-100 insulin) cholecalciferol (vitamin D3) 25 25 mcg PO QAM 07/25/22 07/14/25 History mcg (1,000 unit) capsule (Vitamin D3) aspirin 81 mg tablet,delayed 81 mg PO QAM 07/14/25 07/14/25 History release (Ecotrin Low Strength) Patient History Medical History H/O: CVA (cerebrovascular accident) Vascular dementia Stroke TIA (transient ischemic attack) Acute confusion Surgical History No pertinent past surgical history Family History Father , He in his 70s of an [place] Primary Parkinson's disease Myocardial infarction Mother , age 101 No problems noted. Social History Smoking Status: Unknown if ever smoked Tobacco Type: Cigarettes Cigarettes Per Day: Pt unable to answer; Second Hand Exposure: No; Do You Dip or Chew Tobacco: No; Tobacco Cessation Education Requested by Patient: No Hx Alcohol Use: No Hx Substance Use: No Preferred Language: Maltese Communication Ability: Effective Ux Developer Required: No Beliefs That Will Affect Care: None Current Living Situation: Spouse Other Information That Helps Us Care for You: No Feels Safe at Home: Yes Safety Concerns: Feels Safe At This Time Assistive Devices: Walker Review of Systems Unable to obtain due to patient condition Physical Exam limited due to patient condition. He is unable to hear me and there was no one in the room to assess with tele video. He is lying in bed, appears to be alert, extraocular movements intact and spontaneous, face appears symmetric, no spontaneous arm or leg movements were observed. Results & Data Vital Signs (Past 12 Hours) Vital Signs Temp Pulse Pulse Resp BP Pulse Ox O2 Del Method 07/15/25 07:57 36.7 C 16 145/97 H 94 Room Air 07/15/25 07:09 85 07/15/25 02:48 36.7 C 83 18 160/92 H 93 Room Air Laboratory Results 07/14/25 19:16 Urine Culture - Pending Urine,Clean Catch 07/15/25 07/15/25 07/14/25 08:31 06:25 22:42 WBC 9.23 RBC 5.14 Hgb 15.9 POC Hgb Hct 45.1 POC Hct MCV 87.7 MCH 30.9 MCHC 35.3 RDW Std Deviation 42.2 RDW Coeff of Nikita 13.1 Plt Count 231 MPV 9.1 L Immature Gran % (Auto) 0.3 Neut % (Auto) 57.6 Lymph % (Auto) 31.1 [place] % (Auto) 9.1 Eos % (Auto) 1.4 Baso % (Auto) 0.5 Neut # (Auto) 5.31 Lymph # (Auto) 2.87 [place] # (Auto) 0.84 H Eos # (Auto) 0.13 Baso # (Auto) 0.05 Immature Gran # (Auto) 0.03 PT INR APTT PTT Ratio POC Sodium Sodium 136 POC Potassium Potassium 4.0 POC Chloride Chloride 102 Carbon Dioxide 25 POC Total CO2 Anion Gap 9 POC Anion Gap POC BUN BUN 16 Creatinine 0.76 POC Creatinine Est Cr Clr Drug Dosing 80.7 eGFR 92.57 BUN/Creatinine Ratio 21.1 H Glucose 130 H POC Glucose 138 H 97 POC Glucose (other) Estimat Average Glucose 154 Hemoglobin A1c 7.0 H Calcium 9.4 POC Ioniz Calcium Dedrick Magnesium Total Bilirubin AST ALT Alkaline Phosphatase Troponin I High Sens Total Protein Albumin Globulin Albumin/Globulin Ratio Triglycerides 115 Cholesterol 291 H LDL Cholesterol, Calc 215 VLDL Cholesterol, Calc 23 HDL Cholesterol 53 Cholesterol/HDL Ratio 5.5 H Urine Color Urine Appearance Urine pH Ur Specific [place] Urine Protein Urine Glucose (UA) Urine Ketones Urine Blood Urine Nitrite Urine Bilirubin Urine Urobilinogen Ur Leukocyte Esterase Urine WBC (Auto) Urine RBC (Auto) U Hyaline Cast (Auto) U Epithel Cells (Auto) Urine Bacteria (Auto) Urine Comment 07/14/25 07/14/25 07/14/25 19:16 16:46 16:42 WBC RBC Hgb POC Hgb 15.3 Hct POC Hct 45 MCV MCH MCHC RDW Std Deviation RDW Coeff of Nikita Plt Count MPV Immature Gran % (Auto) Neut % (Auto) Lymph % (Auto) [place] % (Auto) Eos % (Auto) Baso % (Auto) Neut # (Auto) Lymph # (Auto) [place] # (Auto) Eos # (Auto) Baso # (Auto) Immature Gran # (Auto) PT 10.4 INR 1.0 APTT 27 PTT Ratio 1.0 POC Sodium 137 Sodium 138 POC Potassium 4.2 Potassium 4.2 POC Chloride 102 Chloride 102 Carbon Dioxide 30 POC Total CO2 26 Anion Gap 6 POC Anion Gap 14.0 L POC BUN 21 H BUN 20 Creatinine 0.81 POC Creatinine 1.1 Est Cr Clr Drug Dosing Not Reportable eGFR 90.81 BUN/Creatinine Ratio 24.7 H Glucose 107 H POC Glucose POC Glucose (other) 108 H Estimat Average Glucose Hemoglobin A1c Calcium 9.4 POC Ioniz Calcium Dedrick 1.12 Magnesium 2.1 Total Bilirubin 0.5 AST 16 ALT 16 Alkaline Phosphatase 45 Troponin I High Sens 9.6 Total Protein 7.0 Albumin 4.2 Globulin 2.8 Albumin/Globulin Ratio 1.5 Triglycerides Cholesterol LDL Cholesterol, Calc VLDL Cholesterol, Calc HDL Cholesterol Cholesterol/HDL Ratio Urine Color Yellow Urine Appearance Turbid A Urine pH 7.0 Ur Specific [place] > 1.045 H Urine Protein Negative Urine Glucose (UA) Negative Urine Ketones Negative Urine Blood 1+ H Urine Nitrite Negative Urine Bilirubin Negative Urine Urobilinogen Negative Ur Leukocyte Esterase 3+ H Urine WBC (Auto) >50 H Urine RBC (Auto) 0-2 U Hyaline Cast (Auto) 0-2 U Epithel Cells (Auto) 0-2 Urine Bacteria (Auto) 4+ H Urine Comment 07/14/25 14:40 WBC 7.58 RBC 5.01 Hgb 15.5 POC Hgb Hct 44.6 POC Hct MCV 89.0 MCH 30.9 MCHC 34.8 RDW Std Deviation 43.4 RDW Coeff of Nikita 13.2 Plt Count 250 MPV 9.8 Immature Gran % (Auto) 0.3 Neut % (Auto) 62.6 Lymph % (Auto) 29.0 [place] % (Auto) 6.9 Eos % (Auto) 0.7 Baso % (Auto) 0.5 Neut # (Auto) 4.75 Lymph # (Auto) 2.20 [place] # (Auto) 0.52 Eos # (Auto) 0.05 Baso # (Auto) 0.04 Immature Gran # (Auto) 0.02 PT Cancelled INR Cancelled APTT Cancelled PTT Ratio Cancelled POC Sodium Sodium POC Potassium Potassium POC Chloride Chloride Carbon Dioxide POC Total CO2 Anion Gap POC Anion Gap POC BUN BUN Creatinine POC Creatinine Est Cr Clr Drug Dosing eGFR BUN/Creatinine Ratio Glucose POC Glucose POC Glucose (other) Estimat Average Glucose Hemoglobin A1c Calcium POC Ioniz Calcium Dedrick Magnesium Total Bilirubin AST ALT Alkaline Phosphatase Troponin I High Sens Total Protein Albumin Globulin Albumin/Globulin Ratio Triglycerides Cholesterol LDL Cholesterol, Calc VLDL Cholesterol, Calc HDL Cholesterol Cholesterol/HDL Ratio Urine Color Urine Appearance Urine pH Ur Specific [place] Urine Protein Urine Glucose (UA) Urine Ketones Urine Blood Urine Nitrite Urine Bilirubin Urine Urobilinogen Ur Leukocyte Esterase Urine WBC (Auto) Urine RBC (Auto) U Hyaline Cast (Auto) U Epithel Cells (Auto) Urine Bacteria (Auto) Urine Comment Diagnostic Findings Head CT 07/14/25 14:50 Impression: 1. Cerebral atrophy, old infarcts, and chronic small vessel ischemic disease. 2. Otherwise unremarkable noncontrast CT of the brain. Electronically signed by Wojciech Connor 07-14-2025 6:14 PM Head CTA 07/14/25 14:50 Impression: 1. Severe stenoses of the SENIOR [employer]IT[employer] bilaterally 2. Severe stenoses of the basilar artery 3. Stenosis of the right PCOM Electronically signed by Wojciech Connor 07-14-2025 6:19 PM Neck CTA 07/14/25 14:50 Impression: 1. 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 Moderate severity stenosis of the origin of the right vertebral artery 3. Moderate severity stenosis of the proximal left subclavian artery 4. Bilateral carotid atherosclerosis, without significant stenosis Electronically signed by Wojciech Connor 07-14-2025 6:23 PM Brain MRI 07/14/25 18:49 Exam(s): MRI HEAD Without Contrast EXAM: MR Head Without Intravenous Contrast CLINICAL HISTORY: Reason for exam: stroke protocol. TECHNIQUE: IMPRESSION: No evidence of acute intracranial pathology. Electronically signed by: Delisa Kovacs MD 07/15/25 00:30 AM Medications Administered Home Medications Medication Instructions Recorded Confirmed Last Taken insulin degludec 100 unit/mL (3 0 unit subcut UD 07/06/20 07/14/25 3 Days Ago mL) subcutaneous pen (Tresiba ~01/06/25 FlexTouch U-100 insulin) cholecalciferol (vitamin D3) 25 25 mcg PO QAM 07/25/22 07/14/25 3 Days Ago mcg (1,000 unit) capsule (Vitamin ~01/06/25 D3) aspirin 81 mg tablet,delayed 81 mg PO QAM 07/14/25 07/14/25 07/14/25 release (Ecotrin Low Strength) Active Medications Generic Name Dose Route Start Last Admin Trade Name Freq PRN Reason Stop Dose Admin Enoxaparin Sodium 40 mg 07/15/25 09:00 07/15/25 09:55 Enoxaparin Inj 40 Mg/0.4 Ml Syr SQ 08/14/25 08:59 40 mg QAM PAO Administration Sodium Chloride 1,000 mls @ 50 mls/hr 07/14/25 19:59 07/14/25 22:37 Nss IV 07/15/25 15:58 50 mls/hr .Q20H ONE Administration Aztreonam 2,000 mg/ Dextrose 100 mls @ 100 mls/hr 07/14/25 23:00 07/15/25 09:55 IV 07/24/25 22:59 Infused Q8H PAO Infusion Insulin Aspart 0 units 07/14/25 22:12 07/15/25 08:40 Insulin Aspart Per Unit Charge SC 08/13/25 22:11 Not Given Q6 [facility] Insulin Glargine 5 units 07/15/25 09:00 07/15/25 09:54 Lantus Per Unit Charge SQ 08/14/25 08:59 5 units DAILY [facility] Administration
[2025-07-15] MEDS: CLOPIDOGREL BISULFATE 75 MG TAB PO SCH (12:30)
[2025-07-15] MEDS ORDERED: Nursing to Pharmacy Communication SCH (12:30)
[2025-07-15] MEDS: ASPIRIN 81 MG ECTAB PO SCH (12:30)
[2025-07-15] MEDS: INSULIN ASPART PER UNIT CHARGE SC SCH (12:55)
--- NOTE | 2025-07-15 13:10 | Pharmacy Report ---
- Date of Service July 15, 2025 - Pharmacy CVA/TIA Medication Review Medications to Prevent Stroke handout has been added to the patients discharge packet. Antiplatelet(s) * aspirin 81 mg PO daily + clopidogrel 75 mg PO daily Cholesterol * High intensity statin: atorvastatin 80 mg daily DVT Prophylaxis * Enoxaparin SQ Therapeutic Anticoagulation * No history of Afib/Aflutter noted Type 2 Diabetes * Patient has T2DM, but per [place], a diabetes medication with proven CVD benefit will be deferred to their outpatient provider due to familiarity with risks/benefits of such therapies. "Medications to prevent stroke" handout has already been added to the patient's discharge packet, which instructs the patient to follow up with their outpatient provider to evaluate which diabetes medication with proven CVD benefit is best for them
[2025-07-15] MEDS: ATORVASTATIN 40 MG TAB PO SCH (14:07)
[2025-07-15] MEDS: cefTRIAXone SODIUM 2,000 MG/50 ML BAG IV SCH (16:49)
[2025-07-16 07:05] LABS: Hematocrit (blood only) 40.4 % (42.0-52.0); Hemoglobin 14.1 g/dl (14.0-18.0); Immature Granulocytes # (auto) 0.01 K/uL (0.01-0.20); Immature Granulocytes % (auto) 0.2 %; Mean Corpuscular Hemoglobin 31.0 pg (25.0-34.0); Mean Corpuscular Volume 88.8 fL (80.0-100.0); Platelet Count 211 K/uL (130-400); RDW Standard Deviation 43.4 fL (36.4-46.3); Red Blood Count 4.55 M/uL (4.70-6.10); White Blood Count 6.35 K/ul (4.8-10.8)
[2025-07-16 07:36] LABS: Anion Gap 6.0 (3-11); Blood Urea Nitrogen 22.0 mg/dl (6-23); Calcium 9.0 mg/dl (8.6-10.3); Carbon Dioxide 25.0 mmol/L (21-32); Chloride 105.0 mmol/L (98-107); Creatinine Clr Calc Pharmacy 85.7 ml/min; Glucose 106.0 mg/dl (70-99(Fasting)); Magnesium 2.0 mg/dl (1.7-2.4); Potassium 4.1 mmol/L (3.5-5.1); Sodium 136.0 mmol/L (136-145)
--- NOTE | 2025-07-16 14:10 | Hospitalist Progress Note ---
Date of Service July 16, 2025 Assessment & Plan (1) Acute encephalopathy: Plan: Per admitting provider w/ addendum: Encephalopathy Delirium on dementia Possibly from complicated UTI, no sepsis Rule out recurrent stroke hx left MCA ischemic stroke status post left ICA stent Urine CS, Azactam -> switched to ceftriaxone, Urine culture - posit. for Klebsiella variicola Neurochecks Permissive hypertension until new stroke ruled out Continue aspirin and statin Rx for secondary stroke prevention Neurology consult RE encephalopathy, history of CVA (ED provider already in touch with Dr. Harvey of [facility] who recommends MRI of the brain.) Admitting provider communicated w/ neurology - Dr. Harvey of Neurology given update regarding patient in AM. Clarified with specialist that patient currently on aspirin monotherapy. Dr. Harvey recommends DAPT (addition of Plavix to aspirin) for life given PVD extent on review of CTAs. MR brain - FINDINGS: Brain: Remote ischemic injuries of the cerebellum. Remote ischemic injury of the right capsule. Remote ischemic injury of the left frontal and parietal lobes with encephalomalacia and gliosis. Advanced nonspecific white matter changes. No mass. No hemorrhage. No acute infarct. The flow voids at the base the brain are intact. Ventricles: Unremarkable. No ventriculomegaly. Bones/joints: Unremarkable. No acute fracture. Sinuses: Chronic right sphenoid sinusitis. No acute sinusitis. Mastoid air cells: Unremarkable as visualized. No mastoid effusion. Orbits: Unremarkable as visualized. IMPRESSION: No evidence of acute intracranial pathology. Neurology consult - (1) Acute encephalopathy: etiology secondary to acute urinary tract infection. UA with greater than 50 WBC, 4+ bacteria, and 3+ leukocyte esterase. -treatment of UTI per primary team (2) H/O: CVA (cerebrovascular accident): The patient has a history of multiple chronic stroke, right periventricular, right thalamic, right occipital (01/11/2025), left occipital, left frontal, left MCA, and right frontal ( 07/2022). 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 Patient was only taking aspirin prior to arrival. -recommend aspirin 81 mg daily - recommend clopidogrel 75 mg daily - recommend atorvastatin 80 mg daily - recommend Holter monitor to rule out atrial fibrillation - if no atrial fibrillation is found on Holter monitor, patient will need a loop recorder placement - recommend outpatient Neurology evaluation for vascular dementia. At present, I suspect the patient's encephalopathy is due to acute urinary tract infection on top of but diminished baseline Hypertension, elevated secondary to illness mild hyperlipidemia on statin Rx hx carotid artery disease DM2 insulin requiring, reasonable control as of recent hemoglobin A1c of 7.27 January 2025 , Basal bolus insulin ISS BG goal 110-140, carb count coverage past tobacco abuse DVT prophylaxis. Lovenox subcu DNR Patient's - Ms. Ana Maria Oconnor, contact number [phone]. Admission and Anticipated Discharge Date Admission Date: July 14, 2025 Subjective Pt seen in follow up of encephalopathy, stroke -like symptoms, diagnosed w/ UTI on admission Currently lying in bed in NAD He denies any fever, chills, chest pain, shortness of breath, denies any abd. pain His response is clear but slow, he has good eye contact. Follows command, moves all the extremities when asked. Neurology consulted - no new cva, encephalopathy likely secondary to UTI Review of Systems Review of Systems: All systems reviewed & are unremarkable except as noted in Subjective Physical Exam Physical Exam: GENERAL: WD/WN M in NAD SKIN: Normal color, warm HEENT: Ramirez-Perez palpebral conjunctivae, no ptosis, dry buccal mucosa NECK : Supple, no tenderness CHEST : CTA, no tenderness HEART : RRR, systolic murmur ABDOMEN: Soft, nontender EXTREMITIES : No LE swelling/tenderness, no other conspicuous deformities noted NEUROLOGIC : awake, answers some questions appropriately, answers are slow and short, no facial asymmetry, follows simple commands, moves all 4 extremities when asked Results & Data Results & Data Vital Signs (Past 12 Hours) Vital Signs Temp Pulse Pulse Resp BP Pulse Ox O2 Del Method 07/16/25 11:38 36.3 C L 57 L 16 132/73 98 Room Air 07/16/25 08:01 36.4 C L 61 16 123/79 92 Room Air 07/16/25 07:20 65 07/16/25 03:29 35.9 C L 67 12 152/81 H 90 Room Air Laboratory Results 07/16/25 07/16/25 07/16/25 Range/Units 12:04 08:13 06:31 WBC 6.35 (4.8-10.8) K/ul RBC 4.55 L (4.70-6.10) M/uL Hgb 14.1 (14.0-18.0) g/dl Hct 40.4 L (42.0-52.0) % MCV 88.8 (80.0-100.0) fL MCH 31.0 (25.0-34.0) pg MCHC 34.9 (32.0-36.0) g/dL RDW Std Deviation 43.4 (36.4-46.3) fL RDW Coeff of Nikita 13.2 (11.5-14.5) % Plt Count 211 (130-400) K/uL MPV 9.4 (9.4-12.4) fL Immature Gran % (Auto) 0.2 % Neut % (Auto) 52.4 % Lymph % (Auto) 34.5 % [place] % (Auto) 10.4 % Eos % (Auto) 1.7 % Baso % (Auto) 0.8 % Neut # (Auto) 3.33 (1.40-6.50) K/uL Lymph # (Auto) 2.19 (1.20-3.40) K/uL [place] # (Auto) 0.66 H (0.11-0.59) K/uL Eos # (Auto) 0.11 (0.00-0.50) K/uL Baso # (Auto) 0.05 (0.00-0.20) K/uL Immature Gran # (Auto) 0.01 (0.01-0.20) K/uL Sodium 136 (136-145) mmol/L Potassium 4.1 (3.5-5.1) mmol/L Chloride 105 (98-107) mmol/L Carbon Dioxide 25 (21-32) mmol/L Anion Gap 6 (3-11) BUN 22 (6-23) mg/dl Creatinine 0.73 (0.6-1.4) mg/dl Est Cr Clr Drug Dosing 85.7 ml/min eGFR 93.71 BUN/Creatinine Ratio 30.1 H (10-20) Glucose 106 H (70-99(Fasting)) mg/dl POC Glucose 122 H 109 H (70-99) mg/dl Calcium 9.0 (8.6-10.3) mg/dl Phosphorus 3.9 (2.5-4.9) mg/dl Magnesium 2.0 (1.7-2.4) mg/dl 07/15/25 07/15/25 Range/Units 20:02 18:23 WBC (4.8-10.8) K/ul RBC (4.70-6.10) M/uL Hgb (14.0-18.0) g/dl Hct (42.0-52.0) % MCV (80.0-100.0) fL MCH (25.0-34.0) pg MCHC (32.0-36.0) g/dL RDW Std Deviation (36.4-46.3) fL RDW Coeff of Nikita (11.5-14.5) % Plt Count (130-400) K/uL MPV (9.4-12.4) fL Immature Gran % (Auto) % Neut % (Auto) % Lymph % (Auto) % [place] % (Auto) % Eos % (Auto) % Baso % (Auto) % Neut # (Auto) (1.40-6.50) K/uL Lymph # (Auto) (1.20-3.40) K/uL [place] # (Auto) (0.11-0.59) K/uL Eos # (Auto) (0.00-0.50) K/uL Baso # (Auto) (0.00-0.20) K/uL Immature Gran # (Auto) (0.01-0.20) K/uL Sodium (136-145) mmol/L Potassium (3.5-5.1) mmol/L Chloride (98-107) mmol/L Carbon Dioxide (21-32) mmol/L Anion Gap (3-11) BUN (6-23) mg/dl Creatinine (0.6-1.4) mg/dl Est Cr Clr Drug Dosing ml/min eGFR BUN/Creatinine Ratio (10-20) Glucose (70-99(Fasting)) mg/dl POC Glucose 136 H 160 H (70-99) mg/dl Calcium (8.6-10.3) mg/dl Phosphorus (2.5-4.9) mg/dl Magnesium (1.7-2.4) mg/dl Medications Administered Current Inpatient Medications Acetaminophen (Acetaminophen 325 Mg Tab) 650 mg PO QID PRN PRN Reason: pain/fever Stop: 08/13/25 21:37 Aspirin (Aspirin 81 Mg Ectab) 81 mg PO QAM PAO Stop: 08/14/25 08:59 Last Admin: 07/16/25 09:19 Dose: 81 mg Atorvastatin Calcium ([facility]vastatin 40 Mg Tab) [facility]: 08/14/25 12:44 Last Admin: 07/16/25 09:19 Dose: 80 mg Clopidogrel Bisulfate (Clopidogrel Bisulfate 75 Mg Tab) 75 mg PO QAM [facility] Stop: 08/14/25 06:29 Last Admin: 07/16/25 09:19 Dose: 75 mg Dextrose (Dextrose 50% 50 Ml Syringe) 25 - 50 ml IV UD PRN; Protocol PRN Reason: Hypoglycemia Protocol Stop: 08/13/25 22:11 Enoxaparin Sodium (Enoxaparin Inj 40 Mg/0.4 Ml Syr) [address] [facility] Stop: 08/14/25 08:59 Last Admin: 07/16/25 09:19 Dose: 40 mg Glucagon (Glucagon For Inj 1 Mg Vial) 1 mg SQ UD PRN; Protocol PRN Reason: Hypoglycemia Protocol Stop: 08/13/25 22:11 Glucose (Glucose 40% Gel 15 Gm Tube) 15 - 30 gm PO UD PRN; Protocol PRN Reason: Hypoglycemia Protocol Stop: 08/13/25 22:11 Glucose (Glucose 10 Tab/Tube) 4 - 8 tab PO UD PRN; Protocol PRN Reason: Hypoglycemia Protocol Stop: 08/13/25 22:11 Promethazine HCl (Phenergan) 6.25 mg in 50.25 mls @ 201 mls/hr IV Q6H PRN PRN Reason: Nausea And Vomiting Stop: 08/13/25 21:37 Ceftriaxone Sodium (Rocephin) 2,000 mg in 50 mls @ 100 mls/hr IV DAILY@1600 [facility] Stop: 07/25/25 16:29 Last Infusion: 07/15/25 17:30 Dose: Infused Insulin Aspart (Insulin Aspart Per Unit Charge) 0 units SC [facility] Stop: 08/13/25 22:11 Last Admin: 07/16/25 13:41 Dose: 2 units Insulin Glargine (Lantus Per Unit Charge) 5 units SQ DAILY [facility] Stop: 08/14/25 08:59 Last Admin: 07/16/25 09:26 Dose: 5 units Miscellaneous (Carbohydrates For Hypoglycemia ) 15 - 30 gm PO UD PRN PRN Reason: Hypoglycemia Protocol Stop: 08/13/25 22:11 Miscellaneous Information (Pharmacist Discharge Med Rec Consult) 1 each N/A UD PRN PRN Reason: Consult Stop: 08/13/25 21:05
[2025-07-16] MEDS: MAGNESIUM HYDROXIDE SUSP 30 ML UDC PO ONE (15:55)
[2025-07-17 07:39] LABS: Hematocrit (blood only) 42.2 % (42.0-52.0); Hemoglobin 14.0 g/dl (14.0-18.0); Immature Granulocytes # (auto) 0.02 K/uL (0.01-0.20); Immature Granulocytes % (auto) 0.3 %; Mean Corpuscular Hemoglobin 29.8 pg (25.0-34.0); Mean Corpuscular Volume 89.8 fL (80.0-100.0); Platelet Count 199 K/uL (130-400); RDW Standard Deviation 43.8 fL (36.4-46.3); Red Blood Count 4.70 M/uL (4.70-6.10); White Blood Count 7.34 K/ul (4.8-10.8)
[2025-07-17 08:01] LABS: Anion Gap 5.0 (3-11); Blood Urea Nitrogen 22.0 mg/dl (6-23); Calcium 9.3 mg/dl (8.6-10.3); Carbon Dioxide 28.0 mmol/L (21-32); Chloride 104.0 mmol/L (98-107); Creatinine Clr Calc Pharmacy 73.4 ml/min; Glucose 115.0 mg/dl (70-99(Fasting)); Magnesium 2.1 mg/dl (1.7-2.4); Potassium 4.7 mmol/L (3.5-5.1); Sodium 137.0 mmol/L (136-145)
--- NOTE | 2025-07-17 10:33 | Discharge Summary ---
Date of Service July 17, 2025 Admission HPI Per Admitting Provider History obtained from patient, family, and records. Limited history from patient secondary to dementia. Medical history significant for mild , hypertension, hyperlipidemia, left MCA ischemic stroke status post left ICA stent, carotid artery disease, vascular dementia, DM 2 insulin requiring, anxiety/mood disorder, past tobacco abuse. Last confinement January 2025 for aspiration pneumonia and altered mental status. Patient discharged to [facility] prior to returning home last March 2025. Patient has not been right in the last couple of nights. Patient staring into space and not as responsive. Slow to answer and to move around as per . No witnessed seizures. Patient without other complaints. Compliant with home medications. Usual left-sided weakness as per from old stroke. EMS called to patient's home. Medical History as above Surgical History : Vascular procedures Family History : Heart disease Personal/Social history : Past tobacco abuse, daily alcohol intake denies abuse as per , retired [employer] employee Admission Exam Per Admitting Provider GENERAL: Demented, flat affect, no respiratory distress SKIN: Normal color, warm HEENT: [place] palpebral conjunctivae, no ptosis, dry buccal mucosa NECK : Supple, no tenderness CHEST : CTA, no tenderness HEART : RRR, systolic murmur ABDOMEN: Some distention, nontender EXTREMITIES : No LE swelling/tenderness, no other conspicuous deformities noted NEUROLOGIC : Demented, no facial asymmetry, gait and stance not assessed Principal Diagnosis Encephalopathy secondary to UTI Discharge Exam GENERAL: WD/WN M in NAD SKIN: Normal color, warm HEENT: [place] palpebral conjunctivae, no ptosis, dry buccal mucosa NECK : Supple, no tenderness CHEST : CTA, no tenderness HEART : RRR, systolic murmur ABDOMEN: Soft, nontender EXTREMITIES : No LE swelling, moves extremities NEUROLOGIC : awake, answers some questions appropriately, answers are slow and short, no facial asymmetry, follows simple commands, moves all 4 extremities Discharge Data Allergies Allergy/AdvReac Type Severity Reaction Status Date / Time No Known Allergies Allergy Verified 01/09/25 14:31 Consultations 07/14/25 19:07 ED Decision to Admit Stat 07/14/25 21:07 Consult Neurology Routine Ordered Studies 07/14/25 14:50 CT angio head w con Stat Findings: There is calcified plaque within the cavernous and supraclinoid segments of the internal carotid arteries bilaterally, without significant stenosis There is mild plaque within the M1 and M2 segment of the middle cerebral arteries bilaterally, without significant stenosis. The A1 segment of the right anterior cerebral artery is diminutive, likely on a congenital basis. There are severe stenoses of the P1 and P2 segments of the right posterior cerebral artery.. There is a focal severe stenosis of the P2 segment of the left posterior cerebral artery. Posterior communicating arteries are present bilaterally. There is a moderate severity stenosis of the right posterior communicating artery There are severe stenoses of the proximal and distal aspects of the basilar artery Impression: 1. Severe stenoses of the HAIR BALER bilaterally 2. Severe stenoses of the basilar artery 3. Stenosis of the right PCOM CT angio neck with con Stat Impression: 1. 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 Moderate severity stenosis of the origin of the right vertebral artery 3. Moderate severity stenosis of the proximal left subclavian artery 4. Bilateral carotid atherosclerosis, without significant stenosis CT head/brain wo con Stat Findings: There is unchanged cerebral atrophy, within expected limits for the patient's age. Areas of decreased attenuation are seen within the periventricular white matter, likely representing chronic small vessel ischemic disease. There is an old infarct of the right caudate nucleus. There are suspected small old infarcts of the left frontal and left parietal lobes. There is an old infarct of the anterior right thalamus There is no definite sign of acute infarction. No intracranial hemorrhage is evident. No definite mass lesion is seen on this noncontrast examination. There is no midline shift or other form of herniation. No hydrocephalus is seen. No fracture is identified. The orbits and the visualized paranasal sinuses appear unremarkable. The mastoid air cells appear clear. Impression: 1. Cerebral atrophy, old infarcts, and chronic small vessel ischemic disease 2. Otherwise unremarkable noncontrast CT of the brain 07/14/25 18:49 MR brain wo con Stat FINDINGS: Brain: Remote ischemic injuries of the cerebellum. Remote ischemic injury of the right capsule. Remote ischemic injury of the left frontal and parietal lobes with encephalomalacia and gliosis. Advanced nonspecific white matter changes. No mass. No hemorrhage. No acute infarct. The flow voids at the base the brain are intact. Ventricles: Unremarkable. No ventriculomegaly. Bones/joints: Unremarkable. No acute fracture. Sinuses: Chronic right sphenoid sinusitis. No acute sinusitis. Mastoid air cells: Unremarkable as visualized. No mastoid effusion. Orbits: Unremarkable as visualized. IMPRESSION: No evidence of acute intracranial pathology. Hospital Course (1) Acute encephalopathy: Encephalopathy Delirium on dementia Likely from complicated UTI, no sepsis Ruled out recurrent stroke hx left MCA ischemic stroke status post left ICA stent Urine CS, Azactam on admission -> switched to ceftriaxone, Urine culture - posit. for Klebsiella variicola -> will DC on PO cefuroxime Neurochecks Permissive hypertension until new stroke ruled out Continue aspirin and statin Rx for secondary stroke prevention Neurology consult RE encephalopathy, history of CVA (ED provider already in touch with Dr. Harvey of [facility] who recommends MRI of the brain.) Admitting provider communicated w/ neurology - Dr. Harvey of Neurology given update regarding patient in AM. Clarified with specialist that patient currently on aspirin monotherapy. Dr. Harvey recommends DAPT (addition of Plavix to aspirin) for life given PVD extent on review of CTAs. MR brain - FINDINGS: Brain: Remote ischemic injuries of the cerebellum. Remote ischemic injury of the right capsule. Remote ischemic injury of the left frontal and parietal lobes with encephalomalacia and gliosis. Advanced nonspecific white matter changes. No mass. No hemorrhage. No acute infarct. The flow voids at the base the brain are intact. Ventricles: Unremarkable. No ventriculomegaly. Bones/joints: Unremarkable. No acute fracture. Sinuses: Chronic right sphenoid sinusitis. No acute sinusitis. Mastoid air cells: Unremarkable as visualized. No mastoid effusion. Orbits: Unremarkable as visualized. IMPRESSION: No evidence of acute intracranial pathology. Neurology consult - (1) Acute encephalopathy: etiology secondary to acute urinary tract infection. UA with greater than 50 WBC, 4+ bacteria, and 3+ leukocyte esterase. -treatment of UTI per primary team (2) H/O: CVA (cerebrovascular accident): The patient has a history of multiple chronic stroke, right periventricular, right thalamic, right occipital (01/11/2025), left occipital, left frontal, left MCA, and right frontal ( 07/2022). 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 Patient was only taking aspirin prior to arrival. -recommend aspirin 81 mg daily - recommend clopidogrel 75 mg daily - recommend atorvastatin 80 mg daily - recommend Holter monitor to rule out atrial fibrillation - if no atrial fibrillation is found on Holter monitor, patient will need a loop recorder placement - recommend outpatient Neurology evaluation for vascular dementia. At present, I suspect the patient's encephalopathy is due to acute urinary tract infection on top of but diminished baseline Hypertension, elevated secondary to illness mild hyperlipidemia on statin Rx hx carotid artery disease DM2 insulin requiring, reasonable control as of recent hemoglobin A1c of 7.27 January 2025 , Basal bolus insulin ISS BG goal 110-140, carb count coverage past tobacco abuse Total Time Total Time Spent Total Time Spent (In Minutes): 40 Discharge Plan Discharge Items Patient Disposition: Home - Self-Care Reason For Visit: APHASIA Discharge Diagnosis: Encephalopathy secondary to UTI Condition on Discharge: Fair Activity: Per Instructions section Non-emergency contact: Primary Care Provider Call non-emergency contact if: you have any medication questions and your symptoms worsen Follow-up/Referrals: Gera Hanley DO [Primary Care Provider] - (Date & Time 07/22/2025 9:00 AM Provider: Gera Hanley DO [facility] ) Diet: Carb Consistent or DM2 Addtl Attending Provider Instructions: Follow up with your primary care physician within 1 week, also recommend follow up with neurology. The appointment with your primary care provider was scheduled for you for 07/22/2025. Finish the antibiotic course as prescribed. Continue taking aspirin 81 mg daily. In addition, given your history of strokes, it was recommended by neurologist that you also take plavix 75 mg daily and atorvastatin 80 mg daily. 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 Pending Studies at Discharge: No Stand-Alone Forms: [facility], Smoking Cessation, Medications to Prevent Stroke Medications and DC Order Prescriptions: New clopidogrel 75 mg Tablet 75 mg PO QAM Qty: 30 0RF cefuroxime axetil 250 mg tablet 250 mg PO Q12H 7 Days Qty: 14 0RF atorvastatin 80 mg tablet 80 mg PO HS Qty: 30 0RF Continued insulin degludec [Tresiba FlexTouch U-100] 100 unit/mL (3 mL) Insulin Pen 0 unit SUBCUT UD cholecalciferol (vitamin D3) [Vitamin D3] 25 mcg (1,000 unit) Capsule 25 mcg PO QAM aspirin [Ecotrin Low Strength] 81 mg tablet,delayed release (DR/EC) 81 mg PO QAM Discharge Orders: Discharge Order (Routine); Ordered 07/17/25 Ordered By: Chuck Rivero/Other Patient Handouts: Managing Type 2 Diabetes Admission Data Admit Date/Time: 07/14/25 19:57 Attending Provider: Chuck Huynh Admit Provider: Roderick Solares Primary Care Provider: Gera Hanley Other Providers: Roderick Solares; Amparo Harvey
[2025-07-17] MEDS: STROKE PATIENT DISCHARGE STA (10:53)
[2025-07-17 11:15] VITALS: RESP 18
[2025-07-17 15:23] VITALS: BP 131/83; PULSE 61; TEMP 97.9; O2SAT 96
--- NOTE | 2025-07-19 18:23 | Coding Query ---
CODING QUERY To promote full compliance with coding requirements relating to patient care, provider participation is requested in all cases of farmworker uncertainty. Please assist us with the question(s) below: Coding Question(s): Pt admitted with Encephalopathy due to UTI. Please document, if known or suspected the Specific type of Encephalopathy ie: toxic, hepatic, etc. Thanks for your help! Gorge Xie [employer] [facility] Physician's Response(s): secondary to UTI Principal Diagnosis: "that condition established after study, to be chiefly responsible for occasioning the admission of the patient to the hospital for care." Co-Existing Principal Diagnosis: "when two or more diagnoses equally meet the criteria for principal diagnosis as determined by the circumstances of admission, diagnostic work up, and/or therapy provided, and the Alphabetic Index, Tabular List, or another coding guideline does not provide sequencing direction, any one of the diagnoses may be sequenced first." "When the physician has documented what appears to be a current diagnosis in the body of the record, but has not included the diagnosis in the final diagnostic statement, the physician should be asked whether the diagnosis should be added." (Source Coding [facility] 2 QTR90. p3-4) BREA
== END 2025-07-17 16:24 | disposition home or self-care (01) | DRG 690 ==
LOC: ED 14:21 → 2W 19:57

== ENCOUNTER 2025-07-23 16:14 | Inpatient (IN) ==
[2025-07-23] MEDS: SODIUM CHLORIDE 0.9% 1,000 ML IV SCH (16:51)
--- NOTE | 2025-07-23 16:53 | Emergency Department Note ---
Impression & Plan LGI bleed, C. difficile colitis, Diarrhea ED Provider Note NAME: JC NEGRETE AGE: 79 SEX: M : 1945 ARRIVES VIA: Walk-In INFORMANT: Patient, ED PROVIDER(S): Clayton Rios DO CHIEF COMPLAINT: GIB, diarrheal illness HPI: This is a 79-year-old male with the PMHx of [place] stroke in December with extensive rehabilitation stay, HTN, DM2 and vascular dementia presenting to [facility] for further evaluation of Diarrheal illness now with lower GI bleeding. Patient is accompanied by his who provide additional history. Patient's states this has been an ongoing issue. He was in the hospital recently for acute encephalopathy secondary to complicated UTI. Patient has been on multiple courses of antibiotics. She states he was originally on 1 antibiotic and transition to another. She is unsure of the names. She states that diarrhea has worsened since over the weekend. They were at [facility] on Sunday. She states that they did not give adequate care and he was ultimately discharged home. She had wanted the patient transferred to [facility] for admission. They have been following up with her PCP as an outpatient. PCP recommended admission to the hospital given ongoing diarrheal illness and evidence of a lower GI bleed. reports that she has had to change the patient approximately 6-8 times today secondary to profuse diarrhea. She reports bright red blood and some clots mixed in with the diarrhea. He is on dual antiplatelet. They deny fever or chills. No cough or congestion. Denies chest pain or palpitations. No shortness of breath. They deny abdominal pain, nausea and vomiting. No urinary complaints. No recent changes in bowel movements. Patient denies recent changes in medications or OTC supplements. Patient offers no other complaints, today. ADDITIONAL HISTORY OBTAINED: Per HPI Chronic Medical/Social Conditions Affecting Care: Per HPI PAST MEDICAL HISTORY: See Below PAST SURGICAL HISTORY: See Below FAMILY HISTORY: See Below SOCIAL HISTORY: See Below HOME MEDICATIONS: See Below ALLERGIES: See Below VITALS: See Below PHYSICAL EXAMINATION: GENERAL: Sitting up in bed, alert, well appearing, well nourished, no distress, non-toxic EYE EXAM: normal conjunctiva. OROPHARYNX: no exudate, no erythema, lips, buccal mucosa, and tongue normal and mucous membranes are moist NECK: supple, no nuchal rigidity, no adenopathy, non-tender LUNGS: Clear to auscultation. Normal chest wall mechanics HEART: no murmurs, regular rate, regular rhythm ABDOMEN: abdomen soft, non-tender, no masses, no rebound or guarding. BACK: Back is symmetrical on inspection and there is no deformity, no midline tenderness, no CVA tenderness. SKIN: no rashes and no bruising UPPER EXTREMITIES: upper extremities are grossly normal. LOWER EXTREMITIES: No pitting edema. NEURO EXAM: At baseline. Aphasic. Left hemiparesis. MEDICAL DECISION MAKING: Differential diagnoses includes but not limited to C. difficile infection, diverticulitis, lower GI bleed, bleeding hemorrhoids, anal fissure, infectious diarrhea, viral gastroenteritis, medication side effect, dehydration, failure to thrive, functional decline In summary, this is a 79 year old male who presented with GIB in setting of diarrheal illness. Differential as above. Nursing notes and pertinent past medical records reviewed. Vital signs reviewed and the patient is intermittently tachycardic but otherwise afebrile and hemodynamically stable. History and presentation revealed recent course over the past few weeks of a complicated UTI that was complicated by acute encephalopathy. Now has a diarrheal illness with GI bleeding. Raising suspicion for possible infectious diarrhea. I was able to review records with care management from [facility] as well as [facility]. Does appear the patient was on Ceftin and transition to nitrofurantoin recently. Now having profuse diarrhea with evidence of GI bleeding. Would be a concern for infectious diarrhea including C. difficile infection. Would place him at high risk for lower GI bleeding given dual antiplatelet therapy, vital signs and age. Physical examination revealed as above. As a result of my initial evaluation, we will plan for IV fluid resuscitation while obtaining lab work, stool pathogen panel and a CT abdomen/pelvis for further evaluation. Diagnostics interpreted by me include EKG and cardiac monitoring as listed below: -Cardiac Monitoring: An order was placed for continuous cardiac monitoring. The monitor shows a rate of 80-100 with regular rhythm. -ECG: normal sinus rhythm at a ventricular rate of [address] segment changes to suggest STEMI. Intervals are otherwise within normal limits. There is left axis deviation present. Patient completed laboratory studies and imaging. Results independently interpreted by me are mild leukocytosis. No significant anemia. pseudohyponatremia present in the setting of hyperglycemia. No significant lyte derangements, kidney dysfunction or elevation in LFTs/lipase. The patient was managed with IV fluid resuscitation. Union score for lower GI bleeding calculated. Discharge is not recommended. While I do agree the patient's lower GI bleed could be reactive to his diarrheal illness, I do feel that his hemoglobin and hemodynamics should be monitored in the hospital. CT abdomen/pelvis reveals no acute bleeding but evidence of colitis on exam Per my independent interpretation. Chronic medical conditions discussed with the patient's . Patient had a large stroke within the past year. He continues to have a functional decline. I again do believe the patient would benefit from inpatient rehabilitation services and this was discussed. The hospitalist team will need to discuss further with PT/OT as well as care management to see if he would benefit from this type of inpatient setting. Stool pathogen panel returned positive for C. difficile and he was started on oral vancomycin. Ultimately, the decision was made to admit the patient for lower GI bleeding with diarrheal illness secondary to C. difficile colitis. I discussed the case with the hospitalist service via telephone/Tiger[employer] and they are agreeable to admit the patient to their services. Based on the above, including the patient's age, coexisting illnesses, labs, imaging, and exam findings the decision to treat as an inpatient. I discussed the patient with the hospitalist team who recommended admission to their services. They received the medications, treatments, interventions indicated above and their condition remained guarded. I discussed my findings with the patient and their family and they understand and agree with the treatment plan. All patient / family questions were answered to their satisfaction. Consults/Care Managements Discussions: Per [facility] ER treatment provided: See above Procedures:none Critical Care: None The chart was completed utilizing [employer] Speech voice recognition software. Grammatical errors, random word insertions, pronoun errors, and incomplete sentences are an occasional consequence of this system due to software limitations, ambient noise, and hardware issues. Any formal questions or concerns about the content, text, or information contained within the body of this dictation should be directly addressed to the physician for clarification. Past Med/Surg History Problem List (Updated 07/24/25 @ 02:03 by Clayton Rios DO) Diarrhea (Acute) C. difficile colitis (Acute) LGI bleed (Acute) Lower GI bleed Recent urinary tract infection C. difficile colitis H/O: CVA (cerebrovascular accident) Vascular disease (Acute) Weakness (Acute) Aphasia (Acute) Acute encephalopathy (Acute) Abnormal CT scan of lung Vascular dementia (Acute) Aspiration pneumonia (Acute) Aspiration pneumonia Altered mental status (Acute) Scalp laceration Frequent falls (Acute) DM2 (diabetes mellitus, type 2) Vertebral artery occlusion HTN (hypertension) Carotid stenosis, symptomatic, with infarction Acute CVA (cerebrovascular accident) Memory impairment Transient cerebral ischemia (Acute) Blood glucose elevated (Acute) Medical History H/O: CVA (cerebrovascular accident) Vascular dementia Stroke TIA (transient ischemic attack) Acute confusion Surgical History No pertinent past surgical history Family History Father , He in his 70s of an MD Primary Parkinson's disease Myocardial infarction Mother , age 101 No problems noted. 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 Store Required: No Beliefs That Will Affect Care: None Current Living Situation: Spouse Other Information That Helps Us Care for You: No Feels Safe at Home: Yes Safety Concerns: Feels Safe At This Time Assistive Devices: Walker and Wheelchair Allergies Allergies Allergy/AdvReac Type Severity Reaction Status Date / Time No Known Allergies Allergy Verified 01/09/25 14:31 Home Meds Home Medications Medication Instructions Recorded Confirmed insulin degludec 100 unit/mL (3 23 unit subcut HS 07/06/20 07/23/25 mL) subcutaneous pen (Tresiba FlexTouch U-100 insulin) cholecalciferol (vitamin D3) 25 25 mcg PO QAM 07/25/22 07/23/25 mcg (1,000 unit) capsule (Vitamin D3) aspirin 81 mg tablet,delayed 81 mg PO QAM 07/14/25 07/23/25 release (Ecotrin Low Strength) coenzyme Q10 100 mg capsule (Co 100 mg PO DAILY 07/23/25 07/23/25 Q-10) insulin aspart U-100 100 unit/mL 1 sliding scale dose subcut 07/23/25 07/23/25 (3 mL) subcutaneous pen (Novolog USEASDIRECTD FlexPen U-100 Insulin aspart) magnesium 200 mg tablet 200 mg PO DAILY 07/23/25 07/23/25 nitrofurantoin 100 mg PO BID 07/23/25 07/23/25 monohydrate/macrocrystals 100 mg capsule Previous Rx's Medication Instructions Recorded atorvastatin 80 mg tablet 80 mg PO HS #30 tabs 07/17/25 clopidogrel 75 mg tablet 75 mg PO QAM #30 tabs 07/17/25 Results & Data (ED) Vital Signs Vital Signs - 24 hr 07/23/25 16:20 07/23/25 16:42 07/23/25 16:43 Temperature 36.7 C Temperature Source Temporal Artery Scan Pulse Rate 97 H 85 92 H Respiratory Rate 19 16 Respiratory Effort / Characteristics Non-Labored Spontaneous Respiratory Depth Normal Respiratory Pattern Regular Blood Pressure 126/72 124/88 Blood Pressure Mean 90 100 Pulse Oximetry 95 96 Oxygen Delivery Method Room Air Sepsis Recent Fever Within 48 Hours No Sepsis New/Unexplained Change in Mental Status No Sepsis Action Taken by Nursing No Action Required 07/23/25 17:20 07/23/25 17:30 07/23/25 19:01 Temperature Temperature Source Pulse Rate 90 85 Respiratory Rate 12 16 Respiratory Effort / Characteristics Respiratory Depth Respiratory Pattern Blood Pressure 121/78 118/71 Blood Pressure Mean 92 82 Pulse Oximetry 96 97 98 Oxygen Delivery Method Room Air Sepsis Recent Fever Within 48 Hours Sepsis New/Unexplained Change in Mental Status Sepsis Action Taken by Nursing 07/23/25 19:30 07/23/25 20:00 Temperature Temperature Source Pulse Rate 97 H 92 H Respiratory Rate 12 12 Respiratory Effort / Characteristics Respiratory Depth Respiratory Pattern Blood Pressure 122/74 130/81 Blood Pressure Mean 90 92 Pulse Oximetry 96 96 Oxygen Delivery Method Sepsis Recent Fever Within 48 Hours Sepsis New/Unexplained Change in Mental Status Sepsis Action Taken by Nursing Laboratory Data 07/23/25 20:56 07/23/25 17:21 Lab Results 07/23/25 07/23/25 Range/Units 17:00 17:21 WBC 13.25 H (4.8-10.8) K/ul RBC 5.03 (4.70-6.10) M/uL Hgb 15.9 (14.0-18.0) g/dl Hct 44.7 (42.0-52.0) % MCV 88.9 (80.0-100.0) fL MCH 31.6 (25.0-34.0) pg MCHC 35.6 (32.0-36.0) g/dL RDW Std Deviation 42.5 (36.4-46.3) fL RDW Coeff of Nikita 13.1 (11.5-14.5) % Plt Count 273 (130-400) K/uL MPV 9.1 L (9.4-12.4) fL Immature Gran % (Auto) 0.5 % Neut % (Auto) 76.7 % Lymph % (Auto) 8.9 % Kimble % (Auto) 13.4 % Eos % (Auto) 0.2 % Baso % (Auto) 0.3 % Neut # (Auto) 10.15 H (1.40-6.50) K/uL Lymph # (Auto) 1.18 L (1.20-3.40) K/uL Kimble # (Auto) 1.78 H (0.11-0.59) K/uL Eos # (Auto) 0.03 (0.00-0.50) K/uL Baso # (Auto) 0.04 (0.00-0.20) K/uL Immature Gran # (Auto) 0.07 (0.01-0.20) K/uL PT 10.7 (9.0-12.0) Seconds INR 1.0 (0.9-1.1) APTT 28 (21-31) Seconds PTT Ratio 1.0 Sodium 135 L (136-145) mmol/L Potassium 4.0 (3.5-5.1) mmol/L Chloride 99 (98-107) mmol/L Carbon Dioxide 26 (21-32) mmol/L Anion Gap 10 (3-11) BUN 9 (6-23) mg/dl Creatinine 0.76 (0.6-1.4) mg/dl Est Cr Clr Drug Dosing 76.3 ml/min eGFR 92.57 BUN/Creatinine Ratio 11.8 (10-20) Glucose 144 H (70-99(Fasting)) mg/dl Calcium 9.2 (8.6-10.3) mg/dl Total Bilirubin 0.8 (0.2-1.0) mg/dl AST 16 (13-39) U/L ALT 14 (7-52) U/L Alkaline Phosphatase 48 (34-104) U/L Total Protein 7.1 (6.0-8.3) gm/dl Albumin 3.8 (3.4-5.0) gm/dl Globulin 3.3 (2.5-4.0) gm/dl Albumin/Globulin Ratio 1.2 (0.9-2) Lipase 7 L (11-82) U/L Stl C. cayetanensis PCR Not Detected (NotDetected) Stool Rotavirus A PCR Not Detected (NotDetected) Stl Adenov F 40/41 PCR Not Detected (NotDetected) Stool Astrovirus (PCR) Not Detected (NotDetected) Stool Campylobacter PCR Not Detected (NotDetected) Stl C. diff Tox B Gene Positive Cdiff Gene A (Neg) Stl C.difficile Tox A&B Positive Cdiff Toxin A* (Negative) Stl C. diff [id number]-[id number] NEGATIVE Stool Cryptosporidium PCR Not Detected (NotDetected) Stl E.coli Shiga Tox PCR Not Detected (NotDetected) Stl Enterotoxigenic E PCR Not Detected (NotDetected) Stool EPEC (PCR) Not Detected (NotDetected) Stool EAEC (PCR) Not Detected (NotDetected) Stl E. histolytica PCR Not Detected (NotDetected) Stool Giardia Lamblia PCR Not Detected (NotDetected) Stool Salmonella PCR Not Detected (NotDetected) Stool Sapovirus (PCR) Not Detected (NotDetected) Stl P. shigelloides PCR Not Detected (NotDetected) Stl Shigella/EIEC PCR Not Detected (NotDetected) St Y.enterocolitica PCR Not Detected (NotDetected) Stool Vibrio (PCR) Not Detected (NotDetected) Stl Vibrio cholerae PCR Not Detected (NotDetected) Stl Norovirus GI/GII PCR Not Detected (NotDetected) Administered Medications Atorvastatin Calcium (Atorvastatin 40 Mg Tab) 80 mg PO HS PAO Stop: 08/22/25 21:55 Last Admin: 07/23/25 22:28 Dose: 80 mg Documented By: adrienne Chavez Syrup (Chavez Syrup 5 Ml Udp) 5 ml PO Q6 PAO Stop: 08/02/25 19:45 Last Admin: 07/23/25 23:23 Dose: 5 ml Documented By: adrienne Admin: 07/23/25 21:58 Dose: 5 ml Documented By: adrienne Clotrimazole (Clotrimazole 1% Cr 15 Gm Tube) 1 appln EXT BID POA Stop: 08/22/25 21:14 Last Admin: 07/23/25 22:24 Dose: Not Given Documented By: adrienne Insulin Aspart (Insulin Aspart Per Unit Charge) 0 units SC ACHS PAO Stop: 08/22/25 21:55 Last Admin: 07/23/25 22:28 Dose: 1 units Documented By: adrienne Co-signed By: LEONADRO Vancomycin HCl (Vancomycin Hcl 125 Mg/2.5ml Soln) 125 mg PO Q6 [facility]; Protocol Stop: 08/02/25 19:59 Last Admin: 07/23/25 23:23 Dose: 125 mg Documented By: adrienne Admin: 07/23/25 21:58 Dose: 125 mg Documented By: adrienne Discontinued Medications Sodium Chloride (Nss) 1,000 mls @ 999 mls/hr IV .Q1H1M PAO Stop: 07/23/25 17:45 Last Infusion: 07/23/25 18:28 Dose: Infused Documented By: Admin: 07/23/25 16:51 Dose: 999 mls/hr Documented By: SHALINI Pantoprazole Sodium (Protonix) 40 mg in 10 mls @ 5 mls/min IV NOW ONE Stop: 07/23/25 16:34 Last Admin: 07/23/25 16:55 Dose: 5 mls/min Documented By: SHALINI Ioversol (Optiray 320 100ml) 90 ml IV ONCE ONE Stop: 07/23/25 18:37 Last Admin: 07/23/25 18:36 Dose: 90 ml Documented By: ISRRAEL Imaging Data Radiologist's Impression: Abdomen/Pelvis CT 07/23/25 16:33 EXAMINATION: Abdomen and pelvis CT with CLINICAL HISTORY: Per patient , GI bleeding bright red blood, recent hospitalization for UTI. Weakness. PRIORS: Non 01/25/2025 TECHNIQUE: Contiguous axial images were obtained through the abdomen and pelvis with the use of intravenous contrast. Sagittal and coronal reformations are supplied. FINDINGS: Mild hypoventilatory changes of the lung bases. Arms and middle ring on the abdomen in the [id number] create significant beam hardening artifact and diminished image quality. The liver, gallbladder, portal vein, pancreas, spleen, stomach, adrenals, and IVC are morphologically unremarkable. Advanced atherosclerotic disease of the abdominal aorta. The kidneys enhance symmetrically. No hydronephrosis or obstructing calculus. Circumferential wall thickening and inflammatory change is present involving the transverse, descending and sigmoid colon with engorgement of the perforating vasculature and mild regional inflammatory change. These findings are most pronounced involving the sigmoid colon. Allowing for under distention, the ascending colon may be unaffected. No ascites, extraluminal gas or adenopathy. A focal small bowel to small bowel intussusception is present in the right lower quadrant, image 58, series 2 Urinary bladder is underdistended with moderate circumferential wall thickening. Prostate is moderately enlarged. No extraluminal gas, dilated loops of bowel or adenopathy. Moderate to advanced degenerative change of the lumbar spine. IMPRESSION: 1. Moderate circumferential wall thickening of the transverse, descending, sigmoidcolon and rectum with pericolonic inflammatory change, compatible with colitis. The ascending colon is underdistended and not well visualized and may be unaffected.. No surrounding inflammatory change or gas. 2. Small bowel to small bowel intussusception in the right lower quadrant which can be seen as a transient finding on CT. Please correlate if there is right lower quadrant pain at the level of the anterior superior iliac spine. No surrounding inflammatory change. 3. Moderate enlargement of the prostate with circumferential urinary bladder wall thickening which may impart be due to under distention. Acute cystitis is also on the differential diagnosis. ACT 112: Positive. There are findings on this examination that require communication between the performing entity and the patient following Patient Test Result Information Act ([place] ACT 112) guidelines. Electronically signed by Deisy Schneider 07-23-2025 7:01 PM Discharge Plan Visit Data Chief Complaint: Referred by Doctor Stated Complaint: REF BY DR SORENSEN Provider: Clayton Rios Discharge Problem: LGI bleed, C. difficile colitis, Diarrhea Patient Disposition: Admitted As Inpatient Condition: Fair Discharge Instructions Interventions: ED Discharge Assessment Last Done: 07/23/25 21:52
[2025-07-23] MEDS: PANTOprazole 40 MG/10 ML SYR IV ONE (16:55)
[2025-07-23 17:53] LABS: Hematocrit (blood only) 44.7 % (42.0-52.0); Hemoglobin 15.9 g/dl (14.0-18.0); Immature Granulocytes # (auto) 0.07 K/uL (0.01-0.20); Immature Granulocytes % (auto) 0.5 %; Mean Corpuscular Hemoglobin 31.6 pg (25.0-34.0); Mean Corpuscular Volume 88.9 fL (80.0-100.0); Platelet Count 273 K/uL (130-400); RDW Standard Deviation 42.5 fL (36.4-46.3); Red Blood Count 5.03 M/uL (4.70-6.10); White Blood Count 13.25 K/ul (4.8-10.8)
[2025-07-23 18:05] LABS: Alanine Aminotransferase 14.0 U/L (7-52); Albumin Globulin Ratio 1.2 (0.9-2); Albumin Level 3.8 gm/dl (3.4-5.0); Alkaline Phosphatase 48.0 U/L (34-104); Anion Gap 10.0 (3-11); Bilirubin,Total 0.8 mg/dl (0.2-1.0); Blood Urea Nitrogen 9.0 mg/dl (6-23); Calcium 9.2 mg/dl (8.6-10.3); Carbon Dioxide 26.0 mmol/L (21-32); Chloride 99.0 mmol/L (98-107); Creatinine Clr Calc Pharmacy 76.3 ml/min; Globulin 3.3 gm/dl (2.5-4.0); Glucose 144.0 mg/dl (70-99(Fasting)); Lipase 7.0 U/L (11-82); Potassium 4.0 mmol/L (3.5-5.1); Sodium 135.0 mmol/L (136-145); Total Protein 7.1 gm/dl (6.0-8.3)
[2025-07-23 18:22] LABS: INR 1.0 (0.9-1.1); Partial Thromboplastin Time 28 Seconds (21-31); Prothrombin Time 10.7 Seconds (9.0-12.0)
[2025-07-23] MEDS: OPTIRAY 320 100ml IV ONE (18:36)
[2025-07-23 18:39] LABS: Adenovirus F 40/41 PCR Not Detected (NotDetected); Campylobacter PCR Not Detected (NotDetected); Enteroaggregative E.coli(EAEC) Not Detected (NotDetected); Shiga-like Toxin E.coli (STEC) Not Detected (NotDetected); Vibrio species PCR Not Detected (NotDetected)
--- NOTE | 2025-07-23 19:01 | CT Scan Report ---
EXAMINATION: Abdomen and pelvis CT with CLINICAL HISTORY: Per patient , GI bleeding bright red blood, recent hospitalization for UTI. Weakness. PRIORS: Non 01/25/2025 TECHNIQUE: Contiguous axial images were obtained through the abdomen and pelvis with the use of intravenous contrast. Sagittal and coronal reformations are supplied. FINDINGS: Mild hypoventilatory changes of the lung bases. Arms and middle ring on the abdomen in the [id number] create significant beam hardening artifact and diminished image quality. The liver, gallbladder, portal vein, pancreas, spleen, stomach, adrenals, and IVC are morphologically unremarkable. Advanced atherosclerotic disease of the abdominal aorta. The kidneys enhance symmetrically. No hydronephrosis or obstructing calculus. Circumferential wall thickening and inflammatory change is present involving the transverse, descending and sigmoid colon with engorgement of the perforating vasculature and mild regional inflammatory change. These findings are most pronounced involving the sigmoid colon. Allowing for under distention, the ascending colon may be unaffected. No ascites, extraluminal gas or adenopathy. A focal small bowel to small bowel intussusception is present in the right lower quadrant, image 58, series 2 Urinary bladder is underdistended with moderate circumferential wall thickening. Prostate is moderately enlarged. No extraluminal gas, dilated loops of bowel or adenopathy. Moderate to advanced degenerative change of the lumbar spine. IMPRESSION: 1. Moderate circumferential wall thickening of the transverse, descending, sigmoidcolon and rectum with pericolonic inflammatory change, compatible with colitis. The ascending colon is underdistended and not well visualized and may be unaffected.. No surrounding inflammatory change or gas. 2. Small bowel to small bowel intussusception in the right lower quadrant which can be seen as a transient finding on CT. Please correlate if there is right lower quadrant pain at the level of the anterior superior iliac spine. No surrounding inflammatory change. 3. Moderate enlargement of the prostate with circumferential urinary bladder wall thickening which may impart be due to under distention. Acute cystitis is also on the differential diagnosis. ACT 112: Positive. There are findings on this examination that require communication between the performing entity and the patient following Patient Test Result Information Act ([place] ACT 112) guidelines. Electronically signed by Deisy Schneider 07-23-2025 7:01 PM
[2025-07-23 19:11] LABS: Cdiff Toxin B Gene (2yr or >) Positive Cdiff Gene (Neg)
[2025-07-23 19:17] LABS: Cdiff Toxin A+B Positive Cdiff Toxin (Negative)
--- NOTE | 2025-07-23 20:38 | History & Physical Report ---
Date of Service July 23, 2025 Assessment & Plan (1) C. difficile colitis: (2) Lower GI bleed: Plan: Admit to med/surg Patient presenting from home for evaluation of diarrhea. Patient recently admitted to [facility] 07/14 - 07/17 for Klebsiella UTI. Patient discharged on a course of cefuroxime. Patient also evaluated by neurology during previous admission and was started on Plavix in addition to ASA given the extend of his cerebrovascular disease. reports patient developed diarrhea shortly after returning home. Has been going multiple times per day. called PCPs office and was instructed to start probiotic. Due to ongoing symptoms, cefuroxime was changed to Macrobid yesterday. Patient was also evaluated in [facility] ED on Sunday and was ultimately discharged home. In the ED, patient is hemodynamically stable. Labs show WBC 13K, hgb 15.9. + C. Diff. CT abd/pelvis shows Moderate circumferential wall thickening of the transverse, descending, sigmoid colon and rectum with pericolonic inflammatory change, compatible with colitis. Patient was given IVF, IV Protonix, PO Vanco. CT also shows: Small bowel to small bowel intussusception in the right lower quadrant which can be seen as a transient finding on CT. Please correlate if there is right lower quadrant pain at the level of the anterior superior iliac spine. -- no tenderness noted on exam Continue PO Vanco Clear liquid diet Likely lower GI bleed in the setting of acute colitis Hold ASA/Plavix Continue to monitor H/H, consider GI consult (3) Recent urinary tract infection: Plan: Recent urine culture positive for Klebsiella variicola - discharged on a course of cefuroxime and changed to Macrobid yesterday Patient was treated for a total of 9 days - no further antibiotics indicated Will check UA (4) H/O: CVA (cerebrovascular accident): Plan: Hold ASA and Plavix as above Continue statin (5) DM2 (diabetes mellitus, type 2): Plan: Hgb A1c 7.0 06/2025 Novolog per protocol while hospitalized DVT PROPHYLAXIS SCDs due to lower GI bleeding Patient seen in collaboration with Dr. Solares. I spent a total of 75 minutes coordinating, documenting, and providing care for this patient excluding time spent in the performance of separately billed services. This included personally reviewing all current laboratories and imaging studies, medication reconciliation, outpatient chart review, and discussion with specialists. History of Present Illness Chief Complaint: Diarrhea Primary Care Provider: Gera Hanley DO 79 year old male with PMH HLD, DM type II, right periventricular, right thalamic, and right occipital infarct ( 01/11/2025), left occipital, left f rontal, left MCA, and right frontal infarct ( 07/2022), LICA stenosis s/p stent, left vertebral artery occlusion, right vertebral artery stenoses, left subclavian artery stenoses, bilateral carotid atherosclerosis, vascular dementia, and other problems listed below who presents to the ED for evaluation of diarrhea. Patient recently admitted to [facility] 07/14 - 07/17 for Klebsiella UTI. Patient discharged on a course of cefuroxime. Patient also evaluated by neurology during previous admission and was started on Plavix in addition to ASA given the extend of his cerebrovascular disease. History is limited from the patient due to underlying dementia. reports patient developed diarrhea shortly after returning home. Has been going multiple times per day. called PCPs office and was instructed to start probiotic. Due to ongoing symptoms, cefuroxime was changed to Macrobid yesterday. Developed some BRBPR and maroon colored stools. Was seen at [facility] ER yesterday and was ultimately discharged home. Appetite has been poor however no vomiting reported. Denies fever or rigors. In the ED, patient is hemodynamically stable. Labs show WBC 13K, hgb 15.9. + C. Diff. CT abd/pelvis shows Moderate circumferential wall thickening of the transverse, descending, sigmoid colon and rectum with pericolonic inflammatory change, compatible with colitis. Patient was given IVF, IV Protonix, PO Vanco. Allergies Allergy/AdvReac Type Severity Reaction Status Date / Time No Known Allergies Allergy Verified 01/09/25 14:31 Home Medications Medication Instructions Recorded Confirmed Type insulin degludec 100 unit/mL (3 23 unit subcut HS 07/06/20 07/23/25 History mL) subcutaneous pen (Tresiba FlexTouch U-100 insulin) cholecalciferol (vitamin D3) 25 25 mcg PO QAM 07/25/22 07/23/25 History mcg (1,000 unit) capsule (Vitamin D3) aspirin 81 mg tablet,delayed 81 mg PO QAM 07/14/25 07/23/25 History release (Ecotrin Low Strength) atorvastatin 80 mg tablet 80 mg PO HS #30 tabs 07/17/25 07/23/25 Rx clopidogrel 75 mg tablet 75 mg PO QAM #30 tabs 07/17/25 07/23/25 Rx coenzyme Q10 100 mg capsule (Co 100 mg PO DAILY 07/23/25 07/23/25 History Q-10) insulin aspart U-100 100 unit/mL 1 sliding scale dose subcut 07/23/25 07/23/25 History (3 mL) subcutaneous pen (Novolog USEASDIRECTD FlexPen U-100 Insulin aspart) magnesium 200 mg tablet 200 mg PO DAILY 07/23/25 07/23/25 History vancomycin 125 mg capsule 125 mg PO QID 8 days #32 caps 07/26/25 Rx Past Med/Surg History Problem List (Updated 07/24/25 @ 02:03 by Clayton Rios DO) Diarrhea (Acute) C. difficile colitis (Acute) LGI bleed (Acute) Lower GI bleed Recent urinary tract infection C. difficile colitis H/O: CVA (cerebrovascular accident) Vascular disease (Acute) Weakness (Acute) Aphasia (Acute) Acute encephalopathy (Acute) Abnormal CT scan of lung Vascular dementia (Acute) Aspiration pneumonia (Acute) Aspiration pneumonia Altered mental status (Acute) Scalp laceration Frequent falls (Acute) DM2 (diabetes mellitus, type 2) Vertebral artery occlusion HTN (hypertension) Carotid stenosis, symptomatic, with infarction Acute CVA (cerebrovascular accident) Memory impairment Transient cerebral ischemia (Acute) Blood glucose elevated (Acute) Medical History H/O: CVA (cerebrovascular accident) Vascular dementia Stroke TIA (transient ischemic attack) Acute confusion Surgical History No pertinent past surgical history Family History Father , He in his 70s of an [place] Primary Parkinson's disease Myocardial infarction Mother , age 101 No problems noted. Social History Smoking Status: Unknown if ever smoked Tobacco Type: Cigarettes Cigarettes Per Day: Pt unable to answer; Second Hand Exposure: No; Do You Dip or Chew Tobacco: No; Tobacco Cessation Education Requested by Patient: No Hx Alcohol Use: No Hx Substance Use: No Preferred Language: Nigerien Communication Ability: Impaired Meter Technician Required: No Beliefs That Will Affect Care: None Current Living Situation: Spouse Other Information That Helps Us Care for You: No Feels Safe at Home: Yes Safety Concerns: Feels Safe At This Time Assistive Devices: Lift Chair, Mechanical Lift, Slide Board, Walker, Wheelchair and Other Physical Exam Constitutional: + ill appearing (chronically); no acute distress Respiratory: normal respiratory effort, lungs clear to auscultation Cardiovascular: Rate/Rhythm: regular rate and regular rhythm Vessels: normal peripheral pulses Extremities: no edema Gastrointestinal (Abdomen): Percussion/Palpation: abdomen soft; abdomen nontender Skin: no rashes, warm and dry Psychiatric: sleeping, arouses to verbal stimuli but falls back to sleep quickly, oriented to self only Results & Data Results & Data Vital Signs (Past 12 Hours) Vital Signs Temp Pulse Resp BP Pulse Ox O2 Del Method 07/23/25 17:20 96 Room Air 07/23/25 16:43 92 H 07/23/25 16:20 36.7 C 97 H 19 126/72 95 Room Air Laboratory Results Short CBC 07/23/25 Range/Units 17:21 WBC 13.25 H (4.8-10.8) K/ul Hgb 15.9 (14.0-18.0) g/dl Hct 44.7 (42.0-52.0) % Plt Count 273 (130-400) K/uL BMP 07/23/25 17:21 Sodium 135 L Potassium 4.0 Chloride 99 Carbon Dioxide 26 BUN 9 Creatinine 0.76 Glucose 144 H Calcium 9.2 Liver Function 07/23/25 Range/Units 17:21 Total Bilirubin 0.8 (0.2-1.0) mg/dl AST 16 (13-39) U/L ALT 14 (7-52) U/L Alkaline Phosphatase 48 (34-104) U/L Albumin 3.8 (3.4-5.0) gm/dl Diagnostic Findings Abdomen/Pelvis CT 07/23/25 16:33 EXAMINATION: Abdomen and pelvis CT with CLINICAL HISTORY: Per patient , GI bleeding bright red blood, recent hospitalization for UTI. Weakness. PRIORS: Non 01/25/2025 TECHNIQUE: Contiguous axial images were obtained through the abdomen and pelvis with the use of intravenous contrast. Sagittal and coronal reformations are supplied. FINDINGS: Mild hypoventilatory changes of the lung bases. Arms and middle ring on the abdomen in the [id number] create significant beam hardening artifact and diminished image quality. The liver, gallbladder, portal vein, pancreas, spleen, stomach, adrenals, and IVC are morphologically unremarkable. Advanced atherosclerotic disease of the abdominal aorta. The kidneys enhance symmetrically. No hydronephrosis or obstructing calculus. Circumferential wall thickening and inflammatory change is present involving the transverse, descending and sigmoid colon with engorgement of the perforating vasculature and mild regional inflammatory change. These findings are most pronounced involving the sigmoid colon. Allowing for under distention, the ascending colon may be unaffected. No ascites, extraluminal gas or adenopathy. A focal small bowel to small bowel intussusception is present in the right lower quadrant, image 58, series 2 Urinary bladder is underdistended with moderate circumferential wall thickening. Prostate is moderately enlarged. No extraluminal gas, dilated loops of bowel or adenopathy. Moderate to advanced degenerative change of the lumbar spine. IMPRESSION: 1. Moderate circumferential wall thickening of the transverse, descending, sigmoidcolon and rectum with pericolonic inflammatory change, compatible with colitis. The ascending colon is underdistended and not well visualized and may be unaffected.. No surrounding inflammatory change or gas. 2. Small bowel to small bowel intussusception in the right lower quadrant which can be seen as a transient finding on CT. Please correlate if there is right lower quadrant pain at the level of the anterior superior iliac spine. No surrounding inflammatory change. 3. Moderate enlargement of the prostate with circumferential urinary bladder wall thickening which may impart be due to under distention. Acute cystitis is also on the differential diagnosis. ACT 112: Positive. There are findings on this examination that require communication between the performing entity and the patient following Patient Test Result Information Act ([place] ACT 112) guidelines. Electronically signed by Deisy Schneider 07-23-2025 7:01 PM Code Status & VTE Plan VTE Prophylaxis Plan VTE Prophylaxis will be ordered: Yes Supervising Physician Co-Signing Physician Notes IM ATTENDING : Patient seen and examined. History obtained from patient, family, and records. Limited history from patient secondary to dementia. Concur with salient points upon review of preceding documentation by ANNEMARIE Phillips In addition, patient noted by to have a scaly rash on his face the last few days. I take responsibility for plan of care below. FINAL ASSESSMENT AND PLAN as follows : LGIB secondary to C. difficile colitis Recent antibiotic Rx for UTI Patient on DAPT for secondary prevention, history left MCA ischemic stroke status post stent, PVD dementia, mentation at baseline Hypertension, stable mild hyperlipidemia on statin Rx DM2 insulin requiring, well-controlled as of recent hemoglobin A1c of 7, last month Possible seborrheic dermatitis, face Possible deconditioning past tobacco abuse Admit to medical Oral vancomycin course Clear liquid diet for now Hold antiplatelet Rx for now Follow H&H, transfuse PRBC to maintain hemoglobin of at least 8 given history cerebrovascular disease Basal bolus insulin adjusted for pure liquid diet, ISS BG goal 110-140, carb count coverage Topical antifungal for possible seborrheic dermatitis PT OT eval DVT prophylaxis. SCDs re: GI bleed DNR Patient's requesting updates for providers. Romaine Ana Maria Oconnor, contact number [phone]. I spent a total of 30 minutes coordinating, documenting, and providing care for this patientexcludingtime spent by another provider/QHP. Text document was generated using [employer] voice recognition software. It may contain grammatical or spelling errors. Kindly contact undersigned for clarification of any documentation item in question.
[2025-07-23 21:38] LABS: Hematocrit (blood only) 42.5 % (42.0-52.0); Hemoglobin 15.3 g/dl (14.0-18.0)
[2025-07-23] MEDS ORDERED: GLUCAGON FOR INJ 1 MG VIAL SQ PRN (21:56)
[2025-07-23] MEDS ORDERED: DEXTROSE 50% 50 ML SYRINGE IV PRN (21:56)
[2025-07-23] MEDS ORDERED: GLUCOSE 40% GEL 15 GM TUBE PO PRN (21:56)
[2025-07-23] MEDS ORDERED: ACETAMINOPHEN 325 MG TAB PO PRN (21:56)
[2025-07-23] MEDS ORDERED: CARBOHYDRATES FOR HYPOGLYCEMIA PO PRN (21:56)
[2025-07-23] MEDS ORDERED: GLUCOSE 10 TAB/TUBE PO PRN (21:56)
[2025-07-23] MEDS: CHERRY SYRUP 5 ML UDP PO SCH (21:58)
[2025-07-23] MEDS: VANCOMYCIN HCL 125 MG/2.5ML SOLN PO SCH (21:58)
[2025-07-23] MEDS: CLOTRIMAZOLE 1% CR 15 GM TUBE EXT SCH (22:24)
[2025-07-23] MEDS: ATORVASTATIN 40 MG TAB PO SCH (22:28)
[2025-07-23] MEDS: INSULIN ASPART PER UNIT CHARGE SC SCH (22:28)
[2025-07-24] MEDS ORDERED: VANCOMYCIN HCL 125 MG/2.5ML SOLN PO SCH
[2025-07-24] MEDS ORDERED: VANCOMYCIN HCL 125 MG CAP PO SCH
[2025-07-24 05:05] LABS: Appearance Urine Clear (Clear); Bacteria Urine Automated None Seen (None Seen); Cast Urine Automated 0-2 /lpf (0-2); Epithelial Cell Urine Auto 0-2 /hpf (0-2); Glucose Urine UA Negative (Negative); RBC Urine Automated 0-2 /hpf (0-2); WBC Urine Automated 0-5 /hpf (0-5)
[2025-07-24 06:44] LABS: Hematocrit (blood only) 38.6 % (42.0-52.0); Hemoglobin 13.1 g/dl (14.0-18.0); Mean Corpuscular Hemoglobin 30.3 pg (25.0-34.0); Mean Corpuscular Volume 89.1 fL (80.0-100.0); Platelet Count 250 K/uL (130-400); RDW Standard Deviation 43.8 fL (36.4-46.3); Red Blood Count 4.33 M/uL (4.70-6.10); White Blood Count 12.55 K/ul (4.8-10.8)
[2025-07-24 06:51] LABS: Anion Gap 7.0 (3-11); Blood Urea Nitrogen 8.0 mg/dl (6-23); Calcium 8.7 mg/dl (8.6-10.3); Carbon Dioxide 26.0 mmol/L (21-32); Chloride 102.0 mmol/L (98-107); Creatinine Clr Calc Pharmacy 74.1 ml/min; Glucose 97.0 mg/dl (70-99(Fasting)); Potassium 3.7 mmol/L (3.5-5.1); Sodium 135.0 mmol/L (136-145)
[2025-07-24] MEDS: LANTUS PER UNIT CHARGE SQ SCH (08:13)
--- NOTE | 2025-07-24 10:48 | Electrocardiogram Report ---
Test Reason : Blood Pressure : */* mmHG Vent. Rate : 90 BPM Atrial Rate : 90 BPM P-R Int : 146 ms QRS Dur : 118 ms QT Int : 394 ms P-R-T Axes : 72 -51 88 degrees QTcB Int : 481 ms Normal sinus rhythm Left axis deviation Left ventricular hypertrophy with QRS widening and repolarization abnormality Abnormal ECG Confirmed by Antonio King ([id number]) on 07/24/2025 10:48:34 AM Referred By: REFERRED SELF Confirmed By: Antonio King
[2025-07-24] MEDS: NSS + 20MEQ KCL 20 MEQ/1,000 ML BAG IV ONE (12:15)
--- NOTE | 2025-07-24 14:41 | Hospitalist Progress Note ---
Date of Service July 24, 2025 Assessment & Plan (1) C. difficile colitis: (2) Lower GI bleed: Plan: Patient presenting from home for evaluation of diarrhea. Patient recently admitted to [facility] 07/14 - 07/17 for Klebsiella UTI. Patient discharged on a course of cefuroxime. Patient also evaluated by neurology during previous admission and was started on Plavix in addition to ASA given the extend of his cerebrovascular disease. reports patient developed diarrhea shortly after returning home. Has been going multiple times per day. called PCPs office and was instructed to start probiotic. Due to ongoing symptoms, cefuroxime was changed to Macrobid. Patient was also evaluated in [facility] ED and was ultimately discharged home. C. difficile colitis Rectal bleed likely due to above --CT ABD: Moderate circumferential wall thickening of the transverse, descending, sigmoidcolon and rectum with pericolonic inflammatory change, compatible with colitis. The ascending colon is underdistended and not well visualized and may be unaffected.. No surrounding inflammatory change or gas. Small bowel to small bowel intussusception in the right lower quadrant which can be seen as a transient finding on CT. Please correlate if there is right lower quadrant pain at the level of the anterior superior iliac spine. No surrounding inflammatory change. -- Stool positive for C. difficile gene and toxin Continue p.o. vancomycin IV fluids as needed Advance to full liquid diet for today Consider GI evaluation if continues to have bleeding per rectum Monitor CBC (3) Recent urinary tract infection: Plan: Recent urine culture positive for Klebsiella variicola - discharged on a course of cefuroxime and changed to Macrobid Patient was treated for a total of 9 days - no further antibiotics indicated Current UA within normal limits (4) H/O: CVA (cerebrovascular accident): Plan: Aspirin, Plavix initially held Resume Plavix tomorrow if no recurrence of rectal bleed Continue statin (5) DM2 (diabetes mellitus, type 2): Plan: Hgb A1c 7.0 06/2025 Novolog per protocol while hospitalized Monitor blood glucose levels Other chronic conditions: H/O CVA S/O ICA stent Vascular Dementia Hypertension Hyperlipidemia Past tobacco use Continue home medications as able DVT Px: SCDs for now Admission and Anticipated Discharge Date Admission Date: July 23, 2025 Subjective Patient is seen and examined at bedside Poor historian, slow to respond Denies any chest pain, abdominal pain, nausea, vomiting Was having diarrhea with blood-tinged overnight per veneer puller of Systems Review of Systems: All systems reviewed & are unremarkable except as noted in Subjective Physical Exam Physical Exam: Physical Exam: Vitals signs as noted above General Appearance: Thin, frail, chronic ill-appearing, no apparent distress Head: normocephalic, Atraumatic Eyes: normal inspection, EOMI Neck: supple, Trachea midline Respiratory/Chest: Decreased breath sounds, CTA, No accessory muscle use Cardiovascular: S1, S2, + murmur Abdomen/GI:Soft, Non tender, Bowel sounds present Extremities/Musculoskeletal:normal inspection, no edema Neurologic/Psych: Alert, awake, oriented, follows simple commands, slow to respond, difficult to perform complete neurological exam Skin: normal color, warm Results & Data Results & Data Vital Signs (Past 12 Hours) Vital Signs Temp Pulse Resp BP Pulse Ox O2 Del Method 07/24/25 07:30 Room Air 07/24/25 07:06 36.4 C L 78 18 100/63 95 Room Air Laboratory Results Short CBC 07/23/25 07/23/25 07/24/25 Range/Units 17:21 20:56 05:18 WBC 13.25 H 12.55 H (4.8-10.8) K/ul Hgb 15.9 15.3 13.1 L (14.0-18.0) g/dl Hct 44.7 42.5 38.6 L (42.0-52.0) % Plt Count 273 250 (130-400) K/uL BMP 07/23/25 07/24/25 17:21 05:18 Sodium 135 L 135 L Potassium 4.0 3.7 Chloride 99 102 Carbon Dioxide 26 26 BUN 9 8 Creatinine 0.76 0.82 Glucose 144 H 97 Calcium 9.2 8.7 Liver Function 07/23/25 Range/Units 17:21 Total Bilirubin 0.8 (0.2-1.0) mg/dl AST 16 (13-39) U/L ALT 14 (7-52) U/L Alkaline Phosphatase 48 (34-104) U/L Albumin 3.8 (3.4-5.0) gm/dl Urine 07/24/25 Range/Units 04:30 Urine Color Dark Yellow Urine Appearance Clear (Clear) Urine pH 5.0 (4.5-7.5) Ur Specific [place] > 1.045 H (1.000-1.030) Urine Protein Trace H (Negative) Urine Glucose (UA) Negative (Negative)
[2025-07-24] MEDS: INFLUENZA VACC TS2025-26(65y+)/PF (IIV3) 0.5mL Syr IM ONE (16:38)
[2025-07-25 06:22] LABS: Hematocrit (blood only) 36.7 % (42.0-52.0); Hemoglobin 12.2 g/dl (14.0-18.0); Mean Corpuscular Hemoglobin 29.9 pg (25.0-34.0); Mean Corpuscular Volume 90.0 fL (80.0-100.0); Platelet Count 210 K/uL (130-400); RDW Standard Deviation 43.8 fL (36.4-46.3); Red Blood Count 4.08 M/uL (4.70-6.10); White Blood Count 8.89 K/ul (4.8-10.8)
[2025-07-25 07:04] LABS: Anion Gap 4.0 (3-11); Blood Urea Nitrogen 9.0 mg/dl (6-23); Calcium 8.6 mg/dl (8.6-10.3); Carbon Dioxide 27.0 mmol/L (21-32); Chloride 106.0 mmol/L (98-107); Creatinine Clr Calc Pharmacy 77.9 ml/min; Glucose 84.0 mg/dl (70-99(Fasting)); Magnesium 1.9 mg/dl (1.7-2.4); Potassium 3.6 mmol/L (3.5-5.1); Sodium 137.0 mmol/L (136-145)
[2025-07-25 08:06] VITALS: RESP 18
[2025-07-25] MEDS: CLOPIDOGREL BISULFATE 75 MG TAB PO SCH (08:38)
--- NOTE | 2025-07-25 12:38 | Hospitalist Progress Note ---
Date of Service July 25, 2025 Assessment & Plan (1) C. difficile colitis: (2) Lower GI bleed: Plan: Patient presenting from home for evaluation of diarrhea. Patient recently admitted to [facility] 07/14 - 07/17 for Klebsiella UTI. Patient discharged on a course of cefuroxime. Patient also evaluated by neurology during previous admission and was started on Plavix in addition to ASA given the extend of his cerebrovascular disease. reports patient developed diarrhea shortly after returning home. Has been going multiple times per day. called PCPs office and was instructed to start probiotic. Due to ongoing symptoms, cefuroxime was changed to Macrobid. Patient was also evaluated in [facility] ED and was ultimately discharged home. C. difficile colitis Rectal bleed likely due to above --CT ABD: Moderate circumferential wall thickening of the transverse, descending, sigmoidcolon and rectum with pericolonic inflammatory change, compatible with colitis. The ascending colon is underdistended and not well visualized and may be unaffected.. No surrounding inflammatory change or gas. Small bowel to small bowel intussusception in the right lower quadrant which can be seen as a transient finding on CT. Please correlate if there is right lower quadrant pain at the level of the anterior superior iliac spine. No surrounding inflammatory change. -- Stool positive for C. difficile gene and toxin Continue p.o. vancomycin IV fluids as needed Continue liquid diet today Consider GI evaluation if continues to have bleeding per rectum Monitor CBC Slowly improving Will likely advance diet tomorrow if continues to improve (3) Recent urinary tract infection: Plan: Recent urine culture positive for Klebsiella variicola - discharged on a course of cefuroxime and changed to Macrobid Patient was treated for a total of 9 days - no further antibiotics indicated Current UA within normal limits (4) H/O: CVA (cerebrovascular accident): Plan: Aspirin, Plavix initially held Resumed Plavix today Continue statin Plan to resume aspirin tomorrow if no recurrence of bleeding (5) DM2 (diabetes mellitus, type 2): Plan: Hgb A1c 7.0 06/2025 Novolog per protocol while hospitalized Monitor blood glucose levels Other chronic conditions: H/O CVA S/O ICA stent Vascular Dementia Hypertension Hyperlipidemia Past tobacco use Continue home medications as able DVT Px: SCDs for now Admission and Anticipated Discharge Date Admission Date: July 23, 2025 Subjective Patient is seen and examined at bedside Poor historian, slow to respond No diarrhea, bleeding issues today per staff Seem to be tolerating current diet States having minimal abdominal discomfort Review of Systems Review of Systems: All systems reviewed & are unremarkable except as noted in Subjective Physical Exam Physical Exam: Physical Exam: Vitals signs as noted above General Appearance: Thin, frail, chronic ill-appearing, no apparent distress Head: normocephalic, Atraumatic Eyes: normal inspection, EOMI Neck: supple, Trachea midline Respiratory/Chest: Decreased breath sounds, CTA, No accessory muscle use Cardiovascular: S1, S2, + murmur Abdomen/GI:Soft, Non tender, Bowel sounds present Extremities/Musculoskeletal:normal inspection, no edema Neurologic/Psych: Alert, awake, oriented, follows simple commands, slow to respond, difficult to perform complete neurological exam Skin: normal color, warm Results & Data Results & Data Vital Signs (Past 12 Hours) Vital Signs Temp Pulse Resp BP Pulse Ox O2 Del Method 07/25/25 07:08 36.6 C 54 L 18 113/65 98 Room Air Laboratory Results Short CBC 07/25/25 Range/Units 05:24 WBC 8.89 (4.8-10.8) K/ul Hgb 12.2 L (14.0-18.0) g/dl Hct 36.7 L (42.0-52.0) % Plt Count 210 (130-400) K/uL BMP 07/25/25 05:24 Sodium 137 Potassium 3.6 Chloride 106 Carbon Dioxide 27 BUN 9 Creatinine 0.78 Glucose 84 Calcium 8.6
[2025-07-26 07:59] LABS: Hematocrit (blood only) 39.5 % (42.0-52.0); Hemoglobin 14.1 g/dl (14.0-18.0); Mean Corpuscular Hemoglobin 31.1 pg (25.0-34.0); Mean Corpuscular Volume 87.2 fL (80.0-100.0); Platelet Count 242 K/uL (130-400); RDW Standard Deviation 40.7 fL (36.4-46.3); Red Blood Count 4.53 M/uL (4.70-6.10); White Blood Count 7.84 K/ul (4.8-10.8)
[2025-07-26 08:13] VITALS: BP 144/83; PULSE 64; TEMP 97.5; O2SAT 96
[2025-07-26 08:14] LABS: Anion Gap 6.0 (3-11); Blood Urea Nitrogen 5.0 mg/dl (6-23); Calcium 8.8 mg/dl (8.6-10.3); Carbon Dioxide 28.0 mmol/L (21-32); Chloride 101.0 mmol/L (98-107); Creatinine Clr Calc Pharmacy 94.9 ml/min; Glucose 116.0 mg/dl (70-99(Fasting)); Magnesium 1.7 mg/dl (1.7-2.4); Potassium 3.5 mmol/L (3.5-5.1); Sodium 135.0 mmol/L (136-145)
--- NOTE | 2025-07-26 10:28 | Hospitalist Progress Note ---
Date of Service July 26, 2025 Assessment & Plan (1) C. difficile colitis: (2) Lower GI bleed: Plan: Patient presenting from home for evaluation of diarrhea. Patient recently admitted to [facility] 07/14 - 07/17 for Klebsiella UTI. Patient discharged on a course of cefuroxime. Patient also evaluated by neurology during previous admission and was started on Plavix in addition to ASA given the extend of his cerebrovascular disease. reports patient developed diarrhea shortly after returning home. Has been going multiple times per day. called PCPs office and was instructed to start probiotic. Due to ongoing symptoms, cefuroxime was changed to Macrobid. Patient was also evaluated in [facility] ED and was ultimately discharged home. C. difficile colitis Rectal bleed likely due to above --CT ABD: Moderate circumferential wall thickening of the transverse, descending, sigmoidcolon and rectum with pericolonic inflammatory change, compatible with colitis. The ascending colon is underdistended and not well visualized and may be unaffected.. No surrounding inflammatory change or gas. Small bowel to small bowel intussusception in the right lower quadrant which can be seen as a transient finding on CT. Please correlate if there is right lower quadrant pain at the level of the anterior superior iliac spine. No surrounding inflammatory change. -- Stool positive for C. difficile gene and toxin Continue p.o. vancomycin to complete the course IV fluids as needed Advance to regular diet today Rectal bleed resolved Monitor CBC, hemoglobin stable Plan to discharge home (3) Recent urinary tract infection: Plan: Recent urine culture positive for Klebsiella variicola - discharged on a course of cefuroxime and changed to Macrobid Patient was treated for a total of 9 days - no further antibiotics indicated Current UA within normal limits (4) H/O: CVA (cerebrovascular accident): Plan: Aspirin, Plavix initially held Resumed Plavix, aspirin Continue statin (5) DM2 (diabetes mellitus, type 2): Plan: Hgb A1c 7.0 06/2025 Novolog per protocol while hospitalized Monitor blood glucose levels Other chronic conditions: H/O CVA S/O ICA stent Vascular Dementia Hypertension Hyperlipidemia Past tobacco use Continue home medications as able DVT Px: SCDs for now Disposition Home Admission and Anticipated Discharge Date Admission Date: July 23, 2025 Subjective Patient is seen and examined at bedside Denies any nausea, vomiting, abdominal pain Tolerating diet Discussed with patient's over the phone No recurrence of bleeding issues Denies any chest pain, dyspnea Likely plan to be discharged home today if tolerates regular diet Review of Systems Review of Systems: All systems reviewed & are unremarkable except as noted in Subjective Physical Exam Physical Exam: Physical Exam: Vitals signs as noted above General Appearance: Thin, frail, chronic ill-appearing, no apparent distress Head: normocephalic, Atraumatic Eyes: normal inspection, EOMI Neck: supple, Trachea midline Respiratory/Chest: Decreased breath sounds, CTA, No accessory muscle use Cardiovascular: S1, S2, + murmur Abdomen/GI:Soft, Non tender, Bowel sounds present Extremities/Musculoskeletal:normal inspection, no edema Neurologic/Psych: Alert, awake, oriented, follows simple commands, slow to respond, difficult to perform complete neurological exam Skin: normal color, warm Results & Data Results & Data Vital Signs (Past 12 Hours) Vital Signs Temp Pulse Pulse Resp BP BP Pulse Ox 07/26/25 07:20 36.4 C L 64 18 144/83 H 96 07/26/25 06:38 59 L 138/70 07/25/25 23:36 36.7 C 55 L 18 160/70 H 98 O2 Del Method 07/26/25 07:20 Room Air 07/26/25 06:38 07/25/25 23:36 Room Air Laboratory Results Short CBC 07/26/25 Range/Units 07:40 WBC 7.84 (4.8-10.8) K/ul Hgb 14.1 (14.0-18.0) g/dl Hct 39.5 L (42.0-52.0) % Plt Count 242 (130-400) K/uL BMP 07/26/25 07:40 Sodium 135 L Potassium 3.5 Chloride 101 Carbon Dioxide 28 BUN 5 L Creatinine 0.64 Glucose 116 H Calcium 8.8
--- NOTE | 2025-07-26 10:48 | Discharge Summary ---
Date of Service July 26, 2025 Admission HPI Per Admitting Provider 79 year old male with PMH HLD, DM type II, right periventricular, right thalamic, and right occipital infarct ( 01/11/2025), left occipital, left frontal, left MCA, and right frontal infarct ( 07/2022), LICA stenosis s/p stent, left vertebral artery occlusion, right vertebral artery stenoses, left subclavian artery stenoses, bilateral carotid atherosclerosis, vascular dementia, and other problems listed below who presents to the ED for evaluation of diarrhea. Patient recently admitted to [facility] 07/14 - 07/17 for Klebsiella UTI. Patient discharged on a course of cefuroxime. Patient also evaluated by neurology during previous admission and was started on Plavix in addition to ASA given the extend of his cerebrovascular disease. History is limited from the patient due to underlying dementia. reports patient developed diarrhea shortly after returning home. Has been going multiple times per day. called PCPs office and was instructed to start probiotic. Due to ongoing symptoms, cefuroxime was changed to Macrobid yesterday. Developed some BRBPR and maroon colored stools. Was seen at [facility] ER yesterday and was ultimately discharged home. Appetite has been poor however no vomiting reported. Denies fever or rigors. In the ED, patient is hemodynamically stable. Labs show WBC 13K, hgb 15.9. + C. Diff. CT abd/pelvis shows Moderate circumferential wall thickening of the transverse, descending, sigmoid colon and rectum with pericolonic inflammatory change, compatible with colitis. Patient was given IVF, IV Protonix, PO Vanco. Admission Exam Per Admitting Provider Constitutional: + ill appearing (chronically); no acute distress Respiratory: normal respiratory effort, lungs clear to auscultation Cardiovascular: Rate/Rhythm: regular rate and regular rhythm Vessels: normal peripheral pulses Extremities: no edema Gastrointestinal (Abdomen): Percussion/Palpation: abdomen soft; abdomen nontender Skin: no rashes, warm and dry Psychiatric: sleeping, arouses to verbal stimuli but falls back to sleep quickly, oriented to self only Principal Diagnosis C. difficile colitis Discharge Data Allergies Allergy/AdvReac Type Severity Reaction Status Date / Time No Known Allergies Allergy Verified 01/09/25 14:31 Consultations 07/23/25 19:14 ED Decision to Admit Stat Procedures Performed Laboratory Results WBC 7.84 K/ul (4.8-10.8) 07/26/25 07:40 RBC 4.53 M/uL (4.70-6.10) L 07/26/25 07:40 Hgb 14.1 g/dl (14.0-18.0) 07/26/25 07:40 Hct 39.5 % (42.0-52.0) L 07/26/25 07:40 MCV 87.2 fL (80.0-100.0) 07/26/25 07:40 MCH 31.1 pg (25.0-34.0) 07/26/25 07:40 MCHC 35.7 g/dL (32.0-36.0) 07/26/25 07:40 RDW Std Deviation 40.7 fL (36.4-46.3) 07/26/25 07:40 RDW Coeff of Nikita 12.8 % (11.5-14.5) 07/26/25 07:40 Plt Count 242 K/uL (130-400) 07/26/25 07:40 MPV 8.6 fL (9.4-12.4) L 07/26/25 07:40 Immature Gran % (Auto) 0.5 % 07/23/25 17:21 Neut % (Auto) 76.7 % 07/23/25 17:21 Lymph % (Auto) 8.9 % 07/23/25 17:21 [place] % (Auto) 13.4 % 07/23/25 17:21 Eos % (Auto) 0.2 % 07/23/25 17:21 Baso % (Auto) 0.3 % 07/23/25 17:21 Neut # (Auto) 10.15 K/uL (1.40-6.50) H 07/23/25 17:21 Lymph # (Auto) 1.18 K/uL (1.20-3.40) L 07/23/25 17:21 [place] # (Auto) 1.78 K/uL (0.11-0.59) H 07/23/25 17:21 Eos # (Auto) 0.03 K/uL (0.00-0.50) 07/23/25 17:21 Baso # (Auto) 0.04 K/uL (0.00-0.20) 07/23/25 17:21 Immature Gran # (Auto) 0.07 K/uL (0.01-0.20) 07/23/25 17:21 PT 10.7 Seconds (9.0-12.0) 07/23/25 17:21 INR 1.0 (0.9-1.1) 07/23/25 17:21 APTT 28 Seconds (21-31) 07/23/25 17:21 PTT Ratio 1.0 07/23/25 17:21 Sodium 135 mmol/L (136-145) L 07/26/25 07:40 Potassium 3.5 mmol/L (3.5-5.1) 07/26/25 07:40 Chloride 101 mmol/L (98-107) 07/26/25 07:40 Carbon Dioxide 28 mmol/L (21-32) 07/26/25 07:40 Anion Gap 6 (3-11) 07/26/25 07:40 BUN 5 mg/dl (6-23) L 07/26/25 07:40 Creatinine 0.64 mg/dl (0.6-1.4) 07/26/25 07:40 Est Cr Clr Drug Dosing 94.9 ml/min 07/26/25 07:40 eGFR 97.50 07/26/25 07:40 BUN/Creatinine Ratio 7.8 (10-20) L 07/26/25 07:40 Glucose 116 mg/dl (70-99(Fasting)) H 07/26/25 07:40 POC Glucose 116 mg/dl (70-99) H 07/26/25 07:21 Calcium 8.8 mg/dl (8.6-10.3) 07/26/25 07:40 Magnesium 1.7 mg/dl (1.7-2.4) 07/26/25 07:40 Total Bilirubin 0.8 mg/dl (0.2-1.0) 07/23/25 17:21 AST 16 U/L (13-39) 07/23/25 17:21 ALT 14 U/L (7-52) 07/23/25 17:21 Alkaline Phosphatase 48 U/L (34-104) 07/23/25 17:21 Total Protein 7.1 gm/dl (6.0-8.3) 07/23/25 17:21 Albumin 3.8 gm/dl (3.4-5.0) 07/23/25 17:21 Globulin 3.3 gm/dl (2.5-4.0) 07/23/25 17:21 Albumin/Globulin Ratio 1.2 (0.9-2) 07/23/25 17:21 Lipase 7 U/L (11-82) L 07/23/25 17:21 Urine Color Dark Yellow 07/24/25 04:30 Urine Appearance Clear (Clear) 07/24/25 04:30 Urine pH 5.0 (4.5-7.5) 07/24/25 04:30 Ur Specific [place] > 1.045 (1.000-1.030) H 07/24/25 04:30 Urine Protein Trace (Negative) H 07/24/25 04:30 Urine Glucose (UA) Negative (Negative) 07/24/25 04:30 Urine Ketones Trace (Negative) H 07/24/25 04:30 Urine Blood Negative (Negative) 07/24/25 04:30 Urine Nitrite Negative (Negative) 07/24/25 04:30 Urine Bilirubin Negative (Negative) 07/24/25 04:30 Urine Urobilinogen Negative (Negative) 07/24/25 04:30 Ur Leukocyte Esterase Negative (Negative) 07/24/25 04:30 Urine WBC (Auto) 0-5 /hpf (0-5) 07/24/25 04:30 Urine RBC (Auto) 0-2 /hpf (0-2) 07/24/25 04:30 U Hyaline Cast (Auto) 0-2 /lpf (0-2) 07/24/25 04:30 U Epithel Cells (Auto) 0-2 /hpf (0-2) 07/24/25 04:30 Urine Bacteria (Auto) None Seen (None Seen) 07/24/25 04:30 Urine Comment 07/24/25 04:30 Stl C. cayetanensis PCR Not Detected (NotDetected) 07/23/25 17:00 Stool Rotavirus A PCR Not Detected (NotDetected) 07/23/25 17:00 Stl Adenov F 40/41 PCR Not Detected (NotDetected) 07/23/25 17:00 Stool Astrovirus (PCR) Not Detected (NotDetected) 07/23/25 17:00 Stool Campylobacter PCR Not Detected (NotDetected) 07/23/25 17:00 Stl C. diff Tox B Gene Positive Cdiff Gene (Neg) A 07/23/25 17:00 Stl C.difficile Tox A&B Positive Cdiff Toxin (Negative) A* 07/23/25 17:00 Stl C. diff 027-NAP1-BI NEGATIVE 07/23/25 17:00 Stool Cryptosporidium PCR Not Detected (NotDetected) 07/23/25 17:00 Stl E.coli Shiga Tox PCR Not Detected (NotDetected) 07/23/25 17:00 Stl Enterotoxigenic E PCR Not Detected (NotDetected) 07/23/25 17:00 Stool EPEC (PCR) Not Detected (NotDetected) 07/23/25 17:00 Stool EAEC (PCR) Not Detected (NotDetected) 07/23/25 17:00 Stl E. histolytica PCR Not Detected (NotDetected) 07/23/25 17:00 Stool Giardia Lamblia PCR Not Detected (NotDetected) 07/23/25 17:00 Stool Salmonella PCR Not Detected (NotDetected) 07/23/25 17:00 Stool Sapovirus (PCR) Not Detected (NotDetected) 07/23/25 17:00 Stl P. shigelloides PCR Not Detected (NotDetected) 07/23/25 17:00 Stl Shigella/EIEC PCR Not Detected (NotDetected) 07/23/25 17:00 St Y.enterocolitica PCR Not Detected (NotDetected) 07/23/25 17:00 Stool Vibrio (PCR) Not Detected (NotDetected) 07/23/25 17:00 Stl Vibrio cholerae PCR Not Detected (NotDetected) 07/23/25 17:00 Stl Norovirus GI/GII PCR Not Detected (NotDetected) 07/23/25 17:00 Blood Type A Negative 07/23/25 20:56 Antibody Screen NEGATIVE 07/23/25 20:56 Impressions Abdomen/Pelvis CT 07/23/25 16:33 EXAMINATION: Abdomen and pelvis CT with CLINICAL HISTORY: Per patient , GI bleeding bright red blood, recent hospitalization for UTI. Weakness. PRIORS: Non 01/25/2025 TECHNIQUE: Contiguous axial images were obtained through the abdomen and pelvis with the use of intravenous contrast. Sagittal and coronal reformations are supplied. FINDINGS: Mild hypoventilatory changes of the lung bases. Arms and middle ring on the abdomen in the [id number] create significant beam hardening artifact and diminished image quality. The liver, gallbladder, portal vein, pancreas, spleen, stomach, adrenals, and IVC are morphologically unremarkable. Advanced atherosclerotic disease of the abdominal aorta. The kidneys enhance symmetrically. No hydronephrosis or obstructing calculus. Circumferential wall thickening and inflammatory change is present involving the transverse, descending and sigmoid colon with engorgement of the perforating vasculature and mild regional inflammatory change. These findings are most pronounced involving the sigmoid colon. Allowing for under distention, the ascending colon may be unaffected. No ascites, extraluminal gas or adenopathy. A focal small bowel to small bowel intussusception is present in the right lower quadrant, image 58, series 2 Urinary bladder is underdistended with moderate circumferential wall thickening. Prostate is moderately enlarged. No extraluminal gas, dilated loops of bowel or adenopathy. Moderate to advanced degenerative change of the lumbar spine. IMPRESSION: 1. Moderate circumferential wall thickening of the transverse, descending, sigmoidcolon and rectum with pericolonic inflammatory change, compatible with colitis. The ascending colon is underdistended and not well visualized and may be unaffected.. No surrounding inflammatory change or gas. 2. Small bowel to small bowel intussusception in the right lower quadrant which can be seen as a transient finding on CT. Please correlate if there is right lower quadrant pain at the level of the anterior superior iliac spine. No surrounding inflammatory change. 3. Moderate enlargement of the prostate with circumferential urinary bladder wall thickening which may impart be due to under distention. Acute cystitis is also on the differential diagnosis. ACT 112: Positive. There are findings on this examination that require communication between the performing entity and the patient following Patient Test Result Information Act ([place] ACT 112) guidelines. Electronically signed by Deisy Schneider 07-23-2025 7:01 PM Ordered Studies 07/23/25 16:33 CT abd pelvis IV con only Stat Hospital Course (1) C. difficile colitis: (2) Lower GI bleed: Patient presenting from home for evaluation of diarrhea. Patient recently admitted to [facility] 07/14 - 07/17 for Klebsiella UTI. Patient discharged on a course of cefuroxime. Patient also evaluated by neurology during previous admission and was started on Plavix in addition to ASA given the extend of his cerebrovascular disease. reports patient developed diarrhea shortly after returning home. Has been going multiple times per day. called PCPs office and was instructed to start probiotic. Due to ongoing symptoms, cefuroxime was changed to Macrobid. Patient was also evaluated in [facility] ED and was ultimately discharged home. C. difficile colitis Rectal bleed likely due to above --CT ABD: Moderate circumferential wall thickening of the transverse, descending, sigmoidcolon and rectum with pericolonic inflammatory change, compatible with colitis. The ascending colon is underdistended and not well visualized and may be unaffected.. No surrounding inflammatory change or gas. Small bowel to small bowel intussusception in the right lower quadrant which can be seen as a transient finding on CT. Please correlate if there is right lower quadrant pain at the level of the anterior superior iliac spine. No surrounding inflammatory change. -- Stool positive for C. difficile gene and toxin Continue p.o. vancomycin to complete the course IV fluids as needed Advance to regular diet today Rectal bleed resolved Monitor CBC, hemoglobin stable Plan to discharge home (3) Recent urinary tract infection: Recent urine culture positive for Klebsiella variicola - discharged on a course of cefuroxime and changed to Macrobid Patient was treated for a total of 9 days - no further antibiotics indicated Current UA within normal limits (4) H/O: CVA (cerebrovascular accident): Aspirin, Plavix initially held Resumed Plavix, aspirin Continue statin (5) DM2 (diabetes mellitus, type 2): Hgb A1c 7.0 06/2025 Novolog per protocol while hospitalized Monitor blood glucose levels Other chronic conditions: H/O CVA S/O ICA stent Vascular Dementia Hypertension Hyperlipidemia Past tobacco use Continue home medications as able DVT Px: SCDs for now Disposition Home Total Time Total Time Spent Total Time Spent (In Minutes): 53 minutes Discharge Plan Discharge Items Patient Disposition: Home - Self-Care Reason For Visit: C. DIFF COLITIS Discharge Diagnosis: C. difficile colitis Condition on Discharge: Fair Activity: Resume your previous activity Non-emergency contact: Primary Care Provider Call non-emergency contact if: you have any medication questions, your symptoms worsen, your pain is concerning for you and you have a fever Follow-up/Referrals: Hanley,Gera S., DO [Primary Care Provider] - Diet: Carb Consistent or DM2 Addtl Attending Provider Instructions: -- Follow-up with your primary care physician Dr. Gera Hanley in 1 week --Complete the oral vancomycin course as prescribed Seek immediate medical attention if your symptoms reoccur or worsen Please review medication list provided on discharge for any medication changes as instructed. Please call if you have any questions or problems. You can reach a [facility] hospitalist on duty at [facility] 24 hours a day by calling [phone] Pending Studies at Discharge: No Stand-Alone Forms: My [facility], Smoking Cessation Medications and DC Order Prescriptions: New vancomycin 125 mg capsule 125 mg PO QID 8 Days Qty: 32 0RF Continued insulin degludec [Tresiba FlexTouch U-100] 100 unit/mL (3 mL) Insulin Pen 23 unit SUBCUT HS cholecalciferol (vitamin D3) [Vitamin D3] 25 mcg (1,000 unit) Capsule 25 mcg PO QAM aspirin [Ecotrin Low Strength] 81 mg tablet,delayed release (DR/EC) 81 mg PO QAM clopidogrel 75 mg Tablet 75 mg PO QAM Qty: 30 0RF atorvastatin 80 mg tablet 80 mg PO HS Qty: 30 0RF magnesium 200 mg Tablet 200 mg PO DAILY coenzyme Q10 [Co Q-10] 100 mg Capsule 100 mg PO DAILY insulin aspart U-100 [Novolog FlexPen U-100 Insulin] 100 unit/mL (3 mL) Insulin Pen 1 sliding scale dose SUBCUT USEASDIRECTD Discontinued nitrofurantoin monohyd/m-cryst 100 mg capsule 100 mg PO BID Rx Instructions: ORDERED 07/22/25 TO TAKE FOR 7 DAYS Discharge Orders: Discharge Order (Routine); Ordered 07/26/25 Ordered By: Luis Manuel Lima Admission Data Admit Date/Time: 07/23/25 20:14 Attending Provider: Luis Manuel Lima Admit Provider: Roderick Solares Primary Care Provider: Gera Hanley Other Providers: Roderick Solares
== END 2025-07-26 14:06 | disposition home health service (06) | DRG 372 ==
LOC: ED 16:14 → 3E 20:14

== ENCOUNTER 2025-10-12 12:54 | Inpatient (IN) ==
--- NOTE | 2025-10-12 13:34 | Emergency Department Note ---
Impression & Plan Weakness, C. difficile colitis ED Provider Note CHIEF COMPLAINT: Illness HISTORY OF PRESENTING ILLNESS: The patient is a 79-year-old male with past medical history of CVA, left-sided deficits who arrives to the emergency department for evaluation of weakness, and diarrhea. Patient has recent history of C. difficile that occurred after admission for IV antibiotics for urinary tract infection. The states that she has been having a difficult time getting fluids into the patient, and he is having persistent diarrhea. The patient denies complaints, he is afebrile. is concerned he is dehydrated. REVIEW OF SYSTEMS: See HPI for pertinent positives and pertinent negatives. ALLERGIES: See below MEDICATIONS: See below PAST MEDICAL HISTORY: See below PHYSICAL EXAM: VITALS: Vitals are noted on the nurse's note and reviewed by myself. Vital signs stable. GENERAL: 79-year-old male, in no acute distress, nondiaphoretic, well-developed well-nourished. SKIN: The skin was without rashes, erythema, edema, or bruising. HEAD: Normocephalic atraumatic. NECK: Supple without nuchal rigidity. No lymphadenopathy. Cervical spine is nontender. No JVD. HEART: Regular rate and rhythm without murmurs gallops or rubs. LUNGS: Clear to auscultation bilaterally without wheezes, rales or rhonchi. No retractions or accessory muscle use. ABDOMEN: Positive bowel sounds x 4. Soft, nontender, without masses or organomegaly. Miller sign negative. No guarding or rebound tenderness. MUSCULOSKELETAL: Left upper extremity, and left lower extremity strength 3/5, due to previous CVA deficit. Right upper extremity, right lower extremity strength 5/5. NEURO: Patient was alert and oriented to person place and time. No focal neurological deficits. DIFFERENTIAL DIAGNOSIS: Infection, dehydration, metabolic abnormality, hypo/hyperglycemia, electrolyte disturbance, anemia, hypoxia, cardiac sources, intracerebral event, toxicologic, neurologic, as well as other pathologies. ED COURSE AND MEDICAL DECISION MAKING: HISTORY FROM INDEPENDENT HISTORIAN: at bedside serving as primary historian. MEDICATIONS GIVEN: 1 L NSS bolus MONITOR: Continuous lunchroom monitor: Order was placed for continuous lunchroom monitor. Patient was placed on the lunchroom monitor and continuous pulse ox. Patient was noted to be in normal sinus rhythm at an initial rate of 72 bpm per my interpretation. EKG: EKG was interpreted by myself as sinus rhythm, with bifascicular block. Previous EKG from July 2025 right bundle branch block now replaced the incomplete right bundle branch block on previous imaging. INTERPRETATION OF LABS: I interpreted the labs with full lab results as below in the lab section of this note. Pertinent lab results discussed in the MDM section below. INTERPRETATION OF IMAGING: Imaging studies were interpreted by myself and read by radiology as per the imaging section of this note. MDM SUMMARY: The patient is a pleasant, 79-year-old male who arrives to the emergency department for evaluation of the above-stated complaint. Saline lock was established, lab work was obtained. CBC shows no leukocytosis, no anemia. CMP is unremarkable. TSH within normal limits. Urinalysis shows trace ketones, trace leukocyte esterase. Stool culture obtained, showing positive C. difficile gene. Upper respiratory viral panel negative. EKG interpreted as noted above. Chest x-ray imaging per my interpretation shows no acute cardiopulmonary process. Patient was provided IV fluids. I spoke with the patient, as well as his regarding the persistent diarrhea, positive C. difficile gene, and patient's difficulty obtaining oral fluids. Patient will benefit from hospital admission, for further evaluation, IV hydration, and treatment of diarrhea. The patient was admitted to the [facility], please refer to their documentation for further patient workup and care. DIAGNOSIS: C. difficile, weakness The chart was completed utilizing [employer] Speech voice recognition software. Grammatical errors, random word insertions, pronoun errors, and incomplete sentences are an occasional consequence of this system due to software limitations, ambient noise, and hardware issues. Any formal questions or concerns about the content, text, or information contained within the body of this dictation should be directly addressed to the provider for clarification. Past Med/Surg History Problem List (Updated 10/21/25 @ 20:20 by ANNEMARIE Yeager) Hyperlipidemia Elevated troponin I level (Acute) Fever (Acute) AMS (altered mental status) (Acute) Diarrhea (Acute) C. difficile colitis (Acute) Recent urinary tract infection C. difficile colitis H/O: CVA (cerebrovascular accident) Vascular disease (Acute) Weakness (Acute) Aphasia (Acute) Acute encephalopathy (Acute) Abnormal CT scan of lung Vascular dementia (Acute) Aspiration pneumonia (Acute) Aspiration pneumonia Altered mental status (Acute) Scalp laceration Frequent falls (Acute) DM2 (diabetes mellitus, type 2) Vertebral artery occlusion HTN (hypertension) Carotid stenosis, symptomatic, with infarction Acute CVA (cerebrovascular accident) Memory impairment Transient cerebral ischemia (Acute) Blood glucose elevated (Acute) Medical History LGI bleed Lower GI bleed Encounter for assessment of healthcare decision-making capacity Palliative care by specialist Closed head injury Stroke TIA (transient ischemic attack) Acute confusion Surgical History No pertinent past surgical history Family History Father , He in his 70s of an MD Primary Parkinson's disease Myocardial infarction Mother , age 101 No problems noted. Social History Smoking Status: Former smoker Tobacco Type: Cigarettes Cigarettes Per Day: Pt unable to answer; Smoking End Date: Patient unable to answer.; Second Hand Exposure: No; Do You Dip or Chew Tobacco: No; Tobacco Cessation Education Requested by Patient: No Hx Alcohol Use: Yes Alcohol type: beer Hx Substance Use: No Preferred Language: Malagasy Communication Ability: Impaired Beef Grinder Required: No Beliefs That Will Affect Care: None Current Living Situation: Spouse Other Information That Helps Us Care for You: No Feels Safe at Home: Yes Safety Concerns: Feels Safe At This Time Assistive Devices: Hospital Bed, Mechanical Lift, Slide Board, Walker and Wheelchair Allergies Allergies Allergy/AdvReac Type Severity Reaction Status Date / Time No Known Allergies Allergy Verified 01/09/25 14:31 Home Meds Home Medications Medication Instructions Recorded Confirmed aspirin 81 mg tablet,delayed 81 mg PO DAILY 08/14/25 10/12/25 release atorvastatin 80 mg tablet 80 mg PO DAILY 08/14/25 10/12/25 cholecalciferol (vitamin D3) 25 25 mcg PO DAILY 08/14/25 10/12/25 mcg (1,000 unit) capsule clopidogrel 75 mg tablet (Plavix) 75 mg PO DAILY 08/14/25 10/12/25 insulin degludec 100 unit/mL (3 23 unit subcut HS 08/14/25 10/12/25 mL) subcutaneous pen Previous Rx's Medication Instructions Recorded vancomycin 125 mg capsule 125 mg PO DIRECTED #68 caps 10/18/25 Results & Data (ED) Vital Signs Vital Signs - 24 hr 10/12/25 13:04 Temperature 36.2 C L Temperature Source Temporal Artery Scan Pulse Rate 72 Respiratory Rate 20 Respiratory Effort / Characteristics Non-Labored Spontaneous Respiratory Depth Normal Respiratory Pattern Regular Blood Pressure 122/86 Blood Pressure Mean 98 Blood Pressure Position Sitting Pulse Oximetry 98 Oxygen Delivery Method Room Air Sepsis Recent Fever Within 48 Hours No Sepsis New/Unexplained Change in Mental Status N/A Sepsis Action Taken by Nursing No Action Required Home Medications Current Medication List: was personally reviewed by me Laboratory Data Attestation: I reviewed the patient's lab results. 10/18/25 05:59 10/18/25 05:59 Lab Results 10/12/25 10/12/25 Range/Units 13:21 16:00 WBC 8.91 (4.8-10.8) K/ul RBC 4.45 L (4.70-6.10) M/uL Hgb 14.3 (14.0-18.0) g/dL Hct 40.7 L (42.0-52.0) % MCV 91.5 (80.0-100.0) fL MCH 32.1 (25.0-34.0) pg MCHC 35.1 (32.0-36.0) g/dL RDW Std Deviation 46.1 (36.4-46.3) fL RDW Coeff of Nikita 13.5 (11.5-14.5) % Plt Count 197 (130-400) K/uL MPV 9.2 L (9.4-12.4) fL Immature Gran % (Auto) 0.3 % Neut % (Auto) 65.5 % Lymph % (Auto) 24.8 % [place] % (Auto) 8.4 % Eos % (Auto) 0.7 % Baso % (Auto) 0.3 % Neut # (Auto) 5.83 (1.40-6.50) K/uL Lymph # (Auto) 2.21 (1.20-3.40) K/uL [place] # (Auto) 0.75 H (0.11-0.59) K/uL Eos # (Auto) 0.06 (0.00-0.50) K/uL Baso # (Auto) 0.03 (0.00-0.20) K/uL Immature Gran # (Auto) 0.03 (0.01-0.20) K/uL Sodium 136 (136-145) mmol/L Potassium 4.2 (3.5-5.1) mmol/L Chloride 102 (98-107) mmol/L Carbon Dioxide 28 (21-32) mmol/L Anion Gap 6 (3-11) BUN 15 (6-23) mg/dl Creatinine 0.67 (0.6-1.4) mg/dl Est Cr Clr Drug Dosing Not Reportable eGFR 96.16 BUN/Creatinine Ratio 22.4 H (10-20) Glucose 131 H (70-99(Fasting)) mg/dl Calcium 9.4 (8.6-10.3) mg/dl Total Bilirubin 0.9 (0.2-1.0) mg/dl AST 17 (13-39) U/L ALT 16 (7-52) U/L Alkaline Phosphatase 47 (34-104) U/L Total Protein 7.1 (6.0-8.3) gm/dl Albumin 4.0 (3.4-5.0) gm/dl Globulin 3.1 (2.5-4.0) gm/dl Albumin/Globulin Ratio 1.3 (0.9-2) TSH 0.678 (0.300-4.500) uIu/ml Urine Color Yellow Urine Appearance Clear (Clear) Urine pH 5.0 (4.5-7.5) Ur Specific [place] 1.027 (1.000-1.030) Urine Protein Negative (Negative) Urine Glucose (UA) Negative (Negative) Urine Ketones Trace H (Negative) Urine Blood Negative (Negative) Urine Nitrite Negative (Negative) Urine Bilirubin Negative (Negative) Urine Urobilinogen Negative (Negative) Ur Leukocyte Esterase Trace H (Negative) Urine WBC (Auto) 0-5 (0-5) /hpf Urine RBC (Auto) 0-2 (0-2) /hpf U Hyaline Cast (Auto) 0-2 (0-2) /lpf U Epithel Cells (Auto) 0-2 (0-2) /hpf Urine Bacteria (Auto) None Seen (None Seen) Calcium Oxalate Crystal Present A (None Prsent) Talc Crystals Present H (None Prsent) Urine Mucus Present A (None Prsent) Urine Comment Stl C. cayetanensis PCR Not Detected (NotDetected) Stool Rotavirus A PCR Not Detected (NotDetected) Stl Adenov F 40/41 PCR Not Detected (NotDetected) Stool Astrovirus (PCR) Not Detected (NotDetected) Stool Campylobacter PCR Not Detected (NotDetected) Stl C. diff Tox B Gene Positive Cdiff Gene A (Neg) Stl C.difficile Tox A&B Negative Cdiff Toxin (Negative) Stl C. diff 027-NAP1-[id number] NEGATIVE Stool Cryptosporidium PCR Not Detected (NotDetected) Stl E.coli Shiga Tox PCR Not Detected (NotDetected) Stl Enterotoxigenic E PCR Not Detected (NotDetected) Stool EPEC (PCR) Not Detected (NotDetected) Stool EAEC (PCR) Not Detected (NotDetected) Stl E. histolytica PCR Not Detected (NotDetected) Stool Giardia Lamblia PCR Not Detected (NotDetected) Stool Salmonella PCR Not Detected (NotDetected) Stool Sapovirus (PCR) Not Detected (NotDetected) Stl P. shigelloides PCR Not Detected (NotDetected) Stl Shigella/EIEC PCR Not Detected (NotDetected) St Y.enterocolitica PCR Not Detected (NotDetected) Stool Vibrio (PCR) Not Detected (NotDetected) Stl Vibrio cholerae PCR Not Detected (NotDetected) Stl Norovirus GI/GII PCR Not Detected (NotDetected) SARS-CoV-2 (PCR) NEGATIVE (Negative) Influenza Type A (PCR) Negative (Neg) Influenza Type B (PCR) Negative (Neg) RSV (RT-PCR) Negative (Neg) Administered Medications Discontinued Medications Aspirin (Aspirin 81 Mg Ectab) 81 mg PO DAILY PAO Stop: 11/12/25 08:59 Last Admin: 10/18/25 07:44 Dose: 81 mg Documented By: Admin: 10/17/25 07:47 Dose: 81 mg Documented By: Admin: 10/16/25 08:47 Dose: 81 mg Documented By: beata Admin: 10/15/25 08:41 Dose: 81 mg Documented By: Admin: 10/14/25 09:48 Dose: 81 mg Documented By: Admin: 10/13/25 08:59 Dose: 81 mg Documented By: ALVARO Atorvastatin Calcium (Atorvastatin 40 Mg Tab) 80 mg PO DAILY PAO Stop: 11/12/25 08:59 Last Admin: 10/18/25 07:45 Dose: 80 mg Documented By: Admin: 10/17/25 07:46 Dose: 80 mg Documented By: Admin: 10/16/25 08:47 Dose: 80 mg Documented By: beata Admin: 10/15/25 08:41 Dose: 80 mg Documented By: Admin: 10/14/25 09:48 Dose: 80 mg Documented By: Admin: 10/13/25 08:59 Dose: 80 mg Documented By: ALVARO Clopidogrel Bisulfate (Clopidogrel Bisulfate 75 Mg Tab) 75 mg PO DAILY PAO Stop: 11/12/25 08:59 Last Admin: 10/18/25 07:45 Dose: 75 mg Documented By: Admin: 10/17/25 07:46 Dose: 75 mg Documented By: Admin: 10/16/25 08:48 Dose: 75 mg Documented By: beata Admin: 10/15/25 08:41 Dose: 75 mg Documented By: Admin: 10/14/25 09:48 Dose: 75 mg Documented By: Admin: 10/13/25 08:59 Dose: 75 mg Documented By: ALVARO Enoxaparin Sodium (Enoxaparin Inj 40 Mg/0.4 Ml Syr) 40 mg SQ QAM PAO Stop: 11/12/25 15:59 Last Admin: 10/18/25 07:44 Dose: 40 mg Documented By: Admin: 10/17/25 07:46 Dose: 40 mg Documented By: Admin: 10/16/25 08:48 Dose: 40 mg Documented By: beata Admin: 10/15/25 08:44 Dose: 40 mg Documented By: Admin: 10/14/25 09:48 Dose: 40 mg Documented By: Admin: 10/13/25 16:45 Dose: 40 mg Documented By: ALVARO Fidaxomicin (Fidaxomicin 200 Mg Tab) 200 mg PO BID PAO Stop: 10/27/25 12:44 Last Admin: 10/18/25 07:44 Dose: 200 mg Documented By: Admin: 10/17/25 21:28 Dose: 200 mg Documented By: Admin: 10/17/25 12:58 Dose: 200 mg Documented By: DAYRON Sodium Chloride (Nss) 500 mls @ 999 mls/hr IV .Q31M ONE Stop: 10/12/25 14:11 Last Infusion: 10/12/25 15:22 Dose: Infused Documented By: Admin: 10/12/25 13:46 Dose: 999 mls/hr Documented By: KILEY Sodium Chloride (Nss) 500 mls @ 999 mls/hr IV .Q31M ONE Stop: 10/12/25 16:06 Last Infusion: 10/12/25 17:21 Dose: Infused Documented By: Admin: 10/12/25 16:05 Dose: 999 mls/hr Documented By: NATASHA Sodium Chloride (Nss) 1,000 mls @ 80 mls/hr [id number] Stop: 10/13/25 07:50 Last Infusion: 10/13/25 08:58 Dose: Infused Documented By: Admin: 10/12/25 19:38 Dose: 80 mls/hr Documented By: ORION Insulin Aspart (Insulin Aspart Per Unit Charge) 0 units SC ACHS PAO Stop: 11/11/25 20:59 Last Admin: 10/18/25 13:35 Dose: Not Given Documented By: Admin: 10/18/25 08:45 Dose: Not Given Documented By: Admin: 10/17/25 21:55 Dose: Not Given Documented By: YANIV Co-signed By: QAMAR Admin: 10/17/25 17:15 Dose: 3 units Documented By: DAYRON Co-signed By: IRMA Admin: 10/17/25 12:35 Dose: 2 units Documented By: DAYRON Co-signed By: DIANE Admin: 10/17/25 08:43 Dose: Not Given Documented By: Admin: 10/16/25 21:03 Dose: Not Given Documented By: YANIV Co-signed By: RE Admin: 10/16/25 17:49 Dose: 2 units Documented By: beata Co-signed By: FLAKO Admin: 10/16/25 13:19 Dose: 2 units Documented By: FLAKO Co-signed By: beata Admin: 10/16/25 08:47 Dose: 3 units Documented By: beata Co-signed By: FLAKO Admin: 10/15/25 21:21 Dose: Not Given Documented By: wnt Admin: 10/15/25 17:24 Dose: 2 units Documented By: RRKingston Co-signed By: MK Admin: 10/15/25 12:22 Dose: 2 units Documented By: RRD Co-signed By: tca Admin: 10/15/25 08:47 Dose: 2 units Documented By: RRD Co-signed By: KS Admin: 10/14/25 21:11 Dose: Not Given Documented By: wnt Admin: 10/14/25 17:33 Dose: Not Given Documented By: HRB Co-signed By: beata Admin: 10/14/25 12:52 Dose: 4 units Documented By: HRB Co-signed By: beata Admin: 10/14/25 09:21 Dose: Not Given Documented By: HRB Co-signed By: beata Admin: 10/13/25 21:00 Dose: Not Given Documented By: ATS Co-signed By: JANET Admin: 10/13/25 17:17 Dose: 3 units Documented By: ALVARO Co-signed By: IRMA Admin: 10/13/25 13:14 Dose: 3 units Documented By: ALVARO Co-signed By: alban Admin: 10/13/25 09:08 Dose: Not Given Documented By: Admin: 10/12/25 20:30 Dose: Not Given Documented By: JANET Vitamin D (Cholecalciferol 25 Mcg (1000 Units) Tab) 25 mcg PO DAILY PAO Stop: 11/12/25 08:59 Last Admin: 10/18/25 07:45 Dose: 25 mcg Documented By: Admin: 10/17/25 07:46 Dose: 25 mcg Documented By: Admin: 10/16/25 08:48 Dose: 25 mcg Documented By: beata Admin: 10/15/25 08:41 Dose: 25 mcg Documented By: Admin: 10/14/25 09:48 Dose: 25 mcg Documented By: B Admin: 10/13/25 08:59 Dose: 25 mcg Documented By: ALVARO Imaging Data Attestation: I personally reviewed and interpreted this imaging study as follows: Discharge Plan Visit Data Chief Complaint: Weakness Stated Complaint: WEAKNESS ED Provider: Clayton Rios ED Midlevel Provider: Leila Aguayo Discharge Problem: Weakness, C. difficile colitis Patient Disposition: Admitted As Inpatient Condition: Fair Discharge Instructions Interventions: ED Discharge Assessment Last Done: 10/12/25 19:21
[2025-10-12] MEDS: SODIUM CHLORIDE 0.9% 500 ML IV ONE ×2 (13:46→16:05)
[2025-10-12 13:47] LABS: Hematocrit (blood only) 40.7 % (42.0-52.0); Hemoglobin 14.3 g/dL (14.0-18.0); Immature Granulocytes # (auto) 0.03 K/uL (0.01-0.20); Immature Granulocytes % (auto) 0.3 %; Mean Corpuscular Hemoglobin 32.1 pg (25.0-34.0); Mean Corpuscular Volume 91.5 fL (80.0-100.0); Platelet Count 197 K/uL (130-400); RDW Standard Deviation 46.1 fL (36.4-46.3); Red Blood Count 4.45 M/uL (4.70-6.10); White Blood Count 8.91 K/ul (4.8-10.8)
[2025-10-12] MEDS ORDERED: SODIUM CHLORIDE 0.9% 1,000 ML IV ONE (14:01)
[2025-10-12 14:06] LABS: Alanine Aminotransferase 16 U/L (7-52); Albumin Globulin Ratio 1.3 (0.9-2); Albumin Level 4.0 gm/dl (3.4-5.0); Alkaline Phosphatase 47 U/L (34-104); Anion Gap 6 (3-11); Bilirubin,Total 0.9 mg/dl (0.2-1.0); Blood Urea Nitrogen 15 mg/dl (6-23); Calcium 9.4 mg/dl (8.6-10.3); Carbon Dioxide 28 mmol/L (21-32); Chloride 102 mmol/L (98-107); Globulin 3.1 gm/dl (2.5-4.0); Glucose 131 mg/dl (70-99(Fasting)); Potassium 4.2 mmol/L (3.5-5.1); Sodium 136 mmol/L (136-145); Total Protein 7.1 gm/dl (6.0-8.3)
--- NOTE | 2025-10-12 14:20 | XRay Report ---
SINGLE VIEW CHEST CLINICAL HISTORY: Generalized weakness. FINDINGS: An AP, portable, upright chest radiograph is compared to study dated 08/14/2025. Correlatio n is made with chest CT dated 01/25/2025. The examination is degraded by portable technique and patient rotation. The heart is enlarged noting atherosclerotic calcification of the thoracic aorta. The pul monary vasculature is noncongested. There are scattered calcified granulomas. The lungs and pleural s paces are otherwise clear. No pneumothorax is seen. The skeletal structures are osteopenic. The bony thorax is grossly intact. IMPRESSION: Cardiomegaly with no active disease in the chest. ACT 112: Negative or not required by law. Electronically signed by: Krishan Gonzalez M.D. 10/12/2025 2:18 PM
[2025-10-12 14:22] LABS: Influenza A virus by PCR Negative (Neg); Influenza B virus by PCR Negative (Neg); SARS CoV2 RNA(COVID-19) Ceph NEGATIVE (Negative)
--- NOTE | 2025-10-12 14:40 | Electrocardiogram Report ---
Test Reason : Blood Pressure : */* mmHG Vent. Rate : 72 BPM Atrial Rate : * BPM P-R Int : * ms QRS Dur : 130 ms QT Int : 432 ms P-R-T Axes : * -77 16 degrees QTcB Int : 473 ms Sinus rhythm with sinus arrhythmia Right bundle branch block Left anterior fascicular block Bifascicular block Minimal voltage criteria for LVH, may be normal variant T wave abnormality, consider inferior ischemia Abnormal ECG When compared with ECG of 15-Aug-2025 18:27, Right bundle branch block has replaced Incomplete right bundle branch block Confirmed by Antonio King ([id number]) on 10/12/2025 2:39:47 PM Referred By: Confirmed By: Antonio King
[2025-10-12 14:42] LABS: Thyroid Stimulating Hormone 0.678 uIu/ml (0.300-4.500)
[2025-10-12 16:44] LABS: Appearance Urine Clear (Clear); Glucose Urine UA Negative (Negative)
[2025-10-12 16:45] LABS: Bacteria Urine Automated None Seen (None Seen); Cast Urine Automated 0-2 /lpf (0-2); Epithelial Cell Urine Auto 0-2 /hpf (0-2); RBC Urine Automated 0-2 /hpf (0-2); WBC Urine Automated 0-5 /hpf (0-5)
[2025-10-12 16:48] LABS: Starch Talc Urine Present (None Prsent)
[2025-10-12 17:42] LABS: Adenovirus F 40/41 PCR Not Detected (NotDetected); Campylobacter PCR Not Detected (NotDetected); Enteroaggregative E.coli(EAEC) Not Detected (NotDetected); Shiga-like Toxin E.coli (STEC) Not Detected (NotDetected); Vibrio species PCR Not Detected (NotDetected)
[2025-10-12 17:49] LABS: Cdiff Toxin A+B Negative Cdiff Toxin (Negative); Cdiff Toxin B Gene (2yr or >) Positive Cdiff Gene (Neg)
--- NOTE | 2025-10-12 18:05 | History & Physical Report ---
Date of Service October 12, 2025 Assessment & Plan (1) Diarrhea: Plan: Patient is 79 year old male with PMH DM II, HTN, HLD, CVA, internal carotid artery stent, aphasia, vascular dementia presented to ER with c/o diarrhea x 2 days. History obtained from chart review and patient's . History two [facility] hospitalizations in 07/2025 for recurrent C. difficile. Last admission treated with Dificid and was discharged on vancomycin. states stools not as watery as when had c-diff last time In ER afebrile, , P: 72, R: 20, BP 122/86, 98% on room air. No leukocytosis. No significant electrolyte abnormality. Positive C. difficile gene, negative C. difficile toxin Remaining stool culture unremarkable Will hold on c-diff treatment for now. Consult ID for recommendations on treatment given gene positive, toxin negative c. diff Gentle IVF #History of CVA Status post ICA stent Vascular dementia Residual weakness Continue home aspirin, Plavix and statin Reported increased weakness. PT/OT eval Fall precautions Aspiration precautions. Prior speech eval recommended thin liquids, soft bite size #DM II A1c: 7.0 in 06/2025 Hold home long-acting insulin and Insulin sliding scale for now Close monitor #Hyperlipidemia Continue statin DVT Prophylaxis SCDs for now Admit med surg DNR/DNI as per discussion with pt and pt's Follows with Dr Gera Hanley for routine care Pt was seen and care coordinated with Dr Andre. See addendum I spent a total of 67 minutes reviewing notes, outpatient records, labs, medication, coordinating, documenting and providing care for this patient excluding time spent in the performance of separately billed services and excluding time spent by another provider/QHP. History of Present Illness Chief Complaint: diarrhea Primary Care Provider: Gera Hanley DO Patient is 79 year old male with PMH DM II, HTN, HLD, CVA, internal carotid artery stent, aphasia, vascular dementia presented to ER with c/o diarrhea x 2 days. History obtained from chart review and patient's . History two [facility] hospitalizations in 07/2025 for recurrent C. difficile. Last admission treated with Dificid and was discharged on vancomycin. Per patient's his stools returned to normal. She reports he was very weak after those hospitalizations but has been having home PT and currently able to go for outpatient PT. States patient requires assistance with transfers but recently has been able to ambulate very short distances with walker. She states 2 days ago started with 3-4 episodes of loose stool daily. She reports stool is not watery or foul-smelling like previously when had C. difficile. Denies any fever or chills, nausea, vomiting. Denies any melena or or noted hematochezia. She reports patient becoming more weak past 2 days and today was more tired. Otherwise she feels he is at baseline mental status. She reports decreased water intake. States at baseline poor water intake but past couple days even less intake. Denies WALKER, dizziness, CP, SOB, cough, abdominal pain, extremity edema, rashes, urinary symptoms. Discussed patient with ER provider. Patient states feels a little better since getting some IVF in ER and patient's states he seems less tired than on arrival. Allergies Allergy/AdvReac Type Severity Reaction Status Date / Time No Known Allergies Allergy Verified 01/09/25 14:31 Home Medications Medication Instructions Recorded Confirmed Type aspirin 81 mg tablet,delayed 81 mg PO DAILY 08/14/25 10/12/25 History release atorvastatin 80 mg tablet 80 mg PO DAILY 08/14/25 10/12/25 History cholecalciferol (vitamin D3) 25 25 mcg PO DAILY 08/14/25 10/12/25 History mcg (1,000 unit) capsule clopidogrel 75 mg tablet (Plavix) 75 mg PO DAILY 08/14/25 10/12/25 History insulin degludec 100 unit/mL (3 23 unit subcut HS 08/14/25 10/12/25 History mL) subcutaneous pen Past Med/Surg History Problem List Hyperlipidemia Elevated troponin I level (Acute) Fever (Acute) AMS (altered mental status) (Acute) Diarrhea (Acute) C. difficile colitis (Acute) Recent urinary tract infection C. difficile colitis H/O: CVA (cerebrovascular accident) Vascular disease (Acute) Weakness (Acute) Aphasia (Acute) Acute encephalopathy (Acute) Abnormal CT scan of lung Vascular dementia (Acute) Aspiration pneumonia (Acute) Aspiration pneumonia Altered mental status (Acute) Scalp laceration Frequent falls (Acute) DM2 (diabetes mellitus, type 2) Vertebral artery occlusion HTN (hypertension) Carotid stenosis, symptomatic, with infarction Acute CVA (cerebrovascular accident) Memory impairment Transient cerebral ischemia (Acute) Blood glucose elevated (Acute) Medical History LGI bleed Lower GI bleed Encounter for assessment of healthcare decision-making capacity Palliative care by specialist Closed head injury Stroke TIA (transient ischemic attack) Acute confusion Surgical History No pertinent past surgical history Family History Father , He in his 70s of an [place] Primary Parkinson's disease Myocardial infarction Mother , age 101 No problems noted. 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 [employer] Consultant Required: No Beliefs That Will Affect Care: None Current Living Situation: Spouse Feels Safe at Home: Yes Assistive Devices: Mechanical Lift, Slide Board, Walker, Wheelchair and Other Review of Systems Review of Systems: All systems reviewed & are unremarkable except as noted in HPI & below Physical Exam Physical Exam: General: no acute distress, WDWN Head: normocephalic, atraumatic Eyes: conjunctiva non-injected, anicteric ENT: normal inspection external ears, nose, mucous membranes dry Neck: supple, trachea midline Lungs: clear, no respiratory distress, no wheezing/rhonchi/rales CV: RRR, +systolic murmur, no pretibial edema Abd: hyperactive BS, soft, non-tender Ext: no cyanosis, no calf tenderness Neuro: Alert, oriented to person, place, +diffuse weakness Skin: warm, dry Results & Data Results & Data Vital Signs (Past 12 Hours) Vital Signs Temp Pulse Resp BP Pulse Ox O2 Del Method 10/12/25 17:00 62 13 10/12/25 16:30 61 12 140/71 10/12/25 16:00 61 12 132/82 10/12/25 15:30 61 13 110/57 L 10/12/25 15:00 53 L 15 113/58 L 10/12/25 14:30 56 L 10 L 98/52 L 10/12/25 14:16 57 L 10/12/25 13:41 98 Room Air 10/12/25 13:04 36.2 C L 72 20 122/86 98 Room Air Laboratory Results Short CBC 10/12/25 Range/Units 13:21 WBC 8.91 (4.8-10.8) K/ul Hgb 14.3 (14.0-18.0) g/dL Hct 40.7 L (42.0-52.0) % Plt Count 197 (130-400) K/uL BMP 10/12/25 13:21 Sodium 136 Potassium 4.2 Chloride 102 Carbon Dioxide 28 BUN 15 Creatinine 0.67 Glucose 131 H Calcium 9.4 Liver Function 10/12/25 Range/Units 13:21 Total Bilirubin 0.9 (0.2-1.0) mg/dl AST 17 (13-39) U/L ALT 16 (7-52) U/L Alkaline Phosphatase 47 (34-104) U/L Albumin 4.0 (3.4-5.0) gm/dl Urine 10/12/25 Range/Units 16:00 Urine Color Yellow Urine Appearance Clear (Clear) Urine pH 5.0 (4.5-7.5) Ur Specific [place] 1.027 (1.000-1.030) Urine Protein Negative (Negative) Urine Glucose (UA) Negative (Negative) Diagnostic Findings Chest X-Ray 10/12/25 13:08 SINGLE VIEW CHEST CLINICAL HISTORY: Generalized weakness. FINDINGS: An AP, portable, upright chest radiograph is compared to study dated 08/14/2025. Correlation is made with chest CT dated 01/25/2025. The examination is degraded by portable technique and patient rotation. The heart is enlarged noting atherosclerotic calcification of the thoracic aorta. The pulmonary vasculature is noncongested. There are scattered calcified granulomas. The lungs and pleural spaces are otherwise clear. No pneumothorax is seen. The skeletal structures are osteopenic. The bony thorax is grossly intact. IMPRESSION: Cardiomegaly with no active disease in the chest. ACT 112: Negative or not required by law. Electronically signed by: Krishan Gonzalez M.D. 10/12/2025 2:18 PM Supervising Physician Co-Signing Physician Notes Patient familiar to this provider. Presenting with concerns of dehydration. Patient presentation consistent with progressive cognitive impairment. Diarrhea is small in amount, c. diff toxin negative. Hemodynamics and lab work unremarkable. Hold abx for now, consult ID for recommendations on treatment given gene positive, toxin negative c. diff. Gentle hydration. I have discussed the case with the collaborating advanced practitioner. I agree with the above H&P. I have reviewed and confirmed the patients medical history, the findings on physical examination, and the patients diagnosis and treatment plan with Radha Mabry PA-C and agree with the information documented. I spent a total of 10 minutes coordinating, documenting, and providing care for this patient excluding time spent in the performance of separately billed services. All of the aforementioned completed outside of collaborating with the assigned advanced practitioner for a full treatment plan. I have reviewed the advanced practitioner's documentation, and I agree with, and take responsibility for the plan of care
--- NOTE | 2025-10-12 18:33 | Emergency Department Note ---
ED Visit Note I was consulted by the Advanced Practice Provider, Leila SHARPE. I performed a substantive portion of the visit. This includes aspects of: History: This is a 79-year-old male with a past medical history significant forR [employer] stroke in December with extensive rehabilitation stay, HTN, DM2 and vascular dementia presenting to the emergency department for further evaluation generalized weakness in the setting of likely dehydration and diarrhea. Patient does have a history of C. difficile infection in the last few months. There were concerns for recurrent infection. MDM: The patient is mildly bradycardic and hypotensive. He is otherwise afebrile and hemodynamically stable. Patient did appear clinically hypovolemic on physical examination per Leila SHARPE. Patient underwent laboratory evaluation that showed no significant leukocytosis or anemia. Patient has no significant electrolyte derangements. He has a normal urinalysis that does not demonstrate evidence of UTI. C. difficile testing was positive. CXR independently interpreted by me reveals no evidence of focal consolidation to suggest pna. No large pneumothorax or pleural effusion. No obvious displaced rib fracture. The patient was managed with IV fluid resuscitation. Patient may benefit from p.o. antibiotics with vancomycin for C. difficile infection. Uncle ar if this is recurrent or if the patient is chronically colonized. Patient will require significant amount of nursing care and for this reason we are concern for safety regarding return home. Given severe weakness, the patient will be admitted to the hospitalist service. Clayton Rios DO Emergency Medicine .
[2025-10-12] MEDS ORDERED: GLUCOSE 10 TAB/TUBE PO PRN (19:21)
[2025-10-12] MEDS ORDERED: ONDANSETRON INJ 2 MG/ML 2 ML VIAL IV PRN (19:21)
[2025-10-12] MEDS ORDERED: CARBOHYDRATES FOR HYPOGLYCEMIA PO PRN (19:21)
[2025-10-12] MEDS ORDERED: DEXTROSE 50% 50 ML SYRINGE IV PRN (19:21)
[2025-10-12] MEDS ORDERED: POLYETHYLENE (MIRALAX) 17 GM PACK PO PRN (19:21)
[2025-10-12] MEDS ORDERED: ACETAMINOPHEN 325 MG TAB PO PRN (19:21)
[2025-10-12] MEDS ORDERED: GLUCOSE 40% GEL 15 GM TUBE PO PRN (19:21)
[2025-10-12] MEDS ORDERED: GLUCAGON FOR INJ 1 MG VIAL SQ PRN (19:21)
[2025-10-12] MEDS: SODIUM CHLORIDE 0.9% 1,000 ML IV SCH (19:38)
[2025-10-12] MEDS: INSULIN ASPART PER UNIT CHARGE SC SCH (20:30)
[2025-10-13 07:53] LABS: Hematocrit (blood only) 37.9 % (42.0-52.0); Hemoglobin 13.2 g/dL (14.0-18.0); Mean Corpuscular Hemoglobin 30.9 pg (25.0-34.0); Mean Corpuscular Volume 88.8 fL (80.0-100.0); Platelet Count 186 K/uL (130-400); RDW Standard Deviation 43.5 fL (36.4-46.3); Red Blood Count 4.27 M/uL (4.70-6.10); White Blood Count 5.40 K/ul (4.8-10.8)
[2025-10-13 08:07] LABS: Anion Gap 6.0 (3-11); Blood Urea Nitrogen 10.0 mg/dl (6-23); Calcium 8.6 mg/dl (8.6-10.3); Carbon Dioxide 27.0 mmol/L (21-32); Chloride 104.0 mmol/L (98-107); Creatinine Clr Calc Pharmacy 85.8 ml/min; Glucose 105.0 mg/dl (70-99(Fasting)); Magnesium 1.9 mg/dl (1.7-2.4); Potassium 3.8 mmol/L (3.5-5.1); Sodium 137.0 mmol/L (136-145)
[2025-10-13] MEDS: CHOLECALCIFEROL 25 MCG (1000 UNITS) TAB PO SCH (08:59)
[2025-10-13] MEDS: ATORVASTATIN 40 MG TAB PO SCH (08:59)
[2025-10-13] MEDS: CLOPIDOGREL BISULFATE 75 MG TAB PO SCH (08:59)
[2025-10-13] MEDS: ASPIRIN 81 MG ECTAB PO SCH (08:59)
--- NOTE | 2025-10-13 13:59 | Hospitalist Progress Note ---
Date of Service October 13, 2025 Assessment & Plan (1) Diarrhea: Plan: 79 year old male with PMH DM II, HTN, HLD, CVA, internal carotid artery stent, aphasia, vascular dementia presented to ER with c/o diarrhea x 2 days. History obtained from chart review and patient's . History two [facility] hospitalizations in 07/2025 for recurrent C. difficile. Last admission treated with Dificid and was discharged on vancomycin. In ER afebrile, , P: 72, R: 20, BP 122/86, 98% on room air. No leukocytosis. No significant electrolyte abnormality. Positive C. difficile gene, negative C. difficile toxin Communicated with ID Dr Sigala today. He recommends holding off c diff treatment and evaluating other causes of diarrhea Per RN, had a smear this AM and one large liquid BM this afternoon Will continue to monitor BM Monitor volume status and electrolytes #History of CVA Status post ICA stent Vascular dementia Residual weakness Continue home aspirin, Plavix and statin reported increased weakness. PT/OT eval Fall precautions Aspiration precautions. Prior speech eval recommended thin liquids, soft bite size. Tolerating diet well during my eval #DM II A1c: 7.0 in 06/2025 Hold home long-acting insulin Continue Insulin sliding scale for now Monitor #Hyperlipidemia Continue statin DVT Prophylaxis - lovenox sq DNR/DNI Updated at bedside I spent a total of 50 minutes coordinating, documenting and providing care for this patient excluding time spent in performance of separately billed services Admission and Anticipated Discharge Date Admission Date: October 12, 2025 Subjective Patient seen and examined He is alert and oriented to person, knows he is in a hospital but not location, not oriented to time ROS limited by dementia Physical Exam Constitutional: + well hydrated; no acute distress Eyes: PERRL, conjunctivae normal, anicteric sclerae ENMT: external ear and nose normal, oropharynx normal Respiratory: normal respiratory effort, lungs clear to auscultation Cardiovascular: Rate/Rhythm: regular rate and regular rhythm Gastrointestinal (Abdomen): normal bowel sounds, soft, nontender, no hepatosplenomegaly Neurologic: PERRL EOMI Alert and oriented to person, knows he is in a hospital but not location, not oriented to time Results & Data Results & Data Vital Signs (Past 12 Hours) Vital Signs Temp Pulse Resp BP Pulse Ox O2 Del Method 10/13/25 09:00 Room Air 12/23/25 07:17 35.5 C L 65 16 164/83 H 98 Room Air Laboratory Results Abnormal lab results 10/12/25 10/13/25 10/13/25 Range/Units 16:00 06:59 11:30 RBC 4.27 L (4.70-6.10) M/uL Hgb 13.2 L (14.0-18.0) g/dL Hct 37.9 L (42.0-52.0) % MPV 9.1 L (9.4-12.4) fL Glucose 105 H (70-99(Fasting)) mg/dl POC Glucose 112 H (70-99) mg/dl Urine Ketones Trace H (Negative) Ur Leukocyte Esterase Trace H (Negative) Calcium Oxalate Crystal Present A (None Prsent) Talc Crystals Present H (None Prsent) Urine Mucus Present A (None Prsent) Stl C. diff Tox B Gene Positive Cdiff Gene A (Neg)
[2025-10-13] MEDS: ENOXAPARIN INJ 40 MG/0.4 ML SYR SQ SCH (16:45)
[2025-10-14 07:09] LABS: Hematocrit (blood only) 38.5 % (42.0-52.0); Hemoglobin 14.0 g/dL (14.0-18.0); Mean Corpuscular Hemoglobin 32.2 pg (25.0-34.0); Mean Corpuscular Volume 88.5 fL (80.0-100.0); Platelet Count 206 K/uL (130-400); RDW Standard Deviation 42.1 fL (36.4-46.3); Red Blood Count 4.35 M/uL (4.70-6.10); White Blood Count 5.80 K/ul (4.8-10.8)
[2025-10-14 08:04] LABS: Anion Gap 8.0 (3-11); Blood Urea Nitrogen 11.0 mg/dl (6-23); Calcium 9.1 mg/dl (8.6-10.3); Carbon Dioxide 27.0 mmol/L (21-32); Chloride 101.0 mmol/L (98-107); Creatinine Clr Calc Pharmacy 83.4 ml/min; Glucose 121.0 mg/dl (70-99(Fasting)); Magnesium 1.9 mg/dl (1.7-2.4); Potassium 3.5 mmol/L (3.5-5.1); Sodium 136.0 mmol/L (136-145)
--- NOTE | 2025-10-14 12:26 | Hospitalist Progress Note ---
Date of Service October 14, 2025 Assessment & Plan (1) Diarrhea: Plan: per previous hospitalist notes with addendum: 79 year old male with PMH DM II, HTN, HLD, CVA, internal carotid artery stent, aphasia, vascular dementia presented to ER with c/o diarrhea x 2 days. History obtained from chart review and patient's . History two [facility] hospitalizations in 07/2025 for recurrent C. difficile. Last admission treated with Dificid and was discharged on vancomycin. In ER afebrile, , P: 72, R: 20, BP 122/86, 98% on room air. No leukocytosis. No significant electrolyte abnormality. Positive C. difficile gene, negative C. difficile toxin Communicated with ID Dr Sigala today. He recommends holding off c diff treatment and evaluating other causes of diarrhea Per RN, had a smear this AM and one large liquid BM this afternoon Will continue to monitor BM Monitor volume status and electrolytes 10/14 no diarrhea today tolerating regular diet monitor #History of CVA Status post ICA stent Vascular dementia Residual weakness Continue home aspirin, Plavix and statin reported increased weakness. PT/OT eval Fall precautions Aspiration precautions. Prior speech eval recommended thin liquids, soft bite size. Tolerating diet well during my eval #DM II A1c: 7.0 in 06/2025 Hold home long-acting insulin Continue Insulin sliding scale for now Monitor #Hyperlipidemia Continue statin DVT Prophylaxis - lovenox sq DNR/DNI Disposition lives with family at home Admission and Anticipated Discharge Date Admission Date: October 12, 2025 Subjective seen resting in bed, sitting up, comfortable states he feels fine overall no diarrhea today- confirmed with RN no abdominal pain, nausea, chills no other symptoms Review of Systems Review of Systems: all noted and negative except for above Physical Exam Physical Exam: General- oriented x 1, not in distress, speaks in sentences with no effort or accessory muscle use Eyes- anicteric Neck- no JVD Lungs- clear breath sounds bilaterally, no rales/wheezes Heart- normal rate, regular rhythm; no murmurs Abdomen- normal bowel sounds, nondistended, soft, nontender Extremities- no pretibial edema, no calf tenderness Neuro- alert, oriented x 3; no gross focal neurologic deficits Skin- warm & dry Results & Data Results & Data Vital Signs (Past 12 Hours) Vital Signs Temp Pulse Resp BP Pulse Ox O2 Del Method 10/14/25 09:53 Room Air 10/14/25 07:35 36.6 C 108 H 18 144/81 H 97 Room Air
--- NOTE | 2025-10-15 15:26 | Hospitalist Progress Note ---
Date of Service October 15, 2025 Assessment & Plan (1) Diarrhea: Plan: per previous hospitalist notes with addendum: 79 year old male with PMH DM II, HTN, HLD, CVA, internal carotid artery stent, aphasia, vascular dementia presented to ER with c/o diarrhea x 2 days. History obtained from chart review and patient's . History two [facility] hospitalizations in 07/2025 for recurrent C. difficile. Last admission treated with Dificid and was discharged on vancomycin. In ER afebrile, , P: 72, R: 20, BP 122/86, 98% on room air. No leukocytosis. No significant electrolyte abnormality. Positive C. difficile gene, negative C. difficile toxin Communicated with ID Dr Sigala today. He recommends holding off c diff treatment and evaluating other causes of diarrhea Per RN, had a smear this AM and one large liquid BM this afternoon Will continue to monitor BM Monitor volume status and electrolytes 10/14 no diarrhea today tolerating regular diet monitor 10/15 diarrhea resolved will request PT/OT to reevaluate patient #History of CVA Status post ICA stent Vascular dementia Residual weakness Continue home aspirin, Plavix and statin reported increased weakness. PT/OT eval Fall precautions Aspiration precautions. Prior speech eval recommended thin liquids, soft bite size. Tolerating diet well during my eval #DM II A1c: 7.0 in 06/2025 Hold home long-acting insulin Continue Insulin sliding scale for now Monitor #Hyperlipidemia Continue statin DVT Prophylaxis - lovenox sq DNR/DNI Disposition lives with family at home Admission and Anticipated Discharge Date Admission Date: October 12, 2025 Subjective seen resting in bed, comfortable patient's Ana Maria at bedside, visiting states he feels fine overall no diarrhea, abdominal pain, nausea no fever/chills no other symptoms Review of Systems Review of Systems: all noted and negative except for above Physical Exam Physical Exam: General- oriented x 2, not in distress, speaks in sentences with no effort or accessory muscle use Eyes- anicteric Neck- no JVD Lungs- clear BS bilaterally, no rales/wheezes Heart- normal rate, regular rhythm; no murmurs Abdomen- normal bowel sounds, nondistended, soft, no tenderness Extremities- no pretibial edema, no calf tenderness Neuro- alert, oriented x 2; no gross focal neurologic deficits Skin- warm & dry Results & Data Results & Data Vital Signs (Past 12 Hours) Vital Signs Temp Pulse Resp BP Pulse Ox O2 Del Method 10/15/25 07:57 36.8 C 57 L 14 134/84 97 Room Air 10/15/25 07:25 Room Air all noted and reviewed including below
--- NOTE | 2025-10-16 15:06 | Hospitalist Progress Note ---
Date of Service October 16, 2025 Assessment & Plan (1) Diarrhea: Plan: per previous hospitalist notes with addendum: 79 year old male with PMH DM II, HTN, HLD, CVA, internal carotid artery stent, aphasia, vascular dementia presented to ER with c/o diarrhea x 2 days. History obtained from chart review and patient's . History two [facility] hospitalizations in 07/2025 for recurrent C. difficile. Last admission treated with Dificid and was discharged on vancomycin. In ER afebrile, , P: 72, R: 20, BP 122/86, 98% on room air. No leukocytosis. No significant electrolyte abnormality. Positive C. difficile gene, negative C. difficile toxin Communicated with ID Dr Sigala today. He recommends holding off c diff treatment and evaluating other causes of diarrhea Will continue to monitor BM Monitor volume status and electrolytes 10/16 diarrhea resolved, no diarrhea for the past 3 days will request PT/OT to reevaluate patient--> recommend inpatient rehab patient's prefers patient to return home with home health services #History of CVA Status post ICA stent Vascular dementia Residual weakness Continue home aspirin, Plavix and statin reported increased weakness. PT/OT eval Fall precautions Aspiration precautions. Prior speech eval recommended thin liquids, soft bite size. Tolerating diet well #DM II A1c: 7.0 in 06/2025 Hold home long-acting insulin Continue Insulin sliding scale for now Monitor #Hyperlipidemia Continue statin DVT Prophylaxis - lovenox sq DNR/DNI Disposition patient's Ana Maria prefers patient to return home with home PT/OT possible d/c tomorrow Admission and Anticipated Discharge Date Admission Date: October 12, 2025 Subjective seen resting in bed, comfortable no abdominal pain, nausea feels fine overall per RN, no diarrhea today Review of Systems Review of Systems: all noted and negative except for above Physical Exam Physical Exam: General- pleasantly confused, not in distress, speaks in sentences with no effort or accessory muscle use Eyes- anicteric Neck- no JVD Lungs- clear breath sounds bilaterally Heart- normal rate, regular rhythm; no murmurs Abdomen- normal bowel sounds, nondistended, soft, nontender Extremities- no pretibial edema, no calf tenderness Neuro- alert,pleasantly confused; no gross focal neurologic deficits Skin- warm & dry Results & Data Results & Data Vital Signs (Past 12 Hours) Vital Signs Temp Pulse Resp BP Pulse Ox O2 Del Method 10/16/25 11:27 36.2 C L 63 23 115/73 96 Room Air 10/16/25 07:56 Room Air 10/16/25 07:09 35.9 C L 62 24 162/94 H 97 Room Air all noted and reviewed including below
[2025-10-17 12:42] LABS: Hematocrit (blood only) 44.9 % (42.0-52.0); Hemoglobin 15.4 g/dL (14.0-18.0); Mean Corpuscular Hemoglobin 31.5 pg (25.0-34.0); Mean Corpuscular Volume 91.8 fL (80.0-100.0); Platelet Count 263 K/uL (130-400); RDW Standard Deviation 45.3 fL (36.4-46.3); Red Blood Count 4.89 M/uL (4.70-6.10); White Blood Count 14.42 K/ul (4.8-10.8)
[2025-10-17] MEDS: FIDAXOMICIN 200 MG TAB PO SCH (12:58)
[2025-10-17 13:00] LABS: Anion Gap 9.0 (3-11); Blood Urea Nitrogen 22.0 mg/dl (6-23); Calcium 9.5 mg/dl (8.6-10.3); Carbon Dioxide 27.0 mmol/L (21-32); Chloride 102.0 mmol/L (98-107); Creatinine Clr Calc Pharmacy 78.0 ml/min; Glucose 169.0 mg/dl (70-99(Fasting)); Potassium 4.0 mmol/L (3.5-5.1); Sodium 138.0 mmol/L (136-145)
--- NOTE | 2025-10-17 17:39 | Hospitalist Progress Note ---
Date of Service October 17, 2025 Assessment & Plan (1) Diarrhea: Plan: Mr. Oconnor is a 79 year old male with PMH DM II, HTN, HLD, CVA, internal carotid artery stent, aphasia, vascular dementia presented to ER with c/o diarrhea x 2 days. History obtained from chart review and patient's . History two [facility] hospitalizations in 07/2025 for recurrent C. difficile. Last admission treated with Dificid and was discharged on vancomycin. In ER afebrile, , P: 72, R: 20, BP 122/86, 98% on room air. No leukocytosis. No significant electrolyte abnormality. Positive C. difficile gene, negative C. difficile toxin Communicated with ID Dr Sigala today. He recommends holding off c diff treatment and evaluating other causes of diarrhea Will continue to monitor BM Monitor volume status and electrolytes #Diarrhea #Leuckocytosis #Recurrent c diff initially diarrhea resolved, then this am with multiple incontinent stools iso new WBC start fidoximicin contact precautions would need help with transport if possible, plan to discuss with CM tomorrow possible d/c tomorrow #History of CVA Status post ICA stent Vascular dementia Residual weakness Continue home aspirin, Plavix and statin reported increased weakness. PT/OT eval Fall precautions Aspiration precautions. Prior speech eval recommended thin liquids, soft bite size. Tolerating diet well #DM II A1c: 7.0 in 06/2025 Hold home long-acting insulin Continue Insulin sliding scale for now Monitor #Hyperlipidemia Continue statin DVT Prophylaxis - lovenox sq DNR/DNI Admission and Anticipated Discharge Date Admission Date: October 12, 2025 Subjective new WBC and increased watery/incontient stool this am after multiple days of resolution denies nausea or vomiting, some mild abdominal discomfort at bedside reports understanding of plan at this time patient alert to self Physical Exam Constitutional: WD/WN, vitals as above Cardiovascular: RRR, no murmur, no edema Gastrointestinal (Abdomen): normal bowel sounds, soft, nontender, no hepatosplenomegaly Neurologic: alert to self Results & Data Results & Data Vital Signs (Past 12 Hours) Vital Signs Temp Pulse Resp BP Pulse Ox O2 Del Method 10/17/25 15:04 36.6 C 63 18 125/78 94 Room Air 10/17/25 09:06 Room Air 10/17/25 07:09 36.6 C 71 16 108/73 97 Room Air Laboratory Results Short CBC 10/17/25 Range/Units 12:20 WBC 14.42 H (4.8-10.8) K/ul Hgb 15.4 (14.0-18.0) g/dL Hct 44.9 (42.0-52.0) % Plt Count 263 (130-400) K/uL BMP 10/17/25 12:20 Sodium 138 Potassium 4.0 Chloride 102 Carbon Dioxide 27 BUN 22 Creatinine 0.77 Glucose 169 H Calcium 9.5 Medications Administered Home Medications Medication Instructions Recorded Confirmed Last Taken aspirin 81 mg tablet,delayed 81 mg PO DAILY 08/14/25 10/12/25 Unknown release atorvastatin 80 mg tablet 80 mg PO DAILY 08/14/25 10/12/25 Unknown cholecalciferol (vitamin D3) 25 25 mcg PO DAILY 08/14/25 10/12/25 Unknown mcg (1,000 unit) capsule clopidogrel 75 mg tablet (Plavix) 75 mg PO DAILY 08/14/25 10/12/25 Unknown insulin degludec 100 unit/mL (3 23 unit subcut HS 08/14/25 10/12/25 Unknown mL) subcutaneous pen Active Medications Generic Name Dose Route Start Last Admin Trade Name Freq PRN Reason Stop Dose Admin Aspirin 81 mg 10/13/25 09:00 10/17/25 07:47 Aspirin 81 Mg Ectab PO 11/12/25 08:59 81 mg DAILY PAO Administration Atorvastatin Calcium 80 mg 10/13/25 09:00 10/17/25 07:46 Atorvastatin 40 Mg Tab PO 11/12/25 08:59 80 mg DAILY PAO Administration Clopidogrel Bisulfate 75 mg 10/13/25 09:00 10/17/25 07:46 Clopidogrel Bisulfate 75 Mg Tab PO 11/12/25 08:59 75 mg DAILY PAO Administration Enoxaparin Sodium 40 mg 10/13/25 16:00 10/17/25 07:46 Enoxaparin Inj 40 Mg/0.4 Ml Syr SQ 11/12/25 15:59 40 mg QAM PAO Administration Fidaxomicin 200 mg 10/17/25 12:45 10/17/25 12:58 Fidaxomicin 200 Mg Tab PO 10/27/25 12:44 200 mg BID PAO Administration Insulin Aspart 0 units 10/12/25 21:00 10/17/25 17:15 Insulin Aspart Per Unit Charge SC 11/11/25 20:59 3 units ACHS PAO Administration Vitamin D 25 mcg 10/13/25 09:00 10/17/25 07:46 Cholecalciferol 25 Mcg (1000 Units) Tab PO 11/12/25 08:59 25 mcg DAILY PAO Administration
[2025-10-18 06:35] LABS: Hematocrit (blood only) 38.1 % (42.0-52.0); Hemoglobin 13.0 g/dL (14.0-18.0); Mean Corpuscular Hemoglobin 31.2 pg (25.0-34.0); Mean Corpuscular Volume 91.4 fL (80.0-100.0); Platelet Count 215 K/uL (130-400); RDW Standard Deviation 44.7 fL (36.4-46.3); Red Blood Count 4.17 M/uL (4.70-6.10); White Blood Count 8.38 K/ul (4.8-10.8)
[2025-10-18 07:06] VITALS: BP 126/79; PULSE 58; RESP 16; TEMP 97.2; O2SAT 96
[2025-10-18 07:14] LABS: Anion Gap 6.0 (3-11); Blood Urea Nitrogen 20.0 mg/dl (6-23); Calcium 9.0 mg/dl (8.6-10.3); Carbon Dioxide 27.0 mmol/L (21-32); Chloride 105.0 mmol/L (98-107); Creatinine Clr Calc Pharmacy 80.0 ml/min; Glucose 133.0 mg/dl (70-99(Fasting)); Potassium 3.8 mmol/L (3.5-5.1); Sodium 138.0 mmol/L (136-145)
--- NOTE | 2025-10-18 09:34 | Discharge Summary ---
Discharge Summary Date of Service October 18, 2025 Principal Dx & Hospital Course #1 = Principal Diagnosis (1) Diarrhea: Mr. Oconnor is a 79 year old male with PMH DM II, HTN, HLD, CVA, internal carotid artery stent, aphasia, vascular dementia presented to ER with c/o diarrhea x 2 days. History obtained from chart review and patient's . History two [facility] hospitalizations in 07/2025 for recurrent C. difficile. Last admission treated with Dificid and was discharged on vancomycin. Labs revealed positive C. difficile gene, negative C. difficile toxin. Patient was doing well for multiple days, however, come 10/17 he was noted to have leukocytosis and about 5 incontinent bowel movements. Give thought that gastroenteritis likely preciptated c diff recurrence, patient was placed on fidoximicin. Sent script to pharmacy and noted to be $3300 with coupon. Ultimately, sent a script for vancomycin taper. During admission, patient was recommended to go to rehab given weakness; however declined. On day of discharge, patient was eating and seemingly at baseline her . Transport was arranged for patient to return home. Leukocytosis resolved. #Diarrhea #Leuckocytosis #Recurrent c diff initially diarrhea resolved, then this am with multiple incontinent stools iso new WBC start fidoximicin--transitioned to taper vanco po given out of pocket costs improved as of 10/18 #History of CVA Status post ICA stent Vascular dementia Residual weakness Continue home aspirin, Plavix and statin reported increased weakness. PT/OT eval: recommended rehab, declined by Fall precautions Aspiration precautions. Prior speech eval recommended thin liquids, soft bite size. Tolerating diet well #DM II A1c: 7.0 in 06/2025 resume home regimen #Hyperlipidemia Continue statin Notes For Next Care Provider Recommend referral to Infectious Disease for recurrent c diff Medication Changes From Visit Take 125 mg 4 times per day for 10 days (10/27); 2 times per day for 7 days (10/28-11/03); once daily for 7 days(11/04-11/10); once every 2-3 days for 2-8 weeks times a day until all tablets are complete. You should follow up with your PCP and request outpatient infectious disease referral to monitor your risk for recurrent infection. Admission HPI Per Admitting Provider Patient is 79 year old male with PMH DM II, HTN, HLD, CVA, internal carotid artery stent, aphasia, vascular dementia presented to ER with c/o diarrhea x 2 days. History obtained from chart review and patient's . History two [facility] hospitalizations in 07/2025 for recurrent C. difficile. Last admission treated with Dificid and was discharged on vancomycin. Per patient's his stools returned to normal. She reports he was very weak after those hospitalizations but has been having home PT and currently able to go for outpatient PT. States patient requires assistance with transfers but recently has been able to ambulate very short distances with walker. She states 2 days ago started with 3-4 episodes of loose stool daily. She reports stool is not watery or foul-smelling like previously when had C. difficile. Denies any fever or chills, nausea, vomiting. Denies any melena or or noted hematochezia. She reports patient becoming more weak past 2 days and today was more tired. Otherwise she feels he is at baseline mental status. She reports decreased water intake. States at baseline poor water intake but past couple days even less intake. Denies WALKER, dizziness, CP, SOB, cough, abdominal pain, extremity edema, rashes, urinary symptoms. Discussed patient with ER provider. Patient states feels a little better since getting some IVF in ER and patient's states he seems less tired than on arrival. Admission Exam Per Admitting Provider General: no acute distress, WDWN Head: normocephalic, atraumatic Eyes: conjunctiva non-injected, anicteric ENT: normal inspection external ears, nose, mucous membranes dry Neck: supple, trachea midline Lungs: clear, no respiratory distress, no wheezing/rhonchi/rales CV: RRR, +systolic murmur, no pretibial edema Abd: hyperactive BS, soft, non-tender Ext: no cyanosis, no calf tenderness Neuro: Alert, oriented to person, place, +diffuse weakness Skin: warm, dry Discharge Exam Constitutional WD/WN, vitals as above Cardiovascular Rate/Rhythm: regular rate and regular rhythm Gastrointestinal (Abdomen) normal bowel sounds, soft, nontender, no hepatosplenomegaly Updated Medication List Medication Instructions Recorded Confirmed Type aspirin 81 mg tablet,delayed 81 mg PO DAILY 08/14/25 10/12/25 History release atorvastatin 80 mg tablet 80 mg PO DAILY 08/14/25 10/12/25 History cholecalciferol (vitamin D3) 25 25 mcg PO DAILY 08/14/25 10/12/25 History mcg (1,000 unit) capsule clopidogrel 75 mg tablet (Plavix) 75 mg PO DAILY 08/14/25 10/12/25 History insulin degludec 100 unit/mL (3 23 unit subcut HS 08/14/25 10/12/25 History mL) subcutaneous pen vancomycin 125 mg capsule 125 mg PO DIRECTED #68 caps 10/18/25 Rx Hospital Stay Data Consultations 10/12/25 18:00 ED Decision to Admit Stat Pending Results Patient Have Any Pending Studies at Discharge: No Discharge Instructions Given to Patient (Per Discharging Provider) You were admitted for GI illness, thought to initially be gastroenteritis; however, concern for recurrence of c diff given return of diarrhea. you were started on . You will take oral vancomycin as follows: Take 125 mg 4 times per day for 10 days (10/27); 2 times per day for 7 days (10/28-11/03); once daily for 7 days(11/04-11/10); once every 2-3 days for 2-8 weeks times a day until all tablets are complete. You should follow up with your PCP and request outpatient infectious disease referral to monitor your risk for recurrent infection. Total Time Total Time Spent Total Time Spent (In Minutes): 55
[2025-10-18] MEDS ORDERED: VANCOMYCIN HCL 125 MG CAP PO SCH ×2 (18:00)
== END 2025-10-18 15:28 | disposition home health service (06) | DRG 373 ==
LOC: ED 12:54 → SUATTDRO 18:12 → EDINP 18:12 → 3W 19:21